=== PATIENT | female | born 1950 | race Caucasian/White ===

== ENCOUNTER 2021-08-17 09:38 | Outpatient (CLI) | payer MEDICARE, MEDICAID, SELFPAY ==
--- NOTE | 2021-08-17 09:45 | US_ITS ---
STUDY: RENAL ULTRASOUND - COMPLETE REASON FOR EXAM: Female, 70 years old. Neoplasm of unspecified behavior of other genitourinary organ TECHNIQUE: Ultrasound evaluation of the kidneys was performed with real-time and static schreiber-scale imaging. COMPARISON: None. FINDINGS: RIGHT KIDNEY: Normal location of the right kidney, which is normal in size. The right kidney measures 10.2 cm x 5.6 x 6.4 cm. There is a normal cortex of the right kidney. The renal cortex measures 1.1 cm. There is a 6.1 cm x 5.4 cm x 5.3 cm cyst in the lower pole of the right kidney. There are no right renal calculi. There is no right hydronephrosis. DISTAL RIGHT URETER: There is non-visualization of the distal right ureter. There is no demonstrated right ureterovesical junction calculus. There is a visualized right ureteral jet. LEFT KIDNEY: Normal location of the left kidney, which is normal in size. The left kidney measures 9.8 cm x 4.5 cm x 4.5 cm. There is a normal cortex of the left kidney. The renal cortex measures 1.2 cm. There is no left renal mass or cyst. There are no left renal calculi. There is no left hydronephrosis. DISTAL LEFT URETER: There is non-visualization of the distal left ureter. There is no demonstrated left ureterovesical junction calculus. There is a visualized left ureteral jet. BLADDER: The distended urinary bladder has a volume of 38 ml. There is a normal wall thickness of the distended urinary bladder. There is no demonstrated mass within the urinary bladder. There are no demonstrated bladder calculi. US/Kidney and Bladder IMPRESSION: There is a 6.1 cm x 5.4 cm x 5.3 cm cyst in the lower pole of the right kidney. Electronically Signed: Joshua Panchal MD at 12:51 EST ,
== END 2021-08-17 23:59 | disposition home or self-care (01) ==
PROVIDERS: PCP Internal Medicine; Referring Provider Urology; Visit Provider Urology
DX: D49.59 Neoplasm of unspecified behavior of other genitourinary organ (principal)
CPT/HCPCS: 76770

== ENCOUNTER 2021-09-23 09:58 | Outpatient (CLI) | payer MEDICARE, MEDICAID, SELFPAY ==
--- NOTE | 2021-09-23 10:08 | MRI_ITS ---
STUDY: MR PELVIS WITH T WITHOUT CONTRAST REASON FOR EXAM: Female, 70 years old. URETHRAL DIVERTICULUM, urgency TECHNIQUE: Standardized fat and water weighted pulse sequences were obtained in all 3 orthogonal planes, pre-and post contrast administration. IV 15ml Dotarem was administered for the contrast portion of the examination. COMPARISON: None. FINDINGS: The urinary bladder is not well-distended but there is relative wall thickening and trabecular thickening. No discrete bladder wall mass. There is urethra has a normal MRI appearance (evident on image 19-26 series 5) without associated mass or diverticulum. No periurethral mass or fluid collection. Visualized hollow viscus structures are unremarkable. There is significant thickening of the endometrial canal measuring up to 2.3 cm with small cystic foci. There is no pelvic fluid. There is no pelvic mass lesion or lymphadenopathy. Normal visualized pelvic arteries. Normal osseous structures. Normal abdominal wall. MRI/Pelvis W/WO Contrast IMPRESSION: 1. No urethral diverticulum or mass. 2. Diffuse, significant thickening of the endometrial canal with cystic transformation, considered abnormal for a postmenopausal female (differential considerations include cystic endometrial hyperplasia or neoplasm). Correlation with history of postmenopausal bleeding and endometrial sampling suggested, if not previously performed. 3. Small volume urinary bladder with trabecular/wall thickening suggesting muscular hyperplasia. Electronically Signed: Black Casey MD ([place]) at 8:37 EDT ,
[2021-09-23 10:31] LABS: CREATININE FINGERSTICK 0.6 mg/dL (0.55-1.02); EGFR FINGERSTICK > 60.0000 mL/min (>60)
== END 2021-09-23 23:59 | disposition home or self-care (01) ==
PROVIDERS: PCP Internal Medicine; Referring Provider Urology; Visit Provider Urology
DX: N36.1 Urethral diverticulum (principal)
CPT/HCPCS: 72197; A9575

== ENCOUNTER 2021-10-07 14:00 | Outpatient (CLI) | payer MEDICARE, MEDICAID, SELFPAY ==
--- NOTE | 2021-10-07 14:43 | RAD_ITS ---
STUDY: X-RAY CHEST REASON FOR EXAM: Female, 70 years old. chest wall pain, pre-op TECHNIQUE: Frontal and lateral views. COMPARISON: Previous chest radiographs of 07/02/2012. FINDINGS: Findings of remote granulomatous infection are again noted. No acute pulmonary infiltrates. No pleural effusion or pneumothorax. Heart size and pulmonary vasculature remain within normal limits. Thoracic aorta again noted to be calcific, and is not elongated. Osseous structures are demineralized. Old posterior left rib fracture. Degenerative spurring in the mid to lower thoracic spine. There is no demonstrated abnormality of the visualized soft tissue structures of the upper abdomen. RAD/Chest PA and Lateral IMPRESSION: No significant interval change or acute process. Electronically Signed: Deandre Garnica MD at 1:30 EDT ,
[2021-10-07 15:35] LABS: NATERA MAILED SPECIMEN
== END 2021-10-07 23:59 | disposition home or self-care (01) ==
LOC: PAVLAB 14:03 → RAD 14:40
PROVIDERS: PCP Internal Medicine; Referring Provider Obstetrics & Gynecology; Visit Provider Obstetrics & Gynecology
DX: R07.89 Other chest pain (principal)
CPT/HCPCS: 36415; 71046

== ENCOUNTER 2021-10-14 10:53 | Day surgery (SDC) | payer MEDICARE, MEDICAID, SELFPAY ==
--- NOTE | 2021-10-13 15:33 | PCM.HP.BLA ---
History and Physical Date of Admission: 10/14/21 History and Physical Exam for surgery 10/14/2021 Intake Vital Signs 10/07/21 13:11 Height 4 ft 9 in Weight: 159 lb 6 oz BMI 34.4 BP 136/80 H Intake Visit Reasons: derik referral possible cancer? MRI in chart Allergies No Known Allergies Allergy (Verified 10/07/21 13:01) Medications amlodipine 10 mg tablet 10 mg PO DAILY 10/07/21 [History Confirmed 10/07/21] paroxetine HCl 40 mg tablet 40 mg PO DAILY 10/07/21 [History Confirmed 10/07/21] PFS Surgical History (Updated 10/07/21 @ 13:07 by Elza Hoffman) History of Family History (Updated 10/07/21 @ 13:08 by Elza Hoffman) Mother Lung cancer Daughter Lung cancer Father Stomach cancer Social History (Updated 10/07/21 @ 13:09 by Elza Hoffman) Smoking Status: Never smoker alcohol intake: current details: occasionally substance use type: does not use caffeine: Yes what type of physical activity do you participate in: none seatbelt use: always do you feel safe at home: Yes additional social history: HPI derik referral possible cancer? MRI in chart Details: EDUARDO ARITA is a 70 year old who presents for consultation due to finding on pelvic MRI of a 2.3 cm thickened endometrium. She denies bleeding. initially the test was performed because the patient thought there may be a bladder issue. She was sent to our office via Dr. Pacheco. The patient states that she has a long family history of cancer (mostly lung and one uterine/ovarian).She states that she has asked in the past to have genetic testing done for the sake of her kids that are living. SHe has one daughter that has from lung cancer and a sister that from ovarian cancer. Pregancy History 3 Elective abortions Hx Para 3 Spontaneous abortions Hx # Term Pregnancies Ectopic pregnancies Hx # Pregnancies Multiple births # of living children ROS Const ROS Unobtainable: All systems reviewed & are unremarkable except as noted in H Resp Resp: Reports system reviewed and no additional complaints, except as documented; Denies cough GI GI: Reports as per HPI Psych Psych: Reports system reviewed and no additional complaints, except as documented Exam Const General: cooperative, healthy appearing, comfortable and no acute distress Resp Effort & Inspection: normal respiratory effort Skin General: no rashes or lesions noted Psych Appearance: grossly normal Speech and Movement: speech and movement normal Coding Level of Care Code Off vis,new,level 5 Diagnoses Urinary urgency R39.15 Anxiety F41.9 Hypertension I10 Hyperlipidemia E78.5 Endometrial thickening on ultrasound R93.89 Chest wall pain R07.89 Assessment and Plan Assessment and Plan (1) Urinary urgency: Status: Acute (2) Anxiety: Status: Acute (3) Hypertension: Status: Chronic (4) Hyperlipidemia: Status: Acute (5) Endometrial thickening on ultrasound: Status: Acute (6) Chest wall pain: Status: Acute Orders: Orders: Chest PA and Lateral Today R07.89 Plan - Dr. Kay Felton DO: plan for hysteroscopy D&C for full evaluation of the thickening of the lining cxr ordered and found to be negative. empower genetic testing ordered per patient request After discussing the patient's diagnosis and treatment plan options, patient wishes to proceed with surgical management. I have discussed with the patient the risks, benefits, and alternatives of the procedure which include but are not limited to risks of anesthesia, bleeding, infection, possible damage to bowel, bladder, or surrounding vasculature which could lead to additional surgery to evaluate any complications. Patient agrees to procedure and wishes to proceed. ACOG/uptodate references given for additional information regarding procedure. UPDATE- I have seen the patient and performed any clinically relevant updates to the history and physical exam. Kay Felton DO
[2021-10-14] VITALS (7 sets, daily range): BP systolic 124–147; BP diastolic 62–70; PULSE 68–89; RESP 16; TEMP 36.8–37.4; O2SAT 93–99; BMI 34.3
[2021-10-14] MEDS: Lactated Ringers 1,000 ML 30 ML IV (11:58)
[2021-10-14 12:05] LABS: Hematocrit 39.5 % (37-47); Hemoglobin 13.3 g/dL (12.0-15.0); Mean Corp Hgb Conc 33.7 g/dL (32-36); Mean Corpuscular Hgb 28.9 pg (27.0-32.0); Mean Corpuscular Volume 85.7 fL (81-99); Mean Platelet Vol. 9.3 fl (6.2-12.0); Platelet Count 286 K/mm3 (150-450); RBC Distribution Width CV 12.9 % (11.6-14.6); RBC Distribution Width SD 39.9 fl (35.1-43.9); Red Blood Count 4.61 M/mm3 (4.2-5.4); White Blood Count 9.1 K/mm3 (4.4-11.0)
--- NOTE | 2021-10-14 12:30 | EMB_PTH ---
PATIENT: EDUARDO ARITA [place]: [facility] [place][id number] AGE/SX: 70/F ROOM: RE10/14/[address]: Dr. Kay Felton DO : 1950 BED: DIS: 10/14/2021 SPEC #: [id number] RECD: 10/14/21 15:11 STATUS: CROW LOUIS #: [id number] OVIDIO: 10/14/21 12:[address]: Kay Felton DEPT: SURGICAL PATHOLOGY RECD BY: Hien Abmriz ENTERED: 10/15/21 08:58 SP TYPE: ENDOM BX/C KEVONHR DR: Dr. Hugo Ro MD Tissues: Endometrium, NOS Procedures: Surgery Specimen Level IV HEADER OPERATION: Hysterectomy, dilation and curettage PRE-OP DIAGNOSIS: Endometrial thickening on ultrasound TISSUE SUBMITTED: Endometrial curettings MICROSCOPIC DIAGNOSIS Endometrium, curettings: Polypoid fragments of simple cystic hyperplasia without atypia. AM:harpal 10/16/2021 MICROSCOPIC DESCRIPTION Slides are reviewed. GROSS DESCRIPTION Received in fixative is one container labeled with the patient's name and designated endometrial curettings. The specimen consists of multiple polypoid fragments of esparza-pink soft tissue that in aggregate measure 5 x 3 x 0.3 cm. The specimen is totally submitted in two cassettes. / SJ:harpal 10/15/2021 TC:5 CPT: 90385
--- NOTE | 2021-10-14 12:54 | PCM.DC ---
Discharge Instructions Diet Discharge Diet: No restrictions Activity Discharge Activity: Return to Normal Activity, May Shower and May Take a Tub Bath (after 1 week) May resume sexual activity in: 1-2 weeks Weight Bearing Status: Weight bearing as tolerated Lifting Restrictions: none Dressing / Incision Call your doctor if you observe: Fever of 101 or Higher, Using more than 1 pad per hour, Shortness of breath and Uncontrolled pain Follow Up Care Please Follow Up With: Kay Felton DO When: Call [phone] to schedule appointment. Test Results: Test results from this visit will be discussed in further detail at your follow-up appointment, if applicable. Discharge Plan Admission Primary Reason for Your Visit: dilation and curettage Attending Provider: Kay Felton Primary Care Provider: Hugo Ro Discharge Orders/Prescriptions Prescriptions: New oxycodone-acetaminophen [Percocet] 5-325 mg tablet 1 tab PO Q4H PRN (Reason: pain) 3 Days Qty: 5 RF: 0 ibuprofen 600 mg tablet 600 mg PO Q6H PRN (Reason: pain) 7 Days Qty: 28 RF: 0 Continued paroxetine HCl [Paxil] 40 mg tablet 40 mg PO DAILY RF: 0 amlodipine 10 mg tablet 10 mg PO DAILY RF: 0 omeprazole 40 mg capsule,delayed release(DR/EC) 40 mg PO DAILY RF: 0 Gemtesa 75 mg tablet 75 mg PO DAILY RF: 0 atorvastatin 10 mg tablet 10 mg PO QHS RF: 0 nortriptyline 10 mg capsule 20 mg PO QHS RF: 0 osteo biflex 1 tab PO DAILY RF: 0 multivitamin Tablet 1 tab PO DAILY RF: 0 vitamin E 200 unit capsule 200 unit PO DAILY RF: 0 cholecalciferol (vitamin D3) 50 mcg (2,000 unit) capsule 50 mcg PO DAILY RF: 0 Referrals / Follow Up: Hugo Ro MD [Primary Care Provider] - Disposition Disposition (needs filled in before D/C Order can be placed): Home, Self Care
--- NOTE | 2021-10-14 12:59 | PCM.OPRPT ---
Problems Associated Problem List Diagnoses (1) Endometrial thickening on ultrasound: Report of Operation Date of Procedure: 10/14/21 Pre-Operative Diagnosis: thickened endometrium, post bleeding Post-Operative Diagnosis: thickened endometrium, post bleeding Surgery/Procedure Performed:: Hysteroscopy Dilation and curettage Surgeon: Kay Felton Type of Anesthesia: Local MAC Anesthesiologist: Michael Whitten Specimen's removed: endometrial curetting's Estimated Blood Loss (mL): 5cc Description of Procedure: Patient was prepped and draped in a normal sterile fashion under MAC anesthesia. A weighted speculum was placed in the vagina and the anterior lip of the cervix was grasped with a single-tooth tenaculum. A paracervical block was placed with 1% lidocaine. Cervix was progressively dilated to allow passage of a 5 mm hysteroscope. The lining was fully visualized and noted to have a large uterine polyp . Uterine sounded to 9 cm. Curettage and polypectomy was performed and the specimen was sent to pathology. All instruments were removed from the vagina and excellent hemostasis was noted. Patient was awoken and taken to recovery in stable condition. Complications none Admit VTE Documentation VTE Present on Admission: Yes VTE Mechan Device Prophylaxis: SCD's VTE Pharm Prophylaxis ordered?: No Reason prophylaxis not ordered:: Treatment Not Indicated Multi Select Codes Urinary/Genital Urinary/Genital CPT Codes: 49122 Hysteroscopy,EMC, Polypectomy
[2021-10-14] MEDS: Lidocaine 1% (50 ml mdv) 50 ML Vial (13:11)
[2021-10-14] MEDS: HYDROcodone Bitartrate/Apap 5/325 Tablet PO (14:21)
== END 2021-10-14 23:59 | disposition home or self-care (01) ==
LOC: SDC 10:54 → AC 12:54
PROVIDERS: PCP Internal Medicine; Referring Provider Obstetrics & Gynecology; Visit Provider Obstetrics & Gynecology
PROC: 0UDB8ZZ Extraction of Endometrium, Via Natural or Artificial Opening Endoscopic (ICD-10-PCS; CPT 58558; principal; 2021-10-14 12:20)
DX: N85.00 Endometrial hyperplasia, unspecified (principal); F41.9 Anxiety disorder, unspecified; R39.15 Urgency of urination; I10 Essential (primary) hypertension; M19.90 Unspecified osteoarthritis, unspecified site; F32.A Depression, unspecified; K21.9 Gastro-esophageal reflux disease without esophagitis; E78.00 Pure hypercholesterolemia, unspecified; Z79.899 Other long term (current) drug therapy
CPT/HCPCS: 58558; 00952; 85027; 86850; 86900; 86901; 87426; 88305; J7120; J2405

== ENCOUNTER 2022-11-22 17:00 | Outpatient (RCR) | payer MEDICARE, MEDICAID, SELFPAY ==
--- NOTE | 2022-08-23 18:50 | HP.PTEVAL ---
Patient's Visit Information EDUARDO ARITA is a 71 year old F referred to Physical Therapy by Dr. Diane Pacheco MD with a diagnosis of URGE INCONTINENCE. Date of Evaluation: 08/23/22 Physical Therapist: Fatmata Mckinney PT, Cert MDT - Visit Plan Frequency: 1x/Week Duration: 8-10 WKS Plan: *CHECK AUTH*. Behavioral modifications for Urge Incontinences. Pelvic Floor strengthening. Instruction in healthy bladder habits. - Subjective Work/Leisure: RETIRED. Disability: NO. Present symptoms: PATIENT REPORTS SHE IS WETTING HERSELF A LOT. STATES SHE CAN'T MAKE IT TO THE BATHROOM IN TIME. SHE REPORTS SOMETIMES SHE CAN MAKE IT TO THE BATHROOM AND SOMETIMES SHE CAN'T. GETTING UP TO GO TO THE BATHROOM 3-4 TIMES AT NIGHT. Present since: ABOUT 1 YEAR. Pain Scale: NO. Is it getting better, worse or staying the same: GETTING WORSE. Commenced as a result of: NO APPARENT REASON. Worse: NO APPARENT REASON. Better: NOTHING. Disturbed sleep: YES. Previous history/Previous treatment: NONE. Treatment this episode: TRIED MEDICINE BUT DIDN'T SEEM TO HELP SO SHE REPORTS SHE IS NOT CURRENTLY ON MEDICINE FOR INCONTINENCE. Coughing/sneezing/straining: PATIENT DENIES URINE LEAKING IN THESE CASES. Gait: NORMAL. NO AD'S. Bowel Dysfunction: NO. Accidents: FELL DOWN ABOUT 5 STEPS A FEW YEARS AGO AND HURT HER RIGHT SIDE - INTERMITTENT R SIDE PAIN CURRENLTY. Unexplained weight loss: NO. PMH/Recent major surgery: HTN, HIGH CHOLESTEROL. CHRONIC LBP (BUT DENIES PELVIC PAIN). OTHER: NOT WEARING PADS. WETS CLOTHES AND HAS TO CHANGE THEM. PATIENT REPORTS SHE WOULD RATHER NOT HAVE A PELVIC EXAM IF POSSIBLE. - Objective Sitting/Standing Posture: POOR. FH. RSH'S. REDUCED LORDOSIS BUT NO RELEVANT LATERAL SHIFT. Active Correction of posture: NE. Other Observations: INDEP GAIT. INDEP TRANSFERS. INDEP SIT TO STAND WITHOUT UE ASSIST. Sensory deficit: LOUIS LE LIGHT TOUCH SENSATION GROSSLY INTACT AND SYMMETRICAL. ROM deficit: TIGHT LOUIS HIPS ALL PLANES. TIGHT LOUIS GASTROC SOLEUS COMPLEX'S. Motor deficit: LOUIS LE'S GROSSLY 5/5 WITH MMT'ING EXCEPT HIPS 4/5. Dural Signs: NEGATIVE LOUIS LE'S. Lumbar mvmt loss: flex - NIL. ext - MOD. R SG - MOD. L SG - MOD. Core strength: POOR. Palpation: PATIENT DEFERRED INTERNAL PELVIC EXAM. FUNCTIONAL SCREEN: Incontinence Impact Questionnaire Score: 11. Urogenital Distress Inventory Score: 7. TREATMENT: NEUROMUSCULAR REEDUCATION - RETRAINING OF MVMT AND POSTURE FOR SITTING, LYING AND STANDING ACTIVITIES. - Goals Goal 1:: DECREASE URINARY LEAKING EPISODES TO ONE OR LESS PER DAY Goal Time Frame: 8-12 Weeks Goal 2:: PATIENT WILL SUCCESSFULLY DELAY VOIDING FOR 10 MINUTES WHEN URGENCY OCCURS Goal Time Frame: 8-12 Weeks Goal 3:: DEVELOP HEALTHY FLUID INTAKE HABITS WITH FLUID INTAKE OF ? BODY WEIGHT IN OUNCES PER DAY AND 2/3 BEING WATER. Goal Time Frame: 8-12 Weeks Goal 4:: PATIENT WILL BE INDEP WITH A HEP/HOME INSTRUCTIONS FOR CONTINUED IMPROVEMENT ONCE FORMAL PHYSICAL THERAPY CONCLUDES. Goal Time Frame: 8-12 Weeks - Anticipated Interventions Patient/Client Instruction: Educate patient on: Condition, Plan of Care, Risk Factors For the Purpose of:: To improve self management Therapeutic Exercise to Include: Strength training, Neuromotor development Functional Training to Include: Functional home training For the Purpose of:: To foster healthy habits, To improve self management Thank you for the opportunity to evaluate your patient. For Medicare and Medicare HMO plans, please review the plan of care and approve it. It will need to be FAXED BACK to us at [phone] for Medicare purposes. For Medicare only, by signing this I certify the plan of care. Please let me know if there are questions or concerns regarding this plan of care. Physician Signature: Date:
--- NOTE | 2023-02-07 15:20 | HP.PT.NRP ---
Patient Information Patient Information: EDUARDO ARITA was seen in my office for initial evaluation on 08/23/22. The following Plan of Care was established for this patient: POC Established Initial Frequency: 1x/Week Initial Duration: 8-10 WKS Anticipated Interventions Patient/Client Instruction: Educate patient on: Condition, Plan of Care and Risk Factors For the Purpose of:: To improve self management Therapeutic Exercise to Include: Strength training and Neuromotor development Functional Training to Include: Functional home training For the Purpose of:: To foster healthy habits and To improve self management Last Seen Last Seen: This patient was last seen in our office 11/22/22. Pertinent comments regarding their Physical therapy will appear below: This patient has not returned to Physical Therapy and is appropriate to return to MD for further follow-up as needed. At this point I will be discontinuing this patient from physical therapy. I would be happy to see this patient again in the future if found appropriate by the physician. Thank you! Fatmata Mckinney, PT, Cert MDT
== END 2022-11-22 19:00 | disposition home or self-care (01) ==
LOC: PT 17:00
PROVIDERS: PCP Internal Medicine; Referring Provider Urology; Visit Provider Urology
DX: N39.41 Urge incontinence (principal)
CPT/HCPCS: 97162; 97164; 97530

== ENCOUNTER → 2022-12-15 | Outpatient (CLI) | payer MEDICARE, MEDICAID, SELFPAY ==
[2022-12-15 10:45] LABS: Anion Gap 4 (5-15); BUN 20 mg/dL (7-18); BUN/Creat Ratio 27.5 RATIO (10-20); Calcium,Total 9.6 mg/dL (8.5-10.1); Chloride 111 mmol/L (98-107); Creatinine, Serum 0.73 mg/dL (0.55-1.02); EST Glomerular Filtration Rate 83 mL/min (>60); Est Glom Filt Rate - Afr Amer 101 mL/min (>60); Glucose 99 mg/dL (74-106); Potassium 3.9 mmol/L (3.5-5.1); Sodium Level 140 mmol/L (136-145)
== END | disposition home or self-care (01) ==
LOC: MTLAB 08:50
PROVIDERS: PCP Internal Medicine; Referring Provider Urology; Visit Provider Urology
DX: R31.0 Gross hematuria (principal)
CPT/HCPCS: 36415; 80048

== ENCOUNTER → 2022-12-24 | Outpatient (CLI) | payer MEDICARE, MEDICAID, SELFPAY | END | disposition home or self-care (01) | LOC: SL 19:54 | PROVIDERS: PCP Internal Medicine; Referring Provider Nurse Practitioner; Visit Provider Nurse Practitioner | DX: G47.33 Obstructive sleep apnea (adult) (pediatric) (principal) | CPT/HCPCS: 95810 ==

== ENCOUNTER → 2022-12-31 | Outpatient (CLI) | payer MEDICARE, MEDICAID, SELFPAY ==
--- NOTE | 2022-12-31 17:36 | CT_ITS ---
STUDY: CT ABDOMEN AND PELVIS WITH AND WITHOUT CONTRAST REASON FOR EXAM: Female, 72 years old. GROSS HEMATURIA RADIATION DOSAGE (If Supplied By Facility): CTDIvol = ( 15.81 ) mGy, DLP = ( 2262.16 ) mGycm TECHNIQUE: Transaxial images were obtained from the dome of the diaphragm to the symphysis pubis without oral contrast. ISOVUE 300-100ml was administered. Sagittal and coronal images were reconstructed. Individualized dose optimization techniques were used for this CT. COMPARISON: None. FINDINGS: The visualized lung bases are unremarkable. The visualized portions of the heart are within normal limits. Normal liver. Normal gallbladder and extrahepatic biliary system. There are multiple benign calcified granulomata of the spleen. Normal pancreas. Normal bilateral adrenal glands. 6.2 cm simple right renal cyst. No further follow-up required as it appears simple/benign. Normal left kidney. Normal visualized stomach. Normal small intestine. Normal colon. Appendix not identified. Normal abdominal aorta. Normal inferior vena cava. Normal retroperitoneum. Bladder filled with contrast. Right inguinal hernia containing loop of small bowel without evidence of obstruction. Anterior subluxation L4-5. CT/CT Abd/Pelvis W/WO Contrast IMPRESSION: No acute disease. Incidental findings as above. Electronically Signed: Bc Blackwood MD at 23:55 EDT ,
== END | disposition home or self-care (01) ==
LOC: CT 17:33
PROVIDERS: PCP Internal Medicine; Referring Provider Urology; Visit Provider Urology
DX: R31.0 Gross hematuria (principal)
CPT/HCPCS: 74178; Q9967

== ENCOUNTER → 2023-01-04 | Outpatient (CLI) | payer MEDICARE, MEDICAID, SELFPAY ==
--- NOTE | 2023-01-04 08:40 | CYSPIN_PTH ---
PATIENT: EDUARDO ARITA LOC: [facility] U#:[id number] AGE/SX: 72/F ROOM: RE01/04/[address]: Dr. Diane Pacheco MD : 1950 BED: DIS: 01/04/2023 SPEC #: [id number] RECD: 01/05/23 08:39 STATUS: CROW MISSY #: [id number] OVIDIO: 01/04/23 08:[address]: Diane Pacheco DEPT: CYTOLOGY RECD BY: Hien Ambriz ENTERED: 01/05/23 08:39 SP TYPE: CYSPIN FL OTHR DR: Dr. Hugo Ro MD Tissues: Urine Procedures: Pap Stain (control) Special Stain Group II Cytospin Fluid HEADER OPERATION: Not noted PRE-OP DIAGNOSIS: Gross hematuria TISSUE SUBMITTED: Urine for cytology DIAGNOSIS CYTOLOGY Urine for cytology (cytospin): Negative for high-grade urothelial carcinoma (MDGUC), Klarissa System Category II. See comment. AM:harpal 01/05/2023 COMMENT The specimen primarily consists of squamous epithelial cells and abundant bacterial colonies. Clinical correlation is suggested. The Klarissa System for urine cytology diagnostic categorization was used in the evaluation of this case. CYTOLOGY STUDY Slides are reviewed. CYTOLOGY GROSS Received is 30 ml of cloudy yellow fluid labeled with the patient's name and and designated per the requisition as urine. Submitted for cytology preparation. / harpal 01/04/2023 TC:5 CPT: 42330
[2023-01-04 18:14] LABS: Cytology, Body Fluid / CSF SEE PATHOLOGY REPORT
== END | disposition home or self-care (01) ==
PROVIDERS: PCP Internal Medicine; Visit Provider Urology
DX: R31.0 Gross hematuria (principal)
CPT/HCPCS: 88108; 88313

== ENCOUNTER → 2023-01-14 | Outpatient (CLI) | payer MEDICARE, MEDICAID, SELFPAY | END | disposition home or self-care (01) | LOC: SL 20:16 | PROVIDERS: PCP Internal Medicine; Visit Provider Internal Medicine | DX: G47.33 Obstructive sleep apnea (adult) (pediatric) (principal) | CPT/HCPCS: 95811 ==

== ENCOUNTER → 2023-02-16 | Outpatient (CLI) | payer MEDICARE, MEDICAID, SELFPAY | END | disposition home or self-care (01) | LOC: SL 08:56 | PROVIDERS: PCP Internal Medicine; Visit Provider Internal Medicine | DX: R69 Illness, unspecified (principal) ==

== ENCOUNTER → 2024-01-11 | Outpatient (CLI) | payer MEDICARE, MEDICAID, SELFPAY ==
--- NOTE | 2024-01-11 09:11 | US_ITS ---
STUDY: ULTRASOUND OF THE FEMALE PELVIS - COMPLETE REASON FOR EXAM: Female, 73 years old. follow up after 2021 LMP: Menopause TECHNIQUE: Transabdominal and Transvaginal TECHNICAL QUALITY: Adequate. COMPARISON: None. FINDINGS: The uterus is anteverted and is in a midline position. The uterus measures 5.9 x 3.7 x 2.5 cm. Normal uterine cervix. The endometrium measures 6 mm in thickness, and is hyperechoic. There is no demonstrated endometrial mass. 2 cm oval slightly hypoechoic mass within the anterior aspect of the lower uterine segment consistent with an intramural fibroid. I.U.D. - The patient does not have an I.U.D. The ovaries are not visualized.. There is no fluid in the cul-de-sac. The pre void volume of the bladder was ml. The post void volume of the bladder was ml. Polycystic ovary disease: No. US/Pelvic w/ Transvaginal IMPRESSION: Small fibroid in the lower uterine segment. Electronically Signed: Won Burrows MD at 11:33 EDT ,
== END | disposition home or self-care (01) ==
LOC: OPUS 09:09
PROVIDERS: PCP Internal Medicine; Referring Provider Obstetrics & Gynecology; Visit Provider Obstetrics & Gynecology
DX: R93.89 Abnormal findings on diagnostic imaging of other specified body structures (principal); Z87.59 Personal history of other complications of pregnancy, childbirth and the puerperium
CPT/HCPCS: 76830; 76856

== ENCOUNTER → 2024-05-07 | Outpatient (CLI) | payer MEDICARE, MEDICAID, SELFPAY ==
--- NOTE | 2024-05-07 14:30 | EMB_PTH ---
PATHOLOGY RESULTS PATIENT: EDUARDO ARITA LOC: [facility] U#:[id number] AGE/SX: 73/F ROOM: RE05/07/[address]: Dr. Kay Felton DO : 1950 BED: DIS: 05/07/2024 SPEC #: [id number] RECD: 05/07/24 16:22 STATUS: CROW MISSY #: [id number] OVIDIO: 05/07/24 14:[address]: Kay Felton DEPT: SURGICAL PATHOLOGY RECD BY: Hien Ambriz ENTERED: 05/08/24 10:01 SP TYPE: ENDOM BX/C VETO DR: Dr. Hugo Ro MD Tissues: Endometrium, NOS Procedures: Surgery Specimen Level IV HEADER OPERATION: Endometrial biopsy PRE-OP DIAGNOSIS: Thickened endometrium TISSUE SUBMITTED: Endometrial lining MICROSCOPIC DIAGNOSIS Endometrial biopsy: Scant fragments of benign endometrial epithelium. See comment. ABIGAIL/ 05/09/2024 COMMENT Clinical correlation and appropriate follow up are necessary. MICROSCOPIC DESCRIPTION Slides are reviewed. GROSS DESCRIPTION Received is one container labeled with the patient's name and not further designated. The specimen consists of a scant amount of soft tissue. The specimen is totally submitted for cell block preparation. 05/08/2024 TC:4 CPT:21934
== END | disposition home or self-care (01) ==
LOC: LABSPEC 16:08
PROVIDERS: PCP Internal Medicine; Referring Provider Obstetrics & Gynecology; Visit Provider Obstetrics & Gynecology
DX: R93.89 Abnormal findings on diagnostic imaging of other specified body structures (principal)
CPT/HCPCS: 88305

== ENCOUNTER → 2024-06-08 | Outpatient (CLI) | payer MEDICARE, MEDICAID, SELFPAY ==
--- NOTE | 2024-06-08 07:01 | BI_ITS ---
MAMMOGRAPHY - BILATERAL SCREENING REASON FOR EXAM: Female, 73 years old. Routine annual screening examination. PERTINENT HISTORY: Non-contributory. TECHNIQUE: Digital bilateral breast jj (3D mammographic acquisition) in the CC and MLO projections. 2-D mediolateral oblique (MLO) and craniocaudad (CC) views of both breasts were obtained. CAD: Full Field Digital Mammography with Computer Added Detection was performed. COMPARISON: Comparison is made with prior outside examination dated July 18, 2023. FINDINGS: Breast Composition: There are scattered areas of fibroglandular density. There are no dominant masses or suspicious calcifications. No other significant abnormalities are identified. There has been no significant change since the prior study. BI/SCRN MAMM (CAD)W/JJ BILAT IMPRESSION: Stable bilateral screening mammogram. Yearly follow-up mammogram recommended. (A) ASSESSMENT CATEGORY: BIRADS Category 1: Negative. A letter regarding these results will be sent to the patient by the facility within 30 days. Approximately 10% of breast cancers are not detected by mammography. A normal mammogram should not delay biopsy of a clinically suspicious abnormality. [id number] Electronically Signed: Joshua Panchal MD at 8:45 EST ,
== END | disposition home or self-care (01) ==
PROVIDERS: PCP Internal Medicine; Referring Provider Obstetrics & Gynecology; Visit Provider Obstetrics & Gynecology
DX: Z12.31 Encounter for screening mammogram for malignant neoplasm of breast (principal)
CPT/HCPCS: 77063; 77067

== ENCOUNTER → 2024-08-08 | Outpatient (CLI) | payer MEDICARE, MEDICAID, SELFPAY ==
--- NOTE | 2024-08-08 16:05 | US_ITS ---
PROCEDURE: PELVIC W/ TRANSVAGINAL REASON FOR EXAM: Postmenopausal. Endometrial thickening. TECHNIQUE: Transabdominal and transvaginal pelvic ultrasound COMPARISON: None. FINDINGS: Measurements: Uterus: 6.3 cm x 4.2 cm x 2.6 cm. 2 small fibroids are seen in the lower uterine segment. The larger measures 1.4 cm x 2 cm x 1 cm. Endometrial Thickness: 6.3 mm. This is thickened. The endometrium is hyperechoic. There is evidence of nabothian cyst. Right Ovary: 2.7 cm x 2.9 cm x 2.3 cm. Left Ovary: 1.7 cm x 0.9 cm x 0.9 cm. TRANSABDOMINAL: Uterus: The uterus is anteverted. 2 small fibroids are seen. Nabothian cyst seen. Endometrium: Endometrium is thickened and measures 6.3 mm for the postmenopausal state. Right ovary: There is a 2.4 cm x 2.1 cm x 2 cm right ovarian cyst. Left ovary: Normal size and echotexture. No large pelvic mass identified. Transvaginal sonography was performed to better visualize the endometrium. TRANSVAGINAL: Uterus: Anteverted. Normal contour and myometrial echotexture. Endometrium: Homogeneously thickened. Right ovary: Normal size and echotexture. Left ovary: Normal size and echotexture. Other adnexal findings: None. Cul-de-sac: No free intraperitoneal fluid identified. No tenderness. US/Pelvic w/ Transvaginal IMPRESSION: Thickened endometrium for the patient's age. There are 2 small uterine fibroids. Reading Location: [place] [id number]
== END | disposition home or self-care (01) ==
LOC: US 16:03
PROVIDERS: PCP Internal Medicine; Referring Provider Obstetrics & Gynecology; Visit Provider Obstetrics & Gynecology
DX: R93.89 Abnormal findings on diagnostic imaging of other specified body structures (principal)
CPT/HCPCS: 76830; 76856

== ENCOUNTER 2024-08-13 18:08 | Emergency (ER) | payer MEDICARE, MEDICAID, SELFPAY ==
[2024-08-13 18:09] VITALS: BP 103/91; PULSE 95; RESP 16; TEMP 36.8; O2SAT 98
[2024-08-13 20:08] VITALS: BP 100/88; PULSE 74; RESP 16; O2SAT 98
--- NOTE | 2024-08-13 21:29 | EKG12_ITS ---
Test Reason : DYSRHYTHMIA Blood Pressure : */* mmHG Vent. Rate : 88 BPM Atrial Rate : 88 BPM P-R Int : 128 ms QRS Dur : 78 ms QT Int : 384 ms P-R-T Axes : 68 58 11 degrees QTcB Int : 464 ms Normal sinus rhythm Nonspecific T wave abnormality Abnormal ECG Confirmed by QUIQUE MOLINA, AMJOR ([id number]), marketing editor LENA RUBIO ([id number]) on 08/14/2024 8:55:04 AM Referred By: Confirmed By: MAJOR LEI MD
[2024-08-13 21:50] LABS: Absolute Lymphocyte Count 1.18 X10^3/uL (0.83-4.51); Absolute Neutrophil Count 6.8 X10^3/uL (2.0-7.7); Basophil# 0.01 X10^3/uL; Basophil% 0.1 % (0-1); Hematocrit 35.9 % (37-47); Hemoglobin 12.5 g/dL (12.0-15.0); Lymphocyte # 1.18 X10^3/ul (0.83-4.51); Lymphocyte % 13.9 % (19-41); Mean Corp Hgb Conc 34.8 g/dL (32-36); Mean Corpuscular Hgb 29.8 pg (27.0-32.0); Mean Corpuscular Volume 85.5 fL (81-99); Mean Platelet Vol. 9.6 fl (6.2-12.0); Monocyte# 0.45 X10^3/uL; Monocyte% 5.3 % (0-10); NRBC Flagged by Analyzer 0 % (0-5); Neutrophil # 6.81 X10^3/uL (2.7-7.7); Neutrophil % 80.5 % (47-70); Platelet Count 205 K/mm3 (150-450); RBC Distribution Width CV 12.5 % (11.6-14.6); RBC Distribution Width SD 38.3 fl (35.1-43.9); White Blood Count 8.5 K/mm3 (4.4-11.0)
[2024-08-13 22:00] VITALS: BP 120/55; PULSE 85; RESP 15; O2SAT 98
[2024-08-13] MEDS: 0.9% Normal Saline (1000mL) 1,000 ML 999 ML IV (22:00)
[2024-08-13] MEDS: Ondansetron 4 MG/2 ML Vial IV (22:01)
[2024-08-13 22:04] VITALS: BMI 32.2
[2024-08-13 22:07] LABS: AST(SGOT) 17 U/L (15-37); Alanine Aminotransfer ALT/SGPT 19 U/L (13-56); Albumin, Serum 3.4 g/dL (3.2-5.0); Alkaline Phosphatase 55 U/L (45-117); Anion Gap 9 (5-15); BUN 23 mg/dL (7-18); BUN/Creat Ratio 25.7 RATIO (10-20); Calcium,Total 9.2 mg/dL (8.5-10.1); Chloride 112 mmol/L (98-107); Creatinine, Serum 0.89 mg/dL (0.55-1.02); EST Glomerular Filtration Rate 65 mL/min (>60); Est Glom Filt Rate - Afr Amer 79 mL/min (>60); Estimated Creatinine Clearance 46.85 ml/min; Globulin 3.4 g/dL (2.2-4.2); Glucose 100 mg/dL (74-106); Lipase 156 U/L (13-75); Potassium 3.5 mmol/L (3.5-5.1); Protein, Total 6.8 g/dL (6.4-8.2); Sodium Level 140 mmol/L (136-145)
--- NOTE | 2024-08-13 22:18 | CT_ITS ---
PROCEDURE: CTA ABD/PELVIS W/WO CONTRAST REASON FOR EXAM: Left lower quadrant pain. Dark stool. Nausea, vomiting, diarrhea. TECHNIQUE: CTA imaging of the abdomen and pelvis with intravenous contrast. 3D reconstructions. COMPARISON: CT abdomen/pelvis from 12/31/2022. FINDINGS: Abdominal aorta demonstrates normal caliber without aneurysm or dissection. There are atherosclerotic calcifications of the abdominal aorta. There are calcifications at the origin of the celiac artery with mild stenosis. Otherwise the celiac artery is patent. There are calcifications at the origin of the superior mesenteric artery with no significant stenosis. Bilateral renal arteries are patent. Inferior mesenteric artery is patent. Bilateral common iliac, internal iliac, and external iliac arteries are patent. No definite active hemorrhage is identified. Lung bases are clear. There are bilateral posterior medial diaphragmatic hernias. Liver and spleen are limited due to the phase of contrast. Multiple splenic calcifications likely relates to prior granulomatous disease. Gallbladder, biliary system, pancreas, and adrenal glands are unremarkable. There is wall thickening of the stomach. There is a duodenal diverticulum. Bilateral kidneys enhance homogeneously without hydronephrosis or hydroureter. There is an inferior pole right renal cyst measuring 6.6 cm. Urinary bladder is underdistended. Uterus is present. Colonic diverticulosis is identified without diverticulitis. There is a right inguinal hernia which contains a short segment of small bowel without obstruction. No free air or free fluid is identified. Evaluation of the osseous structures demonstrates degenerative changes. There is chronic grade 1 anterolisthesis of L4-L5. There is associated uncovering of the disc/disc bulge at L4-L5 as well as advanced facet arthropathy with resultant severe central canal stenosis. Additionally, there is a disc bulge with facet/flavum hypertrophy at L3-L4 with severe central canal stenosis. CT/CTA Abd/Pelvis W/WO Contrast IMPRESSION: 1. No evidence of abdominal aortic aneurysm or dissection. Atherosclerotic urbano cifications are present. No definite active hemorrhage is seen. 2. Wall thickening of the stomach which may relate to underdistention or gastri tis. 3. Colonic diverticulosis without diverticulitis. 4. Right inguinal hernia which contains a short segment of small bowel without obstruction. 5. Grade 1 anterolisthesis of L4-L5 with uncovering of the disc/disc bulge as w ell as advanced facet arthropathy with resultant severe central canal stenosis. Additionally at L3-L4, there is a disc bulge wi th facet/flavum hypertrophy with severe central canal stenosis. Findings can be better assessed with MRI of the lumbar spine o n an outpatient basis. 6. Additional findings as above. One or more dose reduction techniques were used (e.g., Automated exposure contr ol, adjustment of the mA and/or kV according to patient size, use of iterative reconstruction technique). Reading Location: [place]
[2024-08-13 22:20] LABS: Color, Urine Yellow (Yellow); Glucose, Dipstick Normal (Normal); Ketone-Dipstick Negative (Negative); Leukocyte Esterase-Dipstick 500 /ul (Negative); Nitrite-Dipstick Negative (Negative); Occult Blood-Urine 10 /ul (Negative); Protein-Dipstick 30 mg/dl (Negative); Specific Gravity, Urine 1.015 (1.002-1.030); Urine Clarity Clear (Clear); Urine Urobilinogen Normal (Normal)
[2024-08-13 22:21] LABS: Urine Bilirubin Dipstick 1 mg/dL (Negative)
[2024-08-13 22:27] LABS: Bacteria RARE /hpf (None Seen); Fine Granular Cast- Urine 0-5 SEEN /lpf (0-5); Mucous, Urine 1+ /hpf (<or=2+); Red Blood Cells-Urine 0-5 SEEN /hpf (0-5); Squamous Epithelial Cells - UA 0-5 SEEN /hpf (5-10); White Blood Cells 10-25 SEEN /hpf (0-5)
[2024-08-13 22:31] LABS: Lactic Acid 1.6 mmol/L (0.4-1.9)
--- NOTE | 2024-08-13 22:45 | EX.ED.DYSGE1 ---
HPI History of Present Illness Chief Complaint: Nausea/Vomiting/Diarrhea Narrative Narrative: Patient is a 73-year-old female past medical history of anxiety, GERD, hypercholesteremia, hypertension who presented to the emergency department with a chief complaint of nausea vomiting diarrhea. Patient states that her symptoms started around 1 AM denies any sick contacts. Patient states that her stools have been dark in nature but denies any heavy NSAID use denies any blood thinner medications. Patient states that she went to urgent care they were concerned that she was dehydrated and sent her here for further evaluation management. [facility] Medical History Genetic testing Status post hysteroscopy Wears glasses Depression Anxiety Arthritis Bladder disease High cholesterol Gastric reflux Shortness of breath on exertion Former smoker CPAP (continuous positive airway pressure) dependence Hypertension Home Medications ?Medication ?Instructions ?Recorded ?Last Taken ?Type amlodipine 10 mg tablet 10 mg PO DAILY 10/07/21 Unknown History paroxetine HCl 40 mg tablet (Paxil) 40 mg PO DAILY 10/07/21 Unknown History atorvastatin 10 mg tablet 10 mg PO QHS 10/08/21 Unknown History cholecalciferol (vitamin D3) 50 50 mcg PO DAILY 10/08/21 Unknown History mcg (2,000 unit) capsule multivitamin 1 tab PO DAILY 10/08/21 Unknown History omeprazole 40 mg capsule,delayed 40 mg PO DAILY 10/08/21 Unknown History release osteo biflex 1 tab PO DAILY 10/08/21 Unknown History vibegron 75 mg tablet (Gemtesa) 75 mg PO DAILY 10/08/21 Unknown History vitamin E 200 unit capsule 200 unit PO DAILY 10/08/21 Unknown History dicyclomine 20 mg tablet 20 mg PO TID #20 tabs 08/13/24 Unknown Rx ondansetron 4 mg disintegrating 4 mg PO Q6H PRN nausea and 08/13/24 Unknown Rx tablet vomiting #20 tabs Allergy/AdvReac Type Severity Reaction Status Date / Time No Known Allergies Allergy Verified 08/03/24 15:49 Family History Mother Lung cancer Daughter Lung cancer Father Stomach cancer Surgical History S/P dilation and curettage (~10/14/21) History of Social History Smoking Status: Former smoker alcohol intake: current details: occasionally substance use type: does not use caffeine: Yes what type of physical activity do you participate in: none seatbelt use: always do you feel safe at home: Yes additional social history: ROS ROS ED ROS Narrative Constitutional: Denies fevers, chills, headaches Eyes: Denies change in vision double vision blurry vision Cardiovascular: Denies chest pain Respiratory: Denies shortness of breath Abdomen: Complains of abdominal pain vomiting diarrhea as noted above : Denies any urinary symptoms Neurological: Denies numbness, weakness, tingling Musculoskeletal: Denies back pain Skin: Denies rashes or lesions EXAM Physical Exam Narrative Exam Narrative: General: Patient is lying in bed rest comfortably did not appear to be in acute distress Head: Atraumatic, normocephalic Eyes: PERRL bilaterally, EOMI bilaterally, no conjunctival injection noted Neck: Soft, supple, trach midline Cardiovascular: Regular rate and rhythm no murmurs gallops rubs noted Respiratory: Clear to auscultation bilaterally no rales rhonchi or wheezes noted Abdomen: Soft, nondistended, tenderness palpation left lower quadrant no rebound or guarding on exam Extremities: +4/5 strength noted in the bilateral upper and lower extremities, radial pulses +2/4 in the bilateral extremities Neurological: Patient following commands knew that she was at [facility] year is 2024 Skin: Warm, dry, intact no rashes or lesions noted Const Vital Signs: 08/13/24 18:09 08/13/24 20:08 08/13/24 22:00 Temperature 98.2 F Temperature Source Temporal Pulse Rate 95 74 85 Respiratory Rate 16 16 15 Blood Pressure 103/91 H 100/88 H 120/55 L Blood Pressure Mean 95 92 76 Pulse Ox 98 98 98 Oxygen Delivery Method Room Air Room Air Room Air MDM MDM MDM Narrative Medical decision making narrative: Patient is a 73-year-old female who presented to the Emergency Department with a chief complaint of abdominal pain nausea vomiting diarrhea. On the differential diagnose includes but not limited to viral gastroenteritis, small bowel obstruction, pancreatitis, appendicitis, diverticulitis. Once workup is obtained reviewed she will be reevaluated. Patient CBC reviewed showed no evidence leukocytosis white blood count normal at 8.5, hemoglobin 12.5, platelet count was noted be normal at 205. Patient sodium normal 140, potassium normal 3.5, anion gap normal at 9. Patient's creatinine was normal at 0.89, lactic acid normal at 1.6. Patient's AST and ALT were 17 and 19 respectively. Patient lipase was elevated 156, urinalysis reviewed showed 500 leukocyte esterase negative nitrites 10-25 white cells with rare bacteria she does not have any urinary symptoms this was sent for culture. Patient CTA of the abdomen and pelvis was reviewed showed no evidence of abdominal aortic aneurysm or dissection. Atherosclerotic calcifications are present. No definitive acute hemorrhage is seen. Wall thickening of the stomach which may relate to underdistention or gastritis. Colonic diverticulosis without diverticulitis. Patient has a right inguinal hernia containing a short segment of small bowel without obstruction. Patient has grade 1 anterior thesis of L4-L5 with uncovering of the disc/disc bulge as well as advanced facet arthropathy with resultant severe canal central stenosis. Additionally at L3-L4 there is also disc bulge with central canal stenosis recommending outpatient MRI. Patient's rectal exam was performed and fecal occult was noted to be negative. On reevaluation the patient she is feeling better she would like to go home at this point time patient has no tenderness on repeat abdominal exam at 2342. Patient was advised to follow-up on the incidental findings which she was provided hardcopy of the CT results and was advised take them to her primary care physician. She is encouraged return with worsening symptoms or concerns. She is agreeable this plan as well as family at bedside all question concerns answered she was discharged home in stable condition. Lab Data Labs: Laboratory Results - last 24 hr 08/13/24 08/13/24 21:25 22:04 WBC 8.5 RBC 4.20 Hgb 12.5 Hct 35.9 L MCV 85.5 MCH 29.8 MCHC 34.8 RDW Std Deviation 38.3 RDW Coeff of Bernard 12.5 Plt Count 205 MPV 9.6 Immature Gran % (Auto) 0.200 Neut % (Auto) 80.5 H Lymph % (Auto) 13.9 L [place] % (Auto) 5.3 Eos % (Auto) 0.0 Baso % (Auto) 0.1 Absolute Neuts (auto) 6.8 Absolute Lymphs (auto) 1.18 Nucleated RBC % 0 Sodium 140 Potassium 3.5 Chloride 112 H Carbon Dioxide 20.0 L Anion Gap 9 BUN 23 H Creatinine 0.89 Estim Creat Clear Calc 46.85 Est GFR (MDRD) Af Amer 79 Est GFR (MDRD) Non-Af 65 BUN/Creatinine Ratio 25.7 H Glucose 100 Lactic Acid 1.6 Calcium 9.2 Total Bilirubin 0.40 AST 17 ALT 19 Alkaline Phosphatase 55 Total Protein 6.8 Albumin 3.4 Globulin 3.4 Albumin/Globulin Ratio 1.0 Lipase 156 H Urine Color Yellow Urine Clarity Clear Urine pH 6.0 Ur Specific [place] 1.015 Urine Protein 30 H Urine Glucose (UA) Normal Urine Ketones Negative Urine Occult Blood 10 H Urine Nitrite Negative Urine Bilirubin 1 H Urine Urobilinogen Normal Ur Leukocyte Esterase 500 H Urine RBC 0-5 SEEN Urine WBC 10-25 SEEN Ur Squamous Epith Cells 0-5 SEEN Urine Bacteria RARE Fine Granular Casts 0-5 SEEN Urine Mucus 1+ Radiography Diagnostic Testing: Clinical Impression(s) from Imaging Studies Abdomen/Pelvis CTA 08/13/24 22:18 IMPRESSION: 1. No evidence of abdominal aortic aneurysm or dissection. Atherosclerotic calcifications are present. No definite active hemorrhage is seen. 2. Wall thickening of the stomach which may relate to underdistention or gastritis. 3. Colonic diverticulosis without diverticulitis. 4. Right inguinal hernia which contains a short segment of small bowel without obstruction. 5. Grade 1 anterolisthesis of L4-L5 with uncovering of the disc/disc bulge as well as advanced facet arthropathy with resultant severe central canal stenosis. Additionally at L3-L4, there is a disc bulge with facet/flavum hypertrophy with severe central canal stenosis. Findings can be better assessed with MRI of the lumbar spine on an outpatient basis. 6. Additional findings as above. One or more dose reduction techniques were used (e.g., Automated exposure control, adjustment of the mA and/or kV according to patient size, use of iterative reconstruction technique). Reading Location: [place] Discharge Plan Triage Chief Complaint: Nausea/Vomiting/Diarrhea ED Provider: Seferino Rosa Dx/Rx/DC Orders Clinical Impression: Abdominal pain, Nausea & vomiting, Diarrhea, Hernia, inguinal, right Prescriptions: New ondansetron 4 mg tablet,disintegrating 4 mg PO Q6H PRN (Reason: nausea and vomiting) Qty: 20 0RF dicyclomine 20 mg tablet 20 mg PO TID Qty: 20 0RF No Action paroxetine HCl [Paxil] 40 mg tablet 40 mg PO DAILY amlodipine 10 mg tablet 10 mg PO DAILY omeprazole 40 mg capsule,delayed release(DR/EC) 40 mg PO DAILY Gemtesa 75 mg tablet 75 mg PO DAILY atorvastatin 10 mg tablet 10 mg PO QHS osteo biflex 1 tab PO DAILY multivitamin Tablet 1 tab PO DAILY vitamin E 200 unit capsule 200 unit PO DAILY cholecalciferol (vitamin D3) 50 mcg (2,000 unit) capsule 50 mcg PO DAILY Primary Care Provider: Hugo Ro Referrals: Hugo Ro MD [Primary Care Provider] - Activity Restrictions/Additional Instructions: Follow-up your primary care physician outpatient setting. Use prescriptions as prescribed. Return with worsening symptoms or any concerns. Print Language: Azeri Disposition Disposition: Home, Self Care
[2024-08-13 23:51] VITALS: BP 122/56; PULSE 81; RESP 16; TEMP 36.7; O2SAT 98
== END 2024-08-14 00:04 | disposition home or self-care (01) ==
PROVIDERS: Emergency Provider Emergency Medicine; PCP Internal Medicine; Visit Provider Emergency Medicine
DX: R10.9 Unspecified abdominal pain (principal); R11.2 Nausea with vomiting, unspecified; K40.90 Unilateral inguinal hernia, without obstruction or gangrene, not specified as recurrent; Z87.891 Personal history of nicotine dependence; M51.369 Other intervertebral disc degeneration, lumbar region without mention of lumbar back pain or lower extremity pain; R19.7 Diarrhea, unspecified; F41.9 Anxiety disorder, unspecified; E78.00 Pure hypercholesterolemia, unspecified; K57.30 Diverticulosis of large intestine without perforation or abscess without bleeding; K21.9 Gastro-esophageal reflux disease without esophagitis; I10 Essential (primary) hypertension; M48.061 Spinal stenosis, lumbar region without neurogenic claudication; R74.8 Abnormal levels of other serum enzymes; Z79.899 Other long term (current) drug therapy
CPT/HCPCS: 74174; 80053; 81001; 82274; 83605; 83690; 85025; 87086; 87088; 93005; 96361; 96374; 99284; Q9967; A4216; J2405

== ENCOUNTER → 2025-01-25 | Outpatient (CLI) | payer MEDICARE, MEDICAID, SELFPAY ==
--- NOTE | 2025-01-25 | EMB_PTH ---
PATIENT: EDUARDO ARITA LOC: [facility] U#:[id number] AGE/SX: 74/F ROOM: RE01/25/[address]: Dr. Kay Felton DO : 1950 BED: DIS: 01/25/2025 SPEC #: [id number] RECD: 01/25/25 12:28 STATUS: CROW MISSY #: [id number] OVIDIO: 01/25/25 00:[address]: Kay Felton DEPT: SURGICAL PATHOLOGY RECD BY: Hien Ambriz ENTERED: 01/25/25 14:52 SP TYPE: ENDOM BX/C VETO DR: Dr. Hugo Ro MD Tissues: Endometrium, NOS Procedures: Surgery Specimen Level IV HEADER OPERATION: Endometrial biopsy PRE-OP DIAGNOSIS: Postmenopausal bleeding, thickened endometrium TISSUE SUBMITTED: A- Endometrial tissue MICROSCOPIC DIAGNOSIS A. Endometrium, biopsy: - Scant superficial benign epithelium consistent with endometrial origin - see note. - Fragment of benign squamous cervical mucosa with mild acute inflammation. Note: Clinical correlation to assess the adequacy of this sampling is necessary. MICROSCOPIC DESCRIPTION Slides are reviewed. GROSS DESCRIPTION a. Received in fixative is one container labeled with the patient's name and designated Endometrial tissue. The specimen consists of scant mucoid-esparza fragments measuring 4 x 2 x 1cm. The entire specimen is submitted in one cassette. Wilfredo 01/25/2025 CPT:15951
== END | disposition home or self-care (01) ==
LOC: LABSPEC 11:27
PROVIDERS: PCP Internal Medicine; Referring Provider Obstetrics & Gynecology; Visit Provider Obstetrics & Gynecology
DX: N95.0 Postmenopausal bleeding (principal); R93.89 Abnormal findings on diagnostic imaging of other specified body structures
CPT/HCPCS: 88305

== ENCOUNTER 2025-02-20 06:42 | Day surgery (SDC) | payer MEDICARE, MEDICAID, SELFPAY ==
--- NOTE | 2025-02-15 14:54 | PAT.ANESEVAL ---
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 When Was Last Pacemaker Check QUESTION #4 FULL TEXT: You/Your Family Experience fever (hyperthermia) with Anesthesia Last Oral Intake Last Oral intake: Last Oral Intake NPO since Meds taken in AM with sips of water? 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 Female Yes 02/15/25 10:12 HX of Motion Sickness No 02/15/25 10:12 HX of N/V After Surgery No 02/15/25 10:12 Non-Smoker Yes 02/15/25 10:12 Duration of Surgery greater No 02/15/25 10:12 than 60 minutes Number of Risk Factors 2 02/15/25 10:12 PONV Score Moderate Risk 02/15/25 10:12 Height & Weight Height & Weight: Anesthesia: Height & Weight Height 4 ft 9 in 02/01/25 10:20 Respiratory Assessment Respiratory Assessment - draw bench operator: Respiratory Tract Infection Hx - draw bench operator Hx Respiratory Tract Infection No 02/15/25 10:12 STOP Sleep Apnea STOP Sleep Apnea - draw bench operator: STOP Sleep Apnea - draw bench operator Hx Hypertension Yes 02/15/25 10:12 Hx Sleep Apnea Yes 02/15/25 10:12 CPAP Yes: WAS NON COMPLIANT, 02/15/25 10:12 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 Has anyone observed you stop breathing during sleep? STOP Results Positive 02/15/25 10:12 QUESTION #5 FULL TEXT : Do you snore loudly (louder than talking or can be heard through closed doors)? 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 Specify any problems Hx of Preganancy in last 3 No 02/15/25 10:12 Months Nurse Filling Out Transfusion [facility] 02/15/25 10:12 & Questions: Date: 02/15/25 02/15/25 10:12 Time: 10:21 02/15/25 10:12 Patient unable to answer at this time (ie. confused, unrespo /Reproduction History /Reproductive History - draw bench operator: /Reproductive Hx- draw bench operator Hx Now No 02/15/25 10:12 Gestational Age (in weeks): EDC: Hx Hx Para Hx Section SAB No 02/15/25 10:12 [facility] Medical History Post-menopausal Marijuana use Back pain Generalized abdominal pain Genetic testing Status post hysteroscopy Wears glasses Depression Anxiety Arthritis Bladder disease High cholesterol Gastric reflux Shortness of breath on exertion Former smoker CPAP (continuous positive airway pressure) dependence Hypertension Home Medications ?Medication ?Instructions ?Recorded ?Last Taken ?Type amlodipine 10 mg tablet 10 mg PO DAILY 10/07/21 Unknown History paroxetine HCl 40 mg tablet (Paxil) 40 mg PO DAILY 10/07/21 Unknown History atorvastatin 10 mg tablet 10 mg PO QHS 10/08/21 Unknown History cholecalciferol (vitamin D3) 50 50 mcg PO DAILY 10/08/21 Unknown History mcg (2,000 unit) capsule multivitamin 1 tab PO DAILY 10/08/21 Unknown History omeprazole 40 mg capsule,delayed 40 mg PO DAILY 10/08/21 Unknown History release osteo biflex 1 tab PO DAILY 10/08/21 Unknown History vibegron 75 mg tablet (Gemtesa) 75 mg PO DAILY 10/08/21 Unknown History vitamin E 200 unit capsule 200 unit PO DAILY 10/08/21 Unknown History Allergy/AdvReac Type Severity Reaction Status Date / Time No Known Allergies Allergy Verified 02/15/25 10:10 Family History Mother Lung cancer Daughter Lung cancer Father Stomach cancer Surgical History S/P dilation and curettage (~10/14/21) History of Social History Smoking Status: Former smoker alcohol intake: current details: occasionally substance use type: does not use caffeine: Yes what type of physical activity do you participate in: none seatbelt use: always do you feel safe at home: Yes additional social history: Audit: Pertinent Findings Pertinent Findings EKG Perinent findings: August 13, 2024. Normal sinus rhythm. Nonspecific T wave abnormality. Recommendation Anesthesia Recommendation Anesthesia recommendation: OPTIMIZED for anesthesia
[2025-02-20] VITALS (8 sets, daily range): BP systolic 85–118; BP diastolic 61–106; PULSE 79–87; RESP 16–18; TEMP 36.2–36.5; O2SAT 98–100; BMI 31.4
--- OUTSIDE RECORDS SUMMARY | 2025-02-20 06:47 | XMS RPT_ITS | CCD ---
Author Organization [facility] Care Team Providers Care Oyster Washer Name Role Phone Dr. Hugo Ro Primary Care Provider Dr. Hugo Ro Referring Provider Dr. Kay Felton Attending Provider Bibiana Steele Attending Provider Unavailable Dr. Kay Felton Other Provider Dr. Kay Felton Referring Provider Jayjay MOLINA, Hugo Glover Primary Care Provider Jayjay MOLINA, Hugo Glover Primary Care Provider Jayjay MOLINA, Hugo Glover Primary Care Provider Jayjay MOLINA, Hugo Glover Primary Care Provider Yvonne REINFORCING METAL WORKER.Marivel RAMOS Unavailable HUGO RO Referring Unavailable HUGO RO Primary Care Unavailable THADDEUS SHAW Attending Unavailable MARIVEL DASH Referring Unavailable HUGO RO Primary Care Unavailable THADDEUS SHAW Attending Unavailable MARIVEL DASH Referring Unavailable HUGO RO Primary Care Unavailable HUGO RO Primary Care Unavailable MARIVEL DASH Attending Unavailable HUGO RO Primary Care Unavailable MARIVEL DASH Referring Unavailable JAYJAY, HUGO Glover Primary Care Unavailable HUGO RO Attending Unavailable HUGO RO Primary Care Unavailable HUGO RO Attending Unavailable HUGO RO Primary Care Unavailable FRANCINE CALLAWAY Referring Unavailable JAYJAY, HUGO Glover Primary Care Unavailable RO, ADALGISA Attending Unavailable RO, ADALGISA Primary Care Unavailable RO, ADALGISA Attending Unavailable RO, ADALGISA Primary Care Unavailable MARIVEL DASH Maria Referring Unavailable RO, ADALGISA Primary Care Unavailable RO, ADALGISA Primary Care Unavailable Jayjay MOLINA, Dr. Arias Primary Care Provider Jayjay MOLINA, Dr. Arias Referring Provider Shannon Cronin DO, Dr. Villanueva Attending Provider Jayjay MOLINA, Dr. Arias Primary Care Provider Tara MOLINA, Dr. Contreras Attending Provider Shannon Cronin DO, Dr. Villanueva Referring Provider Tara MOLINA, Dr. Contreras Attending Provider Rupali MOLINA, Dr. Spangler Attending Provider Jayjay, Hugo Primary Care Unavailable Robotham, Crys Attending Unavailable Robotham, Crys Referring Unavailable Vande Velde, Kay Attending Unavailabl e Ro, Hugo Primary Care Unavailable Vande Velde, Kay Referring Unavailabl e Ro, Hugo Primary Care Unavailable Vande Velde, Kay Referring Unavailabl e Vande Velde, Kay Attending Unavailabl e Ro, Hugo Primary Care Unavailable Vande Velde, Kay Attending Unavailabl e Vande Velde, Kay Referring Unavailabl e Vande Velde, Kay Attending Unavailabl e Ro, Hugo Primary Care Unavailable Vande Velde, Kay Referring Unavailabl e Ro, Hugo Primary Care Unavailable Seferino Rosa Attending Unavailable Ro, Hugo Primary Care Unavailable Robotham, Crys Attending Unavailable Vande Velde, Kay Attending Unavailabl e Ro, Hugo Primary Care Unavailable Ro, Hugo Referring Unavailable Ro, Hugo Primary Care Unavailable Robotham, Crys Attending Unavailable Vande Velde, Kay Referring Unavailabl e Ro, Hugo Primary Care Unavailable Ro, Hugo Referring Unavailable Vande Velde, Kay Attending Unavailabl e Ro, Hugo Primary Care Unavailable Kay Felton Attending Hugo Salinas Referring Unavailable Kay Felton Attending Hugo Salinas Primary Care Unavailable Hugo Ro Referring Unavailable Medications Current Medications Medication Drug Class(es) Dates Sig (Normalized) Sig (Original) amLODIPine 10 mg oral tablet (20 sources) Dihydropyridine Calcium Channel Roger Start: 10-07-2021 End: 01-18-2024 take 1 tablet by mouth once daily Amlodipine 10 mg tablet Active 10 mg PO DAILY October 07, 2021 12:00am Start: 04-29-2021 End: 12-27-2022 take 2 tablets by mouth once daily amLODIPine (NORVASC) 5 mg tablet Indications: Essential hypertension Take 2 tablets by mouth once daily. 180 tablet 3 01/08/2022 12/27/2022 Discontinued (Changing Therapy/Dosage Form) Start: 03-18-2020 End: 03-18-2021 take 1 tablet by mouth once daily amLODIPine (NORVASC) 2.5 mg tablet Indications: Essential hypertension Take 1 tablet by mouth once daily. 90 tablet 3 10/20/2020 03/18/2021 Discontinued Comment on above: Take 2 tablets by mo uth once daily. Take 1 tablet by luis th once daily. atorvastatin 10 mg oral tablet (20 sources) HMG-CoA Reductase Inhibitor Start: 11-16-19 End: 01-05-20 24 take 1 tablet by mouth at bedtime Atorvastatin 10 mg tablet Active 10 mg PO AT BEDTIME October 08, 2021 12:00am Comment on above: Take 1 tablet by luis th daily at bedtime. For cholesterol. calcium carbonate 1500 mg / cholecalciferol 200 unt oral tablet (20 sources) Vitamin D Start: 04-22-20 16 take 1 tablet by mouth twice daily calcium carbonate 600 mg-cholecalciferol 200 units (CALCIUM 600 + D,3,) 600 mg(1,500mg) -200 unit tab Indications: Osteoporosis Take 1 tablet by mouth twice daily. 0 04/22/2016 Active Comment on above: Take 1 tablet by luis th twice daily. cholecalciferol 0.05 mg oral capsule (20 sources) Vitamin D Start: 10-09-19 22 take 1 capsule by mouth once daily Cholecalciferol (Vitamin D3) 50 mcg (2,000 unit) capsule Active 50 ug PO DAILY October 08, 2021 12:00am Start: 08-15-2017 take 1 capsule by mo [facility] once daily Cholecalciferol, Vitamin D3, 1,000 unit cap Take 1 capsule by mouth once daily. 08/15/2017 Active Comment on above: Take 1 capsule by mo [facility] once daily. Chondroitin Sulfates / Glucosamine (9 sources) Start: 10-08-2021 take 1 tablet by mouth once daily osteo biflex Active 1 TABLET PO DAILY October 08, 2021 10:09am Start: 10-08-2021 osteo biflex A ctive 1 {tbl} PO DAILY 0 October 08, 2021 12:00am Start: 10-08-2021 take 1 tablet by mouth once da ayah osteo biflex Active 1 TABLET PO DAILY October 08, 2021 12:00am Multivitamin preparation (6 sources) Start: 10-08-2021 take 1 tablet by mouth once daily Multivitamin Active 1 TABLET PO DAILY October 08, 2021 10:10am Start: 10-08-2021 take 1 tablet by luis once daily Multivitamin Active 1 TABLET PO DAILY October 08, 2021 12:00am Multivitamin tablet (3 sources) Start: 10-08-2021 Multivitamin tablet Active 1 {tbl} PO DAILY October 08, 2021 12:00am omeprazole 40 mg delayed release oral capsule (20 sources) Proton Pump Inhibitor Start: 02-07-2020 End: 01-18-2024 take 1 capsule by mouth once daily Omeprazole 40 mg capsule,delayed release(DR/EC) Active 40 mg PO DAILY October 08, 2021 12:00am Comment on above: Take 1 capsule by [facility] once daily. PARoxetine hydrochloride 40 mg oral tablet (20 sources) Serotonin Reuptake Inhibitor Start: 04-08-2020 End: 01-18-2024 take 1 tablet by mouth once daily Paroxetine Hcl (Paxil) 40 mg tablet Active 40 mg PO DAILY October 07, 2021 12:00am Comment on above: Take 1 tablet by luis once daily. Vibegron (9 sources) Start: 10-08-2021 take 1 tablet by mouth once daily Vibegron (Gemtesa) 75 mg tablet Active 75 MG PO DAILY October 08, 2021 10:08am Start: 10-08-2021 take 1 tablet by luis th once daily Vibegron (Gemtesa) 75 mg tablet Active 75 mg PO DAILY October 08, 2021 12:00am Start: 10-08-2021 take 1 tablet by luis th once daily Vibegron (Gemtesa) 75 mg tablet Active 75 MG PO DAILY October 08, 2021 12:00am vibegron (GEMTESA) 75 mg tablet (20 sources) Start: 12-10-2021 take 1 tablet by mouth once daily vibegron (GEMTESA) 75 mg tablet Take 1 tablet by mouth once daily. 12/10/2021 Active Start: 12-10-2021 take 1 tablet by luis th once daily vibegron (GEMTESA) 75 mg tablet Take 1 tablet by mouth once daily. 0 12/10/2021 Active Comment on above: Take 1 tablet by luis th once daily. vitamin e 90 mg oral capsule (9 sources) Start: 10-08-2021 take 1 capsule by mouth once daily Vitamin E 200 unit capsule Active 200 U PO DAILY October 08, 2021 12:00am Completed/Discontinued Medications Medication Drug Class(es) Dates Sig (Normalized) Sig (Original) acetaminophen 325 mg / oxyCODONE hydrochloride 5 mg oral tablet (9 sources) Opioid Agonist Start: 10-14-2021 End: 12-04-2021 Oxycodone-Acetamino phen (Percocet) 5-325 mg tablet Discontinued 1 {tbl} PO Q4H as needed for pain 5 3 0 October 14, 2021 December 04, 2021 1:07pm Status post dilation and curettage Other specified postprocedural states alendronic acid 70 mg oral tablet (4 sources) Bisphosphonate Start: 03-18-2020 End: 12-10-2021 take 1 tablet by mouth every week alendronate (FOSAMAX) 70 mg tablet TAKE ONE TABLET BY MOUTH ONCE A WEEK, WITH A FULL GLASS OF WATER ON EMPTY STOMACH. DO NOT LIE DOWN FOR 30 MINUTES. 12 tablet 3 03/18/2020 12/10/2021 Discontinued Comment on above: TAKE ONE TABLET BY M OUTH ONCE A WEEK, WITH A FULL GLASS OF WATER ON EMPTY STOMACH. DO NOT LIE DOWN FOR 30 MINUTES. Blood Pressure Monitor kit (1 source) Start: 02-25-2019 End: 10-20-2020 Blood Pressure Monitor kit Indications: Elevated blood pressure reading , Essential hypertension Blood pressure monitor and regular size arm cuff. Use as directed to check blood pressure. Dx: R03.0, I.10 1 Kit 02/25/2019 10/20/2020 Discontinued diclofenac sodium 0.01 mg/mg topical gel (18 sources) Nonsteroidal Anti-inflammatory Drug Start: 03-18-2020 End: 11-24-2022 apply 2 g topically four times daily diclofenac sodium (VOLTAREN) 1 % topical gel Indications: Arthritis of midfoot Apply 2 g to affected area four times daily. Feet pain. 100 g 2 03/18/2020 11/24/2022 Discontinued (Course of therapy completed) Comment on above: Apply 2 g to affecte d area four times daily. Feet pain. dicyclomine hydrochloride 20 mg oral tablet (3 sources) Anticholinergic Start: 08-13-2024 End: 01-25-2025 take 1 tablet by mouth three times daily Dicyclomine 20 mg tablet Discontinued 20 mg PO THREE TIMES A DAY 20 0 August 13, 2024 1:00am January 25, 2025 9:03am ibuprofen 600 mg oral tablet (9 sources) Nonsteroidal Anti-inflammatory Drug Start: 10-14-2021 End: 12-04-2021 take 1 tablet by mouth every six hours as needed for pain Ibuprofen 600 mg tablet Discontinued 600 mg PO EVERY 6 HOURS as needed for pain 28 7 0 October 14, 2021 12:00am December 04, 2021 1:07pm one tab every 6 hrs as needed for mild to moderate pain Magnesium (18 sources) End: 11-24-2022 MAGNESIUM ORAL Take by mouth. 11/24/2022 Discontinued (Course of therapy completed) End: 11-24-2022 MAGNESIUM ORAL Take by mouth . 0 11/24/2022 Discontinued (Course of therapy completed) MAGNESIUM ORAL T dominick by mouth. 0 Active Comment on above: Take by mouth. medroxyPROGESTERone acetate 2.5 mg oral tablet (20 sources) Progestin Start: 01-02-2024 End: 08-16-2024 medroxyPROGESTERone (PROVERA ) 2.5 mg tablet Take 2.5 mg by mouth once daily. Take 1 tablet by mouth once daily for 21 days, take 7 days off 01/02/2024 08/16/2024 Discontinued Start: 05-24-2022 End: 12-27-2022 medroxyPROGESTERone (PROVERA , CYCRIN) 2.5 mg tablet Take 2.5 mg by mouth once daily. 21 days on, 7 days off, cyclical. Per gynecology. 05/24/2022 12/27/2022 Discontinued Start: 12-04-2021 End: 01-23-2024 Medroxyprogesterone (Provera ) 2.5 mg tablet Discontinued 2.5 mg PO DAILY January 02, 2024 3:16pm January 22, 2024 12:00am January 23, 2024 12:05am take 21 days on, 7 days off Comment on above: Take 1 tablet by luis th once daily. 21 days on, 7 days off, cyclical. Per gynecology. Take 2.5 mg by mouth once daily. 21 days on, 7 days off, cyclical. Per gynecology. meloxicam 15 mg oral tablet (1 source) Nonsteroidal Anti-inflammatory Drug Start: End: take 1 tablet by mouth once daily at mealtime for pain meloxicam (MOBIC) 15 mg tablet Indications: Chronic bilateral low back pain without sciatica , Primary osteoarthritis of right knee , Impingement syndrome of right shoulder Take 1 tablet by mouth once daily. With food for pain. 30 tablet 5 01/08/2019 10/20/2020 Discontinued naproxen 500 mg oral tablet (1 source) Nonsteroidal Anti-inflammatory Drug Start: End: take 1 tablet by mouth twice daily as needed for pain naproxen (NAPROSYN) 500 mg tablet Indications: Acute pain of left knee Take 1 tablet by mouth twice daily as needed for pain (pain/inflammation, take with food.). 30 tablet 02/03/2021 02/23/2021 Discontinued nortriptyline 10 mg oral capsule (20 sources) Tricyclic Antidepressant Start: take 20 mg by mouth at bedtime Nortriptyline Active 20 MG PO AT BEDTIME October 08, 2021 12:00am Start: 03-18-2020 End: 08-13-2024 take 1 capsule by mouth at bedtime Nortriptyline 10 mg capsule Discontinued 20 mg PO AT BEDTIME October 08, 2021 12:00am August 13, 2024 11:07pm Comment on above: Take 1-2 capsules by mouth daily at bedtime. ondansetron 4 mg disintegrating oral tablet (16 sources) Serotonin-3 Receptor Antagonist Start: 08-13-19 End: 01-26-20 take 1 tablet by mouth every six hours as needed for nausea and vomiting Ondansetron 4 mg tablet,disintegratin g Discontinued 4 mg PO EVERY 6 HOURS as needed for nausea and vomiting 20 0 August 13, 2024 1:00am January 25, 2025 9:04am Start: 04-19-2024 End: 08-16-2024 take 1 tablet by mouth every eight hours as needed for nausea ondansetron orally disintegrating (ZOFRAN ODT) 4 mg disintegrating tablet Indications: Nausea and vomiting, unspecified vomiting type Take 1 tablet by mouth every 8 hours as needed for nausea/vomiting. 20 tablet 08/16/2024 Active Problems Active Problems Problem Classification Problem Date Documented Da te Episodic/Chronic Abdominal hernia (10 sources) Right inguinal hernia ; Translations: [Unilateral inguinal hernia, without obstruction or gangrene, not specified as recurrent] Onset: 5 08-16-2024 Episodic Abdominal pain (5 sources) Epigastric pain; Translations: [Epigastric pain] Onset: 4 04-27-2024 Episodic Anxiety disorders (20 sources) Anxiety; Translations: [Anxiety disorder, unspecified] Onset: 5 Chronic Conditions associated with dizziness or vertigo (1 source) Dizziness; Translations: [Dizziness and giddiness] Episodic Disorders of lipid metabolism (20 sources) Hyperlipidemia; Translations: [Hyperlipidemia, unspecified] Onset: 9 Resolved: 6 Chronic Esophageal disorders (20 sources) Gastroesophageal reflux disease; Translations: [Gastro-esophageal reflux disease without esophagitis] Onset: 8 03-29-2018 Chronic Essential hypertension (20 sources) Hypertensive disorder; Translations: [Essential (primary) hypertension] Onset: 9 Chronic Gastroduodenal ulcer (except hemorrhage) (1 source) Gastric ulcer without hemorrhage AND without perforation; Translations: [Gastric ulcer, unspecified as acute or chronic, without hemorrhage or perforation] Chronic Genitourinary symptoms and ill-defined conditions (20 sources) Urge incontinence of urine; Translations: [Urge incontinence] Onset: 1 10-23-2020 Chronic Genitourinary symptoms and ill-defined conditions (14 sources) Urgent desire to urinate; Translations: [Urgency of urination] Episodic Immunizations and screening for infectious disease (1 source) Suspected disease caused by 2019-nCoV; Translations: [Suspected COVID-19 virus infection] Episodic Menopausal disorders (4 sources) Postmenopausal bleeding; Translations: [Postmenopausal bleeding] Onset: 5 08-03-2024 Chronic Mood disorders (20 sources) Depressive disorder; Translations: [Depression] Onset: 0 07-14-2009 Chronic Nonspecific chest pain (11 sources) Chest wall pain; Translations: [Other chest pain] Episodic Osteoporosis (15 sources) Osteoporosis; Translations: [Age-related osteoporosis without current pathological fracture] Onset: 6 04-22-2016 Chronic Other diseases of kidney and ureters (9 sources) Cyst of kidney; Translations: [Cyst of kidney, acquired] 10-13-2021 Episodic Comment on above: 6 cm cyst on right l ower pole of kidney Other female genital disorders (7 sources) Polyp of cervix; Translations: [Polyp of cervix uteri] 12-04-2021 Episodic Other gastrointestinal disorders (4 sources) Diarrhea; Translations: [Diarrhea, unspecified] 08-13-2024 Episodic Other injuries and conditions due to external causes (20 sources) Injury of left knee; Translations: [Unspecified injury of left lower leg, initial encounter] Onset: 0 Resolved: 1 10-21-2020 Episodic Other injuries and conditions due to external causes (1 source) Unspecified injury of left lower leg, initial encounter; Translations: [Injury of left knee, initial encounter] Onset: 5 Episodic Other lower respiratory disease (2 sources) Rib pain; Translations: [Pleurodynia] 10-10-2023 Episodic Other lower respiratory disease (1 source) Dyspnea; Translations: [Dyspnea, unspecified] 04-27-2024 Episodic Other non-traumatic joint disorders (9 sources) Pain in left knee; Translations: [Pain in joint, lower leg] Onset: 5 02-03-2021 Episodic Other nutritional; endocrine; and metabolic disorders (20 sources) Obese class I; Translations: [Obesity, unspecified] Onset: 2 Chronic Other screening for suspected conditions (not mental disorders or infectious disease) (17 sources) Endometrium thickened; Translations: [Abnormal findings on diagnostic imaging of other specified body structures] Onset: 5 Chronic Other screening for suspected conditions (not mental disorders or infectious disease) (20 sources) Patient encounter status; Translations: [Encounter for screening mammogram for malignant neoplasm of breast] Onset: 2 Resolved: 4 Episodic Comment on above: Empower negative Other upper respiratory infections (1 source) Acute upper respiratory infection; Translations: [Acute upper respiratory infection, unspecified] Episodic Residual codes; unclassified (20 sources) Obstructive sleep apnea syndrome; Translations: [Obstructive sleep apnea (adult) (pediatric)] Onset: 0 10-07-2016 Chronic Residual codes; unclassified (1 source) Insomnia; Translations: [Insomnia, unspecified] Episodic Unclassified (3 sources) Encounter for screening for malignant neoplasm of colon Unclassified (6 sources) Z12.11 - Encounter for screening for malignant neoplasm of colon Past or Other Problems Problem Classification Problem Date Documented Da te Episodic/Chronic Fluid and electrolyte disorders (2 sources) Dehydration; Translations: [Dehydration] Onset: 04-27-2024 04-27-2024 Episodic Nausea and vomiting (12 sources) Nausea; Translations: [Nausea] Onset: 04-19-2024 04-19-2024 Episodic Osteoarthritis (20 sources) Osteoarthritis of right knee joint; Translations: [Unilateral primary osteoarthritis, right knee] Onset: 07-28-2015 Resolved: 01-18-2024 07-28-2015 Chronic Other and unspecified benign neoplasm (20 sources) Tubular adenoma ; Translations: [Benign neoplasm, unspecified site] Onset: 02-25-2012 02-25-2012 Episodic Other bone disease and musculoskeletal deformities (20 sources) Osteopenia; Translations: [Other specified disorders of bone density and structure, unspecified site] Onset: 04-22-2016 11-24-2022 Episodic Other bone disease and musculoskeletal deformities (19 sources) Exostosis; Translations: [Other specified disorders of bone, unspecified site] Onset: 01-18-2008 Resolved: 04-28-2015 04-28-2015 Episodic Other circulatory disease (19 sources) Elevated blood-pressure reading without diagnosis of hypertension; Translations: [Elevated blood-pressure reading, without diagnosis of hypertension] Onset: 01-10-2008 Resolved: 04-09-2016 04-09-2016 Episodic Other connective tissue disease (20 sources) Impingement syndrome of right shoulder region; Translations: [Impingement syndrome of right shoulder] Onset: 08-10-2017 08-10-2017 Episodic Other connective tissue disease (20 sources) Impingement syndrome of left shoulder region; Translations: [Impingement syndrome of left shoulder] Onset: 2021 Episodic Other connective tissue disease (19 sources) Neuropathy; Translations: [Neuralgia, neuritis, and radiculitis, unspecified] Onset: 01-18-2008 Resolved: 04-28-2015 04-28-2015 Episodic Other connective tissue disease (19 sources) Enthesopathy; Translations: [Enthesopathy, unspecified] Onset: 06-29-2011 Resolved: 12-01-2015 12-01-2015 Episodic Other connective tissue disease (19 sources) Pain in limb; Translations: [Pain in unspecified limb] Onset: 07-16-2011 Resolved: 12-01-2015 12-01-2015 Episodic Other female genital disorders (1 source) Polyp of cervix uteri; Translations: [Polyp of cervix uteri] Onset: 05-07-2024 Episodic Other lower respiratory disease (1 source) Dyspnea, unspecified; Translations: [Dyspnea, unspecified type] Onset: 04-27-2024 Episodic Other non-traumatic joint disorders (19 sources) Pain in right knee; Translations: [Pain in joint, lower leg] Onset: 07-28-2015 Resolved: 08-10-2017 08-10-2017 Episodic Other nutritional; endocrine; and metabolic disorders (20 sources) Obese class II; Translations: [Obesity, unspecified] Onset: 03-29-2018 Resolved: 05-24-2022 03-29-2018 Chronic Residual codes; unclassified (19 sources) Sleep apnea; Translations: [Sleep apnea, unspecified] Onset: 01-14-2009 Resolved: 04-28-2015 04-28-2015 Chronic Residual codes; unclassified (1 source) Personal history of other complications of , childbirth and the puerperium; Translations: [Personal history of other complications of , childbirth and the puerperium] Onset: 05-07-2024 Episodic Spondylosis; intervertebral disc disorders; other back problems (20 sources) Low back pain; Translations: [Lumbago] Onset: 04-16-2011 Resolved: 01-18-2024 08-10-2017 Episodic Unclassified (2 sources) Acute pain of left knee 09-10-2024 Unclassified (2 sources) Injury of left knee 09-10-2024 Results Test Name Value Interpretation Reference Range Facility MR/PAT.[facility] 02-15-2025 MR/PAT.[facility] Medical Records Department [address] [place] [address] PAT - Anesthesia 02/15/25 1454 MR#: [id number] Acct: [id number] Name: NATALI MONDRAGON Rep #: [id number] : 1950 74 From: Michael Whitten MD PCP: Dr. Hugo Ro MD Status:PRE [facility] Y Race: C Location: [facility] Pre-Assessment Diagnosis/Proposed Procedure Planned Operative Procedure(s): COLONOSCOPY Anesthesia History Anesthesia History - regional clinical director: Anesthesia History - regional clinical director Hx Hospitalization No 02/15/25 10:12 Any Problems With Anesthesia No 02/15/25 10:12 Cholinesterase deficiency No 02/15/25 10:12 You/Your Family Experience No 02/15/25 10:12 fever (hyperthermia) with Relationship Recent Exposure to Contagious No 10/14/21 11:36 Disease Does patient have nerve No 02/15/25 10:12 stimulator Patient instructed to have device shut off --Does patient have Pacemaker or ICD? When Was Last Pacemaker Check QUESTION #4 FULL TEXT: You/Your Family Experience fever (hyperthermia) with Anesthesia Last Oral Intake Last Oral intake: Last Oral Intake NPO since Meds taken in AM with sips of water? Meds patient instructed to take am of surgery PONV PONV - regional clinical director: PONV - regional clinical director Female Yes 02/15/25 10:12 HX of Motion Sickness No 02/15/25 10:12 HX of N/V After Surgery No 02/15/25 10:12 Non-Smoker Yes 02/15/25 10:12 Duration of Surgery greater No 02/15/25 10:12 than 60 minutes Number of Risk Factors 2 02/15/25 10:12 PONV Score Moderate Risk 02/15/25 10:12 Height Weight Height Weight: Anesthesia: Height Weight Height 4 ft 9 in 02/01/25 10:20 Respiratory Assessment Respiratory Assessment - regional clinical director: Respiratory Tract Infection Hx - regional clinical director Hx Respiratory Tract Infection No 02/15/25 10:12 STOP Sleep Apnea STOP Sleep Apnea - regional clinical director: STOP Sleep Apnea - regional clinical director Hx Hypertension Yes 02/15/25 10:12 Hx Sleep Apnea Yes 02/15/25 10:12 CPAP Yes: WAS NON COMPLIANT, 02/15/25 10:12 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 Has anyone observed you stop breathing during sleep? STOP Results Positive 02/15/25 10:12 QUESTION #5 FULL TEXT : Do you snore loudly (louder than talking or can be heard through closed doors)? Tobacco Use History Tobacco Use History - regional clinical director: Tobacco Use History - regional clinical director Tobacco Use Smoking Status Former smoker 02/15/25 10:12 Hx Tobacco Use No 02/15/25 10:12 Years Smoking Packs Smoked per Day Smoking Cessation Date was No - quit smoking greater 02/15/25 10:12 within the last 15 years than 15 years ago Hx Smoking Cessation Date 07/11/99 02/15/25 10:12 Hx Smoking Cessation No 02/15/25 10:12 Counseling Hematologic Medial History Hematologic Hx - regional clinical director: Hematologic Medical Hx - document review attorney Hx of Blood Transfusion No 02/15/25 10:12 Hx of Transfusion in last 3 No 02/15/25 10:12 Months Date of Last Transfusion (if within last 3 months) Ever experience any problems No 02/15/25 10:12 with transfusion(s)? Specify any problems Hx of Preganancy in last 3 No 02/15/25 10:12 Months Nurse Filling Out Transfusion [facility] 02/15/25 10:12 Questions: Date: 02/15/25 02/15/25 10:12 Time: 10:21 02/15/25 10:12 Patient unable to answer at this time (ie. 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 clinical director: /Reproductive Hx- regional clinical director Hx Now No 02/15/25 10:12 Gestational Age (in weeks): EDC: Hx Hx Para Hx Section SAB No 02/15/25 10:12 PFS Medical History Post-menopausal Marijuana use Back pain Generalized abdominal pain Genetic testing Status post hysteroscopy Wears glasses Depression Anxiety Arthritis Bladder disease High cholesterol Gastric reflux Shortness of breath on exertion Former smoker CPAP (continuous positive airway pressure) dependence Hypertension Home Medications ???Medication ???Instructions ???Recorded ???Last Taken ???Type amlodipine 10 mg tablet 10 mg PO DAILY 10/07/21 Unknown Hi story paroxetine HCl 40 mg tablet (Paxil) 40 mg PO DAILY 10/07/21 Unknown History atorvastatin 10 mg tablet 10 mg PO QHS 10/08/21 Unknown Hist ory cholecalciferol (vitamin D3) 50 50 mcg PO DAILY 10/08/21 Unknown H istory mcg (2,000 unit) capsule multivitamin 1 tab PO DAILY (more content not included)... Normal [facility] Surgery Visit Reporton 02-01 Surgery Visit Report [facility] [address] [place] [address] [address] [place] [address] OFFICE VISIT Date of Service: 02/01/25 MR#: [id number] Acct: [id number] Name: NATALI MONDRAGON Rep #: [id number] : 1950 Provider: Dr. Crys foreman MD Age/Sex: 74/F Location: [facility] Status: Signed Intake Vital Signs 01/25/25 09:01 02/01/25 10:20 Height 4 ft 9 in 4 ft 9 in Weight: 148 lb 4 oz 149 lb BMI 32.1 32.2 BP 127/81 H 130/56 H Blood Pressure Location Rt brachial Position Sitting Respiration 16 Intake Visit Reasons: COLONOSCOPY Chief Complaint: c-scope Supervisor Ditching Required: No Is patient in pain?: Yes (generalized abd pain) Allergies No Known Allergies Allergy (Verified 02/01/25 10:21) Medications ???Medication ???Instructions ???Recorded ???Confirmed ???Type amlodipine 10 mg tablet 10 mg PO DAILY 10/07/21 02/01/25 H istory paroxetine HCl 40 mg tablet (Paxil) 40 mg PO DAILY 10/07/21 5 History atorvastatin 10 mg tablet 10 mg PO QHS 10/08/21 02/01/25 His tory cholecalciferol (vitamin D3) 50 50 mcg PO DAILY 10/08/21 02/01/25 History mcg (2,000 unit) capsule multivitamin 1 tab PO DAILY 10/08/21 02/01/25 H istory omeprazole 40 mg capsule,delayed 40 mg PO DAILY 10/08/21 02/01/25 H istory release osteo biflex 1 tab PO DAILY 10/08/21 02/01/25 H istory vibegron 75 mg tablet (Gemtesa) 75 mg PO DAILY 10/08/21 02/01/25 H istory vitamin E 200 unit capsule 200 unit PO DAILY 10/08/21 5 History Have you fallen in the past year?: No PFSH Medical History (Updated 02/02/25 @ 11:[address] Crys Zapien MD) Generalized abdominal pain Genetic testing Status post hysteroscopy Wears glasses Depression Anxiety Arthritis Bladder disease High cholesterol Gastric reflux Shortness of breath on exertion Former smoker CPAP (continuous positive airway pressure) dependence Hypertension Surgical History S/P dilation and curettage ( 10/14/21) History of Family History Mother Lung cancer Daughter Lung cancer Father Stomach cancer Social History Smoking Status: Former smoker alcohol intake: current details: occasionally substance use type: does not use caffeine: Yes what type of physical activity do you participate in: none seatbelt use: always do you feel safe at home: Yes additional social history: HPI HPI HPI: 74-year-old female presents for colonoscopy due to a positive fecal occult blood also abnormal CT scan which showed a right inguinal hernia. Patient had a previous x 2 and does complain o f pain in the lower aspect of the scar on occasion. Patient was unaware that there is hernia at that location. Patient's last colonoscopy was at [facility] had a polyp at that time patient is unsure exactly the timing of the colonoscopy. Patient states her stools are dark brown does occasionally have some constipation issues but has bowel movements daily does not see any blood. Patient denies any abdominal pain or nausea or vomiting. Patient had CT abdomen pelvis when she went to the ER showed a right renal hernia which has been there in previous CTs upon my read. Next about 3 cm in size. ROS General General: No weight change, appetite, fatigue, colon cancer or breast cancer HEENT HEENT: No difficulty swallowing, eye injury, eye surgery, swollen glands or hoarseness Endo Endocrine: No thyroid disease, diabetes mellitus, thyroid cancer, Hair loss, heat intolerance or cold intolerance Skin Skin: Yes changing moles; No rash Musc Musculoskeletal: Yes back problems and arthritis; No rheumatoid arthritis, gout or joint pain Cardio Cardiovascular: No murmur, pacemaker, heart disease, atrial fibrillation, high blood pressure, heart attack, heart stent, palpitations, shortness of breath with exertion or chest pain Psych Psychiatric: No depression, anxiety or hearing voices Resp Respiratory: No shortness of breath, Yes sleep apnea, No cough, No COPD, No asthma, No emphysema and No wheezing Gastro Gastrointestinal: No abdominal pain, No nausea or vomiting, No diarrhea, Yes constipation, No blood in stool, No acid reflux, No hemorrhoids, Yes ulcers, No gallbladder problem and No black,tarry stools Chay Hematologic: No blood thinners, No blood disorders, No bleeding, No anemia and No blood clots Neuro Neurologic: No numbness and No tingling Exam Const General: cooperative, healthy appearing, comfortable and no acute distress [facility] Head: normocephalic and atraumatic Neck Neck: supple Resp Effort Inspection: normal respiratory effort Cardio (more content not included)... Normal [facility] Teenage Babysitter Office Visit Reporton 01-25-2025 Teenage Babysitter Office Visit Report [facility] [address], [address] [place] [address] OFFICE VISIT Date of Service: 01/25/25 MR#: [id number] Acct: [id number] Name: NATALI MONDRAGON Rep #: [id number] : 1950 Provider: Dr. 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) Chief Complaint: Annual Supervisor Ditching Required: No Is patient in pain?: No Allergies No Known Allergies Allergy (Verified 01/25/25 09:02) Medications ???Medication ???Instructions ???Recorded ???Confirmed ???Type amlodipine 10 mg tablet 10 mg PO DAILY 10/07/21 01/25/25 H istory paroxetine HCl 40 mg tablet (Paxil) 40 mg PO DAILY 10/07/21 5 History atorvastatin 10 mg tablet 10 mg PO QHS 10/08/21 01/25/25 His tory cholecalciferol (vitamin D3) 50 50 mcg PO DAILY 10/08/21 01/25/25 History mcg (2,000 unit) capsule multivitamin 1 tab PO DAILY 10/08/21 01/25/25 H istory omeprazole 40 mg capsule,delayed 40 mg PO DAILY 10/08/21 01/25/25 H istory release osteo biflex 1 tab PO DAILY 10/08/21 01/25/25 H istory vibegron 75 mg tablet (Gemtesa) 75 mg PO DAILY 10/08/21 01/25/25 H istory vitamin E 200 unit capsule 200 unit PO DAILY 10/08/21 5 History Is last menstrual period known: No Post menopausal: Yes Patient : No : No PFSH Medical History Genetic testing Status post hysteroscopy Wears glasses Depression Anxiety Arthritis Bladder disease High cholesterol Gastric reflux Shortness of breath on exertion Former smoker CPAP (continuous positive airway pressure) dependence Hypertension Surgical History S/P dilation and curettage ( 10/14/21) History of Family History Mother Lung cancer Daughter Lung cancer Father Stomach cancer Social History Smoking Status: Former smoker alcohol intake: current details: occasionally substance use type: does not use caffeine: Yes what type of physical activity do you participate in: none seatbelt use: always do you feel safe at home: Yes additional social history: History 3 Elective abortions Hx Para 3 Spontaneous abortions Hx # Term Pregnancies Ectopic pregnancies Hx # Pregnancies Multiple births # of living children HPI Encounter for routine gynecological examination Details: NATALI MONDRAGON is a 74 year old who presents for annual exam and EMB for thickened endometrium. 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 Last PAP: No longer indicated History of abnormal PAP: [] Last mammogram: 06/08/2024 History of abnormal mammogram: No Colon cancer screening: Will place referral to General Surgery for colonoscopy Other preventative health care screenings: PCP Dr Yeung Female Reproductive History Questions: metorrhagia: No, sexually active: Yes, dyspareunia: No and PCB: No Menopausal Symptoms: No hot flashes, No night sweats, No weight change, No mood changes, No difficulty concentrating, No sleep problems and No change in libido ROS Const Constitutional: Reports as per HPI; Denies fatigue, increased appetite, poor appetite, night sweats, weight gain or weight loss Cardio Card: Denies chest pain Resp Resp: Denies cough or dyspnea GI GI: Reports as per HPI; Denies abdominal pain, bloating, constipation, nausea or vomiting : Reports as per HPI and other; Denies difficulty voiding, dysuria, hematuria, hot flashes, nipple discharge, pelvic pain, prolapse symptoms, urinary frequency, urinary incontinence, urinary urgency, vaginal discharge, vaginal dryness, vaginal odor or vaginal pruritus Skin Skin/Breast: Denies changing lesions, breast mass, breast pain, breast skin changes or nipple discharge Psych Psych: Denies anxiety, change in libido, depression or difficulty concentrating Exam Const General: cooperative, healthy appearing, comfortable, no acute distress, well developed and well groomed HENMT Head: normal to inspection and normocephalic Ears: hearing grossly normal bilaterally and external ears normal Nose: external nose normal Face and sinus: normal facial exam Neck Neck: normal visual inspection, full ROM and no lymphadenopathy Thyroid: thyroid normal Chest Chest palpation inspection: normal inspection of the chest Breast inspection: normal inspection of the breasts and normal inspection of the axillae (more content not included)... Normal [facility] Surgery Specimen Level [place] 01-25-2025 Surgery Specimen Level IV Patient Age/Sex Location Account Attending Physician [facility]AGON 74[facility] [id number] Jonna Ramos Specimen: [id number] Received: 01/25/25 Status: CROW Gonzalez Num: [id number] Spec Type: ENDOM BX/C Kallie Dr: Dr. Kay Felton DO HEADER OPERATION: Endometrial biopsy PRE-OP DIAGNOSIS: Postmenopausal bleeding, thickened endometrium TISSUE SUBMITTED: A- Endometrial tissue MICROSCOPIC DIAGNOSIS A. Endometrium, biopsy: - Scant superficial benign epithelium consistent with endometrial origin - see note. - Fragment of benign squamous cervical mucosa with mild acute inflammation. Note: Clinical correlation to assess the adequacy of this sampling is necessary. MICROSCOPIC DESCRIPTION Slides are reviewed. GROSS DESCRIPTION a. Received in fixative is one container labeled with the patient's name and designated Endometrial tissue. The specimen consists of scant mucoid-esparza fragments measuring 4 x 2 x 1cm. The entire specimen is submitted in one cassette. Wilfredo 01/25/2025 CPT:24815 Patient Age/Sex Location Account Attending Physician NATAL[facility]DRAGON 74[facility] [id number] Jonna Ramos Signed (signature on file) Dr. Jaqueline Veras MD 01/30/25 7937 Normal [facility] Comment on above: Performed By: #### P SUIV #### [facility] [address] [place], [address] CNTHERAPYon 10-26-2024 CNTHERAPY OT/PT/Speech Visit (PTWS) NATALI MONDRAGON ([id number]) 1950 F Date Time Provider Department 10/26/24 11:00 AM THADDEUS SHAW PTMARCO ANTONIO Date Time Provider Department [place] 10/26/2024 11:00 AM [id number], COREY PTMARCO ANTON[facility] Reason for Visit: PT Discharge [752] Primary Visit Diagnosis:Acute pain of left knee [M25.562] Allergies As of Date: 10/26/2024 (No Known Allergies) Date Reviewed: 09/10/2024 Reviewed by: Marivel Dash, REINFORCING METAL WORKER.YARN HAULER - Fully Assessed Prescriptions as of 10/26/2024 - ondansetron orally disintegrating (ZOFRAN ODT) 4 mg disintegrating tablet Take 1 tablet by mouth every 8 hours as needed for nausea/vomiting. - amLODIPine (NORVASC) 10 mg tablet Take 1 tablet by mouth once daily. - omeprazole (PRILOSEC) 40 mg capsule Take 1 capsule by mouth once daily. - PARoxetine (PAXIL) 40 mg tablet Take 1 tablet by mouth once daily. - atorvastatin (LIPITOR) 10 mg tablet Take 1 tablet by mouth daily at bedtime. For cholesterol. - vibegron (GEMTESA) 75 mg tablet Take 1 tablet by mouth once daily. - Cholecalciferol, Vitamin D3, 1,000 unit cap Take 1 capsule by mouth once daily. - calcium carbonate 600 mg-cholecalciferol 200 units (CALCIUM 600 + D,3,) 600 mg(1,500mg) -200 unit tab Take 1 tablet by mouth twice daily. Meds Comments as of 08/18/2011: Normal [facility] CNTHERAPYon 09-27-2024 CNTHERAPY OT/PT/Speech Visit (PTWS) NATALI MONDRAGON ([id number]) 1950 F Date Time Provider Department 09/27/24 2:00 PM THADDEUS SHAW PTWS Date Time Provider Department Center 09/27/2024 2:00 PM [id number], COREY PTWS Cecy Welsh Reason for Visit: PT Eval [747] Visit Diagnoses:Acute pain of left knee [M25.562] Injury of left knee, initial encounter [S89.92XA] Allergies As of Date: 09/27/2024 (No Known Allergies) Date Reviewed: 09/10/2024 Reviewed by: Marivel Dash, REINFORCING METAL WORKER.YARN HAULER - Fully Assessed Prescriptions as of 09/27/2024 - ondansetron orally disintegrating (ZOFRAN ODT) 4 mg disintegrating tablet Take 1 tablet by mouth every 8 hours as needed for nausea/vomiting. - amLODIPine (NORVASC) 10 mg tablet Take 1 tablet by mouth once daily. - omeprazole (PRILOSEC) 40 mg capsule Take 1 capsule by mouth once daily. - PARoxetine (PAXIL) 40 mg tablet Take 1 tablet by mouth once daily. - atorvastatin (LIPITOR) 10 mg tablet Take 1 tablet by mouth daily at bedtime. For cholesterol. - vibegron (GEMTESA) 75 mg tablet Take 1 tablet by mouth once daily. - Cholecalciferol, Vitamin D3, 1,000 unit cap Take 1 capsule by mouth once daily. - calcium carbonate 600 mg-cholecalciferol 200 units (CALCIUM 600 + D,3,) 600 mg(1,500mg) -200 unit tab Take 1 tablet by mouth twice daily. Meds Comments as of 08/18/2011: Normal [facility] Bacteria Ur Culton Bacteria identified Cx Nom (U) ORGANISM ID: 1 50,000-<100,000 CFU/ml Normal urogenital tyrell Normal [facility] Comment on above: Performed By: #### 6 30-4 ####[facility] LABCLIA [id number] [address] CNOVon 09-10-2024 CNOV Office Visit (INTMWS ) NATALI MONDRAGON ([id number]) 1950 F Date Time Provider Department 09/10/24 12:40 PM MARIVEL DASH INTMWS During your visit today, we recorded the following information about you: Pulse Respiration Blood pressure Weight 84/minute 12/minute 132/80 66.7 kg Height 1.43 m Marivel Dash, REINFORCING METAL WORKER.YARN HAULER 09/10/2024 1:13 PM Signed Natali Mondragon is a 73 year old female here for a Medicare wellness visit. Medicare Health Risk Assessment General Health Very good Exercise: Minutes/Day 10 min Exercise: Days/Week 5 days Alcohol: Daily Use Never Alcohol: Drinks/Day Patient does not drink Alcohol: 6 or more drinks Never Feel off balance No Concerns: Teeth/Dentures No Concerns: Sexual function Decline Troubled by feelings None of the above Frequency: Eating healthy diet More than half the days ADLs requiring help None of the above Safety precautions in home/vehicle Yes Smoke, vape, chews tobacco No Difficulty hearing No Difficulty seeing No Current Providers Specialists: I have reviewed specialist-related care of the patient in the medical record. Current care team: Patient Care Team: Hugo Ro MD as PCP - General (Internal Medicine) Marivel Dash APRN.RICHARD as Electronic Plotting System Operator (Internal Medicine) Diane Pacheco, gynecology urology. [facility]: Dr. Arriaga. [facility] Dermatology. Optometry in [place]. Medical/Family history review Reviewed and updated problem list, medical/surgical/family /social history, medications, and allergies. Opioid use review Opioid Medications (last 90 days) No data to display Anxiety/Depression screening Recommendation: no further intervention at this time Cognitive screening Mini Cog Score: 4 Cognitive screening reviewed and No further action needed (score 3-5). Functional Observation Was the patient's Timed Up AND Go test unsteady or >= 12 seconds? No Advance Care Planning Patient was not able to provide a surrogate decision maker or written advance directives Measurements BP 132/80 Pulse 84 Resp 12 Ht 143 cm (4' 8.3) Wt 66.7 kg (147 lb 0.8 oz) SpO2 96% BMI 32.62 kg/m? Vision Screening: Follows with optometry/ophthalmology Assessment/Plan Medicare annual wellness visit, subsequent (Z00.00) - Counseled on healthy diet and regular exercise - Fall avoidance information provided - Personalized prevention plan provided - Discussed need for and benefit of weight loss. BMI 32.62 kg/(m2) Additional Concerns The following concerns were also discussed with the patient: Possible UTI: Urinary frequency for weeks Denies: burning, hematuria, pressure, fever, chills, abdominal pain, and hesitancy Treatments: nothing She slipped on ice and landed on her left knee about one week ago. She did not seek medical attention. She was able to walk but very painful. Initially the knee was swollen but this has mostly resolved. No bruising or redness. Pain is located: over the kneecap. Described as: aching Aggravated by: walking, going up stairs, and going down stairs Treatment: ice Popping or clicking with movement: No Locking or feel like is giving-out: No Interfering with sleep:No Previous injury: No Previous surgery: No HTN-Medication changes:No Taking all medications as prescribed: Yes Side effects: No Home BP's: Yes 120's/70's on average Denies: headache, chest pain, palpitations, dyspnea, and peripheral edema. Last 3 Encounter BP Readings: Date: BP: 09/10/2024 132/80 08/16/2024 118/62 08/13/2024 120/76 Anxiety/depression: Patient is currently taking Paxil Feels medication is working well: yes Persistent/bothersome symptoms: none Side effects: None BP 132/80 Pulse 84 Resp 12 Ht 143 cm (4' 8.3) Wt 66.7 kg (147 lb 0.8 oz) SpO2 96% BMI 32.62 kg/m? Physical Exam Vitals reviewed. Constitutional: Appearance: Normal appearance. Cardiovascular: Rate and Rhythm: Normal rate and regular rhythm. Heart sounds: Normal heart sounds. No murmur heard. Pulmonary: Effort: Pulmonary effort is normal. Breath sounds: Normal breath sounds. No wheezing, rhonchi or rales. Abdominal: Palpations: Abdomen is soft. Tenderness: There is no abdominal tenderness. There is no right CVA tenderness or left CVA tenderness. Musculoskeletal: Right knee: Normal. Left knee: No swelling, deformity, erythema, ecchymosis or crepitus. Normal range of motion. Tenderness present over the medial joint line. Normal alignment, normal meniscus and normal patellar mobility. Neurological: Mental Status: She is alert. Psychiatric: Mood and Affect: Mood normal. ASSESSMENT/PLAN: 1. Medicare annual wellness visit, subsequent - ICD9: V70.0, ICD10: Z00.00 (primary diagnosis) See medicare wellness plan 2. Urinary frequency - ICD9: 788.41, ICD10: R35.0 Chronic, (more content not included)... Normal [facility] UA DIP, URINE (POC)on 2024 BILIRUBIN UA (POCT) Negative Negative [facility] CLARITY UA (POCT) Clear [facility] COLOR UA (POCT) Yellow [facility] GLUCOSE UA (POCT) Negative Negative mg/dL [facility] Hemoglobin Ql (U) Negative Negative [facility] Interpretation and review of laboratory results Abnormal [facility] KETONE UA (POCT) Negative Negative mg/dL [facility] LEUKOCYTES UA (POCT) Trace Abnormal Negative [facility] NITRITE UA (POCT) Negative Negative [facility] PH UA (POCT) 6 4.5 - 8.0 [facility] Protein Ql (U) Negative Negative mg/dL [facility] SPECIFIC GRAVITY UA (POCT) 1.025 1.005 - 1.030 [facility] UROBILINOGEN UA (POCT) 0.2 Nelly l E.U./dL [facility] Location:[facility], [address] [place] [address], [place], [place], [id number] [place] [address] POINT OF CARE [facility] XR KNEE 4V AP/PA BOTH+LAT/ME R LTon 09-10-2024 XR KNEE 4V AP/PA BOTH+LAT/ALYSA LT * * *Final Report* * * DATE OF EXAM: Sep 10 2024 1:29PM WOX 5202 - XR KNEE 4V AP/PA BOTH+LAT/ALYSA LT / PROCEDURE REASON: multiple diagnoses * * * * Physician Interpretation * * * * EXAMINATION: XR KNEE 4V AP/PA BOTH+LAT/ALYSA LT HISTORY: fell on ice Tuesday pain anterior left knee ,allot of swelling has gone down and gets sharp pains with certain movements Acute pain of left knee Injury of left knee, initial encounter . TECHNIQUE: XR KNEE 4V AP/PA BOTH+LAT/ALYSA LT Laterality: LEFT Number of different views (projections): 4 M: XB_1 COMPARISON: 02/03/2021 RESULT: Severe narrowing of the medial compartments bilaterally greater on the right. Advanced patellofemoral compartment osteoarthritis bilaterally. Mild lateral compartment degenerative changes. No significant left knee joint effusion. No acute fracture or dislocation. There are no bony erosions. IMPRESSION: Advanced left knee degenerative change. Rn Urology: PSCB Transcribe Date/Time: Sep 13 2024 6:14P Dictated by : JACOB GILMORE MD This examination was interpreted and the report reviewed and electronically signed by: JACOB GILMORE MD on Sep 13 2024 6:15PM EST [id number] Normal [facility] CNOVon 08-16-2024 CNOV Office Visit (INTMWS ) NATALI MONDRAGON ([id number]) 1950 F Date Time Provider Department 08/16/24 10:00 AM HUGO RO INTMWS During your visit today, we recorded the following information about you: Temperature Pulse Respiration Blood pressure 98 degrees 84/minute 20/minute 118/62 Weight 66.4 kg Hugo Ro MD 08/16/2024 11:52 AM Signed This note was created using [employer]. Subjective Natali Mondragon is a 73 year old female. She was referred from to the ER for acute nausea, vomiting, and diarrhea 08/13/24. Labs were notable for elevated lipase, and pyuria. Patient had no urinary symptoms. CT scan of the abdomen and pelvis showed no acute process, and a right inguinal hernia. She was discharged to outpatient follow up and symptoms resolved. She had no history of abdominal pain. Review of Systems Constitutional: Negative for appetite change, chills, fatigue and fever. Respiratory: Negative for cough and shortness of breath. Cardiovascular: Negative for chest pain, palpitations and leg swelling. Gastrointestinal: Negative for abdominal pain, blood in stool, diarrhea, nausea and vomiting. Genitourinary: Negative for difficulty urinating and dysuria. Neurological: Negative for dizziness and headaches. ACTIVE PROBLEM LIST Depression Desirae (Obstructive Sleep Apnea) Tubular Adenoma Hyperlipemia Anxiety Osteopenia Impingement Syndrome of Right Shoulder Gastroesophageal Reflux Disease Essential Hypertension Urge Incontinence Impingement Syndrome of Left Shoulder Obesity, Class I, Bmi 30-34.9 Right Inguinal Hernia Social History Tobacco Use Smoking status: Former Types: Cigarettes Smokeless tobacco: Never Tobacco comments: very rarely when I was a teenager Vaping Use Vaping status: Never Used Substance Use Topics Alcohol use: Yes Comment: occasional wine with dinner Drug use: Yes Frequency: 7.0 times per week Types: Marijuana Comment: daily smokes 1/2 joint am and pm Current Outpatient Medications Medication Sig amLODIPine (NORVASC) 10 mg tablet Take 1 tablet by mouth once daily. omeprazole (PRILOSEC) 40 mg capsule Take 1 capsule by mouth once daily. PARoxetine (PAXIL) 40 mg tablet Take 1 tablet by mouth once daily. atorvastatin (LIPITOR) 10 mg tablet Take 1 tablet by mouth daily at bedtime. For cholesterol. vibegron (GEMTESA) 75 mg tablet Take 1 tablet by mouth once daily. Cholecalciferol, Vitamin D3, 1,000 unit cap Take 1 capsule by mouth once daily. calcium carbonate 600 mg-cholecalciferol 200 units (CALCIUM 600 + D,3,) 600 mg(1,500mg) -200 unit tab Take 1 tablet by mouth twice daily. ondansetron orally disintegrating (ZOFRAN ODT) 4 mg disintegrating tablet Take 1 tablet by mouth every 8 hours as needed for nausea/vomiting. No current facility-administered medications for this visit. Objective BP 118/62 (BP Site: Left Arm, BP Position: Sitting, BP Cuff Size: Large Adult) Pulse 84 Temp 36.7 ?C (98 ?F) (Temporal) Resp 20 Wt 66.4 kg (146 lb 6.2 oz) BMI 32.82 kg/m? Physical Exam Constitutional: General: She is not in acute distress. Appearance: She is not ill-appearing. Cardiovascular: Heart sounds: Normal heart sounds. Pulmonary: Breath sounds: Normal breath sounds. Abdominal: Palpations: Abdomen is soft. There is no mass. Tenderness: There is no abdominal tenderness. Hernia: No hernia is present. Comments: No hernia appreciated. Musculoskeletal: Right lower leg: No edema. Left lower leg: No edema. Neurological: Mental Status: She is alert. Assessment and Plan 1. Right inguinal hernia - ICD9: 550.90, ICD10: K40.90 (primary diagnosis) Observe for symptoms, pain in the right lower abdomen. No intervention needed at this time. 2. Nausea and vomiting, unspecified vomiting type - ICD9: 787.01, ICD10: R11.2 Resolving. - ONDANSETRON 4 MG DISINTEGRATING TABLET 3. Essential hypertension - ICD9: 401.9, ICD10: I10 - Controlled Hugo Ro MD Allergies As of Date: 08/16/2024 (No Known Allergies) Date Reviewed: 08/16/2024 Reviewed by: Xiomara Early LPN - Fully Assessed Reason for Visit: ER F/U [41] Primary Visit Diagnosis:Right inguinal hernia [K40.90] Other Visit Diagnoses:Nausea and vomiting, unspecified vomiting type [R11.2] Essential hypertension [I10] Order(s):ondansetron orally disintegrating (ZOFRAN ODT) 4 mg disintegrating tabletTake 1 tablet by mouth every 8 hours as needed for nausea/vomiting.Disp: 20 tabletRfl: 0 Prescriptions as of 08/16/2024 - ondansetron orally disintegrating (ZOFRAN ODT) 4 mg disintegrating tablet Take 1 tablet by mouth every 8 hours as needed for nausea/vomiting. - amLODIPine (NORVASC) 10 mg tablet Take 1 tablet by mouth once daily. - omeprazole (PRILOSEC) 40 mg capsule Take 1 capsule by mouth once daily. - PARoxetine (PAXIL) 40 m (more content not included)... Normal [facility] Urine Cultureon 08-16-2024 URC Mixed Gram Positive Organisms [place] Count 25,000-50,000 MIXC Mixed contaminants. Submit a new specimen if indicated. Normal [facility] Comment on above: Performed By: #### M 100.2200 ####[facility] [id number] [facility] [place], [address] 12 Lead EKGon 08-13-2024 12 Lead EKG [facility] [address] [place] [address] 12 Lead EKG 08/13/24 2202 MR#: [id number] Acct: [id number] Name: NATALI MONDRAGON Rep #: [id number] : 1950 73 From: Wilfrido Steele MD Attending Dr: Status: DEP ER Ordering Dr: Seferino Rosa DO Date: 08/13/24 Location: ED Sex: F C Admitted: Test Reason : DYSRHYTHMIA Blood Pressure : */* mmHG Vent. Rate : 88 BPM Atrial Rate : 88 BPM P-R Int : 128 ms QRS Dur : 78 ms QT Int : 384 ms P-R-T Axes : 68 58 11 degrees QTcB Int : 464 ms Normal sinus rhythm Nonspecific T wave abnormality Abnormal ECG Confirmed by WILFRIDO STEELE MD ([id number]), clinical editor LENA RUBIO ([id number]) on 08/14/2024 8:55:04 AM Referred By: Confirmed By: WILFRIDO STEELE MD 08/14/24 0855 Date Wilfrido Steele MD CC: Dr. Seferino Rosa DO; Dr. Hugo Ro MD Signed Normal [facility] CBC W/Diff, Automatedon 02-0 3-2025 Absolute Lymph 1.18 X10 3/uL Normal 0.83-4.51 [facility] Comment on above: Performed By: #### L 100.0100, L503.6005, L501.2450, L500.4050 #### [facility] [address] [place], [address] Absolute Neut 6.8 X10 3/uL Normal 2.0-7.7 [facility] Comment on above: Performed By: #### L 100.0100, L503.6005, L501.2450, L500.4050 #### [facility] [address] [place], [address] Basophils/100 WBC (Bld) 0.1 % Normal 0-1 [facility] Comment on above: Performed By: #### L 100.0100, L503.6005, L501.2450, L500.4050 #### [facility] [address] [place], [address] Eosinophils/100 WBC (Bld) 0.0 % Normal 0-5 [facility] Comment on above: Performed By: #### L 100.0100, L503.6005, L501.2450, L500.4050 #### [facility] [address] [place], [address] Erythrocyte distribution width (RBC) [Ratio] 12.5 % Normal 11.6-14.6 [facility] Comment on above: Performed By: #### L 100.0100, L503.6005, L501.2450, L500.4050 #### [facility] [address] [place], [address] Hematocrit (Bld) [Volume fraction] 35.9 % Low 37-47 [facility] Comment on above: Performed By: #### L 100.0100, L503.6005, L501.2450, L500.4050 #### [facility] [address], [address] Hemoglobin (Bld) [Mass/Vol] 12.5 g/dL Normal 12.0-15.0 [facility] Comment on above: Performed By: #### L 100.0100, L503.6005, L501.2450, L500.4050 #### [facility] [address] [place], [address] IG% 0.200 Normal 0.0-0.9 [facility] Comment on above: Result Comment: IG% - Immature Granulocytes (promyelocytes, myelocytes and metamyelocytes) > 1% indicates that a LEFT SHIFT is Present. Performed By: #### L 100.0100, L503.6005, L501.2450, L500.4050 #### [facility] [address] [place], [address] Lymphocytes/100 WBC (Bld) 13.9 % Low 19-41 [facility] Comment on above: Performed By: #### L 100.0100, L503.6005, L501.2450, L500.4050 #### [facility] [address] [place] [place], [address] MCH (RBC) [Entitic mass] 29.8 pg Normal 27.0-32.0 [facility] Comment on above: Performed By: #### L 100.0100, L503.6005, L501.2450, L500.4050 #### [facility] [address] [place], [address] MCHC (RBC) [Mass/Vol] 34.8 g/dL Normal 32-36 [facility] Comment on above: Performed By: #### L 100.0100, L503.6005, L501.2450, L500.4050 #### [facility] [address] [place], [address] MCV (RBC) [Entitic vol] 85.5 fL Normal 81-99 [facility] Comment on above: Performed By: #### L 100.0100, L503.6005, L501.2450, L500.4050 #### [facility] [address] [place], [address] Monocytes/100 WBC (Bld) 5.3 % Normal 0-10 [facility] Comment on above: Performed By: #### L 100.0100, L503.6005, L501.2450, L500.4050 #### [facility] [address] [place], [address] Neutrophils/100 WBC (Bld) 80.5 % High 47-70 [facility] Comment on above: Performed By: #### L 100.0100, L503.6005, L501.2450, L500.4050 #### [facility] [address] [place], [address] Nucleated RBC (Bld) [#/Vol] 0 10*3/uL Normal 0-5 [facility] Comment on above: Performed By: #### L 100.0100, L503.6005, L501.2450, L500.4050 #### [facility] [address] [place], [address] Platelet mean volume (Bld) [Entitic vol] 9.6 fL Normal 6.2-12.0 [facility] Comment on above: Performed By: #### L 100.0100, L503.6005, L501.2450, L500.4050 #### [facility] [address] [place], [address] Platelets (Bld) [#/Vol] 205 10*3/uL Normal 150-450 [facility] Comment on above: Performed By: #### L 100.0100, L503.6005, L501.2450, L500.4050 #### [facility] [address] [place], [address] RBC (Bld) [#/Vol] 4.20 10*6/uL Normal 4.2-5.4 [facility] Comment on above: Performed By: #### L 100.0100, L503.6005, L501.2450, L500.4050 #### [facility] [address] [place], [address] RDW SD 38.3 fl Normal 35.1-43.9 [facility] Comment on above: Performed By: #### L 100.0100, L503.6005, L501.2450, L500.4050 #### [facility] [address] [place], [address] WBC (Bld) [#/Vol] 8.5 10*3/uL Normal 4.4-11.0 [facility] Comment on above: Performed By: #### L 100.0100, L503.6005, L501.2450, L500.4050 #### [facility] [address] [place], [address] CNOVon 08-13-2024 CNOV Office Visit (UCWSTR ) NATALI MONDRAGON ([id number]) 1950 F Date Time Provider Department 08/13/24 5:45 PM MAURICE KAUR UCWSTR During your visit today, we recorded the following information about you: Temperature Pulse Respiration Blood pressure 100.4 degrees 94/minute 20/minute 120/76 Weight 67.6 kg Maurice Kaur APRN.YARN [employer]ULER 08/13/2024 6:04 PM Signed Came in with complaints of vomiting and diarrhea that started at 1 AM this morning. Patient says she feels very tired and weak. Patient says she has been able to keep down a few sips but not much. Patient says she has been pretty much consistently sitting on the toilet and vomiting at the same time since 1 AM. At this time I am more concerned for a possible dehydration. Labs are close here so patient is being referred to the emergency room for more thorough evaluation and some fluids. Patient's caregiver was agreeable will take her now. Allergies As of Date: 08/13/2024 (No Known Allergies) Date Reviewed: 08/13/2024 Reviewed by: Madhuri Rhodes MA - Fully Assessed Reason for Visit: Nausea AND Vomiting [237] Cmt: diarrhea x 1 day Primary Visit Diagnosis:Nausea and vomiting, unspecified vomiting type [R11.2] Other Visit Diagnosis:Diarrhea, unspecified type [R19.7] Prescriptions as of 08/13/2024 - ondansetron orally disintegrating (ZOFRAN ODT) 4 mg disintegrating tablet Take 1 tablet by mouth every 8 hours as needed for nausea/vomiting. - medroxyPROGESTERone (PROVERA) 2.5 mg tablet Take 2.5 mg by mouth once daily. Take 1 tablet by mouth once daily for 21 days, take 7 days off - amLODIPine (NORVASC) 10 mg tablet Take 1 tablet by mouth once daily. - omeprazole (PRILOSEC) 40 mg capsule Take 1 capsule by mouth once daily. - PARoxetine (PAXIL) 40 mg tablet Take 1 tablet by mouth once daily. - atorvastatin (LIPITOR) 10 mg tablet Take 1 tablet by mouth daily at bedtime. For cholesterol. - vibegron (GEMTESA) 75 mg tablet Take 1 tablet by mouth once daily. - Cholecalciferol, Vitamin D3, 1,000 unit cap Take 1 capsule by mouth once daily. - calcium carbonate 600 mg-cholecalciferol 200 units (CALCIUM 600 + D,3,) 600 mg(1,500mg) -200 unit tab Take 1 tablet by mouth twice daily. Meds Comments as of 08/18/2011: Problem List As Of Date 08/13/2024 Noted Resolved HIGH BLOOD PRESSURE-NO HYPERTENSN [R03.0] 01/10/2008 04/09/2016 Exostosis of unspecified site [M89.8X9] 01/18/2008 04/28/2015 Neuralgia, neuritis, and radiculitis, unspecifi*01/18/2008 04/28/2015 Unspecified sleep apnea [G47.30] 01/14/2009 04/28/2015 HYPERLIPIDEMIA [E78.5] 01/14/2009 12/01/2015 Depression [F32.A] 07/14/2009 DESIRAE (obstructive sleep apnea) [G47.33] 11/11/2009 Lumbago [M54.50] 04/16/2011 01/18/2024 Enthesopathy of unspecified site [M77.9] 06/29/2011 12/01/2015 Pain in limb [M79.609] 07/16/2011 12/01/2015 Special screening for malignant neoplasms, colo*11/17/2011 01/18/2024 Tubular adenoma [D36.9] 02/25/2012 Hyperlipemia [E78.5] 10/03/2013 Breast screening, unspecified [Z12.39] 09/06/2014 12/01/2015 Anxiety [F41.9] 04/28/2015 Primary osteoarthritis of right knee [M17.11] 07/28/2015 05/24/2022 Pain in right knee [M25.561] 07/28/2015 08/10/2017 Obesity, Class II, BMI 35-39.9 [E66.812] 03/29/2018 05/24/2022 Osteopenia [M85.80] 04/22/2016 Impingement syndrome of right shoulder [M75.41] 08/10/2017 Arthritis of midfoot [M19.079] 08/10/2017 01/18/2024 Gastroesophageal reflux disease [K21.9] 03/29/2018 Essential hypertension [I10] 02/22/2019 Knee injuries, left, initial encounter [S89.92X*07/08/2020 10/21/2020 Urge incontinence [N39.41] 10/23/2020 Impingement syndrome of left shoulder [M75.42] 2021 Obesity, Class I, BMI 30-34.9 [E66.811] 05/24/2022 Encounter Status:Closed by MAURICE KAUR on 08/13/24 Normal [facility] CTA Abd/Pelvis W/WO Contrast on 08-13-2024 CTA Abd/Pelvis W/WO Contrast [facility] Imaging Services [address] [place] [address] CTA Abd/Pelvis W/WO Contrast MR#: [id number] Acct: [id number] Name: NATALI MONDRAGON Rep #: [id number] : 1950 F 73 From: Dustin Phillips DO PCP: Dr. Hugo Ro MD Status: REG ER Study: CTA Abd/Pelvis W/WO Contrast Date of Exam: 10/02 Exam# [id number] Ordering Dr: Seferino Rosa DO PROCEDURE: CTA ABD/PELVIS W/WO CONTRAST REASON FOR EXAM: Left lower quadrant pain. Dark stool. Nausea, vomiting, diarrhea. TECHNIQUE: CTA imaging of the abdomen and pelvis with intravenous contrast. 3D reconstructions. COMPARISON: CT abdomen/pelvis from 12/31/2022. FINDINGS: Abdominal aorta demonstrates normal caliber without aneurysm or dissection. There are atherosclerotic calcifications of the abdominal aorta. There are calcifications at the origin of the celiac artery with mild stenosis. Otherwise the celiac artery is patent. There are calcifications at the origin of the superior mesenteric artery with no significant stenosis. Bilateral renal arteries are patent. Inferior mesenteric artery is patent. Bilateral common iliac, internal iliac, and external iliac arteries are patent. No definite active hemorrhage is identified. Lung bases are clear. There are bilateral posterior medial diaphragmatic hernias. Liver and spleen are limited due to the phase of contrast. Multiple splenic calcifications likely relates to prior granulomatous disease. Gallbladder, biliary system, pancreas, and adrenal glands are unremarkable. There is wall thickening of the stomach. There is a duodenal diverticulum. Bilateral kidneys enhance homogeneously without hydronephrosis or hydroureter. There is an inferior pole right renal cyst measuring 6.6 cm. Urinary bladder is underdistended. Uterus is present. Colonic diverticulosis is identified without diverticulitis. There is a right inguinal hernia which contains a short segment of small bowel without obstruction. No free air or free fluid is identified. Evaluation of the osseous structures demonstrates degenerative changes. There is chronic grade 1 anterolisthesis of L4-L5. There is associated uncovering of the disc/disc bulge at L4-L5 as well as advanced facet arthropathy with resultant severe central canal stenosis. Additionally, there is a disc bulge with facet/flavum hypertrophy at L3-L4 with severe central canal stenosis. CT/CTA Abd/Pelvis W/WO Contrast IMPRESSION: 1. No evidence of abdominal aortic aneurysm or dissection. Atherosclerotic calcifications are present. No definite active hemorrhage is seen. 2. Wall thickening of the stomach which may relate to underdistention or gastritis. 3. Colonic diverticulosis without diverticulitis. 4. Right inguinal hernia which contains a short segment of small bowel without obstruction. 5. Grade 1 anterolisthesis of L4-L5 with uncovering of the disc/disc bulge as well as advanced facet arthropathy with resultant severe central canal stenosis. Additionally at L3-L4, there is a disc bulge with facet/flavum hypertrophy with severe central canal stenosis. Findings can be better assessed with MRI of the lumbar spine on an outpatient basis. 6. Additional findings as above. One or more dose reduction techniques were used (e.g., Automated exposure control, adjustment of the mA and/or kV according to patient size, use of iterative reconstruction technique). Reading Location: [facility] CC: Dr. Seferino Rosa DO; Dr. Hugo Ro MD Rn Urology: Signed Normal [facility] Comprehensive Metabolic Prof ilon 08-13-2024 Albumin [Mass/Vol] 3.4 g/dL Normal 3.2-5.0 [facility] Comment on above: Performed By: #### L 100.0100, L503.6005, L501.2450, L500.4050 #### [facility] [address] [place], [address] Albumin/Globulin [Mass ratio] 1.0 {ratio} Normal 0.9-2.4 [facility] Comment on above: Performed By: #### L 100.0100, L503.6005, L501.2450, L500.4050 #### [facility] [address] [place], [address] ALK P 55 U/L Normal 45-117 [facility] Comment on above: Performed By: #### L 100.0100, L503.6005, L501.2450, L500.4050 #### [facility] [address] [place], [address] ALT [Catalytic activity/Vol] 19 U/L Normal 13-56 [facility] Comment on above: Performed By: #### L 100.0100, L503.6005, L501.2450, L500.4050 #### [facility] [address] [place], [address] AST [Catalytic activity/Vol] 17 U/L Normal 15-37 [facility] Comment on above: Performed By: #### L 100.0100, L503.6005, L501.2450, L500.4050 #### [facility] [address] [place], [address] Bilirubin [Mass/Vol] 0.40 mg/dL Normal 0.20-1.00 [facility] Comment on above: Result Comment: For patients on eltrombopag therapy, use of Dimension [place] TBIL is not recommended. Performed By: #### L 100.0100, L503.6005, L501.2450, L500.4050 #### [facility] [address] [place], [address] BUN/CRE 25.7 RATIO High 10-20 [facility] Comment on above: Performed By: #### L 100.0100, L503.6005, L501.2450, L500.4050 #### [facility] [address] [place], [address] CA,Total 9.2 mg/dL Normal 8.5-10.1 [facility] Comment on above: Performed By: #### L 100.0100, L503.6005, L501.2450, L500.4050 #### [facility] [address] [place], [address] Chloride [Moles/Vol] 112 mmol/L High 98-107 [facility] Comment on above: Performed By: #### L 100.0100, L503.6005, L501.2450, L500.4050 #### [facility] [address] [place], [address] CO2 [Moles/Vol] 20.0 mmol/L Low 21.0-32.0 [facility] Comment on above: Performed By: #### L 100.0100, L503.6005, L501.2450, L500.4050 #### [facility] [address] [place], [address] Creatinine [Mass/Vol] 0.89 mg/dL Normal 0.55-1.02 [facility] Comment on above: Result Comment: The validity of the calculated GFR GFRAA in patients over 70 years has not been determined. Clinical correlation is essential. Performed By: #### L 100.0100, L503.6005, L501.2450, L500.4050 #### [facility] [address] [place], [address] ECRCL 46.85 ml/min Normal [facility] Comment on above: Performed By: #### L 100.0100, L503.6005, L501.2450, L500.4050 #### [facility] [address] [place], [address] EST GFR - AA 79 mL/min Normal >60 [facility] Comment on above: Result Comment: Afri can [place] GFR Calc Performed By: #### L 100.0100, L503.6005, L501.2450, L500.4050 #### [facility] [address] [place], [address] GAP 9 Normal 5-15 [facility] Comment on above: Performed By: #### L 100.0100, L503.6005, L501.2450, L500.4050 #### [facility] [address] [place], [address] GFR/1.73 sq M.predicted among non-blacks MDRD (S/P/Bld) [Vol rate/Area] 65 mL/min/{1.73_m2} Normal >60 [facility] Comment on above: Result Comment: Non- GFR Calc Performed By: #### L 100.0100, L503.6005, L501.2450, L500.4050 #### [facility] [address] [place], [address] Globulin (S) [Mass/Vol] 3.4 g/dL Normal 2.2-4.2 [facility] Comment on above: Performed By: #### L 100.0100, L503.6005, L501.2450, L500.4050 #### [facility] [address] [place], [address] Glucose [Mass/Vol] 100 mg/dL Normal 74-106 [facility] Comment on above: Result Comment: Fast ing Glucose result from 100 to 125 mg/dL suggests IMPAIRED HOMEOSTASIS per A.D.A. criteria. Performed By: #### L 100.0100, L503.6005, L501.2450, L500.4050 #### [facility] [address] [place], [address] Potassium [Moles/Vol] 3.5 mmol/L Normal 3.5-5.1 [facility] Comment on above: Performed By: #### L 100.0100, L503.6005, L501.2450, L500.4050 #### [facility] [address] [place], [address] Sodium [Moles/Vol] 140 mmol/L Normal 136-145 [facility] Comment on above: Performed By: #### L 100.0100, L503.6005, L501.2450, L500.4050 #### [facility] [address] [place], [address] T PROT 6.8 g/dL Normal 6.4-8.2 [facility] Comment on above: Performed By: #### L 100.0100, L503.6005, L501.2450, L500.4050 #### [facility] [address] [place], [address] Urea nitrogen [Mass/Vol] 23 mg/dL High 7-18 [facility] Comment on above: Performed By: #### L 100.0100, L503.6005, L501.2450, L500.4050 #### [facility] [address] [place], [address] Emergency Department Summary on 08-13-2024 Emergency Department Summary [facility] Medical Records Department [address] [place] [address] Emergency Department Summary 08/13/24 MR#: [id number] Acct: [id number] Name: NATALI MONDRAGON Rossana Rep #: [id number] : 1950 73 From: Seferino Rosa DO PCP: Dr. Hugo Ro MD Status:REG ER Location: ED ADDENDUM by Dr. Seferino Rosa DO on 08/13/24 at 2346 Patient is EKG reviewed and independently interpreted by myself showed sinus rhythm with a rate of 88 bpm. 08/13/24 2346 Cosigner Signature (if applicable): cc: Dr. Hugo Ro MD * Signed HPI History of Present Illness Chief Complaint: Nausea/Vomiting/Diarrhe a Narrative Narrative: Patient is a 73-year-old female past medical history of anxiety, GERD, hypercholesteremia, hypertension who presented to the emergency department with a chief complaint of nausea vomiting diarrhea. Patient states that her symptoms started around 1 AM denies any sick contacts. Patient states that her stools have been dark in nature but denies any heavy NSAID use denies any blood thinner medications. Patient states that she went to urgent care they were concerned that she was dehydrated and sent her here for further evaluation management. [facility] Medical History Genetic testing Status post hysteroscopy Wears glasses Depression Anxiety Arthritis Bladder disease High cholesterol Gastric reflux Shortness of breath on exertion Former smoker CPAP (continuous positive airway pressure) dependence Hypertension Home Medications ???Medication ???Instructions ???Recorded ???Last Taken ???Type amlodipine 10 mg tablet 10 mg PO DAILY 10/07/21 Unknown Hi story paroxetine HCl 40 mg tablet (Paxil) 40 mg PO DAILY 10/07/21 Unknown History atorvastatin 10 mg tablet 10 mg PO QHS 10/08/21 Unknown Hist ory cholecalciferol (vitamin D3) 50 50 mcg PO DAILY 10/08/21 Unknown H istory mcg (2,000 unit) capsule multivitamin 1 tab PO DAILY 10/08/21 Unknown Hi story omeprazole 40 mg capsule,delayed 40 mg PO DAILY 10/08/21 Unknown Hi story release osteo biflex 1 tab PO DAILY 10/08/21 Unknown Hi story vibegron 75 mg tablet (Gemtesa) 75 mg PO DAILY 10/08/21 Unknown Hi story vitamin E 200 unit capsule 200 unit PO DAILY 10/08/21 Unknown History dicyclomine 20 mg tablet 20 mg PO TID #20 tabs 08/13/24 Unk nown Rx ondansetron 4 mg disintegrating 4 mg PO Q6H PRN nausea and 5 Unknown Rx tablet vomiting #20 tabs Allergy/AdvReac Type Severity Reaction Status Date / Time No Known Allergies Allergy Verified 08/03/24 15:49 Family History Mother Lung cancer Daughter Lung cancer Father Stomach cancer Surgical History S/P dilation and curettage ( 10/14/21) History of Social History Smoking Status: Former smoker alcohol intake: current details: occasionally substance use type: does not use caffeine: Yes what type of physical activity do you participate in: none seatbelt use: always do you feel safe at home: Yes additional social history: ROS ROS ED ROS Narrative Constitutional: Denies fevers, chills, headaches Eyes: Denies change in vision double vision blurry vision Cardiovascular: Denies chest pain Respiratory: Denies shortness of breath Abdomen: Complains of abdominal pain vomiting diarrhea as noted above : Denies any urinary symptoms Neurological: Denies numbness, weakness, tingling Musculoskeletal: Denies back pain Skin: Denies rashes or lesions EXAM Physical Exam Narrative Exam Narrative: General: Patient is lying in bed rest comfortably did not appear to be in acute distress Head: Atraumatic, normocephalic Eyes: PERRL bilaterally, EOMI bilaterally, no conjunctival injection noted Neck: Soft, supple, trach midline Cardiovascular: Regular rate and rhythm no murmurs gallops rubs noted Respiratory: Clear to auscultation bilaterally no rales rhonchi or wheezes noted Abdomen: Soft, nondistended, tenderness palpation left lower quadrant no rebound or guarding on exam Extremities: +4/5 strength noted in the bilateral upper and lower extremities, radial pulses +2/4 in the bilateral extremities Neurological: Patient following commands knew that she was at [facility] year is 2024 Skin: Warm, dry, intact no rashes or lesions noted Const Vital Signs: 08/13/24 18:09 08/13/24 20:08 08/13/24 22:00 Temperature 98.2 F Temperature Source Temporal Pulse Rate 95 74 85 Respiratory Rate 16 16 15 Blood Pressure 103/91 H 100/88 H 120/55 L Blood Pressure Mean 95 92 76 Pulse Ox 98 98 98 Oxygen Deli (more content not included)... Normal [facility] Lactic Acidon 08-13-2024 Lactate [Moles/Vol] 1.6 mmol/L Normal 0.4-1.9 [facility] Comment on above: Order Comment: Y Performed By: #### L 100.0100, L503.6005, L501.2450, L500.4050 #### [facility] [address] [place], [address] Lipaseon 08-13-2024 Lipase [Catalytic activity/Vol] 156 U/L High 13-75 [facility] Comment on above: Result Comment: Nehemiah lamar note: LIPASE revised reference range effective 22. New Lipase methodology. Expected to produce lower values than the previous assay method. NEW Reference Range: 13 - 75 U/L Performed By: #### L 100.0100, L503.6005, L501.2450, L500.4050 #### [facility] [address] [place], [address] Stool Occult Blood iFOBon STOB Negative Normal [facility] Comment on above: Performed By: #### M 100.7900 ####[facility] [address] [place], [address] Urinalysis, Completeon 08-13 BACTERIA RARE Normal None Seen [facility] Comment on above: Order Comment: CLEAN CATCH Performed By: #### L 400.0001 #### [facility] [address] [place], [address] CAST,FINE GRAN 0-5 SEEN Normal 0-5 [facility] Comment on above: Order Comment: CLEAN CATCH Performed By: #### L 400.0001 #### [facility] [address] [place], [address] EPI,SQUAMOUS 0-5 SEEN Normal 5-10 [facility] Comment on above: Order Comment: CLEAN CATCH Performed By: #### L 400.0001 #### [facility] [address] [place], [address] Mucus Ql (Urine sed) 1+ /hpf Normal [facility] Comment on above: Order Comment: CLEAN CATCH Performed By: #### L 400.0001 #### [facility] [address] [place], [address] RBC 0-5 SEEN Normal 0-5 [facility] Comment on above: Order Comment: CLEAN CATCH Performed By: #### L 400.0001 #### [facility] [address] [place], [address] WBC 10-25 SEEN Normal 0-5 [facility] Comment on above: Order Comment: CLEAN CATCH Performed By: #### L 400.0001 #### [facility] [address] [place], [address] Pelvic w/ Transvaginalon Pelvic w/ Transvaginal [facility] [address] [place] [address] Pelvic w/ Transvaginal MR#: [id number] Acct: [id number] Name: NATALI MONDRAGON Rep #: [id number] : 1950 F 73 From: Joshua sheehan MD PCP: Dr. Hugo Ro MD Status: REG CLI Study: Pelvic w/ Transvaginal Date of Exam: 08/08/24 Exam# [id number] Ordering Dr: Kay Felton DO PROCEDURE: PELVIC W/ TRANSVAGINAL REASON FOR EXAM: Postmenopausal. Endometrial thickening. TECHNIQUE: Transabdominal and transvaginal pelvic ultrasound COMPARISON: None. FINDINGS: Measurements: Uterus: 6.3 cm x 4.2 cm x 2.6 cm. 2 small fibroids are seen in the lower uterine segment. The larger measures 1.4 cm x 2 cm x 1 cm. Endometrial Thickness: 6.3 mm. This is thickened. The endometrium is hyperechoic. There is evidence of nabothian cyst. Right Ovary: 2.7 cm x 2.9 cm x 2.3 cm. Left Ovary: 1.7 cm x 0.9 cm x 0.9 cm. TRANSABDOMINAL: Uterus: The uterus is anteverted. 2 small fibroids are seen. Nabothian cyst seen. Endometrium: Endometrium is thickened and measures 6.3 mm for the postmenopausal state. Right ovary: There is a 2.4 cm x 2.1 cm x 2 cm right ovarian cyst. Left ovary: Normal size and echotexture. No large pelvic mass identified. Transvaginal sonography was performed to better visualize the endometrium. TRANSVAGINAL: Uterus: Anteverted. Normal contour and myometrial echotexture. Endometrium: Homogeneously thickened. Right ovary: Normal size and echotexture. Left ovary: Normal size and echotexture. Other adnexal findings: None. Cul-de-sac: No free intraperitoneal fluid identified. No tenderness. US/Pelvic w/ Transvaginal IMPRESSION: Thickened endometrium for the patient's age. There are 2 small uterine fibroids. Reading Location: [place] [address] CC: Dr. Kay Felton DO; Dr. Hugo Ro MD Rn Urology: Signed Normal [facility] Teenage Babysitter Office Visit Reporton 08-03-2024 Teenage Babysitter Office Visit Report [facility]'s [address], [address] [place] [address] OFFICE VISIT Date of Service: 08/03/24 MR#: [id number] Acct: [id number] Name: NATALI MONDRAGON Rep #: [id number] : 1950 Provider: Dr. 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 Ditching Required: No Is patient in pain?: No Allergies No Known Allergies Allergy (Verified 08/03/24 15:49) Medications ???Medication ???Instructions ???Recorded ???Confirmed ???Type amlodipine 10 mg tablet 10 mg PO DAILY 10/07/21 08/03/24 History paroxetine HCl 40 mg tablet (Paxil) 40 mg PO DAILY 10/07/21 08/03/24 History atorvastatin 10 mg tablet 10 mg PO QHS 10/08/21 08/03/24 History cholecalciferol (vitamin D3) 50 50 mcg PO DAILY 10/08/21 08/03/24 History mcg (2,000 unit) capsule multivitamin 1 tab PO DAILY 10/08/21 08/03/24 History nortriptyline 10 mg capsule 20 mg PO QHS 10/08/21 08/03/24 History omeprazole 40 mg capsule,delayed 40 mg PO DAILY 10/08/21 08/03/24 History release osteo biflex 1 tab PO DAILY 10/08/21 08/03/24 History vibegron 75 mg tablet (Gemtesa) 75 mg PO DAILY 10/08/21 08/03/24 History vitamin E 200 unit capsule 200 unit PO DAILY 10/08/21 08/03/24 History Is last menstrual period known: No Post menopausal: Yes Patient : No : No PFSH Medical History Genetic testing Status post hysteroscopy Wears glasses Depression Anxiety Arthritis Bladder disease High cholesterol Gastric reflux Shortness of breath on exertion Former smoker CPAP (continuous positive airway pressure) dependence Hypertension Surgical History S/P dilation and curettage ( 10/14/21) History of Family History Mother Lung cancer Daughter Lung cancer Father Stomach cancer Social History Smoking Status: Former smoker alcohol intake: current details: occasionally substance use type: does not use caffeine: Yes what type of physical activity do you participate in: none seatbelt use: always do you feel safe at home: Yes additional social history: HPI 6 M F/U Details: NATALI MONDRAGON is a 73 year old who presents for 6 month check up on postmenopausal bleeding. She states that she is not bleeding since we saw her last and her last emb was benign. (april 2024) ultrasound in january showed a 6 mm endometrium. 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 History 3 Elective abortions Hx Para 3 Spontaneous abortions Hx # Term Pregnancies Ectopic pregnancies Hx # Pregnancies Multiple births # of living children ROS Const ROS Unobtainable: All systems reviewed are unremarkable except as noted in H Resp Resp: Reports system reviewed and no additional complaints, except as documented; Denies cough GI GI: Reports as per HPI Psych Psych: Reports system reviewed and no additional complaints, except as documented Exam Const General: cooperative, healthy appearing, comfortable and no acute distress Resp Effort Inspection: normal respiratory effort Skin General: no rashes or lesions noted Psych Appearance: grossly normal Speech and Movement: speech and movement normal Coding Level of Care Code Off vis,est,level 3 Diagnoses Thickened endometrium R93.89 Postmenopausal bleeding N95.0 Assessment and Plan Assessment and Plan (1) Thickened endometrium: Status: Acute (2) Postmenopausal bleeding: Status: Acute Plan: no further bleeding. plan to return in January for ultrasound and annual. if thickened will biopsy again. Orders: Orders Pelvic w/ Transvaginal Today R93.89 - Abnormal findings on diagnostic imaging of other specified body structures 08/03/24 1701 Date Kay Felton DO Cosign Signature: Date (if applicable) CC: Normal [facility] SCRN MAMM (CAD)W/JJ BILATo n 06-08-2024 SCRN MAMM (CAD)W/JJ BILAT [facility] [address] [place] [address] [id number] SCRN MAMM (CAD)W/JJ BILAT MR#: [id number] Acct: [id number] Name: NATALI MONDRAGON Rossana Rep #: [id number] : 1950 F 73 From: Joshua sheehan MD PCP: Dr. Hugo Ro MD Status: REG CLI Study: SCRN MAMM (CAD)W/JJ BILAT Date of Exam: 05/12 04/03 Exam# [id number] Ordering Dr: [place] [id number] MAMMOGRAPHY - BILATERAL SCREENING REASON FOR EXAM: Female, 73 years old. Routine annual screening examination. PERTINENT HISTORY: Non-contributory. TECHNIQUE: Digital bilateral breast jj (3D mammographic acquisition) in the CC and MLO projections. 2-D mediolateral oblique (MLO) and craniocaudad (CC) views of both breasts were obtained. CAD: Full Field Digital Mammography with Computer Added Detection was performed. COMPARISON: Comparison is made with prior outside examination dated July 18, 2023. FINDINGS: Breast Composition: There are scattered areas of fibroglandular density. There are no dominant masses or suspicious calcifications. No other significant abnormalities are identified. There has been no significant change since the prior study. BI/SCRN MAMM (CAD)W/JJ BILAT IMPRESSION: Stable bilateral screening mammogram. Yearly follow-up mammogram recommended. (A) ASSESSMENT CATEGORY: BIRADS Category 1: Negative. A letter regarding these results will be sent to the patient by the facility within 30 days. Approximately 10% of breast cancers are not detected by mammography. A normal mammogram should not delay biopsy of a clinically suspicious abnormality. [id number] Electronically Signed: Joshua Panchal MD at 8:45 EST , CC: Dr. Kay Felton DO; Dr. Hugo Ro MD Rn Urology: Signed [facility] Office Visit (INTMWS ) NATALI MONDRAGON ([id number]) 1950 F Date Time Provider Department 05/11/24 8:40 AM HUGO RO INTMWS During your visit today, we recorded the following information about you: Pulse Blood pressure Weight 83/minute 126/72 66.7 kg Hugo Ro MD 05/11/2024 8:53 AM Signed This note was created using Daz 3d. Subjective Patient presents with: Recheck: 2 week follow up-today woke up with headache Natali Mondragon is a 73 year old female. She was much better with residual cough and headache. Most other symptoms resolved. Review of Systems Constitutional: Negative for appetite change, chills and fever. Respiratory: Negative for shortness of breath. Gastrointestinal: Negative for abdominal pain, nausea and vomiting. Neurological: Negative for dizziness. ACTIVE PROBLEM LIST Depression Desirae (Obstructive Sleep Apnea) Tubular Adenoma Hyperlipemia Anxiety Osteopenia Impingement Syndrome of Right Shoulder Gastroesophageal Reflux Disease Essential Hypertension Urge Incontinence Impingement Syndrome of Left Shoulder Obesity, Class I, Bmi 30-34.9 Current Outpatient Medications Medication Sig ondansetron orally disintegrating (ZOFRAN ODT) 4 mg disintegrating tablet Take 1 tablet by mouth every 8 hours as needed for nausea/vomiting. amLODIPine (NORVASC) 10 mg tablet Take 1 tablet by mouth once daily. PARoxetine (PAXIL) 40 mg tablet Take 1 tablet by mouth once daily. atorvastatin (LIPITOR) 10 mg tablet Take 1 tablet by mouth daily at bedtime. For cholesterol. vibegron (GEMTESA) 75 mg tablet Take 1 tablet by mouth once daily. Cholecalciferol, Vitamin D3, 1,000 unit cap Take 1 capsule by mouth once daily. calcium carbonate 600 mg-cholecalciferol 200 units (CALCIUM 600 + D,3,) 600 mg(1,500mg) -200 unit tab Take 1 tablet by mouth twice daily. medroxyPROGESTERone (PROVERA) 2.5 mg tablet Take 2.5 mg by mouth once daily. Take 1 tablet by mouth once daily for 21 days, take 7 days off (Patient not taking: Reported on 05/11/2024) omeprazole (PRILOSEC) 40 mg capsule Take 1 capsule by mouth once daily. (Patient not taking: Reported on 05/11/2024) No current facility-administered medications for this visit. Objective BP 126/72 Pulse 83 Wt 66.7 kg (147 lb 0.8 oz) SpO2 97% BMI 32.97 kg/m? Physical Exam Constitutional: Appearance: Normal appearance. She is not ill-appearing. Cardiovascular: Heart sounds: Normal heart sounds. Pulmonary: Breath sounds: Normal breath sounds. Abdominal: Palpations: Abdomen is soft. Tenderness: There is no abdominal tenderness. Neurological: Mental Status: She is alert. Gait: Gait normal. Assessment and Plan 1. Nausea and vomiting, unspecified vomiting type - ICD9: 787.01, ICD10: R11.2 (primary diagnosis) Resolved. 2. Essential hypertension - ICD9: 401.9, ICD10: I10 - Controlled Hugo Ro MD Allergies As of Date: 05/11/2024 (No Known Allergies) Date Reviewed: 04/27/2024 Reviewed by: Shania Shaver LPN - Fully Assessed Reason for Visit: Recheck [92] Cmt: 2 week follow up-today woke up with headache Primary Visit Diagnosis:Nausea and vomiting, unspecified vomiting type [R11.2] Other Visit Diagnosis:Essential hypertension [I10] Prescriptions as of 05/11/2024 - ondansetron orally disintegrating (ZOFRAN ODT) 4 mg disintegrating tablet Take 1 tablet by mouth every 8 hours as needed for nausea/vomiting. - medroxyPROGESTERone (PROVERA) 2.5 mg tablet Take 2.5 mg by mouth once daily. Take 1 tablet by mouth once daily for 21 days, take 7 days off - amLODIPine (NORVASC) 10 mg tablet Take 1 tablet by mouth once daily. - omeprazole (PRILOSEC) 40 mg capsule Take 1 capsule by mouth once daily. - PARoxetine (PAXIL) 40 mg tablet Take 1 tablet by mouth once daily. - atorvastatin (LIPITOR) 10 mg tablet Take 1 tablet by mouth daily at bedtime. For cholesterol. - vibegron (GEMTESA) 75 mg tablet Take 1 tablet by mouth once daily. - Cholecalciferol, Vitamin D3, 1,000 unit cap Take 1 capsule by mouth once daily. - calcium carbonate 600 mg-cholecalciferol 200 units (CALCIUM 600 + D,3,) 600 mg(1,500mg) -200 unit tab Take 1 tablet by mouth twice daily. Meds Comments as of 08/18/2011: Problem List As Of Date 05/11/2024 Noted Resolved HIGH BLOOD PRESSURE-NO HYPERTENSN [R03.0] 01/10/2008 04/09/2016 Exostosis of unspecified site [M89.8X9] 01/18/2008 04/28/2015 Neuralgia, neuritis, and radiculitis, unspecifi*01/18/2008 04/28/2015 Unspecified sleep apnea [G47.30] 01/14/2009 04/28/2015 HYPERLIPIDEMIA [E78.5] 01/14/2009 12/01/2015 Depression [F32.A] 07/14/2009 DESIRAE (obstructive sleep apnea) [G47.33] 11/11/2009 Lumbago [M54.50] 04/16/2011 01/18/2024 Enthesopathy of unspecified site [M77.9] 06/29/2011 12/01/2015 Pain in limb [M79.609] 07/16/2011 12/01/2015 Special screening for malignant (more content not included)... Normal [facility] Teenage Babysitter Office Visit Reporton 05-07-2024 Teenage Babysitter Office Visit Report [facility]'s [address], [address] [place] [address] OFFICE VISIT Date of Service: 05/07/24 MR#: [id number] Acct: [id number] Name: NATALI MONDRAGON Rossana Rep #: [id number] : 1950 Provider: Dr. 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 Ditching Required: No Is patient in pain?: No Allergies No Known Allergies Allergy (Verified 05/07/24 14:08) Medications ???Medication ???Instructions ???Recorded ???Confirmed ???Type amlodipine 10 mg tablet 10 mg PO DAILY 10/07/21 05/07/24 History paroxetine HCl 40 mg tablet (Paxil) 40 mg PO DAILY 10/07/21 05/07/24 History atorvastatin 10 mg tablet 10 mg PO QHS 10/08/21 05/07/24 History cholecalciferol (vitamin D3) 50 50 mcg PO DAILY 10/08/21 05/07/24 History mcg (2,000 unit) capsule multivitamin 1 tab PO DAILY 10/08/21 05/07/24 History nortriptyline 10 mg capsule 20 mg PO QHS 10/08/21 05/07/24 History omeprazole 40 mg capsule,delayed 40 mg PO DAILY 10/08/21 05/07/24 History release osteo biflex 1 tab PO DAILY 10/08/21 05/07/24 History vibegron 75 mg tablet (Gemtesa) 75 mg PO DAILY 10/08/21 05/07/24 History vitamin E 200 unit capsule 200 unit PO DAILY 10/08/21 05/07/24 History Is last menstrual period known: No Post menopausal: Yes Patient : No : No PFSH PFSH Medical History Genetic testing Status post hysteroscopy Wears glasses Depression Anxiety Arthritis Bladder disease High cholesterol Gastric reflux Shortness of breath on exertion Former smoker CPAP (continuous positive airway pressure) dependence Hypertension Surgical History S/P dilation and curettage ( 10/14/21) History of Family History Mother Lung cancer Daughter Lung cancer Father Stomach cancer Social History Smoking Status: Former smoker alcohol intake: current details: occasionally substance use type: does not use caffeine: Yes what type of physical activity do you participate in: none seatbelt use: always do you feel safe at home: Yes additional social history: History 3 Elective abortions Hx Para 3 Spontaneous abortions Hx # Term Pregnancies Ectopic pregnancies Hx # Pregnancies Multiple births # of living children HPI EMB Details: NATALI MONDRAGON is a 73 year old who presents for emb for h/o simple hyperplasia without atypia 2 years ago. She has been on progesterone for the last 18 months. most recent ultrasound showed a 6 mm lining. ROS Const ROS Unobtainable: All systems reviewed are unremarkable except as noted in H Resp Resp: Reports system reviewed and no additional complaints, except as documented; Denies cough GI GI: Reports as per HPI Psych Psych: Reports system reviewed and no additional complaints, except as documented Exam Const General: cooperative, healthy appearing, comfortable and no acute distress Resp Effort Inspection: normal respiratory effort General: bimanual renal exam normal bilaterally External Female Exam: normal appearance of the urethra Urethra: normal appearance of the urethra Speculum Exam - Vagina: normal appearance of the vagina Speculum Exam - Cervix: normal appearance of the cervix Bimanual Exam- Adnexa, other: normal adnexae and normal Pelvic Support: normal Skin General: no rashes or lesions noted Psych Appearance: grossly normal Speech and Movement: speech and movement normal Office Procedures Endometrial Biopsy Endometrial Biopsy Test: Yes Not Applicable Consent Signed: Yes Time out checklist: patient tenaculum used: Yes dilator used: Yes Details: Cervix prepped with betadine and pipelle inserted into uterus without complication. Specimen obtained and sent to lab for analysis. All instruments removed from vagina without complications. Excellent hemostasis noted. Coding Level of Care Code Off vis,est,level 3 Diagnoses History of uterine bleeding Z87.59 Thickened endometrium R93.89 Polyp of cervix uteri N84.1 Endometrial thickening on ultrasound R93.89 CPT Codes Endometrial Biopsy (11873) Assessment and Plan Assessment and Plan (1) History of uterine bleeding: Status: Acute (2) Thickened endometrium: Status: Acute (3) Polyp of cervix uteri: Status: Acute (4) Endometrial thickening on ultrasound: Status: Acute Orders: Ord (more content not included)... Normal [facility] Surgery Specimen Level Alden 05-07-2024 Surgery Specimen Level IV Patient Age/Sex Location Account Attending Physician [facility]AGON 73[facility] [id number] Jonna Ramos Specimen: [id number] Received: 05/07/24 Status: CROW Gonzalez Num: [id number] Spec Type: MARIO COLLINS/C Kallie Dr: Dr. Kay Felton, HEAD OPERATION: Endometrial biopsy PRE-OP DIAGNOSIS: Thickened endometrium TISSUE SUBMITTED: Endometrial lining MICROSCOPIC DIAGNOSIS Endometrial biopsy: Scant fragments of benign endometrial epithelium. See comment. Sincere 05/09/2024 COMMENT Clinical correlation and appropriate follow up are necessary. MICROSCOPIC DESCRIPTION Slides are reviewed. GROSS DESCRIPTION Received is one container labeled with the patient's name and not further designated. The specimen consists of a scant amount of soft tissue. The specimen is totally submitted for cell block preparation. 05/08/2024 TC:4 CPT:34351 Patient Age/Sex Location Account Attending Physician NATALI MONDRAGON 73/F [facility] [id number] Jonna Ramos Signed (signature on file) Dr. Kian Driver MD 05/09/24 1239 Normal [facility] Comment on above: Performed By: #### P KYE #### [facility] [place], [address] CBC panel Auto (Bld)on 04-27 Erythrocyte distribution width (RBC) [Ratio] 11.9 % 11.5 - 15.0 % [facility] Hematocrit (Bld) [Volume fraction] 33.1 % Low 36.0 - 46.0 % [facility] Hemoglobin (Bld) [Mass/Vol] 12.0 g/dL 11.5 - 15.5 g/dL [facility] Interpretation and review of laboratory results Abnormal [facility] MCH (RBC) [Entitic mass] 32.4 pg 26.0 - 34.0 pg [facility] MCHC (RBC) [Mass/Vol] 36.3 g/dL High 30.5 - 36.0 g/dL [facility] MCV (RBC) [Entitic vol] 89.5 fL 80.0 - 100.0 fL [facility] Nucleated RBC (Bld) [#/Vol] NINF [facility] Platelet mean volume (Bld) [Entitic vol] 10.4 fL 9.0 - 12.7 fL [facility] Platelets (Bld) [#/Vol] 236 10*3/uL [facility] RBC (Bld) [#/Vol] 3.70 10*6/uL Low 3.90 - 5.2 0 m/uL [facility] WBC (Bld) [#/Vol] 8.91 10*3/uL [facility] Erythrocyte distribution width (RBC) [Ratio] 11.9 % Normal 11.5-15.0 [facility] Comment on above: Order Comment: Speci men Type: BLOOD SPECIMENOrdering Facility: [facility] Address: [address] [place] [address] Performed By: #### 5 8410-2 ####[facility] [id number] [address] [facility] Hematocrit (Bld) [Volume fraction] 33.1 % Low 36.0-46.0 [facility] Comment on above: Order Comment: Speci men Type: BLOOD SPECIMENOrdering Facility: [facility] Address: [address] [place] [address] Performed By: #### 5 8410-2 ####[facility] LABCLIA [id number] [place] [address] [place] Hemoglobin (Bld) [Mass/Vol] 12.0 g/dL Normal 11.5-15.5 [facility] Comment on above: Order Comment: Speci men Type: BLOOD SPECIMENOrdering Facility: [facility] Address: [address] [place] [address] Performed By: #### 5 8410-2 ####[facility] [id number] [place] [address] [place] MCH (RBC) [Entitic mass] 32.4 pg Normal 26.0-34.0 [facility] Comment on above: Order Comment: Speci men Type: BLOOD SPECIMENOrdering Facility: [facility] Address: [address] [place] [address] Performed By: #### 5 8410-2 ####[facility] [id number] [address] [place] MCHC (RBC) [Mass/Vol] 36.3 g/dL High 30.5-36.0 [facility] Comment on above: Order Comment: Speci men Type: BLOOD SPECIMENOrdering Facility: [facility] Address: [address] [place] [address] Performed By: #### 5 8410-2 ####[facility] [id number] [place] [address] [place] MCV (RBC) [Entitic vol] 89.5 fL Normal 80.0-100.0 [facility] Comment on above: Order Comment: Speci men Type: BLOOD SPECIMENOrdering Facility: [facility] Address: [address] [place] [address] Performed By: #### 5 8410-2 ####[facility] [id number] [place] [address] [place] Nucleated RBC (Bld) [#/Vol] 10*3/uL Normal <0.01 [facility] Comment on above: Order Comment: Speci men Type: BLOOD SPECIMENOrdering Facility: [facility] Address: [address] [place] [address] Performed By: #### 5 8410-2 ####[facility] [id number] [place] [address] [place] Platelet mean volume (Bld) [Entitic vol] 10.4 fL Normal 9.0-12.7 [facility] Comment on above: Order Comment: Speci men Type: BLOOD SPECIMENOrdering Facility: [facility] Address: [address] [place] [address] Performed By: #### 5 8410-2 ####[facility] [id number] [place] [address] [place] Platelets (Bld) [#/Vol] 236 10*3/uL Normal 150-400 [facility] Comment on above: Order Comment: Speci men Type: BLOOD SPECIMENOrdering Facility: [facility] Address: [address] [place] [address] Performed By: #### 5 8410-2 ####[facility] [id number] [place] [address] [place] RBC (Bld) [#/Vol] 3.70 10*6/uL Low 3.90-5.20 [facility] Comment on above: Order Comment: Speci men Type: BLOOD SPECIMENOrdering Facility: [facility] Address: [address] [place] [address] Performed By: #### 5 8410-2 ####[facility] [id number] [place] [address] [place] WBC (Bld) [#/Vol] 8.91 10*3/uL Normal 3.70-11.00 [facility] Comment on above: Order Comment: Speci men Type: BLOOD SPECIMENOrdering Facility: [facility] Address: [address] [place] [address] Performed By: #### 5 8410-2 ####[facility] [id number] [address] [id number] [id number] [place] CNOVon 04-27-2024 CNOV Office Visit (INTMWS ) NATALI MONDRAGON ([id number]) 1950 F Date Time Provider Department 04/27/24 1:40 PM HUGO RO INTMWS During your visit today, we recorded the following information about you: Temperature Pulse Respiration Blood pressure 98.8 degrees 88/minute 18/minute 132/62 Weight Height 64.5 kg 1.422 m Hugo Ro MD 04/27/2024 4:28 PM Signed This note was created using Daz 3d. Subjective Natlai Mondragon is a 73 year old female. She was baby sitting her granddaughter who came down with a viral illness. Her daughter was diagnosed with pneumonia. She then developed nausea with vomiting once, previously ingested food 1 week ago. Since then she has been having nausea, dry heaves, white phlegm, upper abdominal pain, weakness, and cough. She went to last week where chest X-ray was negative and Zofran prescribed. She was not better. Review of Systems Constitutional: Positive for appetite change and chills. Negative for diaphoresis, fatigue, fever and unexpected weight change. HENT: Negative for congestion, ear pain, hearing loss, sinus pain and sore throat. Respiratory: Positive for cough and shortness of breath. Negative for chest tightness and wheezing. Cardiovascular: Negative for chest pain, palpitations and leg swelling. Gastrointestinal: Positive for abdominal pain and nausea. Negative for blood in stool, constipation and diarrhea. Genitourinary: Negative for difficulty urinating and dysuria. Musculoskeletal: Negative for myalgias. Neurological: Positive for light-headedness. Negative for dizziness, tremors, weakness, numbness and headaches. ACTIVE PROBLEM LIST Depression Desirae (Obstructive Sleep Apnea) Tubular Adenoma Hyperlipemia Anxiety Osteopenia Impingement Syndrome of Right Shoulder Gastroesophageal Reflux Disease Essential Hypertension Urge Incontinence Impingement Syndrome of Left Shoulder Obesity, Class I, Bmi 30-34.9 Social History Tobacco Use Smoking status: Former Types: Cigarettes Smokeless tobacco: Never Tobacco comments: very rarely when I was a teenager Vaping Use Vaping status: Never Used Substance Use Topics Alcohol use: Yes Comment: occasional wine with dinner Drug use: Yes Frequency: 7.0 times per week Types: Marijuana Comment: daily smokes 1/2 joint am and pm Current Outpatient Medications Medication Sig ondansetron orally disintegrating (ZOFRAN ODT) 4 mg disintegrating tablet Take 1 tablet by mouth every 8 hours as needed for nausea/vomiting for up to 12 doses. medroxyPROGESTERone (PROVERA) 2.5 mg tablet Take 2.5 mg by mouth once daily. Take 1 tablet by mouth once daily for 21 days, take 7 days off amLODIPine (NORVASC) 10 mg tablet Take 1 tablet by mouth once daily. omeprazole (PRILOSEC) 40 mg capsule Take 1 capsule by mouth once daily. PARoxetine (PAXIL) 40 mg tablet Take 1 tablet by mouth once daily. atorvastatin (LIPITOR) 10 mg tablet Take 1 tablet by mouth daily at bedtime. For cholesterol. vibegron (GEMTESA) 75 mg tablet Take 1 tablet by mouth once daily. Cholecalciferol, Vitamin D3, 1,000 unit cap Take 1 capsule by mouth once daily. calcium carbonate 600 mg-cholecalciferol 200 units (CALCIUM 600 + D,3,) 600 mg(1,500mg) -200 unit tab Take 1 tablet by mouth twice daily. No current facility-administered medications for this visit. Objective BP 132/62 (BP Site: Left Arm, BP Position: Sitting, BP Cuff Size: Regular Adult) Pulse 88 Temp 37.1 ?C (98.8 ?F) Resp 18 Ht 142.2 cm (4' 8) Wt 64.5 kg (142 lb 3.2 oz) SpO2 94% BMI 31.88 kg/m? Physical Exam Constitutional: General: She is not in acute distress. Appearance: She is ill-appearing. She is not toxic-appearing or diaphoretic. HENT: Head: Normocephalic. Right Ear: Tympanic membrane normal. Left Ear: Tympanic membrane normal. Nose: No congestion or rhinorrhea. Mouth/Throat: Mouth: Mucous membranes are dry. Pharynx: No oropharyngeal exudate or posterior oropharyngeal erythema. Eyes: General: No scleral icterus. Conjunctiva/sclera: Conjunctivae normal. Cardiovascular: Rate and Rhythm: Normal rate and regular rhythm. Heart sounds: No murmur heard. No gallop. Pulmonary: Effort: Tachypnea present. No respiratory distress. Breath sounds: No wheezing or rales. Abdominal: General: Bowel sounds are normal. Palpations: Abdomen is soft. Tenderness: There is abdominal tenderness in the epigastric area. There is no right CVA tenderness, left CVA tenderness, guarding or rebound. Negative signs include Conner's sign. Musculoskeletal: Cervical back: Neck supple. Lymphadenopathy: Cervical: No cervical adenopathy. Skin: General: Skin is warm and dry. Findings: No rash. Neurological: General: No focal deficit present. Mental Status: She is alert. Gait: Gait normal. EKG RESULTS: (more content not included)... Normal [facility] Comprehensive metabolic 2000 panelon 04-27-2024 Albumin [Mass/Vol] 3.9 g/dL Normal 3.9-4.9 [facility] Comment on above: Order Comment: Speci men Type: BLOOD SPECIMENOrdering Facility: [facility] Address: [address] [place] [address] Performed By: #### 3 040-3, 45985-5 ####[facility] [id number] [place] [address] [place] ALP [Catalytic activity/Vol] 74 U/L Normal 34-123 [facility] Comment on above: Order Comment: Speci men Type: BLOOD SPECIMENOrdering Facility: [facility] Address: [address] [place] [address] Performed By: #### 3 040-3, 64701-8 ####[facility] [id number] [place] [address] [place] ALT [Catalytic activity/Vol] 12 U/L Normal 7-38 [facility] Comment on above: Order Comment: Speci men Type: BLOOD SPECIMENOrdering Facility: [facility] Address: [address] [place] [id number] Performed By: #### 3 040-3, ####[facility]CL[facility] [id number] [address] [address] [place] Anion gap [Moles/Vol] 13 mmol/L Normal 8-15 [facility] Comment on above: Order Comment: Speci men Type: BLOOD SPECIMENOrdering Facility: [facility] Address: [address] [place] [address] Performed By: #### 3 040-3, 72867-6 ####[facility] [id number] [place] [address] [place] AST [Catalytic activity/Vol] 13 U/L Normal 13-35 [facility] Comment on above: Order Comment: Speci men Type: BLOOD SPECIMENOrdering Facility: [facility] Address: [address] [place], [place] [id number] Performed By: #### 3 040-3, 15962-2 ####[facility] [id number] [place] [address] [place] Bilirubin [Mass/Vol] 0.2 mg/dL Normal 0.2-1.3 [facility] Comment on above: Order Comment: Speci men Type: BLOOD SPECIMENOrdering Facility: [facility] Address: [address] [place] [id number] Performed By: #### 3 040-3, 08500-6 ####[facility] [id number] [place] [id number] [place] Calcium [Mass/Vol] 9.3 mg/dL Normal 8.5-10.2 [facility] Comment on above: Order Comment: Speci men Type: BLOOD SPECIMENOrdering Facility: [facility] Address: [address] [place] [address] Performed By: #### 3 040-3, 38322-3 ####[facility] [id number] [place] [id number] [place] Chloride [Moles/Vol] 102 mmol/L Normal 98-107 [facility] Comment on above: Order Comment: Speci men Type: BLOOD SPECIMENOrdering Facility: [facility] Address: [address] [place] [address] Performed By: #### 3 040-3, ####[facility] [id number] [place] [address] [place] CO2 [Moles/Vol] 22 mmol/L Normal 22-30 [facility] Comment on above: Order Comment: Speci men Type: BLOOD SPECIMENOrdering Facility: [facility] Address: [address] [place] [address] Performed By: #### 3 040-3, 26643-7 ####[facility] [id number] [place] [address] [place] Creatinine [Mass/Vol] 0.97 mg/dL High 0.58-0.96 [facility] Comment on above: Order Comment: Speci men Type: BLOOD SPECIMENOrdering Facility: [facility] Address: [address] [place] [address] Performed By: #### 3 040-3, ####[facility] [id number] [place] [id number] [place] Creatinine and Glomerular filtration rate.predicted panel (S/P/Bld) 61 mL/min/1.73m??? Normal >=60 [facility] Comment on above: Order Comment: Speci men Type: BLOOD SPECIMENOrdering Facility: [facility] Address: [address] [place] [address] Result Comment: Tika mated Glomerular Filtration Rate (eGFR) is calculated using the 2020 CKD-EPI creatinine equation. This equation utilizes serum creatinine, sex, and age as parameters. The creatinine assay has traceable calibration to isotope dilution-mass spectrometry. Refer to KDIGO guidelines for clinical interpretation. In patients with unstable renal function, e.g. those with acute kidney injury, the eGFR may not accurately reflect actual GFR. Performed By: #### 3 040-3, ####[facility] [id number] [place] [address] [place] Glucose [Mass/Vol] 101 mg/dL High 74-99 [facility] Comment on above: Order Comment: Niranjan donaldson Type: BLOOD SPECIMENOrdering Facility: [facility] Address: [address] [place] [address] Result Comment: The [place] [employer] (ADA) provides guidance for cutoff values for fasting glucose and random glucose. The ADA defines fasting as no caloric intake for at least 8 hours. Fasting plasma glucose results between 100 to 125 mg/dL indicate increased risk for diabetes (prediabetes). Fasting plasma glucose results greater than or equal to 126 mg/dL meet the criteria for diagnosis of diabetes. In the absence of unequivocal hyperglycemia, results should be confirmed by repeat testing. In a patient with classic symptoms of hyperglycemia or hyperglycemic crisis, random plasma glucose results greater than or equal to 200 mg/dL meet the criteria for diagnosis of diabetes. Reference: Standards of Medical Care in Diabetes 2016, [place] [employer]. Diabetes Care. 2016.39(Suppl 1). Performed By: #### 3 040-3, 02494-0 ####[facility] [id number] [place] [id number] [place] Potassium [Moles/Vol] 3.8 mmol/L Normal 3.7-5.1 [facility] Comment on above: Order Comment: Niranjan donaldson Type: BLOOD SPECIMENOrdering Facility: [facility] Address: [address] [place] [address] Performed By: #### 3 040-3, 60397-0 ####[facility] [id number] [address] [address] [place] Protein [Mass/Vol] 7.1 g/dL Normal 6.3-8.0 [facility] Comment on above: Order Comment: Speci men Type: BLOOD SPECIMENOrdering Facility: [facility] Address: [address] [place] [address] Performed By: #### 3 040-3, 27405-6 ####[facility] [id number] [place] [id number] [place] Sodium [Moles/Vol] 137 mmol/L Normal 136-144 [facility] Comment on above: Order Comment: Speci men Type: BLOOD SPECIMENOrdering Facility: [facility] Address: [address] [place] [address] Performed By: #### 3 040-3, 12556-7 ####[facility] [id number] [address] [place] Urea nitrogen [Mass/Vol] 13 mg/dL Normal 7-21 [facility] Comment on above: Order Comment: Speci men Type: BLOOD SPECIMENOrdering Facility: [facility] Address: [address] [place] [address] Performed By: #### 3 040-3, 98963-1 ####[facility] [id number] [place] [id number] [place] HER35ex 04-27-2024 ECG01 Ventricular Rate : 8 4 BPM Atrial Rate : 84 BPM P-R Interval : 128 ms QRS Duration : 78 ms Q-T Interval : 382 ms QTC Calculation(Bazett) : 451 ms Calculated P [place] : 60 degrees Calculated R [place] : 66 degrees Calculated T [place] : 40 degrees NORMAL SINUS RHYTHM NORMAL ECG Confirmed by THEA CONNOLLY DO ([id number]) on 04/30/2024 2:48:42 PM NAME : NATALI MONDRAGON PID : [id number] : 1950 Gender : Female Race : ORD : Procedure Date : Apr 27 2024 14:28:25 Edit Date : Apr 30 2024 14:48:46 Diagnosis: NORMAL SINUS RHYTHM NORMAL ECG Confirmed by THEA CONNOLLY DO ([id number]) on 04/30/2024 2:48:42 PM Test Reason : Location : 185 : [facility] Overread By : THEA CONNOLLY DO Edited By : THEA CONNOLLY DO Referred By : Hugo Ro Acquired by : phil, Normal [facility] Lipase SerPl-cCncon 04-27-20 24 Lipase [Catalytic activity/Vol] 29 U/L Normal 16-61 [facility] Comment on above: Order Comment: Speci men Type: BLOOD SPECIMENOrdering Facility: [facility] Address: [address] [place] [address] Performed By: #### 3 040-3, 66328-8 ####[facility] [id number] [facility] [place] [address] [place] UA DIP, URINE (POC)on 2023 BILIRUBIN UA (POCT) Negative Negative [facility] CLARITY UA (POCT) [facility] COLOR UA (POCT) Yellow [facility] GLUCOSE UA (POCT) Negative Negative mg/dL [facility] Hemoglobin Ql (U) Negative Negative [facility] KETONE UA (POCT) Negative Negative mg/dL [facility] LEUKOCYTES UA (POCT) Negative Negative [facility] NITRITE UA (POCT) Negative [facility] PH UA (POCT) 6.5 4.5 - 8.0 [facility] Protein Ql (U) Negative Negative mg/dL [facility] SPECIFIC GRAVITY UA (POCT) 1.010 1.005 - 1.030 [facility] UROBILINOGEN UA (POCT) 0.2 Nelly l E.U./dL [facility] Location:[facility], [address] [place] [address], [place], [address] [facility] POINT OF CARE [facility] CNOVon 04-19-2024 CNOV Office Visit (UCWSTR ) NATALI MONDRAGON ([id number]) 1950 F Date Time Provider Department 04/19/24 5:00 PM FRANCINE CALLAWAY During your visit today, we recorded the following information about you: Temperature Pulse Respiration Blood pressure 98.8 degrees 88/minute 22/minute 142/78 Weight 65 kg Francine Callaway APRN.CNP 04/19/2024 5:50 PM Signed This note was created using PeopleStringriter. Subjective Natali Mondragon is a 73 year old female. HPI Pt's daughter has pneumonia and her grand daughter has croup. Pt worried that she may have pneumonia. Pt has been nauseated for the last five days. Review of Systems Constitutional: Negative for fever. HENT: Negative for congestion, rhinorrhea and sore throat. Respiratory: Negative for cough. Gastrointestinal: Positive for nausea. Objective BP 142/78 Pulse 88 Temp 37.1 ?C (98.8 ?F) Resp 22 Wt 65 kg (143 lb 4.8 oz) SpO2 99% BMI 31.79 kg/m? Physical Exam Vitals and nursing note reviewed. Constitutional: General: She is not in acute distress. Appearance: Normal appearance. She is not ill-appearing. HENT: Head: Normocephalic. Mouth/Throat: Mouth: Mucous membranes are moist. Eyes: Conjunctiva/sclera: Conjunctivae normal. Cardiovascular: Rate and Rhythm: Normal rate and regular rhythm. Pulmonary: Effort: Pulmonary effort is normal. Breath sounds: Normal breath sounds. Musculoskeletal: General: Normal range of motion. Cervical back: Normal range of motion. Skin: General: Skin is warm and dry. Neurological: General: No focal deficit present. Mental Status: She is alert. Psychiatric: Mood and Affect: Mood normal. Behavior: Behavior normal. Assessment and Plan ASSESSMENT/PLAN: 1. Nausea - ICD9: 787.02, ICD10: R11.0 As patient was worried about possible pneumonia chest x-ray was ordered which was unremarkable. She was given a prescription for Zofran to use for her nausea. I do feel her symptoms are more consistent with a mild viral gastritis. - XR CHEST 2V FRONTAL/LAT - ONDANSETRON 4 MG DISINTEGRATING TABLET Francine Callaway APRN.YARN HAULER Allergies As of Date: 04/19/2024 (No Known Allergies) Date Reviewed: 04/19/2024 Reviewed by: Francine Callaway APRN.YARN HAULER - Fully Assessed Reason for Visit: Cough [28] Cmt: Nausea, SOB, cough, exposure x 6 days Primary Visit Diagnosis:Nausea [R11.0] Order(s):XR CHEST 2V FRONTAL/LAT [[id number]] Order #: [id number] FUTURE ondansetron orally disintegrating (ZOFRAN ODT) 4 mg disintegrating tabletTake 1 tablet by mouth every 8 hours as needed for nausea/vomiting for up to 12 doses.Disp: 12 tabletRfl: 0 Prescriptions as of 04/19/2024 - ondansetron orally disintegrating (ZOFRAN ODT) 4 mg disintegrating tablet Take 1 tablet by mouth every 8 hours as needed for nausea/vomiting for up to 12 doses. - medroxyPROGESTERone (PROVERA) 2.5 mg tablet Take 2.5 mg by mouth once daily. Take 1 tablet by mouth once daily for 21 days, take 7 days off - amLODIPine (NORVASC) 10 mg tablet Take 1 tablet by mouth once daily. - omeprazole (PRILOSEC) 40 mg capsule Take 1 capsule by mouth once daily. - PARoxetine (PAXIL) 40 mg tablet Take 1 tablet by mouth once daily. - atorvastatin (LIPITOR) 10 mg tablet Take 1 tablet by mouth daily at bedtime. For cholesterol. - vibegron (GEMTESA) 75 mg tablet Take 1 tablet by mouth once daily. - Cholecalciferol, Vitamin D3, 1,000 unit cap Take 1 capsule by mouth once daily. - calcium carbonate 600 mg-cholecalciferol 200 units (CALCIUM 600 + D,3,) 600 mg(1,500mg) -200 unit tab Take 1 tablet by mouth twice daily. Meds Comments as of 08/18/2011: Problem List As Of Date 04/19/2024 Noted Resolved HIGH BLOOD PRESSURE-NO HYPERTENSN [R03.0] 01/10/2008 04/09/2016 Exostosis of unspecified site [M89.8X9] 01/18/2008 04/28/2015 Neuralgia, neuritis, and radiculitis, unspecifi*01/18/2008 04/28/2015 Unspecified sleep apnea [G47.30] 01/14/2009 04/28/2015 HYPERLIPIDEMIA [E78.5] 01/14/2009 12/01/2015 Depression [F32.A] 07/14/2009 DESIRAE (obstructive sleep apnea) [G47.33] 11/11/2009 Lumbago [M54.50] 04/16/2011 01/18/2024 Enthesopathy of unspecified site [M77.9] 06/29/2011 12/01/2015 Pain in limb [M79.609] 07/16/2011 12/01/2015 Special screening for malignant neoplasms, colo*11/17/2011 01/18/2024 Tubular adenoma [D36.9] 02/25/2012 Hyperlipemia [E78.5] 10/03/2013 Breast screening, unspecified [Z12.39] 09/06/2014 12/01/2015 Anxiety [F41.9] 04/28/2015 Primary osteoarthritis of right knee [M17.11] 07/28/2015 05/24/2022 Pain in right knee [M25.561] 07/28/2015 08/10/2017 Obesity, Class II, BMI 35-39.9 [E66.812] 03/29/2018 05/24/2022 Osteopenia [M85.80] 04/22/2016 Impingement syndrome of right shoulder [M75.41] 08/10/2017 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 Normal [facility] XR CHEST 2V FRONTAL/LATon XR CHEST 2V FRONTAL/LAT * * *Final Report* * * DATE OF EXAM: Apr 19 2024 5:37PM WOX 5291 - XR CHEST 2V FRONTAL/LAT / PROCEDURE REASON: Nausea * * * * Physician Interpretation * * * * EXAMINATION: CHEST RADIOGRAPH (2 VIEW FRONTAL and LATERAL) CLINICAL HISTORY: Nausea MQ: XC2_6 EXAM DATE/TIME: 04/19/2024 5:37 PM COMPARISON: Chest x-ray on 10/10/2023 RESULT: Lines, tubes, and devices: None. Lungs and pleura: Stable calcified granuloma in the left lower lung. No consolidation. No lung mass. No pleural effusion. No pneumothorax. Cardiomediastinal silhouette: Stable cardiomediastinal silhouette. Bones and soft tissues: The spine shows exaggerated kyphosis and degenerative changes. IMPRESSION: No acute radiographic abnormality. Rn Urology: ERMIAS Transcribe Date/Time: Apr 19 2024 5:41P Dictated by : MURALI CARRILLO MD This examination was interpreted and the report reviewed and electronically signed by: MURALI CARRILLO MD on Apr 19 2024 5:42PM EST [id number] Normal [facility] XR Chest PA and Lateralon IMPRESSION: No acute radiographic abnormality. Rn Urology: PSC Transcribe Date/Time: Apr 19 2024 5:41P Dictated by : MURALI CARRILLO MD This examination was interpreted and the report reviewed and electronically signed by: MURALI CARRILLO MD on Apr 19 2024 5:42PM EST DIVISION OF RADIOLOGY * * *Final Report* * * DATE OF EXAM: Apr 19 2024 5:37PM WOX 5291 - XR CHEST 2V FRONTAL/LAT / PROCEDURE REASON: Nausea * * * * Physician Interpretation * * * * EXAMINATION: CHEST RADIOGRAPH (2 VIEW FRONTAL & LATERAL) CLINICAL HISTORY: Nausea MQ: XC2_6 EXAM DATE/TIME: 04/19/2024 5:37 PM COMPARISON: Chest x-ray on 10/10/2023 RESULT: Lines, tubes, and devices: None. Lungs and pleura: Stable calcified granuloma in the left lower lung. No consolidation. No lung mass. No pleural effusion. No pneumothorax. Cardiomediastinal silhouette: Stable cardiomediastinal silhouette. Bones and soft tissues: The spine shows exaggerated kyphosis and degenerative changes. DIVISION OF RADIOLOGY Provider, [facility] - 04/19/2024 * * *Final Report* * * DATE OF EXAM: Apr 19 2024 5:37PM WOX 5291 - XR CHEST 2V FRONTAL/LAT / PROCEDURE REASON: Nausea * * * * Physician Interpretation * * * * EXAMINATION: CHEST RADIOGRAPH (2 VIEW FRONTAL & LATERAL) CLINICAL HISTORY: Nausea MQ: XC2_6 EXAM DATE/TIME: 04/19/2024 5:37 PM COMPARISON: Chest x-ray on 10/10/2023 RESULT: Lines, tubes, and devices: None. Lungs and pleura: Stable calcified granuloma in the left lower lung. No consolidation. No lung mass. No pleural effusion. No pneumothorax. Cardiomediastinal silhouette: Stable cardiomediastinal silhouette. Bones and soft tissues: The spine shows exaggerated kyphosis and degenerative changes. IMPRESSION IMPRESSION: No acute radiographic abnormality. Rn Urology: PSCB Transcribe Date/Time: Apr 19 2024 5:41P Dictated by : MURALI CARRILLO MD This examination was interpreted and the report reviewed and electronically signed by: MURALI CARRILLO MD on Apr 19 2024 5:42PM EST [facility] Radiology Study observation (narrative) [facility] XR Chest PA and LateralOrder ed By: Ccf Provider on 04-19-2024 [facility] CNOVon 01-18-2024 CNOV Office Visit (INTMWS ) NATALI MONDRAGON ([id number]) 1950 F Date Time Provider Department 01/18/24 10:20 AM HUGO RO INTMWS During your visit today, we recorded the following information about you: Temperature Pulse Respiration Blood pressure 98 degrees 84/minute 18/minute 120/74 Weight 64.4 kg Hugo Ro MD 01/18/2024 11:17 AM Signed This note was created using PeopleStringriter. Subjective Natali Mondragon is a 73 year old female. She was doing well. Her hypertension, lipids, anxiety, and depression were controlled. We reviewed her colonoscopy. She declined vaccinations at this time. She had chronic shoulder pains, relieved by exercises and the left was more symptomatic at this time. Review of Systems Constitutional: Negative for fatigue and fever. Respiratory: Negative for chest tightness and shortness of breath. Cardiovascular: Positive for leg swelling. Negative for chest pain and palpitations. Gastrointestinal: Negative for abdominal pain, constipation and diarrhea. Musculoskeletal: Positive for arthralgias. Negative for back pain, myalgias and neck pain. Neurological: Negative for dizziness and headaches. Psychiatric/Behavioral: Negative for dysphoric mood. The patient is not nervous/anxious. ACTIVE PROBLEM LIST Depression Desirae (Obstructive Sleep Apnea) Tubular Adenoma Hyperlipemia Anxiety Osteopenia Impingement Syndrome of Right Shoulder Gastroesophageal Reflux Disease Essential Hypertension Urge Incontinence Impingement Syndrome of Left Shoulder Obesity, Class I, Bmi 30-34.9 Social History Tobacco Use Smoking status: Former Types: Cigarettes Smokeless tobacco: Never Tobacco comments: very rarely when I was a teenager Vaping Use Vaping Use: Never used Substance Use Topics Alcohol use: Yes Comment: occasional wine with dinner Drug use: Yes Frequency: 7.0 times per week Types: Marijuana Comment: daily smokes 1/2 joint am and pm Current Outpatient Medications Medication Sig medroxyPROGESTERone (PROVERA) 2.5 mg tablet Take 2.5 mg by mouth once daily. Take 1 tablet by mouth once daily for 21 days, take 7 days off atorvastatin (LIPITOR) 10 mg tablet Take 1 tablet by mouth daily at bedtime. For cholesterol. PARoxetine (PAXIL) 40 mg tablet Take 1 tablet by mouth once daily. omeprazole (PRILOSEC) 40 mg capsule Take 1 capsule by mouth once daily. amLODIPine (NORVASC) 10 mg tablet Take 1 tablet by mouth once daily. vibegron (GEMTESA) 75 mg tablet Take 1 tablet by mouth once daily. Cholecalciferol, Vitamin D3, 1,000 unit cap Take 1 capsule by mouth once daily. calcium carbonate 600 mg-cholecalciferol 200 units (CALCIUM 600 + D,3,) 600 mg(1,500mg) -200 unit tab Take 1 tablet by mouth twice daily. No current facility-administered medications for this visit. Objective BP 120/74 (BP Site: Left Arm, BP Position: Sitting, BP Cuff Size: Large Adult) Pulse 84 Temp 36.7 ?C (98 ?F) (Temporal) Resp 18 Wt 64.4 kg (142 lb) BMI 31.50 kg/m? Physical Exam Constitutional: Appearance: Normal appearance. HENT: Head: Normocephalic. Eyes: Conjunctiva/sclera: Conjunctivae normal. Cardiovascular: Rate and Rhythm: Normal rate and regular rhythm. Heart sounds: No murmur heard. No gallop. Pulmonary: Breath sounds: Normal breath sounds. Abdominal: Tenderness: There is no abdominal tenderness. Musculoskeletal: General: No tenderness. Normal range of motion. Right lower leg: No edema. Left lower leg: No edema. Neurological: Mental Status: She is alert. Gait: Gait normal. Psychiatric: Mood and Affect: Mood normal. Latest Ref Rng 12/27/2023 Protein, Total 6.3 - 8.0 g/dL 7.0 Albumin 3.9 - 4.9 g/dL 4.4 Calcium 8.5 - 10.2 mg/dL 10.3 (H) Bilirubin, Total 0.2 - 1.3 mg/dL 0.4 Alkaline Phosphatase 34 - 123 U/L 72 AST 13 - 35 U/L 18 ALT 7 - 38 U/L 14 Glucose 74 - 99 mg/dL 96 BUN 7 - 21 mg/dL 14 Creatinine 0.58 - 0.96 mg/dL 0.85 Sodium 136 - 144 mmol/L 142 Potassium 3.7 - 5.1 mmol/L 4.4 Chloride 98 - 107 mmol/L 108 (H) CO2 22 - 30 mmol/L 21 (L) Anion Gap 8 - 15 mmol/L 13 eGFR >=60 mL/min/1.73m? 72 WBC 3.70 - 11.00 k/uL 7.46 RBC 3.90 - 5.20 m/uL 4.46 Hemoglobin 11.5 - 15.5 g/dL 13.9 Hematocrit 36.0 - 46.0 % 39.9 MCV 80.0 - 100.0 fL 89.5 MCH 26.0 - 34.0 pg 31.2 MCHC 30.5 - 36.0 g/dL 34.8 RDW-CV 11.5 - 15.0 % 12.7 Platelet Count 150 - 400 k/uL 235 MPV 9.0 - 12.7 fL 11.0 Absolute nRBC <0.01 k/uL <0.01 Cholesterol, Total <200 mg/dL 162 Triglyceride <150 mg/dL 70 HDL Cholesterol >39 mg/dL 57 Non HDL Cholesterol <130 mg/dL 105 Fasting Time hrs 12 VLDL Cholesterol <30 mg/dL 14 TC:HDL Ratio <5.10 2.84 LDL Cholesterol <100 mg/dL 91 LDL:HDL Ratio <2.54 1.60 Legend: (H) High (L) Low Assessment and Plan 1. Essential hypertension - ICD9: 401.9, ICD10: I10 - Controlled - Continu (more content not included)... Normal [facility] CBC panel Auto (Bld)on 12-26 Erythrocyte distribution width (RBC) [Ratio] 12.7 % Normal 11.5-15.0 [facility] Comment on above: Order Comment: Speci men Type: BLOOD SPECIMENOrdering Facility: [facility] Address: [address] [place] [address] Performed By: #### 5 8410-2 ####[facility] LABCLIA [id number] [place] [address] [place] Hematocrit (Bld) [Volume fraction] 39.9 % Normal 36.0-46.0 [facility] Comment on above: Order Comment: Speci men Type: BLOOD SPECIMENOrdering Facility: [facility] Address: [address] [place] [address] Performed By: #### 5 8410-2 ####[facility]CL[facility] [id number] [place] [address] [place] Hemoglobin (Bld) [Mass/Vol] 13.9 g/dL Normal 11.5-15.5 [facility] Comment on above: Order Comment: Speci men Type: BLOOD SPECIMENOrdering Facility: [facility] Address: [address] [place] [address] Performed By: #### 5 8410-2 ####[facility]CL[facility] [id number] [place] [address] [place] MCH (RBC) [Entitic mass] 31.2 pg Normal 26.0-34.0 [facility] Comment on above: Order Comment: Speci men Type: BLOOD SPECIMENOrdering Facility: [facility] Address: [address] [place] [address] Performed By: #### 5 8410-2 ####[facility]CLIA [id number] [place] [address] [place] MCHC (RBC) [Mass/Vol] 34.8 g/dL Normal 30.5-36.0 [facility] Comment on above: Order Comment: Speci men Type: BLOOD SPECIMENOrdering Facility: [facility] Address: [address] [place] [address] Performed By: #### 5 8410-2 ####[facility]CL[facility] [id number] [place] [address] [place] MCV (RBC) [Entitic vol] 89.5 fL Normal 80.0-100.0 [facility] Comment on above: Order Comment: Speci men Type: BLOOD SPECIMENOrdering Facility: [facility] Address: [address] [place] [address] Performed By: #### 5 8410-2 ####[facility]CL[facility] [id number] [place] [address] [place] Nucleated RBC (Bld) [#/Vol] 10*3/uL Normal <0.01 [facility] Comment on above: Order Comment: Speci men Type: BLOOD SPECIMENOrdering Facility: [facility] Address: [address] [place] [address] Performed By: #### 5 8410-2 ####[facility]CL[facility] [id number] [place] [address] [place] Platelet mean volume (Bld) [Entitic vol] 11.0 fL Normal 9.0-12.7 [facility] Comment on above: Order Comment: Speci men Type: BLOOD SPECIMENOrdering Facility: [facility] Address: [address] [place] [address] Performed By: #### 5 8410-2 ####[facility]CL[facility] [id number] [place] [address] [place] Platelets (Bld) [#/Vol] 235 10*3/uL Normal 150-400 [facility] Comment on above: Order Comment: Speci men Type: BLOOD SPECIMENOrdering Facility: [facility] Address: [address] [place] [address] Performed By: #### 5 8410-2 ####[facility]CLIA [id number] [place] [id number] [place] RBC (Bld) [#/Vol] 4.46 10*6/uL Normal 3.90-5.20 [facility] Comment on above: Order Comment: Speci men Type: BLOOD SPECIMENOrdering Facility: [facility] Address: [address] [place] [address] Performed By: #### 5 8410-2 ####[facility]CL[facility] [id number] [place] [address] [place] WBC (Bld) [#/Vol] 7.46 10*3/uL Normal 3.70-11.00 [facility] Comment on above: Order Comment: Speci men Type: BLOOD SPECIMENOrdering Facility: [facility] Address: [address] [place] [address] Performed By: #### 5 8410-2 ####[facility] LABIA [id number] [place] [address] [place] Comprehensive metabolic 2000 panelon 12-27-2023 Albumin [Mass/Vol] 4.4 g/dL Normal 3.9-4.9 [facility] Comment on above: Order Comment: Speci men Type: BLOOD SPECIMENOrdering Facility: [facility] Address: [address] [place] [address] Performed By: #### 2 4323-8, 36441-9 ####[facility] LABIA [id number] [place] [address] [place] ALP [Catalytic activity/Vol] 72 U/L Normal 34-123 [facility] Comment on above: Order Comment: Speci men Type: BLOOD SPECIMENOrdering Facility: [facility] Address: [address] [place] [address] Performed By: #### 2 4323-8, 44700-5 ####[facility]CL[facility] [id number] [place] [address] [place] ALT [Catalytic activity/Vol] 14 U/L Normal 7-38 [facility] Comment on above: Order Comment: Speci men Type: BLOOD SPECIMENOrdering Facility: [facility] Address: [address] [place] [address] Performed By: #### 2 4323-8, 08691-4 ####[facility]CL[facility] [id number] [place] [address] [place] Anion gap [Moles/Vol] 13 mmol/L Normal 8-15 [facility] Comment on above: Order Comment: Speci men Type: BLOOD SPECIMENOrdering Facility: [facility] Address: [address] [place] [address] Performed By: #### 2 4323-8, 00689-4 ####[facility]CL[facility] [id number] [place] [address] [place] AST [Catalytic activity/Vol] 18 U/L Normal 13-35 [facility] Comment on above: Order Comment: Speci men Type: BLOOD SPECIMENOrdering Facility: [facility] Address: [address] [place] [address] Performed By: #### 2 4323-8, 12425-9 ####[facility]CL[facility] [id number] [place] [address] [place] Bilirubin [Mass/Vol] 0.4 mg/dL Normal 0.2-1.3 [facility] Comment on above: Order Comment: Speci men Type: BLOOD SPECIMENOrdering Facility: [facility] Address: [address] [place] [address] Performed By: #### 2 4323-8, 79589-2 ####[facility]CL[facility] [id number] [place] [address] [place] Calcium [Mass/Vol] 10.3 mg/dL High 8.5-10.2 [facility] Comment on above: Order Comment: Speci men Type: BLOOD SPECIMENOrdering Facility: [facility] Address: [address] [place] [address] Performed By: #### 2 4323-8, 54016-7 ####[facility]CLIA [id number] [facility] [place] [address] [place] Chloride [Moles/Vol] 108 mmol/L High 98-107 [facility] Comment on above: Order Comment: Speci men Type: BLOOD SPECIMENOrdering Facility: [facility] Address: [address] [place] [address] Performed By: #### 2 4323-8, 32467-9 ####[facility]CL[facility] [id number] [place] [address] [place] CO2 [Moles/Vol] 21 mmol/L Low 22-30 [facility] Comment on above: Order Comment: Speci men Type: BLOOD SPECIMENOrdering Facility: [facility] Address: [address] [place] [address] Performed By: #### 2 4323-8, 03482-0 ####[facility]CLIA [id number] [place] [address] [place] Creatinine [Mass/Vol] 0.85 mg/dL Normal 0.58-0.96 [facility] Comment on above: Order Comment: Speci men Type: BLOOD SPECIMENOrdering Facility: [facility] Address: [address] [place] [address] Performed By: #### 2 4323-8, 95827-2 ####[facility]CLIA [id number] [place] [address] [place] Creatinine and Glomerular filtration rate.predicted panel (S/P/Bld) 72 mL/min/1.73m??? Normal >=60 [facility] Comment on above: Order Comment: Niranjan donaldson Type: BLOOD SPECIMENOrdering Facility: [facility] Address: [address] [place] [address] Result Comment: Tika mated Glomerular Filtration Rate (eGFR) is calculated using the 2020 CKD-EPI creatinine equation. This equation utilizes serum creatinine, sex, and age as parameters. The creatinine assay has traceable calibration to isotope dilution-mass spectrometry. Refer to KDIGO guidelines for clinical interpretation. In patients with unstable renal function, e.g. those with acute kidney injury, the eGFR may not accurately reflect actual GFR. Performed By: #### 2 4323-8, 56250-0 ####[facility]CLIA [id number] [place] [address] [place] Glucose [Mass/Vol] 96 mg/dL Normal 74-99 [facility] Comment on above: Order Comment: Niranjan donaldson Type: BLOOD SPECIMENOrdering Facility: [facility] Address: [address] [place] [address] Result Comment: The [place] Diabetes [employer] (ADA) provides guidance for cutoff values for fasting glucose and random glucose. The ADA defines fasting as no caloric intake for at least 8 hours. Fasting plasma glucose results between 100 to 125 mg/dL indicate increased risk for diabetes (prediabetes). Fasting plasma glucose results greater than or equal to 126 mg/dL meet the criteria for diagnosis of diabetes. In the absence of unequivocal hyperglycemia, results should be confirmed by repeat testing. In a patient with classic symptoms of hyperglycemia or hyperglycemic crisis, random plasma glucose results greater than or equal to 200 mg/dL meet the criteria for diagnosis of diabetes. Reference: Standards of Medical Care in Diabetes 2016, [place] [employer]. Diabetes Care. 2016.39(Suppl 1). Performed By: #### 2 4323-8, 35724-3 ####[facility]CLIA [id number] [place] [address] [place] Potassium [Moles/Vol] 4.4 mmol/L Normal 3.7-5.1 [facility] Comment on above: Order Comment: Speci men Type: BLOOD SPECIMENOrdering Facility: [facility] Address: [address] [place] [id number] Performed By: #### 2 4323-8, 14946-3 ####[facility]CL[facility] [id number] [place] [address] [place] Protein [Mass/Vol] 7.0 g/dL Normal 6.3-8.0 [facility] Comment on above: Order Comment: Speci men Type: BLOOD SPECIMENOrdering Facility: [facility] Address: [address] [place] [address] Performed By: #### 2 4323-8, 05106-9 ####[facility]CLIA [id number] [place] [address] [place] Sodium [Moles/Vol] 142 mmol/L Normal 136-144 [facility] Comment on above: Order Comment: Speci men Type: BLOOD SPECIMENOrdering Facility: [facility] Address: [address] [place] [address] Performed By: #### 2 4323-8, 43221-4 ####[facility]CL[facility] [id number] [place] [address] [place] Urea nitrogen [Mass/Vol] 14 mg/dL Normal 7-21 [facility] Comment on above: Order Comment: Speci men Type: BLOOD SPECIMENOrdering Facility: [facility] Address: [address] [place] [address] Performed By: #### 2 4323-8, 61667-3 ####[facility]CLIA [id number] [place] [address] [place] Lipid 1996 panelon 4 Cholesterol [Mass/Vol] 162 mg/dL Normal <200 [facility] Comment on above: Order Comment: Speci men Type: BLOOD SPECIMENOrdering Facility: [facility] Address: [address] [place] [address] Result Comment: <200 mg/dL, Desirable 200-239 mg/dL, Borderline high >239 mg/dL, High Performed By: #### 2 4323-8, 06134-1 ####[facility]CL[facility] [id number] [address] [place] Cholesterol in HDL [Mass/Vol] 57 mg/dL Normal >39 [facility] Comment on above: Order Comment: Niranjan men Type: BLOOD SPECIMENOrdering Facility: [facility] Address: [address] [place] [address] Result Comment: 40-5 9 mg/dL, Acceptable >59 mg/dL, High: Negative risk factor for coronary heart disease <40 mg/dL, Low: Positive risk factor for coronary heart disease Performed By: #### 2 4323-8, 81901-6 ####[facility]CLIA [id number] [address] [place] [facility] Cholesterol in LDL [Mass/Vol] 91 mg/dL Normal <100 [facility] Comment on above: Order Comment: Niranjan donaldson Type: BLOOD SPECIMENOrdering Facility: [facility] Address: [address] [place] [address] Result Comment: <100 mg/dL, Optimal 100-129 mg/dL, Near optimal/above optimal 130-159 mg/dL, Borderline high 160-189 mg/dL, High >189 mg/dL, Very high Secondary prevention optimal LDL Cholesterol levels are recommended to be < 70 mg/dL Performed By: #### 2 4323-8, 75633-8 ####[facility]CL[facility] [id number] [address] [place] Cholesterol in LDL/Cholesterol in HDL [Mass ratio] 1.60 {ratio} Normal <2.54 [facility] Comment on above: Order Comment: Niranjan donaldson Type: BLOOD SPECIMENOrdering Facility: [facility] Address: [address] [place] [address] Result Comment: Refe rence: 1. National Cholesterol Education Program ATP III Guideline At-A-Glance Quick Desk Reference: National Heart, Lung, and Blood [place]. National Institutes of Health. 2001: NIH Publication No. 01-3305. 2. An International Atherosclerosis Society position paper: global recommendations for the management of dyslipidemia: executive summary, Atherosclerosis. 2014: 232(2):410-413. Performed By: #### 2 4323-8, 43199-0 ####[facility] LABCLIA [id number] [facility] [address] [place] Cholesterol in VLDL [Mass/Vol] 14 mg/dL Normal <30 [facility] Comment on above: Order Comment: Speci men Type: BLOOD SPECIMENOrdering Facility: [facility] Address: [address] [place] [address] Performed By: #### 2 4328, 76056-7 ####[facility]CLIA [id number] [place] [address] [place] Cholesterol non HDL [Mass/Vol] 105 mg/dL Normal <130 [facility] Comment on above: Order Comment: Speci men Type: BLOOD SPECIMENOrdering Facility: [facility] Address: [address] [place] [address] Result Comment: <130 mg/dL, Optimal 130-159 mg/dL, Near optimal/above optimal 160-189 mg/dL, Borderline high 190-219 mg/dL, High >219 mg/dL, Very high Secondary prevention optimal non HDL Cholesterol levels are recommended to be <100 mg/dL Performed By: #### 2 4323-02, 71662-2 ####[facility]CL[facility] [id number] [place] [address] [place] Cholesterol.total/Chol esterol in HDL [Mass ratio] 2.84 {ratio} Normal <5.10 [facility] Comment on above: Order Comment: Navneeti men Type: BLOOD SPECIMENOrdering Facility: [facility] Address: [address] [place] [address] Performed By: #### 2 4323-8, 79443-5 ####[facility]CL[facility] [id number] [address] [place] FASTING TIME 12 hrs Normal [facility] Comment on above: Order Comment: Speci men Type: BLOOD SPECIMENOrdering Facility: [facility] Address: [address] [place] [address] Performed By: #### 2 4323-8, 29976-6 ####[facility]CLIA [id number] [address] [place] Triglyceride [Mass/Vol] 70 mg/dL Normal <150 [facility] Comment on above: Order Comment: Speci men Type: BLOOD SPECIMENOrdering Facility: [facility] Address: [address] [place] [address] Result Comment: <150 mg/dL, Normal 150-199 mg/dL, Borderline high 200-499 mg/dL, High >499 mg/dL, Very high Performed By: #### 2 4323-8, 83829-6 ####[facility] LABCLIA [id number] [address] [place] XR Ribs - right Views and Ch est PAon 10-10-2023 IMPRESSION: No acute radiographic abnormality. Rn Urology: ERMIAS Transcribe Date/Time: Oct 10 2023 8:26A Dictated by : MARYLOU HWANG MD This examination was interpreted and the report reviewed and electronically signed by: MARYLOU HWANG MD on Oct 10 2023 8:29AM [facility] DIVISION OF RADIOLOGY * * *Final Report* * * DATE OF EXAM: Oct 10 2023 8:16AM WOX [id number] - XR RIB/CHST 3V AP RIB/OBL/CHST R / PROCEDURE REASON: Rib pain on right side * * * * Physician Interpretation * * * * EXAMINATION: X-ray chest and right ribs Clinical History: Rib pain on right side M: XC1_4 Comparison: Chest x-ray 08/29/2018 RESULT: Lines, tubes, and devices: None. Lungs and pleura: No consolidation. No lung mass. No pleural effusion. Cardiomediastinal silhouette: Normal cardiomediastinal silhouette. Musculoskeletal: No acute fracture DIVISION OF RADIOLOGY Provider, [facility] [place] - 10/10/2023 * * *Final Report* * * DATE OF EXAM: Oct 10 2023 8:16AM WOX [id number] - XR RIB/CHST 3V AP RIB/OBL/CHST R / PROCEDURE REASON: Rib pain on right side * * * * Physician Interpretation * * * * EXAMINATION: X-ray chest and right ribs Clinical History: Rib pain on right side M: XC1_4 Comparison: Chest x-ray 08/29/2018 RESULT: Lines, tubes, and devices: None. Lungs and pleura: No consolidation. No lung mass. No pleural effusion. Cardiomediastinal silhouette: Normal cardiomediastinal silhouette. Musculoskeletal: No acute fracture IMPRESSION IMPRESSION: No acute radiographic abnormality. Rn Urology: ERMIAS Transcribe Date/Time: Oct 10 2023 8:26A Dictated by : MARYLOU HWANG MD This examination was interpreted and the report reviewed and electronically signed by: MARYLOU HWANG MD on Oct 10 2023 8:29AM EST [facility] Radiology Study observation (narrative) [facility] XR Ribs - right Views and Ch est PAOrdered By: [facility] Provider on 10-10-2023 [facility] Cytology report of Body flui d Cyto stainOrdered By: Diane Pacheco on 01-04-2023 Cytology report Cyto stain Doc (Body fld) SEE PATHOLOGY REPORT [facility] Comment on above: Specimen submitted t o Anatomical Pathology Department for testing. Basophil percentageOrdered B y: Dr. Pacheco on 12-15-2022 Chloride [Moles/Vol] 111 mmol/L 98-107 [facility] Glucose [Mass/Vol] 99 mg/dL 74-106 [facility] Potassium [Moles/Vol] 3.9 mmol/L 3.5-5.1 [facility] Sodium [Moles/Vol] 140 mmol/L 136-145 [facility] Laboratory - Chemistry and C hemistry - challengeOrdered By: Dr. Pacheco on 12-15-2022 CO2 [Moles/Vol] 25.0 mmol/L 21.0-32.0 [facility] Urea nitrogen/Creatinine [Mass ratio] 27.5 mg/mg 10-20 [facility] No Panel InformationOrdered By: Dr. Pacheco on 12-15-2022 Estimated GFR (MDRD) Amer 101 mL/min >60 [facility] Comment on above: GFR Calc Estimated GFR (MDRD) Non-Af Amer 83 mL/min >60 [facility] Comment on above: Non- GFR Calc Serum or plasma calcium lucian urement (mass/volume)Ordered By: Dr. Pacheco on 12-15-2022 Calcium [Mass/Vol] 9.6 mg/dL 8.5-10.1 [facility] Serum or plasma creatinine m easurement (mass/volume)Ordered By: Dr. Pacheco on 12-15-2022 Creatinine [Mass/Vol] 0.73 mg/dL 0.55-1.02 [facility] Comment on above: The validity of the calculated GFR & GFRAA in patients over 70 years has not been determined. Clinical correlation is essential. Serum or plasma urea nitroge n measurement (mass/volume)Ordered By: Dr. Pacheco on 12-15-2022 Urea nitrogen [Mass/Vol] 20 mg/dL 7-18 [facility] Thin prep Papanicolaou smear with manual screeningOrdered By: Dr. Pacheco on 12-15-2022 Thin prep Papanicolaou smear with manual screening 4 5-15 [facility] UA DIP, URINE (POC)on 2022 BILIRUBIN UA (POCT) Negative Negative [facility] CLARITY UA (POCT) [facility] COLOR UA (POCT) Yellow [facility] GLUCOSE UA (POCT) Negative Negative mg/dL [facility] HEMOGLOBIN/BLOOD UA (POCT) Trace-lysed Abnormal Negative [facility] KETONE UA (POCT) Negative Negative mg/dL [facility] LEUKOCYTES UA (POCT) Negative Negative [facility] NITRITE UA (POCT) Negative Negative [facility] PH UA (POCT) 5.5 4.5 - 8.0 [facility] Protein Ql (U) Negative Negative mg/dL [facility] SPECIFIC GRAVITY UA (POCT) 1.020 1.005 - 1.030 [facility] UROBILINOGEN UA (POCT) 0.2 E.U./dL Nelly l E.U./dL [facility] XR LUMBAR GENERAL 3V AP/LAT/ L5-S1on 12-13-2022 [facility] XR Lumbar spine 3 Viewson IMPRESSION: No acute fracture. Degenerative disease of the lumbar spine. Rn Urology: ERMIAS Transcribe Date/Time: Dec 13 2022 10:24A Dictated by : MARYLOU HWANG MD This examination was interpreted and the report reviewed and electronically signed by: MARYLOU HWANG MD on Dec 13 2022 10:26AM [facility] DIVISION OF RADIOLOGY * * *Final Report* * * DATE OF EXAM: Dec 13 2022 10:14AM WOX 5228 - XR LUMBAR 3V AP/LAT/L5-S1 / PROCEDURE REASON: Acute bilateral low back pain without sciatica * * * * Physician Interpretation * * * * X-ray lumbosacral spine, AP, lateral and L5-S1 views Indication: Low back pain Comparison: None Counting reference: Lumbosacral junction. For the purposes of this report, L5S1 is considered the last lumbar type disc space and L4-5 is considered the level of the iliac crest. No acute fracture. Grade 1 anterolisthesis of L4 on L5. There is degenerative disc disease at multiple levels of the lumbar spine with endplate sclerosis, intervertebral disc space narrowing and osteophyte formation. There is facet joint degenerative disease from L3 through S1. Sacroiliac joints appear normal. DIVISION OF RADIOLOGY Provider, [facility] Stevie [facility] - 12/13/2022 * * *Final Report* * * DATE OF EXAM: Dec 13 2022 10:14AM WOX 5228 - XR LUMBAR 3V AP/LAT/L5-S1 / PROCEDURE REASON: Acute bilateral low back pain without sciatica * * * * Physician Interpretation * * * * X-ray lumbosacral spine, AP, lateral and L5-S1 views Indication: Low back pain Comparison: None Counting reference: Lumbosacral junction. For the purposes of this report, L5S1 is considered the last lumbar type disc space and L4-5 is considered the level of the iliac crest. No acute fracture. Grade 1 anterolisthesis of L4 on L5. There is degenerative disc disease at multiple levels of the lumbar spine with endplate sclerosis, intervertebral disc space narrowing and osteophyte formation. There is facet joint degenerative disease from L3 through S1. Sacroiliac joints appear normal. IMPRESSION IMPRESSION: No acute fracture. Degenerative disease of the lumbar spine. Rn Urology: ERMIAS Transcribe Date/Time: Dec 13 2022 10:24A Dictated by : MARYLOU HWANG MD This examination was interpreted and the report reviewed and electronically signed by: MARYLOU HWANG MD on Dec 13 2022 10:26AM EST [facility] Radiology Study observation (narrative) [facility] XR Lumbar spine 3 ViewsOrder ed By: Ccf Provider on 12-13-2022 [facility] HARSHIL SCREENINGon 06-23-2022 [facility] XR SHOULDER GENERAL 3V OR MO RE AP/TRUE AP/OTHER LEFTon 12-10-2021 [facility] XR Shoulder - left 3 Viewson 12-10-2021 IMPRESSION: Moderate glenohumeral osteoarthritis with joint bodies. Rn Urology: ERMIAS Transcribe Date/Time: Dec 10 2021 12:20P Dictated by : ELLIOTT GAMEZ DO This examination was interpreted and the report reviewed and electronically signed by: ELLIOTT GAMEZ DO on Dec 10 2021 12:25PM EST [id number] SE_DIVISION OF RADIOLOGY * * *Final Report* * * DATE OF EXAM: Dec 10 2021 10:02AM WOX 5252 - XR SHLDR >/=3V AP/GARRETT AP/OTHR LT / PROCEDURE REASON: Impingement syndrome of left shoulder * * * * Physician Interpretation * * * * EXAMINATION: XR SHLDR >/=3V AP/GARRETT AP/OTHR LT PATIENT/TECHNOLOGIST PROVIDED HISTORY: pain for a few months in ac joint and upper left arm no inj CLINICAL INFORMATION: 70 years old Female with Impingement syndrome of left shoulder TECHNIQUE: XR SHLDR >/=3V AP/GARRETT AP/OTHR LT Laterality: LEFT Number of different views (projections): 3 COMPARISON: Radiographs 07/31/2019 RESULT: Moderate glenohumeral osteoarthritis with prominent osteophytes and inferior glenohumeral joint space narrowing. Mild degenerative change acromioclavicular joint. 7 mm and adjacent 6 mm joint bodies in the infracoracoid region. Acromiohumeral interval is maintained. Chronic reactive changes at the greater tuberosity. No fracture. Degenerative changes in the cervicothoracic spine. Dense atherosclerotic calcification of the aortic arch. Calcified bilateral hilar nodes and calcified granuloma in the LEFT lower lung consistent with remote granulomatous disease. [id number] SE_DIVISION OF RADIOLOGY Provider, Daniel Hubbard [facility] - 12/10/2021 * * *Final Report* * * DATE OF EXAM: Dec 10 2021 10:02AM WOX 5252 - XR SHLDR >/=3V AP/GARRETT AP/OTHR LT / PROCEDURE REASON: Impingement syndrome of left shoulder * * * * Physician Interpretation * * * * EXAMINATION: XR SHLDR >/=3V AP/GARRETT AP/OTHR LT PATIENT/TECHNOLOGIST PROVIDED HISTORY: pain for a few months in ac joint and upper left arm no inj CLINICAL INFORMATION: 70 years old Female with Impingement syndrome of left shoulder TECHNIQUE: XR SHLDR >/=3V AP/GARRETT AP/OTHR LT Laterality: LEFT Number of different views (projections): 3 COMPARISON: Radiographs 07/31/2019 RESULT: Moderate glenohumeral osteoarthritis with prominent osteophytes and inferior glenohumeral joint space narrowing. Mild degenerative change acromioclavicular joint. 7 mm and adjacent 6 mm joint bodies in the infracoracoid region. Acromiohumeral interval is maintained. Chronic reactive changes at the greater tuberosity. No fracture. Degenerative changes in the cervicothoracic spine. Dense atherosclerotic calcification of the aortic arch. Calcified bilateral hilar nodes and calcified granuloma in the LEFT lower lung consistent with remote granulomatous disease. IMPRESSION IMPRESSION: Moderate glenohumeral osteoarthritis with joint bodies. Rn Urology: PSCB Transcribe Date/Time: Dec 10 2021 12:20P Dictated by : ELLIOTT GAMEZ DO This examination was interpreted and the report reviewed and electronically signed by: ELLIOTT GAMEZ DO on Dec 10 2021 12:25PM [facility] Radiology Study observation (narrative) [facility] XR Shoulder - left 3 ViewsOr dered By: Ccf Provider on 12-10-2021 [facility] Basophil percentageon 2021 WBC (Bld) [#/Vol] 9.1 10*3/uL 4.4-11.0 [facility] Work Phone: Blood erythrocytes count (nu mber/volume)on 10-14-2021 RBC (Bld) [#/Vol] 4.61 10*6/uL 4.2-5.4 [facility] Work Phone: Blood hemoglobin measurement (mass/volume)on 10-14-2021 Hemoglobin (Bld) [Mass/Vol] 13.3 g/dL 12.0-15.0 [facility] Work Phone: Blood platelet mean volumeon 10-14-2021 Platelet mean volume (Bld) [Entitic vol] 9.3 fL 6.2-12.0 [facility] Work Phone: Determination of erythrocyte mean corpuscular volume (MCV)on 10-14-2021 MCV (RBC) [Entitic vol] 85.7 fL 81-99 [facility] Work Phone: Hematocrit Auto (Bld) [Volum e fraction]on 10-14-2021 Hematocrit (Bld) [Volume fraction] 39.5 % 37-47 [facility] Work Phone: Laboratory - Hematology and Cell countson 10-14-2021 Erythrocyte distribution width (RBC) [Entitic vol] 39.9 fL 35.1-43.9 [facility] Work Phone: Erythrocyte distribution width (RBC) [Ratio] 12.9 % 11.6-14.6 [facility] Work Phone: [phone] MCH (RBC) [Entitic mass] 28.9 pg 27.0-32.0 [facility] Work Phone: MCHC Auto (RBC) [Mass/Vol]on 10-14-2021 MCHC (RBC) [Mass/Vol] 33.7 g/dL 32-36 [facility] Work Phone: Platelets bldon 10-14-2021 Platelets (Bld) [#/Vol] 286 10*3/uL 150-450 [facility] Work Phone: No Panel Informationon 10-07 Miscellaneous Test Comment MAILED SPECIMEN [facility] Work Phone: Basophil percentageon 2021 Creatinine [Mass/Vol] 0.6 mg/dL 0.55-1.02 [facility] Work Phone: No Panel Informationon 09-23 Bedside Estimated GFR (eGFR) > 60.0000 mL/min >60 [facility] Work Phone: XR Knee - left AP and Latera mariama 02-03-2021 IMPRESSION: Osteoarthrosis of the left knee. Knee joint effusion. Rn Urology: PSCChris Transcribe Date/Time: Feb 03 2021 3:18P Dictated by : SILVIO STINSON MD This examination was interpreted and the report reviewed and electronically signed by: SILVIO STINSON MD on Feb 03 2021 3:18PM [facility] DIVISION OF RADIOLOGY * * *Final Report* * * DATE OF EXAM: Feb 03 2021 9:49AM WOX 5206 - XR KNEE 2V AP/LAT LT / PROCEDURE REASON: Acute pain of left knee * * * * Physician Interpretation * * * * Left knee radiographs HISTORY: 70 years old Clinical information: Acute pain of left knee Anterior to lateral left knee pain x 5 days following a fall TECHNIQUE: Images: XR KNEE 2V AP/LAT LT Comparison: None. RESULT: Findings: Narrowing of medial compartment joint space. Marginal osteophyte extending off tibial plateaus, femoral condyles, and posterior aspect of the patella. No fracture or dislocation. Knee joint effusion. DIVISION OF RADIOLOGY Provider, [facility] - 02/03/2021 * * *Final Report* * * DATE OF EXAM: Feb 03 2021 9:49AM WOX 5206 - XR KNEE 2V AP/LAT LT / PROCEDURE REASON: Acute pain of left knee * * * * Physician Interpretation * * * * Left knee radiographs HISTORY: 70 years old Clinical information: Acute pain of left knee Anterior to lateral left knee pain x 5 days following a fall TECHNIQUE: Images: XR KNEE 2V AP/LAT LT Comparison: None. RESULT: Findings: Narrowing of medial compartment joint space. Marginal osteophyte extending off tibial plateaus, femoral condyles, and posterior aspect of the patella. No fracture or dislocation. Knee joint effusion. IMPRESSION IMPRESSION: Osteoarthrosis of the left knee. Knee joint effusion. Rn Urology: ERMIAS Transcribe Date/Time: Feb 03 2021 3:18P Dictated by : SILVIO STINSON MD This examination was interpreted and the report reviewed and electronically signed by: SILVIO STINSON MD on Feb 03 2021 3:18PM EST [facility] Radiology Study observation (narrative) [facility] XR Knee - left AP and Latera lOrdered By: Ccf Provider on 02-03-2021 [facility] XR Knee - left 4 Viewson IMPRESSION: No acute fracture, malalignment or joint effusion. Rn Urology: ERMIAS Transcribe Date/Time: Jun 18 2020 6:40P Dictated by : ALEKSANDR MCDONALD MD This examination was interpreted and the report reviewed and electronically signed by: ALEKSANDR MCDONALD MD on Jun 18 2020 6:42PM [facility] DIVISION OF RADIOLOGY * * *Final Report* * * DATE OF EXAM: Jun 18 2020 6:37PM WOX 5202 - XR KNEE 4V AP/PA BOTH+LAT/ALYSA LT / PROCEDURE REASON: Knee injuries, left, initial encounter * * * * Physician Interpretation * * * * LEFT KNEE X-RAY SERIES CLINICAL HISTORY: Knee injury, left TECHNIQUE: Bilateral AP and intercondylar and sunrise views. Left lateral view. COMPARISON: None available. RESULT: No acute fracture or significant malalignment. No joint fluid in the lateral projection. Tricompartmental degenerative changes of the left knee joint. Bilateral sunrise views show symmetric lateral subluxation of the patella relative to the intercondylar fossa. DIVISION OF RADIOLOGY [facility] * * *Final Report* * * DATE OF EXAM: Jun 18 2020 6:37PM WOX 5202 - XR KNEE 4V AP/PA BOTH+LAT/ALYSA LT / PROCEDURE REASON: Knee injuries, left, initial encounter * * * * Physician Interpretation * * * * LEFT KNEE X-RAY SERIES CLINICAL HISTORY: Knee injury, left TECHNIQUE: Bilateral AP and intercondylar and sunrise views. Left lateral view. COMPARISON: None available. RESULT: No acute fracture or significant malalignment. No joint fluid in the lateral projection. Tricompartmental degenerative changes of the left knee joint. Bilateral sunrise views show symmetric lateral subluxation of the patella relative to the intercondylar fossa. IMPRESSION IMPRESSION: No acute fracture, malalignment or joint effusion. Rn Urology: ERMIAS Transcribe Date/Time: Jun 18 2020 6:40P Dictated by : ALEKSANDR MCDONALD MD This examination was interpreted and the report reviewed and electronically signed by: ALEKSANDR MCDONALD MD on Jun 18 2020 6:42PM EST [facility] Radiology Study observation (narrative) [facility] XR Knee - left 4 ViewsOrdere d By: Ccf Provider on 06-18-2020 [facility] Vital Signs Date Time Vital Sign Value Performing Clinician Torin samuels 02-01-2025 10:20-0400 Body height 144.[address] Hugo Ro MD Work Phone: [facility] 02-01-2025 10:20-0400 Body mass index (BMI) [Ratio] 32.2 kg/m2 Dr. Hugo Ro MD Work Phone: [facility] 02-01-2025 10:20-0400 Body weight 67.[address] Hugo Ro MD Work Phone: [facility] 02-01-2025 10:20-0400 Diastolic blood pressure 56 mm[Hg] Dr. Hugo Ro MD Work Phone: [facility] 02-01-2025 10:20-0400 Respiratory rate 16 /min Dr. Hugo Ro MD Work Phone: [facility] 02-01-2025 10:20-0400 Systolic blood pressure 130 mm[Hg] Dr. Hugo Ro MD Work Phone: [facility] 01-25-2025 09:01-0400 Body height 144.[address] Hugo Ro MD Work Phone: [facility] 01-25-2025 09:01-0400 Body mass index (BMI) [Ratio] 32.1 kg/m2 Dr. Hugo Ro MD Work Phone: [facility] 01-25-2025 09:01-0400 Body weight 67.[address] Hugo Ro MD Work Phone: [facility] 01-25-2025 09:01-0400 Diastolic blood pressure 81 mm[Hg] Dr. Hugo Ro MD Work Phone: [facility] 01-25-2025 09:01-0400 Systolic blood pressure 127 mm[Hg] Dr. Hugo Ro MD Work Phone: [facility] 09-10-2024 12:36-0500 Body height 143 cm Marivel Yvonne [employer]ING [employer] Work Phone: [facility] 09-10-2024 12:36-0500 Body mass index (BMI) [Ratio] 32.62 kg/m2 Marivel Yvonne [employer]ING [employer] WORK[employer] Work Phone: [facility] 09-10-2024 12:36-0500 Body weight 66.7 kg Marivel Yvonne [employer]ING METAL WORKER.[employer] Work Phone: [facility] 09-10-2024 12:36-0500 Diastolic blood pressure 80 mm[Hg] Marivel Yvonne [employer]ING MET[employer] WORKER.[employer] Work Phone: [facility] 09-10-2024 12:36-0500 Heart rate 84 /min Marivel Yvonne [employer]ING MET[employer] WORKER.[employer] Work Phone: [facility] 09-10-2024 12:36-0500 Respiratory rate 12 /min Marivel Yvonne [employer]ING [employer] WORKER.[employer] Work Phone: [facility] 09-10-2024 12:36-0500 SaO2% (BldA) [Mass fraction] 96 % Marivel Yvonne [employer]ING [employer] WORKER.[employer] Work Phone: [facility] 09-10-2024 12:36-0500 Systolic blood pressure 132 mm[Hg] Marivel Yvonne [employer]ING [employer] WORKER.[employer] Work Phone: [facility] 08-16-2024 10:30-0500 Body mass index (BMI) [Ratio] 32.82 kg/m2 Hugo Ro MD Work Phone: [facility] 08-16-2024 10:30-0500 Body temperature 98.01 [degF] Hugo Ro MD Work Phone: [facility] 08-16-2024 10:30-0500 Body weight 66.4 kg Huog Ro MD Work Phone: [facility] 08-16-2024 10:30-0500 Diastolic blood pressure 62 mm[Hg] Hugo Ro MD Work Phone: [facility] 08-16-2024 10:30-0500 Heart rate 84 /min Hugo Ro MD Work Phone: [facility] 08-16-2024 10:30-0500 Respiratory rate 20 /min Hugo Ro MD Work Phone: [facility] 08-16-2024 10:30-0500 Systolic blood pressure 118 mm[Hg] Hugo oR MD Work Phone: [facility] 08-13-2024 17:55-0500 Body mass index (BMI) [Ratio] 33.41 kg/m2 Maurice Kaur APRN.[employer] Work Phone: [facility] 08-13-2024 17:55-0500 Body temperature 100.4 [degF] Maurice Kaur APRN.[employer] Work Phone: [facility] 08-13-2024 17:55-0500 Body weight 67.6 kg Maurice Kaur APRN.[employer] Work Phone: [facility] 08-13-2024 17:55-0500 Diastolic blood pressure 76 mm[Hg] Maurice Kaur APRN.[employer] Work Phone: [facility] 08-13-2024 17:55-0500 Heart rate 94 /min Maurice Kaur APRN.[employer] Work Phone: [facility] 08-13-2024 17:55-0500 Respiratory rate 20 /min Maurice Kaur APRN.[employer] Work Phone: [facility] 08-13-2024 17:55-0500 SaO2% (BldA) [Mass fraction] 96 % Maurice Kaur APRN.[employer] Work Phone: [facility] 08-13-2024 17:55-0500 Systolic blood pressure 120 mm[Hg] Maurice Kaur APRN.[employer] Work Phone: [facility] 05-11-2024 08:20-0400 Body mass index (BMI) [Ratio] 32.97 kg/m2 Hugo Ro MD Work Phone: [facility] 05-11-2024 08:20-0400 Body weight 66.7 kg Hugo Ro MD Work Phone: [facility] 05-11-2024 08:20-0400 Diastolic blood pressure 72 mm[Hg] Hugo Ro MD Work Phone: [facility] 05-11-2024 08:20-0400 Heart rate 83 /min Hugo Ro MD Work Phone: [facility] 05-11-2024 08:20-0400 SaO2% (BldA) [Mass fraction] 97 % Hugo Ro MD Work Phone: [facility] 05-11-2024 08:20-0400 Systolic blood pressure 126 mm[Hg] Hugo Ro MD Work Phone: [facility] 04-27-2024 13:48-0400 Body height 142.2 cm Hugo Ro MD Work Phone: [facility] 04-27-2024 13:48-0400 Body mass index (BMI) [Ratio] 31.88 kg/m2 Hugo Ro MD Work Phone: [facility] 04-27-2024 13:48-0400 Body temperature 98.8 [degF] Hugo Ro MD Work Phone: [facility] 04-27-2024 13:48-0400 Body weight 64.5 kg Hugo Ro MD Work Phone: [facility] 04-27-2024 13:48-0400 Diastolic blood pressure 62 mm[Hg] Hugo Ro MD Work Phone: [facility] 04-27-2024 13:48-0400 Heart rate 88 /min Hugo Ro MD Work Phone: [facility] 04-27-2024 13:48-0400 Respiratory rate 18 /min Hugo Ro MD Work Phone: [facility] 04-27-2024 13:48-0400 SaO2% (BldA) [Mass fraction] 94 % Hugo Ro MD Work Phone: [facility] 04-27-2024 13:48-0400 Systolic blood pressure 132 mm[Hg] Hugo Ro MD Work Phone: [facility] 04-19-2024 17:02-0400 Body mass index (BMI) [Ratio] 31.79 kg/m2 Francine Moomaw [employer]ING [employer] Work Phone: [facility] 04-19-2024 17:02-0400 Body temperature 98.8 [degF] Francine Moomaw [employer]IN[employer]ING METAL WORKER.[employer] Work Phone: [facility] 04-19-2024 17:02-0400 Body weight 65 kg Francine Moomaw [employer]ING METAL WORKER.[employer] Work Phone: [facility] 04-19-2024 17:02-0400 Diastolic blood pressure 78 mm[Hg] Francine Moomaw REIN[employer]ING METAL WORKER.[employer] Work Phone: [facility] 04-19-2024 17:02-0400 Heart rate 88 /min Francine Moomaw REIN[employer]ING METAL WORKER.[employer] Work Phone: [facility] 04-19-2024 17:02-0400 Respiratory rate 22 /min Francine Moomaw REIN[employer]ING METAL WORKER.[employer] Work Phone: [facility] 04-19-2024 17:02-0400 SaO2% (BldA) [Mass fraction] 99 % Francine Paulomaw REIN[employer]CING METAL WORKER.[employer] Work Phone: [facility] 04-19-2024 17:02-0400 Systolic blood pressure 142 mm[Hg] Francine Callaway [employer]ING METAL WORKER.[employer] Work Phone: [facility] 01-18-2024 10:39-0400 Body mass index (BMI) [Ratio] 31.5 kg/m2 Hugo Ro MD Work Phone: [facility] 01-18-2024 10:39-0400 Body temperature 98.01 [degF] Hugo Ro MD Work Phone: [facility] 01-18-2024 10:39-0400 Body weight 64.41 kg Hugo Ro MD Work Phone: [facility] 01-18-2024 10:39-0400 Diastolic blood pressure 74 mm[Hg] Hugo Ro MD Work Phone: [facility] 01-18-2024 10:39-0400 Heart rate 84 /min Hugo Ro MD Work Phone: [facility] 01-18-2024 10:39-0400 Respiratory rate 18 /min Hugo Ro MD Work Phone: [facility] 01-18-2024 10:39-0400 Systolic blood pressure 120 mm[Hg] Hugo Ro MD Work Phone: [facility] 10-10-2023 07:32-0400 Body temperature 97.81 [degF] Latisha Athy PA-C Work Phone: [facility] 10-10-2023 07:32-0400 Body weight 72.1 kg Latisha Athy PA-C Work Phone: [facility] 10-10-2023 07:32-0400 Diastolic blood pressure 72 mm[Hg] Latisha Athy PA-C Work Phone: [facility] 10-10-2023 07:32-0400 Heart rate 84 /min Latisha Athy PA-C Work Phone: [facility] 10-10-2023 07:32-0400 Respiratory rate 18 /min Latisha Athy PA-C Work Phone: [facility] 10-10-2023 07:32-0400 SaO2% (BldA) [Mass fraction] 97 % Latisha Athy PA-C Work Phone: [facility] 10-10-2023 07:32-0400 Systolic blood pressure 122 mm[Hg] Latisha Athy PA-C Work Phone: [facility] 12-27-2022 17:46-0400 Diastolic blood pressure 77 mm[Hg] Hugo Ro MD Work Phone: [facility] 12-27-2022 17:46-0400 Heart rate 81 /min Hugo Ro MD Work Phone: [facility] 12-27-2022 17:46-0400 Systolic blood pressure 121 mm[Hg] Hugo Ro MD Work Phone: [facility] 12-27-2022 17:42-0400 Body temperature 99.1 [degF] Hugo Ro MD Work Phone: [facility] 12-27-2022 17:42-0400 Body weight 69.85 kg Hugo Ro MD Work Phone: [facility] 12-13-2022 09:39-0400 Body temperature 98.6 [degF] Latisha Athy PA-C Work Phone: [facility] 12-13-2022 09:39-0400 Body weight 68.04 kg Latisha Athy PA-C Work Phone: [facility] 12-13-2022 09:39-0400 Diastolic blood pressure 80 mm[Hg] Latisha Athy PA-C Work Phone: [facility] 12-13-2022 09:39-0400 Heart rate 94 /min Latisha Athy PA-C Work Phone: [facility] 12-13-2022 09:39-0400 Respiratory rate 21 /min Latisha Jansen PA-C Work Phone: [facility] 12-13-2022 09:39-0400 SaO2% (BldA) [Mass fraction] 98 % Latisha Jansen PA-C Work Phone: [facility] 12-13-2022 09:39-0400 Systolic blood pressure 124 mm[Hg] Latisha Jansen PA-C Work Phone: [facility] 09-21-2022 12:32-0400 Body temperature 99.1 [degF] Maurice Kaur APRN.[employer] Work Phone: [facility] 09-21-2022 12:32-0400 Body weight 68.95 kg Maurice Kaur APRN.YARN HAULER Work Phone: [facility] 09-21-2022 12:32-0400 Diastolic blood pressure 82 mm[Hg] Maurice Kaur APRN.YARN HAULER Work Phone: [facility] 09-21-2022 12:32-0400 Heart rate 102 /min Maurice Kaur APRN.YARN HAULER Work Phone: [facility] 09-21-2022 12:32-0400 Respiratory rate 18 /min Maurice Kaur APRN.YARN HAULER Work Phone: [facility] 09-21-2022 12:32-0400 SaO2% (BldA) [Mass fraction] 96 % Maurice Kaur APRN.YARN HAULER Work Phone: [facility] 09-21-2022 12:32-0400 Systolic blood pressure 140 mm[Hg] Maurice Kaur APRN.YARN HAULER Work Phone: [facility] 06-29-2022 15:08-0500 Body temperature 99.5 [degF] Les Ramos APRN.YARN HAULER Work Phone: [facility] 06-29-2022 15:08-0500 Body weight 71.31 kg Les Ramos REINFORCING METAL WORKER.YARN [employer]ER Work Phone: [facility] 06-29-2022 15:08-0500 Diastolic blood pressure 80 mm[Hg] Les Pendlebury REINFORCING METAL WORKER.YARN HAULER Work Phone: [facility] 06-29-2022 15:08-0500 Heart rate 103 /[facility] REINFORCING METAL WORKER.YARN HAULER Work Phone: [facility] 06-29-2022 15:08-0500 Respiratory rate 16 /[facility]CING METAL WORKER.YARN HAULER Work Phone: [facility] 06-29-2022 15:08-0500 SaO2% (BldA) [Mass fraction] 97 % [facility] REINFORCING METAL WORKER.YARN HAULER Work Phone: [facility] 06-29-2022 15:08-0500 Systolic blood pressure 126 mm[Hg] [facility] REINFORCING METAL WORKER.YARN HAULER Work Phone: [facility] 05-24-2022 18:02-0500 Body height 142.2 cm Hugo Ro MD Work Phone: [facility] 05-24-2022 18:02-0500 Body temperature 97.3 [degF] Hugo Ro MD Work Phone: [facility] 05-24-2022 18:02-0500 Body weight 70.31 kg Hugo Ro MD Work Phone: [facility] 05-24-2022 18:02-0500 Diastolic blood pressure 74 mm[Hg] Hugo Ro MD Work Phone: [facility] 05-24-2022 18:02-0500 Heart rate 92 /min Hugo Ro MD Work Phone: [facility] 05-24-2022 18:02-0500 Respiratory rate 20 /min Hugo Ro MD Work Phone: [facility] 05-24-2022 18:02-0500 Systolic blood pressure 124 mm[Hg] Hugo Ro MD Work Phone: [facility] 2021 09:00-0400 Diastolic blood pressure 76 mm[Hg] Thaddeus Shaw PT [facility] 2021 09:00-0400 Systolic blood pressure 120 mm[Hg] Thaddeus Ronald PT [facility] 12-10-2021 08:50-0400 Body temperature 97.5 [degF] Hugo Ro MD Work Phone: [facility] 12-10-2021 08:50-0400 Body weight 72.03 kg Hugo Ro MD Work Phone: [facility] 12-10-2021 08:50-0400 Diastolic blood pressure 72 mm[Hg] Hugo Ro MD Work Phone: [facility] 12-10-2021 08:50-0400 Heart rate 92 /min Hugo Ro MD Work Phone: [facility] 12-10-2021 08:50-0400 Respiratory rate 18 /min Hugo Ro MD Work Phone: [facility] 12-10-2021 08:50-0400 Systolic blood pressure 110 mm[Hg] Hugo Ro MD Work Phone: [facility] 10-14-2021 14:49-0400 Body temperature 99.3 [degF] Dr. Hugo Ro Work Phone: [facility] Work Phone: 10-14-2021 14:49-0400 Diastolic blood pressure 68 mm[Hg] Dr. Hugo Ro Work Phone: [facility] Work Phone: 10-14-2021 14:49-0400 Heart rate 68 /min Dr. Hugo Ro Work Phone: [facility] Work Phone: 10-14-2021 14:49-0400 Respiratory rate 16 /min Dr. Hugo Ro Work Phone: [facility] Work Phone: 10-14-2021 14:49-0400 SaO2% (BldA) [Mass fraction] 93 % Dr. Hugo Ro Work Phone: [facility] Work Phone: 10-14-2021 14:49-0400 Systolic blood pressure 132 mm[Hg] Dr. Hugo Ro Work Phone: [facility] Work Phone: 10-14-2021 11:36-0400 Body height 144.[address] Hugo Ro Work Phone: [facility] Work Phone: 10-14-2021 11:36-0400 Body mass index (BMI) [Ratio] 34.3 kg/m2 Dr. Hugo Ro Work Phone: [facility] Work Phone: 10-14-2021 11:36-04[address] Body weight [address] Hugo Ro Work Phone: [facility] Work Phone: 10-07-2021 13:11-0400 Body mass index (BMI) [Ratio] 34.4 kg/m2 Dr. Hugo Ro Work Phone: [facility] Work Phone: 10-07-2021 13:11-0400 Body weight 72.[address] Hugo Ro Work Phone: [facility] Work Phone: 10-07-2021 13:11-0400 Diastolic blood pressure 80 mm[Hg] Dr. Hugo Ro Work Phone: [facility] Work Phone: 10-07-2021 13:11-0400 Systolic blood pressure 136 mm[Hg] Dr. Hugo Ro Work Phone: [facility] Work Phone: Encounters Encounter Date Encounter Type Care Provider Facility Start: 03-21-2025 ambulatory Hugo Robles ty:[facility] Start: 02-20-2025 ambulatory Hugo Ro Facili ty:[facility] Start: 02-01-2025 End: 02-01-[address] Crys Zapien MD -[facility] Work Phone: Start: 02-01-2025 End: 02-01-[address] Hugo Ro MD Work Phone: -[facility] Start: 01-25-2025 End: 01-25-[address] Hugo Ro MD Work Phone: -Laboratory Specimen Start: 01-25-2025 End: 01-25-[address] Kay Felton DO -Laboratory Specimen Work Phone: Start: 01-25-2025 Encounter for gynecological examination (general) (routine) without abnormal findings [facility] Start: 01-25-2025 End: 01-25-[address] [facility] Work Phone: Start: 01-25-2025 End: 01-25-[address] Kay Felton DO [facility] Start: 01-25-2025 End: 01-25-[address] Hugo Ro MD Work Phone: [facility] Start: 01-25-2025 End: 01-25-2025 ambulatory Hugo Ro Facility:[facility] Start: 01-08-2025 Non-patient / Non-visit Dr. Diane mcgowan MD -[facility] Work Phone: Start: 10-26-2024 End: 10-26-2024 ambulatory Thaddeus Shaw PT Work Phone: [facility] Comment on above: Acute pain of left k nee (Primary Dx) Start: 09-27-2024 End: 09-27-2024 ambulatory Thaddeus Shaw PT Work Phone: [facility] Comment on above: Acute pain of left k nee; Injury of left knee, initial encounter Start: 09-14-2024 End: 09-17-2024 Follow-up encounter Marivel Dash APRN.CNP Work Phone: [facility] [place] Comment on above: Acute pain of left k nee (Primary Dx); Injury of left knee, initial encounter Start: 09-10-2024 End: 09-10-2024 Subsequent hospital visit by physician Xr [facility] Work Phone: Radiology Comment on above: Acute pain of left k nee [M25.562] Start: 09-10-2024 End: 09-10-2024 ambulatory MARIVEL DASH Facility:[facility] Start: 09-10-2024 End: 09-10-2024 Patient encounter procedure Marivel Dash APRN.YARN HAULER Work Phone: [facility] [place] Comment on above: Medicare annual well ness visit, subsequent (Primary Dx); Urinary frequency; Acute pain of left knee; Injury of left knee, initial encounter; Essential hypertension; Anxiety; Depression, unspecified depression type Start: 08-16-2024 End: 08-16-2024 ambulatory HUGO RO Facility:[facility] Start: 08-16-2024 End: 08-16-2024 Office outpatient visit 15 minutes Hugo Ro MD Work Phone: [facility] [place] Comment on above: Right inguinal herni a (Primary Dx); Nausea and vomiting, unspecified vomiting type; Essential hypertension Start: 08-13-2024 End: 08-14-2024 Emergency department patient visit Hugo Ro Facility:[facility] Start: 08-13-2024 End: 08-13-2024 ambulatory HUGO RO Facility:[facility] Start: 08-13-2024 End: 08-13-2024 Patient encounter procedure Maurice Kaur APRN.YARN HAULER Work Phone: [facility] Comment on above: Nausea and vomiting, unspecified vomiting type (Primary Dx); Diarrhea, unspecified type Start: 08-08-2024 End: 08-08-2024 ambulatory Kaysammy Ortega Roseanne Facility:[facility] Start: 08-03-2024 End: 08-03-2024 ambulatory Kay Petersonzan Facility:[facility] Start: 07-23-2024 ambulatory Hugo Marquezi ty:[facility] Start: 06-08-2024 End: 06-08-2024 ambulatory Kay Felton Facility:[facility] Start: 05-11-2024 End: 05-11-2024 ambulatory HUGO Glover RO Facility:[facility] Start: 05-11-2024 End: 05-11-2024 Patient encounter procedure Hugo Ro MD Work Phone: [facility] [place] Comment on above: Nausea and vomiting, unspecified vomiting type (Primary Dx); Essential hypertension Start: 05-07-2024 End: 05-07-2024 ambulatory Hugo Ro Facility:[facility] Start: 05-07-2024 End: 05-07-2024 ambulatory Hugo Ro Facility:[facility] Start: 04-27-2024 End: 04-27-2024 ambulatory HUGO Glover RO Facility:[facility] Start: 04-27-2024 End: 04-27-2024 ambulatory ADALGISA RO Facility:[facility] Start: 04-27-2024 End: 04-27-2024 Office outpatient visit 25 minutes Hugo Ro MD Work Phone: [facility] [place] Comment on above: Nausea and vomiting, unspecified vomiting type (Primary Dx); Epigastric pain; Dyspnea, unspecified type; Dehydration Start: 04-19-2024 End: 04-19-2024 Subsequent hospital visit by physician Xr [facility] Work Phone: Radiology Comment on above: Nausea [R11.0] Start: 04-19-2024 End: 04-19-2024 ambulatory ADALGISABelen RO Facility:[facility] Start: 04-19-2024 End: 04-19-2024 Patient encounter procedure Francine Callaway APRN.CNP Work Phone: [facility] Comment on above: Nausea (Primary Dx) Start: 01-20-2024 ambulatory Gi Westbrook MA [facility] Start: 01-20-2024 Patient encounter procedure Gi Westbrook SVEN [facility] [place] Comment on above: Population Health Na vigation Outreach ([place] [facility]) Start: 01-18-2024 End: 01-18-2024 ambulatory HUGO RO Facility:[facility] Start: 01-18-2024 End: 01-18-2024 Patient encounter procedure Hugo Ro MD Work Phone: [facility] [place] Comment on above: Essential hypertensi on; Gastroesophageal reflux disease, unspecified whether esophagitis present; Anxiety; Depression, unspecified depression type Start: 01-05-2024 Refill Hugo short MD Work Phone: [facility] [place] Comment on above: Refill Request Start: 12-27-2023 End: 12-27-2023 ambulatory MARIVEL DASH Facility:[facility] Start: 10-10-2023 End: 10-10-2023 Subsequent hospital visit by physician Nghia [facility] Work Phone: Radiology Comment on above: Rib pain on right si de [R07.81] Start: 10-10-2023 End: 10-10-2023 Patient encounter procedure Latisha Jansen PA-C Work Phone: [place] [facility] Comment on above: Rib pain on right si de (Primary Dx) Start: 06-10-2023 ambulatory Katheryn Kaplan MA [facility] Comment on above: Population Health Na vigation Outreach (Medication adherence ) Start: 06-09-2023 ambulatory Katheryn Kaplan MA [facility] [place] Comment on above: Population Health Na vigation Outreach (Medication adherence ) Start: 04-05-2023 Refill Hugo short MD Work Phone: [facility] [place] Comment on above: Refill Request Start: 02-16-2023 End: 02-16-2023 ambulatory [facility] Work Phone: Start: 02-16-2023 End: 02-16-2023 Patient encounter procedure [facility] Work Phone: Start: 01-14-2023 End: 01-14-2023 ambulatory [facility] Work Phone: Start: 01-14-2023 End: 01-14-2023 Patient encounter procedure [facility] Work Phone: Start: 01-04-2023 End: 01-04-2023 Patient encounter procedure [facility]Labor[facility], Specimen Work Phone: Start: 12-31-2022 End: 12-31-2022 ambulatory [facility] Work Phone: Start: 12-31-2022 End: 12-31-2022 Patient encounter procedure [facility]Cat Scan, [facility] Start: 12-30-2022 Telephone encounter Hugo hammer MD Work Phone: [facility] [place] Comment on above: Orders Start: 12-27-2022 End: 12-27-2022 Patient encounter procedure Hugo Ro MD Work Phone: [facility] [place] Comment on above: Dizziness (Primary D x); Depression, unspecified depression type; Essential hypertension; Gastroesophageal reflux disease, unspecified whether esophagitis present; DESIRAE (obstructive sleep apnea) Start: 12-27-2022 ambulatory Pcp (Historical) [facility] Start: 12-24-2022 End: 12-24-2022 ambulatory [facility] Work Phone: Start: 12-24-2022 End: 12-24-2022 Patient encounter procedure [facility] Start: 12-22-2022 ambulatory Pcp (Historical) [facility] Start: 12-15-2022 End: 12-15-2022 Patient encounter procedure [facility], [place] Start: 12-14-2022 Telephone encounter Suzanne MEHTA Work Phone: [place] [facility] Comment on above: Results Start: 12-13-2022 Telephone encounter Latisha macdonald PA-C Work Phone: [place] [facility] Comment on above: Results Start: 12-13-2022 End: 12-13-2022 Subsequent hospital visit by physician Xr [facility] [place] Work Phone: Radiology Comment on above: Acute bilateral low back pain without sciatica [M54.50] Start: 12-13-2022 End: 12-13-2022 Patient encounter procedure Latisha Jansen PA-C Work Phone: [facility] Comment on above: Urinary frequency (P rimary Dx); Acute bilateral low back pain without sciatica; Microscopic hematuria Start: 11-22-2022 End: 11-22-2022 [facility] Start: 11-22-2022 [facility] Start: 09-22-2022 Telephone encounter Latisha macdonald PA-C Work Phone: [place] [facility] Comment on above: Results Start: 09-21-2022 End: 09-21-2022 Patient encounter procedure Maurice Kaur APRN.YARN HAULER Work Phone: [place] [facility] Comment on above: URI, acute (Primary Dx) Start: 06-30-2022 Telephone encounter Tayler naranjo REINFORCING METAL WORKER.YARN HAULER Work Phone: [place] [facility] Comment on above: Results Start: 06-29-2022 End: 06-29-2022 Office outpatient visit 15 minutes Les Ramos 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 METAL WORKER.YARN HAULER Work Phone: [place] [facility] Comment on above: Suspected COVID-19 v irus infection (Primary Dx) Start: 06-23-2022 End: 06-23-2022 Subsequent hospital visit by physician Screen Mammo [facility] Comment on above: Encounter for screen ing mammogram for malignant neoplasm of breast [Z12.31] Start: 05-24-2022 End: 05-24-2022 Patient encounter procedure Hugo Ro MD Work Phone: [facility] [place] Comment on above: Medicare annual well ness visit, subsequent (Primary Dx); Obesity, Class I, BMI 30-34.9; Encounter for screening mammogram for malignant neoplasm of breast; Hyperlipidemia, unspecified hyperlipidemia type; Essential hypertension; Osteoporosis, unspecified osteoporosis type, unspecified pathological fracture presence; Depression, unspecified depression type; Anxiety; DESIRAE (obstructive sleep apnea); Tubular adenoma Start: 04-05-2022 Refill Hugo short MD Work Phone: Internal [facility] Comment on above: Refill Request Start: 01-28-2022 End: 01-28-2022 ambulatory Thaddeus Shaw PT [facility] Comment on above: Impingement syndrome of left shoulder (Primary Dx) Start: 01-14-2022 End: 01-14-2022 ambulatory Thaddeus Ronald PT [facility] Comment on above: Impingement syndrome of left shoulder (Primary Dx) Start: 01-05-2022 Refill Hugo short MD Work Phone: Internal [facility] Comment on above: Refill Request Start: 12-31-2021 End: 12-31-2021 ambulatory Thaddeus Shaw PT [facility] Comment on above: Impingement syndrome of left shoulder (Primary Dx) Start: 2021 End: 2021 ambulatory Thaddeus Ronald PT [facility] Comment on above: Impingement syndrome of left shoulder Start: 12-11-2021 Telephone encounter Hugo hammer MD Work Phone: Internal [facility] Comment on above: Results Start: 12-10-2021 End: 12-10-2021 Subsequent hospital visit by physician [facility] Work Phone: Radiology Comment on above: Impingement syndrome of left shoulder [M75.42] Start: 12-10-2021 End: 12-10-2021 Patient encounter procedure Hugo Ro MD Work Phone: [facility] [place] Comment on above: Hyperlipidemia, unsp ecified hyperlipidemia type (Primary Dx); Insomnia, unspecified type; Essential hypertension; Impingement syndrome of left shoulder Start: 10-30-2021 Refill Hugo short MD Work Phone: [facility] [place] Comment on above: Refill Request Start: 10-14-2021 Non-patient / Non-visit Dr. Kiki Ro Work Phone: [facility] Start: 10-14-2021 End: 10-14-2021 Admission to same day surgery center Dr. Hugo [facility] Start: 10-13-2021 Non-patient / Non-visit Dr. Kiki Ro Work Phone: [facility] Start: 10-08-2021 Non-patient / Non-visit Dr. Kiki Ro Work Phone: [facility] Start: 10-07-2021 End: 10-07-[address] [facility] Start: 10-07-2021 End: 10-07-[address] Hugo Ro Work Phone: [facility] Start: 09-23-2021 End: 09-23-[address] [facility] Start: 08-17-2021 End: 08-17-[address] [facility] Start: 02-03-2021 End: 02-03-2021 Subsequent hospital visit by physician Xr [facility] Work Phone: Radiology Comment on above: Acute pain of left k nee [M25.562] Start: 06-18-2020 End: 06-18-2020 Subsequent hospital visit by physician Xr [facility] Work Phone: Radiology Comment on above: Knee injuries, left, initial encounter [S89.92XA] Procedures Date Procedure Procedure Detail Performing Clinician Start: 09-10-2024 Urnls dip stick/tabl et rgnt auto w/o microscopy Marivel Maria Dash REIN[employer]CING METAL WORKER.YARN [employer]ER Work Phone: Start: 04-27-2024 Ecg routine ecg w/le ast 12 lds i&r only [facility] Provider Start: 04-27-2024 Urnls dip stick/tabl et rgnt auto w/o microscopy Hugo Ro MD Work Phone: Start: 04-19-2024 Radiologic exam ches t 2 views Francine Moomaw REINFORCING METAL WORKER.YARN HAULER Work Phone: Start: 12-27-2023 Lipid 1996 panel - S axel or Plasma Hugo Ro MD Work Phone: Start: 10-10-2023 Radex ribs uni w/posteroant ch minimum 3 views Latisha Jansen PA-C Work Phone: Start: 08-05-2023 Colonoscopy Latisha Jansen PA-C Work Phone: Start: 12-31-2022 Computed tomography of abdomen and pelvis with contrast Start: 12-13-2022 Radex spine lumbosac ral 2/3 views Latisha Jansen PA-C Work Phone: Start: 12-13-2022 Urnls dip stick/tabl et rgnt auto w/o microscopy Tayler Beard REINFORCING METAL WORKER.YARN HAULER Work Phone: Start: 12-13-2022 Lipid 1996 panel - S axel or Plasma Hugo Ro MD Work Phone: Start: 06-23-2022 End: 06-23-2022 Mammography Hugo Coyle Work Phone: Start: 12-10-2021 Radex shoulder compl ete minimum 2 views Hugo Ro MD Work Phone: Start: 10-14-2021 End: 10-14-[address] Hugo Ro Work Phone: Start: 10-14-[address] Hugo Ro Work Phone: Start: 10-09-2021 H/O: surgery S/P dilation a nd curettage Start: 10-07-2021 Plain chest X-ray Dr. Malka Ro Work Phone: Start: 09-23-2021 MRI of pelvis with contrast Dr. Hugo Ro Work Phone: Start: 08-17-[address] Kiki Ro Work Phone: Start: 05-27-2021 Mammography Hugo Cheek MD Work Phone: Start: 02-03-2021 Radiologic examinati on knee 1/2 views Jasper Naranjo REINFORCING METAL WORKER.YARN HAULER, DNP Work Phone: Start: 06-18-2020 Radiologic exam knee complete 4/more views Fitz Francisco REINFORCING METAL WORKER.YARN HAULER Work Phone: Start: 06-09-2020 Colonoscopy Hugo Cheek MD Work Phone: H/O: surgery S/P dilation and curettage Dr. Hugo Ro Work Phone: Plan of Treatment Date Care Activity Detail Author Start: 12-26-2028 Lipid panel Lipid Screening [facility] Start: 08-05-2028 Screening for malign ant neoplasm of colon [facility] Start: 02-15-2028 Urine microalbumin profile [facility] Start: 12-14-2027 Lipid 1996 panel - Serum or Plasma Lipid Screening [facility] Start: 12-14-2027 Lipid panel Lipid Screening [facility] Start: 12-14-2027 LIPID SCREEN LIPID SCREEN [facility] Start: 04-27-2027 Diabetes Screening Diabetes Screenin g [facility] Start: 12-26-2026 Diabetes Screening Diabetes Screenin g [facility] Start: 12-15-2026 LIPID SCREEN LIPID SCREEN [facility] Start: 08-05-2026 Screening for malign ant neoplasm of colon [facility] Start: 06-18-2026 Screening for osteoporosis Bone Density Screening [facility] Start: 12-13-2025 DIABETES SCREEN DIABETES SCREEN [facility] Start: 12-13-2025 Diabetes Screening Diabetes Screenin g [facility] Start: 09-10-2025 Annual PCP Team Piece Dyer kari Disease Visit Annual PCP Team Chronic Disease Visit [facility] Start: 09-10-2025 BP Controlled (<130/80) BP Controlle d (<130/80) [facility] Start: 09-10-2025 Pneumococcal Vaccine : 50+ (1 of 1 - PCV) Pneumococcal Vaccine: 50+ (1 of 1 - PCV) [facility] Comment on above: Postponed from 12/17 (Declined at this time) Start: 09-10-2025 RSV Vaccine (1 - 1-d ose 75+ series) RSV Vaccine (1 - 1-dose 75+ series) [facility] Comment on above: Postponed from 12/17 (Declined at this time) Start: 09-10-2025 Shingrix Vaccine (1 of 2) Shingrix Vaccine (1 of 2) [facility] Comment on above: Postponed from 12/17 (Declined at this time) Start: 08-16-2025 Annual PCP Team Piece Dyer kari Disease Visit Annual PCP Team Chronic Disease Visit [facility] Start: 08-16-2025 BP Controlled (<130/80) BP Controlle d (<130/80) [facility] Start: 08-16-2025 Covid-19 Vaccine ( season) Covid-19 Vaccine () [facility] Comment on above: Postponed from 03/11 (Declined at this time) Start: 08-13-2025 BP Controlled (<130/80) BP Controlle d (<130/80) [facility] Start: 05-11-2025 Annual PCP Team Piece Dyer kari Disease Visit Annual PCP Team Chronic Disease Visit [facility] Start: 05-11-2025 BP Controlled (<130/80) BP Controlle d (<130/80) [facility] Start: 05-05-2025 LIPID SCREEN LIPID SCREEN [facility] Start: 04-27-2025 Annual PCP Team Piece Dyer kari Disease Visit Annual PCP Team Chronic Disease Visit [facility] Start: 02-22-2025 End: 02-22-2025 Patient encounter procedure 02/22/2025 9:00 AM EDT Office Visit [facility] [address] [place] [phone] Hugo Ro MD [address] [place] [id number] 6 month follow-up [facility] [place] Comment on above: 6 month follow-up Start: 01-17-2025 Annual PCP Team Piece Dyer kari Disease Visit Annual PCP Team Chronic Disease Visit [facility] Start: 01-17-2025 BP Controlled (<130/80) BP Controlle d (<130/80) [facility] Start: 01-17-2025 Shingrix Vaccine (1 of 2) Shingrix Vaccine (1 of 2) [facility] Comment on above: Postponed from 12/17 (Declined at this time) Start: 01-17-2025 End: 01-17-2025 Patient encounter procedure 01/17/2025 11:20 AM EDT Office Visit [facility] [address] [place] [address] Hugo Ro MD [address] [place] [address] 6 month follow-up [facility] [place] Comment on above: 6 month follow-up Start: 01-07-2025 Influenza vaccination Influenza Vacc ine (#1) [facility] Comment on above: Postponed from 03/11 (Declined at this time) Start: 12-15-2024 DIABETES SCREEN DIABETES SCREEN [facility] Start: 10-26-2024 End: 10-26-2024 ambulatory 10/26/2024 11:00 AM EDT OT/PT/Speech Visit [facility] [address] [place] [address] Thaddeus Shaw, PT [address] [place], [place] [id number] M25.562 (ICD-10-CM) - Acute pain of left knee [facility] Comment on above: M25.562 (ICD-10-CM) - Acute pain of left knee Start: 10-12-2024 End: 10-12-2024 ambulatory 10/12/2024 8:45 AM EDT OT/PT/Speech Visit [facility] [address] [place], [place] [id number] Thaddeus Shaw, PT [address] [place] [address] M25.562 (ICD-10-CM) - Acute pain of left knee [place] [facility] Comment on above: M25.562 (ICD-10-CM) - Acute pain of left knee Start: 10-09-2024 BP Controlled (<130/80) BP Controlle d (<130/80) [facility] Start: 09-10-2024 End: 09-10-2024 Patient encounter procedure 09/10/2024 12:40 PM EST Office Visit Internal Medicine [place] [address] [facility] [address] Marivel Dash, REINFORCING METAL WORKER.YARN HAULER [address] [place] [address] Annual Medicare Wellness [facility] [place] Comment on above: Annual Medicare Well ness Start: 07-23-2024 End: 07-23-2024 Patient encounter procedure 07/23/2024 9:50 AM EST Appointment Mammogram [address] [place] [address] Outside order Mammogram Comment on above: Outside order Start: 07-18-2024 Screening for malign ant neoplasm of breast Mammogram Screening [facility] Start: 07-16-2024 End: 07-16-2024 Patient encounter procedure 07/16/2024 1:00 PM EST Office Visit Internal Medicine [place] [address] [facility] [address] Marivel Dash, REINFORCING METAL WORKER.YARN HAULER [address] [place] [address] Annual Medicare Wellness Internal Medicine [place] Comment on above: Annual Medicare Well ness Start: 07-14-2024 Annual PCP Team Piece Dyer kari Disease Visit Annual PCP Team Chronic Disease Visit [facility] Start: 07-14-2024 Covid-19 Vaccine () Covid-19 Vaccine () [facility] Comment on above: Postponed from 03/11 (Declined at this time) Start: 07-14-2024 Pneumococcal Vaccine : 65+ (1 of 1 - PCV) Pneumococcal Vaccine: 65+ (1 of 1 - PCV) [facility] Comment on above: Postponed from 12/17 (Declined at this time) Start: 07-14-2024 RSV Vaccine (1 - 1-d ose 60+ series) RSV Vaccine (1 - 1-dose 60+ series) [facility] Comment on above: Postponed from 12/17 (Declined at this time) Start: 07-14-2024 RSV Vaccine (1 - 1-d ose 75+ series) RSV Vaccine (1 - 1-dose 75+ series) [facility] Comment on above: Postponed from 12/17 (Declined at this time) Start: 07-11-2024 Advance Directive Discussion Advance Directive Discussion [facility] Start: 05-11-2024 End: 05-11-2024 Patient encounter procedure 05/11/2024 8:40 AM EDT Office Visit Internal Medicine [place] [address] [place], [place] [address] Hugo Ro MD [address] [place] [address] 2 week follow up [facility] [place] Comment on above: 2 week follow up Start: 04-27-2024 End: 07-27-2024 Comprehensive metabolic 2000 panel - Serum or Plasma [facility] Comment on above: Expected: 04/27/2024 , Expires: 07/27/2024 Start: 04-27-2024 End: 07-27-2024 Lipase [Enzymatic activity/volume] in Serum or Plasma [facility] Comment on above: Expected: 04/27/2024 , Expires: 07/27/2024 Start: 03-11-2024 Covid-19 Vaccine ( season) Covid-19 Vaccine () [facility] Start: 03-11-2024 Covid-19 Vaccine () Covid-19 Vaccine () [facility] Start: 03-11-2024 Influenza vaccination [facility] Start: 01-10-2024 End: 01-10-2024 Patient encounter procedure 01/10/2024 9:40 AM EDT Office Visit Internal [facility] [place] [address] [place] [address] Hugo Ro MD [address] [place] [address] 6 Month follow up [facility] [place] Comment on above: 6 Month follow up Start: 12-28-2023 ANNUAL PCP TEAM RUBY ON RAILS CONSULTANT KARI DISEASE VISIT ANNUAL PCP TEAM CHRONIC DISEASE VISIT [facility] Start: 12-28-2023 BP CONTROLLED (<130/80) BP CONTROLLE D (<130/80) [facility] Start: 12-22-2023 ANNUAL PCP TEAM RUBY ON RAILS CONSULTANT KARI DISEASE VISIT ANNUAL PCP TEAM CHRONIC DISEASE VISIT [facility] Start: 12-18-2023 RSV Vaccine (1 - 1-d ose 75+ series) RSV Vaccine (1 - 1-dose 75+ series) [facility] Start: 11-25-2023 ANNUAL PCP TEAM RUBY ON RAILS CONSULTANT KARI DISEASE VISIT ANNUAL PCP TEAM CHRONIC DISEASE VISIT [facility] Start: 11-25-2023 SHINGRIX VACCINE (1 of 2) SHINGRIX VACCINE (1 of 2) [facility] Comment on above: Postponed from 12/17 (Declined at this time) Start: 06-23-2023 Mammography [facility] Start: 06-09-2023 Colonoscopy COLONOSCOPY [facility] Start: 06-09-2023 COLORECTAL CANCER SCREENING COLORECTAL CANCER SCREENING [facility] Start: 05-24-2023 ANNUAL PCP TEAM RUBY ON RAILS CONSULTANT KARI DISEASE VISIT ANNUAL PCP TEAM CHRONIC DISEASE VISIT [facility] Start: 05-24-2023 BP CONTROLLED (<130/80) BP CONTROLLE D (<130/80) [facility] Start: 05-24-2023 COVID-19 VACCINE (3 - Booster for Veronica series) COVID-19 VACCINE (3 - Booster for Veronica series) [facility] Comment on above: Postponed from 04/06 (Declined at this time) Start: 05-24-2023 Pneumococcal Vaccine : 65+ (1 - PCV) Pneumococcal Vaccine: 65+ (1 - PCV) [facility] Comment on above: Postponed from 12/17 (Declined at this time) Start: 05-24-2023 PNEUMOCOCCAL: 65+ (1 - PCV) PNEUMOCOCCAL: 65+ (1 - PCV) [facility] Comment on above: Postponed from 12/17 (Declined at this time) Start: 05-05-2023 DIABETES SCREEN DIABETES SCREEN [facility] Start: 03-11-2023 Covid-19 Vaccine ( season) Covid-19 Vaccine ( season) [facility] Start: 03-11-2023 Influenza vaccination [facility] Start: 01-07-2023 Influenza vaccination INFLUENZA (#1) [facility] Comment on above: Postponed from 03/11 (Declined at this time) Start: 2022 BP CONTROLLED (<130/80) BP CONTROLLE D (<130/80) [facility] Start: 12-10-2022 ANNUAL PCP TEAM RUBY ON RAILS CONSULTANT KARI DISEASE VISIT ANNUAL PCP TEAM CHRONIC DISEASE VISIT [facility] Start: 12-10-2022 BP CONTROLLED (<130/80) BP CONTROLLE D (<130/80) [facility] Start: 11-21-2022 End: 01-21-2023 CBC panel - Blood by Automated count CBC Lab Routine Essential hypertension Expected: 11/21/2022, Expires: 01/21/2023 [facility] Work Phone: Comment on above: Expected: 11/21/2022 , Expires: 01/21/2023 Start: 11-21-2022 End: 01-21-2023 Comprehensive metabolic 2000 panel - Serum or Plasma COMP METABOLIC PANEL Lab Routine Hyperlipidemia, unspecified hyperlipidemia type Expected: 11/21/2022, Expires: 01/21/2023 [facility] Work Phone: Comment on above: Expected: 11/21/2022 , Expires: 01/21/2023 Start: 11-21-2022 End: 01-21-2023 Lipid 1996 panel - Serum or Plasma LIPID PANEL BASIC Lab Routine Hyperlipidemia, unspecified hyperlipidemia type Expected: 11/21/2022, Expires: 01/21/2023 [facility] Work Phone: Comment on above: Expected: 11/21/2022 , Expires: 01/21/2023 Start: 09-21-2022 End: 10-05-2022 Influenza virus A and B RNA and SARS-CoV-2 (COVID-19) N gene panel - Respiratory specimen by GIGI with probe detection [facility] Work Phone: Comment on above: Expected: 09/21/2022 , Expires: 10/05/2022 Start: 07-11-2022 ADVANCE DIRECTIVE DISCUSSION ADVANCE DIRECTIVE DISCUSSION [facility] Start: 06-29-2022 End: 07-13-2022 Influenza virus A and B RNA and SARS-CoV-2 (COVID-19) N gene panel - Respiratory specimen by GIGI with probe detection [facility] Work Phone: Comment on above: Expected: 06/29/2022 , Expires: 07/13/2022 Start: 06-18-2022 FECAL OCCULT BLOOD FECAL OCCULT BLOO D [facility] Start: 06-18-2022 Screening for malign ant neoplasm of colon Fecal Occult Blood [facility] Start: 06-10-2022 ANNUAL PCP TEAM RUBY ON RAILS CONSULTANT KARI DISEASE VISIT ANNUAL PCP TEAM CHRONIC DISEASE VISIT [facility] Start: 05-27-2022 Mammography MAMMOGRAM [facility] Start: 04-29-2022 BP CONTROLLED (<130/80) BP CONTROLLE D (<130/80) [facility] Start: 03-18-2022 SHINGRIX VACCINE (1 of 2) SHINGRIX VACCINE (1 of 2) [facility] Comment on above: Postponed from 12/17 (Declined at this time) Start: 03-11-2022 Influenza vaccination [facility] Start: 01-09-2022 End: 03-11-2022 CBC panel - Blood by Automated count CBC Lab Routine Essential hypertension Expected: 01/09/2022, Expires: 03/11/2022 [facility] Work Phone: Comment on above: Expected: 01/09/2022 , Expires: 03/11/2022 Start: 01-09-2022 End: 03-11-2022 Comprehensive metabolic 2000 panel - Serum or Plasma COMP METABOLIC PANEL Lab Routine Hyperlipidemia, unspecified hyperlipidemia type Expected: 01/09/2022, Expires: 03/11/2022 [facility] Work Phone: Comment on above: Expected: 01/09/2022 , Expires: 03/11/2022 Start: 01-09-2022 End: 03-11-2022 LIPID PANEL BASIC LIPID PANEL BASIC Lab Routine Hyperlipidemia, unspecified hyperlipidemia type Expected: 01/09/2022, Expires: 03/11/2022 [facility] Work Phone: Comment on above: Expected: 01/09/2022 , Expires: 03/11/2022 Start: 07-11-2021 ADVANCE DIRECTIVE DISCUSSION ADVANCE DIRECTIVE DISCUSSION [facility] Start: 06-11-2021 COVID-19 VACCINE (3 - Booster for Veronica series) COVID-19 VACCINE (3 - Booster for Veronica series) [facility] Start: 04-06-2021 COVID-19 VACCINE (3 - Booster for Veronica series) COVID-19 VACCINE (3 - Booster for Veronica series) [facility] Start: 2013 Pneumococcal Vaccine : 65+ (1 - PCV) Pneumococcal Vaccine: 65+ (1 - PCV) [facility] Start: 2013 PNEUMOCOCCAL: 65+ (1 - PCV) PNEUMOCOCCAL: 65+ (1 - PCV) [facility] Start: 2008 RSV Vaccine (1 - 1-d ose 60+ series) RSV Vaccine (1 - 1-dose 60+ series) [facility] Start: 1998 Pneumococcal Vaccine : 50+ (1 of 1 - PCV) Pneumococcal Vaccine: 50+ (1 of 1 - PCV) [facility] Start: 1998 SHINGRIX VACCINE (1 of 2) SHINGRIX VACCINE (1 of 2) [facility] Start: 1993 COLOGUARD (FIT-DNA) COLOGUARD (FIT-D NA) [facility] Start: [address] COLONOGRAPHY [facility] Start: 1993 Screening for malign ant neoplasm of colon [facility] Start: 1993 SIGMOIDOSCOPY SIGMOIDOSCOPY [facility] Bacteria identified in Urine by Culture URINE CULTURE Microbiology Routine Urinary frequency 12/13/2022 9:58 AM EDT [facility] Work Phone: Bacteria identified in Urine by Culture BACTERIAL CULTURE, URINE Microbiology Routine Urinary frequency 09/10/2024 1:15 PM EST [facility] ECG COMPLETE [facility] Work Phone: Comment on above: Ordered: 04/27/2024 MG Breast - bilatera l Screening [facility] Patient referral [facility] Work Phone: PT PLAN OF CARE CERTIFICATION PT PLAN OF CARE CERTIFICATION Procedures Routine Impingement syndrome of left shoulder Ordered: 2021 [facility] Work Phone: Comment on above: Ordered: 2021 PT PLAN OF CARE CERTIFICATION PT PLAN OF CARE CERTIFICATION Procedures Routine Impingement syndrome of left shoulder Ordered: 01/14/2022 [facility] Work Phone: Comment on above: Ordered: 01/14/2022 End: 06-23-2023 Screening mammography bi 2-view breast inc cad HARSHIL SCREENING Radiology Routine Encounter for screening mammogram for malignant neoplasm of breast 1 Occurrences starting 05/24/2022 until 06/23/2023 [facility] Work Phone: Comment on above: 1 Occurrences starti ng 05/24/2022 until 06/23/2023 End: 10-10-2025 XR Knee - left 4 Views XR KNEE GENERAL 4V AP BOTH/PA BOTH/LAT/MERC LEFT Radiology Routine Acute pain of left knee Injury of left knee, initial encounter 1 Occurrences starting 09/10/2024 until 10/10/2025 [facility] Work Phone: Comment on above: 1 Occurrences starti ng 09/10/2024 until 10/10/2025 XR Knee - left 4 Views XR KNEE G ENERAL 4V AP BOTH/PA BOTH/LAT/MERC LEFT Radiology Routine Acute pain of left knee Injury of left knee, initial encounter 09/10/2024 1:29 PM EST [facility] Immunizations Immunization Date Immunization Notes Care Provider Adam claros 02-09-2021 COVID-19 vaccine (VERONICA) Hugo Ro MD Work Phone: [facility] Work Phone: 09-19-2018 influenza virus vaccine, unspecified formulation Hugo Ro MD Work Phone: [facility] Payers Date Payer Category Payer Self-pay [id number] 2023 Medicare (Managed Care) [facility]NY [facility] HMO [id number] 2023 Medicare [id number] 2021 Medicare HUMANA MEDICARE HUMANA GOLD PLUS [id number] 2021-Present [phone] [address] [address] [place] [address] [facility] [id number] 2021 Medicare [id number] 2019 Unknown [id number] 2019 Unknown [id number] 2016 Medicaid MEDICAID [facility] MEDICAID [id number] 2016-Present [phone] [address] [place] [address] Medicaid [id number] 2016 Medicaid [id number] 2016 Medicaid [id number] 2013 Medicare [id number] Medicare [id number] Unknown [id number] 462 Unknown [id number] [id number]. 462 Unknown [id number]. 462 Unknown [id number]. 462 Unknown [id number]. 462 Unknown [id number]. 462 Unknown [id number] [id number]. 462 Unknown [id number] [id number]. 462 Unknown [id number]. 462 Unknown [id number]. 462 Unknown [id number]. 462 Unknown [id number] 462 Social History Date Type Detail Facility [facility] Work Phone: Start: 10-12-2021 End: 12-04-2021 Tobacco smoking status VAIS Unknown if ever smoked [facility] Start: 1950 Sex Assigned At Female [facility] Start: 05-16-2017 End: 08-13-2024 Tobacco smoking status NHIS Ex-smoker [facility] History of tobacco use Cigarette Smoker [facility] Start: 05-16-2017 End: 06-29-2022 Tobacco use and exposure Smokeless tobacco non-user [facility] Start: 06-10-2021 End: 09-10-2024 Alcohol intake Current drinker of alcohol (finding) [facility] Start: 05-16-2017 History SDOH Alcohol Comment occasional wine with dinner [facility] Start: 05-16-2017 End: 06-29-2022 Tobacco Comment very rarely when I was a teenager [facility] Start: 1950 Sex Assigned At Not on file [facility] Start: 05-19-2020 End: 05-24-2022 Exposure to SARS-CoV-2 (event) Not sure [facility] Work Phone: History of tobacco use Current smoker [facility] Start: 11-24-2022 End: 12-21-2022 History of Social function [facility] Start: 11-24-2022 End: 12-21-2022 Tobacco use panel [facility] Adult Depression Screening Assessment 0 [facility] How often to you hav e a drink containing alcohol? Monthly or less [facility] Work Phone: How many standard drinks containing alcohol do you have on a typical day? 1 or 2 [facility] Work Phone: How often do you hav e 6 or more drinks on 1 occasion? Never [facility] Work Phone: Functional Status Date Assessment Result Facility 09-10-2024 Total score [AUDIT-C] 0 09/11/19 25 12:53 PM EST Marivel Dash, REINFORCING METAL WORKER.YARN HAULER [facility] 10-30-2014 Are you deaf, or do you have serious difficulty hearing No 10/30/2014 10:37 AM Mulu Newton MA No [facility] 10-30-2014 Are you blind, or do you have serious difficulty seeing, even when wearing glasses No 10/30/2014 10:37 AM Mulu Newton MA No [facility] 10-30-2014 Do you have serious difficulty walking or climbing stairs No 10/30/2014 10:37 AM Mulu Newton MA No [facility] 10-30-2014 Do you have difficul ty dressing or bathing No 10/30/2014 10:37 AM Mulu Newton MA No [facility] 10-30-2014 Because of a physica l, mental, or emotional condition, do you have difficulty doing errands alone such as visiting a physician's office or shopping No 10/30/2014 10:37 AM Mulu Newton MA No [facility] Mental Status Date Assessment Result Facility 10-14-2021 Cognitive function Voice/Name [facility] Work Phone: 10-30-2014 Because of a physica l, mental, or emotional condition, do you have serious difficulty concentrating, remembering, or making decisions No 10/30/2014 10:37 AM Mulu Newton MA [facility] Clinical Notes 06-18-2020 to 01-25-2025 Note Date & Type Note Facility 01-25-2025 Evaluation note Diagnosis Onset Date Resolution Encounter for routine gynecological examination noneactive January 25, 2025 8:54am [facility] Work Phone: 1(764) 124-613307-18-2025 [facility] [address], [address] [place] [address] OFFICE VISIT Date of Service: 01/25/25 MR#: [id number] Acct: [id number] Name: LYLANATALI Rossana Rep #: [id number] : 1950 Provider: Dr. 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 Ditching Required: No Is patient in pain?: No Allergies No Known Allergies Allergy (Verified 01/25/25 09:02) Medications ?Medication ?Instructions ?Recorded ?Confirmed ?Type amlodipine 10 mg tablet 10 mg PO DAILY 10/07/2101/08 History paroxetine HCl 40 mg tablet (Paxil) 40 mg PO DAILY 01/25/25 History atorvastatin 10 mg tablet 10 mg PO QHS 10/08/21 History cholecalciferol (vitamin D3) 50 50 mcg PO DAILY 01/25/25 History mcg (2,000 unit) capsule multivitamin 1 tab PO DAILY 10/08/2101/08 History omeprazole 40 mg capsule,delayed 40 mg PO DAILY 01/25/25 History release osteo biflex 1 tab PO DAILY 10/08/2101/08 History vibegron 75 mg tablet (Gemtesa) 75 mg PO DAILY 2 01/25/25 History vitamin E 200 unit capsule 200 unit PO DAILY 10/08/21 01/25/25 History Is last menstrual period known: No Post menopausal: Yes Patient : No : No PFSH Medical History Genetic testing Status post hysteroscopy Wears glasses Depression Anxiety Arthritis Bladder disease High cholesterol Gastric reflux Shortness of breath on exertion Former smoker CPAP (continuous positive airway pressure) dependence Hypertension Surgical History S/P dilation and curettage (~10/14/21) History of Family History Mother Lung cancer Daughter Lung cancer Father Stomach cancer Social History Smoking Status: Former smoker alcohol intake: current details: occasionally substance use type: does not use caffeine: Yes what type of physical activity do you participate in: none seatbelt use: always do you feel safe at home: Yes additional social history: History 3 Elective abortions Hx Para 3 Spontaneous abortions Hx # Term Pregnancies Ectopic pregnancies Hx # Pregnancies Multiple births # of living children HPI Encounter for routine gynecological examination Details: NATALI MONDRAGON is a 74 year old who presents for annual exam and EMB for thickened endometrium. 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 Last PAP: No longer indicated History of abnormal PAP: [] Last mammogram: 06/08/2024 History of abnormal mammogram: No Colon cancer screening: Will place referral to General Surgery for colonoscopy Other preventative health care screenings: PCP Dr Yeung Female Reproductive History Questions: metorrhagia: No, sexually active: Yes, dyspareunia: No and PCB: No Menopausal Symptoms: No hot flashes, No night sweats, No weight change, No mood changes, No difficulty concentrating, No sleep problems and No change in libido ROS Const Constitutional: Reports as per HPI; Denies fatigue, increased appetite, poor appetite, night sweats, weight gain or weight loss Cardio Card: Denies chest pain Resp Resp: Denies cough or dyspnea GI GI: Reports as per HPI; Denies abdominal pain, bloating, constipation, nausea or vomiting : Reports as per HPI and other; Denies difficulty voiding, dysuria, hematuria, hot flashes, nipple discharge, pelvic pain, prolapsesymptoms, urinary frequency, urinary incontinence, urinary urgency, vaginal discharge, vaginal dryness, vaginal odor or vaginal pruritus Skin Skin/Breast: Denies changing lesions, breast mass, breast pain, breast skin changes or nipple discharge Psych Psych: Denies anxiety, change in libido, depression or difficulty concentrating Exam Const General: cooperative, healthy appearing, comfortable, no acute distress, well developed and well groomed [facility] Head: normal to inspection and normocephalic Ears: hearing grossly normal bilaterally and external ears normal Nose: external nose normal Face and sinus: normal facial exam Neck Neck: normal visual inspection, full ROM and no lymphadenopathy Thyroid: thyroid normal Chest Chest palpation & inspection: normal inspection of the chest Breast inspection: normal inspection of the breasts and normal inspection of the axillae Breast palpation: normal palpation of the breasts, normal palpation of the axillae and no axillary lymphadenopathy Resp Effort & Inspection: normal respiratory effort GI Inspection: normal to inspection and non-distended Palpation: soft, no hepatosplenomegaly and no guarding General: bladder normal to palpation External Female Exam: normal external appearance, normal appearance of the urethra and no lesions Urethra: normal appearance of the urethra and normal palpation Speculum Exam - Vagina: normal appearance of the vagina and normal vaginal discharge Speculum Exam - Cervix: normal appearance of the cervix, no cervical discharge, no lesions and nontender Bimanual Exam- Vagina & Uterus: normal bimanual exam, uterine size normal, bladder normal to palpation, No tender, uterine mobility normal, consistency normal, non-tender and no cervical motion tenderness Bimanual Exam- Adnexa, other: normal adnexae, no masses and non-tender Skin General: no rashes or lesions noted Neuro General: patient alert, moves all extremities and no focal motor deficits Extrem General: normal to inspection and no pedal edema Psych Appearance: grossly normal Mental Status: mental status grossly normal Affect: normal affect Speech and Movement: speech and movement normal Attitude: cooperative Office Procedures Endometrial Biopsy Endometrial Biopsy Test: Yes Not Applicable Consent Signed: Yes Time out checklist: patient tenaculum used: Yes dilator used: Yes Details: Cervix prepped with betadine and pipelle inserted into uterus without complication. Specimen obtained and sent to lab for analysis. All instruments removed from vagina without complications. Excellent hemostasis noted. 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 Encouraged maintenance of a healthy weight and active lifestyle and handout given. Annual exam handout including recommendations for good health guidelines, Calcium/vitamin D recommendations, and basic screening information given. Problem list up to date, see problem list details for any additional plan information. Follow up in one year for annual health maintenance exam or sooner if needed. Orders: Orders SCRN MAMM (CAD)W/JJ BILAT Today Z12.31 - Encounter for screening mammogram for malignant neoplasmof breast Endometrial Biopsy Today N95.0 - Postmenopausal bleeding, R93.89 - Abnormal findings on diagnostic imaging of other specified body structures Referrals General Surgery Z12.11 - Encounter for screening for malignant neoplasm of colon 01/25/25 0932 e Velde DO> Date _ Kay Freedtamekamarty Signature: Date (if applicable) CC: ~ [facility]04-18-2025 NoteHNO ID: [id number] Author: THADDEUS SHAW PT Service: ? Author Type: Physical Therapist Type: Progress Notes Filed: 10/26/2024 11:39 Note Text: Episode Visit Count: 2 Therapist That Will Accept/Oversee The Plan Of Care: Thaddeus Shaw PT Start of Care Date: 09/27/24 Onset Date: 09/13/24 Plan of Care Certification Date: 09/27/24 Next Certification Due Date: 11/01/24 Patient Identified by Name and Date of : Yes REHABILITATION AND SPORTS THERAPY PHYSICAL THERAPY DISCONTINUANCE OF CARE PLAN OF CARE UPDATE: Assessment: Natali Rossana Mondragon is discontinued from Physical Therapy services due to goal achievement. and maximal benefit.. Patient was seen for 2 visits from Start of Care Date: 09/27/24 to 10/26/2024 and treatment included: Therapeutic exercise. Goals updated 10/26/2024 Goals for Episode of Care: established 09/27/24 [place] in home exercise program. - MET Perform stair negotiation without pain. - MET Increased strength of LLE 5/5 for ease of of navigating down the stairs for ease of entering public building and work duties - MET Patient Goals: Patient wants to be able to walk down the steps normally SUBJECTIVE: Pt states she is feeling fine. No issues. She can walk without issue. Patient Goals: Patient wants to be able to walk down the steps normally Functional Limitations: nothing Prior Level of Function: Independent without limitations Intake Information: Prescription present Previous Treatment: Heat , Ice Pain: Pain Pain Level: 0 Pain Location: Knee - Left PROMIS Scales 10/26/2024 09/27/2024 Higher is Better Phys Func - T Score 58 (within normal limits) 44 (mild dysfunction) Phys Func - Percentile 79 27 Self-Eff Symptom - T Score 48 (Average) 46 (Average) Self-Eff Symptom - Percentile 42 34 T-scores: mean of general population = 50. 5 points is clinically meaningfully difference Percentiles provide an indication of how the patient's score ranks in relation to the general population. Higher percentile rankings indicate better function/quality of life. 50th percentile is the average of the general population and indicates half of respondents had a worse score. OBJECTIVE MEASURES WITH LEVEL OF FUNCTION: Posture / Alignment Posture: Rounded shoulders LE AROM R LE AROM: WNL L LE AROM: WNL L Knee Extension: 0 Degrees L Knee Flexion: 140 Degrees LE Flexibility Flexibility: Hamstring Flexibility R Hamstring Flexibility: WNL L Hamstring Flexibility: WNL LE Strength R Knee Extension (L3): 5/5 L Hip Extension: 5/5 L Hip Flexion (L2): 5/5 L Knee Extension (L3): 5/5 L Knee Flexion: 5/5 Gait Gait: Independent Gait Observation: WNL Stairs: Independent Stairs: WNL TREATMENT: Therapeutic Exercise: 2: All objective measures taken 3: Discussed finalized HEP including SLR, Heel slides, Squats, step-downs, HS stretching. 4: Seated LAQ x 10 5: STS x 35 reps 6: Seated hip ADD iso 2 x 15 reps Skilled Intervention: Patient was educated in proper exercise technique and purpose for exercises. Provided written instruction for home exercise program to facilitate proper performance and compliance. Correct performance of therapeutic exercises was facilitated with verbal and visual cuing. Billing Therapeutic Exercise Treatment Minutes: 40 Skilled Treatment Time Minutes (timed and untimed codes): 40 Total Session Time (minutes): 40 Session Start Time : 1059 Session Stop Time : 1139 Thaddeus Shaw [facility]04-18-2025 History of Present illness Narrative* Thaddeus Shaw PT - 10/26/2024 10:59 AM EDT Images from the original note were not included. Episode Visit Count: 2 Therapist That Will Accept/Oversee The Plan Of Care: Thaddeus Shaw PT Start of Care Date: 09/27/24 Onset Date: 09/13/24 Plan of Care Certification Date: 09/27/24 Next Certification Due Date: 11/01/24 Patient Identified by Name and Date of : Yes REHABILITATION AND SPORTS THERAPY PHYSICAL THERAPY DISCONTINUANCE OF CARE PLAN OF CARE UPDATE: Assessment: Natali Mondragon is discontinued from Physical Therapy services due to goal achievement. and maximal benefit.. Patient was seen for 2 visits from Start of Care Date: 09/27/24 to 10/26/2024 and treatment included: Therapeutic exercise. Goals updated 10/26/2024 Goals for Episode of Care: established 09/27/24 [place] in home exercise program. - MET Perform stair negotiation without pain. - MET Increased strength of LLE 5/5 for ease of of navigating down the stairs for ease of entering public building and work duties - MET Patient Goals: Patient wants to be able to walk down the steps normally SUBJECTIVE: Pt states she is feeling fine. No issues. She can walk without issue. Patient Goals: Patient wants to be able to walk down the steps normally Functional Limitations: nothing Prior Level of Function: Independent without limitations Intake Information: Prescription present Previous Treatment: Heat , Ice Pain: Pain Pain Level: 0 Pain Location: Knee - Left PROMIS Scales 10/26/2024 09/27/2024 Higher is Better Phys Func - T Score 58 (within normal limits) 44 (mild dysfunction) Phys Func - Percentile 79 27 Self-Eff Symptom - T Score 48 (Average) 46 (Average) Self-Eff Symptom - Percentile 42 34 T-scores: mean of general population = 50. 5 points is clinically meaningfully difference Percentiles provide an indication of how the patient's score ranks in relation to the general population. Higher percentile rankings indicate better function/quality of life. 50th percentile is the average of the general population and indicates half of respondents had a worse score. OBJECTIVE MEASURES WITH LEVEL OF FUNCTION: Posture / Alignment Posture: Rounded shoulders LE AROM R LE AROM: WNL L LE AROM: WNL L Knee Extension: 0 Degrees L Knee Flexion: 140 Degrees LE Flexibility Flexibility: Hamstring Flexibility R Hamstring Flexibility: WNL L Hamstring Flexibility: WNL LE Strength R Knee Extension (L3): 5/5 L Hip Extension: 5/5 L Hip Flexion (L2): 5/5 L Knee Extension (L3): 5/5 L Knee Flexion: 5/5 Gait Gait: Independent Gait Observation: WNL Stairs: Independent Stairs: WNL TREATMENT: Therapeutic Exercise: 2: All objective measures taken 3: Discussed finalized HEP including SLR, Heel slides, Squats, step-downs, HS stretching. 4: Seated LAQ x 10 5: STS x 35 reps 6: Seated hip ADD iso 2 x 15 reps Skilled Intervention: Patient was educated in proper exercise technique and purpose for exercises. Provided written instruction for home exercise program to facilitate proper performance and compliance. Correct performance of therapeutic exercises was facilitated with verbal and visual cuing. Billing Therapeutic Exercise Treatment Minutes: 40 Skilled Treatment Time Minutes (timed and untimed codes): 40 Total Session Time (minutes): 40 Session Start Time : 1059 Session Stop Time : 1139 Thaddeus Shaw PT [facility] NoteHNO ID: [id number] Author: THADDEUS SHAW PT Service: ? Author Type: Physical Therapist Type: Progress Notes Filed: 09/27/2024 14:45 Note Text: Episode Visit Count: 1 Therapist That Will Accept/Oversee The Plan Of Care: Thaddeus Shaw PT Start of Care Date: 09/27/24 Onset Date: 09/13/24 Plan of Care Certification Date: 09/27/24 Next Certification Due Date: 11/01/24 Patient Identified by Name and Date of : Yes REHABILITATION AND SPORTS THERAPY PHYSICAL THERAPY EVALUATION PLAN OF CARE: Assessment: Natali Mondragon presents with chief complaint of L knee pain that interferes with stair negotiation . The patient presents with impairments in independence in exercise and overall function. PROMIS? (Patient-Reported Outcomes Measurement Information System) scores were reviewed and identified as a rehabilitation concern. Prognosis for therapy is Good due to: current objective clinical presentation . The patient will benefit from skilled therapy services to meet the goals established for this plan of care as noted below. Goals for Episode of Care: established 09/27/24 [place] in home exercise program. Perform stair negotiation without pain. Increased strength of LLE 5/5 for ease of of navigating down the stairs for ease of entering public building and work duties Patient Goals: Patient wants to be able to walk down the steps normally Time Frame for Goals and Treatment : 10/25/24 Planned Interventions, Frequency, and Duration: Current Frequency: 1x/week Duration: 4 weeks Total Number of Visits Planned: 4 Planned Treatment Interventions: Therapeutic exercise (23224), Neuromuscular re-education (60122), Manual therapy (22785), Therapeutic activities (35714), Self-fci management (65128), Gait Training (18897), Patient/Family/Caregiver Education PLAN FOR NEXT VISIT: Patient demonstrates good understanding of plan of care and treatment. The above goals and plan of care were discussed and agreed upon by patient/family. SUBJECTIVE: Pt fell on the driveway and hurt the L knee. She did have swelling and bruising. Use to have to sit after standing for awhile. Mostly has trouble walking down stairs but up is not much of a problem. Patient Goals: Patient wants to be able to walk down the steps normally Functional Limitations: stair negotiation Prior Level of Function: Independent without limitations Intake Information: Prescription present Previous Treatment: Heat , Ice Pain: Pain Pain Level: 5 (When going down stairs) Pain Location: Knee - Left PROMIS Scales 09/27/2024 Higher is Better Phys Func - T Score 44 (mild dysfunction) Phys Func - Percentile 27 Self-Eff Symptom - T Score 46 (Average) Self-Eff Symptom - Percentile 34 T-scores: mean of general population = 50. 5 points is clinically meaningfully difference Percentiles provide an indication of how the patient's score ranks in relation to the general population. Higher percentile rankings indicate better function/quality of life. 50th percentile is the average of the general population and indicates half of respondents had a worse score. OBJECTIVE MEASURES WITH LEVEL OF FUNCTION: Posture / Alignment Posture: Rounded shoulders Knee Observations L Knee Palpation Tenderness: Lateral joint line, Tibial condyles LE AROM R LE AROM: WNL L LE AROM: WNL L Knee Extension: 0 Degrees L Knee Flexion: 140 Degrees LE Flexibility Flexibility: Hamstring Flexibility R Hamstring Flexibility: WNL L Hamstring Flexibility: WNL LE Strength R Knee Extension (L3): 5/5 L Hip Extension: 4/5 L Hip Flexion (L2): 4/5 L Knee Extension (L3): 5/5 (Minor pain with this) Gait Gait Observation: WNL Stairs: Modified Independent Stairs: Using handrail x2 pt slowly descends steps with pain in BLEs Education: Education Learning Preferences: Demonstration, Explanation, Performance, Printed Materials Barriers: None Learning/educational needs: Home exercise program, Plan of Care, Changes in Plan of Care Education Provided: Yes, see treatment interventions for education provided Education Provided To: Patient Education Mode/Type: Demonstration, Explanation/Discussion, Literature/Printed Materials, Performance Response to Education/Teach Back: States/Identifies, Return Demonstration TREATMENT: PT Treatment Interventions: Therapeutic Exercise Evaluation Therapeutic Exercise: 2: Supine SLR x 10 3: Lateral step down 4 step, 2 x 10 4: Supine heel slides x 10 Skilled Intervention: Patient was educated in proper exercise technique and purpose for exercises. Provided written instruction for home exercise program to facilitate proper performance and compliance. Correct performance of therapeutic exercises was facilitated with verbal and visual cuing. Billing * Evaluation Low Complexity: 1 Unit Therapeutic Exercise Treatment Minutes: 14 Skilled Treatment Time Minutes (timed and u (more content not included)... [facility]03-20-2025 History of Present illness Narrative* Thaddeus Shaw, PT - 09/27/2024 1:57 PM EDT Images from the original note were not included. Episode Visit Count: 1 Therapist That Will Accept/Oversee The Plan Of Care: Thaddeus Shaw PT Start of Care Date: 09/27/24 Onset Date: 09/13/24 Plan of Care Certification Date: 09/27/24 Next Certification Due Date: 11/01/24 Patient Identified by Name and Date of : Yes REHABILITATION AND SPORTS THERAPY PHYSICAL THERAPY EVALUATION PLAN OF CARE: Assessment: Natali Mondragon presents with chief complaint of L knee pain that interferes with stair negotiation . The patient presents with impairments in independence in exercise and overall function. PROMIS (Patient-Reported Outcomes Measurement Information System) scores were reviewed and identified as a rehabilitation concern. Prognosis for therapy is Good due to: current objective clinicalpresentation . The patient will benefit from skilled therapy services to meet the goals establishedfor this plan of care as noted below. Goals for Episode of Care: established 09/27/24 [place] in home exercise program. Perform stair negotiation without pain. Increased strength of LLE 5/5 for ease of of navigating down the stairs for ease of entering publicbuilding and work duties Patient Goals: Patient wants to be able to walk down the steps normally Time Frame for Goals and Treatment : 10/25/24 Planned Interventions, Frequency, and Duration: Current Frequency: 1x/week Duration: 4 weeks Total Number of Visits Planned: 4 Planned Treatment Interventions: Therapeutic exercise (42021), Neuromuscular re- education (90385), Manual therapy (29681), Therapeutic activities (36720), Self- fci management (33285), Gait Training (47626), Patient/Family/Caregiver Education PLAN FOR NEXT VISIT: Patient demonstrates good understanding of plan of care and treatment. The above goals and plan of care were discussed and agreed upon by patient/family. SUBJECTIVE: Pt fell on the driveway and hurt the L knee. She did have swelling and bruising. Use to have to sitafter standing for awhile. Mostly has trouble walking down stairs but up is not much of a problem. Patient Goals: Patient wants to be able to walk down the steps normally Functional Limitations: stair negotiation Prior Level of Function: Independent without limitations Intake Information: Prescription present Previous Treatment: Heat , Ice Pain: Pain Pain Level: 5 (When going down stairs) Pain Location: Knee - Left PROMIS Scales 09/27/2024 Higher is Better Phys Func - T Score 44 (mild dysfunction) Phys Func - Percentile 27 Self-Eff Symptom - T Score 46 (Average) Self-Eff Symptom - Percentile 34 T-scores: mean of general population = 50. 5 points is clinically meaningfully difference Percentiles provide an indication of how the patient's score ranks in relation to the general population. Higher percentile rankings indicate better function/quality of life. 50th percentile is the average of the general population and indicates half of respondents had a worse score. OBJECTIVE MEASURES WITH LEVEL OF FUNCTION: Posture / Alignment Posture: Rounded shoulders Knee Observations L Knee Palpation Tenderness: Lateral joint line, Tibial condyles LE AROM R LE AROM: WNL L LE AROM: WNL L Knee Extension: 0 Degrees L Knee Flexion: 140 Degrees LE Flexibility Flexibility: Hamstring Flexibility R Hamstring Flexibility: WNL L Hamstring Flexibility: WNL LE Strength R Knee Extension (L3): 5/5 L Hip Extension: 4/5 L Hip Flexion (L2): 4/5 L Knee Extension (L3): 5/5 (Minor pain with this) Gait Gait Observation: WNL Stairs: Modified Independent Stairs: Using handrail x2 pt slowly descends steps with pain in BLEs Education: Education Learning Preferences: Demonstration, Explanation, Performance, Printed Materials Barriers: None Learning/educational needs: Home exercise program, Plan of Care, Changes in Plan of Care Education Provided: Yes, see treatment interventions for education provided Education Provided To: Patient Education Mode/Type: Demonstration, Explanation/Discussion, Literature/Printed Materials, Performance Response to Education/Teach Back: States/Identifies, Return Demonstration TREATMENT: PT Treatment Interventions: Therapeutic Exercise Evaluation Therapeutic Exercise: 2: Supine SLR x 10 3: Lateral step down 4 step, 2 x 10 4: Supine heel slides x 10 Skilled Intervention: Patient was educated in proper exercise technique and purpose for exercises. Provided written instruction for home exercise program to facilitate proper performance and compliance. Correct performance of therapeutic exercises was facilitated with verbal and visual cuing. Billing * Evaluation Low Complexity: 1 Unit Therapeutic Exercise Treatment Minutes: 14 Skilled Treatment Time Minutes (timed and untimed codes): 35 Total Session Time (minutes): 35 Session Start Time : 1357 Session Stop Time : 1432 Thaddeus Shaw PT [facility] History of Present illness Narrative* Howie Acuna RT(R) - 09/10/2024 1:20 PM EST Radiology Service Progress Note PATIENT NAME: Natali Mondragon DATE OF SERVICE: September 10, 2024 TIME: 1:17 PM PATIENT IDENTITY VERIFICATION COMPLETED USING TWO (2) IDENTIFIERS: Name and Date of confirmedby patient verbally. FALL SCREENING: Has the patient had 2 falls in the last year or 1 fall with injury or currently using an Ambulatory Assistive Device (Walker, Cane, Wheelchair, Crutches, etc.)? No PATIENT GENDER DATA: Assigned female at . status: : No status:NO. PATIENT RELEVANT IMPLANT DATA REVIEWED: Not Applicable PATIENT PRESENTS WITH AN IMPLANTABLE OR ATTACHED MANAGER PHOTO: No RADIOLOGY DEPARTMENT: General X-ray: Exam(s) Completed: Lower Extremity X- Ray(s): Knee, AP / Lat / Tunne / Merchant Left and Wt. Bearing PERIPHERAL IV DATA: Not applicable SIGNED BY: RT Cecilia(R) September 10, 2024 1:17 PM documented in this [facility]Mer[facility]25 NoteHNO ID: [id number] Author: HOWIE ACUNA RT(R) Service: Radiology Author Type: Technologist Type: Progress Notes Filed: 09/10/2024 13:30 Note Text: Radiology Service Progress Note PATIENT NAME: Natali Mondragon DATE OF SERVICE: September 10, 2024 TIME: 1:17 PM PATIENT IDENTITY VERIFICATION COMPLETED USING TWO (2) IDENTIFIERS: Name and Date of confirmed by patient verbally. FALL SCREENING: Has the patient had 2 falls in the last year or 1 fall with injury or currently using an Ambulatory Assistive Device (Walker, Cane, Wheelchair, Crutches, etc.)? No PATIENT GENDER DATA: Assigned female at . status: : No status: NO. PATIENT RELEVANT IMPLANT DATA REVIEWED: Not Applicable PATIENT PRESENTS WITH AN IMPLANTABLE OR ATTACHED MANAGER PHOTO: No RADIOLOGY DEPARTMENT: General X-ray: Exam(s) Completed: Lower Extremity X-Ray(s): Knee, AP / Lat / Tunne / Merchant Left and Wt. Bearing PERIPHERAL IV DATA: Not applicable SIGNED BY: RT Cecilia(R) September 10, 2024 1:17 [facility]03-03-2025 Instructions* Patient Instructions* Marivel Dash, REINFORCING METAL WORKER.YARN HAULER - 09/10/2024 12:55 PM EST Screening schedule The following prevention plan is recommended: Shingrix Vaccine(1 of 2) Never done Pneumococcal Vaccine: 50+(1 of 1 - PCV) Never done RSV Vaccine(1 - 1-dose 75+ series) Never done WHAT YOU CAN DO TO PREVENT FALLS Many falls can be prevented. By making some changes, you can lower your chances of falling. Four things YOU can do to prevent falls for you* and your caregiver 1. Begin a regular exercise program Exercise is one of the most important ways to lower your chances of falling. It makes you stronger and helps you feel better. Exercises that improve balance and coordination (like Fredis Chi) are the most helpful. Lack of exercise leads to weakness and increases your chances of falling. Ask your doctor or health care provider about the best type of exercise program for you. 2. Have your health care provider review your medicines Have your doctor or pharmacist review all the medicines you take, even [id number] medicines. As you get older, the way medicines work in your body can change. Some medicines, or combinations of medicines, can make you sleepy or dizzy andcan cause you to fall. 3. Have your vision checked Have your eyes checked by an eye doctor at least once a year. You may be wearing the wrong glasses or have a condition like glaucoma or cataracts that limits your vision. Poor vision can increase your chances of falling. 4. Make your home safer About half of all falls happen at home. To make your home safer: Remove things you can trip over (like papers, books, clothes, and shoes) from stairs and places where you walk. Remove small throw rugs or use double-sided tape to keep the rugs from slipping. Keep items you use often in cabinets you can reach easily without using a step stool. Have grab bars put in next to your toilet and in the tub or shower. Use non-slip mats in the bathtub and on shower floors. Improve the lighting in your home. As you get older, you need brighter lights to see well. Hang light-weight curtains or shades to reduce glare. Have handrails and lights put in on all staircases. Wear shoes both inside and outside the house. Avoid going barefoot or wearing slippers. For more information, contact: Centers for Disease Control and Prevention www.cdc.gov/injury * This information may not apply if you have certain medical conditions. documented in this encounterMer[facility]03-[facility]25 NoteHNO ID: [id number] Author: MARIVEL DASH APRN.CNP Service: ? Author Type: Nurse Practitioner Type: Progress Notes Filed: 09/10/2024 13:13 Note Text: Natali Mondragon is a 73 year old female here for a Medicare wellness visit. Medicare Health Risk Assessment General Health Very good Exercise: Minutes/Day 10 min Exercise: Days/Week 5 days Alcohol: Daily Use Never Alcohol: Drinks/Day Patient does not drink Alcohol: 6 or more drinks Never Feel off balance No Concerns: Teeth/Dentures No Concerns: Sexual function Decline Troubled by feelings None of the above Frequency: Eating healthy diet More than half the days ADLs requiring help None of the above Safety precautions in home/vehicle Yes Smoke, vape, chews tobacco No Difficulty hearing No Difficulty seeing No Current Providers Specialists: I have reviewed specialist-related care of the patient in the medical record. Current care team: Patient Care Team: Hugo Ro MD as PCP - General (Internal Medicine) Marivel Dash APRN.YARN HAULER as Electronic Plotting System Operator (Internal Medicine) Diane Pacheco, gynecology urology. [place] gynecology: Dr. Arriaga. [facility] D[facility]. Optometry in [place]. Medical/Family history review Reviewed and updated problem list, medical/surgical/family/social history, medications, and allergies. Opioid use review Opioid Medications (last 90 days) No data to display Anxiety/Depression screening Recommendation: no further intervention at this time Cognitive screening Mini Cog Score: 4 Cognitive screening reviewed and No further action needed (score 3-5). Functional Observation Was the patient's Timed Up AND Go test unsteady or >= 12 seconds? No Advance Care Planning Patient was not able to provide a surrogate decision maker or written advance directives Measurements BP 132/80 Pulse 84 Resp 12 Ht 143 cm (4' 8.3) Wt 66.7 kg (147 lb 0.8 oz) SpO2 96% BMI 32.62 kg/m? Vision Screening: Follows with optometry/ophthalmology Assessment/Plan Medicare annual wellness visit, subsequent (Z00.00) - Counseled on healthy diet and regular exercise - Fall avoidance information provided - Personalized prevention plan provided - Discussed need for and benefit of weight loss. BMI 32.62 kg/(m2) Additional Concerns The following concerns were also discussed with the patient: Possible UTI: Urinary frequency for weeks Denies: burning, hematuria, pressure, fever, chills, abdominal pain, and hesitancy Treatments: nothing She slipped on ice and landed on her left knee about one week ago. She did not seek medical attention. She was able to walk but very painful. Initially the knee was swollen but this has mostly resolved. No bruising or redness. Pain is located: over the kneecap. Described as: aching Aggravated by: walking, going up stairs, and going down stairs Treatment: ice Popping or clicking with movement: No Locking or feel like is giving-out: No Interfering with sleep:No Previous injury: No Previous surgery: No HTN-Medication changes:No Taking all medications as prescribed: Yes Side effects: No Home BP's: Yes 120's/70's on average Denies: headache, chest pain, palpitations, dyspnea, and peripheral edema. Last 3 Encounter BP Readings: Date: BP: 09/10/2024 132/80 08/16/2024 118/62 08/13/2024 120/76 Anxiety/depression: Patient is currently taking Paxil Feels medication is working well: yes Persistent/bothersome symptoms: none Side effects: None BP 132/80 Pulse 84 Resp 12 Ht 143 cm (4' 8.3) Wt 66.7 kg (147 lb 0.8 oz) SpO2 96% BMI 32.62 kg/m? Physical Exam Vitals reviewed. Constitutional: Appearance: Normal appearance. Cardiovascular: Rate and Rhythm: Normal rate and regular rhythm. Heart sounds: Normal heart sounds. No murmur heard. Pulmonary: Effort: Pulmonary effort is normal. Breath sounds: Normal breath sounds. No wheezing, rhonchi or rales. Abdominal: Palpations: Abdomen is soft. Tenderness: There is no abdominal tenderness. There is no right CVA tenderness or left CVA tenderness. Musculoskeletal: Right knee: Normal. Left knee: No swelling, deformity, erythema, ecchymosis or crepitus. Normal range of motion. Tenderness present over the medial joint line. Normal alignment, normal meniscus and normal patellar mobility. Neurological: Mental Status: She is alert. Psychiatric: Mood and Affect: Mood normal. ASSESSMENT/PLAN: 1. Medicare annual wellness visit, subsequent - ICD9: V70.0, ICD10: Z00.00 (primary diagnosis) See medicare wellness plan 2. Urinary frequency - ICD9: 788.41, ICD10: R35.0 Chronic, worsening - UA DIP, URINE (POC) showing only trace leuks - send BACTERIAL CULTURE, URINE - if culture negative consider scheduling follow-up with urogynecologist Dr. Pacheco 3. Acute pain of left knee - ICD9: 719.46, ICD10: M25.562 No acute findings on exam today. Pain is gr (more content not included)... [facility]03-03-2025 History of Present illness Narrative* Marivel Dash, REINFORCING METAL WORKER.YARN HAULER - 09/10/2024 12:52 PM EST Images from the original note were not included. Natali Mondragon is a 73 year old female here for a Medicare wellness visit. Medicare Health Risk Assessment General Health Very good Exercise: Minutes/Day 10 min Exercise: Days/Week 5 days Alcohol: Daily Use Never Alcohol: Drinks/Day Patient does not drink Alcohol: 6 or more drinks Never Feel off balance No Concerns: Teeth/Dentures No Concerns: Sexual function Decline Troubled by feelings None of the above Frequency: Eating healthy diet More than half the days ADLs requiring help None of the above Safety precautions in home/vehicle Yes Smoke, vape, chews tobacco No Difficulty hearing No Difficulty seeing No Current Providers Specialists: I have reviewed specialist-related care of the patient in the medical record. Current care team: Patient Care Team: Hugo Ro MD as PCP - General (Internal Medicine) Marivel Dash APRN.RICHARD as Electronic Plotting System Operator (Internal Medicine) Diane Pacheco, gynecology urology. [place] gynecology: Dr. Arriaga. [facility]. Optometry in [place]. Medical/Family history review Reviewed and updated problem list, medical/surgical/family/social history, medications, and allergies. Opioid use review Opioid Medications (last 90 days) No data to display Anxiety/Depression screening Recommendation: no further intervention at this time Cognitive screening Mini Cog Score: 4 Cognitive screening reviewed and No further action needed (score 3-5). Functional Observation Was the patient's Timed Up & Go test unsteady or >= 12 seconds? No Advance Care Planning Patient was not able to provide a surrogate decision maker or written advance directives Measurements BP 132/80 Pulse 84 Resp 12 Ht 143 cm (4' 8.3) Wt 66.7 kg (147 lb 0.8 oz) SpO2 96% BMI 32.62 kg/m Vision Screening: Follows with optometry/ophthalmology Assessment/Plan Medicare annual wellness visit, subsequent (Z00.00) - Counseled on healthy diet and regular exercise - Fall avoidance information provided - Personalized prevention plan provided - Discussed need for and benefit of weight loss. BMI 32.62 kg/(m^2) Additional Concerns The following concerns were also discussed with the patient: Possible UTI: Urinary frequency for weeks Denies: burning, hematuria, pressure, fever, chills, abdominal pain, and hesitancy Treatments: nothing She slipped on ice and landed on her left knee about one week ago. She did not seek medical attention. She was able to walk but very painful. Initially the knee was swollen but this has mostly resolved. No bruising or redness. Pain is located: over the kneecap. Described as: aching Aggravated by: walking, going up stairs, and going down stairs Treatment: ice \Popping or clicking with movement: No Locking or feel like is giving-out: No Interfering with sleep:No Previous injury: No Previous surgery: No HTN-Medication changes:No Taking all medications as prescribed: Yes Side effects: No Home BP's: Yes 120's/70's on average Denies: headache, chest pain, palpitations, dyspnea, and peripheral edema. Last 3 Encounter BP Readings: Date: BP: 09/10/2024 132/80 08/16/2024 118/62 08/13/2024 120/76 Anxiety/depression: Patient is currently taking Paxil Feels medication is working well: yes Persistent/bothersome symptoms: none Side effects: None BP 132/80 Pulse 84 Resp 12 Ht 143 cm (4' 8.3) Wt 66.7 kg (147 lb 0.8 oz) SpO2 96% BMI 32.62 kg/m Physical Exam Vitals reviewed. Constitutional: Appearance: Normal appearance. Cardiovascular: Rate and Rhythm: Normal rate and regular rhythm. Heart sounds: Normal heart sounds. No murmur heard. Pulmonary: Effort: Pulmonary effort is normal. Breath sounds: Normal breath sounds. No wheezing, rhonchi or rales. Abdominal: Palpations: Abdomen is soft. Tenderness: There is no abdominal tenderness. There is no right CVA tenderness or left CVA tenderness. Musculoskeletal: Right knee: Normal. Left knee: No swelling, deformity, erythema, ecchymosis or crepitus. Normal range of motion. Tenderness present over the medial joint line. Normal alignment, normal meniscus and normal patellar mobility. Neurological: Mental Status: She is alert. Psychiatric: Mood and Affect: Mood normal. ASSESSMENT/PLAN: 1. Medicare annual wellness visit, subsequent - ICD9: V70.0, ICD10: Z00.00 (primary diagnosis) See medicare wellness plan 2. Urinary frequency - ICD9: 788.41, ICD10: R35.0 Chronic, worsening - UA DIP, URINE (POC) showing only trace leuks - send BACTERIAL CULTURE, URINE - if culture negative consider scheduling follow-up with urogynecologist Dr. Pacheco 3. Acute pain of left knee - ICD9: 719.46, ICD10: M25.562 No acute findings on exam today. Pain is gradually improving - XR KNEE GENERAL 4V AP BOTH/PA BOTH/LAT/MERC LEFT 4. Injury of left knee, initial encounter - ICD9: 959.7, ICD10: S89.92XA As above - XR KNEE GENERAL 4V AP BOTH/PA BOTH/LAT/MERC LEFT 5. Essential hypertension - ICD9: 401.9, ICD10: I10 - Controlled - Continue current medications - Recommend home blood pressure monitoring, to bring results to next visit - Encouraged sodium restriction, DASH or Mediterranean diet 6. Anxiety - ICD9: 300.00, ICD10: F41.9 Stable 7. Depression, unspecified depression type - ICD9: 311, ICD10: F32.A Stable Marivel Dash APRN.RICHARD Medical Decision Making: Problems: Low: Acute, uncomplicated illness or injury Moderate: 2+ stable chronic illnesses Data: Unique test result(s) reviewed: 1 Unique test(s) ordered: 1 Risk: Low: Low risk from testing/treatment Moderate: Drug management Medical Decision Making Level: 4 - Moderate [facility] NoteHNO ID: [id number] Author: HUGO RO MD Service: ? Author Type: Physician Type: Progress Notes Filed: 08/16/2024 11:52 Note Text: This note was created using PeopleStringriter. Subjective Natali Mondragon is a 73 year old female. She was referred from to the ER for acute nausea, vomiting, and diarrhea 08/13/24. Labs were notable for elevated lipase, and pyuria. Patient had no urinary symptoms. CT scan of the abdomen and pelvis showed no acute process, and a right inguinal hernia. She was discharged to outpatient follow up and symptoms resolved. She had no history of abdominal pain. Review of Systems Constitutional: Negative for appetite change, chills, fatigue and fever. Respiratory: Negative for cough and shortness of breath. Cardiovascular: Negative for chest pain, palpitations and leg swelling. Gastrointestinal: Negative for abdominal pain, blood in stool, diarrhea, nausea and vomiting. Genitourinary: Negative for difficulty urinating and dysuria. Neurological: Negative for dizziness and headaches. ACTIVE PROBLEM LIST Depression Desirae (Obstructive Sleep Apnea) Tubular Adenoma Hyperlipemia Anxiety Osteopenia Impingement Syndrome of Right Shoulder Gastroesophageal Reflux Disease Essential Hypertension Urge Incontinence Impingement Syndrome of Left Shoulder Obesity, Class I, Bmi 30-34.9 Right Inguinal Hernia Social History Tobacco Use Smoking status: Former Types: Cigarettes Smokeless tobacco: Never Tobacco comments: very rarely when I was a teenager Vaping Use Vaping status: Never Used Substance Use Topics Alcohol use: Yes Comment: occasional wine with dinner Drug use: Yes Frequency: 7.0 times per week Types: Marijuana Comment: daily smokes 1/2 joint am and pm Current Outpatient Medications Medication Sig amLODIPine (NORVASC) 10 mg tablet Take 1 tablet by mouth once daily. omeprazole (PRILOSEC) 40 mg capsule Take 1 capsule by mouth once daily. PARoxetine (PAXIL) 40 mg tablet Take 1 tablet by mouth once daily. atorvastatin (LIPITOR) 10 mg tablet Take 1 tablet by mouth daily at bedtime. For cholesterol. vibegron (GEMTESA) 75 mg tablet Take 1 tablet by mouth once daily. Cholecalciferol, Vitamin D3, 1,000 unit cap Take 1 capsule by mouth once daily. calcium carbonate 600 mg-cholecalciferol 200 units (CALCIUM 600 + D,3,) 600 mg(1,500mg) -200 unit tab Take 1 tablet by mouth twice daily. ondansetron orally disintegrating (ZOFRAN ODT) 4 mg disintegrating tablet Take 1 tablet by mouth every 8 hours as needed for nausea/vomiting. No current facility-administered medications for this visit. Objective BP 118/62 (BP Site: Left Arm, BP Position: Sitting, BP Cuff Size: Large Adult) Pulse 84 Temp 36.7 ?C (98 ?F) (Temporal) Resp 20 Wt 66.4 kg (146 lb 6.2 oz) BMI 32.82 kg/m? Physical Exam Constitutional: General: She is not in acute distress. Appearance: She is not ill-appearing. Cardiovascular: Heart sounds: Normal heart sounds. Pulmonary: Breath sounds: Normal breath sounds. Abdominal: Palpations: Abdomen is soft. There is no mass. Tenderness: There is no abdominal tenderness. Hernia: No hernia is present. Comments: No hernia appreciated. Musculoskeletal: Right lower leg: No edema. Left lower leg: No edema. Neurological: Mental Status: She is alert. Assessment and Plan 1. Right inguinal hernia - ICD9: 550.90, ICD10: K40.90 (primary diagnosis) Observe for symptoms, pain in the right lower abdomen. No intervention needed at this time. 2. Nausea and vomiting, unspecified vomiting type - ICD9: 787.01, ICD10: R11.2 Resolving. - ONDANSETRON 4 MG DISINTEGRATING TABLET 3. Essential hypertension - ICD9: 401.9, ICD10: I10 - Controlled Hugo Ro [facility]02-06-2025 History of Present illness Narrative* Hugo Ro MD - 08/16/2024 11:40 AM EST This note was created using Daz 3d. Subjective Natali Mondragon is a 73 year old female. She was referred from to the ER for acute nausea, vomiting, and diarrhea 08/13/24. Labs were notable for elevated lipase, and pyuria. Patient had no urinary symptoms. CT scan of the abdomen and pelvis showed no acute process, and a right inguinal hernia. She was discharged to outpatient follow up and symptoms resolved. She had no history of abdominal pain. Review of Systems Constitutional: Negative for appetite change, chills, fatigue and fever. Respiratory: Negative for cough and shortness of breath. Cardiovascular: Negative for chest pain, palpitations and leg swelling. Gastrointestinal: Negative for abdominal pain, blood in stool, diarrhea, nausea and vomiting. Genitourinary: Negative for difficulty urinating and dysuria. Neurological: Negative for dizziness and headaches. ACTIVE PROBLEM LIST Depression Desirae (Obstructive Sleep Apnea) Tubular Adenoma Hyperlipemia Anxiety Osteopenia Impingement Syndrome of Right Shoulder Gastroesophageal Reflux Disease Essential Hypertension Urge Incontinence Impingement Syndrome of Left Shoulder Obesity, Class I, Bmi 30-34.9 Right Inguinal Hernia Social History Tobacco Use Smoking status: Former Types: Cigarettes Smokeless tobacco: Never Tobacco comments: very rarely when I was a teenager Vaping Use Vaping status: Never Used Substance Use Topics Alcohol use: Yes Comment: occasional wine with dinner Drug use: Yes Frequency: 7.0 times per week Types: Marijuana Comment: daily smokes 1/2 joint am and pm Current Outpatient Medications Medication Sig amLODIPine (NORVASC) 10 mg tablet Take 1 tablet by mouth once daily. omeprazole (PRILOSEC) 40 mg capsule Take 1 capsule by mouth once daily. PARoxetine (PAXIL) 40 mg tablet Take 1 tablet by mouth once daily. atorvastatin (LIPITOR) 10 mg tablet Take 1 tablet by mouth daily at bedtime. For cholesterol. vibegron (GEMTESA) 75 mg tablet Take 1 tablet by mouth once daily. Cholecalciferol, Vitamin D3, 1,000 unit cap Take 1 capsule by mouth once daily. calcium carbonate 600 mg-cholecalciferol 200 units (CALCIUM 600 + D,3,) 600 mg(1,500mg) -200 unit tab Take 1 tablet by mouth twice daily. ondansetron orally disintegrating (ZOFRAN ODT) 4 mg disintegrating tablet Take 1 tablet by mouth every 8 hours as needed for nausea/vomiting. No current facility-administered medications for this visit. Objective BP 118/62 (BP Site: Left Arm, BP Position: Sitting, BP Cuff Size: Large Adult) Pulse 84 Temp 36.7 C (98 F) (Temporal) Resp 20 Wt 66.4 kg (146 lb 6.2 oz) BMI 32.82 kg/m Physical Exam Constitutional: General: She is not in acute distress. Appearance: She is not ill-appearing. Cardiovascular: Heart sounds: Normal heart sounds. Pulmonary: Breath sounds: Normal breath sounds. Abdominal: Palpations: Abdomen is soft. There is no mass. Tenderness: There is no abdominal tenderness. Hernia: No hernia is present. Comments: No hernia appreciated. Musculoskeletal: Right lower leg: No edema. Left lower leg: No edema. Neurological: Mental Status: She is alert. Assessment and Plan 1. Right inguinal hernia - ICD9: 550.90, ICD10: K40.90 (primary diagnosis) Observe for symptoms, pain in the right lower abdomen. No intervention needed at this time. 2. Nausea and vomiting, unspecified vomiting type - ICD9: 787.01, ICD10: R11.2 Resolving. - ONDANSETRON 4 MG DISINTEGRATING TABLET 3. Essential hypertension - ICD9: 401.9, ICD10: I10 - Controlled Hugo Ro MD documented [facility] encounter[facility] NoteHNO ID: [id number] Author: MAURICE KAUR APRN.YARN HAULER Service: ? Author Type: Nurse Practitioner Type: Progress Notes Filed: 08/13/2024 18:04 Note Text: Came in with complaints of vomiting and diarrhea that started at 1 AM this morning. Patient says she feels very tired and weak. Patient says she has been able to keep down a few sips but not much. Patient says she has been pretty much consistently sitting on the toilet and vomiting at the same time since 1 AM. At this time I am more concerned for a possible dehydration. Labs are close here so patient is being referred to the emergency room for more thorough evaluation and some fluids. Patient's caregiver was agreeable will take her now.[facility]02[facility] History of Present illness Narrative* Maurice Kaur APRN.YARN HAULER - 08/13/2024 6:03 PM EST Came in with complaints of vomiting and diarrhea that started at 1 AM this morning. Patient says she feels very tired and weak. Patient says she has been able to keep down a few sips but not much. Patient says she has been pretty much consistently sitting on the toilet and vomiting at the same timesince 1 AM. At this time I am more concerned for a possible dehydration. Labs are close here so patient is being referred to the emergency room for more thorough evaluation and some fluids. Patient'scaregiver was agreeable will take her now. documented in this encounterMer[facility]11-[facility]24 NoteHNO ID: [id number] Author: HUGO RO MD Service: ? Author Type: Physician Type: Progress Notes Filed: 05/11/2024 08:53 Note Text: This note was created using PeopleStringriter. Subjective Patient presents with: Recheck: 2 week follow up-today woke up with headache Natali Mondragon is a 73 year old female. She was much better with residual cough and headache. Most other symptoms resolved. Review of Systems Constitutional: Negative for appetite change, chills and fever. Respiratory: Negative for shortness of breath. Gastrointestinal: Negative for abdominal pain, nausea and vomiting. Neurological: Negative for dizziness. ACTIVE PROBLEM LIST Depression Desirae (Obstructive Sleep Apnea) Tubular Adenoma Hyperlipemia Anxiety Osteopenia Impingement Syndrome of Right Shoulder Gastroesophageal Reflux Disease Essential Hypertension Urge Incontinence Impingement Syndrome of Left Shoulder Obesity, Class I, Bmi 30-34.9 Current Outpatient Medications Medication Sig ondansetron orally disintegrating (ZOFRAN ODT) 4 mg disintegrating tablet Take 1 tablet by mouth every 8 hours as needed for nausea/vomiting. amLODIPine (NORVASC) 10 mg tablet Take 1 tablet by mouth once daily. PARoxetine (PAXIL) 40 mg tablet Take 1 tablet by mouth once daily. atorvastatin (LIPITOR) 10 mg tablet Take 1 tablet by mouth daily at bedtime. For cholesterol. vibegron (GEMTESA) 75 mg tablet Take 1 tablet by mouth once daily. Cholecalciferol, Vitamin D3, 1,000 unit cap Take 1 capsule by mouth once daily. calcium carbonate 600 mg-cholecalciferol 200 units (CALCIUM 600 + D,3,) 600 mg(1,500mg) -200 unit tab Take 1 tablet by mouth twice daily. medroxyPROGESTERone (PROVERA) 2.5 mg tablet Take 2.5 mg by mouth once daily. Take 1 tablet by mouth once daily for 21 days, take 7 days off (Patient not taking: Reported on 05/11/2024) omeprazole (PRILOSEC) 40 mg capsule Take 1 capsule by mouth once daily. (Patient not taking: Reported on 05/11/2024) No current facility-administered medications for this visit. Objective BP 126/72 Pulse 83 Wt 66.7 kg (147 lb 0.8 oz) SpO2 97% BMI 32.97 kg/m? Physical Exam Constitutional: Appearance: Normal appearance. She is not ill-appearing. Cardiovascular: Heart sounds: Normal heart sounds. Pulmonary: Breath sounds: Normal breath sounds. Abdominal: Palpations: Abdomen is soft. Tenderness: There is no abdominal tenderness. Neurological: Mental Status: She is alert. Gait: Gait normal. Assessment and Plan 1. Nausea and vomiting, unspecified vomiting type - ICD9: 787.01, ICD10: R11.2 (primary diagnosis) Resolved. 2. Essential hypertension - ICD9: 401.9, ICD10: I10 - Controlled Hugo Ro [facility]11-01-2024 History of Present illness Narrative* Hugo Ro MD - 05/11/2024 8:42 AM EDT This note was created using PeopleStringriter. Subjective Patient presents with: Recheck: 2 week follow up-today woke up with headache Natali Mondragon is a 73 year old female. She was much better with residual cough and headache. Most other symptoms resolved. Review of Systems Constitutional: Negative for appetite change, chills and fever. Respiratory: Negative for shortness of breath. Gastrointestinal: Negative for abdominal pain, nausea and vomiting. Neurological: Negative for dizziness. ACTIVE PROBLEM LIST Depression Desirae (Obstructive Sleep Apnea) Tubular Adenoma Hyperlipemia Anxiety Osteopenia Impingement Syndrome of Right Shoulder Gastroesophageal Reflux Disease Essential Hypertension Urge Incontinence Impingement Syndrome of Left Shoulder Obesity, Class I, Bmi 30-34.9 Current Outpatient Medications Medication Sig ondansetron orally disintegrating (ZOFRAN ODT) 4 mg disintegrating tablet Take 1 tablet by mouth every 8 hours as needed for nausea/vomiting. amLODIPine (NORVASC) 10 mg tablet Take 1 tablet by mouth once daily. PARoxetine (PAXIL) 40 mg tablet Take 1 tablet by mouth once daily. atorvastatin (LIPITOR) 10 mg tablet Take 1 tablet by mouth daily at bedtime. For cholesterol. vibegron (GEMTESA) 75 mg tablet Take 1 tablet by mouth once daily. Cholecalciferol, Vitamin D3, 1,000 unit cap Take 1 capsule by mouth once daily. calcium carbonate 600 mg-cholecalciferol 200 units (CALCIUM 600 + D,3,) 600 mg(1,500mg) -200 unit tab Take 1 tablet by mouth twice daily. medroxyPROGESTERone (PROVERA) 2.5 mg tablet Take 2.5 mg by mouth once daily. Take 1 tablet by mouthonce daily for 21 days, take 7 days off (Patient not taking: Reported on 05/11/2024) omeprazole (PRILOSEC) 40 mg capsule Take 1 capsule by mouth once daily. (Patient not taking: Reported on 05/11/2024) No current facility-administered medications for this visit. Objective BP 126/72 Pulse 83 Wt 66.7 kg (147 lb 0.8 oz) SpO2 97% BMI 32.97 kg/m Physical Exam Constitutional: Appearance: Normal appearance. She is not ill-appearing. Cardiovascular: Heart sounds: Normal heart sounds. Pulmonary: Breath sounds: Normal breath sounds. Abdominal: Palpations: Abdomen is soft. Tenderness: There is no abdominal tenderness. Neurological: Mental Status: She is alert. Gait: Gait normal. Assessment and Plan 1. Nausea and vomiting, unspecified vomiting type - ICD9: 787.01, ICD10: R11.2 (primary diagnosis) Resolved. 2. Essential hypertension - ICD9: 401.9, ICD10: I10 - Controlled Hugo Ro MD documented in this encounterMer[facility]10-18-[facility]24 Instructions* Patient Instructions* Hugo Ro MD - 04/27/2024 2:19 PM EDT Labs today. Hydrate well. Go to ER if worse. documented in this encounterMer[facility]10-18-2024 NoteHNO ID: [id number] Author: HUGO RO MD Service: ? Author Type: Physician Type: Progress Notes Filed: 04/27/2024 16:28 Note Text: This note was created using Daz 3d. Subjective Natali Mondragon is a 73 year old female. She was baby sitting her granddaughter who came down with a viral illness. Her daughter was diagnosed with pneumonia. She then developed nausea with vomiting once, previously ingested food 1 week ago. Since then she has been having nausea, dry heaves, white phlegm, upper abdominal pain, weakness, and cough. She went to last week where chest X-ray was negative and Zofran prescribed. She was not better. Review of Systems Constitutional: Positive for appetite change and chills. Negative for diaphoresis, fatigue, fever and unexpected weight change. HENT: Negative for congestion, ear pain, hearing loss, sinus pain and sore throat. Respiratory: Positive for cough and shortness of breath. Negative for chest tightness and wheezing. Cardiovascular: Negative for chest pain, palpitations and leg swelling. Gastrointestinal: Positive for abdominal pain and nausea. Negative for blood in stool, constipation and diarrhea. Genitourinary: Negative for difficulty urinating and dysuria. Musculoskeletal: Negative for myalgias. Neurological: Positive for light-headedness. Negative for dizziness, tremors, weakness, numbness and headaches. ACTIVE PROBLEM LIST Depression Desirae (Obstructive Sleep Apnea) Tubular Adenoma Hyperlipemia Anxiety Osteopenia Impingement Syndrome of Right Shoulder Gastroesophageal Reflux Disease Essential Hypertension Urge Incontinence Impingement Syndrome of Left Shoulder Obesity, Class I, Bmi 30-34.9 Social History Tobacco Use Smoking status: Former Types: Cigarettes Smokeless tobacco: Never Tobacco comments: very rarely when I was a teenager Vaping Use Vaping status: Never Used Substance Use Topics Alcohol use: Yes Comment: occasional wine with dinner Drug use: Yes Frequency: 7.0 times per week Types: Marijuana Comment: daily smokes 1/2 joint am and pm Current Outpatient Medications Medication Sig ondansetron orally disintegrating (ZOFRAN ODT) 4 mg disintegrating tablet Take 1 tablet by mouth every 8 hours as needed for nausea/vomiting for up to 12 doses. medroxyPROGESTERone (PROVERA) 2.5 mg tablet Take 2.5 mg by mouth once daily. Take 1 tablet by mouth once daily for 21 days, take 7 days off amLODIPine (NORVASC) 10 mg tablet Take 1 tablet by mouth once daily. omeprazole (PRILOSEC) 40 mg capsule Take 1 capsule by mouth once daily. PARoxetine (PAXIL) 40 mg tablet Take 1 tablet by mouth once daily. atorvastatin (LIPITOR) 10 mg tablet Take 1 tablet by mouth daily at bedtime. For cholesterol. vibegron (GEMTESA) 75 mg tablet Take 1 tablet by mouth once daily. Cholecalciferol, Vitamin D3, 1,000 unit cap Take 1 capsule by mouth once daily. calcium carbonate 600 mg-cholecalciferol 200 units (CALCIUM 600 + D,3,) 600 mg(1,500mg) -200 unit tab Take 1 tablet by mouth twice daily. No current facility-administered medications for this visit. Objective BP 132/62 (BP Site: Left Arm, BP Position: Sitting, BP Cuff Size: Regular Adult) Pulse 88 Temp 37.1 ?C (98.8 ?F) Resp 18 Ht 142.2 cm (4' 8) Wt 64.5 kg (142 lb 3.2 oz) SpO2 94% BMI 31.88 kg/m? Physical Exam Constitutional: General: She is not in acute distress. Appearance: She is ill-appearing. She is not toxic-appearing or diaphoretic. HENT: Head: Normocephalic. Right Ear: Tympanic membrane normal. Left Ear: Tympanic membrane normal. Nose: No congestion or rhinorrhea. Mouth/Throat: Mouth: Mucous membranes are dry. Pharynx: No oropharyngeal exudate or posterior oropharyngeal erythema. Eyes: General: No scleral icterus. Conjunctiva/sclera: Conjunctivae normal. Cardiovascular: Rate and Rhythm: Normal rate and regular rhythm. Heart sounds: No murmur heard. No gallop. Pulmonary: Effort: Tachypnea present. No respiratory distress. Breath sounds: No wheezing or rales. Abdominal: General: Bowel sounds are normal. Palpations: Abdomen is soft. Tenderness: There is abdominal tenderness in the epigastric area. There is no right CVA tenderness, left CVA tenderness, guarding or rebound. Negative signs include Conner's sign. Musculoskeletal: Cervical back: Neck supple. Lymphadenopathy: Cervical: No cervical adenopathy. Skin: General: Skin is warm and dry. Findings: No rash. Neurological: General: No focal deficit present. Mental Status: She is alert. Gait: Gait normal. EKG RESULTS: normal EKG, normal sinus rhythm Latest Ref Rng 04/27/2024 GLUCOSE UA (POCT) Negative mg/dL Negative BILIRUBIN UA (POCT) Negative Negative KETONE UA (POCT) Negative mg/dL Negative SPECIFIC GRAVITY UA (POCT) 1.005 - 1.030 1.010 HEMOGLOBIN/BLOOD UA (POCT) Negative Negative PH UA (POCT) 4.5 - 8.0 6.5 PROTEIN UA (PO (more content not included)...[facility] 04-27-2024 History of Present illness Narrative* Hugo Ro MD - 04/27/2024 2:00 PM EDT This note was created using NoteWriter. Subjective Natali Mondragon is a 73 year old female. She was baby sitting her granddaughter who came down with a viral illness. Her daughter was diagnosed with pneumonia. She then developed nausea with vomiting once, previously ingested food 1 week ago. Since then she has been having nausea, dry heaves, white phlegm, upper abdominal pain, weakness, and cough. She went to last week where chest X-ray was negative and Zofran prescribed. She was not better. Review of Systems Constitutional: Positive for appetite change and chills. Negative for diaphoresis, fatigue, fever and unexpected weight change. HENT: Negative for congestion, ear pain, hearing loss, sinus pain and sore throat. Respiratory: Positive for cough and shortness of breath. Negative for chest tightness and wheezing. Cardiovascular: Negative for chest pain, palpitations and leg swelling. Gastrointestinal: Positive for abdominal pain and nausea. Negative for blood in stool, constipationand diarrhea. Genitourinary: Negative for difficulty urinating and dysuria. Musculoskeletal: Negative for myalgias. Neurological: Positive for light-headedness. Negative for dizziness, tremors, weakness, numbness and headaches. ACTIVE PROBLEM LIST Depression Desirae (Obstructive Sleep Apnea) Tubular Adenoma Hyperlipemia Anxiety Osteopenia Impingement Syndrome of Right Shoulder Gastroesophageal Reflux Disease Essential Hypertension Urge Incontinence Impingement Syndrome of Left Shoulder Obesity, Class I, Bmi 30-34.9 Social History Tobacco Use Smoking status: Former Types: Cigarettes Smokeless tobacco: Never Tobacco comments: very rarely when I was a teenager Vaping Use Vaping status: Never Used Substance Use Topics Alcohol use: Yes Comment: occasional wine with dinner Drug use: Yes Frequency: 7.0 times per week Types: Marijuana Comment: daily smokes 1/2 joint am and pm Current Outpatient Medications Medication Sig ondansetron orally disintegrating (ZOFRAN ODT) 4 mg disintegrating tablet Take 1 tablet by mouth every 8 hours as needed for nausea/vomiting for up to 12 doses. medroxyPROGESTERone (PROVERA) 2.5 mg tablet Take 2.5 mg by mouth once daily. Take 1 tablet by mouthonce daily for 21 days, take 7 days off amLODIPine (NORVASC) 10 mg tablet Take 1 tablet by mouth once daily. omeprazole (PRILOSEC) 40 mg capsule Take 1 capsule by mouth once daily. PARoxetine (PAXIL) 40 mg tablet Take 1 tablet by mouth once daily. atorvastatin (LIPITOR) 10 mg tablet Take 1 tablet by mouth daily at bedtime. For cholesterol. vibegron (GEMTESA) 75 mg tablet Take 1 tablet by mouth once daily. Cholecalciferol, Vitamin D3, 1,000 unit cap Take 1 capsule by mouth once daily. calcium carbonate 600 mg-cholecalciferol 200 units (CALCIUM 600 + D,3,) 600 mg(1,500mg) -200 unit tab Take 1 tablet by mouth twice daily. No current facility-administered medications for this visit. Objective BP 132/62 (BP Site: Left Arm, BP Position: Sitting, BP Cuff Size: Regular Adult) Pulse 88 Temp 37.1 C (98.8 F) Resp 18 Ht 142.2 cm (4' 8) Wt 64.5 kg (142 lb 3.2 oz) SpO2 94% BMI 31.88 kg/m Physical Exam Constitutional: General: She is not in acute distress. Appearance: She is ill-appearing. She is not toxic-appearing or diaphoretic. HENT: Head: Normocephalic. Right Ear: Tympanic membrane normal. Left Ear: Tympanic membrane normal. Nose: No congestion or rhinorrhea. Mouth/Throat: Mouth: Mucous membranes are dry. Pharynx: No oropharyngeal exudate or posterior oropharyngeal erythema. Eyes: General: No scleral icterus. Conjunctiva/sclera: Conjunctivae normal. Cardiovascular: Rate and Rhythm: Normal rate and regular rhythm. Heart sounds: No murmur heard. No gallop. Pulmonary: Effort: Tachypnea present. No respiratory distress. Breath sounds: No wheezing or rales. Abdominal: General: Bowel sounds are normal. Palpations: Abdomen is soft. Tenderness: There is abdominal tenderness in the epigastric area. There is no right CVA tenderness,left CVA tenderness, guarding or rebound. Negative signs include Conner's sign. Musculoskeletal: Cervical back: Neck supple. Lymphadenopathy: Cervical: No cervical adenopathy. Skin: General: Skin is warm and dry. Findings: No rash. Neurological: General: No focal deficit present. Mental Status: She is alert. Gait: Gait normal. EKG RESULTS: normal EKG, normal sinus rhythm Latest Ref Rng 04/27/2024 GLUCOSE UA (POCT) Negative mg/dL Negative BILIRUBIN UA (POCT) Negative Negative KETONE UA (POCT) Negative mg/dL Negative SPECIFIC GRAVITY UA (POCT) 1.005 - 1.030 1.010 HEMOGLOBIN/BLOOD UA (POCT) Negative Negative PH UA (POCT) 4.5 - 8.0 6.5 PROTEIN UA (POCT) Negative mg/dL Negative UROBILINOGEN UA (POCT) Normal E.U./dL 0.2 NITRITE UA (POCT) Negative Negative LEUKOCYTES UA (POCT) Negative Negative COLOR UA (POCT) Yellow CLARITY UA (POCT) Clear Assessment and Plan 1. Nausea and vomiting, unspecified vomiting type - ICD9: 787.01, ICD10: R11.2 (primary diagnosis) Etiology not clear. - COMPLETE BLOOD COUNT - COMPREHENSIVE METABOLIC PANEL - LIPASE - ONDANSETRON 4 MG DISINTEGRATING TABLET 2. Epigastric pain - ICD9: 789.06, ICD10: R10.13 Etiology unclear - ECG COMPLETE - UA DIP, URINE (POC) - COMPLETE BLOOD COUNT - COMPREHENSIVE METABOLIC PANEL - LIPASE 3. Dyspnea, unspecified type - ICD9: 786.09, ICD10: R06.00 - Due to illness. 4. Dehydration - ICD9: 276.51, ICD10: E86.0 - Advised ER if worse. She may need IV fluids. Labs today. Hugo Ro MD documented [facility] History of Present illness Narrative* Hardik Parker, RT(R) - 04/19/2024 5:20 PM EDT Radiology Service Progress Note PATIENT NAME: Natali Mondragon DATE OF SERVICE: April 19, 2024 TIME: 5:29 PM PATIENT IDENTITY VERIFICATION COMPLETED USING TWO (2) IDENTIFIERS: Name and Date of confirmedby patient verbally. FALL SCREENING: Has the patient had 2 falls in the last year or 1 fall with injury or currently using an Ambulatory Assistive Device (Walker, Cane, Wheelchair, Crutches, etc.)? No PATIENT GENDER DATA: Female. status: : No status: NO. PATIENT RELEVANT IMPLANT DATA REVIEWED: Yes PATIENT PRESENTS WITH AN IMPLANTABLE OR ATTACHED MANAGER PHOTO: No RADIOLOGY DEPARTMENT: General X-ray: Exam(s) Completed: Chest X-Ray PERIPHERAL IV DATA: Not applicable SIGNED BY: RT Rocky(Rossana) April 19, 2024 5:29 PM documented in this encounterMer[facility]10-10-2024 NoteHNO ID: [id number] Author: HARDIK PARKER RT(R) Service: ? Author Type: Printing Equipment Mechanic Apprentice Type: Progress Notes Filed: 04/19/2024 17:36 Note Text: Radiology Service Progress Note PATIENT NAME: Natali Mondragon DATE OF SERVICE: April 19, 2024 TIME: 5:29 PM PATIENT IDENTITY VERIFICATION COMPLETED USING TWO (2) IDENTIFIERS: Name and Date of confirmed by patient verbally. FALL SCREENING: Has the patient had 2 falls in the last year or 1 fall with injury or currently using an Ambulatory Assistive Device (Walker, Cane, Wheelchair, Crutches, etc.)? No PATIENT GENDER DATA: Female. status: : No status: NO. PATIENT RELEVANT IMPLANT DATA REVIEWED: Yes PATIENT PRESENTS WITH AN IMPLANTABLE OR ATTACHED MANAGER PHOTO: No RADIOLOGY DEPARTMENT: General X-ray: Exam(s) Completed: Chest X-Ray PERIPHERAL IV DATA: Not applicable SIGNED BY: ANNELISE Hidalgo) April 19, 2024 5:29 [facility]10-10-2024 NoteHNO ID: [id number] Author: FRANCINE CALLAWAY APRN.[facility] [facility] Service: ? Author Type: Nurse Practitioner Type: Progress Notes Filed: 04/19/2024 17:50 Note Text: This note was created using PeopleStringriter. Subjective Natali Mondragon is a 73 year old female. HPI Pt's daughter has pneumonia and her grand daughter has croup. Pt worried that she may have pneumonia. Pt has been nauseated for the last five days. Review of Systems Constitutional: Negative for fever. HENT: Negative for congestion, rhinorrhea and sore throat. Respiratory: Negative for cough. Gastrointestinal: Positive for nausea. Objective BP 142/78 Pulse 88 Temp 37.1 ?C (98.8 ?F) Resp 22 Wt 65 kg (143 lb 4.8 oz) SpO2 99% BMI 31.79 kg/m? Physical Exam Vitals and nursing note reviewed. Constitutional: General: She is not in acute distress. Appearance: Normal appearance. She is not ill-appearing. HENT: Head: Normocephalic. Mouth/Throat: Mouth: Mucous membranes are moist. Eyes: Conjunctiva/sclera: Conjunctivae normal. Cardiovascular: Rate and Rhythm: Normal rate and regular rhythm. Pulmonary: Effort: Pulmonary effort is normal. Breath sounds: Normal breath sounds. Musculoskeletal: General: Normal range of motion. Cervical back: Normal range of motion. Skin: General: Skin is warm and dry. Neurological: General: No focal deficit present. Mental Status: She is alert. Psychiatric: Mood and Affect: Mood normal. Behavior: Behavior normal. Assessment and Plan ASSESSMENT/PLAN: 1. Nausea - ICD9: 787.02, ICD10: R11.0 As patient was worried about possible pneumonia chest x-ray was ordered which was unremarkable. She was given a prescription for Zofran to use for her nausea. I do feel her symptoms are more consistent with a mild viral gastritis. - XR CHEST 2V FRONTAL/LAT - ONDANSETRON 4 MG DISINTEGRATING TABLET Francine Callaway APRN.[facility]10-10-2024 History of Present illness Narrative* Francine Callaway APRN.YARN HAULER - 04/19/2024 5:07 PM EDT This note was created using Gati Infrastructureter. Subjective Natali Mondragon is a 73 year old female. HPI Pt's daughter has pneumonia and her grand daughter has croup. Pt worried that she may have pneumonia. Pt has been nauseated for the last five days. Review of Systems Constitutional: Negative for fever. HENT: Negative for congestion, rhinorrhea and sore throat. Respiratory: Negative for cough. Gastrointestinal: Positive for nausea. Objective BP 142/78 Pulse 88 Temp 37.1 C (98.8 F) Resp 22 Wt 65 kg (143 lb 4.8 oz) SpO2 99% BMI 31.79 kg/m Physical Exam Vitals and nursing note reviewed. Constitutional: General: She is not in acute distress. Appearance: Normal appearance. She is not ill-appearing. HENT: Head: Normocephalic. Mouth/Throat: Mouth: Mucous membranes are moist. Eyes: Conjunctiva/sclera: Conjunctivae normal. Cardiovascular: Rate and Rhythm: Normal rate and regular rhythm. Pulmonary: Effort: Pulmonary effort is normal. Breath sounds: Normal breath sounds. Musculoskeletal: General: Normal range of motion. Cervical back: Normal range of motion. Skin: General: Skin is warm and dry. Neurological: General: No focal deficit present. Mental Status: She is alert. Psychiatric: Mood and Affect: Mood normal. Behavior: Behavior normal. Assessment and Plan ASSESSMENT/PLAN: 1. Nausea - ICD9: 787.02, ICD10: R11.0 As patient was worried about possible pneumonia chest x-ray was ordered which was unremarkable. Shewas given a prescription for Zofran to use for her nausea. I do feel her symptoms are more consistent with a mild viral gastritis. - XR CHEST 2V FRONTAL/LAT - ONDANSETRON 4 MG DISINTEGRATING TABLET Francine Callaway APRN.[facility]ARN HAULER documented in this encounterMer[facility]07-12-2024 NoteHNO ID: [id number] Author: GI WESTBROOK MA Service: ? Author Type: Gas Cutter Type: Progress Notes Filed: 01/20/2024 12:19 Note Text: POPULATION HEALTH NAVIGATION OUTREACH Action/FYI Patient outreach for [place] Medication Adherence Medication(s) Reviewed: ATORVASTATIN 10 MG TABLET Next fill date: 01/04/2024 Outcome: Per Medication Dispense History patient has filled the above prescription(s) on 01/06/2024. No patient outreach needed. Reason for Outreach Med Adherence Patient Contacted: No outreach needed: RX filled per reconcile dispense Navigation Signature: Gi Westbrook MA January 20, 2024 12:10 [facility]07-12-2024 History of Present illness Narrative* Gi Westbrook MA - 01/20/2024 12:10 PM EDT POPULATION HEALTH NAVIGATION OUTREACH Action/FYI Patient outreach for [place] Medication Adherence Medication(s) Reviewed: ATORVASTATIN 10 MG TABLET Next fill date: 01/04/2024 Outcome: Per Medication Dispense History patient has filled the above prescription(s) on 01/06/2024. No patient outreach needed. Reason for Outreach Med Adherence Patient Contacted: No outreach needed: RX filled per reconcile dispense Navigation Signature: Gi Westbrook MA January 20, 2024 12:10 PM documented in this encounterMer[facility]07-12-2024 NotePatient Outreach (NETNAV) NATALI MONDRAGON ([id number]) 1950 F Date Time Provider Department 01/20/24 [facility] During your visit today, we recorded the following information about you: Gi Westbrook MA 01/20/2024 12:19 PM Signed POPULATION HEALTH NAVIGATION OUTREACH Action/FYI Patient outreach for [place] Medication Adherence Medication(s) Reviewed: ATORVASTATIN 10 MG TABLET Next fill date: 01/04/2024 Outcome: Per Medication Dispense History patient has filled the above prescription(s) on 01/06/2024. No patient outreach needed. Reason for Outreach Med Adherence Patient Contacted: No outreach needed: RX filled per reconcile dispense Navigation Signature: Gi Westbrook MA January 20, 2024 12:10 PM Allergies As of Date: 01/20/2024 (No Known Allergies) Date Reviewed: 01/18/2024 Reviewed by: Xiomara Early LPN - Fully Assessed Reason for Visit: Population Health Navigation Outreach [[id number]] Cmt: [place] Med Adherence Prescriptions as of 01/20/2024 - medroxyPROGESTERone (PROVERA) 2.5 mg tablet Take 2.5 mg by mouth once daily. Take 1 tablet by mouth once daily for 21 days, take 7 days off - amLODIPine (NORVASC) 10 mg tablet Take 1 tablet by mouth once daily. - omeprazole (PRILOSEC) 40 mg capsule Take 1 capsule by mouth once daily. - PARoxetine (PAXIL) 40 mg tablet Take 1 tablet by mouth once daily. - atorvastatin (LIPITOR) 10 mg tablet Take 1 tablet by mouth daily at bedtime. For cholesterol. - vibegron (GEMTESA) 75 mg tablet Take 1 tablet by mouth once daily. - Cholecalciferol, Vitamin D3, 1,000 unit cap Take 1 capsule by mouth once daily. - calcium carbonate 600 mg-cholecalciferol 200 units (CALCIUM 600 + D,3,) 600 mg(1,500mg) -200 unit tab Take 1 tablet by mouth twice daily. Meds Comments as of 08/18/2011: Problem List As Of Date 01/20/2024 Noted Resolved HIGH BLOOD PRESSURE-NO HYPERTENSN [R03.0] 01/10/2008 04/09/2016 Exostosis of unspecified site [M89.8X9] 01/18/2008 04/28/2015 Neuralgia, neuritis, and radiculitis, unspecifi*01/18/2008 04/28/2015 Unspecified sleep apnea [G47.30] 01/14/2009 04/28/2015 HYPERLIPIDEMIA [E78.5] 01/14/2009 12/01/2015 Depression [F32.A] 07/14/2009 DESIRAE (obstructive sleep apnea) [G47.33] 11/11/2009 Lumbago [M54.50] 04/16/2011 01/18/2024 Enthesopathy of unspecified site [M77.9] 06/29/2011 12/01/2015 Pain in limb [M79.609] 07/16/2011 12/01/2015 Special screening for malignant neoplasms, colo*11/17/2011 01/18/2024 Tubular adenoma [D36.9] 02/25/2012 Hyperlipemia [E78.5] 10/03/2013 Breast screening, unspecified [Z12.39] 09/06/2014 12/01/2015 Anxiety [F41.9] 04/28/2015 Primary osteoarthritis of right knee [M17.11] 07/28/2015 05/24/2022 Pain in right knee [M25.561] 07/28/2015 08/10/2017 Obesity, Class II, BMI 35-39.9 [E66.9] 03/29/2018 05/24/2022 Osteopenia [M85.80] 04/22/2016 Impingement syndrome of right shoulder [M75.41] 08/10/2017 Arthritis of midfoot [M19.079] 08/10/2017 01/18/2024 Gastroesophageal reflux disease [K21.9] 03/29/2018 Essential hypertension [I10] 02/22/2019 Knee injuries, left, initial encounter [S89.92X*07/08/2020 10/21/2020 Urge incontinence [N39.41] 10/23/2020 Impingement syndrome of left shoulder [M75.42] 2021 Obesity, Class I, BMI 30-34.9 [E66.9] 05/24/2022 Encounter Status:Closed by GI WESTBROOK on 01/20/24[facility] 01-18-2024 Instructions* Patient Instructions* Hugo Ro MD - 01/18/2024 11:04 AM EDT Recombinant shingles vaccine (Shingrix) is recommended; 2 doses 2-6 months apart. Please read information, check with your insurance, and schedule vaccination at your local pharmacy. A prescription is not required. If you are certain you have coverage to receive this vaccine in the office, we can schedule this for you. documented in this encounterMer[facility]07-10-2024 NoteHNO ID: [id number] Author: HUGO RO MD Service: ? Author Type: Physician Type: Progress Notes Filed: 01/18/2024 11:17 Note Text: This note was created using Daz 3d. Subjective Natali Mondragon is a 73 year old female. She was doing well. Her hypertension, lipids, anxiety, and depression were controlled. We reviewed her colonoscopy. She declined vaccinations at this time. She had chronic shoulder pains, relieved by exercises and the left was more symptomatic at this time. Review of Systems Constitutional: Negative for fatigue and fever. Respiratory: Negative for chest tightness and shortness of breath. Cardiovascular: Positive for leg swelling. Negative for chest pain and palpitations. Gastrointestinal: Negative for abdominal pain, constipation and diarrhea. Musculoskeletal: Positive for arthralgias. Negative for back pain, myalgias and neck pain. Neurological: Negative for dizziness and headaches. Psychiatric/Behavioral: Negative for dysphoric mood. The patient is not nervous/anxious. ACTIVE PROBLEM LIST Depression Desirae (Obstructive Sleep Apnea) Tubular Adenoma Hyperlipemia Anxiety Osteopenia Impingement Syndrome of Right Shoulder Gastroesophageal Reflux Disease Essential Hypertension Urge Incontinence Impingement Syndrome of Left Shoulder Obesity, Class I, Bmi 30-34.9 Social History Tobacco Use Smoking status: Former Types: Cigarettes Smokeless tobacco: Never Tobacco comments: very rarely when I was a teenager Vaping Use Vaping Use: Never used Substance Use Topics Alcohol use: Yes Comment: occasional wine with dinner Drug use: Yes Frequency: 7.0 times per week Types: Marijuana Comment: daily smokes 1/2 joint am and pm Current Outpatient Medications Medication Sig medroxyPROGESTERone (PROVERA) 2.5 mg tablet Take 2.5 mg by mouth once daily. Take 1 tablet by mouth once daily for 21 days, take 7 days off atorvastatin (LIPITOR) 10 mg tablet Take 1 tablet by mouth daily at bedtime. For cholesterol. PARoxetine (PAXIL) 40 mg tablet Take 1 tablet by mouth once daily. omeprazole (PRILOSEC) 40 mg capsule Take 1 capsule by mouth once daily. amLODIPine (NORVASC) 10 mg tablet Take 1 tablet by mouth once daily. vibegron (GEMTESA) 75 mg tablet Take 1 tablet by mouth once daily. Cholecalciferol, Vitamin D3, 1,000 unit cap Take 1 capsule by mouth once daily. calcium carbonate 600 mg-cholecalciferol 200 units (CALCIUM 600 + D,3,) 600 mg(1,500mg) -200 unit tab Take 1 tablet by mouth twice daily. No current facility-administered medications for this visit. Objective BP 120/74 (BP Site: Left Arm, BP Position: Sitting, BP Cuff Size: Large Adult) Pulse 84 Temp 36.7 ?C (98 ?F) (Temporal) Resp 18 Wt 64.4 kg (142 lb) BMI 31.50 kg/m? Physical Exam Constitutional: Appearance: Normal appearance. HENT: Head: Normocephalic. Eyes: Conjunctiva/sclera: Conjunctivae normal. Cardiovascular: Rate and Rhythm: Normal rate and regular rhythm. Heart sounds: No murmur heard. No gallop. Pulmonary: Breath sounds: Normal breath sounds. Abdominal: Tenderness: There is no abdominal tenderness. Musculoskeletal: General: No tenderness. Normal range of motion. Right lower leg: No edema. Left lower leg: No edema. Neurological: Mental Status: She is alert. Gait: Gait normal. Psychiatric: Mood and Affect: Mood normal. Latest Ref Rng 12/27/2023 Protein, Total 6.3 - 8.0 g/dL 7.0 Albumin 3.9 - 4.9 g/dL 4.4 Calcium 8.5 - 10.2 mg/dL 10.3 (H) Bilirubin, Total 0.2 - 1.3 mg/dL 0.4 Alkaline Phosphatase 34 - 123 U/L 72 AST 13 - 35 U/L 18 ALT 7 - 38 U/L 14 Glucose 74 - 99 mg/dL 96 BUN 7 - 21 mg/dL 14 Creatinine 0.58 - 0.96 mg/dL 0.85 Sodium 136 - 144 mmol/L 142 Potassium 3.7 - 5.1 mmol/L 4.4 Chloride 98 - 107 mmol/L 108 (H) CO2 22 - 30 mmol/L 21 (L) Anion Gap 8 - 15 mmol/L 13 eGFR >=60 mL/min/1.73m? 72 WBC 3.70 - 11.00 k/uL 7.46 RBC 3.90 - 5.20 m/uL 4.46 Hemoglobin 11.5 - 15.5 g/dL 13.9 Hematocrit 36.0 - 46.0 % 39.9 MCV 80.0 - 100.0 fL 89.5 MCH 26.0 - 34.0 pg 31.2 MCHC 30.5 - 36.0 g/dL 34.8 RDW-CV 11.5 - 15.0 % 12.7 Platelet Count 150 - 400 k/uL 235 MPV 9.0 - 12.7 fL 11.0 Absolute nRBC <0.01 k/uL <0.01 Cholesterol, Total <200 mg/dL 162 Triglyceride <150 mg/dL 70 HDL Cholesterol >39 mg/dL 57 Non HDL Cholesterol <130 mg/dL 105 Fasting Time hrs 12 VLDL Cholesterol <30 mg/dL 14 TC:HDL Ratio <5.10 2.84 LDL Cholesterol <100 mg/dL 91 LDL:HDL Ratio <2.54 1.60 Legend: (H) High (L) Low Assessment and Plan 1. Essential hypertension - ICD9: 401.9, ICD10: I10 - Controlled - Continue current medications - Encouraged sodium restriction, DASH or Mediterranean diet - Recommend regular aerobic exercise - AMLODIPINE 10 MG TABLET 2. Gastroesophageal reflux disease, unspecified whether esophagitis present - ICD9: 530.81, ICD10: K21.9 - Continue treatment OMEPRAZOLE 40 MG CAPSULE,DEL (more content not included)... [facility]07-10-2024 History of Present illness Narrative* Hugo Ro MD - 01/18/2024 10:51 AM EDT This note was created using Daz 3d. Subjective Natali Mondragon is a 73 year old female. She was doing well. Her hypertension, lipids, anxiety, and depression were controlled. We reviewed her colonoscopy. She declined vaccinations at this time. She had chronic shoulder pains, relieved by exercises and the left was more symptomatic at this time. Review of Systems Constitutional: Negative for fatigue and fever. Respiratory: Negative for chest tightness and shortness of breath. Cardiovascular: Positive for leg swelling. Negative for chest pain and palpitations. Gastrointestinal: Negative for abdominal pain, constipation and diarrhea. Musculoskeletal: Positive for arthralgias. Negative for back pain, myalgias and neck pain. Neurological: Negative for dizziness and headaches. Psychiatric/Behavioral: Negative for dysphoric mood. The patient is not nervous/anxious. ACTIVE PROBLEM LIST Depression Desirae (Obstructive Sleep Apnea) Tubular Adenoma Hyperlipemia Anxiety Osteopenia Impingement Syndrome of Right Shoulder Gastroesophageal Reflux Disease Essential Hypertension Urge Incontinence Impingement Syndrome of Left Shoulder Obesity, Class I, Bmi 30-34.9 Social History Tobacco Use Smoking status: Former Types: Cigarettes Smokeless tobacco: Never Tobacco comments: very rarely when I was a teenager Vaping Use Vaping Use: Never used Substance Use Topics Alcohol use: Yes Comment: occasional wine with dinner Drug use: Yes Frequency: 7.0 times per week Types: Marijuana Comment: daily smokes 1/2 joint am and pm Current Outpatient Medications Medication Sig medroxyPROGESTERone (PROVERA) 2.5 mg tablet Take 2.5 mg by mouth once daily. Take 1 tablet by mouthonce daily for 21 days, take 7 days off atorvastatin (LIPITOR) 10 mg tablet Take 1 tablet by mouth daily at bedtime. For cholesterol. PARoxetine (PAXIL) 40 mg tablet Take 1 tablet by mouth once daily. omeprazole (PRILOSEC) 40 mg capsule Take 1 capsule by mouth once daily. amLODIPine (NORVASC) 10 mg tablet Take 1 tablet by mouth once daily. vibegron (GEMTESA) 75 mg tablet Take 1 tablet by mouth once daily. Cholecalciferol, Vitamin D3, 1,000 unit cap Take 1 capsule by mouth once daily. calcium carbonate 600 mg-cholecalciferol 200 units (CALCIUM 600 + D,3,) 600 mg(1,500mg) -200 unit tab Take 1 tablet by mouth twice daily. No current facility-administered medications for this visit. Objective BP 120/74 (BP Site: Left Arm, BP Position: Sitting, BP Cuff Size: Large Adult) Pulse 84 Temp 36.7 C (98 F) (Temporal) Resp 18 Wt 64.4 kg (142 lb) BMI 31.50 kg/m Physical Exam Constitutional: Appearance: Normal appearance. HENT: Head: Normocephalic. Eyes: Conjunctiva/sclera: Conjunctivae normal. Cardiovascular: Rate and Rhythm: Normal rate and regular rhythm. Heart sounds: No murmur heard. No gallop. Pulmonary: Breath sounds: Normal breath sounds. Abdominal: Tenderness: There is no abdominal tenderness. Musculoskeletal: General: No tenderness. Normal range of motion. Right lower leg: No edema. Left lower leg: No edema. Neurological: Mental Status: She is alert. Gait: Gait normal. Psychiatric: Mood and Affect: Mood normal. Latest Ref Rn 12/27/2023 Protein, Total 6.3 - 8.0 g/dL 7.0 Albumin 3.9 - 4.9 g/dL 4.4 Calcium 8.5 - 10.2 mg/dL 10.3 (H) Bilirubin, Total 0.2 - 1.3 mg/dL 0.4 Alkaline Phosphatase 34 - 123 U/L 72 AST 13 - 35 U/L 18 ALT 7 - 38 U/L 14 Glucose 74 - 99 mg/dL 96 BUN 7 - 21 mg/dL 14 Creatinine 0.58 - 0.96 mg/dL 0.85 Sodium 136 - 144 mmol/L 142 Potassium 3.7 - 5.1 mmol/L 4.4 Chloride 98 - 107 mmol/L 108 (H) CO2 22 - 30 mmol/L 21 (L) Anion Gap 8 - 15 mmol/L 13 eGFR >=60 mL/min/1.73m 72 WBC 3.70 - 11.00 k/uL 7.46 RBC 3.90 - 5.20 m/uL 4.46 Hemoglobin 11.5 - 15.5 g/dL 13.9 Hematocrit 36.0 - 46.0 % 39.9 MCV 80.0 - 100.0 fL 89.5 MCH 26.0 - 34.0 pg 31.2 MCHC 30.5 - 36.0 g/dL 34.8 RDW-CV 11.5 - 15.0 % 12.7 Platelet Count 150 - 400 k/uL 235 MPV 9.0 - 12.7 fL 11.0 Absolute nRBC <0.01 k/uL <0.01 Cholesterol, Total <200 mg/dL 162 Triglyceride <150 mg/dL 70 HDL Cholesterol >39 mg/dL 57 Non HDL Cholesterol <130 mg/dL 105 Fasting Time hrs 12 VLDL Cholesterol <30 mg/dL 14 TC:HDL Ratio <5.10 2.84 LDL Cholesterol <100 mg/dL 91 LDL:HDL Ratio <2.54 1.60 Legend: (H) High (L) Low Assessment and Plan 1. Essential hypertension - ICD9: 401.9, ICD10: I10 - Controlled - Continue current medications - Encouraged sodium restriction, DASH or Mediterranean diet - Recommend regular aerobic exercise - AMLODIPINE 10 MG TABLET 2. Gastroesophageal reflux disease, unspecified whether esophagitis present - ICD9: 530.81, ICD10: K21.9 - Continue treatment OMEPRAZOLE 40 MG CAPSULE,DELAYED RELEASE 3. Anxiety - ICD9: 300.00, ICD10: F41.9 - Controlled. Continue medication. - PAROXETINE 40 MG TABLET 4. Depression, unspecified depression type - ICD9: 311, ICD10: F32.A - Controlled. Continue medication. - PAROXETINE 40 MG TABLET Hugo Ro MD documented [facility] Telephone encounter Note * Telephone Encounter - Ricarda Alvarenga - 01/05/2024 10:01 AM EDT Prescription Refill Information The patient has been identified by name and date of : Yes Caregiver verified no other encounters exist for this prescription request: Yes Caregiver confirmed with patient/requestor that no other refills are due, in the near future, with this provider at this time: Yes The last office visit in the department: 07/14/23 Does the patient have a future office visit with this provider/department: Yes Requested Prescriptions Pending Prescriptions Disp Refills atorvastatin (LIPITOR) 10 mg tablet 90 tablet 3 Sig: Take 1 tablet by mouth daily at bedtime. For cholesterol. Ricarda Back January 05, 2024 10:01 AM [facility]-27[facility] Miscellaneous Notes* Telephone Encounter - Ricarda Alvarenga - 01/05/2024 10:01 AM EDT Prescription Refill Information The patient has been identified by name and date of : Yes Caregiver verified no other encounters exist for this prescription request: Yes Caregiver confirmed with patient/requestor that no other refills are due, in the near future, with this provider at this time: Yes The last office visit in the department: 07/14/23 Does the patient have a future office visit with this provider/department: Yes Requested Prescriptions Pending Prescriptions Disp Refills atorvastatin (LIPITOR) 10 mg tablet 90 tablet 3 Sig: Take 1 tablet by mouth daily at bedtime. For cholesterol. Ricarda Back January 05, 2024 10:01 AM documented in this encounterMer[facility]04-01-2024 History of Present illness Narrative* Shahnaz Medina RT(R) - 10/10/2023 8:00 AM EDT Radiology Service Progress Note PATIENT NAME: Natali Mondragon DATE OF SERVICE: October 10, 2023 TIME: 8:08 AM PATIENT IDENTITY VERIFICATION COMPLETED USING TWO (2) IDENTIFIERS: Name and Date of confirmedby patient verbally. FALL SCREENING: Has the patient had 2 falls in the last year or 1 fall with injury or currently using an Ambulatory Assistive Device (Walker, Cane, Wheelchair, Crutches, etc.)? No PATIENT GENDER DATA: Female. status: : No status: NO. PATIENT RELEVANT IMPLANT DATA REVIEWED: Yes PATIENT PRESENTS WITH AN IMPLANTABLE OR ATTACHED MANAGER PHOTO: No RADIOLOGY DEPARTMENT: General X-ray: Exam(s) Completed: Rib X-Ray: Right PERIPHERAL IV DATA: Not applicable SIGNED BY: RT Elda(R) October 10, 2023 8:08 AM documented in this encounterMer[facility]04-01-2024 History of Present illness Narrative* Latisha Jansen PA-C - 10/10/2023 7:57 AM EDT This note was created using PeopleStringriter. Subjective Natali Mondragon is a 72 year old female. HPI Patient presents with a chief complaint of right rib pain. She states she was bending over a large cardboard box when she felt a pull in her ribs. She states it was radiating up to her shoulder yesterday but that seems to improve today. She does have pain with movement and breathing. No shortness of breath. No cough or fever. She does have osteopenia. She did take 3 ibuprofen yesterday which did help some. Review of Systems Constitutional: Negative. HENT: Negative. Respiratory: Negative. Cardiovascular: Right rib pain Gastrointestinal: Negative. Genitourinary: Negative. All other systems reviewed and are negative. PAST MEDICAL HISTORY Diagnosis Date Anxiety 04/28/2015 Arthritis Benign neoplasm of colon Coronary artery disease Depression 07/14/2009 Diffuse cystic mastopathy fibrocystic breast disease Esophageal reflux Essential hypertension 02/22/2019 Headache(784.0) Insomnia, unspecified 01/10/2008 Obesity, Class II, BMI 35-39.9 03/29/2018 DESIRAE (obstructive sleep apnea) 11/11/2009 CPAP since 2007 Osteopenia 11/15/2012 Other bursitis disorders bilateral hips Other specified gastritis Primary osteoarthritis of right knee 07/28/2015 Snoring Synovitis and tenosynovitis, unspecified right knee Tubular adenoma 02/25/2012 Current Outpatient Medications Medication Sig Dispense Refill PARoxetine (PAXIL) 40 mg tablet Take 1 tablet by mouth once daily. 90 tablet 3 omeprazole (PRILOSEC) 40 mg capsule Take 1 capsule by mouth once daily. 90 capsule 3 amLODIPine (NORVASC) 10 mg tablet Take 1 tablet by mouth once daily. 90 tablet 3 atorvastatin (LIPITOR) 10 mg tablet Take 1 tablet by mouth daily at bedtime. For cholesterol. 90 tablet 3 vibegron (GEMTESA) 75 mg tablet Take 1 tablet by mouth once daily. Cholecalciferol, Vitamin D3, 1,000 unit cap Take 1 capsule by mouth once daily. calcium carbonate 600 mg-cholecalciferol 200 units (CALCIUM 600 + D,3,) 600 mg(1,500mg) -200 unit tab Take 1 tablet by mouth twice daily. 0 No current facility-administered medications for this visit. PAST SURGICAL HISTORY Procedure Laterality Date APPENDECTOMY DELIVERY ATTEMPTED x 3 COLONOSCOPY FLX DX W/COLLJ SPEC WHEN PFRMD 11/17/2011 Colonoscopy repeat 18 months COLONOSCOPY FLX DX W/COLLJ SPEC WHEN PFRMD 06/12/2013 Colonoscopy repeat 2 years COLONOSCOPY FLX DX W/COLLJ SPEC WHEN PFRMD 05/12/2015 Colonoscopy COLONOSCOPY FLX DX W/COLLJ SPEC WHEN PFRMD 05/16/2017 3 yr repeat COLONOSCOPY FLX DX W/COLLJ SPEC WHEN PFRMD 06/09/2020 Colonoscopy repeat in 3 years DILATION & CURETTAGE DX&/THER NONOBSTETRIC ESOPHAGOGASTRODUODENOSCOPY TRANSORAL DIAGNOSTIC 01/01/2019 EGD HYSTEROSCOPY, DIAGNOSTIC (SEPARATE 10/14/2021 PAST SURGICAL HISTORY OF 06/19/2008 left midfoot exostectomy FAMILY HISTORY Problem Relation Age of Onset Cancer Mother lung Cancer Father Cancer Sister ovarian GI Sister Crohn's Cancer Sister lung, smoker Social History Tobacco Use Smoking status: Former Types: Cigarettes Smokeless tobacco: Never Tobacco comments: very rarely when I was a teenager Vaping Use Vaping Use: Never used Substance Use Topics Alcohol use: Yes Comment: occasional wine with dinner Drug use: Yes Frequency: 7.0 times per week Types: Marijuana Comment: daily smokes 1/2 joint am and pm Objective BP 122/72 Pulse 84 Temp 36.6 C (97.8 F) Resp 18 Wt 72.1 kg (158 lb 15.2 oz) SpO2 97% BMI 35.26 kg/m Physical Exam Vitals reviewed. Constitutional: Appearance: Normal appearance. HENT: Head: Normocephalic and atraumatic. Cardiovascular: Rate and Rhythm: Normal rate and regular rhythm. Heart sounds: Normal heart sounds. Pulmonary: Effort: Pulmonary effort is normal. Breath sounds: Normal breath sounds. Comments: Patient has tenderness palpation to the right lateral lower ribs. No bruising or erythema. No swelling. Pain with twisting and taking of breath. Musculoskeletal: Cervical back: Neck supple. Skin: General: Skin is warm and dry. Neurological: Mental Status: She is alert. Assessment and Plan ASSESSMENT/PLAN: 1. Rib pain on right side - ICD9: 786.50, ICD10: R07.81 X-rays are negative for displaced rib fracture. I feel she does have a strain. Discussed using OTC meds for pain relief. Rest, ice. If not improving over the next 1 to 2 weeks follow-up with primary care. Patient agreeable with plan. - XR RIBS/CHEST 3V AP RIB/OBLS/CXR RIGHT Latisha Jansen PA-C documented in this encounterMer[facility]12-01-[facility]23 History of Present illness Narrative* Katheryn Kaplan MA - 06/10/2023 9:35 AM EST POPULATION HEALTH NAVIGATION OUTREACH Action/FYI 2nd attempt from May medication adherence outreach June 10, 2023 9:36 AM Attempted to call- no answer- unable to LM-vm full patient does not have mychart Patient Identified by Name and : NO Outreach Outcome/Action Unable to reach patient: Phone number not valid / voicemail full Did you use a PCP flex slot to schedule this appointment? N/A Reason for Outreach Med Adherence Payer: Payor: KENNY [employer] [facility] / Plan: KENNY [employer] HMO / Product Type: HMO / Care Gap Reviewed:: N/A Reminder: Reminder note to check Health Maintenance for items below Health Maintenance items due: RSV Vaccine(1 - 1-dose 60+ series) Never done Pneumococcal Vaccine: 65+(1 - PCV) Never done Advance Directive Discussion due on 07/11/2022 Influenza Vaccine(1) due on 03/11/2023 Covid-19 Vaccine(3 - 2022-24 season) due on 03/11/2023 Colorectal Cancer Screening due on 06/09/2023 Mammogram Screening due on 06/23/2023 Navigation Signature: Katheryn Kaplan MA June 10, 2023 9:35 AM documented in this encounterMer[facility]11-30-2023 History of Present illness Narrative* Katheryn Kaplan MA - 06/09/2023 1:53 PM EST POPULATION HEALTH NAVIGATION OUTREACH Action/FYI Pt is on medication adherence list and is due for a refill of below medication ATORVASTATIN 10 MG TABLET- 90 day supply filled on 02.09.23- refills remain Outcome: Attempted to call- no answer- unable to LM-vm full patient does not have mychart Will make 2nd attempt within 3 days Patient Identified by Name and : NO Outreach Outcome/Action Unable to reach patient: Phone number not valid / voicemail full Did you use a PCP flex slot to schedule this appointment? N/A Reason for Outreach Med Adherence Payer: Payor: KENNY [employer] / Plan: KENNY [employer] HMO / Product Type: HMO / Care Gap Reviewed:: N/A Reminder: Reminder note to check Health Maintenance for items below Health Maintenance items due: RSV Vaccine(1 - 1-dose 60+ series) Never done Pneumococcal Vaccine: 65+(1 - PCV) Never done Advance Directive Discussion due on 07/11/2022 Influenza Vaccine(1) due on 03/11/2023 Covid-19 Vaccine(3 - 2022-24 season) due on 03/11/2023 Colorectal Cancer Screening due on 06/09/2023 Mammogram Screening due on 06/23/2023 Navigation Signature: Katheryn Kaplan MA June 09, 2023 1:53 PM documented in this encounterMercy [facility]09-26-2023 Miscellaneous Notes* Telephone Encounter - Maritza Panchal LPN - 04/05/2023 1:52 PM EDT Last OV:12/27/22 Patient has been identified by name and date of : Yes Requested Prescriptions Pending Prescriptions Disp Refills PARoxetine (PAXIL) 40 mg tablet 90 tablet 3 Sig: Take 1 tablet by mouth once daily. RX INSTRUCTIONS: Patient aware RX will be sent to pharmacy. No need to notify patient. Maritza Panchal LPN documented in this encounterMer[facility]06-22-2023 Miscellaneous Notes* Telephone Encounter - Demetria Avila LPN - 12/30/2022 1:47 PM EDT Pcp review sleep study from [facility] and PAP titration study recommended. Pcp signed order this was faxed back to [facility] and they will contact pt to arrange. Dx is DESIRAE. Called pt and all reviewed. documented in this encounterMercy [facility]06-19-2023 Instructions* Patient Instructions* Hugo Ro MD - 12/27/2022 6:27 PM EDT We will wait for sleep study report. See medication list for changes. We stopped nortriptyline. documented in this encounterMercy [facility]06-19-2023 History of Present illness Narrative* Hugo Ro MD - 12/27/2022 6:07 PM EDT This note was created using PeopleStringriter. Subjective Patient presents with: Follow-up - Sleep study Natali Mondragon is a 72 year old female. She just had sleep study 3 days ago, and report was not yet available in the local hospital EMR. Her hypertension was controlled. She complained of acute dizziness, weakness, and nausea since this morning. She was bent over caring for her feet when this happened. She was improving. She denied any illness or contact with any leary. On medication refill, she indicated she had not been taking nortriptyline lately as her sleep was good. Depression and anxiety were controlled. Review of Systems Constitutional: Negative for chills, diaphoresis and fever. HENT: Negative for congestion, ear pain and sore throat. Eyes: Negative for visual disturbance. Respiratory: Negative for shortness of breath. Cardiovascular: Negative for chest pain and palpitations. Gastrointestinal: Negative for abdominal pain, diarrhea and vomiting. Neurological: Negative for tremors, facial asymmetry, speech difficulty and numbness. ACTIVE PROBLEM LIST Depression Desirae (Obstructive Sleep Apnea) Lumbago Tubular Adenoma Hyperlipemia Anxiety Osteopenia Impingement Syndrome of Right Shoulder Arthritis of Midfoot Gastroesophageal Reflux Disease Essential Hypertension Urge Incontinence Impingement Syndrome of Left Shoulder Obesity, Class I, Bmi 30-34.9 Social History Tobacco Use Smoking status: Former Types: Cigarettes Smokeless tobacco: Never Tobacco comments: very rarely when I was a teenager Vaping Use Vaping Use: Never used Substance Use Topics Alcohol use: Yes Comment: occasional wine with dinner Drug use: No Current Outpatient Medications Medication Sig atorvastatin (LIPITOR) 10 mg tablet Take 1 tablet by mouth daily at bedtime. For cholesterol. nortriptyline (PAMELOR) 10 mg capsule Take 1-2 capsules by mouth daily at bedtime. PARoxetine (PAXIL) 40 mg tablet Take 1 tablet by mouth once daily. amLODIPine (NORVASC) 5 mg tablet Take 2 tablets by mouth once daily. omeprazole (PRILOSEC) 40 mg capsule Take 1 capsule by mouth once daily. vibegron (GEMTESA) 75 mg tablet Take 1 tablet by mouth once daily. Cholecalciferol, Vitamin D3, 1,000 unit cap Take 1 capsule by mouth once daily. calcium carbonate 600 mg-cholecalciferol 200 units (CALCIUM 600 + D,3,) 600 mg(1,500mg) -200 unit tab Take 1 tablet by mouth twice daily. medroxyPROGESTERone (PROVERA, CYCRIN) 2.5 mg tablet Take 2.5 mg by mouth once daily. 21 days on, 7 days off, cyclical. Per gynecology. (Patient not taking: Reported on 12/27/2022) No current facility-administered medications for this visit. Objective BP 121/77 (BP Site: Left Arm, BP Position: Supine, BP Cuff Size: Large Adult) Pulse 81 Temp 37.3 C (99.1 F) Wt 69.9 kg (154 lb) BMI 34.53 kg/m Physical Exam Constitutional: General: She is not in acute distress. HENT: Head: Atraumatic. Eyes: Extraocular Movements: Extraocular movements intact. Cardiovascular: Rate and Rhythm: Normal rate and regular rhythm. Heart sounds: No murmur heard. No gallop. Pulmonary: Breath sounds: Normal breath sounds. Musculoskeletal: Cervical back: Neck supple. Right lower leg: No edema. Left lower leg: No edema. Neurological: General: No focal deficit present. Mental Status: She is alert and oriented to person, place, and time. Cranial Nerves: No cranial nerve deficit. Sensory: No sensory deficit. Motor: No weakness. Coordination: Coordination normal. Gait: Gait normal. Psychiatric: Mood and Affect: Mood normal. Assessment and Plan 1. Dizziness - ICD9: 780.4, ICD10: R42 (primary diagnosis) Vertigo? Observe. Return if worse. Hydration stressed. Orthostatics BP negative. 2. Depression, unspecified depression type - ICD9: 311, ICD10: F32.A Controlled. Discontinue NORTRIPTYLINE for lack of use. This can cause dizziness. 3. Essential hypertension - ICD9: 401.9, ICD10: I10 - Controlled - AMLODIPINE 10 MG TABLET. Changed tablet from 5 mg to 10 mg, dose unchanged. 4. Gastroesophageal reflux disease, unspecified whether esophagitis present - ICD9: 530.81, ICD10: K21.9 - OMEPRAZOLE 40 MG CAPSULE,DELAYED RELEASE 5. DESIRAE (obstructive sleep apnea) - ICD9: 327.23, ICD10: G47.33 Await sleep study report. Hugo Ro MD documented in this encounterMer[facility]06-19-2023 History of Present illness Narrative* Katheryn Saab - 12/27/2022 4:01 PM EDT POPULATION HEALTH NAVIGATION OUTREACH Action/FYI 2nd attempt, vm full Patient Identified by Name and : NO Outreach Outcome/Action Unable to reach patient: Phone number not valid / voicemail full Did you use a PCP flex slot to schedule this appointment? No Reason for Outreach Care Gap or Scheduling/Wellness visits Payer: Payor: [employer] MEDICARE / Plan: [employer] / Product Type: HMO / Care Gap Reviewed:: Specialty Scheduling Reminder: Reminder note to check Health Maintenance for items below Health Maintenance items due: BP CONTROLLED (<130/80) due on 04/29/2022 ADVANCE DIRECTIVE DISCUSSION due on 07/11/2022 Navigation Signature: Katheryn Saab December 27, 2022 4:01 PM documented in this encounterMercy [facility]06-14-2023 History of Present illness Narrative* Katheryn Saab - 12/22/2022 3:48 PM EDT POPULATION HEALTH NAVIGATION OUTREACH Action/FYI 1st call, unable to leave vm Patient Identified by Name and : NO Outreach Outcome/Action Unable to reach patient: Phone number not valid / voicemail full Did you use a PCP flex slot to schedule this appointment? No Reason for Outreach Care Gap or Scheduling/Wellness visits Payer: Payor: [employer]NA MEDICARE / Plan: [employer] / Product Type: HMO / Care Gap Reviewed:: Specialty Scheduling Reminder: Reminder note to check Health Maintenance for items below Health Maintenance items due: BP CONTROLLED (<130/80) due on 04/29/2022 ADVANCE DIRECTIVE DISCUSSION due on 07/11/2022 Navigation Signature: Katheryn Saab December 22, 2022 3:48 PM documented in this encounterMercy [facility]06-08-2023 Miscellaneous Notes* Telephone Encounter - Debbie Bob MA - 12/16/2022 8:54 AM EDT Letter sent to patient's listed address notifying of call attempts and to return call to receive results. Debbie Bob MA * Telephone Encounter - Madhuri Rhodes - 12/15/2022 2:37 PM EDT Unable to reach patient. Mailbox full/Mailbox not set up/ Number incorrect. Please try again later. Madhuri Rhodes * Telephone Encounter - Madhuri Rhodes - 12/14/2022 3:47 PM EDT Unable to reach patient. Mailbox full/Mailbox not set up/ Number incorrect. Please try again later. Madhuri Rhodes * Telephone Encounter - TYSON Ames - 12/14/2022 3:19 PM EDT Urine culture revealed mixed bacterial growth. This can be a sign of contamination. If you are still having symptoms, follow-up with PCP for repeat UA. documented in this encounterMercy Health [facility]06-05-2023 Miscellaneous Notes* Telephone Encounter - Madhuri Rhodes - 12/13/2022 11:08 AM EDT Patient given results and verbalized understanding of instructions given. Madhuri Rhodes * Telephone Encounter - Latisha Jansen PA-C - 12/13/2022 10:46 AM EDT Please call and let patient know her xrays show she does have arthritic changes as well as degenerative disc disease in her lower back. Would recommend Tylenol, ice pack, stretching. May use Aleve sparingly. Follow-up with PCP. documented in this encounterMercy Health [facility] Hospital06-05-2023 History of Present illness Narrative* Raman Shahid RT(R) - 12/13/2022 10:20 AM EDT Radiology Service Progress Note PATIENT NAME: Natali Mondragon DATE OF SERVICE: December 13, 2022 TIME: 10:07 AM PATIENT IDENTITY VERIFICATION COMPLETED USING TWO (2) IDENTIFIERS: Name and Date of confirmedby patient verbally. FALL SCREENING: Has the patient had 2 falls in the last year or 1 fall with injury or currently using an Ambulatory Assistive Device (Walker, Cane, Wheelchair, Crutches, etc.)? No PATIENT GENDER DATA: Female. status: : No status: NO. PATIENT RELEVANT IMPLANT DATA REVIEWED: Not Applicable RADIOLOGY DEPARTMENT: General X-ray: Exam(s) Completed: Spine X-Ray(s): Lumbar AP / LAT / L5-S1 PERIPHERAL IV DATA: Not applicable SIGNED BY: RT Tessie(R) December 13, 2022 10:07 AM documented in this encounterMer[facility] History of Present illness Narrative* Latisha Jansen PA-C - 12/13/2022 10:09 AM EDT This note was created using People[employer]. Subjective Natali Mondragon is a 71 year old female. HPI Presents with low back pain and urinary frequency. She went to make sure she did not have a UTI. She does have chronic frequency and chronic low back pain. She thinks maybe over the past 4 days that has worsened some. Denies any dysuria. She has had some pelvic cramping. No vaginal itching or discharge. No recent antibiotics. She did stop into the lab today for some blood work ordered by her primary care she thought she did stop in here to make sure she does not have a UTI. No fever or vomiting. No blood in urine. Denies history of kidney stones. Review of Systems Constitutional: Negative. HENT: Negative. Respiratory: Negative. Cardiovascular: Negative. Genitourinary: Positive for frequency. Negative for dysuria and flank pain. Musculoskeletal: Positive for back pain. All other systems reviewed and are negative. PAST MEDICAL HISTORY Diagnosis Date Anxiety 04/28/2015 Arthritis Benign neoplasm of colon Coronary artery disease Depression 07/14/2009 Diffuse cystic mastopathy fibrocystic breast disease Esophageal reflux Essential hypertension 02/22/2019 Headache(784.0) Insomnia, unspecified 01/10/2008 Obesity, Class II, BMI 35-39.9 03/29/2018 DESIRAE (obstructive sleep apnea) 11/11/2009 CPAP since 2007 Osteopenia 11/15/2012 Other bursitis disorders bilateral hips Other specified gastritis Primary osteoarthritis of right knee 07/28/2015 Snoring Synovitis and tenosynovitis, unspecified right knee Tubular adenoma 02/25/2012 Current Outpatient Medications Medication Sig Dispense Refill atorvastatin (LIPITOR) 10 mg tablet Take 1 tablet by mouth daily at bedtime. For cholesterol. 90 tablet 3 nortriptyline (PAMELOR) 10 mg capsule Take 1-2 capsules by mouth daily at bedtime. 60 capsule 5 medroxyPROGESTERone (PROVERA, CYCRIN) 2.5 mg tablet Take 2.5 mg by mouth once daily. 21 days on, 7 days off, cyclical. Per gynecology. PARoxetine (PAXIL) 40 mg tablet Take 1 tablet by mouth once daily. 90 tablet 3 amLODIPine (NORVASC) 5 mg tablet Take 2 tablets by mouth once daily. 180 tablet 3 omeprazole (PRILOSEC) 40 mg capsule Take 1 capsule by mouth once daily. 90 capsule 3 vibegron (GEMTESA) 75 mg tablet Take 1 tablet by mouth once daily. Cholecalciferol, Vitamin D3, 1,000 unit cap Take 1 capsule by mouth once daily. calcium carbonate 600 mg-cholecalciferol 200 units (CALCIUM 600 + D,3,) 600 mg(1,500mg) -200 unit tab Take 1 tablet by mouth twice daily. 0 No current facility-administered medications for this visit. PAST SURGICAL HISTORY Procedure Laterality Date APPENDECTOMY DELIVERY ATTEMPTED x 3 COLONOSCOPY FLX DX W/COLLJ SPEC WHEN PFRMD 11/17/2011 Colonoscopy repeat 18 months COLONOSCOPY FLX DX W/COLLJ SPEC WHEN PFRMD 06/12/2013 Colonoscopy repeat 2 years COLONOSCOPY FLX DX W/COLLJ SPEC WHEN PFRMD 05/12/2015 Colonoscopy COLONOSCOPY FLX DX W/COLLJ SPEC WHEN PFRMD 05/16/2017 3 yr repeat COLONOSCOPY FLX DX W/COLLJ SPEC WHEN PFRMD 06/09/2020 Colonoscopy repeat in 3 years DILATION & CURETTAGE DX&/THER NONOBSTETRIC ESOPHAGOGASTRODUODENOSCOPY TRANSORAL DIAGNOSTIC 01/01/2019 EGD HYSTEROSCOPY, DIAGNOSTIC (SEPARATE 10/14/2021 PAST SURGICAL HISTORY OF 06/19/2008 left midfoot exostectomy FAMILY HISTORY Problem Relation Age of Onset Cancer Mother lung Cancer Father Cancer Sister ovarian GI Sister Crohn's Cancer Sister lung, smoker Social History Tobacco Use Smoking status: Former Types: Cigarettes Smokeless tobacco: Never Tobacco comments: very rarely when I was a teenager Vaping Use Vaping Use: Never used Substance Use Topics Alcohol use: Yes Comment: occasional wine with dinner Drug use: No Objective BP 124/80 Pulse 94 Temp 37 C (98.6 F) Resp 21 Wt 68 kg (150 lb) SpO2 98% BMI 33.63 kg/m Physical Exam Vitals reviewed. Constitutional: Appearance: Normal appearance. HENT: Head: Normocephalic and atraumatic. Cardiovascular: Rate and Rhythm: Normal rate and regular rhythm. Heart sounds: Normal heart sounds. Pulmonary: Effort: Pulmonary effort is normal. Breath sounds: Normal breath sounds. Abdominal: General: Abdomen is flat. Palpations: Abdomen is soft. Tenderness: There is no abdominal tenderness. There is no right CVA tenderness, left CVA tendernessor guarding. Musculoskeletal: Comments: Patient has mild tenderness in the right paraspinal musculature of the lumbar back. No midline tenderness. Increased pain with bending and twisting. Able to ambulate normally. Normal strength and sensation in lower extremities. No CVA tenderness. Skin: General: Skin is warm and dry. Findings: No rash. Neurological: Mental Status: She is alert. Assessment and Plan ASSESSMENT/PLAN: 1. Urinary frequency - ICD9: 788.41, ICD10: R35.0 (primary diagnosis) chronic Patient had trace blood, otherwise negative. Will send for culture. Discussed follow-up with PCP ifurine culture negative to have the urine rechecked due to the blood. Patient agreeable. - UA DIP, URINE (POC) - URINE CULTURE 2. Acute bilateral low back pain without sciatica - ICD9: 724.2, 338.19, ICD10: M54.50 Acute on Chronic for the patient, she was requesting some x-rays of low back. These are pending reading. Will call on results. Discussed Tylenol, heating pad or ice. Stretches. Follow-up with PCP. - XR LUMBAR GENERAL 3V AP/LAT/L5-S1 3. Microscopic hematuria - ICD9: 599.72, ICD10: R31.29 Latisha Jansen PA-C documented in this encounterMer[facility]23 Miscellaneous Notes* Telephone Encounter - Madhuri Rhodes - 09/22/2022 7:58 AM EDT Patient given results and verbalized understanding of instructions given. Madhuri Rhodes * Telephone Encounter - Latisha Jansen PA-C - 09/22/2022 7:54 AM EDT Let patient know their covid19/influenza test was negative. documented in this encounterMer[facility]03-14-2023 History of Present illness Narrative* Maurice Kaur APRN.YARN HAULER - 09/21/2022 12:40 PM EDT CC: Patient presents with: Head Congestion: cough x 4 days HPI: Natali Mondragon is a 71 year old female who presents to the office with complaint of head congestion and cough, nonproductive 2-4 days. Symptoms are staying the same. Associated symptoms includes cough. Denies fever, nausea, vomiting , and diarrhea. Treatments tried include nothing so far. with no relief of symptoms. Sick contacts: unknown. History of asthma, frequent episodes of bronchitis, chronic bronchitis, bronchiectasis or COPD: No Smoker: No Seasonal/environmental allergies: No The ROS is otherwise negative. The patient's pmh, medications, allergies, and past visits are reviewed. PHYSICAL EXAM: BP 140/82 Pulse 102 Temp 37.3 C (99.1 F) Resp 18 Wt 68.9 kg (152 lb) SpO2 96% BMI 34.08kg/m General appearance: alert, cooperative, pleasant, in no acute distress Head: Normocephalic Eyes: EOM's intact, conjunctiva pink and moist, no icterus, sclera white, non-injected Ears: Right ear: External ear/canal- Normal, TM - clear with good landmarks. Left ear: External ear/canal- Normal, TM - clear with good landmarks Oropharynx:moist without lesions, No erythema, exudates or tonsillar hypertrophy. Heart: Negative. RRR without obvious murmur, gallop, or rubs. No ectopy. Lungs: clear to auscultation, without rales or wheeze, good air exchange PAST MEDICAL HISTORY Diagnosis Date Anxiety 04/28/2015 Arthritis Benign neoplasm of colon Coronary artery disease Depression 07/14/2009 Diffuse cystic mastopathy fibrocystic breast disease Esophageal reflux Essential hypertension 02/22/2019 Headache(784.0) Insomnia, unspecified 01/10/2008 Obesity, Class II, BMI 35-39.9 03/29/2018 DESIRAE (obstructive sleep apnea) 11/11/2009 CPAP since 2007 Osteopenia 11/15/2012 Other bursitis disorders bilateral hips Other specified gastritis Primary osteoarthritis of right knee 07/28/2015 Snoring Synovitis and tenosynovitis, unspecified right knee Tubular adenoma 02/25/2012 PAST SURGICAL HISTORY Procedure Laterality Date APPENDECTOMY DELIVERY ATTEMPTED x 3 COLONOSCOPY FLX DX W/COLLJ SPEC WHEN PFRMD 11/17/2011 Colonoscopy repeat 18 months COLONOSCOPY FLX DX W/COLLJ SPEC WHEN PFRMD 06/12/2013 Colonoscopy repeat 2 years COLONOSCOPY FLX DX W/COLLJ SPEC WHEN PFRMD 05/12/2015 Colonoscopy COLONOSCOPY FLX DX W/COLLJ SPEC WHEN PFRMD 05/16/2017 3 yr repeat COLONOSCOPY FLX DX W/COLLJ SPEC WHEN PFRMD 06/09/2020 Colonoscopy repeat in 3 years DILATION & CURETTAGE DX&/THER NONOBSTETRIC ESOPHAGOGASTRODUODENOSCOPY TRANSORAL DIAGNOSTIC 01/01/2019 EGD HYSTEROSCOPY, DIAGNOSTIC (SEPARATE 10/14/2021 PAST SURGICAL HISTORY OF 06/19/2008 left midfoot exostectomy ALLERGIES Patient has no known allergies. MEDICATIONS nortriptyline (PAMELOR) 10 mg capsule Take 1-2 capsules by mouth daily at bedtime. medroxyPROGESTERone (PROVERA, CYCRIN) 2.5 mg tablet Take 1 tablet by mouth once daily. 21 days on, 7 days off, cyclical. Per gynecology. PARoxetine (PAXIL) 40 mg tablet Take 1 tablet by mouth once daily. amLODIPine (NORVASC) 5 mg tablet Take 2 tablets by mouth once daily. omeprazole (PRILOSEC) 40 mg capsule Take 1 capsule by mouth once daily. vibegron (GEMTESA) 75 mg tablet Take 1 tablet by mouth once daily. atorvastatin (LIPITOR) 10 mg tablet Take 1 tablet by mouth daily at bedtime. For cholesterol. MAGNESIUM ORAL Take by mouth. diclofenac sodium (VOLTAREN) 1 % topical gel Apply 2 g to affected area four times daily. Feet pain. Cholecalciferol, Vitamin D3, 1,000 unit cap Take 1 capsule by mouth once daily. calcium carbonate 600 mg-cholecalciferol 200 units (CALCIUM 600 + D,3,) 600 mg(1,500mg) -200 unit tab Take 1 tablet by mouth twice daily. FAMILY HISTORY Problem Relation Age of Onset Cancer Mother lung Cancer Father Cancer Sister ovarian GI Sister Crohn's Cancer Sister lung, smoker Social History Tobacco Use Smoking status: Former Types: Cigarettes Smokeless tobacco: Never Tobacco comments: very rarely when I was a teenager Vaping Use Vaping Use: Never used Substance Use Topics Alcohol use: Yes Comment: occasional wine with dinner Drug use: No ASSESSMENT/PLAN: 1. URI, acute - ICD9: 465.9, ICD10: J06.9 - COVID WITH FLUA+B, ROUTINE Potential red flag symptoms discussed with the patient. Reviewed appropriate action plan to take ifred flag symptoms occur. Patient agreeable to treatment plan. Maurice Kaur APRN.CNP documented in this encounterMer[facility]12-21-2022 Miscellaneous Notes* Telephone Encounter - Madhuri Rhodes - 06/30/2022 7:28 AM EST Patient given results and verbalized understanding of instructions given. Madhuri Rhodes * Telephone Encounter - Tayler Beard APRN.CNP - 06/30/2022 7:21 AM EST COVID, Influenza, and RSV are negative. Continue treatment plan discussed at time of exam. Follow up with primary care doctor as needed. documented in this encounterMer[facility]12-20-2022 Instructions* Patient Instructions* Les Ramos APRN.CNP - 06/29/2022 3:14 PM EST How to Manage Common Symptoms Associated with COVID for Adults Fever- Fever is a temperature over 100.4 F and can occur when the body is fighting an infection. Tohelp treat a fever: Drink plenty of fluids and stay well hydrated. Eat small amounts of easy to digest food. Rest. Your body needs rest to recover, but getting up and moving around the house frequently is a good idea. You should try to continue doing your normal daily activities (bathing, toileting, grooming, cooking), though you will probably feel tired, and need to rest often. Avoid any heavy activity or exercise, as this will increase your body temperature. Dress in light clothing and stay covered in a light sheet. Keep the room temperature cool. Take a slightly warm (not cold or cool) bath, or apply damp washcloths to the forehead and wrists. Cough- Cough is a common symptom associated with COVID and can be bothersome. To help treat a cough: Stay well hydrated. Try warm water or tea with lemon and/or honey to help soothe the cough. Use a humidifier to add moisture to the air. Try a product with menthol, like a cough drop or a rub for your chest such as Vicks, which can helpreduce cough. Try cough drops. Avoid smoking and other strong odors or perfumes. Try breathing exercises to keep your lungs open and clear. Take a big deep breath through your noseand hold for 5 seconds before slowly releasing. Repeat frequently, while you are awake. Congestion- Runny nose or nasal congestion can occur with COVID. Treatment can help relieve symptoms: Try OTC nasal saline spray, or nasal saline rinse to relieve mucus congestion. Nasal strips can help keep nasal passages open, to increase airflow. Elevating your head with an extra pillow in bed can help reduce congestion. Using a humidifier can increase moisture in the air, and make breathing easier. Sore Throat- Another common symptom with COVID, can be managed at home by: Stay well hydrated. Gargle with salt water - mix teaspoon salt with 1 cup of warm water and gargle. This helps to loosen mucus in the back of the throat and may reduce discomfort. Try ice chips, popsicles or lozenges to soothe the throat. Nausea/Vomiting/Diarrhea- These are common symptoms, and staying hydrated is most important. If you are nauseous or vomiting, start with small sips of water every 10-15 minutes and increase astolerated. You can try sucking an ice cube too. If tolerating, you can try pedialyte or Gatorade, or flat sprite or arya-jenelle. Start slowly and increase as you are able to. Instead of meals, try smaller, more frequent snacks. Try eating bland foods like crackers, toast, rice, and applesauce. Avoid spicy, greasy or fried foods and dairy containing foods. Even if you aren't feeling hungry due to lack of smell or taste, it is important to try to take in some food when you are able. After drinking and eating, rest in an upright position for up to two hours as needed to help decrease nauseous feelings. Try closing your eyes, avoid moving and watching TV. Avoid strong odors that can make you feel more nauseated. When to seek emergency medical attention Look for emergency warning signs for COVID-19. If having any of these symptoms, seek emergency medical care immediately: Trouble breathing Persistent pain or pressure in the chest New confusion Inability to wake or stay awake Bluish lips or face *This list is not all possible symptoms. Please call your medical provider for any other symptoms that are severe or concerning to you. documented in this encounterMer[facility]12-20-2022 History of Present illness Narrative* Les Ramos APRN.CNP - 06/29/2022 3:13 PM EST Subjective HPI Nontoxic-appearing female presents urgent care chief complaint fatigue. Duration of symptoms 2 days. Associated symptoms headache fatigue chills body aches night sweats. States she was around her grandchildren and daughter who had similar signs and symptoms. Presents today for evaluation. Did use Tylenol and this morning for headache management this did help. Denies any OTC medication use recently. Denies any significant pain. Most bothersome symptom today is body aches chills and fatigue. Denies history of COVID-19 recently. Did receive 1 vaccine. Denies any fever productive cough chest painshortness of breath pleuritic pain hemoptysis nausea vomiting abdominal pain or change in bowel or b ladder habits. Past medical history prescription medication use allergies reviewed. .Patient presents with: Headache: Pt reported fatigue x2 days. PAST MEDICAL HISTORY Diagnosis Date Anxiety 04/28/2015 Arthritis Benign neoplasm of colon Coronary artery disease Depression 07/14/2009 Diffuse cystic mastopathy fibrocystic breast disease Esophageal reflux Essential hypertension 02/22/2019 Headache(784.0) Insomnia, unspecified 01/10/2008 Obesity, Class II, BMI 35-39.9 03/29/2018 DESIRAE (obstructive sleep apnea) 11/11/2009 CPAP since 2007 Osteopenia 11/15/2012 Other bursitis disorders bilateral hips Other specified gastritis Primary osteoarthritis of right knee 07/28/2015 Snoring Synovitis and tenosynovitis, unspecified right knee Tubular adenoma 02/25/2012 PAST SURGICAL HISTORY Procedure Laterality Date APPENDECTOMY DELIVERY ATTEMPTED x 3 COLONOSCOPY FLX DX W/COLLJ SPEC WHEN PFRMD 11/17/2011 Colonoscopy repeat 18 months COLONOSCOPY FLX DX W/COLLJ SPEC WHEN PFRMD 06/12/2013 Colonoscopy repeat 2 years COLONOSCOPY FLX DX W/COLLJ SPEC WHEN PFRMD 05/12/2015 Colonoscopy COLONOSCOPY FLX DX W/COLLJ SPEC WHEN PFRMD 05/16/2017 3 yr repeat COLONOSCOPY FLX DX W/COLLJ SPEC WHEN PFRMD 06/09/2020 Colonoscopy repeat in 3 years DILATION & CURETTAGE DX&/THER NONOBSTETRIC ESOPHAGOGASTRODUODENOSCOPY TRANSORAL DIAGNOSTIC 01/01/2019 EGD HYSTEROSCOPY, DIAGNOSTIC (SEPARATE 10/14/2021 PAST SURGICAL HISTORY OF 06/19/2008 left midfoot exostectomy ALLERGIES Patient has no known allergies. MEDICATIONS nortriptyline (PAMELOR) 10 mg capsule Take 1-2 capsules by mouth daily at bedtime. medroxyPROGESTERone (PROVERA, CYCRIN) 2.5 mg tablet Take 1 tablet by mouth once daily. 21 days on, 7 days off, cyclical. Per gynecology. PARoxetine (PAXIL) 40 mg tablet Take 1 tablet by mouth once daily. amLODIPine (NORVASC) 5 mg tablet Take 2 tablets by mouth once daily. omeprazole (PRILOSEC) 40 mg capsule Take 1 capsule by mouth once daily. vibegron (GEMTESA) 75 mg tablet Take 1 tablet by mouth once daily. atorvastatin (LIPITOR) 10 mg tablet Take 1 tablet by mouth daily at bedtime. For cholesterol. MAGNESIUM ORAL Take by mouth. diclofenac sodium (VOLTAREN) 1 % topical gel Apply 2 g to affected area four times daily. Feet pain. Cholecalciferol, Vitamin D3, 1,000 unit cap Take 1 capsule by mouth once daily. calcium carbonate 600 mg-cholecalciferol 200 units (CALCIUM 600 + D,3,) 600 mg(1,500mg) -200 unit tab Take 1 tablet by mouth twice daily. FAMILY HISTORY Problem Relation Age of Onset Cancer Mother lung Cancer Father Cancer Sister ovarian GI Sister Crohn's Cancer Sister lung, smoker Social History Tobacco Use Smoking status: Former Types: Cigarettes Smokeless tobacco: Never Tobacco comments: very rarely when I was a teenager Vaping Use Vaping Use: Never used Substance Use Topics Alcohol use: Yes Comment: occasional wine with dinner Drug use: No BP 126/80 Pulse 103 Temp 37.5 C (99.5 F) (Tympanic) Resp 16 Wt 71.3 kg (157 lb 3.2 oz) SpO2 97% BMI 35.24 kg/m Hr 86 Review of Systems Constitutional: Positive for chills and malaise/fatigue. Negative for fever. HENT: Negative for congestion, ear discharge, ear pain, sinus pain and sore throat. Eyes: Negative for blurred vision, pain, discharge and redness. Respiratory: Negative for cough, hemoptysis, sputum production, shortness of breath, wheezing and stridor. Cardiovascular: Negative for chest pain. Gastrointestinal: Negative for abdominal pain, diarrhea, nausea and vomiting. Musculoskeletal: Positive for myalgias. Skin: Negative for itching and rash. Neurological: Positive for headaches. Negative for dizziness. Objective Physical Exam Constitutional: General: She is not in acute distress. Appearance: She is not diaphoretic. HENT: Head: Normocephalic. Nose: Nose normal. Mouth/Throat: Mouth: Mucous membranes are moist. Pharynx: Oropharynx is clear. No oropharyngeal exudate or posterior oropharyngeal erythema. Eyes: Conjunctiva/sclera: Conjunctivae normal. Pupils: Pupils are equal, round, and reactive to light. Cardiovascular: Rate and Rhythm: Normal rate and regular rhythm. Heart sounds: Normal heart sounds. Pulmonary: Effort: Pulmonary effort is normal. No tachypnea, accessory muscle usage or respiratory distress. Breath sounds: Normal breath sounds. No stridor. No wheezing, rhonchi or rales. Abdominal: Palpations: Abdomen is soft. Tenderness: There is no abdominal tenderness. Musculoskeletal: Cervical back: Normal range of motion and neck supple. No rigidity or tenderness. Lymphadenopathy: Cervical: No cervical adenopathy. Skin: General: Skin is warm and dry. Neurological: Mental Status: She is alert and oriented to person, place, and time. ASSESSMENT/PLAN: 1. Suspected COVID-19 virus infection - ICD9: V01.79, ICD10: Z20.822 - COVID WITH FLUA+B, ROUTINE Day 3 of symptoms. Positive sick contacts similar signs symptoms. Suspicious of viral etiology. We will treat conservatively at this time. Patient was educated on supportive therapies. Patient will follow up with primary care provider as needed. Patient was instructed to immediately proceed to emergency room for any new, worsening, or symptoms lasting longer than anticipated. The patient's clinical presentation is otherwise unremarkable at this time. Based on exam and clinical finding, the patient is stable for discharge. Plan of care was discussed with patient. Patient verbalizes understanding and agrees to plan of care. This note was generated using [employer] software. It may contain errors in wording, punctuation, or spelling. Les Ramos APRN.CNP \ documented in this encounterMercy [facility]12-14-2022 History of Present illness Narrative* Nayeli De La Cruz RT(Rossana) - 06/23/2022 7:10 AM EST Radiology Service Progress Note PATIENT NAME: Natali Mondragon DATE OF SERVICE: June 23, 2022 TIME: 7:13 AM PATIENT IDENTITY VERIFICATION COMPLETED USING TWO (2) IDENTIFIERS: Name and Date of confirmedby patient verbally. FALL SCREENING: Has the patient had 2 falls in the last year or 1 fall with injury or currently using an Ambulatory Assistive Device (Walker, Cane, Wheelchair, Crutches, etc.)? No PATIENT GENDER DATA: Female. status: : No status: NO. PATIENT RELEVANT IMPLANT DATA REVIEWED: Not Applicable RADIOLOGY DEPARTMENT: Mammography PERIPHERAL IV DATA: Not applicable SIGNED BY: RT Laura(Rossana) June 23, 2022 7:13 AM documented in this encounterMercy [facility]11-14-2022 History of Present illness Narrative* Hugo Ro MD - 05/24/2022 6:46 PM EST This note was created using [employer]. Subjective Natali Mondragon is a 71 year old female. Depression and anxiety were controlled. Lipids and hypertension were controlled. She had not used a CPAP for more than one year, and her machine was dismantled. Review of Systems Constitutional: Negative. Respiratory: Negative. Cardiovascular: Negative. Gastrointestinal: Negative. Musculoskeletal: Positive for arthralgias. Neurological: Negative. ACTIVE PROBLEM LIST Depression Desirae (Obstructive Sleep Apnea) Lumbago Tubular Adenoma Hyperlipemia Anxiety Primary Osteoarthritis of Right Knee Obesity, Class II, BMI 35-39.9 Osteoporosis Impingement Syndrome of Right Shoulder Arthritis of Midfoot Gastroesophageal Reflux Disease Essential Hypertension Urge Incontinence Impingement Syndrome of Left Shoulder Obesity, Class I, Bmi 30-34.9 Current Outpatient Medications Medication Sig PARoxetine (PAXIL) 40 mg tablet Take 1 tablet by mouth once daily. amLODIPine (NORVASC) 5 mg tablet Take 2 tablets by mouth once daily. omeprazole (PRILOSEC) 40 mg capsule Take 1 capsule by mouth once daily. vibegron (GEMTESA) 75 mg tablet Take 1 tablet by mouth once daily. atorvastatin (LIPITOR) 10 mg tablet Take 1 tablet by mouth daily at bedtime. For cholesterol. MAGNESIUM ORAL Take by mouth. diclofenac sodium (VOLTAREN) 1 % topical gel Apply 2 g to affected area four times daily. Feet pain. Cholecalciferol, Vitamin D3, 1,000 unit cap Take 1 capsule by mouth once daily. calcium carbonate 600 mg-cholecalciferol 200 units (CALCIUM 600 + D,3,) 600 mg(1,500mg) -200 unit tab Take 1 tablet by mouth twice daily. nortriptyline (PAMELOR) 10 mg capsule Take 1-2 capsules by mouth daily at bedtime. medroxyPROGESTERone (PROVERA, CYCRIN) 2.5 mg tablet Take 1 tablet by mouth once daily. 21 days on, 7 days off, cyclical. Per gynecology. No current facility-administered medications for this visit. Objective BP 124/74 (BP Site: Left Arm, BP Position: Sitting, BP Cuff Size: Large Adult) Pulse 92 Temp 36.3 C (97.3 F) (Temporal) Resp 20 Ht 142.2 cm (4' 8) Wt 70.3 kg (155 lb) BMI 34.75 kg/m Physical Exam Constitutional: General: She is not in acute distress. HENT: Head: Normocephalic. Cardiovascular: Rate and Rhythm: Normal rate and regular rhythm. Heart sounds: No murmur heard. No gallop. Pulmonary: Effort: Pulmonary effort is normal. Breath sounds: Normal breath sounds. Abdominal: Palpations: Abdomen is soft. Tenderness: There is no abdominal tenderness. Musculoskeletal: General: No tenderness. Right lower leg: No edema. Left lower leg: No edema. Neurological: General: No focal deficit present. Mental Status: She is alert. Psychiatric: Mood and Affect: Mood normal. Behavior: Behavior normal. Assessment and Plan 1. Medicare annual wellness visit, subsequent - ICD9: V70.0, ICD10: Z00.00 (primary diagnosis) See wellness note. - ADVANCE CARE PLAN DISCUSSION 2. Obesity, Class I, BMI 30-34.9 - ICD9: 278.00, ICD10: E66.9 Weight decreasing - Behavioral intervention 3. Encounter for screening mammogram for malignant neoplasm of breast - ICD9: V76.12, ICD10: Z12.31 - HARSHIL SCREENING 4. Hyperlipidemia, unspecified hyperlipidemia type - ICD9: 272.4, ICD10: E78.5 - good control - Continue current medication. - COMP METABOLIC PANEL - LIPID PANEL BASIC 5. Essential hypertension - ICD9: 401.9, ICD10: I10 - good control - Continue current medication(s) - Goal of BP <130/80 - CBC 6. Osteoporosis, unspecified osteoporosis type, unspecified pathological fracture presence - ICD9: 733.00, ICD10: M81.0 - Reviewed the need for Calcium and Vitamin D supplements and weight bearing exercise as tolerated - Set up for BMD next year. 7. Depression, unspecified depression type - ICD9: 311, ICD10: F32.A Controlled. - NORTRIPTYLINE 10 MG CAPSULE 8. Anxiety - ICD9: 300.00, ICD10: F41.9 Controlled. 9. DESIRAE (obstructive sleep apnea) - ICD9: 327.23, ICD10: G47.33 Not using CPAP. She will check with a supplier to reassemble her machine. 10. Tubular adenoma - ICD9: 229.9, ICD10: D36.9 Due for scope next year. Hugo Ro MD * Hugo Ro MD - 05/24/2022 6:33 PM EST Natali Mondragon is a 71 year old female here for a Medicare Subsequent Annual Wellness Visit Health Risk Assessment In general, health is: Good Concerns with tiredness, difficulties with sexual function, balance, teeth/dentures: Not at all [place] anxious, stressed, angry, irritable, lonely, isolated, or had thoughts of hurting themself: Not at all Has little interest or pleasure in doing things: Not at all Bothered by feeling down, depressed, or hopeless: Not at all Needs help with grocery shopping, cooking, housework, bathing, grooming, dressing, eating, sitting or standing, walking, using the toilet, handling finances, taking medications, using the telephone, or driving: No Following safety precautions in the home environment and vehicle: removed throw rugs from floors, installed grab bars in the bathroom, handrails in stairwells, having adequate lighting, wearing seatbelt at all times?: Yes Smokes cigarettes, vapes, or chew tobacco: No Eats healthy foods including fruits, vegetables, whole grains, and fiber-rich foods: More than halfthe days Number of days per week engages in exercise: 7 days Average alcohol consumption: Never Current Providers Specialists: I have reviewed specialist-related care of the patient in the medical record. Current care team: Patient Care Team: Hugo Ro MD as PCP - General (Internal Medicine) Outside specialists seen: Diane Pacheco, gynecology urology. [place] gynecology: Dr. Arriaga. [facility]. Optometry in [place]. Medical/Family history review Reviewed and updated problem list, medical/surgical/family/social history, medications, and allergies. Opioid use review Patient is not currently using opioids. Depression screening Depression Screening PHQ-2 Score 02/14/2018 0 Depression screening tool completed and reviewed. Based on score and interview, patient is not at risk for depression. Screening tool discussed with patient, and I recommended no further interventionat this time. Cognitive screening Mini Cog Score: 1 Cognitive screening reviewed and no further action needed (score 3-5) Functional Observation Was the patient's timed Up & Go test unsteady or longer than 30 seconds? No Advance Care Planning End of Life planning discussed, including patient's advanced directive wishes: Yes Measurements BP 124/74 Pulse 92 Temp (Src) 97.3 (Temporal) Resp 20 Ht 4' 8 (1.42m) Wt 155 lb (70.3kg) BMI 34.77 kg/(m^2). Visual acuity: follows with optometry/ophthalmology Hearing Evaluation: within normal limits Assessment/Plan - Counseled on healthy diet and regular exercise - Discussed need for and benefit of weight loss. BMI 34.75 kg/(m^2) - Fall avoidance - Vaccines recommended declined Pneumonia vaccine, Covid booster. - Mammogram recommended and ordered - Depression screening documented in [facility] encounter[facility] Miscellaneous Notes* Telephone Encounter - Xiomara Early LPN - 04/06/2022 10:36 AM EDT Patient has been identified by name and date of : Yes Patient phones for refill(s): Requested Prescriptions Pending Prescriptions Disp Refills PARoxetine (PAXIL) 40 mg tablet 90 tablet 3 Sig: Take 1 tablet by mouth once daily. Date of last office visit in primary care: 12/10/2021 Medicare Wellness: 05/24/2022 Last 2 Encounter Wt Readings: Date: Wt: 12/10/2021 72 kg (158 lb 12.8 oz) 06/10/2021 73.5 kg (162 lb) Previous labs/tests for medication: Not applicable Please advise. Thank you. Xiomara Early LPN * Telephone Encounter - Ashley Back - 04/05/2022 11:42 AM EDT Patient is OUT of medication if you can please send NILSA. Patient has been identified by name and date of : Yes Requested Prescriptions Pending Prescriptions Disp Refills PARoxetine (PAXIL) 40 mg tablet 90 tablet 3 Sig: Take 1 tablet by mouth once daily. RX INSTRUCTIONS: Patient requesting a call when RX is approved and sent to the pharmacy. Please call patient at: [phone]. Ashley Junior Pss documented in this encounterMer[facility]07-21-2022 History of Present illness Narrative* Thaddeus Ronald, PT - 01/28/2022 7:30 AM EDT Episode Visit Count: 6 Therapist That Will Oversee The Plan Of Care: Thaddeus Shaw Start of Care Date: 12/17/21 Onset Date: 09/16/21 Plan of Care Certification Date: 01/14/22 Next Certification Due Date: 02/18/22 Patient Identified by Name and Date of : Yes REHABILITATION AND SPORTS THERAPY PHYSICAL THERAPY TREATMENT NOTE ASSESSMENT: Natali Mondragon tolerated the session with no issues. She demonstrated improvements in increased tolerance to higher load with therapeutic exercises. The patient will continue to benefit from ongoing skilled physical therapy to progress toward set goals and for reassessment by supervising therapist. PLAN FOR NEXT VISIT: POC update SUBJECTIVE: Patient Reason for Visit: Pt states the shoulder feels ok. gave the shoulder a good workout yesterday. Pt states she feels she has come pretty far with the shoulder. Therapy is helping the shoulder. Pain: Pain Pain Level: 1 Pain Location: Shoulder - Left Post Treatment Pain Post Treatment Pain Location: Shoulder - Left OBJECTIVE MEASURES WITH LEVEL OF FUNCTION: Slight pain with Romeo when moving the arm more quickly into end range flexion Discussed proper form with shoulder flexion exercise as pt's elbow was excessively flexing TREATMENT: Therapeutic Exercise: 1: Shoulder pulleys x 30 2: Shoulder flexion with wand 2 x 10 3: Shoulder abd wand x 12 4: Standing shoulder flex resisted 2# 2 x 10 5: Standing shoulder flexion 3# x 9 reps 6: S/L shoulder ER 2# 3 x 12 7: L shoulder stretch behind back x 20 sec Skilled Intervention: Patient was educated in proper exercise technique and purpose for exercises. Correct performance of therapeutic exercises was facilitated with verbal and visual cuing. Billing Therapeutic Exercise Treatment Minutes: 53 Total Treatment Time Minutes (timed/untimed): 53 Thaddeus Shaw PT documented in this encounterMer[facility]07-07-2022 History of Present illness Narrative* Thaddeus Shaw PT - 01/14/2022 7:27 AM EDT Episode Visit Count: 5 Therapist That Will Oversee The Plan Of Care: Thaddeus Shaw Start of Care Date: 12/17/21 Onset Date: 09/16/21 Plan of Care Certification Date: 01/14/22 Next Certification Due Date: 02/18/22 Patient Identified by Name and Date of : Yes REHABILITATION AND SPORTS THERAPY PHYSICAL THERAPY PROGRESS REPORT PLAN OF CARE UPDATE: Assessment: Natali Mondragon demonstrates difficulty with end range AROM, strength, and lifting and improvements in pain intensity and frequency and level of independence of the HEP. She hasprogressed toward goals. Patient continues to present with impairments in overall function, range of motion and strength that interfere with nothing . Current prognosis is Good due to: current objective clinical presentation . She will benefit from continued skilled therapy services to meet the updated goals for this plan of care as noted below. Goals updated 01/14/2022 Goals for Episode of Care: created on 12/17/21 through 02/11/22 [place] in home exercise program. - Met Increase ROM of L shoulder by 10 degrees or more for improved joint mechanics and decreased pain - Progressing, will continue Pt will report overall improvement in symptoms by 50% or better in 8 weeks for improved QOL - MET Patient Goals: To get exercises to help the shoulder Planned Interventions, Frequency, and Duration: 1x every other week, 4 weeks Total Number of Visits Planned: 2 Patient to be seen for Therapeutic exercise (62892);Neuromuscular re-education (61521);Manual therapy (37029);Self-fci management ([id number]);Patient/Family/Caregiver Education PLAN FOR NEXT VISIT: Progress exercises as tolerated focuing on strengthening the RTC's SUBJECTIVE: Patient Reason for Visit: Pt states things are getting better. Did have some pain yesterday. Pt feels the shoulder is 70-80% improved. Pt feels she knows eveything that can be done. Functional Limitations: nothing Pain: Pain Pain Level: 0 Pain Location: Shoulder - Left Post Treatment Pain Post Treatment Pain Level: No Change Post Treatment Pain Location: Shoulder - Left PROMIS Scales Higher is Better 12/29/2015 GH Physical - Percentile 31 % GH Mental - Percentile 26 % T-scores: mean of general population = 50. 5 points is clinically meaningfully difference Percentiles provide an indication of how the patient's score ranks in relation to the general population. Higher percentile rankings indicate better function/quality of life. 50th percentile is the average of the general population and indicates half of respondents had a worse score. T-scores: mean of general population = 50. 5 points is clinically meaningfully difference Percentiles provide an indication of how the patient's score ranks in relation to the general population. Higher percentile rankings indicate better function/quality of life. 50th percentile is the average of the general population and indicates half of respondents had a worse score. OBJECTIVE MEASURES WITH LEVEL OF FUNCTION: UE AROM L Shoulder Flex: 155 Degrees (Only pain at end range) L Shoulder Internal Rotation (Functional): L1 (Thumb to) UE PROM L Shoulder Flex: 150 Degrees L Shoulder ABduction: 100 Degrees (then comes forward) L Shoulder Internal Rotation: (Pain at 30 degrees of IR at 90 deg abd) L Shoulder External Rotation: 60 Degrees (arm abd to 90) UE and Cervical Strength R UE Strength: Grossly 5/5 L Shoulder Flexion: 4/5 L Shoulder Internal Rotation: 4+/5 L Shoulder External Rotation: 4/5 TREATMENT: Therapeutic Exercise: 1: All objective measures taken this session 2: Shoulder flexion romeo x 30 3: Standing shoulder flexion 2# 3 x 10 reps 4: S/L shoulder ER 2# 3 x 12 reps Skilled Intervention: Patient was educated in proper exercise technique and purpose for exercises. Provided written instruction for home exercise program to facilitate proper performance and compliance. Correct performance of therapeutic exercises was facilitated with verbal and visual cuing. Billing Therapeutic Exercise Treatment Minutes: 42 Total Treatment Time Minutes (timed/untimed): 42 Thaddeus Shaw PT documented in this encounterMer[facility]06-28-2022 Miscellaneous Notes* Telephone Encounter - Doug Houstonas Ma - 01/05/2022 4:12 PM EDT VAL: 12/10/2021 Last refill: 03/18/2021 QTY: 90 Refills: 3 * Telephone Encounter - Roseann Da Silva Pss - 01/05/2022 3:03 PM EDT Patient has been identified by name and date of : Yes Pending Prescriptions Disp Refills OMEPRAZOLE 40 MG CAPSULE,DELAYED RELEASE 90 capsule 3 Sig: Take 1 capsule by mouth once daily. KAYLYN: No RX INSTRUCTIONS: Patient took last pill this morning, would like to berry picker today if possible. Patient aware RX will be sent to pharmacy. No need to notify patient. Roseann Da Silva Pss documented in this encounterMer[facility]06-23-2022 History of Present illness Narrative* Thaddeus Shaw, PT - 12/31/2021 8:21 AM EDT Episode Visit Count: 3 Therapist That Will Oversee The Plan Of Care: Thaddeus Shaw Start of Care Date: 12/17/21 Onset Date: 09/16/21 Plan of Care Certification Date: 12/17/21 Next Certification Due Date: 01/21/22 Patient Identified by Name and Date of : Yes REHABILITATION AND SPORTS THERAPY PHYSICAL THERAPY TREATMENT NOTE ASSESSMENT: Natali Mondragon tolerated the session with no issues. She demonstrated some difficulty with 2# scaption with keeping the elbow straight due to weakness but overall this is an appropriate challenge. The patient will continue to benefit from ongoing skilled physical therapy to progress toward set goals. PLAN FOR NEXT VISIT: Progress strengthenong of the RTC and deltoid as tolerated SUBJECTIVE: Patient Reason for Visit: Pt states she is doing the exercises everyday. She uses her arm because she needs to. Pt feels 90% improved so far. Pain: Pain Pain Level: 2 Pain Location: Shoulder - Left Post Treatment Pain Post Treatment Pain Level: Better Post Treatment Pain Location: Shoulder - Left OBJECTIVE MEASURES WITH LEVEL OF FUNCTION: TREATMENT: Therapeutic Exercise: 1: Shoulder wand flexion x 20 2: Shoulder wand raises behind back x 20 reps 3: Functional IR stretch x 20 using strap 4: Pulleys into flexion x 30 5: Standing shoulder scaption x 10 6: Standing shoulder scaption 1# x 10 reps 7: Standing scaption 2# 3 x 10 reps Skilled Intervention: Patient was educated in proper exercise technique and purpose for exercises. Skilled judgment was provided in selection of appropriate interventions. Correct performance of therapeutic exercises was facilitated with verbal and visual cuing. Billing Therapeutic Exercise Treatment Minutes: 40 Total Treatment Time Minutes (timed/untimed): 40 Thaddeus Shaw PT documented in this encounterMer[facility]06-09-2022 History of Present illness Narrative* Thaddeus Shaw PT - 2021 9:03 AM EDT Episode Visit Count: 1 Therapist That Will Oversee The Plan Of Care: Thaddeus Shaw Start of Care Date: 12/17/21 Onset Date: 09/16/21 Plan of Care Certification Date: 12/17/21 Next Certification Due Date: 01/21/22 Patient Identified by Name and Date of : Yes REHABILITATION AND SPORTS THERAPY PHYSICAL THERAPY EVALUATION PLAN OF CARE: Assessment: Natali Mondragon presents with chief complaint of L shoulder pain that interferes withcleaning;grooming;reaching overhead;reaching behind back . She presents with impairments in ADL's, joint mobility, overall function, range of motion and strength. Prognosis for therapy is Good due to: current objective clinical presentation . Pt demonstrates decreased shoulder flexion, ER, and IR with pain at end range and may benefit from a shoulder mobilization program. She will benefit from skilled therapy services to meet the goals established for this plan of care as noted below. Goals for Episode of Care: created on 12/17/21 through 02/11/22 [place] in home exercise program. Increase ROM of L shoulder by 10 degrees or more for improved joint mechanics and decreased pain Pt will report overall improvement in symptoms by 50% or better in 8 weeks for improved QOL Patient Goals: To get exercises to help the shoulder Planned Interventions, Frequency, and Duration: Current Frequency: 1x/week Duration: 4 weeks Total Number of Visits Planned: 4 Planned Treatment Interventions: Therapeutic exercise ([id number]);Neuromuscular re- education (35286);Manual therapy (29959);Self-fci management (33217);Patient/Family/Caregiver Education PLAN FOR NEXT VISIT: L GH distraction mobs to tolerance Patient demonstrates good understanding of plan of care and treatment. The above goals and plan of care were discussed and agreed upon by patient/family. SUBJECTIVE: Natali Mondragon is a 71 year old female seen today for L shoulder pain. Certain ways the pt moves it gets pain at the top of the shoulder. Rain seems to make the shoulder hurt worse. The strength feels about the same between the UE's. No popping, clicking, or grinding. Better with movement and no N/T. Patient Goals: To get exercises to help the shoulder Functional Limitations: cleaning;grooming;reaching overhead;reaching behind back Prior Level of Function: Independent without limitations Relevant History Preferred Language: Syriac Right or Left Handed: Right Intake Information: Prescription present Previous Treatment: Self prescribed exercises;Heat ;Ice Pain: Pain Pain Level: 2 (sitting; worse with overhead activity) Pain Location: Shoulder - Left Description: Sharp PROMIS Scales Higher is Better 12/29/2015 GH Physical - Percentile 31 % GH Mental - Percentile 26 % T-scores: mean of general population = 50. 5 points is clinically meaningfully difference Percentiles provide an indication of how the patient's score ranks in relation to the general population. Higher percentile rankings indicate better function/quality of life. 50th percentile is the average of the general population and indicates half of respondents had a worse score. T-scores: mean of general population = 50. 5 points is clinically meaningfully difference Percentiles provide an indication of how the patient's score ranks in relation to the general population. Higher percentile rankings indicate better function/quality of life. 50th percentile is the average of the general population and indicates half of respondents had a worse score. OBJECTIVE MEASURES WITH LEVEL OF FUNCTION: Posture / Alignment Posture: Rounded shoulders Cervical Spine ROM Cervical ROM : Limitation AROM Cervical Flexion AROM: Normal Cervical Extension AROM: Normal Cervical Side-Bend Right AROM: Normal Cervical Side-Bend Left AROM: Normal Cervical Rotation Right AROM: Normal Cervical Rotation Left AROM: Normal UE AROM R UE AROM: WNL L Shoulder Flex: 150 Degrees (Pain around 100) L Shoulder Internal Rotation (Functional): thumb to L3 UE PROM R Shoulder Internal Rotation: 90 Degrees (90 abd) R Shoulder External Rotation: 90 Degrees (90 abd) L Shoulder Internal Rotation: 50 Degrees L Shoulder External Rotation: 55 Degrees (firm end-feel) UE and Cervical Strength Strength Tested: Shoulder Functional Strength R UE Strength: Grossly 5/5 L UE Strength: Grossly 5/5 L Shoulder External Rotation: 4+/5 (Some pain with this) Education: Education Learning Preferences: Demonstration;Explanation;Performance;Printed Materials Barriers: None Learning/educational needs: Health promotion;Safety Education Provided: Yes, see treatment interventions for education provided Education Provided To: Patient Education Mode/Type: Demonstration;Explanation/Discussion;Literature/Printed Materials;Performance Response to Education/Teach Back: States/Identifies;Return Demonstration TREATMENT: PT Treatment Interventions: Therapeutic Exercise Evaluation Therapeutic Exercise: 1: Discussed therapy goals, exam findings, and purpose of the HEP. Discussed the need to avoid self-prescribed exercises that increase L shoulder pain. 2: Supine cane flexion to point of pain and back to starting position x 10 3: Seated shoulder ER wand x 5 reps Skilled Intervention: Patient was educated in proper exercise technique and purpose for exercises. Skilled judgment was provided in selection of appropriate interventions. Provided written instruction for home exercise program to facilitate proper performance and compliance. Correct performance of therapeutic exercises was facilitated with verbal and visual cuing. Billing * Evaluation Low Complexity: 1 Unit Therapeutic Exercise Treatment Minutes: 23 Total Treatment Time Minutes (timed/untimed): 45 Thaddeus Shaw PT documented in this encounterMer[facility]06-03-2022 Miscellaneous Notes* Telephone Encounter - Doug Anderson Ma - 12/11/2021 10:11 AM EDT Please see both phone encounters. * Telephone Encounter - Doug Anderson Ma - 12/11/2021 9:32 AM EDT Left message to call office. 12/11/2021 9:32 AM Doug Anderson Ma * Telephone Encounter - Doug Anderson Ma - 12/11/2021 9:32 AM EDT ----- Message from Hugo Ro MD sent at 12/10/2021 6:58 PM EDT ----- Moderate degenerative joint disease. Consider orthopedics if not better with PT. documented in this encounterMercy [facility]06-02-2022 History of Present illness Narrative* Howie Acuna RT(R) - 12/10/2021 9:50 AM EDT Radiology Service Progress Note PATIENT NAME: Natali Mondragon DATE OF SERVICE: December 10, 2021 TIME: 9:44 AM PATIENT IDENTITY VERIFICATION COMPLETED USING TWO (2) IDENTIFIERS: Name and Date of confirmedby patient verbally. FALL SCREENING: Has the patient had 2 falls in the last year or 1 fall with injury or currently using an Ambulatory Assistive Device (Walker, Cane, Wheelchair, Crutches, etc.)? No PATIENT GENDER DATA: Female. status: : No status: NO. PATIENT RELEVANT IMPLANT DATA REVIEWED: Not Applicable RADIOLOGY DEPARTMENT: General X-ray: Exam(s) Completed: Upper Extremity X- Ray(s): Shoulder, AP / TRUE AP / AXILLARY left PERIPHERAL IV DATA: Not applicable SIGNED BY: RT Cecilia(R) December 10, 2021 9:44 AM documented in this encounterMercy Health [facility]06-02-2022 History of Present illness Narrative* Hugo Ro MD - 12/10/2021 9:11 AM EDT This note was created using [employer]. Subjective Natali Mondragon is a 70 year old female. Her hypertension was controlled. Lipids needed rechecked. She had hysteroscopy in October. She had paroxysmal pain of the left upper arm that was sharp and severe at times for 4 months. She had no injury, and pain occurs possibly when she lifted something heavy like a bag of groceries. Pain lasts a few minutes, occurs sporadically 2 times a week. Review of Systems Constitutional: Negative. Respiratory: Negative. Cardiovascular: Negative. Gastrointestinal: Negative. Musculoskeletal: See HPI. Neurological: Negative for dizziness and headaches. Psychiatric/Behavioral: Negative. ACTIVE PROBLEM LIST Depression Desirae (Obstructive Sleep Apnea) Lumbago Tubular Adenoma Hyperlipemia Anxiety Primary Osteoarthritis of Right Knee Obesity, Class II, BMI 35-39.9 Osteoporosis Impingement Syndrome of Right Shoulder Arthritis of Midfoot Gastroesophageal Reflux Disease Essential Hypertension Urge Incontinence Current Outpatient Medications Medication Sig nortriptyline (PAMELOR) 10 mg capsule Take 1-2 capsules by mouth daily at bedtime. atorvastatin (LIPITOR) 10 mg tablet Take 1 tablet by mouth daily at bedtime. For cholesterol. amLODIPine (NORVASC) 5 mg tablet Take 2 tablets by mouth once daily. omeprazole (PRILOSEC) 40 mg capsule Take 1 capsule by mouth once daily. PARoxetine (PAXIL) 40 mg tablet Take 1 tablet by mouth once daily. MAGNESIUM ORAL Take by mouth. diclofenac sodium (VOLTAREN) 1 % topical gel Apply 2 g to affected area four times daily. Feet pain. Cholecalciferol, Vitamin D3, 1,000 unit cap Take 1 capsule by mouth once daily. calcium carbonate 600 mg-cholecalciferol 200 units (CALCIUM 600 + D,3,) 600 mg(1,500mg) -200 unit tab Take 1 tablet by mouth twice daily. vibegron (GEMTESA) 75 mg tablet Take 1 tablet by mouth once daily. No current facility-administered medications for this visit. Objective BP 110/72 (BP Site: Left Arm, BP Position: Sitting, BP Cuff Size: Large Adult) Pulse 92 Temp 36.4 C (97.5 F) (Temporal Artery) Resp 18 Wt 72 kg (158 lb 12.8 oz) BMI 32.07 kg/m Physical Exam Constitutional: General: She is not in acute distress. Appearance: She is not ill-appearing. Cardiovascular: Rate and Rhythm: Normal rate and regular rhythm. Heart sounds: No murmur heard. No gallop. Pulmonary: Breath sounds: Normal breath sounds. Abdominal: Palpations: Abdomen is soft. Tenderness: There is no abdominal tenderness. Musculoskeletal: Left shoulder: Tenderness present. No deformity, effusion or crepitus. Decreased range of motion. Normal strength. Right lower leg: No edema. Left lower leg: No edema. Comments: +impingement, left Neurological: Mental Status: She is alert. Assessment and Plan 1. Hyperlipidemia, unspecified hyperlipidemia type - ICD9: 272.4, ICD10: E78.5 (primary diagnosis) - to be determined upon return of lab results - COMP METABOLIC PANEL - LIPID PANEL BASIC 2. Insomnia, unspecified type - ICD9: 780.52, ICD10: G47.00 Controlled. - NORTRIPTYLINE 10 MG CAPSULE 3. Essential hypertension - ICD9: 401.9, ICD10: I10 - good control - CBC 4. Impingement syndrome of left shoulder - ICD9: 726.2, ICD10: M75.42 New concern. - XR SHOULDER GENERAL 3V OR MORE AP/TRUE AP/OTHER LEFT - CONSULT TO PHYSICAL THERAPY I discussed faxed requests for orthotics of various joints from [facility]. She did not need any orthotics. These were from telemarketers. Hugo Ro MD [facility] Miscellaneous Notes* Telephone Encounter - Malia La RN - 10/30/2021 8:47 AM EDT Patient has been identified by name and date of : Yes Patient phones for refill(s): Pending Prescriptions Disp Refills ATORVASTATIN 10 MG TABLET 90 tablet 3 Sig: Take 1 tablet by mouth daily at bedtime. For cholesterol. KAYLYN: No Date of last office visit in primary care: 06/10/2021 ; Future Appt. 12/10/2021 Last 2 Encounter Wt Readings: Date: Wt: 06/10/2021 73.5 kg (162 lb) 04/29/2021 73 kg (161 lb) Previous labs/tests for medication: Cholesterol: HDL Cholesterol (mg/dL) Date Value 05/05/2020 53 LDL Cholesterol (mg/dL) Date Value 05/05/2020 66 ALT (U/L) Date Value 05/05/2020 10 Non HDL Cholesterol (mg/dL) Date Value 05/05/2020 77 Please advise. Thank you. Malia La RN documented [facility] Chief complaint+Reason for visit Narrative* Chief Complaint Neoplasm of unspecif ied behavior of other genitour URETHRAL DIVERTICULUM tara referral possible cancer? MRI in chart CHEST WALL PAIN/EORDER FOR RAD 10/07/21 Amb Documentation HYSTER D&C HYSTER D&C HYSTER D&C Reason for Visit Anxiety Chest wall pain Endometrial thickening on ultrasound Hyperlipidemia Urinary urgency Hypertension Endometrial thickening on ultrasound [facility] Work Phone: [phone]) 439-767407-27-2021 History of Present illness Narrative* Shahnaz Medina RT(R) - 02/03/2021 9:50 AM EDT Radiology Service Progress Note PATIENT NAME: Natali Mondragon DATE OF SERVICE: February 03, 2021 TIME: 9:41 AM PATIENT IDENTITY VERIFICATION COMPLETED USING TWO (2) IDENTIFIERS: Name and Date of confirmedby patient verbally. FALL SCREENING: Has the patient had 2 falls in the last year or 1 fall with injury or currently using an Ambulatory Assistive Device (Walker, Cane, Wheelchair, Crutches, etc.)? Yes, Patient High Riskfor Falls What interventions were put in place to prevent falls during this visit? Instructed Patient to Callfor Help if Needed, Offered Assistance with Transfers/Clothing and Increased Observations by Caregivers PATIENT GENDER DATA: Female. status: : No status: NO. PATIENT RELEVANT IMPLANT DATA REVIEWED: Yes RADIOLOGY DEPARTMENT: General X-ray: Exam(s) Completed: Lower Extremity X- Ray(s): Knee, AP / LAT Left and Wt. Bearing PERIPHERAL IV DATA: Not applicable SIGNED BY: RT Elda(R) February 03, 2021 9:41 AM documented in this encounter[facility]12[facility] History of Past illness Narrative* Problem Noted Date Resolved Date Knee injuries, left, initial encounter 0 10/21/2020 Pain in right knee 07/28/2015 08/10/2017 Breast screening, unspecified 09/06/2014 Special screening for malignant neoplasms, colon 11/17/2011 12/01/2015 Pain in limb 07/16/2011 12/01/2015 Enthesopathy of unspecified site 06/29/2011 12/01/2015 Unspecified sleep apnea 01/14/2009 04/28/20 15 HYPERLIPIDEMIA 01/14/2009 12/01/2015 Exostosis of unspecified site 01/18/2008 Neuralgia, neuritis, and radiculitis, unspecifie d 01/18/2008 04/28/2015 HIGH BLOOD PRESSURE-NO HYPERTENSN 01/10/2008 04/09/2016 documented as of this encounter (statuses as of 10/30/2021) [facility] Narrative* Problem Noted Date Resolved Date Knee injuries, left, initial encounter 0 10/21/2020 Pain in right knee 07/28/2015 08/10/2017 Breast screening, unspecified 09/06/2014 Special screening for malignant neoplasms, colon 11/17/2011 12/01/2015 Pain in limb 07/16/2011 12/01/2015 Enthesopathy of unspecified site 06/29/2011 12/01/2015 Unspecified sleep apnea 01/14/2009 04/28/20 15 HYPERLIPIDEMIA 01/14/2009 12/01/2015 Exostosis of unspecified site 01/18/2008 Neuralgia, neuritis, and radiculitis, unspecifie d 01/18/2008 04/28/2015 HIGH BLOOD PRESSURE-NO HYPERTENSN 01/10/2008 04/09/2016 documented as of this encounter (statuses as of 12/10/2021) [facility] Narrative* Problem Noted Date Resolved Date Knee injuries, left, initial encounter 0 10/21/2020 Pain in right knee 07/28/2015 08/10/2017 Breast screening, unspecified 09/06/2014 Special screening for malignant neoplasms, colon 11/17/2011 12/01/2015 Pain in limb 07/16/2011 12/01/2015 Enthesopathy of unspecified site 06/29/2011 12/01/2015 Unspecified sleep apnea 01/14/2009 04/28/20 15 HYPERLIPIDEMIA 01/14/2009 12/01/2015 Exostosis of unspecified site 01/18/2008 Neuralgia, neuritis, and radiculitis, unspecifie d 01/18/2008 04/28/2015 HIGH BLOOD PRESSURE-NO HYPERTENSN 01/10/2008 04/09/2016 documented as of this encounter (statuses as of 12/14/2021) [facility] Narrative* Problem Noted Date Resolved Date Knee injuries, left, initial encounter 0 10/21/2020 Pain in right knee 07/28/2015 08/10/2017 Breast screening, unspecified 09/06/2014 Special screening for malignant neoplasms, colon 11/17/2011 12/01/2015 Pain in limb 07/16/2011 12/01/2015 Enthesopathy of unspecified site 06/29/2011 12/01/2015 Unspecified sleep apnea 01/14/2009 04/28/20 15 HYPERLIPIDEMIA 01/14/2009 12/01/2015 Exostosis of unspecified site 01/18/2008 Neuralgia, neuritis, and radiculitis, unspecifie d 01/18/2008 04/28/2015 HIGH BLOOD PRESSURE-NO HYPERTENSN 01/10/2008 04/09/2016 documented as of this encounter (statuses as of 2021) [facility] Narrative* Problem Noted Date Resolved Date Knee injuries, left, initial encounter 0 10/21/2020 Pain in right knee 07/28/2015 08/10/2017 Breast screening, unspecified 09/06/2014 Special screening for malignant neoplasms, colon 11/17/2011 12/01/2015 Pain in limb 07/16/2011 12/01/2015 Enthesopathy of unspecified site 06/29/2011 12/01/2015 Unspecified sleep apnea 01/14/2009 04/28/20 15 HYPERLIPIDEMIA 01/14/2009 12/01/2015 Exostosis of unspecified site 01/18/2008 Neuralgia, neuritis, and radiculitis, unspecifie d 01/18/2008 04/28/2015 HIGH BLOOD PRESSURE-NO HYPERTENSN 01/10/2008 04/09/2016 documented as of this encounter (statuses as of 12/31/2021) [facility] Narrative* Problem Noted Date Resolved Date Knee injuries, left, initial encounter 0 10/21/2020 Pain in right knee 07/28/2015 08/10/2017 Breast screening, unspecified 09/06/2014 Special screening for malignant neoplasms, colon 11/17/2011 12/01/2015 Pain in limb 07/16/2011 12/01/2015 Enthesopathy of unspecified site 06/29/2011 12/01/2015 Unspecified sleep apnea 01/14/2009 04/28/20 15 HYPERLIPIDEMIA 01/14/2009 12/01/2015 Exostosis of unspecified site 01/18/2008 Neuralgia, neuritis, and radiculitis, unspecifie d 01/18/2008 04/28/2015 HIGH BLOOD PRESSURE-NO HYPERTENSN 01/10/2008 04/09/2016 documented as of this encounter (statuses as of 01/06/2022) [facility] Narrative* Problem Noted Date Resolved Date Knee injuries, left, initial encounter 0 10/21/2020 Pain in right knee 07/28/2015 08/10/2017 Breast screening, unspecified 09/06/2014 Special screening for malignant neoplasms, colon 11/17/2011 12/01/2015 Pain in limb 07/16/2011 12/01/2015 Enthesopathy of unspecified site 06/29/2011 12/01/2015 Unspecified sleep apnea 01/14/2009 04/28/20 15 HYPERLIPIDEMIA 01/14/2009 12/01/2015 Exostosis of unspecified site 01/18/2008 Neuralgia, neuritis, and radiculitis, unspecifie d 01/18/2008 04/28/2015 HIGH BLOOD PRESSURE-NO HYPERTENSN 01/10/2008 04/09/2016 documented as of this encounter (statuses as of 01/14/2022) [facility]ative* Problem Noted Date Resolved Date Knee injuries, left, initial encounter 0 10/21/2020 Pain in right knee 07/28/2015 08/10/2017 Breast screening, unspecified 09/06/2014 Special screening for malignant neoplasms, colon 11/17/2011 12/01/2015 Pain in limb 07/16/2011 12/01/2015 Enthesopathy of unspecified site 06/29/2011 12/01/2015 Unspecified sleep apnea 01/14/2009 04/28/20 15 HYPERLIPIDEMIA 01/14/2009 12/01/2015 Exostosis of unspecified site 01/18/2008 Neuralgia, neuritis, and radiculitis, unspecifie d 01/18/2008 04/28/2015 HIGH BLOOD PRESSURE-NO HYPERTENSN 01/10/2008 04/09/2016 documented as of this encounter (statuses as of 01/28/2022) [facility]ative* Problem Noted Date Resolved Date Knee injuries, left, initial encounter 0 10/21/2020 Pain in right knee 07/28/2015 08/10/2017 Breast screening, unspecified 09/06/2014 Special screening for malignant neoplasms, colon 11/17/2011 12/01/2015 Pain in limb 07/16/2011 12/01/2015 Enthesopathy of unspecified site 06/29/2011 12/01/2015 Unspecified sleep apnea 01/14/2009 04/28/20 15 HYPERLIPIDEMIA 01/14/2009 12/01/2015 Exostosis of unspecified site 01/18/2008 Neuralgia, neuritis, and radiculitis, unspecifie d 01/18/2008 04/28/2015 HIGH BLOOD PRESSURE-NO HYPERTENSN 01/10/2008 04/09/2016 documented as of this encounter (statuses as of 04/06/2022) [facility] Narrative* Problem Noted Date Resolved Date Knee injuries, left, initial encounter 0 10/21/2020 Obesity, Class II, BMI 35-39.9 03/29/2018 1 07/24/2021 Primary osteoarthritis of right knee 07/28/2015 05/24/2022 Pain in right knee 07/28/2015 08/10/2017 Breast screening, unspecified 09/06/2014 Special screening for malignant neoplasms, colon 11/17/2011 12/01/2015 Pain in limb 07/16/2011 12/01/2015 Enthesopathy of unspecified site 06/29/2011 12/01/2015 Unspecified sleep apnea 01/14/2009 04/28/20 15 HYPERLIPIDEMIA 01/14/2009 12/01/2015 Exostosis of unspecified site 01/18/2008 Neuralgia, neuritis, and radiculitis, unspecifie d 01/18/2008 04/28/2015 HIGH BLOOD PRESSURE-NO HYPERTENSN 01/10/2008 04/09/2016 documented as of this encounter (statuses as of 05/25/2022) [facility]ative* Problem Noted Date Resolved Date Knee injuries, left, initial encounter 0 10/21/2020 Obesity, Class II, BMI 35-39.9 03/29/2018 1 07/24/2021 Primary osteoarthritis of right knee 07/28/2015 05/24/2022 Pain in right knee 07/28/2015 08/10/2017 Breast screening, unspecified 09/06/2014 Special screening for malignant neoplasms, colon 11/17/2011 12/01/2015 Pain in limb 07/16/2011 12/01/2015 Enthesopathy of unspecified site 06/29/2011 12/01/2015 Unspecified sleep apnea 01/14/2009 04/28/20 15 HYPERLIPIDEMIA 01/14/2009 12/01/2015 Exostosis of unspecified site 01/18/2008 Neuralgia, neuritis, and radiculitis, unspecifie d 01/18/2008 04/28/2015 HIGH BLOOD PRESSURE-NO HYPERTENSN 01/10/2008 04/09/2016 documented as of this encounter (statuses as of 06/29/2022) [facility]ative* Problem Noted Date Resolved Date Knee injuries, left, initial encounter 0 10/21/2020 Obesity, Class II, BMI 35-39.9 03/29/2018 1 07/24/2021 Primary osteoarthritis of right knee 07/28/2015 05/24/2022 Pain in right knee 07/28/2015 08/10/2017 Breast screening, unspecified 09/06/2014 Special screening for malignant neoplasms, colon 11/17/2011 12/01/2015 Pain in limb 07/16/2011 12/01/2015 Enthesopathy of unspecified site 06/29/2011 12/01/2015 Unspecified sleep apnea 01/14/2009 04/28/20 15 HYPERLIPIDEMIA 01/14/2009 12/01/2015 Exostosis of unspecified site 01/18/2008 Neuralgia, neuritis, and radiculitis, unspecifie d 01/18/2008 04/28/2015 HIGH BLOOD PRESSURE-NO HYPERTENSN 01/10/2008 04/09/2016 documented as of this encounter (statuses as of 06/30/2022) [facility]* Problem Noted Date Resolved Date Knee injuries, left, initial encounter 0 10/21/2020 Obesity, Class II, BMI 35-39.9 03/29/2018 1 07/24/2021 Primary osteoarthritis of right knee 07/28/2015 05/24/2022 Pain in right knee 07/28/2015 08/10/2017 Breast screening, unspecified 09/06/2014 Special screening for malignant neoplasms, colon 11/17/2011 12/01/2015 Pain in limb 07/16/2011 12/01/2015 Enthesopathy of unspecified site 06/29/2011 12/01/2015 Unspecified sleep apnea 01/14/2009 04/28/20 15 HYPERLIPIDEMIA 01/14/2009 12/01/2015 Exostosis of unspecified site 01/18/2008 Neuralgia, neuritis, and radiculitis, unspecifie d 01/18/2008 04/28/2015 HIGH BLOOD PRESSURE-NO HYPERTENSN 01/10/2008 04/09/2016 documented as of this encounter (statuses as of 09/21/2022) [facility]* Problem Noted Date Resolved Date Knee injuries, left, initial encounter 0 10/21/2020 Obesity, Class II, BMI 35-39.9 03/29/2018 1 07/24/2021 Primary osteoarthritis of right knee 07/28/2015 05/24/2022 Pain in right knee 07/28/2015 08/10/2017 Breast screening, unspecified 09/06/2014 Special screening for malignant neoplasms, colon 11/17/2011 12/01/2015 Pain in limb 07/16/2011 12/01/2015 Enthesopathy of unspecified site 06/29/2011 12/01/2015 Unspecified sleep apnea 01/14/2009 04/28/20 15 HYPERLIPIDEMIA 01/14/2009 12/01/2015 Exostosis of unspecified site 01/18/2008 Neuralgia, neuritis, and radiculitis, unspecifie d 01/18/2008 04/28/2015 HIGH BLOOD PRESSURE-NO HYPERTENSN 01/10/2008 04/09/2016 documented as of this encounter (statuses as of 09/22/2022) [facility]* Problem Noted Date Resolved Date Knee injuries, left, initial encounter 0 10/21/2020 Obesity, Class II, BMI 35-39.9 03/29/2018 1 07/24/2021 Primary osteoarthritis of right knee 07/28/2015 05/24/2022 Pain in right knee 07/28/2015 08/10/2017 Breast screening, unspecified 09/06/2014 Special screening for malignant neoplasms, colon 11/17/2011 12/01/2015 Pain in limb 07/16/2011 12/01/2015 Enthesopathy of unspecified site 06/29/2011 12/01/2015 Unspecified sleep apnea 01/14/2009 04/28/20 15 HYPERLIPIDEMIA 01/14/2009 12/01/2015 Exostosis of unspecified site 01/18/2008 Neuralgia, neuritis, and radiculitis, unspecifie d 01/18/2008 04/28/2015 HIGH BLOOD PRESSURE-NO HYPERTENSN 01/10/2008 04/09/2016 documented as of this encounter (statuses as of 12/13/2022) [facility]* Problem Noted Date Resolved Date Knee injuries, left, initial encounter 0 10/21/2020 Obesity, Class II, BMI 35-39.9 03/29/2018 1 07/24/2021 Primary osteoarthritis of right knee 07/28/2015 05/24/2022 Pain in right knee 07/28/2015 08/10/2017 Breast screening, unspecified 09/06/2014 Special screening for malignant neoplasms, colon 11/17/2011 12/01/2015 Pain in limb 07/16/2011 12/01/2015 Enthesopathy of unspecified site 06/29/2011 12/01/2015 Unspecified sleep apnea 01/14/2009 04/28/20 15 HYPERLIPIDEMIA 01/14/2009 12/01/2015 Exostosis of unspecified site 01/18/2008 Neuralgia, neuritis, and radiculitis, unspecifie d 01/18/2008 04/28/2015 HIGH BLOOD PRESSURE-NO HYPERTENSN 01/10/2008 04/09/2016 documented as of this encounter (statuses as of 12/13/2022) [facility]* Problem Noted Date Resolved Date Knee injuries, left, initial encounter 10/21/2020 Obesity, Class II, BMI 35-39.9 03/29/2018 1 07/24/2021 Primary osteoarthritis of right knee 07/28/2015 05/24/2022 Pain in right knee 07/28/2015 08/10/2017 Breast screening, unspecified 09/06/2014 Special screening for malignant neoplasms, colon 11/17/2011 12/01/2015 Pain in limb 07/16/2011 12/01/2015 Enthesopathy of unspecified site 06/29/2011 12/01/2015 Unspecified sleep apnea 01/14/2009 04/28/20 15 HYPERLIPIDEMIA 01/14/2009 12/01/2015 Exostosis of unspecified site 01/18/2008 Neuralgia, neuritis, and radiculitis, unspecifie d 01/18/2008 04/28/2015 HIGH BLOOD PRESSURE-NO HYPERTENSN 01/10/2008 04/09/2016 documented as of this encounter (statuses as of 12/16/2022) [facility]* Problem Noted Date Resolved Date Knee injuries, left, initial encounter 0 10/21/2020 Obesity, Class II, BMI 35-39.9 03/29/2018 1 07/24/2021 Primary osteoarthritis of right knee 07/28/2015 05/24/2022 Pain in right knee 07/28/2015 08/10/2017 Breast screening, unspecified 09/06/2014 Special screening for malignant neoplasms, colon 11/17/2011 12/01/2015 Pain in limb 07/16/2011 12/01/2015 Enthesopathy of unspecified site 06/29/2011 12/01/2015 Unspecified sleep apnea 01/14/2009 04/28/20 15 HYPERLIPIDEMIA 01/14/2009 12/01/2015 Exostosis of unspecified site 01/18/2008 Neuralgia, neuritis, and radiculitis, unspecifie d 01/18/2008 04/28/2015 HIGH BLOOD PRESSURE-NO HYPERTENSN 01/10/2008 04/09/2016 documented as of this encounter (statuses as of 12/23/2022) [facility]* Problem Noted Date Resolved Date Knee injuries, left, initial encounter 0 10/21/2020 Obesity, Class II, BMI 35-39.9 03/29/2018 1 07/24/2021 Primary osteoarthritis of right knee 07/28/2015 05/24/2022 Pain in right knee 07/28/2015 08/10/2017 Breast screening, unspecified 09/06/2014 Special screening for malignant neoplasms, colon 11/17/2011 12/01/2015 Pain in limb 07/16/2011 12/01/2015 Enthesopathy of unspecified site 06/29/2011 12/01/2015 Unspecified sleep apnea 01/14/2009 04/28/20 15 HYPERLIPIDEMIA 01/14/2009 12/01/2015 Exostosis of unspecified site 01/18/2008 Neuralgia, neuritis, and radiculitis, unspecifie d 01/18/2008 04/28/2015 HIGH BLOOD PRESSURE-NO HYPERTENSN 01/10/2008 04/09/2016 documented as of this encounter (statuses as of 12/28/2022) [facility]* Problem Noted Date Resolved Date Knee injuries, left, initial encounter 0 10/21/2020 Obesity, Class II, BMI 35-39.9 03/29/2018 1 07/24/2021 Primary osteoarthritis of right knee 07/28/2015 05/24/2022 Pain in right knee 07/28/2015 08/10/2017 Breast screening, unspecified 09/06/2014 Special screening for malignant neoplasms, colon 11/17/2011 12/01/2015 Pain in limb 07/16/2011 12/01/2015 Enthesopathy of unspecified site 06/29/2011 12/01/2015 Unspecified sleep apnea 01/14/2009 04/28/20 15 HYPERLIPIDEMIA 01/14/2009 12/01/2015 Exostosis of unspecified site 01/18/2008 Neuralgia, neuritis, and radiculitis, unspecifie d 01/18/2008 04/28/2015 HIGH BLOOD PRESSURE-NO HYPERTENSN 01/10/2008 04/09/2016 documented as of this encounter (statuses as of 12/28/2022) [facility]* Problem Noted Date Resolved Date Knee injuries, left, initial encounter 10/21/2020 Obesity, Class II, BMI 35-39.9 03/29/2018 1 07/24/2021 Primary osteoarthritis of right knee 07/28/2015 05/24/2022 Pain in right knee 07/28/2015 08/10/2017 Breast screening, unspecified 09/06/2014 Special screening for malignant neoplasms, colon 11/17/2011 12/01/2015 Pain in limb 07/16/2011 12/01/2015 Enthesopathy of unspecified site 06/29/2011 12/01/2015 Unspecified sleep apnea 01/14/2009 04/28/20 15 HYPERLIPIDEMIA 01/14/2009 12/01/2015 Exostosis of unspecified site 01/18/2008 Neuralgia, neuritis, and radiculitis, unspecifie d 01/18/2008 04/28/2015 HIGH BLOOD PRESSURE-NO HYPERTENSN 01/10/2008 04/09/2016 documented as of this encounter (statuses as of 12/30/2022) [facility]* Problem Noted Date Diagnosed Date Resolved Date Knee injuries, left, initial encounter 07/08/2020 10/21/2020 Obesity, Class II, BMI 35-39.9 03/29/2018 05/24/2022 Primary osteoarthritis of right knee 07/28/2015 05/24/2022 Pain in right knee 07/28/2015 8 Breast screening, unspecified 09/06/2014 12/01/2015 Special screening for malign ant neoplasms, colon 11/17/2011 12/01/2015 Pain in limb 07/16/2011 12/01/2015 Enthesopathy of unspecified site 06/29/2011 12/01/2015 Unspecified sleep apnea 01/14/200904/10 HYPERLIPIDEMIA 01/14/2009 12/01/2015 Exostosis of unspecified site 01/18/2008 04/28/2015 Neuralgia, neuritis, and rad iculitis, unspecified 01/18/2008 04/28/2015 HIGH BLOOD PRESSURE-NO HYPERTENSN 01/10/2008 04/09/2016 documented as of this encounter (statuses as of 04/09/2023) [facility]* Problem Noted Date Diagnosed Date Resolved Date Knee injuries, left, initial encounter 07/08/2020 10/21/2020 Obesity, Class II, BMI 35-39.9 03/29/2018 05/24/2022 Primary osteoarthritis of right knee 07/28/2015 05/24/2022 Pain in right knee 07/28/2015 8 Breast screening, unspecified 09/06/2014 12/01/2015 Special screening for malign ant neoplasms, colon 11/17/2011 12/01/2015 Pain in limb 07/16/2011 12/01/2015 Enthesopathy of unspecified site 06/29/2011 12/01/2015 Unspecified sleep apnea 01/14/200904/10 HYPERLIPIDEMIA 01/14/2009 12/01/2015 Exostosis of unspecified site 01/18/2008 04/28/2015 Neuralgia, neuritis, and rad iculitis, unspecified 01/18/2008 04/28/2015 HIGH BLOOD PRESSURE-NO HYPERTENSN 01/10/2008 04/09/2016 documented as of this encounter (statuses as of 05/15/2023) [facility]* Problem Noted Date Diagnosed Date Resolved Date Knee injuries, left, initial encounter 07/08/2020 10/21/2020 Obesity, Class II, BMI 35-39.9 03/29/2018 05/24/2022 Primary osteoarthritis of right knee 07/28/2015 05/24/2022 Pain in right knee 07/28/2015 8 Breast screening, unspecified 09/06/2014 12/01/2015 Special screening for malign ant neoplasms, colon 11/17/2011 12/01/2015 Pain in limb 07/16/2011 12/01/2015 Enthesopathy of unspecified site 06/29/2011 12/01/2015 Unspecified sleep apnea 01/14/200904/10 HYPERLIPIDEMIA 01/14/2009 12/01/2015 Exostosis of unspecified site 01/18/2008 04/28/2015 Neuralgia, neuritis, and rad iculitis, unspecified 01/18/2008 04/28/2015 HIGH BLOOD PRESSURE-NO HYPERTENSN 01/10/2008 04/09/2016 documented as of this encounter (statuses as of 06/09/2023) [facility]* Problem Noted Date Diagnosed Date Resolved Date Knee injuries, left, initial encounter 07/08/2020 10/21/2020 Obesity, Class II, BMI 35-39.9 03/29/2018 05/24/2022 Primary osteoarthritis of right knee 07/28/2015 05/24/2022 Pain in right knee 07/28/2015 8 Breast screening, unspecified 09/06/2014 12/01/2015 Special screening for malign ant neoplasms, colon 11/17/2011 12/01/2015 Pain in limb 07/16/2011 12/01/2015 Enthesopathy of unspecified site 06/29/2011 12/01/2015 Unspecified sleep apnea 01/14/200904/10 HYPERLIPIDEMIA 01/14/2009 12/01/2015 Exostosis of unspecified site 01/18/2008 04/28/2015 Neuralgia, neuritis, and rad iculitis, unspecified 01/18/2008 04/28/2015 HIGH BLOOD PRESSURE-NO HYPERTENSN 01/10/2008 04/09/2016 documented as of this encounter (statuses as of 06/10/2023) [facility]* Problem Noted Date Diagnosed Date Resolved Date Knee injuries, left, initial encounter 07/08/2020 10/21/2020 Obesity, Class II, BMI 35-39.9 03/29/2018 05/24/2022 Primary osteoarthritis of right knee 07/28/2015 05/24/2022 Pain in right knee 07/28/2015 8 Breast screening, unspecified 09/06/2014 12/01/2015 Pain in limb 07/16/2011 12/01/2015 Enthesopathy of unspecified site 06/29/2011 12/01/2015 Unspecified sleep apnea 01/14/200904/10 HYPERLIPIDEMIA 01/14/2009 12/01/2015 Exostosis of unspecified site 01/18/2008 04/28/2015 Neuralgia, neuritis, and rad iculitis, unspecified 01/18/2008 04/28/2015 HIGH BLOOD PRESSURE-NO HYPERTENSN 01/10/2008 04/09/2016 documented as of this encounter (statuses as of 10/10/2023) [facility]12-09-2020 History of Present illness Narrative* Howie Acuna (Rt), Ba - 06/18/2020 5:50 PM EST Radiology Service Progress Note PATIENT NAME: Natali Mondragon DATE OF SERVICE: June 18, 2020 TIME: 6:36 PM PATIENT IDENTITY VERIFICATION COMPLETED USING TWO (2) IDENTIFIERS: Name and Date of confirmedby patient verbally. FALL SCREENING: Has the patient had 2 falls in the last year or 1 fall with injury or currently using an Ambulatory Assistive Device (Walker, Cane, Wheelchair, Crutches, etc.)? Yes, Patient High Riskfor Falls What interventions were put in place to prevent falls during this visit? Instructed Patient to Callfor Help if Needed, Offered Assistance with Transfers/Clothing and Instructed Patient to Remain Seated (Not on Exam Table) Until Exam PATIENT GENDER DATA: Female. status: : No status: NO. PATIENT RELEVANT IMPLANT DATA REVIEWED: Not Applicable RADIOLOGY DEPARTMENT: General X-ray: Exam(s) Completed: Lower Extremity X- Ray(s): Knee, AP / Lat / Tunne / Merchant Left: PERIPHERAL IV DATA: Not applicable SIGNED BY: RT Cecilia June 18, 2020 6:36 PM [facility] Diagnosis Onset Date Resolution Status Anxiety acute Chest wall pain acute Endometrial thickening on ultrasound acute Hyperlipidemia acute Urinary urgency acute Hypertension chronic Endometrial thickening on ultrasound acute [facility] Work Phone: Evaluation note* Diagnosis Hyperlipidemia, unspecified hyperlipidemia type [facility] Diagnosis Hyperlipidemia, unspecified hyperlipidemia type- Primary Insomnia, unspecified type Essential hypertension Unspecified essential hypertension Impingement syndrome of left shoulder Other affections of shoulder region, not elsewhere classified [facility] Diagnosis Impingement syndrome of left shoulder Other affections of shoulder region, not elsewhere classified [facility] Diagnosis Impingement syndrome of left shoulder- Primary Other affections of shoulder region, not elsewhere classified [facility]* Diagnosis Gastric ulcer without hemorrhage or perforation, unspecified chronicity [facility] Diagnosis Impingement syndrome of left shoulder- Primary Other affections of shoulder region, not elsewhere classified [facility] Diagnosis Impingement syndrome of left shoulder- Primary Other affections of shoulder region, not elsewhere classified [facility]* Diagnosis Anxiety Anxiety state, unspecified Depression, unspecified depression type [facility]* Diagnosis Medicare annual wellness visit, subsequent- Primary Routine general medical examination at a health care facility Obesity, Class I, BMI 30-34.9 Obesity, unspecified Encounter for screening mammogram for malignant neoplasm of breast Other screening mammogram Hyperlipidemia, unspecified hyperlipidemia type Essential hypertension Unspecified essential hypertension Osteoporosis, unspecified osteoporosis type, unspecified pathological fracture presence Depression, unspecified depression type Anxiety Anxiety state, unspecified DESIRAE (obstructive sleep apnea) Obstructive sleep apnea (adult) (pediatric) Tubular adenoma Benign neoplasm of unspecified site [facility] Diagnosis Suspected COVID-19 virus infection- Primary [facility]* Diagnosis URI, acute- Primary Acute upper respiratory infections of unspecified site [facility]* Diagnosis Urinary frequency- Primary Acute bilateral low back pain without sciatica Microscopic hematuria [facility] Diagnosis Dizziness- Primary Dizziness and giddiness Depression, unspecified depression type Essential hypertension Unspecified essential hypertension Gastroesophageal reflux disease, unspecified whether esophagitis present DESIRAE (obstructive sleep apnea) Obstructive sleep apnea (adult) (pediatric) documented in this encounter [facility] noteNo assessment information [facility]WMart[facility] Work Phone: Evaluation note* Diagnosis Anxiety Anxiety state, unspecified Depression, unspecified depression type documented in this encounter [facility] note* Diagnosis Encounter for screening mammogram for malignant neoplasm of breast Other screening mammogram documented in this encounter [facility] note* Diagnosis Rib pain on right side- Primary Chest pain, unspecified documented in this encounter [facility] note* Diagnosis Hyperlipidemia, unspecified hyperlipidemia type documented in this encounter [facility] note* Diagnosis Essential hypertension Unspecified essential hypertension Gastroesophageal reflux disease, unspecified whether esophagitis present Anxiety Anxiety state, unspecified Depression, unspecified depression type documented in this encounter [facility] note* Diagnosis Rib pain on right side Chest pain, unspecified documented in this encounter [facility] note* Diagnosis Acute bilateral low back pain without sciatica documented in this encounter [facility] note* Diagnosis Impingement syndrome of left shoulder Other affections of shoulder region, not elsewhere classified documented in this encounter [facility] note* Diagnosis Acute pain of left knee documented in this encounter [facility] note* Diagnosis Nausea- Primary Nausea alone Nausea Nausea alone documented in this encounter [facility] note* Diagnosis Nausea Nausea alone documented in this encounter [facility] note* Diagnosis Nausea and vomiting, unspecified vomiting type- Primary Epigastric pain Abdominal pain, epigastric Dyspnea, unspecified type Dehydration documented in this encounter [facility] note* Diagnosis Nausea and vomiting, unspecified vomiting type- Primary Essential hypertension Unspecified essential hypertension documented in this encounter [facility] note* Diagnosis Nausea and vomiting, unspecified vomiting type- Primary Diarrhea, unspecified type documented in this encounter [facility] note* Diagnosis Right inguinal hernia- Primary Inguinal hernia without mention of obstruction or gangrene, unilateral or unspecified, (not specified as recurrent) Nausea and vomiting, unspecified vomiting type Essential hypertension Unspecified essential hypertension documented in this encounter [facility] note* Diagnosis Medicare annual wellness visit, subsequent- Primary Routine general medical examination at a health care facility Urinary frequency Acute pain of left knee Injury of left knee, initial encounter Essential hypertension Unspecified essential hypertension Anxiety Anxiety state, unspecified Depression, unspecified depression type [facility]* Diagnosis Acute pain of left knee Injury of left knee, initial encounter [facility]* Diagnosis Acute pain of left knee- Primary Injury of left knee, initial encounter [facility]* Diagnosis Acute pain of left knee Injury of left knee, initial encounter [facility]* Diagnosis Acute pain of left knee- Primary [facility]* Diagnosis Onset Date Resolution Status Admit Date Encounter for routine gynecological examination noneactive January 082024 8:54am [facility] Work Phone: Hospital Discharge instructionsAmbulatory Orders* General Surgery Location: None Selected [facility] Work Phone: Progress note Author Kay Cronin [facility] Note Date/Time January 25, 2025 9:32 am [facility] [address] [place] [address], [address] [place] [address] OFFICE VISIT Date of Service: 01/25/25 MR#: [id number] Acct: [id number] Name: NATALI MONDRAGON Rep #: [id number] : 1950 Provider: Dr. 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 Ditching Required: No Is patient in pain?: No Allergies No Known Allergies Allergy (Verified 01/25/25 09:02) Medications ?Medication ?Instructions ?Recorded ?Confirmed ?Type amlodipine 10 mg tablet 10 mg PO DAILY 10/07/2101/08 History paroxetine HCl 40 mg tablet (Paxil) 40 mg PO DAILY 01/25/25 History atorvastatin 10 mg tablet 10 mg PO QHS 10/08/21 History cholecalciferol (vitamin D3) 50 50 mcg PO DAILY 01/25/25 History mcg (2,000 unit) capsule multivitamin 1 tab PO DAILY 10/08/2101/08 History omeprazole 40 mg capsule,delayed 40 mg PO DAILY 01/25/25 History release osteo biflex 1 tab PO DAILY 10/08/2101/08 History vibegron 75 mg tablet (Gemtesa) 75 mg PO DAILY 2 01/25/25 History vitamin E 200 unit capsule 200 unit PO DAILY 10/08/21 01/25/25 History Is last menstrual period known: No Post menopausal: Yes Patient : No : No PFSH Medical History Genetic testing Status post hysteroscopy Wears glasses Depression Anxiety Arthritis Bladder disease High cholesterol Gastric reflux Shortness of breath on exertion Former smoker CPAP (continuous positive airway pressure) dependence Hypertension Surgical History S/P dilation and curettage (~10/14/21) History of Family History Mother Lung cancer Daughter Lung cancer Father Stomach cancer Social History Smoking Status: Former smoker alcohol intake: current details: occasionally substance use type: does not use caffeine: Yes what type of physical activity do you participate in: none seatbelt use: always do you feel safe at home: Yes additional social history: History 3 Elective abortions Hx Para 3 Spontaneous abortions Hx # Term Pregnancies Ectopic pregnancies Hx # Pregnancies Multiple births # of living children HPI Encounter for routine gynecological examination Details: NATALI MONDRAGON is a 74 year old who presents for annual exam and EMB for thickened endometrium. 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 Last PAP: No longer indicated History of abnormal PAP: [] Last mammogram: 06/08/2024 History of abnormal mammogram: No Colon cancer screening: Will place referral to General Surgery for colonoscopy Other preventative health care screenings: PCP Dr Yeung Female Reproductive History Questions: metorrhagia: No, sexually active: Yes, dyspareunia: No and PCB: No Menopausal Symptoms: No hot flashes, No night sweats, No weight change, No mood changes, No difficulty concentrating, No sleep problems and No change in libido ROS Const Constitutional: Reports as per HPI; Denies fatigue, increased appetite, poor appetite, night sweats, weight gain or weight loss Cardio Card: Denies chest pain Resp Resp: Denies cough or dyspnea GI GI: Reports as per HPI; Denies abdominal pain, bloating, constipation, nausea or vomiting : Reports as per HPI and other; Denies difficulty voiding, dysuria, hematuria, hot flashes, nipple discharge, pelvic pain, prolapse symptoms, urinary frequency, urinary incontinence, urinary urgency, vaginal discharge, vaginal dryness, vaginal odor or vaginal pruritus Skin Skin/Breast: Denies changing lesions, breast mass, breast pain, breast skin changes or nipple discharge Psych Psych: Denies anxiety, change in libido, depression or difficulty concentrating Exam Const General: cooperative, healthy appearing, comfortable, no acute distress, well developed and well groomed [facility] Head: normal to inspection and normocephalic Ears: hearing grossly normal bilaterally and external ears normal Nose: external nose normal Face and sinus: normal facial exam Neck Neck: normal visual inspection, full ROM and no lymphadenopathy Thyroid: thyroid normal Chest Chest palpation & inspection: normal inspection of the chest Breast inspection: normal inspection of the breasts and normal inspection of the axillae Breast palpation: normal palpation of the breasts, normal palpation of the axillae and no axillary lymphadenopathy Resp Effort & Inspection: normal respiratory effort GI Inspection: normal to inspection and non-distended Palpation: soft, no hepatosplenomegaly and no guarding General: bladder normal to palpation External Female Exam: normal external appearance, normal appearance of the urethra and no lesions Urethra: normal appearance of the urethra and normal palpation Speculum Exam - Vagina: normal appearance of the vagina and normal vaginal discharge Speculum Exam - Cervix: normal appearance of the cervix, no cervical discharge, no lesions and nontender Bimanual Exam- Vagina & Uterus: normal bimanual exam, uterine size normal, bladder normal to palpation, No tender, uterine mobility normal, consistency normal, non-tender and no cervical motion tenderness Bimanual Exam- Adnexa, other: normal adnexae, no masses and non-tender Skin General: no rashes or lesions noted Neuro General: patient alert, moves all extremities and no focal motor deficits Extrem General: normal to inspection and no pedal edema Psych Appearance: grossly normal Mental Status: mental status grossly normal Affect: normal affect Speech and Movement: speech and movement normal Attitude: cooperative Office Procedures Endometrial Biopsy Endometrial Biopsy Test: Yes Not Applicable Consent Signed: Yes Time out checklist: patient tenaculum used: Yes dilator used: Yes Details: Cervix prepped with betadine and pipelle inserted into uterus without complication. Specimen obtained and sent to lab for analysis. All instruments removed from vagina without complications. Excellent hemostasis noted. Coding Level of Care Code Attention Bhanu Diagnoses Encounter for routine gynecological examination Z01.419 CPT Codes Endometrial Biopsy (28474) Assessment and Plan Assessment and Plan (1) Encounter for routine gynecological examination: Plan: Cervical cancer screening: no longer indicated EMB done today Breast cancer screening: mammogram ordered colonoscopy ordered other health maintenance examination reviewed and orders placed if needed. Encouraged maintenance of a healthy weight and active lifestyle and handout given. Annual exam handout including recommendations for good health guidelines, Calcium/vitamin D recommendations, and basic screening information given. Problem list up to date, see problem list details for any additional plan information. Follow up in one year for annual health maintenance exam or sooner if needed. Orders: Orders SCRN MAMM (CAD)W/JJ BILAT Today Z12.31 - Encounter for screening mammogram for malignant neoplasm of breast Endometrial Biopsy Today N95.0 - Postmenopausal bleeding, R93.89 - Abnormal findings on diagnostic imaging of other specified body structures Referrals General Surgery Z12.11 - Encounter for screening for malignant neoplasm of colon 01/25/25 0932 <Electronically signed by Kay Estes DO> Date _ Kay Felton DO Cosigner Signature: Date (if applicable) CC: ~ [facility] Work Phone: [facility] for referral (narrative)* Diagnostic Procedure Only (Routine) - Pending Review Specialty Diagnoses / Procedures Referred By Ti perez Referred To Contact BR IMAG[facility] Diagnoses Encounter for screening mammogram for malignant neoplasm of breast Procedures HARSHIL SCREENING SCREENING MAMMOGRAPHY BI 2-VIEW BREAST INC Hugo Mccormack MD [address] [place] [address] [facility] [address] [place] [address] Referral ID Status Reason Start Date Expiration Date Visits Requested Visits Authorized [id number] Pending Review Auto-Generat ed Referral 06/23/2023 1 1 [facility] for referral (narrative)* Diagnostic Procedure Only (Urgent) - Closed Specialty Diagnoses / Procedures Referred By Ti perez Referred To Contact XR IMAGING Diagnoses Acute bilateral low back pain without sciatica Procedures XR LUMBAR GENERAL 3V AP/LAT/L5-S1 RADEX SPINE LUMBOSACRAL 2/3 VIEWS Latisha Jansen PA-C [address] [place] [address] Xr Imaging Referral ID Status Reason Start Date Expiration Date V isits Requested Visits Authorized [id number] Closed Auto-Generate d Referral 12/13/2022 01/12/2024 1 1 [facility] for referral (narrative)* Diagnostic Procedure Only (Routine) - Closed Specialty Diagnoses / Procedures Referred By Ti t Referred To Contact BR IMAGING Diagnoses Encounter for screening mammogram for malignant neoplasm of breast Procedures HARSHIL SCREENING SCREENING MAMMOGRAPHY BI 2-VIEW BREAST INC Hugo Mccormack MD [address] [place] [address] [facility] [address] [place] [address] Referral ID Status Reason Start Date Expiration Date V isits Requested Visits Authorized [id number] Closed Auto-Generate d Referral 05/24/2022 06/23/2023 1 1 [facility] for referral (narrative)* Diagnostic Procedure Only (Urgent) - Closed Specialty Diagnoses / Procedures Referred By Contac t Referred To Contact XR IMAGING Diagnoses Rib pain on right side Procedures XR RIBS/CHEST 3V AP RIB/OBLS/CXR RIGHT RADEX RIBS UNI W/POSTEROANT CH MINIMUM 3 VIEWS Latisha Jansen PA-C [address] [place] [address] [place] [address] Referral ID Status Reason Start Date Expiration Date V isits Requested Visits Authorized [id number] Closed Auto-Generate d Referral 10/10/2023 11/08/2024 1 1 [facility] for referral (narrative)* Diagnostic Procedure Only (Urgent) - Closed Specialty Diagnoses / Procedures Referred By Contac t Referred To Contact XR IMAGING Diagnoses Rib pain on right side Procedures XR RIBS/CHEST 3V AP RIB/OBLS/CXR RIGHT RADEX RIBS UNI W/POSTEROANT CH MINIMUM 3 VIEWS Latisha Jansen PA-C [address] [place] [address] [place] [address] Referral ID Status Reason Start Date Expiration Date V isits Requested Visits Authorized [id number] Closed Auto-Generate d Referral 10/10/2023 11/08/2024 1 1 T [facility] for referral (narrative)* Diagnostic Procedure Only (Urgent) - Closed Specialty Diagnoses / Procedures Referred By Contac t Referred To Contact XR IMAGING Diagnoses Acute bilateral low back pain without sciatica Procedures XR LUMBAR GENERAL 3V AP/LAT/L5-S1 RADEX SPINE LUMBOSACRAL 2/3 VIEWS Latisha Jansen PA-C [address] [place] [address] [place] [address] Referral ID Status Reason Start Date Expiration Date V isits Requested Visits Authorized [id number] Closed Auto-Generate d Referral 12/13/2022 01/12/2024 1 1 [facility] for referral (narrative)* Diagnostic Procedure Only (Routine) - Closed Specialty Diagnoses / Procedures Referred By Ti t Referred To Contact XR IMAGING Diagnoses Impingement syndrome of left shoulder Procedures XR SHOULDER GENERAL 3V OR MORE AP/TRUE AP/OTHER LEFT RADEX SHOULDER COMPLETE MINIMUM 2 VIEWS Hugo Ro MD [address] [place] [address] [place] [address] Referral ID Status Reason Start Date Expiration Date V isits Requested Visits Authorized [id number] Closed Auto-Generate d Referral 12/10/2021 01/09/2023 1 1 [facility] for referral (narrative)* Outpatient Procedure (Routine) - New Request Specialty Diagnoses / Procedures Referred By Ti perez Referred To Contact [facility] Diagnoses Epigastric pain Procedures ECG COMPLETE ECG ROUTINE ECG W/LEAST 12 LDS W/I&R Hugo Ro MD [facility] [place] [address] [facility] [place] [address] [place] [address] Referral ID Status Reason Start Date Expiration Date Visits Requested Visits Authorized [id number] New Request Auto-Generat ed Referral 04/27/2025 1 1 T [facility] for visit Narrative* Diagnostic Procedure Only (Routine) - Closed Specialty Diagnoses / Procedures Referred By Ti perez Referred To Contact BR IMAGING Diagnoses Encounter for screening mammogram for malignant neoplasm of breast Procedures HARSHIL SCREENING SCREENING MAMMOGRAPHY BI 2-VIEW BREAST INC CAD Hugo Ro MD [address] [place] [address] [facility] [address] [place] [address] Referral ID Status Reason Start Date Expiration Date V isits Requested Visits Authorized [id number] Closed Auto-Generate d Referral 05/24/2022 06/23/2023 1 1 [facility] for visit Narrative* Diagnostic Procedure Only (Urgent) - Closed Specialty Diagnoses / Procedures Referred By Contac t Referred To Contact XR IMAGING Diagnoses Rib pain on right side Procedures XR RIBS/CHEST 3V AP RIB/OBLS/CXR RIGHT RADEX RIBS UNI W/POSTEROANT CH MINIMUM 3 VIEWS Latisha Jansen, PA-C [address] [place] [address] [place] [address] Referral ID Status Reason Start Date Expiration Date V isits Requested Visits Authorized [id number] Closed Auto-Generate d Referral 10/10/2023 11/08/2024 1 1 [facility] for visit Narrative* Diagnostic Procedure Only (Urgent) - Closed Specialty Diagnoses / Procedures Referred By Contac t Referred To Contact XR IMAGING Diagnoses Acute bilateral low back pain without sciatica Procedures XR LUMBAR GENERAL 3V AP/LAT/L5-S1 RADEX SPINE LUMBOSACRAL 2/3 VIEWS Latisha Jansen, PA-C [address] [place] [address] [place] [address] Referral ID Status Reason Start Date Expiration Date V isits Requested Visits Authorized [id number] Closed Auto-Generate d Referral 12/13/2022 01/12/2024 1 1 [facility] for visit Narrative* Diagnostic Procedure Only (Routine) - Closed Specialty Diagnoses / Procedures Referred By Contac t Referred To Contact XR IMAGING Diagnoses Impingement syndrome of left shoulder Procedures XR SHOULDER GENERAL 3V OR MORE AP/TRUE AP/OTHER LEFT RADEX SHOULDER COMPLETE MINIMUM 2 VIEWS Hugo Ro MD [address] [place] [address] [place] [address] Referral ID Status Reason Start Date Expiration Date V isits Requested Visits Authorized [id number] Closed Auto-Generate d Referral 12/10/2021 01/09/2023 1 1 [facility] for visit Narrative* Diagnostic Procedure Only (Routine) - Closed Specialty Diagnoses / Procedures Referred By Ti perez Referred To Contact XR IMAGING Diagnoses Acute pain of left knee Injury of left knee, initial encounter Procedures XR KNEE GENERAL 4V AP BOTH/PA BOTH/LAT/MERC LEFT RADIOLOGIC EXAM KNEE COMPLETE 4/MORE VIEWS Marivel Dash, REINFORCING METAL WORKER.YARN HAULER [address] [place] [address] Phone: tel: fax: [place] [phone] Referral ID Status Reason Start Date Expiration Date V isits Requested Visits Authorized [id number] Closed Auto-Generate d Referral 09/10/2024 10/10/2025 1 1 [facility] Family History No Family History Records Found Relationship Condition Age at Onset Recorded Date/T cori mother Malignant neoplasm of lung Unknown daughter Malignant neoplasm of lung Unknown father Malignant neoplasm of stomach Unknown Advance Directives No Advanced Directives Records Found Advance Directive Response Recorded Date/ Time Living Will No October 12, 2021 1:50pm Power of Pressure Tank Operator No October 12 1:50pm Documents on File Type Date Recorded 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 Advance Directive(s) Advance Directive(s) 06/09/2020 10:27 AM Advance Directive(s) 01/01/2019 10:28 AM Advance Directive(s) 12/08/2018 1:55 PM Advance Directive(s) 05/16/2017 6:47 AM Documents on File Type Date Recorded 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 Advance Directive(s) Advance Directive(s) 06/09/2020 10:27 AM Advance Directive(s) 01/01/2019 10:28 AM Advance Directive(s) 12/08/2018 1:55 PM Advance Directive(s) 05/16/2017 6:47 AM Reason for Referral Specialty Diagnoses / Procedures Referred By Ti perez Referred To Contact [facility] Diagnoses Impingement syndrome of left shoulder Procedures CONSULT TO PHYSICAL THERAPY PHYSICAL THERAPY EVALUATION HIGH COMPLEX 45 MINS Hugo Ro MD [address] [place] [address] [facility] [address] [place] [address] Referral ID Status Reason Start Date Expiration Date Visits Requested Visits Authorized [id number] Authorized Auto-Generat ed Referral 07/11/2021 07/10/2022 30 30 Specialty Diagnoses / Procedures Referred By Contac t Referred To Contact [facility]AGING Diagnoses Impingement syndrome of left shoulder Procedures XR SHOULDER GENERAL 3V OR MORE AP/TRUE AP/OTHER LEFT RADEX SHOULDER COMPLETE MINIMUM 2 VIEWS Hugo Ro MD [address] [place] [address] Xr Imaging Referral ID Status Reason Start Date Expiration Date V isits Requested Visits Authorized [id number] Closed Auto-Generate d Referral 12/10/2021 01/09/2023 1 1 Specialty Diagnoses / Procedures Referred By Contac t Referred To Contact [facility] Diagnoses Impingement syndrome of left shoulder Procedures PT REHAB FOLLOW UP ORDER THERAPEUTIC EXERCISES RE, EA 15 MIN. Thaddeus Shaw, PT [facility] [address] [place] [address] Referral ID Status Reason Start Date Expiration Date Visits Requested Visits Authorized [id number] Pending Review PCP Requested Referral Auto-Generate d Referral 2021 03/17/2022 1 1 Referral ID Status Reason Start Date Expiration Date Visits Requested Visits Authorized [id number] Pending Review PCP Requested Referral Auto-Generate d Referral 01/14/2022 04/14/2022 1 1 Health Concerns Infection Onset Date Last Indicated Resolved Time COVID-19 Rule-Out 06/29/2022 06/29/2022 Infection Onset Date Last Indicated Resolved Time COVID-19 Rule-Out 06/29/2022 06/29/2022 06/30/2022 2:30 AM EST Infection Onset Date Last Indicated Resolved Time COVID-19 Rule-Out 09/21/2022 09/21/2022 Infection Onset Date Last Indicated Resolved Time COVID-19 Rule-Out 09/21/2022 09/21/2022 09/22/2022 1:07 AM EDT Chief Complaint and Reason for Visit Chief Complaint Admit Date Annual (ACID LOADER) January 25, 2025 8:54 am COLONOSCOPY February 01, 2025 9:43 am Reason for Visit Admit Date Encounter for routine gynecological exam ination January 25, 2025 8:54am Chief Complaint UI/PT HAS RX DESIRAE Chief Complaint UI/PT HAS RX DESIRAE GROSS HEMATURIA Chief Complaint UI/PT HAS RX DESIRAE GROSS HEMATURIA PAP TITRATION Chief Complaint UI/PT HAS RX DESIRAE GROSS HEMATURIA PAP TITRATION DESIRAE, AUTO CPAP REPAP *DEVICE TAGGED Chief Complaint Admit Date Annual (ACID LOADER) January 25, 2025 8:54 am Summary Purpose Additional Source Comments Goals (unrecognized section and content) Goals may be documented in a n alternate sectionGoals may be documented in an alternate sectionGoals may be documented in an alternate sectionGoals may be documented in an alternate sectionGoals may be documented in an alternate sectionGoals may be documented in an alternate sectionGoals may be documented in an alternate sectionGoals may be documented in an alternate section Source Comments (unrecognize d section and content) In the event this informatio n is protected by the Federal Confidentiality of Alcohol and Drug Abuse Patient Records regulations: The Federal rules restrict any use of the information to criminally investigate or prosecute any alcohol or drug abuse patient.[facility] the event this information is protected by the Federal Confidentiality of Alcohol and Drug Abuse Patient Records regulations: The Federal rules restrict any use of the information to criminally investigate or prosecute any alcohol or drug abuse patient.[facility] HospitalIn the event this information is protected by the Federal Confidentiality of Alcohol and Drug Abuse Patient Records regulations: The Federal rules restrict any use of the information to criminally investigate or prosecute any alcohol or drug abuse patient.[facility] HospitalIn the event this information is protected by the Federal Confidentiality of Alcohol and Drug Abuse Patient Records regulations: The Federal rules restrict any use of the information to criminally investigate or prosecute any alcohol or drug abuse patient.[facility] HospitalIn the event this information is protected by the Federal Confidentiality of Alcohol and Drug Abuse Patient Records regulations: The Federal rules restrict any use of the information to criminally investigate or prosecute any alcohol or drug abuse patient.[facility] HospitalIn the event this information is protected by the Federal Confidentiality of Alcohol and Drug Abuse Patient Records regulations: The Federal rules restrict any use of the information to criminally investigate or prosecute any alcohol or drug abuse patient.[facility] HospitalIn the event this information is protected by the Federal Confidentiality of Alcohol and Drug Abuse Patient Records regulations: The Federal rules restrict any use of the information to criminally investigate or prosecute any alcohol or drug abuse patient.[facility] HospitalIn the event this information is protected by the Federal Confidentiality of Alcohol and Drug Abuse Patient Records regulations: The Federal rules restrict any use of the information to criminally investigate or prosecute any alcohol or drug abuse patient.[facility] HospitalIn the event this information is protected by the Federal Confidentiality of Alcohol and Drug Abuse Patient Records regulations: The Federal rules restrict any use of the information to criminally investigate or prosecute any alcohol or drug abuse patient.[facility] HospitalIn the event this information is protected by the Federal Confidentiality of Alcohol and Drug Abuse Patient Records regulations: The Federal rules restrict any use of the information to criminally investigate or prosecute any alcohol or drug abuse patient.[facility] HospitalIn the event this information is protected by the Federal Confidentiality of Alcohol and Drug Abuse Patient Records regulations: The Federal rules restrict any use of the information to criminally investigate or prosecute any alcohol or drug abuse patient.[facility] HospitalIn the event this information is protected by the Federal Confidentiality of Alcohol and Drug Abuse Patient Records regulations: The Federal rules restrict any use of the information to criminally investigate or prosecute any alcohol or drug abuse patient.[facility] HospitalIn the event this information is protected by the Federal Confidentiality of Alcohol and Drug Abuse Patient Records regulations: The Federal rules restrict any use of the information to criminally investigate or prosecute any alcohol or drug abuse patient.[facility] HospitalIn the event this information is protected by the Federal Confidentiality of Alcohol and Drug Abuse Patient Records regulations: The Federal rules restrict any use of the information to criminally investigate or prosecute any alcohol or drug abuse patient.[facility] HospitalIn the event this information is protected by the Federal Confidentiality of Alcohol and Drug Abuse Patient Records regulations: The Federal rules restrict any use of the information to criminally investigate or prosecute any alcohol or drug abuse patient.[facility] HospitalIn the event this information is protected by the Federal Confidentiality of Alcohol and Drug Abuse Patient Records regulations: The Federal rules restrict any use of the information to criminally investigate or prosecute any alcohol or drug abuse patient.[facility] HospitalIn the event this information is protected by the Federal Confidentiality of Alcohol and Drug Abuse Patient Records regulations: The Federal rules restrict any use of the information to criminally investigate or prosecute any alcohol or drug abuse patient.[facility] HospitalIn the event this information is protected by the Federal Confidentiality of Alcohol and Drug Abuse Patient Records regulations: The Federal rules restrict any use of the information to criminally investigate or prosecute any alcohol or drug abuse patient.[facility] HospitalIn the event this information is protected by the Federal Confidentiality of Alcohol and Drug Abuse Patient Records regulations: The Federal rules restrict any use of the information to criminally investigate or prosecute any alcohol or drug abuse patient.[facility] HospitalIn the event this information is protected by the Federal Confidentiality of Alcohol and Drug Abuse Patient Records regulations: The Federal rules restrict any use of the information to criminally investigate or prosecute any alcohol or drug abuse patient.[facility] HospitalIn the event this information is protected by the Federal Confidentiality of Alcohol and Drug Abuse Patient Records regulations: The Federal rules restrict any use of the information to criminally investigate or prosecute any alcohol or drug abuse patient.[facility] HospitalIn the event this information is protected by the Federal Confidentiality of Alcohol and Drug Abuse Patient Records regulations: The Federal rules restrict any use of the information to criminally investigate or prosecute any alcohol or drug abuse patient.[facility] HospitalIn the event this information is protected by the Federal Confidentiality of Alcohol and Drug Abuse Patient Records regulations: The Federal rules restrict any use of the information to criminally investigate or prosecute any alcohol or drug abuse patient.[facility] HospitalIn the event this information is protected by the Federal Confidentiality of Alcohol and Drug Abuse Patient Records regulations: The Federal rules restrict any use of the information to criminally investigate or prosecute any alcohol or drug abuse patient.[facility] HospitalIn the event this information is protected by the Federal Confidentiality of Alcohol and Drug Abuse Patient Records regulations: The Federal rules restrict any use of the information to criminally investigate or prosecute any alcohol or drug abuse patient.[facility] HospitalIn the event this information is protected by the Federal Confidentiality of Alcohol and Drug Abuse Patient Records regulations: The Federal rules restrict any use of the information to criminally investigate or prosecute any alcohol or drug abuse patient.[facility] HospitalIn the event this information is protected by the Federal Confidentiality of Alcohol and Drug Abuse Patient Records regulations: The Federal rules restrict any use of the information to criminally investigate or prosecute any alcohol or drug abuse patient.[facility] HospitalIn the event this information is protected by the Federal Confidentiality of Alcohol and Drug Abuse Patient Records regulations: The Federal rules restrict any use of the information to criminally investigate or prosecute any alcohol or drug abuse patient.[facility] HospitalIn the event this information is protected by the Federal Confidentiality of Alcohol and Drug Abuse Patient Records regulations: The Federal rules restrict any use of the information to criminally investigate or prosecute any alcohol or drug abuse patient.[facility] HospitalIn the event this information is protected by the Federal Confidentiality of Alcohol and Drug Abuse Patient Records regulations: The Federal rules restrict any use of the information to criminally investigate or prosecute any alcohol or drug abuse patient.[facility] HospitalIn the event this information is protected by the Federal Confidentiality of Alcohol and Drug Abuse Patient Records regulations: The Federal rules restrict any use of the information to criminally investigate or prosecute any alcohol or drug abuse patient.[facility] HospitalIn the event this information is protected by the Federal Confidentiality of Alcohol and Drug Abuse Patient Records regulations: The Federal rules restrict any use of the information to criminally investigate or prosecute any alcohol or drug abuse patient.[facility] HospitalIn the event this information is protected by the Federal Confidentiality of Alcohol and Drug Abuse Patient Records regulations: The Federal rules restrict any use of the information to criminally investigate or prosecute any alcohol or drug abuse patient.[facility] HospitalIn the event this information is protected by the Federal Confidentiality of Alcohol and Drug Abuse Patient Records regulations: The Federal rules restrict any use of the information to criminally investigate or prosecute any alcohol or drug abuse patient.[facility] HospitalIn the event this information is protected by the Federal Confidentiality of Alcohol and Drug Abuse Patient Records regulations: The Federal rules restrict any use of the information to criminally investigate or prosecute any alcohol or drug abuse patient.[facility] HospitalIn the event this information is protected by the Federal Confidentiality of Alcohol and Drug Abuse Patient Records regulations: The Federal rules restrict any use of the information to criminally investigate or prosecute any alcohol or drug abuse patient.[facility] HospitalIn the event this information is protected by the Federal Confidentiality of Alcohol and Drug Abuse Patient Records regulations: The Federal rules restrict any use of the information to criminally investigate or prosecute any alcohol or drug abuse patient.[facility] HospitalIn the event this information is protected by the Federal Confidentiality of Alcohol and Drug Abuse Patient Records regulations: The Federal rules restrict any use of the information to criminally investigate or prosecute any alcohol or drug abuse patient.[facility] HospitalIn the event this information is protected by the Federal Confidentiality of Alcohol and Drug Abuse Patient Records regulations: The Federal rules restrict any use of the information to criminally investigate or prosecute any alcohol or drug abuse patient.[facility] HospitalIn the event this information is protected by the Federal Confidentiality of Alcohol and Drug Abuse Patient Records regulations: The Federal rules restrict any use of the information to criminally investigate or prosecute any alcohol or drug abuse patient.[facility] HospitalIn the event this information is protected by the Federal Confidentiality of Alcohol and Drug Abuse Patient Records regulations: The Federal rules restrict any use of the information to criminally investigate or prosecute any alcohol or drug abuse patient.[facility] HospitalIn the event this information is protected by the Federal Confidentiality of Alcohol and Drug Abuse Patient Records regulations: The Federal rules restrict any use of the information to criminally investigate or prosecute any alcohol or drug abuse patient.[facility] HospitalIn the event this information is protected by the Federal Confidentiality of Alcohol and Drug Abuse Patient Records regulations: The Federal rules restrict any use of the information to criminally investigate or prosecute any alcohol or drug abuse patient.[facility] HospitalIn the event this information is protected by the Federal Confidentiality of Alcohol and Drug Abuse Patient Records regulations: The Federal rules restrict any use of the information to criminally investigate or prosecute any alcohol or drug abuse patient.[facility] HospitalIn the event this information is protected by the Federal Confidentiality of Alcohol and Drug Abuse Patient Records regulations: The Federal rules restrict any use of the information to criminally investigate or prosecute any alcohol or drug abuse patient.[facility] Reason for Visit (unrecogniz ed section and content) Reason Comments PT Discharge Specialty Diagnoses / Procedures Referred By Contac t Referred To Contact [facility] Diagnoses Acute pain of left knee Injury of left knee, initial encounter Procedures CONSULT TO PHYSICAL THERAPY PHYSICAL THERAPY EVALUATION HIGH COMPLEX 45 MINS Marivel Dash, 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 WORKER.YARN HAULER [address] [place] [address] Phone: tel: fax: [facility] [address] [place] [phone] Referral ID Status Reason Start Date Expiration Date Visits Requested Visits Authorized [id number] Authorized Auto-Generat ed Referral 07/11/2024 07/10/2025 20 20 Reason Comments PT Progress Note Specialty Diagnoses / Procedures Referred By Contac t Referred To Contact [facility] Diagnoses Impingement syndrome of left shoulder Procedures CONSULT TO PHYSICAL THERAPY PHYSICAL THERAPY EVALUATION HIGH COMPLEX 45 MINS Hugo Ro MD [address] [place] [address] [facility] [address] [address] Referral ID Status Reason Start Date Expiration Date Visits Requested Visits Authorized [id number] Authorized Auto-Generat ed Referral 07/11/2021 07/10/2022 30 30 Reason Onset Date Comments Refill Request 10/30/2021 Reason Comments F/U 6 months Reason Comments Results Reason Comments PT Eval Reason Comments Physical Therapy Specialty Diagnoses / Procedures Referred By Contac t Referred To Contact [facility] Diagnoses Impingement syndrome of left shoulder Procedures CONSULT TO PHYSICAL THERAPY PHYSICAL THERAPY EVALUATION HIGH COMPLEX 45 MINS Hugo Ro MD [address] [place] [address] [facility] [address] [address] Reason Onset Date Comments Refill Request 01/05/2022 Reason Comments Refill Request Reason Comments Medicare Wellness Exam Reason Comments Headache Pt reported fatigue x2 days. Reason Comments Head Congestion cough x 4 days Reason Comments UTI Lower back pain, malu nful urination x 4 days Reason Comments Follow-up - Sleep study Reason Comments Orders Reason Onset Date Comments Refill Request 04/05/2023 Reason Onset Date Comments Population Health Navigation Outreach 06/09/2023 Medication adherence Reason Onset Date Comments Population Health Navigation Outreach 06/10/2023 Medication adherence Reason Comments Rib Injury right x 4 days, exte nded reaching into box Reason Onset Date Comments Refill Request 01/05/2024 Reason Comments Follow Up Reason Onset Date Comments Population Health Navigation Outreach 01/20/2024 [place] [facility] Adherence Reason Comments Cough Nausea, SOB, cough, exposure x 6 days Reason Comments Follow Up seen in the [facility] care for nausea, c/o nausea, cough ,drng, chills,weak,h/a and sob sicne April Reason Comments Recheck 2 week follow up-tod ay woke up with headache Reason Comments Nausea & Vomiting diarrhea x 1 day Reason Comments ER F/U Reason Comments Medicare Wellness Exam Knee Pain LT x 1 week UTI Urinary frequency/pe lvic pressure x 1 month Reason Comments PT Eval Care Teams (unrecognized sec tion and content) Oyster Washer Relationship Specialty Start Date End Date Hugo Ro MD [address] [place] [address] PCP - General Internal Medicine 04/22/16 Oyster Washer Relationship Specialty Start Date End Date Hugo Ro MD [address] [place] [address] PCP - General Internal Medicine 04/22/16 Oyster Washer Relationship Specialty Start Date End Date Hugo Ro MD [address] [place] [address] PCP - General Internal Medicine 04/22/16 Oyster Washer Relationship Specialty Start Date End Date Hguo Ro MD [address] [place] [address] PCP - General Internal Medicine 04/22/16 Oyster Washer Relationship Specialty Start Date End Date Hugo Ro MD [address] [place] [address] PCP - General Internal Medicine 04/22/16 Oyster Washer Relationship Specialty Start Date End Date Hugo Ro MD [address] [place] [address] PCP - General Internal Medicine 04/22/16 Oyster Washer Relationship Specialty Start Date End Date Hugo Ro MD [address] [facility] [place] [address] PCP - General Internal Medicine 04/22/16 Oyster Washer Relationship Specialty Start Date End Date Hugo Ro MD [address] [facility] [place] [address] PCP - General Internal Medicine 04/22/16 Oyster Washer Relationship Specialty Start Date End Date Hugo Ro MD [address] [place] [address] PCP - General Internal Medicine 04/22/16 Oyster Washer Relationship Specialty Start Date End Date Hugo Ro MD [address] [facility] [place] [address] PCP - General Internal Medicine 04/22/16 Oyster Washer Relationship Specialty Start Date End Date Hugo Ro MD [address] [place] [address] PCP - General Internal Medicine 04/22/16 Oyster Washer Relationship Specialty Start Date End Date Hugo Ro MD [address] [place] [address] PCP - General Internal Medicine 04/22/16 Oyster Washer Relationship Specialty Start Date End Date Hugo Ro MD [address] [place] [address] PCP - General Internal Medicine 04/22/16 Team Status: Active Member Role Status Dates uLz Abdi HOSE TENDER, HOSE TENDER-C Family Provider Active Dr. Hugo Ro MD Primary Care Provider Active Team Status: Active Member Role Status Dates Dr. Hugo Ro MD Primary Care Provider Active Dr. Diane Pacheco MD Attending Provider, Referring P rovider Active Team Status: Inactive Member Role Status Dates Dr. Hugo Ro MD Primary Care Provider Active Marivel Older HOSE TENDER, HOSE TENDER-C Attending Provider, Referring Provi tea Active Team Status: Inactive Member Role Status Dates Dr. Hugo Ro MD Primary Care Provider Active Dr. Diane Pacheco MD Attending Provider, Referring P rovider Active Oyster Washer Relationship Specialty Start Date End Date Hugo Ro MD [address] [place] [address] PCP - General Internal Medicine 04/22/16 Team Status: Inactive Member Role Status Dates Dr. Hugo Ro MD Primary Care Provider, Atten ding Provider Active Team Status: Inactive Member Role Status Dates Dr. Hugo Ro MD Primary Care Provider Active Dr. Diane Pacheco MD Attending Provider Active Oyster Washer Relationship Specialty Start Date End Date Hugo Ro MD [address] [place] [address] PCP - General Internal Medicine 04/22/16 Oyster Washer Relationship Specialty Start Date End Date Hugo Ro MD [address] [place] [address] PCP - General Internal Medicine 04/22/16 Oyster Washer Relationship Specialty Start Date End Date Hugo Ro MD [address] [place] [address] PCP - General Internal Medicine 04/22/16 Oyster Washer Relationship Specialty Start Date End Date Hugo Ro MD [address] [place] [address] PCP - General Internal Medicine 04/22/16 Oyster Washer Relationship Specialty Start Date End Date Hugo Ro MD [address] [place] [address] PCP - General Internal Medicine 04/22/16 Oyster Washer Relationship Specialty Start Date End Date Hugo Ro MD [address] [place] [address] PCP - General Internal Medicine 04/22/16 Oyster Washer Relationship Specialty Start Date End Date Hugo Ro MD [address] [facility] [place] [address] PCP - General Internal Medicine 04/22/16 Oyster Washer Relationship Specialty Start Date End Date Hugo Ro MD [address] [facility] [place] [address] PCP - General Internal Medicine 04/22/16 Oyster Washer Relationship Specialty Start Date End Date Hugo Ro MD [address] [facility] [place] [address] PCP - General Internal Medicine 04/22/16 Oyster Washer Relationship Specialty Start Date End Date Hugo Ro MD [address] [facility] [place] [address] PCP - General Internal Medicine 04/22/16 Oyster Washer Relationship Specialty Start Date End Date Hugo Ro MD [address] [facility] [place] [address] PCP - General Internal Medicine 04/22/16 Oyster Washer Relationship Specialty Start Date End Date Hugo Ro MD [address] [facility] [place] [address] PCP - General Internal Medicine 04/22/16 Oyster Washer Relationship Specialty Start Date End Date Hugo Ro MD [address] [place] [address] PCP - General Internal Medicine 04/22/16 Oyster Washer Relationship Specialty Start Date End Date Hugo Ro MD [address] [place] [address] PCP - General Internal Medicine 04/22/16 Oyster Washer Relationship Specialty Start Date End Date Hugo Ro MD [address] [facility] [place] [address] PCP - General Internal Medicine 04/22/16 Marivel Dash, REINFORCING METAL WORKER.YARN HAULER [address] [facility] [place] [address] Electronic Plotting System Operator Internal Medicine 06/18/24 Oyster Washer Relationship Specialty Start Date End Date Hugo Ro MD [address] [facility] [place] [address] PCP - General Internal Medicine 04/22/16 Marivel Dash, REINFORCING METAL WORKER.YARN HAULER [address] [facility] [place] [address] Electronic Plotting System Operator Internal Medicine 06/18/24 Oyster Washer Relationship Specialty Start Date End Date Hugo Ro MD [address] [place] [address] PCP - General Internal Medicine 04/22/16 Marivel Dash, REINFORCING METAL WORKER.YARN HAULER [address] [facility] [place] [address] Electronic Plotting System Operator Internal Medicine 06/18/24 Oyster Washer Relationship Specialty Start Date End Date Hugo Ro MD [address] [place], [place] [id number] PCP - General Internal Medicine 04/22/16 Marivel Dash, REINFORCING METAL WORKER.YARN HAULER [address] [place] [address] [facility] Internal Medicine 06/18/24 Oyster Washer Relationship Specialty Start Date End Date Hugo Ro MD [address] [place], [place] [id number] PCP - General Internal Medicine 04/22/16 Marivel Dash, REINFORCING METAL WORKER.YARN HAULER [address] [place] [address] [facility] Internal Medicine 06/18/24 Oyster Washer Relationship Specialty Start Date End Date Hugo Ro MD [address] [place] [address] PCP - General Internal Medicine 04/22/16 Marivel Dash, REINFORCING METAL WORKER.YARN HAULER [address] [place] [address] [facility] Internal Medicine 06/18/24 Oyster Washer Relationship Specialty Start Date End Date Hugo Ro MD [address] [place], [place] [id number] PCP - General Internal Medicine 04/22/16 Marivel Dash, REINFORCING METAL WORKER.YARN HAULER [address] [place] [address] [facility] Internal Medicine 06/18/24 Team Status: Active Member Role/Relationship Status Dates Dr. Hugo Ro MD Primary Care Provider Active Team Status: Inactive Member Role/Relationship Status Dates Dr. Hugo Ro MD Primary Care Provider Active Start: January 25, 2025 End: January 25, 2025 Dr. Hugo Ro MD Referring Provider Active Start: January 25, 2025 End: January 25, 2025 Dr. Kay Felton DO Attending Provider Activ e Start: January 25, 2025 End: January 25, 2025 Team Status: Inactive Member Role/Relationship Status Dates Dr. Hugo Ro MD Primary Care Provider Active Start: January 08, 2025 Dr. Diane Pacheco MD Attending Provider Active Start: January 08, 2025 Team Status: Inactive Member Role/Relationship Status Dates Dr. Hugo oR MD Primary Care Provider Active Start: January 25, 2025 End: January 25, 2025 Dr. Hugo Ro MD Referring Provider Active Start: January 25, 2025 End: January 25, 2025 Dr. Kay Felton DO Attending Provider Activ e Start: January 25, 2025 End: January 25, 2025 Team Status: Inactive Member Role/Relationship Status Dates Dr. Hugo Ro MD Primary Care Provider Active Start: January 25, 2025 End: January 25, 2025 Dr. Kay Felton DO Attending Provider Activ e Start: January 25, 2025 End: January 25, 2025 Dr. Kay Felton DO Referring Provider Activ e Start: January 25, 2025 End: January 25, 2025 Team Status: Inactive Member Role/Relationship Status Dates Dr. Hugo Ro MD Primary Care Provider Active Start: February 01, 2025 End: February 01, 2025 Dr. Crys Zapien MD Attending Provider Active Start: February 01, 2025 End: February 01, 2025 Dr. Kay Felton DO Referring Provider Activ e Start: February 01, 2025 End: February 01, 2025 INFORMATION SOURCE (unrecogn ized section and content) DATE CREATED AUTHOR 11/14/2024 [facility] DATE CREATED AUTHOR AUTHOR'S ORGANIZ ATION 02/19/2025 [facility] FOR RECORDS PERTAINING TO PATIENTS WHO ARE OR HAVE BEEN ENROLLED IN A CHEMICAL DEPENDENCY/SUBSTANCEABUSE PROGRAM, SOME INFORMATION MAY BE OMITTED. This clinical summary was aggregated from multiple sources. Caution should be exercised in using it in the provision of clinical care. This summary normalizes information from multiple sources, and as a consequence, information in this document may materially change the coding, format and clinical context of patient data. In addition, data may be omitted in some cases. CLINICAL DECISIONS SHOULD BE BASED ON THE PRIMARY CLINICAL RECORDS. [employer] [facility]. provides no warranty or guarantee of the accuracy or completeness of information in this document.
[2025-02-20] MEDS: Lactated Ringers 1,000 ML 15 ML IV (07:06)
--- NOTE | 2025-02-20 07:17 | HP.PCM_ITS ---
History and Physical Date of Admission: 02/20/25 Date of Service: 02/01/25 MR#: [id number] Acct: [id number] Name: EDUARDO ARITA Rep #: [id number] : 1950 Provider: Dr. Crys Zapien MD Age/Sex: 74/F Location: [facility] Status: Signed Intake Vital Signs 01/25/2509:01 02/01/2510:20 Height 4 ft 9 in 4 ft 9 in Weight: 148 lb 4 oz 149 lb BMI 32.1 32.2 BP 127/81 H 130/56 H Blood Pressure Location Rt brachial Position Sitting Respiration 16 Intake Visit Reasons: COLONOSCOPY Chief Complaint: c-scope Extraction Supervisor Required: No Is patient in pain?: Yes (generalized abd pain) Allergies No Known Allergies Allergy (Verified 02/01/25 10:21) Medications ?Medication ?Instructions ?Recorded ?Confirmed ?Type amlodipine 10 mg tablet 10 mg PO DAILY 10/07/21 02/01/25 History paroxetine HCl 40 mg tablet (Paxil) 40 mg PO DAILY 10/07/21 02/01/25 History atorvastatin 10 mg tablet 10 mg PO QHS 10/08/21 02/01/25 History cholecalciferol (vitamin D3) 50 50 mcg PO DAILY 10/08/21 02/01/25 Histor y mcg (2,000 unit) capsule multivitamin 1 tab PO DAILY 10/08/21 02/01/25 History omeprazole 40 mg capsule,delayed 40 mg PO DAILY 10/08/21 02/01/25 History release osteo biflex 1 tab PO DAILY 10/08/21 02/01/25 History vibegron 75 mg tablet (Gemtesa) 75 mg PO DAILY 10/08/21 02/01/25 History vitamin E 200 unit capsule 200 unit PO DAILY 10/08/21 02/01/25 Hist ory Have you fallen in the past year?: No PFSH Medical History (Updated 02/02/25 @ 11:[address] Crys Zapien MD) Generalized abdominal pain Genetic testing Status post hysteroscopy Wears glasses Depression Anxiety Arthritis Bladder disease High cholesterol Gastric reflux Shortness of breath on exertion Former smoker CPAP (continuous positive airway pressure) dependence Hypertension Surgical History S/P dilation and curettage (~10/14/21) History of Family History Mother Lung cancerDaughter Lung cancerFather Stomach cancer Social History Smoking Status: Former smoker alcohol intake: current details: occasionally substance use type: does not use caffeine: Yes what type of physical activity do you participate in: none seatbelt use: always do you feel safe at home: Yes additional social history: HPI HPI HPI: 74-year-old female presents for colonoscopy due to a positive fecal occult blood also abnormal CT scan which showed a right inguinal hernia. Patient had a previous x 2 and does complain of pain in the lower aspect of the C- section scar on occasion. Patient was unaware that there is hernia at that location. Patient's last colonoscopy was at [facility] [place] had a polyp at that time patient is unsure exactly the timing of the colonoscopy. Patient states her stools are dark brown does occasionally have some constipation issues but has bowel movements daily does not see any blood. Patient denies any abdominal pain or nausea or vomiting. Patient had CT abdomen pelvis when she went to the ER showed a right renal hernia which has been there in previous CTs upon my read. Next about 3 cm in size. ROS General General: No weight change, appetite, fatigue, colon cancer or breast cancer HEENT HEENT: No difficulty swallowing, eye injury, eye surgery, swollen glands or hoarseness Endo Endocrine: No thyroid disease, diabetes mellitus, thyroid cancer, Hair loss, heat intolerance or cold intolerance Skin Skin: Yes changing moles; No rash Musc Musculoskeletal: Yes back problems and arthritis; No rheumatoid arthritis, gout or joint pain Cardio Cardiovascular: No murmur, pacemaker, heart disease, atrial fibrillation, high blood pressure, heart attack, heart stent, palpitations, shortness of breath with exertion or chest pain Psych Psychiatric: No depression, anxiety or hearing voices Resp Respiratory: No shortness of breath, Yes sleep apnea, No cough, No COPD, No asthma, No emphysema and No wheezing Gastro Gastrointestinal: No abdominal pain, No nausea or vomiting, No diarrhea, Yes constipation, No blood in stool, No acid reflux, No hemorrhoids, Yes ulcers, No gallbladder problem and No black,tarry stools Chay Hematologic: No blood thinners, No blood disorders, No bleeding, No anemia and No blood clots Neuro Neurologic: No numbness and No tingling Exam Const General: cooperative, healthy appearing, comfortable and no acute distress [facility] Head: normocephalic and atraumatic Neck Neck: supple Resp Effort & Inspection: normal respiratory effort Cardio Rate: regular rate GI Inspection: non-distended Palpation: soft, hernia other (Inguinal hernia seen on CT with about 3 cm neck.) and tender (At area of right inguinal hernia, mild) Other: Right inguinal hernia difficult to discretely appreciate on exam, tender in that area Skin General: no rashes or lesions noted Neuro General: CN's II-XI intact bilaterally Extrem General: normal to inspection Psych Mental Status: mental status grossly normal Attitude: cooperative Assessment and Plan Assessment and Plan (1) Fecal occult blood test positive: Status: Acute (2) Hx of colonic polyp: Status: Acute (3) Hernia, inguinal, right: Status: Inactive Plan Will plan to do a colonoscopy due to the fecal occult blood diagnosis will either be screening due to history depending on her last colonoscopy was once we obtain the records or diagnostic due to the positive fecal occult. Discussed with patient that the pain that she feels at the bottom of her incision is likely due to her inguinal hernia. This is easily reducible as it does have a larger neck. Discussed with patient that if starts to have more issues with that would recommend repair at that time. Patient will let us know if she would like to schedule. I have discussed the above with the patient. I have offered the patient colonoscopy for evaluation. I have explained the risks/benefits of the procedure and described the procedure. I have discussed the risks with the patient, including but not limited to: infection, bleeding, perforation of the GI tract requiring emergency surgery, inability to complete the procedure, injury to any internal organs, complications of anesthesia, etc. - the patient understands and agrees to proceed. I have answered all the patient's questions to the patient's satisfaction and the patient has no further questions. The patient has been given instructions for the colon cleansing preparation. 1 day clears MiraLAX Dulcolax Crys Zapien M.D. Pager: [phone] [facility] [address] [place] [address], [facility], [address] [place] [address] Office: [phone] Coding Level of Care Code Off vis,new,level 3 Diagnoses Fecal occult blood test positive R19.5 Hx of colonic polyp Z86.0100 Hernia, inguinal, right K40.90 Clinical Quality Measures Falls Risk Screening/Assistive Devices Have you fallen in the past year?: No 02/02/25 1109 <Electronically signed by Crys Zapien MD> Date Crys Zapien MD
--- NOTE | 2025-02-20 07:26 | PRE.ANES_ITS ---
ASA Classification* ASA Classification ASA Classification: 2 Assessment & Plan Anesthesia* Anesthesia Assessment Anesthesia Assessment: Discussed sedation and/or anesthesia options, risks, benefits, and alternatives with patient/parents/legal guardian/POA. Questions invited. The patient/parents/legal guardian/POA seems to understand and agrees to proceed with anesthesia plan. Reviewed the physical assessment, medical history, allergy history and patient home medications list prior to surgery/procedure/anesthetic and documented any changes. Performed airway and anesthesia risk assessments. Anesthesia Type Anesthesia Type: MAC History Source History Obtained from:: Patient and Chart Anesthesia Focused Assessment* Temperature: 97.3 F Pulse Rate: 83 Blood Pressure: 104/61 Respiratory Rate: 18 Pulse Ox: 99 Oxygen Delivery Method: Room Air Airway Assessment Mouth opens: >3 cm Mallampati Score: II Teeth Condition: Intact and Missing Neck Range of motion (ROM): Limited ROM Labs Anesthesia Preop lab: CBC WBC 8.5 K/mm3 (4.4-11.0) 08/13/24 21:08/13/24 RBC 4.20 M/mm3 (4.2-5.4) 08/13/24 21:08/13/24 Hgb 12.5 g/dL (12.0-15.0) 08/13/24:08/13/24 Hct 35.9 % (37-47) L 08/13/24 21:25 08/13/24 Plt Count 205 K/mm3 (150-450) 08/13/24 21:25 08/13/24 CHEMISTRY Potassium 3.5 mmol/L (3.5-5.1) 08/13/24:25 08/13/24 Sodium 140 mmol/L (136-145) 08/13/24 21:25 08/13/24 BUN 23 mg/dL (7-18) H 08/13/24:25 08/13/24 Creatinine 0.89 mg/dL (0.55-1.02) 08/13/24:25 08/13/24 Glucose 100 mg/dL (74-106) 08/13/24 21:25 08/13/24 COAG Pre-Assessment Diagnosis/Proposed Procedure Planned Operative Procedure(s): COLONOSCOPY Anesthesia History 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 When Was Last Pacemaker Check QUESTION #4 FULL TEXT: You/Your Family Experience fever (hyperthermia) with Anesthesia Last Oral Intake Last Oral intake: Last Oral Intake NPO since 22:00 02/20/25 06:59 Meds taken in AM with sips of Yes 02/20/25 06:59 water? Meds patient instructed to take am of surgery PONV PONV - certified shorthand reporter: PONV - certified shorthand reporter Female Yes 02/15/25 10:12 HX of Motion Sickness No 02/15/25 10:12 HX of N/V After Surgery No 02/15/25 10:12 Non-Smoker Yes 02/15/25 10:12 Duration of Surgery greater No 02/15/25 10:12 than 60 minutes Number of Risk Factors 2 02/15/25 10:12 PONV Score Moderate Risk 02/15/25 10:12 Height & Weight Height & Weight: Anesthesia: Height & Weight Height 4 ft 9 in 02/20/25 06:59 Weight: 66 kg 02/20/25 06:59 Body Mass Index (BMI) 31.4 02/20/25 06:59 Respiratory Assessment Respiratory Assessment - certified shorthand reporter: Respiratory Tract Infection Hx - certified shorthand reporter Hx Respiratory Tract Infection No 02/15/25 10:12 STOP Sleep Apnea STOP Sleep Apnea - certified shorthand reporter: STOP Sleep Apnea - certified shorthand reporter Hx Hypertension Yes 02/15/25 10:12 Hx Sleep Apnea Yes 02/15/25 10:12 CPAP Yes: WAS NON COMPLIANT, 02/15/25 10:12 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 Has anyone observed you stop breathing during sleep? STOP Results Positive 02/15/25 10:12 QUESTION #5 FULL TEXT : Do you snore loudly (louder than talking or can be heard through closed doors)? 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 Specify any problems Hx of Preganancy in last 3 No 02/15/25 10:12 Months Nurse Filling Out Transfusion [facility] 02/15/25 10:12 & Questions: Date: 02/15/25 02/15/25 10:12 Time: 10:21 02/15/25 10:12 Patient unable to answer at this time (ie. confused, unrespo /Reproduction History /Reproductive History - certified shorthand reporter: /Reproductive Hx- certified shorthand reporter Hx Now No 02/15/25 10:12 Gestational Age (in weeks): EDC: Hx Hx Para Hx Section SAB No 02/15/25 10:12 Active Medications Active Medications: Current Medications Generic Name Dose Route Start Last Admin Trade Name Freq PRN Reason Stop Dose Admin Lactated Ringer's 1,000 mls @ 15 mls/hr 02/20/25 07:00 02/20/25 07:06 IV 15 mls/hr .Q48H RENETTA Administration PFSH Medical History Post-menopausal Marijuana use Back pain Generalized abdominal pain Genetic testing Status post hysteroscopy Wears glasses Depression Anxiety Arthritis Bladder disease High cholesterol Gastric reflux Shortness of breath on exertion Former smoker CPAP (continuous positive airway pressure) dependence Hypertension Home Medications ?Medication ?Instructions ?Recorded ?Last Taken ?Type amlodipine 10 mg tablet 10 mg PO DAILY 10/07/2102/08 History paroxetine HCl 40 mg tablet (Paxil) 40 mg PO DAILY 02/19/25 History atorvastatin 10 mg tablet 10 mg PO QHS 10/08/21 History cholecalciferol (vitamin D3) 50 50 mcg PO DAILY 02/19/25 History mcg (2,000 unit) capsule multivitamin 1 tab PO DAILY 10/08/2102/08 History omeprazole 40 mg capsule,delayed 40 mg PO DAILY 02/20/25 History release osteo biflex 1 tab PO DAILY 10/08/2102/08 History vibegron 75 mg tablet (Gemtesa) 75 mg PO DAILY 2 02/19/25 History vitamin E 200 unit capsule 200 unit PO DAILY 10/08/21 02/19/25 History Allergy/AdvReac Type Severity Reaction Status Date / Time No Known Allergies Allergy Verified 02/20/25 06:58 Family History Mother Lung cancer Daughter Lung cancer Father Stomach cancer Surgical History S/P dilation and curettage (~10/14/21) History of Social History Smoking Status: Former smoker alcohol intake: current details: occasionally substance use type: does not use caffeine: Yes what type of physical activity do you participate in: none seatbelt use: always do you feel safe at home: Yes additional social history: Review of Systems (Anesthesia) ROS Narrative System reviewed and no additional complaints, except as documented.
--- NOTE | 2025-02-20 08:00 | COLBX_PTH ---
PATIENT: EDUARDO ARITA LOC: EN U#:[id number] AGE/SX: 74/F ROOM: RE02/20/[address]: Dr. Crys Zapien MD : 1950 BED: DIS: 02/20/2025 SPEC #: [id number] RECD: 02/20/25 10:36 STATUS: CROW MISSY #: [id number] OVIDIO: 02/20/25 08:[address]: Crys Zapien DEPT: SURGICAL PATHOLOGY RECD BY: Philipp Yarbrough ENTERED: 02/20/25 10:37 SP TYPE: COLON BX OTHR DR: Dr. Hugo Ro MD Tissues: A - Transverse colon B - Descending colon C - Rectum, NOS Procedures: Surgery Specimen Level IV HEADER OPERATION: Colonoscopy with polypectomy and biopsy PRE-OP DIAGNOSIS: Fecal occult blood test positive, history of colonic polyp, hernia, inguinal, right TISSUE SUBMITTED: A- Transverse colon polyp biopsy x2, B- Descending colon polyp biopsy,C- Rectum polyps, polypectomy and biopsy MICROSCOPIC DIAGNOSIS A. Transverse colon, polyp x2, biopsy: - Tubular adenoma (two fragments). B. Descending colon, polyp, biopsy: - Sessile serrated lesion. C. Rectum, polyps, biopsy: - Hyperplastic polyp (multiple fragments). MICROSCOPIC DESCRIPTION Slides are reviewed. GROSS DESCRIPTION A. Received in fixative is one container labeled with the patient's name and designated Transverse colon polyp biopsy. The specimen consists of two irregular fragments of light esparza soft tissue that measure 0.3 and 0.5 cm. The specimen is totally submitted in one cassette. B. Received in fixative is one container labeled with the patient's name and designated Descending colon polyp biopsy. The specimen consists of multiple irregular fragments of light esparza soft tissue that in aggregate measure 1.1 x 0.7 x 0.1 cm. The specimen is totally submitted in one cassette. C. Received in fixative is one container labeled with the patient's name and designated Rectum polyp biopsy. The specimen consists of multiple irregular fragments of light esparza soft tissue that in aggregate measure 1.5 x 0.4 x 0.1 cm. The specimen is totally submitted in one cassette. [place] 02/20/2025 CPT:46605o2
--- NOTE | 2025-02-20 08:27 | OP.COLON_ITS ---
Patient Name: Natali Mondragon Procedure Date: 02/20/2025 7:30 AM Date of : 1950 Age: 74 Procedure: Colonoscopy Indications: High risk colon cancer surveillance: Personal history of sessile serrated colon polyp (less than 10 mm in size) with no dysplasia, Family history of colon cancer in a first-degree relative before age 60 years Providers: Crys Zapien MD Referring MD: Hugo Ro Medicines: Monitored Anesthesia Care Patient Profile: This is a 74 year old female. Last Colonoscopy: 2023. Complications: No immediate complications. Procedure: Pre-Anesthesia Assessment: - Prior to the procedure, a History and Physical was performed, and patient medications and allergies were reviewed. The patient's tolerance of previous anesthesia was also reviewed. The risks and benefits of the procedure and the sedation options and risks were discussed with the patient. All questions were answered, and informed consent was obtained. Prior Anticoagulants: The patient has taken no anticoagulant or antiplatelet agents. ASA Grade Assessment: Per anesthesia. After reviewing the risks and benefits, the patient was deemed in satisfactory condition to undergo the procedure. After I obtained informed consent, the scope was passed under direct vision. Throughout the procedure, the patient's blood pressure, pulse, and oxygen saturations were monitored continuously. The Colonoscope was introduced through the anus and advanced to the cecum, identified by appendiceal orifice and ileocecal valve. The colonoscopy was performed without difficulty. The patient tolerated the procedure well. The quality of the bowel preparation was good. Scope In: 7:37:39 AM Scope Withdrawal Time 0 hours 30 minutes 27 seconds Scope Out: 8:16:23 AM Total Procedure Duration Time 0 hours 38 minutes 44 seconds Findings: The perianal and digital rectal examinations were normal. Multiple semi-sessile polyps were found in the rectum and descending colon. The polyps were 3 to 5 mm in size. These polyps were removed with a hot snare. Resection and retrieval were complete. Two sessile polyps were found in the transverse colon. The polyps were 3 to 5 mm in size. These polyps were removed with a cold biopsy forceps. Resection and retrieval were complete. Impression: - Multiple 3 to 5 mm polyps in the rectum and in the descending colon, removed with a hot snare. Resected and retrieved. - Two 3 to 5 mm polyps in the transverse colon, removed with a cold biopsy forceps. Resected and retrieved. Recommendation: - Await pathology results. - Repeat colonoscopy 2-3 years for surveillance based on pathology results. - Continue present medications. Procedure Code(s): --- Professional --- 50311, PT, Colonoscopy, flexible; with removal of tumor(s), polyp(s), or other lesion(s) by snare technique 00773, 59, Colonoscopy, flexible; with biopsy, single or multiple Diagnosis Code(s): --- Professional --- Z86.010, Personal history of colonic polyps D12.8, Benign neoplasm of rectum D12.4, Benign neoplasm of descending colon D12.3, Benign neoplasm of transverse colon (hepatic flexure or splenic flexure) Z80.0, Family history of malignant neoplasm of digestive organs CPT copyright 2021 [employer]. All rights reserved. The codes documented in this report are preliminary and upon urban gardening specialist review may be revised to meet current compliance requirements. MD Crys Bolanos MD 02/20/2025 8:27:22 AM This report has been signed electronically. Number of Addenda: 0 Note Initiated On: 02/20/2025 7:30 AM
--- NOTE | 2025-02-20 08:28 | OP.PROVAT_ITS ---
02/20/2025 Hugo Ro [id number] [place] [address] Re : Colonoscopy procedure for Natali Mondragon Dear Dr. Ro This procedure was performed on Thursday, February 20, 2025. My impressions and recommendations are as follows: Impressions : - Multiple 3 to 5 mm polyps in the rectum and in the descending colon, removed with a hot snare. Resected and retrieved. - Two 3 to 5 mm polyps in the transverse colon, removed with a cold biopsy forceps. Resected and retrieved. Recommendations : - Await pathology results. - Repeat colonoscopy 2-3 years for surveillance based on pathology results. - Continue present medications. My findings are described in the full procedure note, which is enclosed. If I can be of further assistance, please feel free to contact me at Doctor phone number(s): , Work: . Sincerely, MD Crys Bolanos MD 02/20/2025 8:27:22 AM This report has been signed electronically.
--- NOTE | 2025-02-20 08:30 | PCM.POST.ANE ---
Anesthesia: Postop Eval I Current Vital Signs Temperature: 97.7 F Pulse Rate: 80 Blood Pressure: 99/61 Respiratory Rate: 16 Pulse Ox: 100 Oxygen Delivery Method: Room Air Assessment Airway patent: Yes Spontaneous unlabored respirations: Yes Mental status: Awake and Calm nausea: No Vomiting: No Anesthesia Complication: No Fluid Hydration Crystalloid volume administer (ml): 600 Total IV fluid infused: 600 Progress Note Anesthesia document: Postop Eval 1 completed: Yes
--- NOTE | 2025-02-20 15:41 | PCM.POSTANE2 ---
Anesthesia Postop Eval I Sum Postop Eval Completion status Anesthesia document: Postop Eval 1 completed: Yes Anesthesia Postop Eval I Summary Anesthesia Postop Eval I Summary: Anesthesia Postop Eval I: Assessment Summary Airway patent Yes 02/20/25 08:31 [email or web address] Spontaneous unlabored Yes 02/20/25 08:31 [email or web address] respirations Mental status Awake,Calm 02/20/25 08:31 [email or web address] nausea No 02/20/25 08:31 [email or web address] Vomiting No 02/20/25 08:31 [email or web address] Anesthesia Postop Eval I: Fluid Summary Crystalloid volume administer 600 02/20/25 08:31 [email or web address] (ml) Colloids volume administered ( ml) Blood Product volume administered (ml) Total IV fluid infused 600 02/20/25 08:31 [email or web address] Anesthesia Postop Eval I: Summary Notes Anesthesia Complication No 02/20/25 08:31 [email or web address] Anesthesia Complication Comment: Post-operative progress note Anesthesia: Postop Eval II Evaluation Mental status: Awake Pain Level: 0 nausea: No Vomiting: No
== END 2025-02-20 09:03 | disposition home or self-care (01) ==
LOC: EN 06:43 → AC 06:44
PROVIDERS: PCP Internal Medicine; Referring Provider Internal Medicine; Visit Provider Surgery
PROC: 0DJD8ZZ Inspection of Lower Intestinal Tract, Via Natural or Artificial Opening Endoscopic (ICD-10-PCS; CPT 45378; principal; 2025-02-20 07:55)
DX: Z12.11 Encounter for screening for malignant neoplasm of colon (principal); K21.9 Gastro-esophageal reflux disease without esophagitis; K40.90 Unilateral inguinal hernia, without obstruction or gangrene, not specified as recurrent; I10 Essential (primary) hypertension; R19.5 Other fecal abnormalities; Z86.0100 Personal history of colon polyps, unspecified; E78.00 Pure hypercholesterolemia, unspecified; D12.4 Benign neoplasm of descending colon; Z87.891 Personal history of nicotine dependence; D12.3 Benign neoplasm of transverse colon; K62.1 Rectal polyp; Z79.899 Other long term (current) drug therapy
CPT/HCPCS: 45380; 45385; 88305; J2405

== ENCOUNTER 2025-03-21 05:44 | Day surgery (SDC) | payer MEDICARE, MEDICAID, SELFPAY ==
--- NOTE | 2025-03-07 19:47 | PAT.ANE_ITS ---
Pre-Assessment Diagnosis/Proposed Procedure Planned Operative Procedure(s): LAP ROBOTIC INGUINAL HERNIA REPAIR WITH MESH POSS BILAT Anesthesia History Anesthesia History - medicare insurance specialist: Anesthesia History - medicare insurance specialist Hx Hospitalization No 03/07/25 09:44 Any Problems With Anesthesia No 03/07/25 09:44 Cholinesterase deficiency No 03/07/25 09:44 You/Your Family Experience No 03/07/25 09:44 fever (hyperthermia) with Relationship Recent Exposure to Contagious No 10/14/21 11:36 Disease Does patient have nerve No 03/07/25 09:44 stimulator Patient instructed to have device shut off --Does patient have Pacemaker or ICD? When Was Last Pacemaker Check QUESTION #4 FULL TEXT: You/Your Family Experience fever (hyperthermia) with Anesthesia Last Oral Intake Last Oral intake: Last Oral Intake NPO since Meds taken in AM with sips of water? Meds patient instructed to take am of surgery PONV PONV - medicare insurance specialist: PONV - medicare insurance specialist Female Yes 03/07/25 09:44 HX of Motion Sickness No 03/07/25 09:44 HX of N/V After Surgery No 03/07/25 09:44 Non-Smoker Yes 03/07/25 09:44 Duration of Surgery greater Yes 03/07/25 09:44 than 60 minutes Number of Risk Factors 3 03/07/25 09:44 PONV Score Moderate Risk 03/07/25 09:44 Height & Weight Height & Weight: Anesthesia: Height & Weight Height 4 ft 9 in 02/01/25 10:20 Respiratory Assessment Respiratory Assessment - medicare insurance specialist: Respiratory Tract Infection Hx - medicare insurance specialist Hx Respiratory Tract Infection No 03/07/25 09:44 STOP Sleep Apnea STOP Sleep Apnea - medicare insurance specialist: STOP Sleep Apnea - medicare insurance specialist Hx Hypertension Yes: CONTROLLED WITH MED 03/07/25 09:44 Hx Sleep Apnea Yes 03/07/25 09:44 CPAP Yes: WAS NON COMPLIANT, 03/07/25 09:44 INSURANCE TOOK MACHINE AWAY BIPAP No 03/07/25 09:44 Do you snore loudly (louder than talking or can be heard Do you often feel tired/ fatigued/ sleepy during daytime? Has anyone observed you stop breathing during sleep? STOP Results Positive 03/07/25 09:44 QUESTION #5 FULL TEXT : Do you snore loudly (louder than talking or can be heard through closed doors)? 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 Specify any problems Hx of Preganancy in last 3 No 03/07/25 09:44 Months Nurse Filling Out Transfusion DSCHRIBER 03/07/25 09:44 & Questions: Date: 03/07/25 03/07/25 09:44 Time: 09:45 03/07/25 09:44 Patient unable to answer at this time (ie. confused, unrespo /Reproduction History /Reproductive History - medicare insurance specialist: /Reproductive Hx- medicare insurance specialist Hx Now No 03/07/25 09:44 Gestational Age (in weeks): EDC: Hx Hx Para Hx Section SAB No 03/07/25 09:44 PFSH Medical History (Updated 03/07/25 @ 09:50 by Ivory Quiroga) Post-menopausal Marijuana use Back pain Generalized abdominal pain Genetic testing Wears glasses Depression Anxiety Arthritis Bladder disease High cholesterol Gastric reflux Shortness of breath on exertion Former smoker CPAP (continuous positive airway pressure) dependence Hypertension Home Medications ?Medication ?Instructions ?Recorded ?Last Taken ?Type amlodipine 10 mg tablet 10 mg PO DAILY 10/07/2102/08 History paroxetine HCl 40 mg tablet (Paxil) 40 mg PO DAILY 02/19/25 History atorvastatin 10 mg tablet 10 mg PO QHS 10/08/21 History cholecalciferol (vitamin D3) 50 50 mcg PO DAILY 02/19/25 History mcg (2,000 unit) capsule multivitamin 1 tab PO DAILY 10/08/2102/08 History omeprazole 40 mg capsule,delayed 40 mg PO DAILY 02/20/25 History release osteo biflex 1 tab PO DAILY 10/08/2102/08 History vibegron 75 mg tablet (Gemtesa) 75 mg PO DAILY 2 02/19/25 History vitamin E 200 unit capsule 200 unit PO DAILY 10/08/21 02/19/25 History Allergy/AdvReac Type Severity Reaction Status Date / Time No Known Allergies Allergy Verified 03/07/25 09:40 Family History Mother Lung cancer Daughter Lung cancer Father Stomach cancer Surgical History (Updated 03/07/25 @ 09:50 by Ivory Quiroga) Hx of colonoscopy with polypectomy S/P dilation and curettage (~10/14/21) History of Social History Smoking Status: Former smoker alcohol intake: current details: occasionally substance use type: does not use caffeine: Yes what type of physical activity do you participate in: none seatbelt use: always do you feel safe at home: Yes additional social history: Audit: Pertinent Findings Pertinent Findings EKG Perinent findings: August 13, 2024. Normal sinus rhythm. Nonspecific T wave abnormality. Recommendation Anesthesia Recommendation Anesthesia recommendation: OPTIMIZED for anesthesia
[2025-03-21] VITALS (10 sets, daily range): BP systolic 103–129; BP diastolic 56–67; PULSE 72–90; RESP 16–18; TEMP 36.1–36.8; O2SAT 94–100; BMI 32.0
--- OUTSIDE RECORDS SUMMARY | 2025-03-21 05:48 | XMS RPT_ITS | CCD ---
Author Organization [facility] CliniSyoh Care Team Providers Care Cloth Shrinking Machine Operator Name Role Phone Dr. Hugo Ro Primary Care Provider Dr. Hugo Ro Referring Provider Dr. Kay Felton Attending Provider Bibiana Steele Attending Provider Unavailable Dr. Kay Felton Other Provider Dr. Kay Felton Referring Provider Jayjay MOLINA, Hugo Glover Primary Care Provider Jayjay MOLINA, Hugo Glover Primary Care Provider Jayjay MOLINA, Hugo Glover Primary Care Provider Jayjay MOLINA, Hugo Glover Primary Care Provider Yvonne HOUSE SERVANT.ART SALES CONSULTANT, Marivel M Unavailable Dr. Hugo Ro MD Primary Care Provider Dr. Hugo Ro MD Referring Provider Dr. Kay Felton DO Attending Provider Jayjay MOLINA, Dr. Arias Primary Care Provider Dr. Diane Pacheco MD Attending Provider Dr. Kay Felton DO Referring Provider Dr. Diane Pacheco MD Attending Provider Dr. Crys Zapien MD Attending Provider Dr. Diane Pacheco MD Attending Provider Rupali MOLINA Dr. Spangler Other Provider RO, ADALGISA Primary Care Unavailable RO, ADALGISA Attending Unavailable RO, ADALGISA Primary Care Unavailable RO, ADALGISA Primary Care Unavailable RO, ADALGISA Attending Unavailable RO, ADALGISA Referring Unavailable RO, ADALGISA Primary Care Unavailable MARIVEL DASH Referring Unavailable RO, ADALGISA Primary Care Unavailable THADDEUS SHAW Attending Unavailable MARIVEL DASH Referring Unavailable RO, ADALGISA Primary Care Unavailable THADDEUS SHAW Attending Unavailable RO, ADALGISA Attending Unavailable RO, ADALGISA Primary Care Unavailable RO, ADALGISA Primary Care Unavailable MOOMAFRANCINE Lizarraga Referring Unavailable RO, ADALGISA Primary Care Unavailable RO, ADALGISA Primary Care Unavailable RO, ADALGISA Attending Unavailable MARIVEL DASH Referring Unavailable RO, ADALGISA Primary Care Unavailable MARIVEL DASH Attending Unavailable RO, ADALGISA Primary Care Unavailable Ro, Hugo Primary Care Unavailable Brittneye AndrewsdeKay Referring Unavailabl e Vande Velde, Kay Attending Unavailabl e Ro, Hugo Primary Care Unavailable Robotham, Crys Attending Unavailable Robotham, Crys Referring Unavailable Seferino Rosa Attending Unavailable Ro, Hugo Primary Care Unavailable Ro, Hugo Referring Unavailable Ro, Hugo Primary Care Unavailable Robotham, Crys Attending Unavailable Or, Hugo Primary Care Unavailable Brittneye AndrewsdeKay Referring Unavailabl e Vande Velde, Kay Attending Unavailabl e Ro, Hugo Primary Care Unavailable Robotham, Crys Attending Unavailable Vande Velde, Kay Referring Unavailabl e Ro, Hugo Primary Care Unavailable Ro, Hugo Referring Unavailable Vande Velde, Kay Attending Unavailabl e Vande Velde, Kay Attending Unavailabl e Ro, Hugo Primary Care Unavailable Ro, Hugo Referring Unavailable Ro, Hugo Referring Unavailable Ro, Hugo Primary Care Unavailable Vande Velde, Kay Attending Unavailabl e Ro, Hugo Referring Unavailable Ro, Hugo Primary Care Unavailable Crys Zapien Consulting Unavailable Crys Zapien Attending Unavailable Kay Felton Attending Lisa e Hugo Ro Primary Care Unavailable Hugo Ro Referring Unavailable Hugo Ro Primary Care Unavailable Kay Felton Attending Lisa e Kay Felton Referring Nikabl e Kay Felton Attending Nikabl e Hugo Ro Primary Care Unavailable Kay Felton Referring Unavailabl e Medications Current Medications Medication Drug Class(es) Dates Sig (Normalized) Sig (Original) amLODIPine 10 mg oral tablet (20 sources) Dihydropyridine Calcium Channel Roger Start: 10-07-2021 End: 02-22-2025 take 1 tablet by mouth once daily amLODIPine (NORVASC) 10 mg tablet Indications: Essential hypertension Take 1 tablet by mouth once daily. 90 tablet 3 02/22/2025 Active Start: 04-29-2021 End: 12-27-2022 take 2 tablets [...] tablet (20 sources) HMG-CoA Reductase Inhibitor Start: 2019 End: 2024 take 1 tablet by mouth once daily at bedtime for hyperlipidemia atorvastatin (LIPITOR) 10 mg tablet Indications: Hyperlipidemia, unspecified hyperlipidemia type Take 1 tablet by mouth daily at bedtime. For cholesterol. 90 tablet 3 02/22/2025 Active Comment on above: Take 1 tablet by luis th daily at bedtime. For cholesterol. calcium carbonate 1500 mg / cholecalciferol 200 unt oral tablet (20 sources) Vitamin D Start: 2015 take 1 tablet by mouth twice daily calcium carbonate 600 mg-cholecalciferol 200 units (CALCIUM 600 + D,3,) 600 mg(1,500mg) -200 unit tab Indications: Osteoporosis Take 1 tablet by mouth twice daily. 0 04/22/2016 Active Comment on above: Take 1 tablet by [facility] twice daily. cholecalciferol 0.05 mg oral capsule (20 sources) Vitamin D Start: 2021 take 1 capsule by mouth once daily Cholecalciferol (Vitamin D3) 50 mcg (2,000 unit) capsule Active 50 ug PO DAILY October 08, 2021 12:00am Start: 08-15-2017 take 1 capsule by [facility] once daily Cholecalciferol, Vitamin D3, 1,000 unit cap Take 1 capsule by mouth once daily. 08/15/2017 Active Comment on above: Take 1 capsule by [facility] once daily. Chondroitin Sulfates / Glucosamine (10 sources) Start: 10-08-2021 take 1 tablet by [...] 10:10am Start: 10-08-2021 take 1 tablet by [facility] once daily Multivitamin Active 1 TABLET PO DAILY October 08, 2021 12:00am Multivitamin tablet (4 sources) Start: 10-08-2021 Multivitamin tablet Active 1 {tbl} PO DAILY October 08, 2021 12:00am omeprazole 40 mg delayed release oral capsule (20 sources) Proton Pump Inhibitor Start: 02-07-2020 End: 02-22-2025 take 1 capsule by mouth once daily omeprazole (PRILOSEC) 40 mg capsule Indications: Gastroesophageal reflux disease, unspecified whether esophagitis present Take 1 capsule by mouth once daily. 90 capsule 3 02/22/2025 Active Comment on above: Take 1 capsule by [facility] once daily. PARoxetine hydrochloride 40 mg oral tablet (20 sources) Serotonin Reuptake Inhibitor Start: 04-08-2020 End: 02-22-2025 take 1 tablet by mouth once daily PARoxetine (PAXIL) 40 mg tablet Indications: Anxiety , Depression, unspecified depression type Take 1 tablet by mouth once daily. 90 tablet 3 02/22/2025 Active Comment on above: Take 1 tablet by luis [facility] once daily. Vibegron (10 sources) Start: 10-08-2021 take 1 tablet by [...] daily. vitamin e 90 mg oral capsule (10 sources) Start: 10-08-2021 take 1 capsule by mouth once daily Vitamin E 200 unit capsule Active 200 U PO DAILY October 08, 2021 12:00am Completed/Discontinued Medications Medication Drug Class(es) Dates Sig (Normalized) Sig (Original) acetaminophen 325 mg / oxyCODONE hydrochloride 5 mg oral tablet (10 sources) Opioid Agonist Start: 10-14-2021 End: 12-04-2021 [...] pain. dicyclomine hydrochloride 20 mg oral tablet (4 sources) Anticholinergic Start: 08-13-2024 End: 01-25-2025 take 1 tablet by mouth three times daily Dicyclomine 20 mg tablet Discontinued 20 mg PO THREE TIMES A DAY 20 0 August 13, 2024 1:00am January 25, 2025 9:03am ibuprofen 600 mg oral tablet (10 sources) Nonsteroidal Anti-inflammatory Drug Start: 10-14-2021 End: [...] mg tablet Discontinued 2.5 mg PO DAILY 21 21 0 January 02, 2024 3:16pm January 22, 2024 [...] bedtime. ondansetron 4 mg disintegrating oral tablet (18 sources) Serotonin-3 Receptor Antagonist Start: 08-13-19 End: 01-26-20 take 1 tablet by mouth every six hours as needed for nausea and vomiting Ondansetron 4 mg tablet,disintegratin g Discontinued 4 mg PO EVERY 6 HOURS as needed for nausea and vomiting 20 0 August 13, 2024 1:00am January 25, 2025 9:04am Start: 04-19-2024 End: 02-22-2025 take 1 tablet by mouth every eight hours as needed for nausea ondansetron orally disintegrating (ZOFRAN ODT) 4 mg disintegrating tablet Indications: Nausea and vomiting, unspecified vomiting type Take 1 tablet by mouth every 8 hours as needed for nausea/vomiting. 20 tablet 08/16/2024 02/22/2025 Discontinued Problems Active Problems Problem Classification Problem Date Documented Da te Episodic/Chronic Anxiety disorders (20 sources) Anxiety; Translations: [Anxiety [...] 10-23-2020 Chronic Genitourinary symptoms and ill-defined conditions (15 sources) Urgent desire to urinate; Translations: [Urgency of urination] Episodic Immunizations and screening for infectious disease (1 source) Suspected disease caused by 2019-nCoV; Translations: [Suspected COVID-19 virus infection] Episodic Menopausal disorders (5 sources) Postmenopausal bleeding; Translations: [Postmenopausal bleeding] Onset: 5 08-03-2024 Chronic Mood disorders (20 sources) Depressive disorder; Translations: [Depression] Onset: 0 07-14-2009 Chronic Mood disorders (1 source) Mood disorders; Translations: [Depression, unspecified depression type] Onset: 0 Nonspecific chest pain (12 sources) Chest wall pain; Translations: [Other chest pain] Episodic Osteoporosis (15 sources) Osteoporosis; Translations: [Age-related osteoporosis without current pathological fracture] Onset: 6 04-22-2016 Chronic Other and unspecified benign neoplasm (20 sources) Tubular adenoma ; Translations: [Benign neoplasm, unspecified site] Onset: 2 02-25-2012 Episodic Other and unspecified benign neoplasm (2 sources) History of polyp of colon; Translations: [History of colonic polyps] 02-02-2025 Episodic Other diseases of kidney and ureters (10 sources) Cyst of kidney; Translations: [Cyst of kidney, acquired] 10-13-2021 Episodic Comment on above: 6 cm cyst on right l ower pole of kidney Other female genital disorders (8 sources) Polyp of cervix; Translations: [Polyp of cervix uteri] 12-04-2021 Episodic Other gastrointestinal disorders (5 sources) Diarrhea; Translations: [Diarrhea, unspecified] 08-13-2024 Episodic Other gastrointestinal disorders (2 sources) Occult blood in stools; Translations: [Other fecal abnormalities] 02-02-2025 Episodic Other lower respiratory disease (2 sources) Rib pain; Translations: [Pleurodynia] 10-10-2023 Episodic Other lower respiratory disease (1 source) Dyspnea; Translations: [Dyspnea, unspecified] 04-27-2024 Episodic Other nutritional; endocrine; and metabolic disorders (20 sources) Obese class I; Translations: [Obesity, unspecified] Onset: 2 Chronic Other screening for suspected conditions (not mental disorders or infectious disease) (19 sources) Endometrium thickened; Translations: [Abnormal findings on [...] (1 source) Insomnia; Translations: [Insomnia, unspecified] Episodic Substance-related disorders (3 sources) Cannabis dependence; Translations: [Cannabis dependence, uncomplicated] Onset: 5 02-22-2025 Chronic Unclassified (4 sources) Encounter for screening for malignant neoplasm of colon Unclassified (8 sources) Z12.11 - Encounter for screening for malignant neoplasm of colon Unclassified (1 source) Personal history of colon polyps, unspecified; Translations: [Personal history of colon polyps, unspecified] Onset: 5 Past or Other Problems Problem Classification Problem Date Documented Da te Episodic/Chronic Abdominal hernia (15 sources) Right inguinal hernia ; Translations: [Unilateral inguinal hernia, without obstruction or gangrene, not specified as recurrent] Onset: 08-16-2024 08-16-2024 Episodic Abdominal pain (7 sources) Epigastric pain; Translations: [Epigastric pain] Onset: 04-27-2024 04-27-2024 Episodic Fluid and electrolyte disorders (2 sources) Dehydration; Translations: [Dehydration] Onset: 04-27-2024 04-27-2024 Episodic Nausea and vomiting (13 sources) Nausea; Translations: [Nausea] Onset: 04-19-2024 04-19-2024 Episodic Osteoarthritis (20 sources) Osteoarthritis of right knee joint; Translations: [Unilateral primary osteoarthritis, right knee] Onset: 07-28-2015 Resolved: 01-18-2024 07-28-2015 Chronic Other and unspecified benign neoplasm (1 source) Benign neoplasm, unspecified site; Translations: [Tubular adenoma] Onset: 02-25-2012 Episodic Other bone disease and musculoskeletal deformities (20 sources) Osteopenia; Translations: [Other specified disorders of bone density and structure, unspecified site] Onset: 04-22-2016 11-24-2022 Episodic Other bone disease and musculoskeletal deformities (20 sources) Exostosis; Translations: [Other specified disorders of bone, unspecified site] Onset: 01-18-2008 Resolved: 04-28-2015 04-28-2015 Episodic Other circulatory disease (20 sources) Elevated blood-pressure reading without diagnosis of [...] Onset: 2021 Episodic Other connective tissue disease (20 sources) Neuropathy; Translations: [Neuralgia, neuritis, and radiculitis, unspecified] Onset: 01-18-2008 Resolved: 04-28-2015 04-28-2015 Episodic Other connective tissue disease (20 sources) Enthesopathy; Translations: [Enthesopathy, unspecified] Onset: 06-29-2011 Resolved: 12-01-2015 12-01-2015 Episodic Other connective tissue disease (20 sources) Pain in limb; Translations: [Pain in unspecified limb] Onset: 07-16-2011 Resolved: 12-01-2015 12-01-2015 Episodic Other female genital disorders (1 source) Polyp of cervix uteri; Translations: [Polyp of cervix uteri] Onset: 05-07-2024 Episodic Other injuries and conditions due to external causes (20 sources) Injury of left knee; Translations: [Unspecified injury of left lower leg, initial encounter] Onset: 07-08-2020 Resolved: 02-22-2025 10-21-2020 Episodic Other injuries and conditions due to external causes (1 source) Unspecified injury of left lower leg, initial encounter; Translations: [Injury of left knee, initial encounter] Onset: 09-27-2024 Episodic Other lower respiratory disease (1 source) Dyspnea, unspecified; Translations: [Dyspnea, unspecified type] Onset: 04-27-2024 Episodic Other non-traumatic joint disorders (20 sources) Pain in right knee; Translations: [Pain in joint, lower leg] Onset: 07-28-2015 Resolved: 08-10-2017 08-10-2017 Episodic Other non-traumatic joint disorders (10 sources) Pain in left knee; Translations: [Pain in joint, lower leg] Onset: 09-27-2024 Resolved: 02-22-2025 02-03-2021 Episodic Other nutritional; endocrine; and metabolic disorders (20 sources) Obese class II; Translations: [Obesity, unspecified] Onset: 03-29-2018 Resolved: 05-24-2022 03-29-2018 Chronic Residual codes; unclassified (20 sources) Sleep apnea; Translations: [Sleep apnea, unspecified] [...] Test Name Value Interpretation Reference Range Facility /Rodrigo 03-07-2025 /[facility] Medical Records Department [address] [place] [id number] PAT - Anesthesia 03/07/251946 MR#: [id number] Acct: [id number] Name: NATALI MONDRAGON Rep #: [id number] : 1950 74 From: Michael Wihtten MD PCP: Dr. 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 When Was Last Pacemaker Check QUESTION #4 FULL TEXT: You/Your Family Experience fever (hyperthermia) with Anesthesia Last Oral Intake Last Oral intake: Last Oral Intake NPO since Meds taken in AM with sips of water? Meds patient instructed to take am of surgery PONV PONV - exceptional needs teacher: PONV - exceptional needs teacher Female Yes 03/07/25 09:44 HX of Motion Sickness No 03/07/25 09:44 HX of N/V After Surgery No 03/07/25 09:44 Non-Smoker Yes 03/07/25 09:44 Duration of Surgery greater Yes 03/07/25 09:44 than 60 minutes Number of Risk Factors 3 03/07/25 09:44 PONV Score Moderate Risk 03/07/25 09:44 Height Weight Height Weight: Anesthesia: Height Weight Height 4 ft 9 in 02/01/25 10:20 Respiratory Assessment Respiratory Assessment - exceptional needs teacher: Respiratory Tract Infection Hx - exceptional needs teacher Hx Respiratory Tract Infection No 03/07/25 09:44 STOP Sleep Apnea STOP Sleep Apnea - exceptional needs teacher: STOP Sleep Apnea - exceptional needs teacher Hx Hypertension Yes: CONTROLLED WITH MED 03/07/25 09:44 Hx Sleep Apnea Yes 03/07/25 09:44 CPAP Yes: WAS NON COMPLIANT, 03/07/25 09:44 INSURANCE TOOK MACHINE AWAY BIPAP No 03/07/25 09:44 Do you snore loudly (louder than talking or can be heard Do you often feel tired/ fatigued/ sleepy during daytime? Has anyone observed you stop breathing during sleep? STOP Results Positive 03/07/25 09:44 QUESTION #5 FULL TEXT : Do you snore loudly (louder than talking or can be heard through closed doors)? 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 Specify any problems Hx of Preganancy in last 3 No 03/07/25 09:44 Months Nurse Filling Out Transfusion DSCHRIBER 03/07/25 09:44 Questions: Date: 03/07/25 03/07/25 09:44 Time: 09:45 03/07/25 09:44 Patient unable to answer at this time (ie. confused, unrespo /Reproduction History /Reproductive History - exceptional needs teacher: /Reproductive Hx- exceptional needs teacher Hx Now No 03/07/25 09:44 Gestational Age (in weeks): EDC: Hx Hx Para Hx Section SAB No 03/07/25 09:44 PFSH Medical History (Updated 03/07/25 @ 09:50 by Ivory Quiroga) Post-menopausal Marijuana use Back pain Generalized abdominal pain Genetic testing Wears glasses Depression Anxiety Arthritis Bladder disease High cholesterol Gastric reflux Shortness of breath on exertion Former smoker CPAP (continuous positive airway pressure) dependence Hypertension Home Medications ???Medication ???Instructions ???Recorded ???Last Taken ???Type amlodipine 10 mg tablet 10 mg PO DAILY 10/07/21 02/20/25 H istory paroxetine HCl 40 mg tablet (Paxil) 40 mg PO DAILY 10/07/21 5 History atorvastatin 10 mg tablet 10 mg PO QHS 10/08/21 02/19/25 His tory cholecalciferol (vitamin D3) 50 50 mcg PO DAILY 10/08/21 02/19/25 History mcg (2,000 unit) c (more content not included)... Normal [facility] CNOVon 02-22-2025 CNOV Office Visit (INTMWS ) GIANCARLONATALI Tracy ([id number]) 1950 F Date Time Provider Department 02/22/25 9:00 AM HUGO RO INTMWS During your visit today, we recorded the following information about you: Pulse Respiration Blood pressure Weight 92/minute 16/minute 134/76 68.2 kg Hugo Ro MD 02/22/2025 10:06 AM Signed Subjective Natali Rossana Mondragon is a 74 year old female. She just had a colonoscopy and polypectomies. Repeat was recommended in 2-[address] Zapien was also planning to fix her right inguinal hernia later this month. Her hypertension was above goal. She had not taken her medication. Hyperlipidemia has not been checked lately. ACTIVE PROBLEM LIST Depression Desirae (Obstructive Sleep Apnea) Tubular Adenoma Hyperlipemia Anxiety Osteopenia Impingement Syndrome of Right Shoulder Gastroesophageal Reflux Disease Essential Hypertension Urge Incontinence Impingement Syndrome of Left Shoulder Obesity, Class I, Bmi 30-34.9 Right Inguinal Hernia Marijuana Dependence (Hcc) PAST SURGICAL HISTORY Procedure Laterality Date APPENDECTOMY DELIVERY ATTEMPTED x 3 COLONOSCOPY AND POLYPECTOMY 02/20/2025 Dr. Zapien. Repeat in 2 years. COLONOSCOPY FLX DX W/COLLJ SPEC WHEN PFRMD 11/17/2011 Colonoscopy repeat 18 months COLONOSCOPY FLX DX W/COLLJ SPEC WHEN PFRMD 06/12/2013 Colonoscopy repeat 2 years COLONOSCOPY FLX DX W/COLLJ SPEC WHEN PFRMD 05/12/2015 Colonoscopy COLONOSCOPY FLX DX W/COLLJ SPEC WHEN PFRMD 05/16/2017 3 yr repeat COLONOSCOPY FLX DX W/COLLJ SPEC WHEN PFRMD 06/09/2020 Colonoscopy repeat in 3 years DILATION AND CURETTAGE DXAND/THER NONOBSTETRIC ESOPHAGOGASTRODUODENOSC OPY TRANSORAL DIAGNOSTIC 01/01/2019 EGD HYSTEROSCOPY, DIAGNOSTIC (SEPARATE 10/14/2021 PAST SURGICAL HISTORY OF 06/19/2008 left midfoot exostectomy Social History Tobacco Use Smoking status: Former Types: Cigarettes Smokeless tobacco: Never Tobacco comments: very rarely when I was a teenager Vaping Use Vaping status: Never Used Substance Use Topics Alcohol use: Yes Comment: occasional wine with dinner Drug use: Yes Frequency: 7.0 times per week Types: Marijuana Comment: daily smokes 1/2 joint am and pm Current Outpatient Medications Medication Sig vibegron (GEMTESA) 75 mg tablet Take 1 tablet by mouth once daily. Cholecalciferol, Vitamin D3, 1,000 unit cap Take 1 capsule by mouth once daily. calcium carbonate 600 mg-cholecalciferol 200 units (CALCIUM 600 + D,3,) 600 mg(1,500mg) -200 unit tab Take 1 tablet by mouth twice daily. amLODIPine (NORVASC) 10 mg tablet Take 1 tablet by mouth once daily. atorvastatin (LIPITOR) 10 mg tablet Take 1 tablet by mouth daily at bedtime. For cholesterol. omeprazole (PRILOSEC) 40 mg capsule Take 1 capsule by mouth once daily. PARoxetine (PAXIL) 40 mg tablet Take 1 tablet by mouth once daily. No current facility-administered medications for this visit. Review of Systems Constitutional: Negative for fatigue. Respiratory: Negative for cough and shortness of breath. Cardiovascular: Negative for chest pain, palpitations and leg swelling. Gastrointestinal: Negative for abdominal pain, constipation and diarrhea. Musculoskeletal: Negative for arthralgias. Objective BP 134/76 (BP Site: Right Arm, BP Position: Sitting) Pulse 92 Resp 16 Wt 68.2 kg (150 lb 5.7 oz) BMI 33.35 kg/m? Physical Exam Constitutional: General: She is not in acute distress. Appearance: She is not ill-appearing. Cardiovascular: Rate and Rhythm: Normal rate and regular rhythm. Heart sounds: S1 normal and S2 normal. No murmur heard. No gallop. Pulmonary: Breath sounds: Normal breath sounds. Abdominal: Palpations: Abdomen is soft. Tenderness: There is no abdominal tenderness. Musculoskeletal: Right lower leg: No edema. Left lower leg: No edema. Neurological: Mental Status: She is alert. Gait: Gait normal. Psychiatric: Mood and Affect: Mood normal. Behavior: Behavior normal. ASSESSMENT/PLAN: 1. Marijuana dependence (HCC) - ICD9: 304.30, ICD10: F12.20 (primary diagnosis) - She was counseled on the risks. 2. Essential hypertension - ICD9: 401.9, ICD10: I10 - Worsening control - Continue current medications - Follow up [facility] visit - AMLODIPINE 10 MG TABLET - COMPLETE BLOOD COUNT 3. Hyperlipidemia, unspecified hyperlipidemia type - ICD9: 272.4, ICD10: E78.5 - Control undetermined, due for labs - Continue current medications - Counseled on healthy diet and regular exercise - ATORVASTATIN 10 MG TABLET - COMPREHENSIVE METABOLIC PANEL - LIPID PANEL, FASTING 4. Gastroesophageal reflux disease, unspecified whether esophagitis present - ICD9: 530.81, ICD10: K21.9 - Controlled. - OMEPRAZOLE 40 MG CAPSULE,DELAYED RELEASE 5. Anxiety - ICD9: 300.00, ICD10: F41.9 - (more content not included)... Normal [facility] Colonoscopy Reporton 025 Colonoscopy Report [facility] Medical Records Department [address] [place] [address] Colonoscopy Report MR#: [id number] Acct: [id number] Name: NATALI MONDRAGON Rep #: [id number] : 1950 74 From: Crys Zapien MD PCP: Dr. Hugo Ro MD Status:[facility] Patient Name: Natali Mondragon Procedure Date: 02/20/2025 7:30 AM Date of : 1950 Age: 74 Procedure: Colonoscopy Indications: High risk colon cancer surveillance: Personal history of sessile serrated colon polyp (less than 10 mm in size) with no dysplasia, Family history of colon cancer in a first-degree relative before age 60 years Providers: Crys Zapien MD Referring MD: Hugo Ro Medicines: Monitored Anesthesia Care Patient Profile: This is a 74 year old female. Last Colonoscopy: 2023. Complications: No immediate complications. Procedure: Pre-Anesthesia Assessment: - Prior to the procedure, a History and Physical was performed, and patient medications and allergies were reviewed. The patient's tolerance of previous anesthesia was also reviewed. The risks and benefits of the procedure and the sedation options and risks were discussed with the patient. All questions were answered, and informed consent was obtained. Prior Anticoagulants: The patient has taken no anticoagulant or antiplatelet agents. ASA Grade Assessment: Per anesthesia. After reviewing the risks and benefits, the patient was deemed in satisfactory condition to undergo the procedure. After I obtained informed consent, the scope was passed under direct vision. Throughout the procedure, the patient's blood pressure, pulse, and oxygen saturations were monitored continuously. The Colonoscope was introduced through the anus and advanced to the cecum, identified by appendiceal orifice and ileocecal valve. The colonoscopy was performed without difficulty. The patient tolerated the procedure well. The quality of the bowel preparation was good. Scope In: 7:37:39 AM Scope Withdrawal Time 0 hours 30 minutes 27 seconds Scope Out: 8:16:23 AM Total Procedure Duration Time 0 hours 38 minutes 44 seconds Findings: The perianal and digital rectal examinations were normal. Multiple semi-sessile polyps were found in the rectum and descending colon. The polyps were 3 to 5 mm in size. These polyps were removed with a hot snare. Resection and retrieval were complete. Two sessile polyps were found in the transverse colon. The polyps were 3 to 5 mm in size. These polyps were removed with a cold biopsy forceps. Resection and retrieval were complete. Impression: - Multiple 3 to 5 mm polyps in the rectum and in the descending colon, removed with a hot snare. Resected and retrieved. - Two 3 to 5 mm polyps in the transverse colon, removed with a cold biopsy forceps. Resected and retrieved. Recommendation: - Await pathology results. - Repeat colonoscopy 2-3 years for surveillance based on pathology results. - Continue present medications. Procedure Code(s): --- Professional --- 43656, PT, Colonoscopy, flexible; with removal of tumor(s), polyp(s), or other lesion(s) by snare technique 40735, 59, Colonoscopy, flexible; with biopsy, single or multiple Diagnosis Code(s): --- Professional --- Z86.010, Personal history of colonic polyps D12.8, Benign neoplasm of rectum D12.4, Benign neoplasm of descending colon D12.3, Benign neoplasm of transverse colon (hepatic flexure or splenic flexure) Z80.0, Family history of malignant neoplasm of digestive organs CPT copyright 2021 [employer] [employer]. All rights reserved. The codes documented in this report are preliminary and upon commercial escrow officer review may be revised to meet current compliance requirements. MD Crys Bolanos MD 02/20/2025 8:27:22 AM This report has been signed electronically. Number of Addenda: 0 Note Initiated On: 02/20/2025 7:30 AM 02/20/25826 Date Crys Zapien MD Cosigner Signature: Date (if indicated) CC: Dr. Crys Zapien MD; Dr. Hugo Ro MD Date Dictated: 02/20/25729 Date Transcribed: Procurement Inspector: CRUZITO Shah [facility] MR/OP.Mary 02-20-2025 MR/OP.[facility] Medical Records Department [address] [place] [address] [facility] MR#: [id number] Acct: [id number] Name: NATALI MONDRAGON Rossana Rep #: [id number] : 1950 74 From: Crys Zapien MD PCP: Dr. Hugo Ro MD Status:REG [facility] 02/20/2025 Hugo Ro [address] [place] [address] Re : Colonoscopy procedure for Natali Giancarlo Dear Dr. Ro This procedure was performed on Tuesday, February 20, 2025. My impressions and recommendations are as follows: Impressions : - Multiple 3 to 5 mm polyps in the rectum and in the descending colon, removed with a hot snare. Resected and retrieved. - Two 3 to 5 mm polyps in the transverse colon, removed with a cold biopsy forceps. Resected and retrieved. Recommendations : - Await pathology results. - Repeat colonoscopy 2-3 years for surveillance based on pathology results. - Continue present medications. My findings are described in the full procedure note, which is enclosed. If I can be of further assistance, please feel free to contact me at Doctor phone number(s): , Work: . Sincerely, MD Crys Bolanos MD 02/20/2025 8:27:22 AM This report has been signed electronically. 02/20/25826 Date Crys Zapien MD Cosigner Signature: Date (if indicated) CC: Dr. Crys Zapien MD; Dr. Hugo Ro MD Date Dictated: 02/20/25729 Date Transcribed: Procurement Inspector: CRUZITO Shah [facility] MR/POSTOP.[facility] 02-20-2025 MR/POSTOP.[facility] Medical Records Department [address] [place] [address] Anesthesia Postop Eval I 02/20/25829 MR#: [id number] Acct: [id number] Name: NATALI MONDRAGON Rep #: [id number] : 1950 74 From: Ronald Rosa PCP: Dr. Hugo Ro MD Status:REG SDC Y Race: C Location: [place] [address] Anesthesia: Postop Eval I Current Vital Signs Temperature: 97.7 F Pulse Rate: 80 Blood Pressure: 99/61 Respiratory Rate: 16 Pulse Ox: 100 Oxygen Delivery Method: Room Air Assessment Airway patent: Yes Spontaneous unlabored respirations: Yes Mental status: Awake and Calm nausea: No Vomiting: No Anesthesia Complication: No Fluid Hydration Crystalloid volume administer (ml): 600 Total IV fluid infused: 600 Progress Note Anesthesia document: Postop Eval 1 completed: Yes 02/20/25 0831 Date Ronald Ramseytamekamarty Signature: Date CC: Signed Normal [facility] MR/[id number] 02-20-2025 [facility] Medical Records Department [address] [place] [address] Anesthesia Postop Eval II 02/20/25 1541 MR#: [id number] Acct: [id number] Name: NATALI MONDRAGON Rep #: [id number] : 1950 74 From: Jenifer Adams CRNA PCP: Dr. Hugo Ro MD Status:[facility] Y Race: C Location: [place] Anesthesia Postop Eval I Sum Postop Eval Completion status Anesthesia document: Postop Eval 1 completed: Yes Anesthesia Postop Eval I Summary Anesthesia Postop Eval I Summary: Anesthesia Postop Eval I: Assessment Summary Airway patent Yes 02/20/25 08:31 [email or web address] Spontaneous unlabored Yes 02/20/25 08:31 [email or web address] respirations Mental status Awake,Calm 02/20/25 08:31 [email or web address] nausea No 02/20/25 08:31 [email or web address] Vomiting No 02/20/25 08:31 [email or web address] Anesthesia Postop Eval I: Fluid Summary Crystalloid volume administer 600 02/20/25 08:31 [email or web address] (ml) Colloids volume administered ( ml) Blood Product volume administered (ml) Total IV fluid infused 600 02/20/25 08:31 [email or web address] Anesthesia Postop Eval I: Summary Notes Anesthesia Complication No 02/20/25 08:31 [email or web address] Anesthesia Complication Comment: Post-operative progress note Anesthesia: Postop Eval II Evaluation Mental status: Awake Pain Level: 0 nausea: No Vomiting: No 02/20/25 1628 Date Jenifer Adams BRANDON Ramseyigner Signature: Date CC: Signed Normal [facility] Surgery Specimen Level [place] 02-20-2025 Surgery Specimen Level IV Patient Age/Sex Location Account Attending Physician NATALI MONDRAGON 74/F EN [id number] Dr. Crys Zapien MD Specimen: [id number] Received: 02/20/25-1035 Status: CROW Gonzalez Num: [id number] Spec Type: COLON BX Subm Dr: Dr. Crys Zapien MD HEADER OPERATION: Colonoscopy with polypectomy and biopsy PRE-OP DIAGNOSIS: Fecal occult blood test positive, history of colonic polyp, hernia, inguinal, right TISSUE SUBMITTED: A- Transverse colon polyp biopsy x2, B- Descending colon polyp biopsy,C- Rectum polyps, polypectomy and biopsy MICROSCOPIC DIAGNOSIS A. Transverse colon, polyp x2, biopsy: - Tubular adenoma (two fragments). B. Descending colon, polyp, biopsy: - Sessile serrated lesion. C. Rectum, polyps, biopsy: - Hyperplastic polyp (multiple fragments). MICROSCOPIC DESCRIPTION Slides are reviewed. GROSS DESCRIPTION A. Received in fixative is one container labeled with the patient's name and designated Transverse colon polyp biopsy. The specimen consists of two irregular fragments of light esparza soft tissue that measure 0.3 and 0.5 cm. The specimen is totally submitted in one cassette. B. Received in fixative is one container labeled with the patient's name and designated Descending colon polyp biopsy. The specimen consists of multiple irregular fragments of light esparza soft tissue that in aggregate measure 1.1 x 0.7 x 0.1 cm. The specimen is totally submitted in one cassette. C. Received in fixative is one container labeled with the patient's name and designated Rectum polyp biopsy. The specimen consists of multiple irregular fragments of light esparza soft tissue that in aggregate measure 1.5 x 0.4 x 0.1 cm. The specimen is totally submitted in one cassette. [place] 02/20/2025 [facility]:[id number] Patient Age/Sex Location Account Attending Physician NATALI MONDRAGON 74/F EN [id number] Dr. Crys Zapien MD Signed (signature on file) Dr. Jaqueline Veras MD 02/24/25 1554 Normal [facility] Comment on above: Performed By: #### P SUIV #### [facility] Laboratory [address] [place], [place], [address] MR/PATEdi 02-15-2025 MR/PAT.CLIF [facility] Medical Records Department [address] [place] [address] PAT - Anesthesia 02/15/25 1454 MR#: [id number] Acct: [id number] Name: NATALI MONDRAGON Rep #: [id number] : 1950 74 From: Michael Whitten MD PCP: Dr. 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 Hx Hospitalization No 02/15/25 10:12 Any Problems [...] take am of surgery PONV PONV - exceptional needs teacher: PONV - exceptional needs teacher Female Yes 02/15/25 10:12 HX of Motion [...] 02/01/25 10:20 Respiratory Assessment Respiratory Assessment - exceptional needs teacher: Respiratory Tract Infection Hx - exceptional needs teacher Hx Respiratory Tract Infection No 02/15/25 10:12 STOP Sleep Apnea STOP Sleep Apnea - exceptional needs teacher: STOP Sleep Apnea - exceptional needs teacher Hx Hypertension Yes 02/15/25 10:12 Hx Sleep [...] Tobacco Use History Tobacco Use History - exceptional needs teacher: Tobacco Use History - exceptional needs teacher Tobacco Use Smoking Status Former smoker 02/15/25 10:12 Hx Tobacco Use No 02/15/25 10:12 Years Smoking Packs Smoked per Day Smoking Cessation Date was No - quit smoking greater 02/15/25 10:12 within the last 15 years than 15 years ago Hx Smoking Cessation Date 07/11/99 02/15/25 10:12 Hx Smoking Cessation No 02/15/25 10:12 Counseling Hematologic Medial History Hematologic Hx - exceptional needs teacher: 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 Specify any problems Hx of Preganancy in last 3 No 02/15/25 10:12 Months Nurse Filling Out Transfusion [facility] 02/15/25 10:12 Questions: Date: 02/15/25 02/15/25 10:12 Time: 10:21 02/15/25 10:12 Patient unable to answer at this time (ie. confused, unrespo /Reproduction History /Reproductive History - exceptional needs teacher: /Reproductive Hx- exceptional needs teacher Hx Now No 02/15/25 10:12 Gestational Age (in weeks): EDC: Hx Hx Para Hx Section SAB No 02/15/25 10:12 [facility] Medical History Post-menopausal Marijuana use Back pain [...] unit) capsule multivitamin 1 tab PO DAILY more content not included)... Normal [facility] Surgery Visit Reporton 02-01 Surgery Visit Report [facility] [address] [place] [address] OFFICE VISIT Date of Service: 02/01/25 MR#: [id number] Acct: [id number] Name: NATALI MONDRAGON Rep #: [id number] : 1950 Provider: Dr. Crys foreman MD Age/Sex: 74/F Location: [facility] Status: Signed Intake Vital Signs 01/25/25 09:01 02/01/25 10:20 Height 4 ft 9 in 4 ft 9 in Weight: 148 lb 4 oz 149 lb BMI 32.1 32.2 BP 127/81 H 130/56 H Blood Pressure Location Rt brachial Position Sitting Respiration 16 Intake Visit Reasons: COLONOSCOPY Chief Complaint: c-scope Metal Lather Required: No Is patient in pain?: Yes [...] you fallen in the past year?: No [facility] Medical History (Updated 02/02/25 @ 11:07 by [...] that location. Patient's last colonoscopy was at [facility] Cecy had a polyp at that time patient [...] healthy appearing, comfortable and no acute distress HENME Head: normocephalic and atraumatic Neck Neck: supple Resp Effort Inspection: normal respiratory effort Cardio (more content not included)... Normal [facility] Arch Cushion Skiving Machine Operator Office Visit Reporton 01-25-2025 Arch Cushion Skiving Machine Operator Office Visit Report [facility] [address] [place] [address] OFFICE VISIT Date of Service: 01/25/25 MR#: [id number] Acct: [id number] Name: NATALI MONDRAGON Rep #: [id number] : 1950 Provider: Dr. 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 Normal [facility] Surgery Specimen Level [place] 01-25-2025 Surgery Specimen Level IV Patient Age/Sex Location Account Attending Physician NATALI MONDRAGON Rossana 74[id number]. Kay Felton, Jonna Specimen: [id number] Received: 01/25/25 Status: CROW Gonzalez Num: [id number] Spec Type: ENDOM BX/C Subm Dr: Dr. Kay Felton, DO HEADER OPERATION: Endometrial biopsy PRE-OP DIAGNOSIS: [...] is submitted in one cassette. Wilfredo 01/25/2025 CPT:41816 Patient Age/Sex Location Account Attending Physician NATALI MONDRAGON 74/F [facility] [id number] Jonna Ramos Signed (signature on file) Dr. Jaqueline Veras MD 01/30/25 1647 Normal [facility] Comment on above: Performed By: #### P KYE ####[facility] [address] [place], [place], [id number] CNTHERAPYon 10-26-2024 CNTHERAPY OT/PT/Speech Visit (PTWS) NATALI MONDRAGON ([id number]) 1950 F Date Time Provider Department 10/26/24 11:00 AM THADDEUS SHAW PTWS Date Time Provider Department [place] 10/26/2024 11:00 AM [id number], COREY PTWS Cecy Welsh Reason for Visit: PT Discharge [752] Primary Visit Diagnosis:Acute pain of left knee [M25.562] Allergies As of Date: 10/26/2024 (No Known Allergies) Date Reviewed: 09/10/2024 Reviewed by: Marivel Dash, HOUSE SERVANT.ART SALES CONSULTANT - Fully Assessed Prescriptions as of 10/26/2024 [...] daily. Meds Comments as of 08/18/2011: Normal [facility] CNTHERAPYon 09-27-2024 CNTHERAPY OT/PT/Speech Visit (PTWS) NATALI MONDRAGON ([id number]) 1950 F Date Time Provider Department 09/27/24 2:00 PM THADDEUS SHAW PTWS Date Time Provider Department Center 09/27/2024 2:00 PM [id number], COREY PTWS Cecy Welsh Reason for Visit: PT Eval [747] Visit Diagnoses:Acute pain of left knee [M25.562] Injury of left knee, initial encounter [S89.92XA] Allergies As of Date: 09/27/2024 (No Known Allergies) Date Reviewed: 09/10/2024 Reviewed by: Marivel Dash APRN.ART SALES CONSULTANT - Fully Assessed Prescriptions as of 09/27/2024 [...] daily. Meds Comments as of 08/18/2011: Normal [facility] Bacteria Ur Culton 5 Bacteria identified Cx Nom (U) ORGANISM ID: 1 50,000-<100,000 CFU/ml Normal urogenital tyrell Normal [facility] Comment on above: Performed By: #### 6 30-4 ####[facility] LABCLIA [id number] [address] [place] CNOVon 09-10-2024 CNOV Office Visit (INTMWS ) NATALI MONDRAGON ([id number]) 1950 F Date Time Provider Department 09/10/24 12:40 PM MARIVEL DASH INTMWS During your visit today, we recorded the following information about you: Pulse Respiration Blood pressure Weight 84/minute 12/minute 132/80 66.7 kg Height 1.43 m Marivel Dash, COREEN.ART SALES CONSULTANT 09/10/2024 1:13 PM Signed Natali Mondragon is [...] General (Internal Medicine) Marivel Dash APRN.RICHARD as Day Camp Unit Leader (Internal Medicine) Diane Pacheco, gynecology urology. [facility] gynecology: Dr. Arriaga. [facility]. Optometry in [place]. Medical/Family history review Reviewed and updated problem [...] R35.0 Chronic, (more content not included)... Normal [facility] UA DIP, URINE (POC)on 2024 BILIRUBIN UA (POCT) Negative Negative [facility] CLARITY UA (POCT) [facility] COLOR UA (POCT) Yellow [facility] GLUCOSE UA (POCT) Negative Negative mg/dL [facility] Hemoglobin Ql (U) Negative Negative [facility] Interpretation and review of laboratory results Abnormal [facility] KETONE UA (POCT) Negative Negative mg/dL [facility] LEUKOCYTES UA (POCT) Trace Abnormal Negative [facility] NITRITE UA (POCT) Negative Negative [facility] PH UA (POCT) 6 4.5 - 8.0 [facility] Protein Ql (U) Negative Negative mg/dL [facility] SPECIFIC GRAVITY UA (POCT) 1.025 1.005 - 1.030 [facility] UROBILINOGEN UA (POCT) 0.2 Nelly l E.U./dL [facility] Location:[address], [place], [place], [address] [place] [address] POINT OF CARE [facility] XR KNEE 4V AP/PA BOTH+LAT/ME R LTon [...] erosions. IMPRESSION: Advanced left knee degenerative change. Procurement Inspector: PSCB Transcribe Date/Time: Sep 13 2024 6:14P Dictated by : JACOB GILMORE MD This examination was interpreted and the report reviewed and electronically signed by: JACOB GILMORE MD on Sep 13 2024 6:15PM EST [id number] Normal [facility] CNOVon 08-16-2024 CNOV Office Visit (INTMWS ) NATALI MONDRAOGN ([id number]) 1950 F Date Time Provider Department 08/16/24 10:00 AM HUGO RO INTMWS During your visit today, we recorded the following information about you: Temperature Pulse Respiration Blood pressure 98 degrees 84/minute 20/minute 118/62 Weight 66.4 kg Hugo Ro MD 08/16/2024 11:52 AM Signed This note was created using [employer] Epigenetics[employer]. Subjective Natali Mondragon is a 73 year [...] 40 m (more content not included)... Normal [facility] Urine Cultureon 08-16-2024 URC Mixed Gram Positive Organisms [place] Count 25,000-50,000 MIXC Mixed contaminants. Submit a new specimen if indicated. Normal [facility] Comment on above: Performed By: #### M 100.8880 ####[facility] [address] [place], [place], [id number] 12 Lead EKGon 08-13-2024 12 Lead EKG [facility] Cardiovascular Services [address] [place] [address] 12 Lead EKG 08/13/242201 MR#: [id number] Acct: [id number] Name: NATALI MONDRAGON Rep #: [id number] : 1950 73 From: Wilfrido Steele MD [...] T wave abnormality Abnormal ECG Confirmed by QUIQUE MOLINA, WILFRIDO ([id number]), production editor LENA RUBIO ([id number]) on 08/14/2024 8:55:04 AM Referred By: Confirmed By: WILFRIDO STEELE MD 08/14/24 0855 Date Wilfrido Steele MD CC: Dr. Seferino Rosa DO; Dr. Hugo Ro MD Signed Normal [facility] CBC W/Diff, Automatedon 02- Absolute Lymph 1.18 X10 3/uL Normal 0.83-4.51 [facility] Comment on above: Performed By: #### L 100.0100, L503.6005, L501.2450, L500.4050 #### [facility] Laboratory [address] [place], [place], [id number] Absolute Neut 6.8 X10 3/uL Normal 2.0-7.7 [facility] Comment on above: Performed By: #### L 100.0100, L503.6005, L501.2450, L500.4050 #### [facility] Laboratory [address] [place], [address] Basophils/100 WBC (Bld) 0.1 % Normal 0-1 [facility] Comment on above: Performed By: #### L 100.0100, L503.6005, L501.2450, L500.4050 #### [facility] Laboratory [address] [place], [address] Eosinophils/100 WBC (Bld) 0.0 % Normal 0-5 [facility] Comment on above: Performed By: #### L 100.0100, L503.6005, L501.2450, L500.4050 #### [facility] Laboratory [address] [place], [address] Erythrocyte distribution width (RBC) [Ratio] 12.5 % Normal 11.6-14.6 [facility] Comment on above: Performed By: #### L 100.0100, L503.6005, L501.2450, L500.4050 #### [facility] Laboratory [address] [place], [address] Hematocrit (Bld) [Volume fraction] 35.9 % Low 37-47 [facility] Comment on above: Performed By: #### L 100.0100, L503.6005, L501.2450, L500.4050 #### [facility] Laboratory [address] [place], [address] Hemoglobin (Bld) [Mass/Vol] 12.5 g/dL Normal 12.0-15.0 [facility] Comment on above: Performed By: #### L 100.0100, L503.6005, L501.2450, L500.4050 #### [facility] Laboratory [address] [place], [address] IG% 0.200 Normal 0.0-0.9 [facility] Comment on above: Result Comment: IG% - Immature Granulocytes (promyelocytes, myelocytes and metamyelocytes) > 1% indicates that a LEFT SHIFT is Present. Performed By: #### L 100.0100, L503.6005, L501.2450, L500.4050 #### [facility] Laboratory [address] [place], [address] Lymphocytes/100 WBC (Bld) 13.9 % Low 19-41 [facility] Comment on above: Performed By: #### L 100.0100, L503.6005, L501.2450, L500.4050 #### [facility] Laboratory [address] [place], [address] MCH (RBC) [Entitic mass] 29.8 pg Normal 27.0-32.0 [facility] Comment on above: Performed By: #### L 100.0100, L503.6005, L501.2450, L500.4050 #### [facility] Laboratory [address] [place], [address] MCHC (RBC) [Mass/Vol] 34.8 g/dL Normal 32-36 [facility] Comment on above: Performed By: #### L 100.0100, L503.6005, L501.2450, L500.4050 #### [facility] Laboratory [address] [place], [address] MCV (RBC) [Entitic vol] 85.5 fL Normal 81-99 [facility] Comment on above: Performed By: #### L 100.0100, L503.6005, L501.2450, L500.4050 #### [facility] Laboratory [address] [place], [address] Monocytes/100 WBC (Bld) 5.3 % Normal 0-10 [facility] Comment on above: Performed By: #### L 100.0100, L503.6005, L501.2450, L500.4050 #### [facility] Laboratory [address] [place], [address] Neutrophils/100 WBC (Bld) 80.5 % High 47-70 [facility] Comment on above: Performed By: #### L 100.0100, L503.6005, L501.2450, L500.4050 #### [facility] Laboratory [address] [place], [address] Nucleated RBC (Bld) [#/Vol] 0 10*3/uL Normal 0-5 [facility] Comment on above: Performed By: #### L 100.0100, L503.6005, L501.2450, L500.4050 #### [facility] Laboratory [address] [place], [place], [address] Platelet mean volume (Bld) [Entitic vol] 9.6 fL Normal 6.2-12.0 [facility] Comment on above: Performed By: #### L 100.0100, L503.6005, L501.2450, L500.4050 #### [facility] Laboratory [address] [place], [address] Platelets (Bld) [#/Vol] 205 10*3/uL Normal 150-450 [facility] Comment on above: Performed By: #### L 100.0100, L503.6005, L501.2450, L500.4050 #### [facility] Laboratory [address] [place], [address] RBC (Bld) [#/Vol] 4.20 10*6/uL Normal 4.2-5.4 [facility] Comment on above: Performed By: #### L 100.0100, L503.6005, L501.2450, L500.4050 #### [facility] Laboratory [address] [place], [address] RDW SD 38.3 fl Normal 35.1-43.9 [facility] Comment on above: Performed By: #### L 100.0100, L503.6005, L501.2450, L500.4050 #### [facility] Laboratory [address] [place], [address] WBC (Bld) [#/Vol] 8.5 10*3/uL Normal 4.4-11.0 [facility] Comment on above: Performed By: #### L 100.0100, L503.6005, L501.2450, L500.4050 #### [facility] Laboratory [address] [place], [address] CNOVon 08-13-2024 CNOV Office Visit (UCWSTR ) NATALI MONDRAGON ([id number]) 1950 F Date Time Provider Department 08/13/24 5:45 PM [address]AUR [facility] During your visit today, we recorded the following information about you: Temperature Pulse Respiration Blood pressure 100.4 degrees 94/minute 20/minute 120/76 Weight 67.6 kg Maurice Kaur APRN.[employer] SALES CONSULTANT 08/13/2024 6:04 PM Signed Came in with [...] Encounter Status:Closed by MAURICE KAUR on 08/13/24 [facility] CTA Abd/Pelvis W/WO Contrast on 08-13-2024 CTA Abd/Pelvis W/WO Contrast [facility] Imaging Services [address] [place] [address] CTA Abd/Pelvis W/WO Contrast MR#: [id number] Acct: [id number] Name: NATALI MONDRAGON Rossana Rep #: [id number] : 1950 F 73 From: Dustin Mahoney DO PCP: Dr. Hugo Ro MD Status: REG ER Study: CTA Abd/Pelvis W/WO Contrast Date of Exam: 10/02 Exam# [id number] Ordering Dr: Seferino Rosa DO PROCEDURE: CTA [...] use of iterative reconstruction technique). [facility] CC: Dr. Seferino Rosa DO; Dr. Hugo Ro MD Procurement Inspector: Signed Normal [facility] Comprehensive Metabolic Prof ilon 08-13-2024 Albumin [Mass/Vol] 3.4 g/dL Normal 3.2-5.0 [facility] Comment on above: Performed By: #### L 100.0100, L503.6005, L501.2450, L500.4050 #### [facility] Laboratory [address] [place], [address] Albumin/Globulin [Mass ratio] 1.0 {ratio} Normal 0.9-2.4 [facility] Comment on above: Performed By: #### L 100.0100, L503.6005, L501.2450, L500.4050 #### [facility] Laboratory [address] [place], [address] ALK P 55 U/L Normal 45-117 [facility] Comment on above: Performed By: #### L 100.0100, L503.6005, L501.2450, L500.4050 #### [facility] Laboratory [address] [place], [address] ALT [Catalytic activity/Vol] 19 U/L Normal 13-56 [facility] Comment on above: Performed By: #### L 100.0100, L503.6005, L501.2450, L500.4050 #### [facility] Laboratory [address] [place], [address] AST [Catalytic activity/Vol] 17 U/L Normal 15-37 [facility] Comment on above: Performed By: #### L 100.0100, L503.6005, L501.2450, L500.4050 #### [facility] Laboratory [address] [place], [address] Bilirubin [Mass/Vol] 0.40 mg/dL Normal 0.20-1.00 [facility] Comment on above: Result Comment: For patients on eltrombopag therapy, use of Dimension [place] TBIL is not recommended. Performed By: #### L 100.0100, L503.6005, L501.2450, L500.4050 #### [facility] Laboratory [address] [place], [address] BUN/CRE 25.7 RATIO High 10-20 [facility] Comment on above: Performed By: #### L 100.0100, L503.6005, L501.2450, L500.4050 #### [facility] Laboratory [address] [place], [address] CA,Total 9.2 mg/dL Normal 8.5-10.1 [facility] Comment on above: Performed By: #### L 100.0100, L503.6005, L501.2450, L500.4050 #### [facility] Laboratory [address] [place], [address] Chloride [Moles/Vol] 112 mmol/L High 98-107 [facility] Comment on above: Performed By: #### L 100.0100, L503.6005, L501.2450, L500.4050 #### [facility] Laboratory [address] [place], [address] CO2 [Moles/Vol] 20.0 mmol/L Low 21.0-32.0 [facility] Comment on above: Performed By: #### L 100.0100, L503.6005, L501.2450, L500.4050 #### [facility] Laboratory [address] [place], [address] Creatinine [Mass/Vol] 0.89 mg/dL Normal 0.55-1.02 [facility] Comment on above: Result Comment: The validity of the calculated GFR GFRAA in patients over 70 years has not been determined. Clinical correlation is essential. Performed By: #### L 100.0100, L503.6005, L501.2450, L500.4050 #### [facility] Laboratory [address] [place], [address] ECRCL 46.85 ml/min Normal [facility] Comment on above: Performed By: #### L 100.0100, L503.6005, L501.2450, L500.4050 #### [facility] Laboratory [address] [place], [address] EST GFR - AA 79 mL/min Normal >60 [facility] Comment on above: Result Comment: Afri can [place] Citizen GFR Calc Performed By: #### L 100.0100, L503.6005, L501.2450, L500.4050 #### [facility] Laboratory [address] [place], [address] GAP 9 Normal 5-15 [facility] Comment on above: Performed By: #### L 100.0100, L503.6005, L501.2450, L500.4050 #### [facility] Laboratory [address] [place], [address] GFR/1.73 sq M.predicted among non-blacks MDRD (S/P/Bld) [Vol rate/Area] 65 mL/min/{1.73_m2} Normal >60 [facility] Comment on above: Result Comment: Non- GFR Calc Performed By: #### L 100.0100, L503.6005, L501.2450, L500.4050 #### [facility] Laboratory [address] [place], [address] Globulin (S) [Mass/Vol] 3.4 g/dL Normal 2.2-4.2 [facility] Comment on above: Performed By: #### L 100.0100, L503.6005, L501.2450, L500.4050 #### [facility] Laboratory [address] [place], [address] Glucose [Mass/Vol] 100 mg/dL Normal 74-106 [facility] Comment on above: Result Comment: Fast ing Glucose result from 100 to 125 mg/dL suggests IMPAIRED HOMEOSTASIS per A.D.A. criteria. Performed By: #### L 100.0100, L503.6005, L501.2450, L500.4050 #### [facility] Laboratory [address] [place], [address] Potassium [Moles/Vol] 3.5 mmol/L Normal 3.5-5.1 [facility] Comment on above: Performed By: #### L 100.0100, L503.6005, L501.2450, L500.4050 #### [facility] Laboratory [address] [place], [address] Sodium [Moles/Vol] 140 mmol/L Normal 136-145 [facility] Comment on above: Performed By: #### L 100.0100, L503.6005, L501.2450, L500.4050 #### [facility] Laboratory [address] [place], [address] T PROT 6.8 g/dL Normal 6.4-8.2 [facility] Comment on above: Performed By: #### L 100.0100, L503.6005, L501.2450, L500.4050 #### [facility] Laboratory [address] [place], [address] Urea nitrogen [Mass/Vol] 23 mg/dL High 7-18 [facility] Comment on above: Performed By: #### L 100.0100, L503.6005, L501.2450, L500.4050 #### [facility] Laboratory [address] [place], [address] Emergency Department Summary on 08-13-2024 Emergency Department Summary [facility] Medical Records Department [address] [place] [address] Emergency Department Summary 08/13/24 MR#: [id number] Acct: [id number] Name: NATALI MONDRAGON Rep #: [id number] : 1950 73 From: Seferino Rosa DO [...] sent her here for further evaluation management. [facility] Medical History Genetic testing Status post hysteroscopy [...] following commands knew that she was at [facility] year is 2024 Skin: Warm, dry, intact no rashes or lesions noted Const Vital Signs: 08/13/24 18:09 08/13/24 20:08 08/13/24 22:00 Temperature 98.2 F Temperature Source Temporal Pulse Rate 95 74 85 Respiratory Rate 16 16 15 Blood Pressure 103/91 H 100/88 H 120/55 L Blood Pressure Mean 95 92 76 Pulse Ox 98 98 98 Oxygen Deli (more content not included)... Normal [facility] Lactic Acidon 08-13-2024 Lactate [Moles/Vol] 1.6 mmol/L Normal 0.4-1.9 [facility] Comment on above: Order Comment: Y Performed By: #### L 100.0100, L503.6005, L501.2450, L500.4050 ####[facility] [address] [place], [place], [address] Lipaseon 08-13-2024 Lipase [Catalytic activity/Vol] 156 U/L High 13-75 [facility] Comment on above: Result Comment: Nehemiah lamar note: LIPASE revised reference range effective 22. New Lipase methodology. Expected to produce lower values than the previous assay method. NEW Reference Range: 13 - 75 U/L Performed By: #### L 100.0100, L503.6005, L501.2450, L500.4050 ####[facility] [address] [place], [address] Stool Occult Blood iFOBon STOB Negative Normal [facility] Comment on above: Performed By: #### M 100.7900 #### [facility] Laboratory [address] [place], [address] Urinalysis, Completeon 08-13 BACTERIA RARE Normal None Seen [facility] Comment on above: Order Comment: CLEAN CATCH Performed By: #### L 400.0001 ####[facility] [address] [place], [address] CAST,FINE GRAN 0-5 SEEN Normal 0-5 [facility] Comment on above: Order Comment: CLEAN CATCH Performed By: #### L 400.0001 ####[facility] [address] [place], [address] EPI,SQUAMOUS 0-5 SEEN Normal 5-10 [facility] Comment on above: Order Comment: CLEAN CATCH Performed By: #### L 400.0001 ####[facility] [address] [place], [address] Mucus Ql (Urine sed) 1+ /hpf Normal [facility] Comment on above: Order Comment: CLEAN CATCH Performed By: #### L 400.0001 ####[facility] [address] [place], [address] RBC 0-5 SEEN Normal 0-5 [facility] Comment on above: Order Comment: CLEAN CATCH Performed By: #### L 400.0001 ####[facility] [address] [place], [address] WBC 10-25 SEEN Normal 0-5 [facility] Comment on above: Order Comment: CLEAN CATCH Performed By: #### L 400.0001 ####[facility] [address] [place], [address] Pelvic w/ Transvaginalon Pelvic w/ Transvaginal [facility] Imaging Services [address] [place] [address] Pelvic w/ Transvaginal MR#: [id number] Acct: [id number] Name: NATALI MONDRAGON Rep #: [id number] : 1950 F 73 From: Joshua sheehan MD PCP: Dr. Hugo Ro MD Status: REG CLI Study: Pelvic w/ Transvaginal Date of Exam: 08/08/24 Exam# [id number] Ordering Dr: Kay Felton DO PROCEDURE: PELVIC [...] are 2 small uterine fibroids. [facility] CC: Dr. Kay Felton DO; Dr. Hugo Ro MD Procurement Inspector: Signed Normal [facility] Arch C[employer]ion Skiving Machine Operator Office Visit Reporton 08-03-2024 Arch [employer]iving [employer] Operator Office Visit Report [facility] [address] [place] [address], [address] [place] [address] OFFICE VISIT Date of Service: 08/03/24 MR#: [id number] Acct: [id number] Name: NATALI MONDRAGON Rep #: [id number] : 1950 Provider: Dr. Kay Fishman DO Age/Sex: 73/F Location: [facility] Status: Signed Intake Vital Signs 05/07/24 14:10 08/03/24 15:49 08/03/24 15:49 Height 4 ft 9 in 4 ft 9 in 4 ft 9 in Weight: 143 lb 4 oz 147 lb 8 oz BMI 30.9 31.8 BP 149/79 H 148/74 H Intake Visit Reasons: 6 M F/U Metal Lather Required: No Is patient in pain?: No [...] structures 08/03/24 1701 Date Kay Felton DO [facility] Signature: Date (if applicable) CC: Normal [facility] SCRN MAMM (CAD)W/JJ BILATo n 06-08-2024 SCRN MAMM (CAD)W/JJ BILAT [facility] Imaging Services [address] [place] [address] SCRN MAMM (CAD)W/JJ BILAT MR#: [id number] Acct: [id number] Name: NATALI MONDRAGON Rep #: [id number] : 1950 F 73 From: Joshua sheehan MD PCP: Dr. Hugo Ro MD Status: [facility] Study: SCRN MAMM (CAD)W/JJ BILAT Date of Exam: 05/12 04/03 Exam# [id number] Ordering [place]: [place] [id number] MAMMOGRAPHY - BILATERAL SCREENING REASON FOR EXAM: [...] delay biopsy of a clinically suspicious abnormality. [id number] Electronically Signed: Joshua Panchal MD at 8:45 EST , CC: Dr. Kay Felton DO; Dr. Hugo Ro MD Procurement Inspector: Signed Normal [facility] [facility] Office Visit (INTMWS ) LEIA MONDRAGONLOTEWA Tracy ([id number]) 1950 F Date Time Provider Department 05/11/24 8:40 AM HUGO RO INTMWS During your visit today, we recorded the following information about you: Pulse Blood pressure Weight 83/minute 126/72 66.7 kg Hugo Ro MD 05/11/2024 8:53 AM Signed This note was created using Zenith Epigeneticsriter. Subjective Patient presents with: Recheck: 2 week [...] for malignant (more content not included)... Normal [facility] Arch Cushion Skiving Machine Operator Office Visit Reporton 05-07-2024 Arch Cushion Skiving Machine Operator Office Visit Report [facility]'s [address], [address] [place] [address] OFFICE VISIT Date of Service: 05/07/24 MR#: [id number] Acct: [id number] Name: NATALI MONDRAGON Rep #: [id number] : 1950 Provider: Dr. Kay Fishman DO Age/Sex: 73/F Location: [facility] Status: Signed Intake Vital Signs 12/04/21 13:06 05/07/24 14:10 Height 4 ft 9 in 4 ft 9 in Weight: 143 lb 4 oz BMI 30.9 BP 149/79 H Intake Visit Reasons: EMB Metal Lather Required: No Is patient in pain?: No [...] on ultrasound R93.89 CPT Codes Endometrial Biopsy (97709) Assessment and Plan Assessment and Plan (1) History of uterine bleeding: Status: Acute (2) Thickened endometrium: Status: Acute (3) Polyp of cervix uteri: Status: Acute (4) Endometrial thickening on ultrasound: Status: Acute Orders: Ord (more content not included)... Normal [facility] Surgery Specimen Level Alden 05-07-2024 Surgery Specimen Level IV Patient Age/Sex Location Account Attending Physician NATALI MONDRAGON 73/Lani LABSPEC [id number] Jonna Ramos Specimen: [id number] Received: 05/07/24 Status: CROW Gonzalez Num: [id number] Spec Type: ENDOM BX/C Kallie Dr: Dr. Kay Felton DO HEADER OPERATION: Endometrial biopsy PRE-OP DIAGNOSIS: Thickened endometrium TISSUE SUBMITTED: Endometrial lining MICROSCOPIC DIAGNOSIS Endometrial biopsy: Scant fragments of benign endometrial epithelium. See comment. / 05/09/2024 COMMENT Clinical correlation and appropriate follow up are necessary. MICROSCOPIC DESCRIPTION Slides are reviewed. GROSS DESCRIPTION Received is one container labeled with the patient's name and not further designated. The specimen consists of a scant amount of soft tissue. The specimen is totally submitted for cell block preparation. 05/08/2024 TC:4 CPT:64283 Patient Age/Sex Location Account Attending Physician [facility]AGON 73[id number]. Kay Felton, Jonna Signed (signature on file) Dr. Kina Driver MD 05/09/24 1239 Normal [facility] Comment on above: Performed By: #### P SUIV #### [facility] Laboratory [facility] [place], [address] CBC panel Auto (Bld)on 04-27 Erythrocyte distribution width (RBC) [Ratio] 11.9 % 11.5 - 15.0 % [facility] Hematocrit (Bld) [Volume fraction] 33.1 % Low 36.0 - 46.0 % [facility] Hemoglobin (Bld) [Mass/Vol] 12.0 g/dL 11.5 - 15.5 g/dL [facility] Interpretation and review of laboratory results Abnormal [facility] MCH (RBC) [Entitic mass] 32.4 pg 26.0 - 34.0 pg [facility] MCHC (RBC) [Mass/Vol] 36.3 g/dL High 30.5 - 36.0 g/dL [facility] MCV (RBC) [Entitic vol] 89.5 fL 80.0 - 100.0 fL [facility] Nucleated RBC (Bld) [#/Vol] NINF [facility] Platelet mean volume (Bld) [Entitic vol] 10.4 fL 9.0 - 12.7 fL [facility] Platelets (Bld) [#/Vol] 236 10*3/uL [facility] RBC (Bld) [#/Vol] 3.70 10*6/uL Low 3.90 - 5.2 0 m/uL [facility] WBC (Bld) [#/Vol] 8.91 10*3/uL [facility] Erythrocyte distribution width (RBC) [Ratio] 11.9 % Normal 11.5-15.0 [facility] Comment on above: Order Comment: Speci men Type: BLOOD SPECIMENOrdering Facility: [facility] Address: [address] [place] [address] Performed By: #### 5 8410-2 ####[facility] LABCLIA [id number] [place] [address] [place] Hematocrit (Bld) [Volume fraction] 33.1 % Low 36.0-46.0 [facility] Comment on above: Order Comment: Speci men Type: BLOOD SPECIMENOrdering Facility: [facility] Address: [address] [place] [address] Performed By: #### 5 8410-2 ####[facility] LABCLIA [id number] [place] [address] [place] Hemoglobin (Bld) [Mass/Vol] 12.0 g/dL Normal 11.5-15.5 [facility] Comment on above: Order Comment: Speci men Type: BLOOD SPECIMENOrdering Facility: [facility] Address: [address] [place] [address] Performed By: #### 5 8410-2 ####[facility] LABCLIA [id number] [place] [address] [place] MCH (RBC) [Entitic mass] 32.4 pg Normal 26.0-34.0 [facility] Comment on above: Order Comment: Speci men Type: BLOOD SPECIMENOrdering Facility: [facility] Address: [address] [place] [address] Performed By: #### 5 8410-2 ####[facility] LABCLIA [id number] [place] [address] [place] MCHC (RBC) [Mass/Vol] 36.3 g/dL High 30.5-36.0 [facility] Comment on above: Order Comment: Speci men Type: BLOOD SPECIMENOrdering Facility: [facility] Address: [address] [place] [address] Performed By: #### 5 8410-2 ####[facility] LABIA [id number] [place] [address] [place] MCV (RBC) [Entitic vol] 89.5 fL Normal 80.0-100.0 [facility] Comment on above: Order Comment: Speci men Type: BLOOD SPECIMENOrdering Facility: [facility] Address: [address] [place] [address] Performed By: #### 5 8410-2 ####[facility] LABIA [id number] [place] [address] [place] Nucleated RBC (Bld) [#/Vol] 10*3/uL Normal <0.01 [facility] Comment on above: Order Comment: Speci men Type: BLOOD SPECIMENOrdering Facility: [facility] Address: [address] [place] [address] Performed By: #### 5 8410-2 ####[facility] LABIA [id number] [place] [address] [place] Platelet mean volume (Bld) [Entitic vol] 10.4 fL Normal 9.0-12.7 [facility] Comment on above: Order Comment: Speci men Type: BLOOD SPECIMENOrdering Facility: [facility] Address: [address] [place] [address] Performed By: #### 5 8410-2 ####[facility] LABIA [id number] [place] [address] [place] Platelets (Bld) [#/Vol] 236 10*3/uL Normal 150-400 [facility] Comment on above: Order Comment: Speci men Type: BLOOD SPECIMENOrdering Facility: [facility] Address: [address] [place] [address] Performed By: #### 5 8410-2 ####[facility] LABCLIA [id number] [place] [address] [place] RBC (Bld) [#/Vol] 3.70 10*6/uL Low 3.90-5.20 [facility] Comment on above: Order Comment: Speci men Type: BLOOD SPECIMENOrdering Facility: [facility] Address: [address] [place] [address] Performed By: #### 5 8410-2 ####[facility] LABCLIA [id number] [place] [address] [place] WBC (Bld) [#/Vol] 8.91 10*3/uL Normal 3.70-11.00 [facility] Comment on above: Order Comment: Speci men Type: BLOOD SPECIMENOrdering Facility: [facility] Address: [address] [place] [address] Performed By: #### 5 8410-2 ####[facility] LABIA [id number] [place] [address] [place] CNOVon 04-27-2024 CNOV Office Visit (INTMWS ) NATALI MONDRAGON ([id number]) 1950 F Date Time Provider Department 04/27/24 1:40 PM HUGO RO INTMWS During your visit today, we recorded the following information about you: Temperature Pulse Respiration Blood pressure 98.8 degrees 88/minute 18/minute 132/62 Weight Height 64.5 kg 1.422 m Hugo Ro MD 04/27/2024 4:28 PM Signed This note was created using Zenith Epigeneticsriter. Subjective Natali Mondragon is a 73 year [...] EKG RESULTS: (more content not included)... Normal [facility] Comprehensive metabolic 2000 panelon 04-27-2024 Albumin [Mass/Vol] 3.9 g/dL Normal 3.9-4.9 [facility] Comment on above: Order Comment: Speci men Type: BLOOD SPECIMENOrdering Facility: [facility] Address: [address] [place] [address] Performed By: #### 3 040-3, 22764-7 ####[facility] LABCLIA [id number] [place] [address] [place] ALP [Catalytic activity/Vol] 74 U/L Normal 34-123 [facility] Comment on above: Order Comment: Speci men Type: BLOOD SPECIMENOrdering Facility: [facility] Address: [address] [place] [address] Performed By: #### 3 040-3, 26682-9 ####[facility] LABCLIA [id number] [place] [address] [place] ALT [Catalytic activity/Vol] 12 U/L Normal 7-38 [facility] Comment on above: Order Comment: Speci men Type: BLOOD SPECIMENOrdering Facility: [facility] Address: [address] [place] [address] Performed By: #### 3 040-3, 79324-4 ####[facility] LABCLIA [id number] [place] [address] [place] Anion gap [Moles/Vol] 13 mmol/L Normal 8-15 [facility] Comment on above: Order Comment: Speci men Type: BLOOD SPECIMENOrdering Facility: [facility] Address: [address] [place] [address] Performed By: #### 3 040-3, 76324-4 ####[facility] LABCLIA [id number] [place] [id number] [place] AST [Catalytic activity/Vol] 13 U/L Normal 13-35 [facility] Comment on above: Order Comment: Speci men Type: BLOOD SPECIMENOrdering Facility: [facility] Address: [address] [place] [address] Performed By: #### 3 040-3, ####[facility] LABCLIA [id number] [place] [id number] [place] Bilirubin [Mass/Vol] 0.2 mg/dL Normal 0.2-1.3 [facility] Comment on above: Order Comment: Speci men Type: BLOOD SPECIMENOrdering Facility: [facility] Address: [address] [place] [address] Performed By: #### 3 040-3, ####[facility] LABCLIA [id number] [place] [address] [place] Calcium [Mass/Vol] 9.3 mg/dL Normal 8.5-10.2 [facility] Comment on above: Order Comment: Speci men Type: BLOOD SPECIMENOrdering Facility: [facility] Address: [address] [place] [address] Performed By: #### 3 040-3, ####[facility] LABCLIA [id number] [place] [address] [place] Chloride [Moles/Vol] 102 mmol/L Normal 98-107 [facility] Comment on above: Order Comment: Speci men Type: BLOOD SPECIMENOrdering Facility: [facility] Address: [address] [place] [address] Performed By: #### 3 040-3, 67011-1 ####[facility] LABCLIA [id number] [place] [address] [place] CO2 [Moles/Vol] 22 mmol/L Normal 22-30 [facility] Comment on above: Order Comment: Speci men Type: BLOOD SPECIMENOrdering Facility: [facility] Address: [address] [place] [address] Performed By: #### 3 040-3, 59589-4 ####[facility] LABIA [id number] [place] [id number] [place] Creatinine [Mass/Vol] 0.97 mg/dL High 0.58-0.96 [facility] Comment on above: Order Comment: Speci men Type: BLOOD SPECIMENOrdering Facility: [facility] Address: [address] [place] [address] Performed By: #### 3 040-3, 18274-4 ####[facility] LABIA [id number] [place] [address] [place] Creatinine and Glomerular filtration rate.predicted panel (S/P/Bld) 61 mL/min/1.73m??? Normal >=60 [facility] Comment on above: Order Comment: Niranjan donaldson Type: BLOOD SPECIMENOrdering Facility: [facility] Address: [address] [place] [address] Result Comment: Tika mated Glomerular Filtration Rate [...] actual GFR. Performed By: #### 3 040-3, 26456-6 ####[facility] LABIA [id number] [place] [id number] [place] Glucose [Mass/Vol] 101 mg/dL High 74-99 [facility] Comment on above: Order Comment: Navneeti men Type: BLOOD SPECIMENOrdering Facility: [facility] Address: [address] [place] [address] Result Comment: The [place] Diabetes Association (ADA) provides guidance for cutoff [...] Standards of Medical Care in Diabetes 2016, [place] [employer]. Diabetes Care. 2016.39(Suppl 1). Performed By: #### 3 3, ####[facility] LABCLIA [id number] [address] [address] [place] Potassium [Moles/Vol] 3.8 mmol/L Normal 3.7-5.1 [facility] Comment on above: Order Comment: Speci men Type: BLOOD SPECIMENOrdering Facility: [facility] Address: [address] [place] [address] Performed By: #### 3 , ####[facility] LABCLIA [id number] [place] [address] [place] Protein [Mass/Vol] 7.1 g/dL Normal 6.3-8.0 [facility] Comment on above: Order Comment: Navneeti men Type: BLOOD SPECIMENOrdering Facility: [facility] Address: [address] [place] [address] Performed By: #### 3 , ####[facility] LABCLIA [id number] [address] [address] [place] Sodium [Moles/Vol] 137 mmol/L Normal 136-144 [facility] Comment on above: Order Comment: Speci men Type: BLOOD SPECIMENOrdering Facility: [facility] Address: [address] [place] [address] Performed By: #### 3 , ####[facility] LABCLIA [id number] [address] [address] [place] Urea nitrogen [Mass/Vol] 13 mg/dL Normal 7-21 [facility] Comment on above: Order Comment: Speci men Type: BLOOD SPECIMENOrdering Facility: [facility] Address: [address] [place], [place] [address] Performed By: #### 3 040-3, 96788-3 ####[facility] LABCLIA [id number] [place] [address] [place] [id number] 04-27-2024 ECG01 Ventricular Rate : 8 4 BPM Atrial Rate : 84 BPM P-R Interval : 128 ms QRS Duration : 78 ms Q-T Interval : 382 ms QTC Calculation(Bazett) : 451 ms Calculated P [place] : 60 degrees Calculated R [place] : 66 degrees Calculated T [place] : 40 degrees NORMAL SINUS RHYTHM NORMAL ECG Confirmed by THEA CONNOLLY DO ([id number]) on 04/30/2024 2:48:42 PM NAME : NATALI MONDRAGON PID : [id number] : 1950 Gender : Female Race : ORD : Procedure Date : Apr 27 2024 14:28:25 Edit Date : Apr 30 2024 14:48:46 Diagnosis: NORMAL SINUS RHYTHM NORMAL ECG Confirmed by THEA CONNOLLY DO ([id number]) on 04/30/2024 2:48:42 PM Test Reason : Location : 185 : [facility] Overread By : THEA CONNOLLY DO Edited By : THEA CONNOLLY DO Referred By : Hugo Ro Acquired by : phil, Normal [facility] Lipase SerPl-cCncon 04-27-20 24 Lipase [Catalytic activity/Vol] 29 U/L Normal 16-61 [facility] Comment on above: Order Comment: Speci men Type: BLOOD SPECIMENOrdering Facility: [facility] Address: [address] [place] [address] Performed By: #### 3 040-3, 98343-5 ####[facility] LABCLIA [id number] [place] [address] [place] UA DIP, URINE (POC)on 2023 BILIRUBIN UA (POCT) Negative Negative [facility] CLARITY UA (POCT) Clear [facility] COLOR UA (POCT) Yellow [facility] GLUCOSE UA (POCT) Negative Negative mg/dL [facility] Hemoglobin Ql (U) Negative Negative [facility] KETONE UA (POCT) Negative Negative mg/dL [facility] LEUKOCYTES UA (POCT) Negative Negative [facility] NITRITE UA (POCT) Negative Negative [facility] PH UA (POCT) 6.5 4.5 - 8.0 [facility] Protein Ql (U) Negative Negative mg/dL [facility] SPECIFIC GRAVITY UA (POCT) 1.010 1.005 - 1.030 [facility] UROBILINOGEN UA (POCT) 0.2 Nelly l E.U./dL [facility] Location:[facility], [address] [place] [address], [place], [place], [id number] [place] [address] POINT OF CARE [facility] CNOVon 04-19-2024 CNOV Office Visit (UCWSTR ) NATALI MONDRAGON [place] ([id number]) 1950 F Date Time Provider Department 04/19/24 5:00 PM FRANCINE CALLAWAY [facility] During your visit today, we recorded the following information about you: Temperature Pulse Respiration Blood pressure 98.8 degrees 88/minute 22/minute 142/78 Weight 65 kg Fracnine Callaway APRN.CNP 04/19/2024 5:50 PM Signed This note was created using [employer]. Subjective Natali Mondragon is a 73 year [...] ONDANSETRON 4 MG DISINTEGRATING TABLET Francine Callaway APRN.ART SALES CONSULTANT Allergies As of Date: 04/19/2024 (No Known Allergies) Date Reviewed: 04/19/2024 Reviewed by: Francine Callaway APRN.ART SALES CONSULTANT - Fully Assessed Reason for Visit: Cough [28] Cmt: Nausea, SOB, cough, exposure x 6 days Primary Visit Diagnosis:Nausea [R11.0] Order(s):XR CHEST 2V FRONTAL/LAT [[id number]] Order #: [id number] FUTURE ondansetron orally disintegrating (ZOFRAN ODT) 4 [...] 02/22/2019 Kn (more content not included)... Normal [facility] XR CHEST 2V FRONTAL/LATon XR CHEST [...] degenerative changes. IMPRESSION: No acute radiographic abnormality. Procurement Inspector: ERMIAS Transcribe Date/Time: Apr 19 2024 5:41P Dictated by : MURALI CARRILLO MD This examination was interpreted and the report reviewed and electronically signed by: MURALI CARRILLO MD on Apr 19 2024 5:42PM EST [id number] Normal [facility] XR Chest PA and Lateralon IMPRESSION: No acute radiographic abnormality. Procurement Inspector: ERMIAS Transcribe Date/Time: Apr 19 2024 5:41P [...] and degenerative changes. DIVISION OF RADIOLOGY Provider, [facility] - 04/19/2024 * * *Final Report* * [...] changes. IMPRESSION IMPRESSION: No acute radiographic abnormality. Procurement Inspector: ERMIAS Transcribe Date/Time: Apr 19 2024 5:41P Dictated by : MURALI CARRILLO MD This examination was interpreted and the report reviewed and electronically signed by: MURALI CARRILLO MD on Apr 19 2024 5:42PM EST [facility] Radiology Study observation (narrative) [facility] XR Chest PA and LateralOrder ed By: Ccf Provider on 04-19-2024 [facility] XR Ribs - right Views and Ch est PAon 10-10-2023 IMPRESSION: No acute radiographic abnormality. Procurement Inspector: PSCB Transcribe Date/Time: Oct 10 2023 8:26A Dictated by : MARYLOU HWANG MD This examination was interpreted and the report reviewed and electronically signed by: MARYLOU HWANG MD on Oct 10 2023 8:29AM EST DIVISION OF RADIOLOGY * * *Final [...] No acute fracture DIVISION OF RADIOLOGY Provider, [facility] - 10/10/2023 * * *Final Report* * [...] fracture IMPRESSION IMPRESSION: No acute radiographic abnormality. Procurement Inspector: [facility] Transcribe Date/Time: Oct 10 2023 8:26A Dictated by : MARYLOU HWANG MD This examination was interpreted and the report reviewed and electronically signed by: MARYLOU HWANG MD on Oct 10 2023 8:29AM EST [facility] Radiology Study observation (narrative) [facility] XR Ribs - right Views and Ch est PAOrdered By: Cc Provider on 10-10-2023 [facility] Cytology report of Body flui d Cyto stainOrdered By: Diane Pacheco on 01-04-2023 Cytology report Cyto stain Doc (Body fld) SEE PATHOLOGY REPORT [facility] Comment on above: Specimen submitted t o Anatomical Pathology Department for testing. Basophil percentageOrdered B y: Dr. Pacheco on 12-15-2022 Chloride [Moles/Vol] 111 mmol/L 98-107 [facility] Glucose [Mass/Vol] 99 mg/dL 74-106 [facility] Potassium [Moles/Vol] 3.9 mmol/L 3.5-5.1 [facility] Sodium [Moles/Vol] 140 mmol/L 136-145 [facility] Laboratory - Chemistry and C hemistry - challengeOrdered By: Dr. Pacheco on 12-15-2022 CO2 [Moles/Vol] 25.0 mmol/L 21.0-32.0 [facility] Urea nitrogen/Creatinine [Mass ratio] 27.5 mg/mg 10-20 [facility] No Panel InformationOrdered By: Dr. Pacheco on 12-15-2022 Estimated GFR (MDRD) Amer 101 mL/min >60 [facility] Comment on above: GFR Calc Estimated GFR (MDRD) Non-Af Amer 83 mL/min >60 [facility] Comment on above: Non- GFR Calc Serum or plasma calcium lucian urement (mass/volume)Ordered By: Dr. Pacheco on 12-15-2022 Calcium [Mass/Vol] 9.6 mg/dL 8.5-10.1 [facility] Serum or plasma creatinine m easurement (mass/volume)Ordered By: Dr. Pacheco on 12-15-2022 Creatinine [Mass/Vol] 0.73 mg/dL 0.55-1.02 [facility] Comment on above: The validity of the calculated GFR & GFRAA in patients over 70 years has not been determined. Clinical correlation is essential. Serum or plasma urea nitroge n measurement (mass/volume)Ordered By: Dr. Pacheco on 12-15-2022 Urea nitrogen [Mass/Vol] 20 mg/dL 7-18 [facility] Thin prep Papanicolaou smear with manual screeningOrdered By: Dr. Pacheco on 12-15-2022 Thin prep Papanicolaou smear with manual screening 4 -15 [facility] UA DIP, URINE (POC)on 2022 BILIRUBIN UA (POCT) Negative Negative [facility] CLARITY UA (POCT) Clear [facility] COLOR UA (POCT) Yellow [facility] GLUCOSE UA (POCT) Negative Negative mg/dL [facility] HEMOGLOBIN/BLOOD UA (POCT) Trace-lysed Abnormal Negative [facility] KETONE UA (POCT) Negative Negative mg/dL [facility] LEUKOCYTES UA (POCT) Negative Negative [facility] NITRITE UA (POCT) Negative Negative [facility] PH UA (POCT) 5.5 4.5 - 8.0 [facility] Protein Ql (U) Negative Negative mg/dL [facility] SPECIFIC GRAVITY UA (POCT) 1.020 1.005 - 1.030 [facility] UROBILINOGEN UA (POCT) 0.2 E.U./dL Nelly l E.U./dL [facility] XR LUMBAR GENERAL 3V AP/LAT/ L5-S1on 12-13-2022 [facility] XR Lumbar spine 3 Viewson IMPRESSION: No acute fracture. Degenerative disease of the lumbar spine. Procurement Inspector: PSCB Transcribe Date/Time: Dec 13 2022 10:24A Dictated by : MARYLOU HWANG MD This examination was interpreted and the report reviewed and electronically signed by: MARYLOU HWANG MD on Dec 13 2022 10:26AM [facility] DIVISION OF RADIOLOGY * * *Final Report* [...] joints appear normal. DIVISION OF RADIOLOGY Provider, Daniel stovall [facility] - 12/13/2022 * * *Final Report* * [...] fracture. Degenerative disease of the lumbar spine. Procurement Inspector: ERMIAS Transcribe Date/Time: Dec 13 2022 10:24A Dictated by : MARYLOU HWANG MD This examination was interpreted and the report reviewed and electronically signed by: MARYLOU HWANG MD on Dec 13 2022 10:26AM EST [facility] Radiology Study observation (narrative) [facility] XR Lumbar spine 3 ViewsOrder ed By: Ccf Provider on 12-13-2022 [facility] HARSHIL SCREENINGon 06-23-2022 [facility] XR SHOULDER GENERAL 3V OR MO RE AP/TRUE AP/OTHER LEFTon 12-10-2021 [facility] XR Shoulder - left 3 Viewson 12-10-2021 IMPRESSION: Moderate glenohumeral osteoarthritis with joint bodies. Procurement Inspector: PSCChris Transcribe Date/Time: Dec 10 2021 12:20P Dictated by : ELLIOTT GAMEZ DO This examination was interpreted and the report reviewed and electronically signed by: ELLIOTT GAMEZ DO on Dec 10 2021 12:25PM EST JanieZZ_DO_NOT_U SE_DIVISION OF RADIOLOGY * * *Final Report* [...] granulomatous disease. ZZZ_DO_NOT_U SE_DIVISION OF RADIOLOGY Provider, [facility] - 12/10/2021 * * *Final Report* * [...] IMPRESSION: Moderate glenohumeral osteoarthritis with joint bodies. Procurement Inspector: ERMIAS Transcribe Date/Time: Dec 10 2021 12:20P Dictated by : ELLIOTT GAMEZ DO This examination was interpreted and the report reviewed and electronically signed by: ELLIOTT GAMEZ DO on Dec 10 2021 12:25PM EST [facility] Radiology Study observation (narrative) [facility] XR Shoulder - left 3 ViewsOr dered By: Ccf Provider on 12-10-2021 [facility] Basophil percentageon 2021 WBC (Bld) [#/Vol] 9.1 10*3/uL 4.4-11.0 [facility]: Blood erythrocytes count (nu mber/volume)on 10-14-2021 RBC (Bld) [#/Vol] 4.61 10*6/uL 4.2-5.4 [facility]: Blood hemoglobin measurement (mass/volume)on 10-14-2021 Hemoglobin (Bld) [Mass/Vol] 13.3 g/dL 12.0-15.0 [facility] Work Phone: [phone] Blood platelet mean volumeon 10-14-2021 Platelet mean volume (Bld) [Entitic vol] 9.3 fL 6.2-12.0 [facility] Work Phone: Determination of erythrocyte mean corpuscular volume (MCV)on 10-14-2021 MCV (RBC) [Entitic vol] 85.7 fL 81-99 [facility] Work Phone: [phone] Hematocrit Auto (Bld) [Volum e fraction]on 10-14-2021 Hematocrit (Bld) [Volume fraction] 39.5 % 37-47 [facility] Work Phone: Laboratory - Hematology and Cell countson 10-14-2021 Erythrocyte distribution width (RBC) [Entitic vol] 39.9 fL 35.1-43.9 [facility] Work Phone: Erythrocyte distribution width (RBC) [Ratio] 12.9 % 11.6-14.6 [facility] Work Phone: MCH (RBC) [Entitic mass] 28.9 pg 27.0-32.0 [facility] Work Phone: MCHC Auto (RBC) [Mass/Vol]on 10-14-2021 MCHC (RBC) [Mass/Vol] 33.7 g/dL 32-36 [facility] Work Phone: Platelets bldon 10-14-2021 Platelets (Bld) [#/Vol] 286 10*3/uL 150-450 [facility] Work Phone: No Panel Informationon 10-07 Miscellaneous Test Comment MAILED SPECIMEN [facility] Work Phone: Basophil percentageon 2021 Creatinine [Mass/Vol] 0.6 mg/dL 0.55-1.02 [facility] Work Phone: No Panel Informationon 09-23 Bedside Estimated GFR (eGFR) > 60.0000 mL/min >60 [facility] Work Phone: XR Knee - left AP and Latera mariama 02-03-2021 IMPRESSION: Osteoarthrosis of the left knee. Knee joint effusion. Procurement Inspector: PSCB Transcribe Date/Time: Feb 03 2021 3:18P Dictated by : SILVIO STINSON MD This examination was interpreted and the report reviewed and electronically signed by: SILVIO STINSON MD on Feb 03 2021 3:18PM [facility] DIVISION OF RADIOLOGY * * *Final Report* [...] Knee joint effusion. DIVISION OF RADIOLOGY Provider, [facility] * * *Final Report* [...] of the left knee. Knee joint effusion. Procurement Inspector: ERMIAS Transcribe Date/Time: Feb 03 2021 3:18P Dictated by : SILVIO STINSON MD This examination was interpreted and the report reviewed and electronically signed by: SILVIO STINSON MD on Feb 03 2021 3:18PM EST [facility] Radiology Study observation (narrative) [facility] XR Knee - left AP and Latera lOrdered By: Ccf Provider on 02-03-2021 [facility] XR Knee - left 4 Viewson IMPRESSION: No acute fracture, malalignment or joint effusion. Procurement Inspector: [employer] Transcribe Date/Time: Jun 18 2020 6:40P Dictated by : ALEKSANDR MCDONALD MD This examination was interpreted and the report reviewed and electronically signed by: ALEKSANDR MCDONALD MD on Jun 18 2020 6:42PM [facility] DIVISION OF RADIOLOGY * * *Final Report* [...] the intercondylar fossa. DIVISION OF RADIOLOGY Provider, Daniel [facility] - 06/18/2020 * * *Final Report* * [...] No acute fracture, malalignment or joint effusion. [facility] Transcribe Date/Time: Jun 18 2020 6:40P Dictated by : ALEKSANDR MCDONALD MD This examination was interpreted and the report reviewed and electronically signed by: ALEKSANDR MCDONALD MD on Jun 18 2020 6:42PM EST [facility] Radiology Study observation (narrative) [facility] XR Knee - left 4 ViewsOrdere d By: [facility] Provider on 06-18-2020 [facility] Vital Signs Date Time Vital Sign Value Performing Clinician Amii arvind 02-22-2025 09:47-0400 Body mass index (BMI) [Ratio] 33.35 kg/m2 Hugo Ro MD Work Phone: [facility] 02-22-2025 09:47-0400 Body weight 68.2 kg Hugo Ro MD Work Phone: [facility] 02-22-2025 09:47-0400 Diastolic blood pressure 76 mm[Hg] Hugo Ro MD Work Phone: [facility] 02-22-2025 09:47-0400 Heart rate 92 /min Hugo Ro MD Work Phone: [facility] 02-22-2025 09:47-0400 Respiratory rate 16 /min Hugo Ro MD Work Phone: [facility] 02-22-2025 09:47-0400 Systolic blood pressure 134 mm[Hg] Hugo Ro MD Work Phone: [facility] 02-20-2025 08:36-0400 Body temperature 97.2 [degF] Dr. Hugo Ro MD Work Phone: [facility] 02-20-2025 08:36-0400 Diastolic blood pressure 84 mm[Hg] Dr. Hugo Ro MD Work Phone: [facility] 02-20-2025 08:36-0400 Heart rate 79 /min Dr. Hugo Ro MD Work Phone: [facility] 02-20-2025 08:36-0400 Respiratory rate 16 /min Dr. Hugo Ro MD Work Phone: [facility] 02-20-2025 08:36-0400 SaO2% (BldA) [Mass fraction] 98 % Dr. Hugo Ro MD Work Phone: [facility] 02-20-2025 08:36-0400 Systolic blood pressure 101 mm[Hg] Dr. Hugo Ro MD Work Phone: [facility] 02-20-2025 06:59-0400 Body height 144.[address] Hugo Ro MD Work Phone: [facility] 02-20-2025 06:59-0400 Body mass index (BMI) [Ratio] 31.4 kg/m2 Dr. Hugo Ro MD Work Phone: 6(786)637-764924 [place] [address] 02-20-2025 06:59-0400 Body weight [address] Hugo Ro MD Work Phone: 8(348)116-061779 [place] [address] 02-01-2025 10:20-0400 Body height 144.[address] Hugo Ro MD Work Phone: 0(079)108-966279 [place] [address] 02-01-2025 10:20-0400 Body mass index (BMI) [Ratio] 32.2 kg/m2 Dr. Hugo Ro MD Work Phone: 5(545)847-340279 [place] [address] 02-01-2025 10:20-0400 Body weight 67.[address] Hugo Ro MD Work Phone: 5(473)844-860579 [place] [address] 02-01-2025 10:20-0400 Diastolic blood pressure 56 mm[Hg] Dr. Hugo Ro MD Work Phone: 9(621)828-353279 [place] [address] 02-01-2025 10:20-0400 Respiratory rate 16 /min Dr. Hugo Ro MD Work Phone: 0(890)189-225079 [place] [address] 02-01-2025 10:20-0400 Systolic blood pressure 130 mm[Hg] Dr. Hugo Ro MD Work Phone: 0(416)105-098479 [place] [address] 01-25-2025 09:01-0400 Body height 144.[address] Hugo Ro MD Work Phone: 1(186)196-679979 [place] [address] 01-25-2025 09:01-0400 Body mass index (BMI) [Ratio] 32.1 kg/m2 Dr. Hugo Ro MD Work Phone: 4(129)452-714179 [place] [address] 01-25-2025 09:01-0400 Body weight 67.[address] Hugo Ro MD Work Phone: 5(879)477-298979 [place] [address] 01-25-2025 09:01-0400 Diastolic blood pressure 81 mm[Hg] Dr. Hugo Ro MD Work Phone: 1(126)179-545679 [place] [address] 01-25-2025 09:01-0400 Systolic blood pressure 127 mm[Hg] Dr. Hugo Ro MD Work Phone: 1(600)532-076479 [place] [address] 09-10-2024 12:36-0500 Body height 143 cm Marivel Yvonne HOUSE SERVANT.ART SALES CONSULTANT Work Phone: [facility] 09-10-2024 12:36-0500 Body mass index (BMI) [Ratio] 32.62 kg/m2 Marivel Yvonne HOUSE SERVANT.ART SALES CONSULTANT Work Phone: [facility] 09-10-2024 12:36-0500 Body weight 66.7 kg Marivel Yvonne HOUSE SERVANT.ART SALES CONSULTANT Work Phone: [facility] 09-10-2024 12:36-0500 Diastolic blood pressure 80 mm[Hg] Marivel Yvonne HOUSE SERVANT.ART SALES CONSULTANT Work Phone: [facility] 09-10-2024 12:36-0500 Heart rate 84 /min Marivel Yvonne HOUSE SERVANT.ART SALES CONSULTANT Work Phone: [facility] 09-10-2024 12:36-0500 Respiratory rate 12 /min Marivel Yvonne HOUSE SERVANT.ART SALES CONSULTANT Work Phone: [facility] 09-10-2024 12:36-0500 SaO2% (BldA) [Mass fraction] 96 % Marivel Yvonne HOUSE SERVANT.ART SALES CONSULTANT Work Phone: [facility] 09-10-2024 12:36-0500 Systolic blood pressure 132 mm[Hg] Marivel Yvonne HOUSE SERVANT.ART SALES CONSULTANT Work Phone: [facility] 08-16-2024 10:30-0500 Body mass index (BMI) [Ratio] 32.82 kg/m2 Hugo Ro MD Work Phone: [facility] 08-16-2024 10:30-0500 Body temperature 98.01 [degF] Hugo Ro MD Work Phone: [facility] 08-16-2024 10:30-0500 Body weight 66.4 kg Hugo Ro MD Work Phone: [facility] 08-16-2024 10:30-0500 Diastolic blood pressure 62 mm[Hg] Hugo Ro MD Work Phone: [facility] 08-16-2024 10:30-0500 Heart rate 84 /min Hugo Ro MD Work Phone: [facility] 08-16-2024 10:30-0500 Respiratory rate 20 /min Hugo Ro MD Work Phone: [facility] 08-16-2024 10:30-0500 Systolic blood pressure 118 mm[Hg] Hugo Ro MD Work Phone: [facility] 08-13-2024 17:55-0500 Body mass index (BMI) [Ratio] 33.41 kg/m2 Maurice Kaur APRN.ART SALES CONSULTANT Work Phone: [facility] 08-13-2024 17:55-0500 Body temperature 100.4 [degF] Maurice Kaur APRN.ART SALES CONSULTANT Work Phone: [facility] 08-13-2024 17:55-0500 Body weight 67.6 kg Maurice Kaur APRN.ART SALES CONSULTANT Work Phone: [facility] 08-13-2024 17:55-0500 Diastolic blood pressure 76 mm[Hg] Maurice Kaur APRN.ART SALES CONSULTANT Work Phone: [facility] 08-13-2024 17:55-0500 Heart rate 94 /min Maurice Kaur APRN.ART SALES CONSULTANT Work Phone: [facility] 08-13-2024 17:55-0500 Respiratory rate 20 /min Maurice Kaur APRN.ART SALES CONSULTANT Work Phone: [facility] 08-13-2024 17:55-0500 SaO2% (BldA) [Mass fraction] 96 % Maurice Kaur APRN.ART SALES CONSULTANT Work Phone: [facility] 08-13-2024 17:55-0500 Systolic blood pressure 120 mm[Hg] Maurice Kaur APRN.ART SALES CONSULTANT Work Phone: [facility] 05-11-2024 08:20-0400 Body mass index (BMI) [Ratio] 32.97 kg/m2 Hugo Ro MD Work Phone: [facility] 05-11-2024 08:20-0400 Body weight 66.7 kg Hugo Ro MD Work Phone: [facility] 05-11-2024 08:20-0400 Diastolic blood pressure 72 mm[Hg] Hugo Ro MD Work Phone: [facility] 05-11-2024 08:20-0400 Heart rate 83 /min Hugo Ro MD Work Phone: [facility] 05-11-2024 08:20-0400 SaO2% (BldA) [Mass fraction] 97 % Hugo Ro MD Work Phone: [facility] 05-11-2024 08:20-0400 Systolic blood pressure 126 mm[Hg] Hugo Ro MD Work Phone: [facility] 04-27-2024 13:48-0400 Body height 142.2 cm Hugo Ro MD Work Phone: [facility] 04-27-2024 13:48-0400 Body mass index (BMI) [Ratio] 31.88 kg/m2 Hugo Ro MD Work Phone: [facility] 04-27-2024 13:48-0400 Body temperature 98.8 [degF] Hugo Ro MD Work Phone: [facility] 04-27-2024 13:48-0400 Body weight 64.5 kg Hugo Ro MD Work Phone: [facility] 04-27-2024 13:48-0400 Diastolic blood pressure 62 mm[Hg] Hugo Ro MD Work Phone: [facility] 04-27-2024 13:48-0400 Heart rate 88 /min Hugo Ro MD Work Phone: [facility] 04-27-2024 13:48-0400 Respiratory rate 18 /min Hugo Ro MD Work Phone: [facility] 04-27-2024 13:48-0400 SaO2% (BldA) [Mass fraction] 94 % Hugo Ro MD Work Phone: [facility] 04-27-2024 13:48-0400 Systolic blood pressure 132 mm[Hg] Hugo Ro MD Work Phone: [facility] 04-19-2024 17:02-0400 Body mass index (BMI) [Ratio] 31.79 kg/m2 Francine Moomaw HOUSE SERVANT.ART SALES CONSULTANT Work Phone: [facility] 04-19-2024 17:02-0400 Body temperature 98.8 [degF] Francine Moomaw HOUSE SERVANT.ART SALES CONSULTANT Work Phone: [facility] 04-19-2024 17:02-0400 Body weight 65 kg Francine Moomaw HOUSE SERVANT.ART SALES CONSULTANT Work Phone: [facility] 04-19-2024 17:02-0400 Diastolic blood pressure 78 mm[Hg] Francine Moomaw HOUSE SERVANT.ART SALES CONSULTANT Work Phone: [facility] 04-19-2024 17:02-0400 Heart rate 88 /min Francine Moomaw HOUSE SERVANT.ART SALES CONSULTANT Work Phone: [facility] 04-19-2024 17:02-0400 Respiratory rate 22 /min Francine Moomaw HOUSE SERVANT.ART SALES CONSULTANT Work Phone: [facility] 04-19-2024 17:02-0400 SaO2% (BldA) [Mass fraction] 99 % Francine Moomaw HOUSE SERVANT.ART SALES CONSULTANT Work Phone: [facility] 04-19-2024 17:02-0400 Systolic blood pressure 142 mm[Hg] Francine Moomaw HOUSE SERVANT.ART SALES CONSULTANT Work Phone: [facility] 01-18-2024 10:39-0400 Body mass index (BMI) [Ratio] 31.5 kg/m2 Hugo Ro MD Work Phone: [facility] 01-18-2024 10:39-0400 Body temperature 98.01 [degF] Hugo Ro MD Work Phone: [facility] 01-18-2024 10:39-0400 Body weight 64.41 kg Hugo Ro MD Work Phone: [facility] 01-18-2024 10:39-0400 Diastolic blood pressure 74 mm[Hg] Hugo Ro MD Work Phone: [facility] 01-18-2024 10:39-0400 Heart rate 84 /min Hugo Ro MD Work Phone: [facility] 01-18-2024 10:39-0400 Respiratory rate 18 /min Hugo Ro MD Work Phone: [facility] 01-18-2024 10:39-0400 Systolic blood pressure 120 mm[Hg] Hugo Ro MD Work Phone: [facility] 10-10-2023 07:32-0400 Body temperature 97.81 [degF] Latisha Athy PA-C Work Phone: [facility] 10-10-2023 07:32-0400 Body weight 72.1 kg Latisha Athy PA-C Work Phone: [facility] 10-10-2023 07:32-0400 Diastolic blood pressure 72 mm[Hg] Latisha Athy PA-C Work Phone: [facility] 10-10-2023 07:32-0400 Heart rate 84 /min Latisha Athy PA-C Work Phone: [facility] 10-10-2023 07:32-0400 Respiratory rate 18 /min Latisha Athy PA-C Work Phone: [facility] 10-10-2023 07:32-0400 SaO2% (BldA) [Mass fraction] 97 % Latisha Athy PA-C Work Phone: [facility] 10-10-2023 07:32-0400 Systolic blood pressure 122 mm[Hg] Latisha Athy PA-C Work Phone: [facility] 12-27-2022 17:46-0400 Diastolic blood pressure 77 mm[Hg] Hugo Ro MD Work Phone: [facility] 12-27-2022 17:46-0400 Heart rate 81 /min Hugo Ro MD Work Phone: [facility] 12-27-2022 17:46-0400 Systolic blood pressure 121 mm[Hg] Hugo Ro MD Work Phone: [facility] 12-27-2022 17:42-0400 Body temperature 99.1 [degF] Hugo Ro MD Work Phone: [facility] 12-27-2022 17:42-0400 Body weight 69.85 kg Hugo Ro MD Work Phone: [facility] 12-13-2022 09:39-0400 Body temperature 98.6 [degF] Latisha Athy PA-C Work Phone: [facility] 12-13-2022 09:39-0400 Body weight 68.04 kg Latisha Athy PA-C Work Phone: [facility] 12-13-2022 09:39-0400 Diastolic blood pressure 80 mm[Hg] Latisha Athy PA-C Work Phone: [facility] 12-13-2022 09:39-0400 Heart rate 94 /min Latisha Athy PA-C Work Phone: [facility] 12-13-2022 09:39-0400 Respiratory rate 21 /min Latisha Athy PA-C Work Phone: [facility] 12-13-2022 09:39-0400 SaO2% (BldA) [Mass fraction] 98 % Latisha Athy PA-C Work Phone: [facility] 12-13-2022 09:39-0400 Systolic blood pressure 124 mm[Hg] Latisha Athy PA-C Work Phone: [facility] 09-21-2022 12:32-0400 Body temperature 99.1 [degF] Maurice Kaur APRN.CNP Work Phone: [facility] 09-21-2022 12:32-0400 Body weight 68.95 kg Maurice Kaur HOUSE SERVANT.ART SALES CONSULTANT Work Phone: [facility] 09-21-2022 12:32-0400 Diastolic blood pressure 82 mm[Hg] Maurice Kaur HOUSE SERVANT.ART SALES CONSULTANT Work Phone: [facility] 09-21-2022 12:32-0400 Heart rate 102 /min Maurice Kaur HOUSE SERVANT.ART SALES CONSULTANT Work Phone: [facility] 09-21-2022 12:32-0400 Respiratory rate 18 /min Maurice Kaur HOUSE SERVANT.ART SALES CONSULTANT Work Phone: [facility] 09-21-2022 12:32-0400 SaO2% (BldA) [Mass fraction] 96 % Maurice Kaur HOUSE SERVANT.ART SALES CONSULTANT Work Phone: [facility] 09-21-2022 12:32-0400 Systolic blood pressure 140 mm[Hg] Maurice Kaur HOUSE SERVANT.ART SALES CONSULTANT Work Phone: [facility] 06-29-2022 15:08-0500 Body temperature 99.5 [degF] Les Steinbergaman HOUSE SERVANT.ART SALES CONSULTANT Work Phone: [facility] 06-29-2022 15:08-0500 Body weight 71.31 kg Les Steinbergaman HOUSE SERVANT.ART SALES CONSULTANT Work Phone: [facility] 06-29-2022 15:08-0500 Diastolic blood pressure 80 mm[Hg] Les Richard HOUSE SERVANT.ART SALES CONSULTANT Work Phone: [facility] 06-29-2022 15:08-0500 Heart rate 103 /min Les Pendlebury HOUSE SERVANT.ART SALES CONSULTANT Work Phone: [facility] 06-29-2022 15:08-0500 Respiratory rate 16 /min Les Pendlebury HOUSE SERVANT.ART SALES CONSULTANT Work Phone: [facility] 06-29-2022 15:08-0500 SaO2% (BldA) [Mass fraction] 97 % Les Elliottleaman HOUSE SERVANT.ART SALES CONSULTANT Work Phone: [facility] 06-29-2022 15:08-0500 Systolic blood pressure 126 mm[Hg] Les Ramos APRN.CNP Work Phone: [facility] 05-24-2022 18:02-0500 Body height 142.2 cm Hugo Ro MD Work Phone: [facility] 05-24-2022 18:02-0500 Body temperature 97.3 [degF] Hugo Ro MD Work Phone: [facility] 05-24-2022 18:02-0500 Body weight 70.31 kg Hugo Ro MD Work Phone: [facility] 05-24-2022 18:02-0500 Diastolic blood pressure 74 mm[Hg] Hugo Ro MD Work Phone: [facility] 05-24-2022 18:02-0500 Heart rate 92 /min Hugo Ro MD Work Phone: [facility] 05-24-2022 18:02-0500 Respiratory rate 20 /min Hugo Ro MD Work Phone: [facility] 05-24-2022 18:02-0500 Systolic blood pressure 124 mm[Hg] Hugo Ro MD Work Phone: [facility] 2021 09:00-0400 Diastolic blood pressure 76 mm[Hg] Thaddeus Shaw PT [facility] 2021 09:00-0400 Systolic blood pressure 120 mm[Hg] Thaddeus Shaw PT [facility] 12-10-2021 08:50-0400 Body temperature 97.5 [degF] Hugo Ro MD Work Phone: [facility] 12-10-2021 08:50-0400 Body weight 72.03 kg Hugo Ro MD Work Phone: [facility] 12-10-2021 08:50-0400 Diastolic blood pressure 72 mm[Hg] Hugo Ro MD Work Phone: [facility] 12-10-2021 08:50-0400 Heart rate 92 /min Hugo Ro MD Work Phone: [facility] 12-10-2021 08:50-0400 Respiratory rate 18 /min Hugo Ro MD Work Phone: [facility] 12-10-2021 08:50-0400 Systolic blood pressure 110 mm[Hg] Hugo Ro MD Work Phone: [facility] 10-14-2021 14:49-0400 Body temperature 99.3 [degF] Dr. Hugo Ro Work Phone: [facility] Work Phone: 10-14-2021 14:49-0400 Diastolic blood pressure 68 mm[Hg] Dr. Hugo Ro Work Phone: [facility] Work Phone: 10-14-2021 14:49-0400 Heart rate 68 /min Dr. Hugo Ro Work Phone: [facility] Work Phone: 10-14-2021 14:49-0400 Respiratory rate 16 /min Dr. Hugo Ro Work Phone: [facility] Work Phone: 10-14-2021 14:49-0400 SaO2% (BldA) [Mass fraction] 93 % Dr. Hugo Ro Work Phone: [facility] Work Phone: 10-14-2021 14:49-0400 Systolic blood pressure 132 mm[Hg] Dr. Hugo Ro Work Phone: [facility] Work Phone: 10-14-2021 11:36-0400 Body height 144.[address] Hugo Ro Work Phone: [facility] Work Phone: 10-14-2021 11:36-0400 Body mass index (BMI) [Ratio] 34.3 kg/m2 Dr. Hugo Ro Work Phone: [facility] Work Phone: 10-14-2021 11:36-0400 Body weight [address] Hugo Ro Work Phone: [facility] Work Phone: 10-07-2021 13:11-0400 Body mass index (BMI) [Ratio] 34.4 kg/m2 Dr. Hugo Ro Work Phone: [facility] Work Phone: 10-07-2021 13:11-0400 Body weight 72.[address] Hugo Ro Work Phone: [facility] Work Phone: 10-07-2021 13:11-0400 Diastolic blood pressure 80 mm[Hg] Dr. Hugo Ro Work Phone: [facility] Work Phone: 10-07-2021 13:11-0400 Systolic blood pressure 136 mm[Hg] Dr. Hugo Ro Work Phone: [facility] Work Phone: Encounters Encounter Date Encounter Type Care Provider Facility Start: 03-21-2025 ambulatory Hugo Ro Facili ty:[facility] Start: 03-11-2025 Encounter for other preprocedural examination [facility] Start: 02-22-2025 End: 02-22-2025 Office outpatient visit 25 minutes Hugo Ro MD Work Phone: [facility] [place] Comment on above: Marijuana dependence (HCC) (Primary Dx); Essential hypertension; Hyperlipidemia, unspecified hyperlipidemia type; Gastroesophageal reflux disease, unspecified whether esophagitis present; Anxiety; Depression, unspecified depression type; Tubular adenoma; Right inguinal hernia Start: 02-22-2025 End: 02-22-2025 ambulatory HUGO RO Facility:[facility] Start: 02-20-2025 Non-patient / Non-visit Dr. Parag Zapien MD -[facility] Start: 02-20-2025 End: 02-20-2025 Admission to same day surgery center Dr. Crys Zapien MD -Endoscopy Work Phone: Start: 02-20-2025 End: 02-20-[address] Hugo Ro MD Work Phone: -Endoscopy Start: 02-01-2025 End: 02-01-[address] Crys Zapien MD -[facility] Work Phone: Start: 02-01-2025 End: 02-01-[address] Hugo Ro MD Work Phone: -[facility] Start: 01-25-2025 End: 01-25-[address] Hugo Ro MD Work Phone: -Laboratory Specimen Start: 01-25-2025 End: 01-25-[address] Kay Felton DO -Laboratory Specimen Work Phone: Start: 01-25-2025 Encounter for gynecological examination (general) (routine) without abnormal findings [facility] Start: 01-25-2025 End: 01-25-[address] Kay Felton DO -[facility] Work Phone: Start: 01-25-2025 End: 01-25-[address] Kay Felton DO [facility] Start: 01-25-2025 End: 01-25-[address] Hugo Ro MD Work Phone: -[facility] Start: 01-25-2025 End: 01-25-2025 ambulatory Hugo Ro Facility:[facility] Start: 01-08-2025 Non-patient / Non-visit Dr. Diane mcgowan MD -[facility] Work Phone: Start: 10-26-2024 End: 10-26-2024 ambulatory Thaddeus Shaw PT Work Phone: [facility] Comment on above: Acute pain of left k nee (Primary Dx) Start: 09-27-2024 End: 09-27-2024 ambulatory Thaddeus Shaw PT Work Phone: [facility] Comment on above: Acute pain of left k nee; Injury of left knee, initial encounter Start: 09-14-2024 End: 09-17-2024 Follow-up encounter Marivel Dash APRN.ART SALES CONSULTANT Work Phone: [facility] [place] Comment on above: Acute pain of left k nee (Primary Dx); Injury of left knee, initial encounter Start: 09-10-2024 End: 09-10-2024 Subsequent hospital visit by physician [facility] Work Phone: Radiology Comment on above: Acute pain of left k nee [M25.562] Start: 09-10-2024 End: 09-10-2024 ambulatory MARIVEL DASH Facility:[facility] Start: 09-10-2024 End: 09-10-2024 Patient encounter procedure Marivel Dash HOUSE SERVANT.ART SALES CONSULTANT Work Phone: [facility] [place] Comment on above: Medicare annual well ness visit, subsequent (Primary Dx); Urinary frequency; Acute pain of left knee; Injury of left knee, initial encounter; Essential hypertension; Anxiety; Depression, unspecified depression type Start: 08-16-2024 End: 08-16-2024 ambulatory HUGO RO Facility:[facility] Start: 08-16-2024 End: 08-16-2024 Office outpatient visit 15 minutes Hugo Ro MD Work Phone: [facility] [place] Comment on above: Right inguinal herni a (Primary Dx); Nausea and vomiting, unspecified vomiting type; Essential hypertension Start: 08-13-2024 End: 08-14-2024 Emergency department patient visit Seferino Rosa Facility:[facility] Start: 08-13-2024 End: 08-13-2024 ambulatory HUGO RO Facility:[facility] Start: 08-13-2024 End: 08-13-2024 Patient encounter procedure Maurice Kaur APRN.CNP Work Phone: [facility] Comment on above: Nausea and vomiting, unspecified vomiting type (Primary Dx); Diarrhea, unspecified type Start: 08-08-2024 End: 08-08-2024 ambulatory Hugo Ro Facility:[facility] Start: 08-03-2024 End: 08-03-2024 ambulatory Kay Shannon Cronin Facility:[facility] Start: 07-23-2024 ambulatory Kay Shannon Cronin Fa cility:[facility] Start: 06-08-2024 End: 06-08-2024 ambulatory Kay Felton Facility:[facility] Start: 05-11-2024 End: 05-11-2024 ambulatory HUGO RO Facility:[facility] Start: 05-11-2024 End: 05-11-2024 Patient encounter procedure Hugo Ro MD Work Phone: [facility] [place] Comment on above: Nausea and vomiting, unspecified vomiting type (Primary Dx); Essential hypertension Start: 05-07-2024 End: 05-07-2024 ambulatory Hugo Ro Facility:[facility] Start: 05-07-2024 End: 05-07-2024 ambulatory Hugo Ro Facility:[facility] Start: 04-27-2024 End: 04-27-2024 ambulatory HUGO RO Facility:[facility] Start: 04-27-2024 End: 04-27-2024 ambulatory HUGO RO Facility:[facility] Start: 04-27-2024 End: 04-27-2024 Office outpatient visit 25 minutes Hugo Ro MD Work Phone: [facility] [place] Comment on above: Nausea and vomiting, unspecified vomiting type (Primary Dx); Epigastric pain; Dyspnea, unspecified type; Dehydration Start: 04-19-2024 End: 04-19-2024 Subsequent hospital visit by physician [facility] Work Phone: Radiology Comment on above: Nausea [R11.0] Start: 04-19-2024 End: 04-19-2024 ambulatory HUGO RO Facility:[facility] Start: 04-19-2024 End: 04-19-2024 Patient encounter procedure Francine Callaway APRNLuART SALES CONSULTANT Work Phone: [facility] Comment on above: Nausea (Primary Dx) Start: 01-20-2024 ambulatory Sobia Sihrley [facility] Start: 01-20-2024 Patient encounter procedure Sobia Casper MACHUCA [facility] [place] [facility] Comment on above: Population Health Na vigation Outreach ([place]ober[facility] Med Adherence) Start: 01-18-2024 End: 01-18-2024 Patient encounter procedure Hugo Ro MD Work Phone: [facility] [place] Comment on above: Essential hypertensi on; Gastroesophageal reflux disease, unspecified whether esophagitis present; Anxiety; Depression, unspecified depression type Start: 01-05-2024 Refill Hugo short MD Work Phone: [facility] [place] Comment on above: Refill Request Start: 10-10-2023 End: 10-10-2023 Subsequent hospital visit by physician [facility] Work Phone: Radiology Comment on above: Rib pain on right si de [R07.81] Start: 10-10-2023 End: 10-10-2023 Patient encounter procedure Latisha Jansen PA-C Work Phone: [facility] Comment on above: Rib pain on right si de (Primary Dx) Start: 06-10-2023 ambulatory Katheryn Kaplan MA [facility] Comment on above: Population Health Na vigation Outreach (Medication adherence ) Start: 06-09-2023 ambulatory Katheryn Kaplan MA [facility] [place] Comment on above: Population Health Na vigation Outreach (Medication adherence ) Start: 04-05-2023 Refill Hugo short MD Work Phone: [facility] [place] Comment on above: Refill Request Start: 02-16-2023 End: 02-16-2023 ambulatory [facility] Work Phone: Start: 02-16-2023 End: 02-16-2023 Patient encounter procedure [facility]-Sleep Lab Work Phone: Start: 01-14-2023 End: 01-14-2023 ambulatory [facility] Work Phone: Start: 01-14-2023 End: 01-14-2023 Patient encounter procedure [facility]-Sleep Lab Work Phone: Start: 01-04-2023 End: 01-04-2023 Patient encounter procedure [facility]-Laboratory, Specimen Work Phone: Start: 12-31-2022 End: 12-31-2022 ambulatory [facility] Work Phone: Start: 12-31-2022 End: 12-31-2022 Patient encounter procedure [facility]-Cat Scan, [facility] Start: 12-30-2022 Telephone encounter Hugo hammer MD Work Phone: [facility] [place] Comment on above: Orders Start: 12-27-2022 End: 12-27-2022 Patient encounter procedure Hugo Ro MD Work Phone: [facility] [place] Comment on above: Dizziness (Primary D x); Depression, unspecified depression type; Essential hypertension; Gastroesophageal reflux disease, unspecified whether esophagitis present; DESIRAE (obstructive sleep apnea) Start: 12-27-2022 ambulatory Pcp (Historical) Appoin [facility] Start: 12-24-2022 End: 12-24-2022 ambulatory [facility] Work Phone: Start: 12-24-2022 End: 12-24-2022 Patient encounter procedure [facility]Sleep Lab Start: 12-22-2022 ambulatory Pcp (Historical) Appoin [facility] Start: 12-15-2022 End: 12-15-2022 Patient encounter procedure [facility]-Laboratory, [place] Start: 12-14-2022 Telephone encounter Suzanne MEHTA Work Phone: [facility] Comment on above: Results Start: 12-13-2022 Telephone encounter Latisha macdonald PA-C Work Phone: [facility] Comment on above: Results Start: 12-13-2022 End: 12-13-2022 Subsequent hospital visit by physician [facility] Work Phone: Radiology Comment on above: Acute bilateral low back pain without sciatica [M54.50] Start: 12-13-2022 End: 12-13-2022 Patient encounter procedure Latisha Jansen PA-C Work Phone: [facility] Comment on above: Urinary frequency (P rimary Dx); Acute bilateral low back pain without sciatica; Microscopic hematuria Start: 11-22-2022 End: 11-22-2022 [facility] Start: 11-22-2022 Registered [facility] Start: 09-22-2022 Telephone encounter Latisha AbelC Work Phone: [place] [email or web address] Comment on above: Results Start: 09-21-2022 End: 09-21-2022 Patient encounter procedure Maurice Kaur APRN.ART SALES CONSULTANT Work Phone: [facility] Comment on above: URI, acute (Primary Dx) Start: 06-30-2022 Telephone encounter Tayler naranjo HOUSE SERVANT.ART SALES CONSULTANT Work Phone: [facility] Comment on above: Results Start: 06-29-2022 End: 06-29-2022 Office outpatient visit 15 minutes Les Ramos HOUSE SERVANT.ART SALES CONSULTANT Work Phone: [facility] Comment on above: Suspected COVID-19 v irus infection (Primary Dx) Start: 06-23-2022 End: 06-23-2022 Subsequent hospital visit by physician [facility] Comment on above: Encounter for screen ing mammogram for malignant neoplasm of breast [Z12.31] Start: 05-24-2022 End: 05-24-2022 Patient encounter procedure Hugo Ro MD Work Phone: [facility] [place] Comment on above: Medicare annual well ness visit, subsequent (Primary Dx); Obesity, Class I, BMI 30-34.9; Encounter for screening mammogram for malignant neoplasm of breast; Hyperlipidemia, unspecified hyperlipidemia type; Essential hypertension; Osteoporosis, unspecified osteoporosis type, unspecified pathological fracture presence; Depression, unspecified depression type; Anxiety; DESIRAE (obstructive sleep apnea); Tubular adenoma Start: 04-05-2022 Refill Hugo short MD Work Phone: [facility] [place] Comment on above: Refill Request Start: 01-28-2022 End: 01-28-2022 ambulatory Thaddeus Shaw PT [facility] Comment on above: Impingement syndrome of left shoulder (Primary Dx) Start: 01-14-2022 End: 01-14-2022 ambulatory Thaddeustorres Shaw PT [facility] Comment on above: Impingement syndrome of left shoulder (Primary Dx) Start: 01-05-2022 Refill Hugo short MD Work Phone: Internal [facility] Comment on above: Refill Request Start: 12-31-2021 End: 12-31-2021 ambulatory Thaddeus Shaw PT [facility] Comment on above: Impingement syndrome of left shoulder (Primary Dx) Start: 2021 End: 2021 ambulatory Thaddeus Shaw PT [facility] Comment on above: Impingement syndrome of left shoulder Start: 12-11-2021 Telephone encounter Hugo hammer MD Work Phone: Internal [facility] Comment on above: Results Start: 12-10-2021 End: 12-10-2021 Subsequent hospital visit by physician Nghia [facility] Work Phone: Radiology Comment on above: Impingement syndrome of left shoulder [M75.42] Start: 12-10-2021 End: 12-10-2021 Patient encounter procedure Hugo Ro MD Work Phone: [facility] [place] Comment on above: Hyperlipidemia, unsp ecified hyperlipidemia type (Primary Dx); Insomnia, unspecified type; Essential hypertension; Impingement syndrome of left shoulder Start: 10-30-2021 Refill Hugo short MD Work Phone: [facility] [place] Comment on above: Refill Request Start: 10-14-2021 Non-patient / Non-visit Dr. Kiki Ro Work Phone: [facility] Start: 10-14-2021 End: 10-14-2021 Admission to same day surgery center [facility] Start: 10-13-2021 Non-patient / Non-visit Dr. Kiki Ro Work Phone: [facility] Start: 10-08-2021 Non-patient / Non-visit Dr. Kiki Ro Work Phone: [facility] Start: 10-07-2021 End: 10-07-[address] [facility] Start: 10-07-2021 End: 10-07-[address] Hugo Ro Work Phone: [facility] Start: 09-23-2021 End: 09-23-[address] [facility] Start: 08-17-2021 End: 08-17-[address] [facility] Start: 02-03-2021 End: 02-03-2021 Subsequent hospital visit by physician Xr [facility] Work Phone: Radiology Comment on above: Acute pain of left k nee [M25.562] Start: 06-18-2020 End: 06-18-2020 Subsequent hospital visit by physician Xr [facility] Work Phone: Radiology Comment on above: Knee injuries, left, initial encounter [S89.92XA] Procedures Date Procedure Procedure Detail Performing Clinician Start: 02-20-[address] Hugo Ro MD Work Phone: Start: 09-10-2024 Urnls dip stick/tabl et rgnt auto w/o microscopy Marivel HaqYvonne HOUSE SERVANT.ART SALES CONSULTANT Work Phone: Start: 04-27-2024 Ecg routine ecg w/le ast 12 lds i&r only [facility] Provider Start: 04-27-2024 Urnls dip stick/tabl et rgnt auto w/o microscopy Hugo Ro MD Work Phone: Start: 04-19-2024 Radiologic exam ches t 2 views Francine Moomaw HOUSE SERVANT.ART SALES CONSULTANT Work Phone: Start: 12-27-2023 Lipid 1996 panel - S axel or Plasma Hugo Ro MD Work Phone: Start: 10-10-2023 Radex ribs uni w/posteroant ch minimum 3 views Latisha Jansen PA-C Work Phone: Start: 08-05-2023 Colonoscopy Latisha Athtorres PA-C Work Phone: Start: 12-31-2022 Computed tomography of abdomen and pelvis with contrast Start: 12-13-2022 Radex spine lumbosac ral 2/3 views Latisha Tracy Athtorres PA-C Work Phone: Start: 12-13-2022 Urnls dip stick/tabl et rgnt auto w/o microscopy Tayler Beard HOUSE SERVANT.ART SALES CONSULTANT Work Phone: Start: 12-13-2022 Lipid 1996 panel [...] examinati on knee 1/2 views Jasper Naranjo APRN.ART SALES CONSULTANT, DNP Work Phone: Start: 06-18-2020 Radiologic exam knee complete 4/more views Fitz Francisco APRN.CNP Work Phone: Start: 06-09-2020 Colonoscopy Hugo Cheek MD Work Phone: H/O: surgery S/P dilation and curettage Dr. Hugo Ro Work Phone: Plan of Treatment Date Care Activity Detail Author Start: 12-26-2028 Lipid panel Lipid Screening [facility] Start: 08-05-2028 Screening for malign ant neoplasm of colon [facility] Start: 02-15-2028 Urine microalbumin profile [facility] Start: 12-14-2027 Lipid 1996 panel - Serum or Plasma Lipid Screening [facility] Start: 12-14-2027 Lipid panel Lipid Screening [facility] Start: 12-14-2027 LIPID SCREEN LIPID SCREEN [facility] Start: 04-27-2027 Diabetes Screening Diabetes Screenin g [facility] Start: 12-26-2026 Diabetes Screening Diabetes Screenin g [facility] Start: 12-15-2026 LIPID SCREEN LIPID SCREEN [facility] Start: 08-05-2026 Screening for malign ant neoplasm of colon [facility] Start: 06-18-2026 Screening for osteoporosis Bone Density Screening [facility] Start: 02-22-2026 Annual PCP Team Straight Tooth Gear Generator Operator kari Disease Visit Annual PCP Team Chronic Disease Visit [facility] Start: 12-13-2025 DIABET[facility]CRE[facility] Start: 12-13-2025 Diabetes Screening Diabetes Screenin g [facility] Start: 09-10-2025 Annual PCP Team Straight To[employer] Gear Generator Operator kari Disease Visit Annual PCP Team Chronic Disease Visit [facility] Start: 09-10-2025 BP Controlled (<130/80) BP Controlle d (<130/80) [facility] Start: 09-10-2025 Pneumococcal Vaccine : 50+ (1 of 1 - PCV) Pneumococcal Vaccine: 50+ (1 of 1 - PCV) [facility] Comment on above: Postponed from 12/17 (Declined at this time) Start: 09-10-2025 RSV Vaccine (1 - 1-d ose 75+ series) RSV Vaccine (1 - 1-dose 75+ series) [facility] Comment on above: Postponed from 12/17 (Declined at this time) Start: 09-10-2025 Shingrix Vaccine (1 of 2) Shingrix Vaccine (1 of 2) [facility] Comment on above: Postponed from 12/17 (Declined at this time) Start: 08-16-2025 Annual PCP Team Straight Tooth Gear Generator Operator kari Disease Visit Annual PCP Team Chronic Disease Visit [facility] Start: 08-16-2025 BP Controlled (<130/80) BP Controlle d (<130/80) [facility] Start: 08-16-2025 Covid-19 Vaccine ( season) Covid-19 Vaccine () [facility] Comment on above: Postponed from 03/11 (Declined at this time) Start: 08-13-2025 BP Controlled (<130/80) BP Controlle d (<130/80) [facility] Start: 05-11-2025 Annual PCP Team Straight Tooth Gear Generator Operator kari Disease Visit Annual PCP Team Chronic Disease Visit [facility] Start: 05-11-2025 BP Controlled (<130/80) BP Controlle d (<130/80) [facility] Start: 05-05-2025 LIPID SCREEN LIPID SCREEN [facility] Start: 04-27-2025 Annual PCP Team Straight Tooth Gear Generator Operator kari Disease Visit Annual PCP Team Chronic Disease Visit [facility] Start: 04-26-2025 End: 04-26-2025 Patient encounter procedure 04/26/2025 11:40 AM EDT Office Visit [facility] [place] [address] [place] [address] Hugo Ro MD [address] [facility] [place] [address] 2 month follow up [facility] [place] Comment on above: 2 month follow up Start: 04-08-2025 End: 07-08-2025 CBC panel - Blood by Automated count COMPLETE BLOOD COUNT Lab Routine Essential hypertension Expected: 04/08/2025, Expires: 07/08/2025 [facility] Comment on above: Expected: 04/08/2025 , Expires: 07/08/2025 Start: 04-08-2025 End: 07-08-2025 Comprehensive metabolic 2000 panel - Serum or Plasma COMPREHENSIVE METABOLIC PANEL Lab Routine Hyperlipidemia, unspecified hyperlipidemia type Expected: 04/08/2025, Expires: 07/08/2025 [facility] Work Phone: Comment on above: Expected: 04/08/2025 , Expires: 07/08/2025 Start: 04-08-2025 End: 07-08-2025 Lipid 1996 panel - Serum or Plasma LIPID PANEL, FASTING Lab Routine Hyperlipidemia, unspecified hyperlipidemia type Expected: 04/08/2025, Expires: 07/08/2025 [facility] Comment on above: Expected: 04/08/2025 , Expires: 07/08/2025 Start: 03-11-2025 Influenza vaccination Influenza Vacc ine (#1) [facility] Start: 02-22-2025 End: 02-22-2025 Patient encounter procedure 02/22/2025 9:00 AM EDT Office Visit [facility] [place] [address] [place] [address] Hugo Ro MD [address] [place] [address] 6 month follow-up [facility] [place] Comment on above: 6 month follow-up [facility]: [facility] Start: 01-17-[facility]25 Annual PCP Team Straight Tooth Gear Generator Operator kari Disease Visit Annual PCP Team Chronic Disease Visit [facility] Start: 01-17-2025 BP Controlled (<130/80) BP Controlle d (<130/80) [facility] Start: 01-17-2025 Shingrix Vaccine (1 of 2) Shingrix Vaccine (1 of 2) [facility] Comment on above: Postponed from 12/17 (Declined at this time) Start: 01-17-2025 End: 01-17-2025 Patient encounter procedure 01/17/2025 11:20 AM EDT Office Visit [facility] [place] [address] [place] [address] Hugo Ro MD [address] [place], [place] [id number] 6 month follow-up [facility] [place] Comment on above: 6 month follow-up Start: 01-07-2025 Influenza vaccination Influenza Vacc ine (#1) [facility] Comment on above: Postponed from 03/11 (Declined at this time) Start: 12-15-2024 DIABETES SCREEN DIABETES SCREEN [facility] Start: 10-26-2024 End: 10-26-2024 ambulatory 10/26/2024 11:00 AM EDT OT/PT/Speech Visit [facility] [address] [place] [address] Thaddeus Shaw, PT [address] [place], [place] [id number] M25.562 (ICD-10-CM) - Acute pain of left knee [facility] Comment on above: M25.562 (ICD-10-CM) - Acute pain of left knee Start: 10-12-2024 End: 10-12-2024 ambulatory 10/12/2024 8:45 AM EDT OT/PT/Speech Visit [facility] [address] [place] [address] Thaddeus Shaw, PT [address] [place], [place] [address] M25.562 (ICD-10-CM) - Acute pain of left knee [facility] Comment on above: M25.562 (ICD-10-CM) - Acute pain of left knee Start: 10-09-2024 BP Controlled (<130/80) BP Controlle d (<130/80) [facility] Start: 09-10-2024 End: 09-10-2024 Patient encounter procedure 09/10/2024 12:40 PM EST Office Visit [facility] [place] [address] [place] [address] Marivel Dash, HOUSE SERVANT.ART SALES CONSULTANT [address] [place] [address] Annual Medicare Wellness [facility] [place] Comment on above: Annual Medicare Well ness Start: 07-23-2024 End: 07-23-2024 Patient encounter procedure 07/23/2024 9:50 AM EST Appointment Mammogram [address] [place] [address] Outside order Mammogram Comment on above: Outside order Start: 07-18-2024 Screening for malign ant neoplasm of breast Mammogram Screening [facility] Start: 07-16-2024 End: 07-16-2024 Patient encounter procedure 07/16/2024 1:00 PM EST Office Visit [facility] [place] [address] [place] [address] Marivel Dash, HOUSE SERVANT.ART SALES CONSULTANT [address] [place] [address] Annual Medicare Wellness [facility] [place] Comment on above: Annual Medicare Well ness Start: 07-14-2024 Annual PCP Team Straight Tooth Gear Generator Operator kari Disease Visit Annual PCP Team Chronic Disease Visit [facility] Start: 07-14-2024 Covid-19 Vaccine ( season) Covid-19 Vaccine ( season) [facility] Comment on above: Postponed from 03/11 (Declined at this time) Start: 07-14-2024 Pneumococcal Vaccine : 65+ (1 of 1 - PCV) Pneumococcal Vaccine: 65+ (1 of 1 - PCV) [facility] Comment on above: Postponed from 12/17 (Declined at this time) Start: 07-14-2024 RSV Vaccine (1 - 1-d ose 60+ series) RSV Vaccine (1 - 1-dose 60+ series) [facility] Comment on above: Postponed from 12/17 (Declined at this time) Start: 07-14-2024 RSV Vaccine (1 - 1-d ose 75+ series) RSV Vaccine (1 - 1-dose 75+ series) [facility] Comment on above: Postponed from 12/17 (Declined at this time) Start: 07-11-2024 Advance Directive Discussion Advance Directive Discussion [facility] Start: 05-11-2024 End: 05-11-2024 Patient encounter procedure 05/11/2024 8:40 AM EDT Office Visit [facility] [place] [address] [facility] [place], [place] [address] Hugo Ro MD [address] [place], [place] [address] 2 week follow up [facility] [place] Comment on above: 2 week follow up Start: 04-27-2024 End: 07-27-2024 Comprehensive metabolic 2000 panel - Serum or Plasma [facility] Comment on above: Expected: 04/27/2024 , Expires: 07/27/2024 Start: 04-27-2024 End: 07-27-2024 Lipase [Enzymatic activity/volume] in Serum or Plasma [facility] Comment on above: Expected: 04/27/2024 , Expires: 07/27/2024 Start: 03-11-2024 Covid-19 Vaccine ( season) Covid-19 Vaccine ( season) [facility] Start: 03-11-2024 Covid-19 Vaccine ( season) Covid-19 Vaccine ( season) [facility] Start: 03-11-2024 Influenza vaccination [facility] Start: 01-10-2024 End: 01-10-2024 Patient encounter procedure 01/10/2024 9:40 AM EDT Office Visit [facility] [place] [address] [facility] [place], [place] [id number] Hugo Ro MD [address] [place] [address] 6 Month follow up [facility] [place] Comment on above: 6 Month follow up Start: 12-28-2023 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 KARI DISEASE VISIT ANNUAL PCP TEAM CHRONIC DISEASE VISIT [facility] Start: 12-28-2023 BP CONTROLLED (<130/80) BP CONTROLLE D (<130/80) [facility] Start: 12-22-2023 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 KARI DISEASE VISIT ANNUAL PCP TEAM CHRONIC DISEASE VISIT [facility] Start: 12-18-2023 RSV Vaccine (1 - 1-d ose 75+ series) RSV Vaccine (1 - 1-dose 75+ series) [facility] Start: 11-25-2023 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 KARI DISEASE VISIT ANNUAL PCP TEAM CHRONIC DISEASE VISIT [facility] Start: 11-25-2023 SHINGRIX VACCINE (1 of 2) SHINGRIX VACCINE (1 of 2) [facility] Comment on above: Postponed from 12/17 (Declined at this time) Start: 06-23-2023 Mammography [facility] Start: 06-09-2023 Colonoscopy COLONOSCOPY [facility] Start: 06-09-2023 COLORECTAL CANCER SCREENING COLORECTAL CANCER SCREENING [facility] Start: 05-24-2023 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 KARI DISEASE VISIT ANNUAL PCP TEAM CHRONIC DISEASE VISIT [facility] Start: 05-24-2023 BP CONTROLLED (<130/80) BP CONTROLLE D (<130/80) [facility] Start: 05-24-2023 COVID-19 VACCINE (3 - Booster for Veronica series) COVID-19 VACCINE (3 - Booster for Veronica series) [facility] Comment on above: Postponed from 04/06 (Declined at this time) Start: 05-24-2023 Pneumococcal Vaccine : 65+ (1 - PCV) Pneumococcal Vaccine: 65+ (1 - PCV) [facility] Comment on above: Postponed from 12/17 (Declined at this time) Start: 05-24-2023 PNEUMOCOCCAL: 65+ (1 - PCV) PNEUMOCOCCAL: 65+ (1 - PCV) [facility] Comment on above: Postponed from 12/17 (Declined at this time) Start: 05-05-2023 DIABETES SCREEN DIABETES SCREEN [facility] Start: 03-11-2023 Covid-19 Vaccine ( season) Covid-19 Vaccine ( season) [facility] Start: 03-11-2023 Influenza vaccination [facility] Start: 01-07-2023 Influenza vaccination INFLUENZA (#1) [facility] Comment on above: Postponed from 03/11 (Declined at this time) Start: 2022 BP CONTROLLED (<130/80) BP CONTROLLE D (<130/80) [facility] Start: 12-10-2022 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 KARI DISEASE VISIT ANNUAL PCP TEAM CHRONIC DISEASE VISIT [facility] Start: 12-10-2022 BP CONTROLLED (<130/80) BP CONTROLLE D (<130/80) [facility] Start: 11-21-2022 End: 01-21-2023 CBC panel - Blood by Automated count CBC Lab Routine Essential hypertension Expected: 11/21/2022, Expires: 01/21/2023 [facility] Work Phone: Comment on above: Expected: 11/21/2022 , Expires: 01/21/2023 Start: 11-21-2022 End: 01-21-2023 Comprehensive metabolic 2000 panel - Serum or Plasma COMP METABOLIC PANEL Lab Routine Hyperlipidemia, unspecified hyperlipidemia type Expected: 11/21/2022, Expires: 01/21/2023 [facility] Work Phone: Comment on above: Expected: 11/21/2022 , Expires: 01/21/2023 Start: 11-21-2022 End: 01-21-2023 Lipid 1996 panel - Serum or Plasma LIPID PANEL BASIC Lab Routine Hyperlipidemia, unspecified hyperlipidemia type Expected: 11/21/2022, Expires: 01/21/2023 [facility] Work Phone: Comment on above: Expected: 11/21/2022 , Expires: 01/21/2023 Start: 09-21-2022 End: 10-05-2022 Influenza virus A and B RNA and SARS-CoV-2 (COVID-19) N gene panel - Respiratory specimen by GIGI with probe detection [facility] Work Phone: Comment on above: Expected: 09/21/2022 , Expires: 10/05/2022 Start: 07-11-2022 ADVANCE DIRECTIVE DISCUSSION ADVANCE DIRECTIVE DISCUSSION [facility] Start: 06-29-2022 End: 07-13-2022 Influenza virus A and B RNA and SARS-CoV-2 (COVID-19) N gene panel - Respiratory specimen by GIGI with probe detection [facility] Work Phone: Comment on above: Expected: 06/29/2022 , Expires: 07/13/2022 Start: 06-18-2022 FECAL OCCULT BLOOD FECAL OCCULT BLOO D [facility] Start: 06-18-2022 Screening for malign ant neoplasm of colon Fecal Occult Blood [facility] Start: 06-10-2022 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 KARI DISEASE VISIT ANNUAL PCP TEAM CHRONIC DISEASE VISIT [facility] Start: 05-27-2022 Mammography MAMMOGRAM [facility] Start: 04-29-2022 BP CONTROLLED (<130/80) BP CONTROLLE D (<130/80) [facility] Start: 03-18-2022 SHINGRIX VACCINE (1 of 2) SHINGRIX VACCINE (1 of 2) [facility] Comment on above: Postponed from 12/17 (Declined at this time) Start: 03-11-2022 Influenza vaccination [facility] Start: 01-09-2022 End: 03-11-2022 CBC panel - Blood by Automated count CBC Lab Routine Essential hypertension Expected: 01/09/2022, Expires: 03/11/2022 [facility] Work Phone: Comment on above: Expected: 01/09/2022 , Expires: 03/11/2022 Start: 01-09-2022 End: 03-11-2022 Comprehensive metabolic 2000 panel - Serum or Plasma COMP METABOLIC PANEL Lab Routine Hyperlipidemia, unspecified hyperlipidemia type Expected: 01/09/2022, Expires: 03/11/2022 [facility] Work Phone: Comment on above: Expected: 01/09/2022 , Expires: 03/11/2022 Start: 01-09-2022 End: 03-11-2022 LIPID PANEL BASIC LIPID PANEL BASIC Lab Routine Hyperlipidemia, unspecified hyperlipidemia type Expected: 01/09/2022, Expires: 03/11/2022 [facility] Work Phone: Comment on above: Expected: 01/09/2022 , Expires: 03/11/2022 Start: 07-11-2021 ADVANCE DIRECTIVE DISCUSSION ADVANCE DIRECTIVE DISCUSSION [facility] Start: 06-11-2021 COVID-19 VACCINE (3 - Booster for Veronica series) COVID-19 VACCINE (3 - Booster for Veronica series) [facility] Start: 04-06-2021 COVID-19 VACCINE (3 - Booster for Veronica series) COVID-19 VACCINE (3 - Booster for Veronica series) [facility] Start: 2013 Pneumococcal Vaccine : 65+ (1 - PCV) Pneumococcal Vaccine: 65+ (1 - PCV) [facility] Start: 2013 PNEUMOCOCCAL: 65+ (1 - PCV) PNEUMOCOCCAL: 65+ (1 - PCV) [facility] Start: 2008 RSV Vaccine (1 - 1-d ose 60+ series) RSV Vaccine (1 - 1-dose 60+ series) [facility] Start: 1998 Pneumococcal Vaccine : 50+ (1 of 1 - PCV) Pneumococcal Vaccine: 50+ (1 of 1 - PCV) [facility] Start: 1998 SHINGRIX VACCINE (1 of 2) SHINGRIX VACCINE (1 of 2) [facility] Start: 1993 COLOGUARD (FIT-DNA) COLOGUARD (FIT-D NA) [facility] Start: [address] COLONOGRAPHY [facility] Start: 1993 Screening for malign ant neoplasm of colon [facility] Start: 1993 SIGMOIDOSCOPY SIGMOIDOSCOPY [facility] Bacteria identified in Urine by Culture URINE CULTURE Microbiology Routine Urinary frequency 12/13/2022 9:58 AM EDT [facility] Work Phone: Bacteria identified in Urine by Culture BACTERIAL CULTURE, URINE Microbiology Routine Urinary frequency 09/10/2024 1:15 PM EST [facility] Colonoscopy [facility] ECG COMPLETE [facility] Work Phone: Comment on above: Ordered: 04/27/2024 MG Breast - bilatera l Screening [facility] Patient referral [facility] Work Phone: PT PLAN OF CARE CERTIFICATION PT PLAN OF CARE CERTIFICATION Procedures Routine Impingement syndrome of left shoulder Ordered: 2021 [facility] Work Phone: Comment on above: Ordered: 2021 PT PLAN OF CARE CERTIFICATION PT PLAN OF CARE CERTIFICATION Procedures Routine Impingement syndrome of left shoulder Ordered: 01/14/2022 [facility] Work Phone: Comment on above: Ordered: 01/14/2022 End: 06-23-2023 Screening mammography bi 2-view breast inc cad HARSHIL SCREENING Radiology Routine Encounter for screening mammogram for malignant neoplasm of breast 1 Occurrences starting 05/24/2022 until 06/23/2023 [facility] Work Phone: Comment on above: 1 Occurrences starti ng 05/24/2022 until 06/23/2023 End: 10-10-2025 XR Knee - left 4 Views XR KNEE GENERAL 4V AP BOTH/PA BOTH/LAT/MERC LEFT Radiology Routine Acute pain of left knee Injury of left knee, initial encounter 1 Occurrences starting 09/10/2024 until 10/10/2025 [facility] Work Phone: Comment on above: 1 Occurrences starti ng 09/10/2024 until 10/10/2025 XR Knee - left 4 Views XR KNEE G ENERAL 4V AP BOTH/PA BOTH/LAT/MERC LEFT Radiology Routine Acute pain of left knee Injury of left knee, initial encounter 09/10/2024 1:29 PM EST [facility] Immunizations Immunization Date Immunization Notes Care Provider Fa cility 02-09-2021 COVID-19 vaccine (VERONICA) Hugo Ro MD Work Phone: [facility] Work Phone: 03-29-2018 influenza virus vaccine, unspecified formulation Hugo Ro MD Work Phone: [facility] Payers Date Payer Category Payer Self-pay [id number] 2023 Medicare (Managed Care) KENNY GARCIA HMO [id number] 2023 Medicare [id number] 2021 Medicare HUMANA MEDICARE HUMANA GOLD PLUS [id number] 2021-Present [phone] [address] [address] [place] [address] O [id number] 2021 Medicare [id number] [id number]. [id number] 2019 Unknown [id number]. [id number] 2019 Unknown [id number]. 1.13.159.2. [id number] 2016 Medicaid MEDICAID [facility] MEDICAID [id number] 2016-Present [phone] [address] [place] [address] Medicaid [id number]. [id number] 2016 Medicaid [id number]. 1.13.159.2. [id number] 2016 Medicaid [id number] 2013 Medicare [id number] Medicare [id number] Unknown [id number] 2.16.840.1.312082.3.579.2. 462 Unknown [id number] 2.16.840.1.751152.3.579.2. 462 Unknown [id number] 2.16.840.1.756138.3.579.2. 462 Unknown [id number] 2.16.840.1.986276.3.579.2. 462 Unknown [id number] 2.16.840.1.328197.3.579.2. 462 Unknown [id number] 2.16.840.1.913397.3.579.2. 462 Unknown [id number] 2.16.840.1.450100.3.579.2. 462 Unknown [id number] 2.16.840.1.262175.3.579.2. 462 Unknown [id number] 2.16.840.1.032892.3.579.2. 462 Unknown [id number] 2.16.840.1.362892.3.579.2. 462 Unknown [id number] 2.16.840.1.578310.3.579.2. 462 Unknown [id number] 2.16.840.1.902184.3.579.2. 462 Unknown [id number] 2.16.840.1.382309.3.579.2. 462 Social History Date Type Detail Facility [facility] Work Phone: Start: 10-12-2021 End: 12-04-2021 Tobacco smoking status NHIS Unknown if ever smoked [facility] Start: 1950 Sex Assigned At Female W [facility] Start: 05-16-2017 End: 06-29-2022 Tobacco smoking status NHIS Ex-smoker [facility] History of tobacco use Cigarette Smoker C [facility] Start: 05-16-2017 End: 06-29-2022 Tobacco use and exposure Smokeless tobacco non-user [facility] Start: 06-10-2021 End: 02-22-2025 Alcohol intake Current drinker of alcohol (finding) [facility] Start: 05-16-2017 History SDOH Alcohol Comment occasional wine with dinner [facility] Start: 05-16-2017 End: 06-29-2022 Tobacco Comment very rarely when I was a teenager [facility] Start: 1950 Sex Assigned At Not on file C [facility] Start: 05-19-2020 End: 05-24-2022 Exposure to SARS-CoV-2 (event) Not sure [facility] Work Phone: History of tobacco use Current smoker [facility] Start: 11-24-2022 End: 12-21-2022 History of Social function [facility] Start: 11-24-2022 End: 12-21-2022 Tobacco use panel [facility] Start: 06-11-2012 Adult Depression Screening Assessment 0 [facility] How often to you hav e a drink containing alcohol? Monthly or less [facility] Work Phone: How many standard drinks containing alcohol do you have on a typical day? 1 or 2 [facility] Work Phone: How often do you hav e 6 or more drinks on 1 occasion? 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 [facility] 10-30-2014 Are you deaf, or do you have serious difficulty hearing No 10/30/2014 10:37 AM Mulu Newton MA No [facility] 10-30-2014 Are you blind, or do you have serious difficulty seeing, even when wearing glasses No 10/30/2014 10:37 AM Mulu Newton MA No [facility] 10-30-2014 Do you have serious difficulty walking or climbing stairs No 10/30/2014 10:37 AM Mulu Newton MA No [facility] 10-30-2014 Do you have difficul ty dressing or bathing No 10/30/2014 10:37 AM Mulu Newton MA No [facility] 10-30-2014 Because of a physica l, mental, or emotional condition, do you have difficulty doing errands alone such as visiting a physician's office or shopping No 10/30/2014 10:37 AM Mulu Newton MA [facility] Mental Status Date Assessment Result Facility 02-20-2025 Cognitive function Level Of Cons ciousness Awake;Alert;Appropriate [facility] Work Phone: 02-20-2025 Cognitive function Voice/Name [facility] Work Phone: 10-14-2021 Cognitive function Voice/Name [facility] Work Phone: 10-30-2014 Because of a physica l, mental, or emotional condition, do you have serious difficulty concentrating, remembering, or making decisions No 10/30/2014 10:37 AM FABIÁNT Mulu Preston MA [facility] Clinical Notes 06-18-2020 to 02-22-2025 Hugo Ro MD - 02/22/2025 9:29 AM EDT Note Date & Type Note Facility 02-22-2025 Note HNO ID: [id number] Author: HUGO RO MD Service: ? Author Type: Physician Type: Progress Notes Filed: 02/22/2025 10:06 Note Text: Livia Mondragon is a 74 year old female. She just had a colonoscopy and polypectomies. Repeat was recommended in 2-[address] Zapien was also planning to fix her right inguinal hernia later this month. Her hypertension was above goal. She had not taken her medication. Hyperlipidemia has not been checked lately. ACTIVE PROBLEM LIST Depression Desirae (Obstructive Sleep Apnea) Tubular Adenoma Hyperlipemia Anxiety Osteopenia Impingement Syndrome of Right Shoulder Gastroesophageal Reflux Disease Essential Hypertension Urge Incontinence Impingement Syndrome of Left Shoulder Obesity, Class I, Bmi 30-34.9 Right Inguinal Hernia Marijuana Dependence (Hcc) PAST SURGICAL HISTORY Procedure Laterality Date APPENDECTOMY DELIVERY ATTEMPTED x 3 COLONOSCOPY AND POLYPECTOMY 02/20/2025 Dr. Zapien. Repeat in 2 years. COLONOSCOPY FLX DX W/COLLJ SPEC WHEN PFRMD 11/17/2011 Colonoscopy repeat 18 months COLONOSCOPY FLX DX W/COLLJ SPEC WHEN PFRMD 06/12/2013 Colonoscopy repeat 2 years COLONOSCOPY FLX DX W/COLLJ SPEC WHEN PFRMD 05/12/2015 Colonoscopy COLONOSCOPY FLX DX W/COLLJ SPEC WHEN PFRMD 05/16/2017 3 yr repeat COLONOSCOPY FLX DX W/COLLJ SPEC WHEN PFRMD 06/09/2020 Colonoscopy repeat in 3 years DILATION AND CURETTAGE DXAND/THER NONOBSTETRIC ESOPHAGOGASTRODUODENOSCOPY TRANSORAL DIAGNOSTIC 01/01/2019 EGD HYSTEROSCOPY, DIAGNOSTIC (SEPARATE 10/14/2021 PAST SURGICAL HISTORY OF 06/19/2008 left midfoot exostectomy Social History Tobacco Use Smoking status: Former Types: Cigarettes Smokeless tobacco: Never Tobacco comments: very rarely when I was a teenager Vaping Use Vaping status: Never Used Substance Use Topics Alcohol use: Yes Comment: occasional wine with dinner Drug use: Yes Frequency: 7.0 times per week Types: Marijuana Comment: daily smokes 1/2 joint am and pm Current Outpatient Medications Medication Sig vibegron (GEMTESA) 75 mg tablet Take 1 tablet by mouth once daily. Cholecalciferol, Vitamin D3, 1,000 unit cap Take 1 capsule by mouth once daily. calcium carbonate 600 mg-cholecalciferol 200 units (CALCIUM 600 + D,3,) 600 mg(1,500mg) -200 unit tab Take 1 tablet by mouth twice daily. amLODIPine (NORVASC) 10 mg tablet Take 1 tablet by mouth once daily. atorvastatin (LIPITOR) 10 mg tablet Take 1 tablet by mouth daily at bedtime. For cholesterol. omeprazole (PRILOSEC) 40 mg capsule Take 1 capsule by mouth once daily. PARoxetine (PAXIL) 40 mg tablet Take 1 tablet by mouth once daily. No current facility-administered medications for this visit. Review of Systems Constitutional: Negative for fatigue. Respiratory: Negative for cough and shortness of breath. Cardiovascular: Negative for chest pain, palpitations and leg swelling. Gastrointestinal: Negative for abdominal pain, constipation and diarrhea. Musculoskeletal: Negative for arthralgias. Objective BP 134/76 (BP Site: Right Arm, BP Position: Sitting) Pulse 92 Resp 16 Wt 68.2 kg (150 lb 5.7 oz) BMI 33.35 kg/m? Physical Exam Constitutional: General: She is not in acute distress. Appearance: She is not ill-appearing. Cardiovascular: Rate and Rhythm: Normal rate and regular rhythm. Heart sounds: S1 normal and S2 normal. No murmur heard. No gallop. Pulmonary: Breath sounds: Normal breath sounds. Abdominal: Palpations: Abdomen is soft. Tenderness: There is no abdominal tenderness. Musculoskeletal: Right lower leg: No edema. Left lower leg: No edema. Neurological: Mental Status: She is alert. Gait: Gait normal. Psychiatric: Mood and Affect: Mood normal. Behavior: Behavior normal. ASSESSMENT/PLAN: 1. Marijuana dependence (HCC) - ICD9: 304.30, ICD10: F12.20 (primary diagnosis) - She was counseled on the risks. 2. Essential hypertension - ICD9: 401.9, ICD10: I10 - Worsening control - Continue current medications - Follow up in 2 [facility] hypertension visit - AMLODIPINE 10 MG TABLET - COMPLETE BLOOD COUNT 3. Hyperlipidemia, unspecified hyperlipidemia type - ICD9: 272.4, ICD10: E78.5 - Control undetermined, due for labs - Continue current medications - Counseled on healthy diet and regular exercise - ATORVASTATIN 10 MG TABLET - COMPREHENSIVE METABOLIC PANEL - LIPID PANEL, FASTING 4. Gastroesophageal reflux disease, unspecified whether esophagitis present - ICD9: 530.81, ICD10: K21.9 - Controlled. - OMEPRAZOLE 40 MG CAPSULE,DELAYED RELEASE 5. Anxiety - ICD9: 300.00, ICD10: F41.9 - Controlled. - PAROXETINE 40 MG TABLET 6. Depression, unspecified depression type - ICD9: 311, ICD10: F32.A - Controlled. - PAROXETINE 40 MG TABLET 7. Tubular adenoma - ICD9: 229.9, ICD10: D36.9 - Noted. 8. Right inguinal hernia - ICD9: 550.90, ICD10: K40.90 - For eli (more content not included)... [facility] 02-22-2025 History of Present illness Narrative Subjective Natali Mondragon is a 74 year old female. She just had a colonoscopy and polypectomies. Repeat was recommended in 2-[address] Zapien was also planning to fix her right inguinal hernia later this month. Her hypertension was above goal. She had not taken her medication. Hyperlipidemia has not been checked lately. ACTIVE PROBLEM LIST Depression Desirae (Obstructive Sleep Apnea) Tubular Adenoma Hyperlipemia Anxiety Osteopenia Impingement Syndrome of Right Shoulder Gastroesophageal Reflux Disease Essential Hypertension Urge Incontinence Impingement Syndrome of Left Shoulder Obesity, Class I, Bmi 30-34.9 Right Inguinal Hernia Marijuana Dependence (Hcc) PAST SURGICAL HISTORY Procedure Laterality Date APPENDECTOMY DELIVERY ATTEMPTED x 3 COLONOSCOPY & POLYPECTOMY 02/20/2025 Dr. Zapien. Repeat in 2 years. COLONOSCOPY FLX DX W/COLLJ SPEC WHEN PFRMD [...] SURGICAL HISTORY OF 06/19/2008 left midfoot exostectomy Social History Tobacco Use Smoking status: Former Types: Cigarettes Smokeless tobacco: Never Tobacco comments: very rarely when I was a teenager Vaping Use Vaping status: Never Used Substance Use Topics Alcohol use: Yes Comment: occasional wine with dinner Drug use: Yes Frequency: 7.0 times per week Types: Marijuana Comment: daily smokes 1/2 joint am and pm Current Outpatient Medications Medication Sig vibegron (GEMTESA) 75 mg tablet Take 1 tablet by mouth once daily. Cholecalciferol, Vitamin D3, 1,000 unit cap Take 1 capsule by mouth once daily. calcium carbonate 600 mg-cholecalciferol 200 units (CALCIUM 600 + D,3,) 600 mg(1,500mg) -200 unit tab Take 1 tablet by mouth twice daily. amLODIPine (NORVASC) 10 mg tablet Take 1 tablet by mouth once daily. atorvastatin (LIPITOR) 10 mg tablet Take 1 tablet by mouth daily at bedtime. For cholesterol. omeprazole (PRILOSEC) 40 mg capsule Take 1 capsule by mouth once daily. PARoxetine (PAXIL) 40 mg tablet Take 1 tablet by mouth once daily. No current facility-administered medications for this visit. Review of Systems Constitutional: Negative for fatigue. Respiratory: Negative for cough and shortness of breath. Cardiovascular: Negative for chest pain, palpitations and leg swelling. Gastrointestinal: Negative for abdominal pain, constipation and diarrhea. Musculoskeletal: Negative for arthralgias. Objective BP 134/76 (BP Site: Right Arm, BP Position: Sitting) Pulse 92 Resp 16 Wt 68.2 kg (150 lb 5.7 oz) BMI 33.35 kg/m Physical Exam Constitutional: General: She is not in acute distress. Appearance: She is not ill-appearing. Cardiovascular: Rate and Rhythm: Normal rate and regular rhythm. Heart sounds: S1 normal and S2 normal. No murmur heard. No gallop. Pulmonary: Breath sounds: Normal breath sounds. Abdominal: Palpations: Abdomen is soft. Tenderness: There is no abdominal tenderness. Musculoskeletal: Right lower leg: No edema. Left lower leg: No edema. Neurological: Mental Status: She is alert. Gait: Gait normal. Psychiatric: Mood and Affect: Mood normal. Behavior: Behavior normal. ASSESSMENT/PLAN: 1. Marijuana dependence (HCC) - ICD9: 304.30, ICD10: F12.20 (primary diagnosis) - She was counseled on the risks. 2. Essential hypertension - ICD9: 401.9, ICD10: I10 - Worsening control - Continue current medications - Follow up in 2 [facility] for hypertension visit - AMLODIPINE 10 MG TABLET - COMPLETE BLOOD COUNT 3. Hyperlipidemia, unspecified hyperlipidemia type - ICD9: 272.4, ICD10: E78.5 - Control undetermined, due for labs - Continue current medications - Counseled on healthy diet and regular exercise - ATORVASTATIN 10 MG TABLET - COMPREHENSIVE METABOLIC PANEL - LIPID PANEL, FASTING 4. Gastroesophageal reflux disease, unspecified whether esophagitis present - ICD9: 530.81, ICD10: K21.9 - Controlled. - OMEPRAZOLE 40 MG CAPSULE,DELAYED RELEASE 5. Anxiety - ICD9: 300.00, ICD10: F41.9 - Controlled. - PAROXETINE 40 MG TABLET 6. Depression, unspecified depression type - ICD9: 311, ICD10: F32.A - Controlled. - PAROXETINE 40 MG TABLET 7. Tubular adenoma - ICD9: 229.9, ICD10: D36.9 - Noted. 8. Right inguinal hernia - ICD9: 550.90, ICD10: K40.90 - For surgery this month. Hugo Ro MD documented in this encounter [facility] 02-20-2025 Consult note [facility] 02-20-2025 Procedure note [facility] 02-20-2025 Procedure note [facility] 02-20-2025 Consult note [facility] 02-20-2025 History and physi urbano note [facility] 02-20-2025 Note [facility] Medical Records Department [address] [place] [address] History Physical Exam 02/20/25 0717 MR#: [id number] Acct: [id number] Name: NATALI MONDRAGON Rep #: [id number] : 1950 74 From: Crys Zapien MD PCP: Dr. Hugo Ro MD Status:[facility] Location: [place] [address] History and Physical Date of Admission: 02/20/25 Date of Service: 02/01/25 MR#: [id number] Acct: [id number] Name: NATALI MONDRAGON Rep #: [id number] : 1950 Provider: Dr. Crys Zapien MD Age/Sex: 74/F Location: [facility] Status: Signed Intake Vital Signs 01/25/2509:01 02/01/2510:20 Height 4 ft 9 in 4 ft 9 in Weight: 148 lb 4 oz 149 lb BMI 32.1 32.2 BP 127/81 H 130/56 H Blood Pressure Location Rt brachial Position Sitting Respiration 16 Intake Visit Reasons: COLONOSCOPY Chief Complaint: c-scope Metal Lather Required: No Is patient in pain?: Yes (generalized abd pain) Allergies No Known Allergies Allergy (Verified 02/01/25 10:21) Medications ???Medication ???Instructions ???Recorded ???Confirmed ???Type amlodipine 10 mg tablet 10 mg PO DAILY 10/07/21 02/01/25 History paroxetine HCl 40 mg tablet (Paxil) 40 mg PO DAILY 10/07/21 02/01/25 History atorvastatin 10 mg tablet 10 mg PO QHS 10/08/21 02/01/25 History cholecalciferol (vitamin D3) 50 50 mcg PO DAILY 10/08/21 02/01/25 History mcg (2,000 unit) capsule multivitamin 1 tab PO DAILY 10/08/21 02/01/25 History omeprazole 40 mg capsule,delayed 40 mg PO DAILY 10/08/21 02/01/25 History release osteo biflex 1 tab PO DAILY 10/08/21 02/01/25 History vibegron 75 mg tablet (Gemtesa) 75 mg PO DAILY 10/08/21 02/01/25 History vitamin E 200 unit capsule 200 unit PO DAILY 10/08/21 02/01/25 History Have you fallen in the past [...] 10/14/21) History of Family History Mother Lung cancerDaughter Lung cancerFather Stomach cancer Social History Smoking Status: Former [...] a previous x 2 and does complain of pain in the lower aspect of the scar on occasion. Patient was unaware that there is hernia at that location. Patient's last colonoscopy was at [facility] had a polyp at that time patient [...] ulcers, No gallbladder problem and No black,tarry (more content not included)... [facility] 01-25-2025 Evaluation note Diagnosis Onset Date Resolution Encounter for routine gynecological examination noneactive January 25, 2025 8:54am [facility] Work Phone: 1(951) 606-604007-18-2025 Evaluation note* Diagnosis Onset Date Resolution Status Admit Date Encounter for routine gynecological examination noneactive January 082024 8:54am Fecal occult blood test positive acute February 01, 2025 9:43am Hx of colonic polyp acute February 01, 2025 9:43am Hernia, inguinal, right inactive J martin 2024 9:43am [facility] Work Phone: 1(452) 177-224807-18-2025 Progress [facility] [address], [address] [place] [address] OFFICE VISIT Date of Service: 01/25/25 MR#: [id number] Acct: [id number] Name: NATALI MONDRAGON Rep #: [id number] : 1950 Provider: Dr. 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 Author Type: Physical [...] CARE PLAN OF CARE UPDATE: Assessment: Natali Tracy Giancarlo is discontinued from Physical Therapy services due to goal achievement. and maximal benefit.. Patient was seen for 2 visits from Start of Care Date: 09/27/24 to 10/26/2024 and treatment included: Therapeutic exercise. Goals updated 10/26/2024 Goals for Episode of Care: established 09/27/24 [employer] in home exercise program. - MET Perform [...] Session Stop Time : 1139 Thaddeus Shaw [facility]04-18-2025 History of Present illness Narrative* Thaddeus Shaw, PT - 10/26/2024 10:59 AM EDT Images [...] Goals for Episode of Care: established 09/27/24 [employer] in home exercise program. - MET Perform [...] 1139 Thaddeus Shaw PT documented in this encounter[facility]25 NoteHNO ID: [id number] Author: THADDEUS SHAW PT Service: ? Author [...] Goals for Episode of Care: established 09/27/24 [employer] in home exercise program. Perform stair negotiation [...] Planned: 4 Planned Treatment Interventions: Therapeutic exercise (08238), Neuromuscular re-education (52552), Manual therapy (38404), Therapeutic activities (51789), Self-mcfp management (43046), Gait Training (21613), Patient/Family/Caregiver Education PLAN FOR NEXT VISIT: Patient [...] (timed and u (more content not included)... [facility]03-20-2025 History of Present illness Narrative* Thaddeus [...] Goals for Episode of Care: established 09/27/24 [employer] in home exercise program. Perform stair negotiation [...] Planned: 4 Planned Treatment Interventions: Therapeutic exercise (06812), Neuromuscular re- education (11053), Manual therapy (21756), Therapeutic activities (20009), Self- mcfp management (26646), Gait Training (74800), Patient/Family/Caregiver Education PLAN FOR NEXT VISIT: Patient [...] 1432 Thaddeus Shaw PT documented in this encounterUniversity [facility]25 History of Present illness Narrative* Howie Acuna [...] PATIENT PRESENTS WITH AN IMPLANTABLE OR ATTACHED SENIOR SALES ADMINISTRATOR: No RADIOLOGY DEPARTMENT: General X-ray: Exam(s) Completed: Lower Extremity X- Ray(s): Knee, AP / Lat / Tunne / Merchant Left and Wt. Bearing PERIPHERAL IV DATA: Not applicable SIGNED BY: RT Cecilia(Rossana) September 10, 2024 1:17 PM documented in this encounterUniversity Hospitals [facility]03-03-2025 NoteHNO ID: [id number] Author: HOWIE ACUNA RT(R) Service: Radiology Author [...] PATIENT PRESENTS WITH AN IMPLANTABLE OR ATTACHED SENIOR SALES ADMINISTRATOR: No RADIOLOGY DEPARTMENT: General X-ray: Exam(s) Completed: Lower Extremity X-Ray(s): Knee, AP / Lat / Tunne / Merchant Left and Wt. Bearing PERIPHERAL IV DATA: Not applicable SIGNED BY: RT Cecilia(R) September 10, 2024 1:17 [facility]03-03-2025 Instructions* Patient Instructions* Marivel Dash, HOUSE SERVANT.ART SALES CONSULTANT - 09/10/2024 12:55 PM EST Screening schedule [...] review all the medicines you take, even lipf-vlb-nobpaat medicines. As you get older, the way [...] have certain medical conditions. [place] [address]-[place]-2025 NoteHNO ID: [id number] Author: MARIVEL DASH APRN.RICHARD Service: ? Author Type: Nurse Practitioner Type: [...] General (Internal Medicine) Marivel Dash APRN.RICHARD as Day Camp Unit Leader (Internal Medicine) Diane Pacheco, gynecology urology. Clifford gynecology: Dr. Arriaga. [facility]. Optometry in [place]. Medical/Family history review Reviewed and updated problem [...] Pain is gr (more content not included)... [facility]03-03-2025 History of Present illness Narrative* Marivel Dash APRN.RICHARD - 09/10/2024 12:52 PM EST Images from [...] PCP - General (Internal Medicine) Marivel Dash APRN.CNP as Day Camp Unit Leader (Internal Medicine) Diane Pacheco, gynecology urology. Clifford gynecology: Dr. Arriaga. [facility]. Optometry in [place]. Medical/Family history review Reviewed and updated problem [...] ICD9: 311, ICD10: F32.A Stable Marivel Dash APRN.CNP Medical Decision Making: Problems: Low: Acute, uncomplicated illness or injury Moderate: 2+ stable chronic illnesses Data: Unique test result(s) reviewed: 1 Unique test(s) ordered: 1 Risk: Low: Low risk from testing/treatment Moderate: Drug management Medical Decision Making Level: 4 - Moderate [place] [address]-[place]2025 NoteHNO ID: [id number] Author: HUGO RO MD Service: ? Author Type: Physician Type: Progress Notes Filed: 08/16/2024 11:52 Note Text: This note was created using [employer] Epigeneticsriter. Subjective Natali Mondragon is a 73 year [...] 401.9, ICD10: I10 - Controlled Hugo Ro [facility]02-06-2025 History of Present illness Narrative* Hugo Ro MD - 08/16/2024 11:40 AM EST This note was created using NoteWriter. Subjective [...] Controlled Hugo Ro MD documented in this encounterUniversity [facility]als [facility]02-03-2025 NoteHNO ID: [id number] Author: MAURICE KAUR APRN.ART SALES CONSULTANT Service: ? Author Type: Nurse Practitioner Type: [...] Patient's caregiver was agreeable will take her now.[facility]02-03-2025 History of Present illness Narrative* Maurice Kaur APRN.ART SALES CONSULTANT - 08/13/2024 6:03 PM EST Came in [...] will take her now. documented in this encounterUniversity Hospitals Parma [facility] Center11-01-2024 NoteHNO ID: [id number] Author: HUGO RO MD Service: ? Author Type: Physician Type: Progress Notes Filed: 05/11/2024 08:53 Note Text: This note was created using [employer]. Subjective Patient presents with: Recheck: 2 week [...] 401.9, ICD10: I10 - Controlled Hugo Ro [facility]11-01-2024 History of Present illness Narrative* Hugo Ro MD - 05/11/2024 8:42 AM EDT This note was created using [employer] Epigenetics[employer]. Subjective Patient presents with: Recheck: 2 week [...] Controlled Hugo Ro MD documented in this encounterUniversity Hospitals Parma [facility] Center10-18-2024 Instructions* Patient Instructions* Hugo Ro MD - 04/27/2024 2:19 PM EDT Labs today. Hydrate well. Go to ER if worse. documented in this encounterUniversity Hospitals Parma Medical Center10-18-2024 NoteHNO ID: [id number] Author: HUGO RO MD Service: ? Author Type: Physician Type: Progress Notes Filed: 04/27/2024 16:28 Note Text: This note was created using [employer] Epigenetics[employer]. Subjective Natali Mondragon is a 73 year [...] 6.5 PROTEIN UA (PO (more content not included)...[facility] 04-27-2024 History of Present illness Narrative* Hugo Ro MD - 04/27/2024 2:00 PM EDT This note was created using [employer]. Subjective Natali Mondragon is a 73 year [...] today. Hugo Ro MD documented in this encounterUniversity Hospitals Parma Medical Center10-10-2024 History of Present illness Narrative* Hardik Parker, [...] PATIENT PRESENTS WITH AN IMPLANTABLE OR ATTACHED SENIOR SALES ADMINISTRATOR: No RADIOLOGY DEPARTMENT: General X-ray: Exam(s) Completed: Chest X-Ray PERIPHERAL IV DATA: Not applicable SIGNED BY: RT Rocky(Rossana) April 19, 2024 5:29 PM documented in this encounterUniversity Hospitals Parma Medical Center10-10-2024 NoteHNO ID: [id number] Author: HARDIK PARKER RT(R) Service: ? Author Type: Traveling Sales Executive Type: Progress Notes Filed: 04/19/2024 17:36 Note [...] PATIENT PRESENTS WITH AN IMPLANTABLE OR ATTACHED SENIOR SALES ADMINISTRATOR: No RADIOLOGY DEPARTMENT: General X-ray: Exam(s) Completed: Chest X-Ray PERIPHERAL IV DATA: Not applicable SIGNED BY: ANNELISE Hidalgo) April 19, 2024 5:29 [facility]10-10-2024 NoteHNO ID: [id number] Author: FRANCINE CALLAWAY APRN.RICHARD Service: ? Author Type: Nurse Practitioner Type: Progress Notes Filed: 04/19/2024 17:50 Note Text: This note was created using [employer]. Subjective Naatli Mondragon is a 73 year old female. [...] ONDANSETRON 4 MG DISINTEGRATING TABLET Francine Callaway APRN.[facility]10[facility] History of Present illness Narrative* Francine Callaway APRN.RICHARD - 04/19/2024 5:07 PM EDT This note was created using [employer]. Subjective Natali Mondragon is a 73 year [...] ONDANSETRON 4 MG DISINTEGRATING TABLET Francine Callaway APRN.RICHARD documented in this encounterUniversity Hospitals Parma Medical Center07-12-2024 History of Present illness Narrative* Sobia Shirley MA - 01/20/2024 12:10 PM EDT POPULATION HEALTH NAVIGATION OUTREACH Action/ Patient outreach for [place] Medication Adherence Medication(s) Reviewed: ATORVASTATIN 10 MG TABLET Next fill date: 01/04/2024 Outcome: Per Medication Dispense History patient has filled the above prescription(s) on 01/06/2024. No patient outreach needed. Reason for Outreach Med Adherence Patient Contacted: No outreach needed: RX filled per reconcile dispense Navigation Signature: Sobia Shirley MA January 20, 2024 12:10 PM documented in this encounterUniversity Hospitals Parma Medical Center07-10-2024 Instructions* Patient Instructions* Hugo Ro MD - [...] schedule this for you. documented in this encounterUniversity Hospitals Parma Medical Center07-10-2024 History of Present illness Narrative* Hugo Ro MD - 01/18/2024 10:51 AM EDT This note was created using [employer]. Subjective Natali Mondragon is a 73 year [...] TABLET Hugo Ro MD documented in this encounterUniversity Hospitals Parma [facility] Center06-27-2024 Telephone encounter Note * Telephone Encounter - [...] Ricarda Back January 05, 2024 10:01 AM [facility]06-27-2024 Miscellaneous Notes* Telephone Encounter - Ricarda Alvarenga [...] 05, 2024 10:01 AM documented in this encounterUniversity Hospitals Parma Medical Center04-01-2024 History of Present illness Narrative* Shahnaz Medina, RT(R) - 10/10/2023 8:00 AM EDT Radiology [...] PATIENT PRESENTS WITH AN IMPLANTABLE OR ATTACHED SENIOR SALES ADMINISTRATOR: No RADIOLOGY DEPARTMENT: General X-ray: Exam(s) Completed: Rib X-Ray: Right PERIPHERAL IV DATA: Not applicable SIGNED BY: RT Elda(R) October 10, 2023 8:08 AM documented in this encounterUniversity Hospitals Parma Medical Center04-01-2024 History of Present illness Narrative* Latisha Jansen PA-C - 10/10/2023 7:57 AM EDT This note was created using [employer]. Subjective Natali Mondragon is a 72 year [...] RIGHT Latisha Jansen PA-C documented in this encounterUniversity Hospitals Parma Medical Center12-01-2023 History of Present illness Narrative* Katheryn Kaplan MA - 06/10/2023 9:35 AM EST POPULATION HEALTH NAVIGATION OUTREACH Action/ 2nd attempt from May medication adherence outreach [...] Reason for Outreach Med Adherence Payer: Payor: ANTHEM Wevod / Plan: ANTHEM clipsyncBLWho Works Around You HMO / Product Type: HMO / Care Gap Reviewed:: N/A Reminder: Reminder note to check Health Maintenance for items below Health Maintenance items due: RSV Vaccine(1 - 1-dose 60+ series) Never done Pneumococcal Vaccine: 65+(1 - PCV) Never done Advance Directive Discussion due on 07/11/2022 Influenza Vaccine(1) due on 03/11/2023 Covid-19 Vaccine( season) due on 03/11/2023 Colorectal Cancer Screening due on 06/09/2023 Mammogram Screening due on 06/23/2023 Navigation Signature: Katheryn Kaplan MA June 10, 2023 9:35 AM documented in this encounterUniversity Hospitals Parma Medical Center11-30-2023 History of Present illness Narrative* Katheryn Kapaln MA - 06/09/2023 1:53 PM EST POPULATION [...] for Outreach Med Adherence Payer: Payor: KENNY BENNETT [employer]oku BRANDY Corso12 / Plan: STARL[employer]worthy HMO / Product Type: HMO / Care Gap Reviewed:: N/A Reminder: Reminder note to check Health Maintenance for items below Health Maintenance items due: RSV Vaccine(1 - 1-dose 60+ series) Never done Pneumococcal Vaccine: 65+(1 - PCV) Never done Advance Directive Discussion due on 07/11/2022 Influenza Vaccine(1) due on 03/11/2023 Covid-19 Vaccine( season) due on 03/11/2023 Colorectal Cancer Screening due on 06/09/2023 Mammogram Screening due on 06/23/2023 Navigation Signature: Katheryn Kaplan MA June 09, 2023 1:53 PM documented in this encounterUniversity Hospitals Parma [facility] Center09-26-2023 Miscellaneous Notes* Telephone Encounter - Maritza Panchal [...] patient. Maritza Panchal LPN documented in this encounterUniversity Hospitals Parma Medical Center06-22-2023 Miscellaneous Notes* Telephone Encounter - Demetria Avila LPN - 12/30/2022 1:47 PM EDT Pcp review sleep study from [facility] and PAP titration study recommended. Pcp signed order this was faxed back to [facility] and they will contact pt to arrange. Dx is DESIRAE. Called pt and all reviewed. documented in this encounterUniversity Hospitals Parma Medical Center06-19-2023 Instructions* Patient Instructions* Hugo Ro MD - 12/27/2022 6:27 PM EDT We will wait for sleep study report. See medication list for changes. We stopped nortriptyline. documented in this encounterUniversity Hospitals Parma Medical Center06-19-2023 History of Present illness Narrative* Hugo Ro MD - 12/27/2022 6:07 PM EDT This note was created using [employer] Ep[employer]. Subjective Patient presents with: Follow-up - Sleep [...] report. Hugo Ro MD documented in this encounterUniversity Hospitals Parma Medical Center06-19-2023 History of Present illness Narrative* Katheryn Kiaser - 12/27/2022 4:01 PM EDT POPULATION HEALTH NAVIGATION OUTREACH Action/FYI 2nd attempt, vm full Patient Identified by Name and : NO Outreach Outcome/Action Unable to reach patient: Phone number not valid / voicemail full Did you use a PCP flex slot to schedule this appointment? No Reason for Outreach Care Gap or Scheduling/Wellness visits Payer: Payor: HUMANA MEDICARE / Plan: HUMANA GOLD PLUS / Product Type: HMO / Care Gap Reviewed:: Specialty Scheduling Reminder: Reminder note to check Health Maintenance for items below Health Maintenance items due: BP CONTROLLED (<130/80) due on 04/29/2022 ADVANCE DIRECTIVE DISCUSSION due on 07/11/2022 Navigation Signature: Katheryn Saab December 27, 2022 4:01 PM documented in this encounterUniversity Hospitals Parma [facility] Center06-14-2023 History of Present illness Narrative* Katheryn Saab [...] Payer: Payor: HUMANA MEDICARE / Plan: HUMANA GOLD PLUS / Product Type: HMO / Care Gap Reviewed:: Specialty Scheduling Reminder: Reminder note to check Health Maintenance for items below Health Maintenance items due: BP CONTROLLED (<130/80) due on 04/29/2022 ADVANCE DIRECTIVE DISCUSSION due on 07/11/2022 Navigation Signature: Katheryn Saab December 22, 2022 3:48 PM documented in this encounterUniversity Hospitals Parma Medical Center06-08-2023 Miscellaneous Notes* Telephone Encounter - Debbie Bob [...] PCP for repeat UA. documented in this encounterUniversity Hospitals Parma Medical Center06-05-2023 Miscellaneous Notes* Telephone Encounter - Madhuri Rhodes [...] sparingly. Follow-up with PCP. documented in this encounterUniversity Hospitals Parma Medical Center06-05-2023 History of Present illness Narrative* Raman Shahid [...] IV DATA: Not applicable SIGNED BY: RT Tessie(Rossana) December 13, 2022 10:07 AM documented in this encounterUniversity Hospitals Parma Medical Center06-05-2023 History of Present illness Narrative* Latisha Jansen PA-C - 12/13/2022 10:09 AM EDT This note was created using [employer]. Subjective Natali Mondragon is a 71 year [...] R31.29 Latisha Jansen PA-C documented in this encounterUniversity Hospitals Parma Medical Center03-15-2023 Miscellaneous Notes* Telephone Encounter - Madhuri Rhodes - 09/22/2022 7:58 AM EDT Patient given results and verbalized understanding of instructions given. Madhuri Rhodes * Telephone Encounter - Latisha Jansen PA-C - 09/22/2022 7:54 AM EDT Let patient know their covid19/influenza test was negative. documented in this encounterUniversity Hospitals Parma Medical Center03-14-2023 History of Present illness Narrative* Maurice Kaur APRN.[facility] - 09/21/2022 12:40 PM EDT CC: Patient [...] plan. Maurice Kaur APRN.CNP documented in this encounterUniversity Hospitals Parma Medical Center12-21-2022 Miscellaneous Notes* Telephone Encounter - Madhuri Rhodes - 06/30/2022 7:28 AM EST Patient given results and verbalized understanding of instructions given. Madhuri Rhodes * Telephone Encounter - Tayler Beard APRN.CNP - 06/30/2022 7:21 AM EST COVID, Influenza, and RSV are negative. Continue treatment plan discussed at time of exam. Follow up with primary care doctor as needed. documented in this encounterUniversity Hospitals Parma Medical Center12-20-2022 Instructions* Patient Instructions* Les Ramos APRN.RICHARD - 06/29/2022 3:14 PM EST How to [...] or concerning to you. documented in this encounterUniversity Hospitals Parma Medical Center12-20-2022 History of Present illness Narrative* Les Ramos [...] of care. This note was generated using Kanshu software. It may contain errors in wording, punctuation, or spelling. Les Ramos APRN.CNP \ documented in this encounterUniversity Hospitals Parma Medical Center12-14-2022 History of Present illness Narrative* Nayeli De La Cruz RT(R) - 06/23/2022 7:10 AM EST Radiology Service [...] IV DATA: Not applicable SIGNED BY: RT Laura(R) June 23, 2022 7:13 AM documented in this encounterUniversity Hospitals Parma Medical Center11-14-2022 History of Present illness Narrative* Hugo Ro MD - 05/24/2022 6:46 PM EST This note was created using [employer]. Subjective Natali Mondragon is a 71 year [...] sexual function, balance, teeth/dentures: Not at all [place] anxious, stressed, angry, irritable, lonely, isolated, or [...] Outside specialists seen: Diane Pacheco, gynecology urology. [place] gynecology: Dr. Arriaga. [facility]. Optometry in [place]. Medical/Family history review Reviewed and updated problem [...] ordered - Depression screening documented in this encounterUniversity Hospitals Parma Medical Center09-27-2022 Miscellaneous Notes* Telephone Encounter - Xiomara Early LUCI - 04/06/2022 10:36 AM EDT Patient has [...] Early LPN * Telephone Encounter - Ashley Junior Pss - 04/05/2022 11:42 AM EDT Patient is [...] to the pharmacy. Please call patient at: [phone]. Ashley Junior Pss documented in this encounterUniversity Hospitals Parma Medical Center07-21-2022 History of Present illness Narrative* Thaddeus Shaw, PT - 01/28/2022 7:30 AM EDT Episode [...] 51 Thaddeus Shaw PT documented in this encounterUniversity Hospitals Parma Medical Center07-07-2022 History of Present illness Narrative* Thaddeus Shaw [...] of Care: created on 12/17/21 through 02/11/22 [employer] in home exercise program. - Met Increase [...] Patient to be seen for Therapeutic exercise (45456);Neuromuscular re-education (57367);Manual therapy (28138);Self-mcfp management (74858);Patient/Family/Caregiver Education PLAN FOR NEXT VISIT: Progress exercises [...] 42 Thaddeus Shaw PT documented in this encounterUniversity Hospitals Parma Medical Center06-28-2022 Miscellaneous Notes* Telephone Encounter - Doug Anderson Ma - 01/05/2022 4:12 PM EDT VAL: 12/10/2021 Last refill: 03/18/2021 QTY: 90 Refills: 3 * Telephone Encounter - Roseann Back - 01/05/2022 3:03 PM EDT Patient has been identified by name and date of : Yes Pending Prescriptions Disp Refills OMEPRAZOLE 40 MG CAPSULE,DELAYED RELEASE 90 capsule 3 Sig: Take 1 capsule by mouth once daily. 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 Patient aware RX will be sent to pharmacy. No need to notify patient. Roseann Back documented in this encounterUniversity Hospitals Parma Medical Center06-23-2022 History of Present illness Narrative* Thaddeus Shaw PT - 12/31/2021 8:21 AM EDT Episode Visit Count: 3 Therapist That Will Oversee The Plan Of Care: Thaddeus Shaw Start of Care Date: 12/17/21 Onset Date: 09/16/21 Plan of Care Certification Date: 12/17/21 Next Certification Due Date: 01/21/22 Patient Identified by Name and Date of : Yes REHABILITATION AND SPORTS THERAPY PHYSICAL THERAPY TREATMENT NOTE ASSESSMENT: Natali Tracy Giancarlo tolerated the session with no issues. She [...] 38 Thaddeus Shaw PT documented in this encounterUniversity Hospitals Parma Medical Center06-09-2022 History of Present illness Narrative* Thaddeus Shaw [...] of Care: created on 12/17/21 through 02/11/22 [employer] in home exercise program. Increase ROM of [...] Planned: 4 Planned Treatment Interventions: Therapeutic exercise (57734);Neuromuscular re- education (02074);Manual therapy (98584);Self-mcfp management (33721);Patient/Family/Caregiver Education PLAN FOR NEXT VISIT: L GH [...] Independent without limitations Relevant History Preferred Language: Ethiopian Right or Left Handed: Right Intake Information: [...] 45 Thaddeus Shaw PT documented in this encounterUniversity Hospitals Parma Medical Center06-03-2022 Miscellaneous Notes* Telephone Encounter - Doug Anderson Ma - 12/11/2021 10:11 AM EDT Please see both phone encounters. * Telephone Encounter - Doug Anderson Ma - 12/11/2021 9:32 AM EDT Left message to call office. 12/11/2021 9:32 AM Doug Anderson Ma * Telephone Encounter - Doug Andreson Ma - 12/11/2021 9:32 AM EDT ----- Message from Hugo Ro MD sent at 12/10/2021 6:58 PM EDT ----- Moderate degenerative joint disease. Consider orthopedics if not better with PT. documented in this encounterUniversity Hospitals Parma Medical Center06-02-2022 History of Present illness Narrative* Howie Acuna [...] 10, 2021 9:44 AM documented in this encounterUniversity Hospitals Parma Medical Center06-02-2022 History of Present illness Narrative* Hugo Ro MD - 12/10/2021 9:11 AM EDT This note was created using [employer]. Subjective Natali Mondragon is a 70 year [...] requests for orthotics of various joints from [employer]. She did not need any orthotics. These were from telemarketers. Hugo Ro MD documented in this encounterUniversity Hospitals Parma Medical Center04-22-2022 Miscellaneous Notes* Telephone Encounter - Malia La [...] you. 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 MRI in chart CHEST WALL PAIN/EORDER FOR RAD 10/07/21 Amb Documentation HYSTER D&C HYSTER D&C HYSTER D&C Reason for Visit Anxiety Chest wall pain Endometrial thickening on ultrasound Hyperlipidemia Urinary urgency Hypertension Endometrial thickening on ultrasound [facility] Work Phone: 1(166) 138-543107-27-2021 History of Present illness Narrative* Shahnaz Medina [...] 03, 2021 9:41 AM documented in this encounterUniversity Hospitals Parma Medical Center12-29-2020 History of Past illness Narrative* Problem Noted [...] of this encounter (statuses as of 10/30/2021) [facility]12[facility] History of Past illness Narrative* Problem Noted [...] of this encounter (statuses as of 12/10/2021) [facility]12[facility] History of Past illness Narrative* Problem Noted [...] of this encounter (statuses as of 12/14/2021) [facility]12[facility] History of Past illness Narrative* Problem Noted [...] of this encounter (statuses as of 2021) [facility]12[facility] History of Past illness Narrative* Problem Noted [...] of this encounter (statuses as of 12/31/2021) [facility]12[facility] History of Past illness Narrative* Problem Noted [...] of this encounter (statuses as of 01/06/2022) [facility]12[facility] History of Past illness Narrative* Problem Noted [...] of this encounter (statuses as of 01/14/2022) [facility]12[facility] History of Past illness Narrative* Problem Noted [...] of this encounter (statuses as of 01/28/2022) [facility]12[facility] History of Past illness Narrative* Problem Noted [...] of this encounter (statuses as of 04/06/2022) [facility]12[facility] History of Past illness Narrative* Problem Noted [...] of this encounter (statuses as of 05/25/2022) [facility]12[facility] History of Past illness Narrative* Problem Noted [...] of this encounter (statuses as of 06/29/2022) [facility]12[facility] History of Past illness Narrative* Problem Noted [...] of this encounter (statuses as of 06/30/2022) [facility]12[facility] History of Past illness Narrative* Problem Noted [...] of this encounter (statuses as of 09/21/2022) [facility]12[facility] History of Past illness Narrative* Problem Noted [...] of this encounter (statuses as of 09/22/2022) [facility]12[facility] History of Past illness Narrative* Problem Noted [...] of this encounter (statuses as of 12/13/2022) [facility]12[facility] History of Past illness Narrative* Problem Noted [...] of this encounter (statuses as of 12/13/2022) [facility]12[facility] History of Past illness Narrative* Problem Noted [...] of this encounter (statuses as of 12/16/2022) [facility]12[facility] History of Past illness Narrative* Problem Noted [...] of this encounter (statuses as of 12/23/2022) [facility]12[facility] History of Past illness Narrative* Problem Noted [...] of this encounter (statuses as of 12/28/2022) [facility]12[facility] History of Past illness Narrative* Problem Noted [...] of this encounter (statuses as of 12/28/2022) [facility]12[facility] History of Past illness Narrative* Problem Noted [...] of this encounter (statuses as of 12/30/2022) [facility]12[facility] History of Past illness Narrative* Problem Noted [...] of this encounter (statuses as of 04/09/2023) [facility] of Past illness Narrative* Problem Noted [...] of this encounter (statuses as of 05/15/2023) [facility] of Past illness Narrative* Problem Noted [...] of this encounter (statuses as of 06/09/2023) [facility] of Past illness Narrative* Problem Noted [...] of this encounter (statuses as of 06/10/2023) [facility]12[facility] History of Past illness Narrative* Problem Noted [...] of this encounter (statuses as of 10/10/2023) [facility]12[facility] History of Present illness Narrative* Howie Acuna (Rt), Tech - 06/18/2020 5:50 PM EST Radiology Service [...] 18, 2020 6:36 PM documented in this encounterK[facility] Author Jarod Simms [facility] Note Date/Time February 20, 2025 7: 30am [facility] Medical Records Department [address] [place] [address] Pre-Anesthesia Evaluation 02/20/25 0726 MR#: [id number] Acct: [id number] Name: NATALI MONDRAGON Rep #:[id number] : 1950 74 From: Jarod Coyle PCP: Dr. Hugo Ro MD Status:R EG SDC Y Race: C Location: [place] [address] ASA Classification* ASA Classification ASA Classification: 2 Assessment & Plan Anesthesia* Anesthesia Assessment Anesthesia Assessment: Discussed sedation and/or anesthesia options, risks, benefits, and alternatives with patient/parents/legal guardian/POA. Questions invited. The patient/parents/legal guardian/POA seems to understand and agrees to proceedwith anesthesia plan. Reviewed the physical assessment, medical history, allergy history and patient home medications list prior to surgery/procedure/anesthetic and documented any changes. Performed airway and anesthesia risk assessments. Anesthesia Type Anesthesia Type: MAC History Source History Obtained from:: Patient and Chart Anesthesia Focused Assessment* Temperature: 97.3 F Pulse Rate: 83 Blood Pressure: 104/61 Respiratory Rate: 18 Pulse Ox: 99 Oxygen Delivery Method: Room Air Airway Assessment Mouth opens: >3 cm Mallampati Score: II Teeth Condition: Intact and Missing Neck Range of motion (ROM): Limited ROM Labs Anesthesia Preop lab: CBC WBC 8.5 K/mm3 (4.4-11.0) 02/03/25 21:08/13/24 RBC 4.20 M/mm3 (4.2-5.4) 08/13/24:08/13/24 Hgb 12.5 g/dL (12.0-15.0) 08/13/24 21:08/13/24 Hct 35.9 % (37-47) L 08/13/24:08/13/24 Plt Count 205 K/mm3 (150-450) 08/13/24 21:08/13/24 CHEMISTRY Potassium 3.5 mmol/L (3.5-5.1) 08/13/24:08/13/24 Sodium 140 mmol/L (136-145) 08/13/24:08/13/24 BUN 23 mg/dL (7-18) H 08/13/24:08/13/24 Creatinine 0.89 mg/dL (0.55-1.02) 08/13/24:08/13/24 Glucose 100 mg/dL (74-106) 08/13/24:08/13/24 COAG Pre-Assessment Diagnosis/Proposed Procedure Planned Operative Procedure(s): COLONOSCOPY Anesthesia History 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 When Was Last Pacemaker Check QUESTION #4 FULL TEXT: You/Your Family Experience fever (hyperthermia) with Anesthesia Last Oral Intake Last Oral intake: Last Oral Intake NPO since 22:00 02/20/25 06:59 Meds taken in AM with sips of Yes 02/20/25 06:59 water? Meds patient instructed to take am of surgery PONV PONV - exceptional needs teacher: PONV - exceptional needs teacher Female Yes 02/15/25 10:12 HX of Motion Sickness No 02/15/25 10:12 HX of N/V After Surgery No 02/15/25 10:12 Non-Smoker Yes 02/15/25 10:12 Duration of Surgery greater No 02/15/25 10:12 than 60 minutes Number of Risk Factors 2 02/15/25 10:12 PONV Score Moderate Risk 02/15/25 10:12 Height & Weight Height & Weight: Anesthesia: Height & Weight Height 4 ft 9 in 02/20/25 06:59 Weight: 66 kg 02/20/25 06:59 Body Mass Index (BMI) 31.4 02/20/25 06:59 Respiratory Assessment Respiratory Assessment - exceptional needs teacher: Respiratory Tract Infection Hx - exceptional needs teacher Hx Respiratory Tract Infection No 02/15/25 10:12 STOP Sleep Apnea STOP Sleep Apnea - exceptional needs teacher: STOP Sleep Apnea - exceptional needs teacher Hx Hypertension Yes 02/15/25 10:12 Hx Sleep [...] Tobacco Use History Tobacco Use History - exceptional needs teacher: Tobacco Use History - exceptional needs teacher Tobacco Use Smoking Status Former smoker 02/15/25 10:12 Hx Tobacco Use No 02/15/25 10:12 Years Smoking Packs Smoked per Day Smoking Cessation Date was No - quit smoking greater 02/15/25 10:12 within the last 15 years than 15 years ago Hx Smoking Cessation Date 07/11/99 02/15/25 10:12 Hx Smoking Cessation No 02/15/25 10:12 Counseling Hematologic Medial History Hematologic Hx - exceptional needs teacher: 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 Specify any problems Hx of Preganancy in last 3 No 02/15/25 10:12 Months Nurse Filling Out Transfusion [facility] 02/15/25 10:12 & Questions: Date: 02/15/25 02/15/25 10:12 Time: 10:21 02/15/25 10:12 Patient unable to answer at this time (ie. confused, unrespo /Reproduction History /Reproductive History - exceptional needs teacher: /Reproductive Hx- exceptional needs teacher Hx Now No 02/15/25 10:12 Gestational Age (in weeks): EDC: Hx Hx Para Hx Section SAB No 02/15/25 10:12 Active Medications Active Medications: Current Medications Generic Name Dose Route Start Last Admin Trade Name Freq PRN Reason Stop Dose Admin Lactated Ringer's 1,000 mls @ 15 mls/hr 02/20/25 07:00 02/20/25 07:06 IV 15 mls/hr .Q48H RENETTA Administration PFSH Medical History Post-menopausal Marijuana use Back pain Generalized abdominal pain Genetic testing Status post hysteroscopy Wears glasses Depression Anxiety Arthritis Bladder disease High cholesterol Gastric reflux Shortness of breath on exertion Former smoker CPAP (continuous positive airway pressure) dependence Hypertension Home Medications ?Medication ?Instructions ?Recorded ?Last Taken ?Type amlodipine 10 mg tablet 10 mg PO DAILY 10/07/2102/08 History paroxetine HCl 40 mg tablet (Paxil) 40 mg PO DAILY 02/19/25 History atorvastatin 10 mg tablet 10 mg PO QHS 10/08/21 History cholecalciferol (vitamin D3) 50 50 mcg PO DAILY 02/19/25 History mcg (2,000 unit) capsule multivitamin 1 tab PO DAILY 10/08/2102/08 History omeprazole 40 mg capsule,delayed 40 mg PO DAILY 02/20/25 History release osteo biflex 1 tab PO DAILY 10/08/2102/08 History vibegron 75 mg tablet (Gemtesa) 75 mg PO DAILY 2 02/19/25 History vitamin E 200 unit capsule 200 unit PO DAILY 10/08/21 02/19/25 History Allergy/AdvReac Type Severity Reaction Status Date / Time No Known Allergies Allergy Verified 02/20/25 06:58 Family History Mother Lung cancer Daughter Lung cancer Father Stomach cancer Surgical History S/P dilation and curettage (~10/14/21) History of Social History Smoking Status: Former smoker alcohol intake: current details: occasionally substance use type: does not use caffeine: Yes what type of physical activity do you participate in: none seatbelt use: always do you feel safe at home: Yes additional social history: Review of Systems (Anesthesia) ROS Narrative System reviewed and no additional complaints, except as documented. 02/20/25729 <Electronically signed by Jarod Simms MD> Date _ Jarod Simms MD [facility] Signature: Date CC: ~ Signed [facility] Work Phone: Consult note Author Ronald Rosa [facility] Note Date/Time February 20, 2025 8: 31am [facility] Medical Records Department [address] [place] [address] Anesthesia Postop Eval I 02/20/25 0830 MR#: [id number] Acct: [id number] Name: NATALI MONDRAGON Rossana Rep #:[id number] : 1950 74 From: Ronald Rosa PCP: Dr. Hugo Ro MD Status:R EG SDC Y Race: C Location: [place] [address] Anesthesia: Postop Eval I Current Vital Signs Temperature: 97.7 F Pulse Rate: 80 Blood Pressure: 99/61 Respiratory Rate: 16 Pulse Ox: 100 Oxygen Delivery Method: Room Air Assessment Airway patent: Yes Spontaneous unlabored respirations: Yes Mental status: Awake and Calm nausea: No Vomiting: No Anesthesia Complication: No Fluid Hydration Crystalloid volume administer (ml): 600 Total IV fluid infused: 600 Progress Note Anesthesia document: Postop Eval 1 completed: Yes 02/20/25 0831 <Electronically signed by Ronald Rosa > Date _ Ronald Ramseyignmarty Signature: Date CC: ~ Signed [facility] Work Phone: [employer] note* Diagnosis Onset Date Resolution Status Anxiety acute Chest wall pain acute Endometrial thickening on ultrasound acute Hyperlipidemia acute Urinary urgency acute Hypertension chronic Endometrial thickening on ultrasound acute [facility] Work Phone: [employer] note* Diagnosis Hyperlipidemia, unspecified hyperlipidemia type documented in this encounter [facility]* Diagnosis Hyperlipidemia, unspecified hyperlipidemia type- Primary Insomnia, unspecified type Essential hypertension Unspecified essential hypertension Impingement syndrome of left shoulder Other affections of shoulder region, not elsewhere classified documented in this encounter [facility]* Diagnosis Impingement syndrome of left shoulder Other affections of shoulder region, not elsewhere classified documented in this encounter [facility]* Diagnosis Impingement syndrome of left shoulder- Primary Other affections of shoulder region, not elsewhere classified documented in this encounter [facility]* Diagnosis Gastric ulcer without hemorrhage or perforation, unspecified chronicity [facility]* Diagnosis Impingement syndrome of left shoulder- Primary Other affections of shoulder region, not elsewhere classified documented in this encounter [facility] note* Diagnosis Impingement syndrome of left shoulder- Primary Other affections of shoulder region, not elsewhere classified documented in this encounter [facility] note* Diagnosis Anxiety Anxiety state, unspecified Depression, unspecified depression type [facility]* Diagnosis Medicare annual wellness visit, subsequent- [...] of unspecified site [facility]* Diagnosis Suspected COVID-19 virus infection- Primary [facility]* Diagnosis URI, acute- Primary Acute upper respiratory infections of unspecified site [facility]* Diagnosis Urinary frequency- Primary Acute bilateral low back pain without sciatica Microscopic hematuria documented in this encounter [facility]* Diagnosis Dizziness- Primary Dizziness and giddiness Depression, unspecified depression type Essential hypertension Unspecified essential hypertension Gastroesophageal reflux disease, unspecified whether esophagitis present DESIRAE (obstructive sleep apnea) Obstructive sleep apnea (adult) (pediatric) documented in this encounter [facility] noteNo assessment information [facility]WMer[facility] Work Phone: Evaluation note* Diagnosis Anxiety Anxiety state, unspecified Depression, unspecified depression type documented in this encounter [facility]* Diagnosis Encounter for screening mammogram for malignant neoplasm of breast Other screening mammogram documented [facility] this [facility]* Diagnosis Rib pain on right side- Primary Chest pain, unspecified documented [facility] this [facility]* Diagnosis Hyperlipidemia, unspecified hyperlipidemia type documented [facility] this [facility]* Diagnosis Essential hypertension Unspecified essential hypertension Gastroesophageal reflux disease, unspecified whether esophagitis present Anxiety Anxiety state, unspecified Depression, unspecified depression type documented in this encounter [facility]* Diagnosis Rib pain on right side Chest pain, unspecified documented in this encounter [facility]* Diagnosis Acute bilateral low back pain without sciatica documented [facility] this encounter [facility]* Diagnosis Impingement syndrome of left shoulder Other affections of shoulder region, not elsewhere classified documented in this encounter [facility]* Diagnosis Acute pain of left knee documented in this encounter [facility] note* Diagnosis Nausea- Primary Nausea alone Nausea Nausea alone documented in this encounter [facility] note* Diagnosis Nausea Nausea alone documented in this encounter [facility] note* Diagnosis Nausea and vomiting, unspecified vomiting type- Primary Epigastric pain Abdominal pain, epigastric Dyspnea, unspecified type Dehydration documented in this encounter [facility]* Diagnosis Nausea and vomiting, unspecified vomiting type- Primary Essential hypertension Unspecified essential hypertension documented in this encounter [facility] note* Diagnosis Nausea and vomiting, unspecified vomiting type- Primary Diarrhea, unspecified type documented in this encounter [facility]* Diagnosis Right inguinal hernia- Primary Inguinal hernia without mention of obstruction or gangrene, unilateral or unspecified, (not specified as recurrent) Nausea and vomiting, unspecified vomiting type Essential hypertension Unspecified essential hypertension documented in this encounter [facility]* Diagnosis Medicare annual wellness visit, subsequent- Primary Routine general medical examination at a health care facility Urinary frequency Acute pain of left knee Injury of left knee, initial encounter Essential hypertension Unspecified essential hypertension Anxiety Anxiety state, unspecified Depression, unspecified depression type documented in this encounter [facility] note* Diagnosis Acute pain of left knee Injury of left knee, initial encounter documented in this encounter [facility] note* Diagnosis Acute pain of left knee- Primary Injury of left knee, initial encounter documented in this encounter [facility]* Diagnosis Acute pain of left knee Injury of left knee, initial encounter documented in this encounter [facility] note* Diagnosis Acute pain of left knee- Primary documented in this encounter [facility] note* Diagnosis Onset Date Resolution Status Admit Date Encounter for routine gynecological examination noneactive January 082024 8:54am [facility] Work Phone: Evaluation note* Diagnosis Marijuana dependence (HCC)- Primary Cannabis dependence, unspecified Essential hypertension Unspecified essential hypertension Hyperlipidemia, unspecified hyperlipidemia type Gastroesophageal reflux disease, unspecified whether esophagitis present Anxiety Anxiety state, unspecified Depression, unspecified depression type Tubular adenoma Benign neoplasm of unspecified site Right inguinal hernia Inguinal hernia without mention of obstruction or gangrene, unilateral or unspecified, (not specified as recurrent) documented [facility] this encounter [facility] Author Crys Robotham [facility] Note Date/Time February 20, 2025 7: 30am [facility] Medical Records Department [address] [place] [address] History & Physical Exam 02/20/25716 MR#: [id number] Acct: [id number] Name: NATALI MONDRAGON R Rep #:[id number] : 1950 74 From: Crys Zapien MD PCP: Dr. Hugo Ro MD Status:R EG [facility] Location: [place] [address] History and Physical Date of Admission: 02/20/25 Date of Service: 02/01/25 MR#: [id number] Acct: [id number] Name: NATALI MONDRAGON R Rep #: [id number] : 1950 Provider: Dr. Crys Zapien MD Age/Sex: 74/F Location: [facility] Status: Signed Intake Vital Signs 01/25/2509:01 02/01/2510:20 Height 4 ft 9 in 4 ft 9 in Weight: 148 lb 4 oz 149 lb BMI 32.1 32.2 BP 127/81 H 130/56 H Blood Pressure Location Rt brachial Position Sitting Respiration 16 Intake Visit Reasons: COLONOSCOPY Chief Complaint: c-scope Metal Lather Required: No Is patient in pain?: Yes (generalized abd pain) Allergies No Known Allergies Allergy (Verified 02/01/25 10:21) Medications ?Medication ?Instructions ?Recorded ?Confirmed ?Type amlodipine 10 mg tablet 10 mg PO DAILY 10/07/21 02/01/25 History paroxetine HCl 40 mg tablet (Paxil) 40 mg PO DAILY 10/07/21 02/01/25 History atorvastatin 10 mg tablet 10 mg PO QHS 10/08/21 02/01/25 History cholecalciferol (vitamin D3) 50 50 mcg PO DAILY 10/08/21 02/01/25 Histor y mcg (2,000 unit) capsule multivitamin 1 tab PO DAILY 10/08/21 02/01/25 History omeprazole 40 mg capsule,delayed 40 mg PO DAILY 10/08/21 02/01/25 History release osteo biflex 1 tab PO DAILY 10/08/21 02/01/25 History vibegron 75 mg tablet (Gemtesa) 75 mg PO DAILY 10/08/21 02/01/25 History vitamin E 200 unit capsule 200 unit PO DAILY 10/08/21 02/01/25 Hist ory Have you fallen in the past year?: [...] (~10/14/21) History of Family History Mother Lung cancerDaughter Lung cancerFather Stomach cancer Social History Smoking Status: Former smoker alcohol intake: current details: occasionally substance use type: does not use caffeine: Yes what type of physical activity do you participate in: none seatbelt use: always do you feel safe at home: Yes additional social history: HPI HPI HPI: 74-year-old female presents for colonoscopy due to a positive fecal occult bloodalso abnormal CT scan which showed a right inguinal hernia. Patient had a previous x 2 and does complain of pain in the lower aspect of the scar on occasion. Patient was unaware that there is hernia at that location. Patient's last colonoscopy was at [facility] Cecy had a polyp at that time patient is unsure exactly the timing of the colonoscopy. Patient states her stools are dark brown does occasionally have some constipation issuesbut has bowel movements daily does not see [...] healthy appearing, comfortable and no acute distress HENMT Head: normocephalic and atraumatic Neck Neck: supple Resp Effort & Inspection: normal respiratory effort Cardio Rate: regular rate GI Inspection: non-distended Palpation: soft, hernia other (Inguinal hernia seen on CT with about 3 cm neck.)and tender (At area of right inguinal hernia, mild) Other: Right inguinal hernia difficult to discretely appreciate on exam, tender in thatarea Skin General: no rashes or lesions noted Neuro General: CN's II-XI intact bilaterally Extrem General: normal to inspection Psych Mental Status: mental status grossly normal Attitude: cooperative Assessment and Plan Assessment and Plan (1) Fecal occult blood test positive: Status: Acute (2) Hx of colonic polyp: Status: Acute (3) Hernia, inguinal, right: Status: Inactive Plan Will plan to do a colonoscopy due to the fecal occult blood diagnosis will either be screening due to history depending on her last colonoscopy was once weobtain the records or diagnostic due to the positive fecal occult. Discussed with patient that the pain that she feels at the bottom of her incision is likely due to her inguinal hernia. This is easily reducible as it does have a larger neck. Discussed with patient that if starts to have more issues with that would recommend repair at that time. Patient will let us know if she would like to schedule. I have discussed the above with the patient. I have offered the patient colonoscopy for evaluation. I have explained the risks/benefits of the procedure and described the procedure. I have discussed the risks with the patient, including but not limited to: infection, bleeding, perforation of the GI tract requiring emergency surgery, inability to complete the procedure, injury to any internal organs, complications of anesthesia, etc. - the patient understands and agrees to proceed. I have answered all the patient's questions to the patient's satisfaction and the patient has no further questions. The patient has been given instructions for the colon cleansing preparation. 1 day clears MiraLAX Dulcolax Crys Zapien M.D. Pager: [phone] [facility] [address] [place] [address], [facility], [address] [place] [address] Office: [phone] Coding Level of Care Code Off vis,new,level 3 Diagnoses Fecal occult blood test positive R19.5 Hx of colonic polyp Z86.0100 Hernia, inguinal, right K40.90 Clinical Quality Measures Falls Risk Screening/Assistive Devices Have you fallen in the past year?: No 02/02/25 1109 <Electronically signed by Crys Zapien MD> Date Crys Zapien MD 02/20/25 0717 <Electronically signed by Crys Zapien MD> Cosigner Signature (if applicable): CC: Dr. Crys Zapien MD; Dr. Hugo Ro MD~ Signed ADDENDUM by Dr. Crys Zapien MD on 02/20/25 at 0730 Addendum I have examined the patient and the H&P has been reviewed. There are no clinicalchanges since date of exam. Patient's last colonoscopy was in July 2023. Patient did have 5 polyps at that time. 1 was a tubular adenoma and another couple sessile serrated polyp another couple hyperplastic. 02/20/25 0730<Electronically signed by Crys Zapien MD> Cosigner Signature (if applicable): cc: Dr. Crys Zapien MD; Dr. Hugo Ro MD ~* Signed [facility] Work Phone: Hospital Discharge instructionsAmbulatory Orders* General Surgery Location: None Selected [facility] Work Phone: Progress note Author Kay Cronin [facility] Note Date/Time January 25, 2025 9:32 am [facility] [address] [place] [address], [address] [place] [id number] OFFICE VISIT Date of Service: 01/25/25 MR#: [id number] Acct: [id number] Name: NATALI MONDRAGON Rep #: [id number] : 1950 Provider: Dr. 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) Chief Complaint: Annual Metal Lather Required: No Is patient in pain?: No [...] menopausal: Yes Patient : No : No [facility] Medical History Genetic testing Status post hysteroscopy [...] acute distress, well developed and well groomed [facility] Head: normal to inspection and normocephalic Ears: [...] gynecological examination Z01.419 CPT Codes Endometrial Biopsy (72000) Assessment and Plan Assessment and Plan (1) [...] Cosigner Signature: Date (if applicable) CC: ~ [facility] Work Phone: Reason for referral (narrative)* Diagnostic Procedure Only (Routine) - Pending Review Specialty Diagnoses / Procedures Referred By Ti perez Referred To Contact [facility] Diagnoses Encounter for screening mammogram for malignant neoplasm of breast Procedures HARSHIL SCREENING SCREENING MAMMOGRAPHY BI 2-VIEW BREAST INC Hugo Mccormack MD [address] [place] [address] [facility] [address] [place] [address] Referral ID Status Reason Start Date Expiration Date Visits Requested Visits Authorized [id number] Pending Review Auto-Generat ed Referral 2 06/23/2023 1 1 [facility] for referral (narrative)* Diagnostic Procedure Only (Urgent) - Closed Specialty Diagnoses / Procedures Referred By Contac t Referred To Contact XR IMAGING Diagnoses Acute bilateral low back pain without sciatica Procedures XR LUMBAR GENERAL 3V AP/LAT/L5-S1 RADEX SPINE LUMBOSACRAL 2/3 VIEWS Latisha Jansen PA-C [address] [place] [address] X[facility] Imaging Referral ID Status Reason Start Date Expiration Date V isits Requested Visits Authorized [id number] Closed Auto-Generate d Referral 12/13/2022 01/12/2024 1 1 [facility] for referral (narrative)* Diagnostic Procedure Only (Routine) - Closed Specialty Diagnoses / Procedures Referred By Ti t Referred To Contact [facility] Diagnoses Encounter for screening mammogram for malignant neoplasm of breast Procedures HARSHIL SCREENING SCREENING MAMMOGRAPHY BI 2-VIEW BREAST INC CAD Hugo Ro MD [address] [place] [address] [facility] [address] [place] [address] Referral ID Status Reason Start Date Expiration Date V isits Requested Visits Authorized [id number] Closed Auto-Generate d Referral 05/24/2022 06/23/2023 1 1 [facility] for referral (narrative)* Diagnostic Procedure Only (Urgent) - Closed Specialty Diagnoses / Procedures [facility] Referred To Contact X[facility] Diagnoses Rib pain on right side Procedures XR RIBS/CHEST 3V AP RIB/OBLS/CXR RIGHT RADEX RIBS UNI W/POSTEROANT CH MINIMUM 3 VIEWS Latisha Jansen PA-C [address] [place] [address] [place] [address] Referral ID Status Reason Start Date Expiration Date V isits Requested Visits Authorized [id number] Closed Auto-Generate d Referral 10/10/2023 11/08/2024 1 1 [facility] for referral (narrative)* Diagnostic Procedure Only (Urgent) - Closed Specialty Diagnoses / Procedures Referred By Contac t Referred To Contact XR IMAGING Diagnoses Rib pain on right side Procedures XR RIBS/CHEST 3V AP RIB/OBLS/CXR RIGHT RADEX RIBS UNI W/POSTEROANT CH MINIMUM 3 VIEWS Latisha Jansen PA-C [address] [place] [address] [place] [address] Referral ID Status Reason Start Date Expiration Date V isits Requested Visits Authorized [id number] Closed Auto-Generate d Referral 10/10/2023 11/08/2024 1 1 [facility] for referral (narrative)* Diagnostic Procedure Only (Urgent) - Closed Specialty Diagnoses / Procedures [facility] Referred To Contact XR IMAGING Diagnoses Acute bilateral low back pain without sciatica Procedures XR LUMBAR GENERAL 3V AP/LAT/L5-S1 RADEX SPINE LUMBOSACRAL 2/3 VIEWS Latisha Jansen PA-C [address] [place] [address] [place] [address] Referral ID Status Reason Start Date Expiration Date V isits Requested Visits Authorized [id number] Closed Auto-Generate d Referral 12/13/2022 01/12/2024 1 1 [facility] for referral (narrative)* Diagnostic Procedure Only (Routine) - Closed Specialty Diagnoses / Procedures Referred By Contac t Referred To Contact XR IMAGING Diagnoses Impingement syndrome of left shoulder Procedures XR SHOULDER GENERAL 3V OR MORE AP/TRUE AP/OTHER LEFT RADEX SHOULDER COMPLETE MINIMUM 2 VIEWS Hugo Ro MD [address] [place] [address] [place] [address] Referral ID Status Reason Start Date Expiration Date V isits Requested Visits Authorized [id number] Closed Auto-Generate d Referral 12/10/2021 01/09/2023 1 1 [facility] for referral (narrative)* Outpatient Procedure (Routine) - New Request Specialty Diagnoses / Procedures Referred By Ti perez Referred To Contact [facility] Diagnoses Epigastric pain Procedures ECG COMPLETE ECG ROUTINE ECG W/LEAST 12 LDS W/I&R Hugo Ro MD [address] [place] [address] [facility] [address] [place] [address] Referral ID Status Reason Start Date Expiration Date Visits Requested Visits Authorized [id number] New Request Auto-Generat ed Referral 04/27/2025 1 1 [facility] for visit Narrative* Diagnostic Procedure Only (Routine) - Closed Specialty Diagnoses / Procedures Referred By Ti perez Referred To Contact BR IMAGING Diagnoses Encounter for screening mammogram for malignant neoplasm of breast Procedures HARSHIL SCREENING SCREENING MAMMOGRAPHY BI 2-VIEW BREAST INC CAD Hugo Ro MD [address] [place] [address] [facility] [address] [place] [address] Referral ID Status Reason Start Date Expiration Date V isits Requested Visits Authorized [id number] Closed Auto-Generate d Referral 05/24/2022 06/23/2023 1 1 [facility] for visit Narrative* Diagnostic Procedure Only (Urgent) - Closed Specialty Diagnoses / Procedures Referred By Ti perez Referred To Contact XR IMAGING Diagnoses Rib pain on right side Procedures XR RIBS/CHEST 3V AP RIB/OBLS/CXR RIGHT RADEX RIBS UNI W/POSTEROANT CH MINIMUM 3 VIEWS Latisha Jansen PA-C [address] [place] [address] [place] [address] Referral ID Status Reason Start Date Expiration Date V isits Requested Visits Authorized [id number] Closed Auto-Generate d Referral 10/10/2023 11/08/2024 1 1 [facility] for visit Narrative* Diagnostic Procedure Only (Urgent) - Closed Specialty Diagnoses / Procedures Referred By Contac t Referred To Contact XR IMAGING Diagnoses Acute bilateral low back pain without sciatica Procedures XR LUMBAR GENERAL 3V AP/LAT/L5-S1 RADEX SPINE LUMBOSACRAL 2/3 VIEWS Latisha Jansen, PA-C [address] [place] [address] [place] [address] Referral ID Status Reason Start Date Expiration Date V isits Requested Visits Authorized [id number] Closed Auto-Generate d Referral 12/13/2022 01/12/2024 1 1 [facility] for visit Narrative* Diagnostic Procedure Only (Routine) - Closed Specialty Diagnoses / Procedures Referred By Contac t Referred To Contact XR IMAGING Diagnoses Impingement syndrome of left shoulder Procedures XR SHOULDER GENERAL 3V OR MORE AP/TRUE AP/OTHER LEFT RADEX SHOULDER COMPLETE MINIMUM 2 VIEWS Hugo Ro MD [address] [place] [id number] [place] [address] Referral ID Status Reason Start Date Expiration Date V isits Requested Visits Authorized [id number] Closed Auto-Generate d Referral 12/10/2021 01/09/2023 1 1 [facility] for visit Narrative* Diagnostic Procedure Only (Routine) - Closed Specialty Diagnoses / Procedures Referred By Contac t Referred To Contact XR IMAGING Diagnoses Acute pain of left knee Injury of left knee, initial encounter Procedures XR KNEE GENERAL 4V AP BOTH/PA BOTH/LAT/MERC LEFT RADIOLOGIC EXAM KNEE COMPLETE 4/MORE VIEWS Marivel Dash, HOUSE SERVANT.ART SALES CONSULTANT [address] [place] [address] Phone: tel: fax: [place] [address] Referral ID Status Reason Start Date Expiration Date V isits Requested Visits Authorized [id number] Closed Auto-Generate d Referral 09/10/2024 10/10/2025 1 1 [facility] Family History No Family History Records Found Relationship Condition Age at Onset Recorded Date/T cori mother Malignant neoplasm of lung Unknown daughter Malignant neoplasm of lung Unknown father Malignant neoplasm of stomach Unknown Advance Directives No Advanced Directives Records Found Advance Directive Response Recorded Date/ Time Living Will No Serena 4th, 2022 1:50pm Power of Risk Analyst No October 12 1:50pm Documents on File Type Date Recorded 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 Yes February 15, 2025 10:12am Reason for Referral Specialty Diagnoses / Procedures Referred By Contac t Referred To Contact [facility] Diagnoses Impingement syndrome of left shoulder Procedures CONSULT TO PHYSICAL THERAPY PHYSICAL THERAPY EVALUATION HIGH COMPLEX 45 MINS Hugo Ro MD [address] [place] [id number] [facility] [address] [address] Referral ID Status Reason Start Date Expiration Date Visits Requested Visits Authorized [id number] Authorized Auto-Generat ed Referral 07/11/2021 07/10/2022 30 30 Specialty Diagnoses / Procedures Referred By Contac t Referred To Contact XR IMAGING Diagnoses Impingement syndrome of left shoulder Procedures XR SHOULDER GENERAL 3V OR MORE AP/TRUE AP/OTHER LEFT RADEX SHOULDER COMPLETE MINIMUM 2 VIEWS Hugo Ro MD [address] [place] [address] Xr Imaging Referral ID Status Reason Start Date Expiration Date V isits Requested Visits Authorized [id number] Closed Auto-Generate d Referral 12/10/2021 01/09/2023 1 1 Specialty Diagnoses / Procedures Referred By Contac t Referred To Contact [facility] Diagnoses Impingement syndrome of left shoulder Procedures PT REHAB FOLLOW UP ORDER THERAPEUTIC EXERCISES RE, EA 15 MIN. 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) January 25, 2025 8:54 am Reason for Visit Admit Date Encounter for routine gynecological exam ination January 25, 2025 8:54am Fecal occult blood test positive February 012024 9:43am Hx of colonic polyp February 01, 2025 9:43 am Hernia, inguinal, right February 01, 2025 9:43am Summary Purpose Additional Source Comments Goals (unrecognized [...] or prosecute any alcohol or drug abuse patient.[facility] the event this information is protected by the Federal Confidentiality of Alcohol and Drug Abuse Patient Records regulations: The Federal rules restrict any use of the information to criminally investigate or prosecute any alcohol or drug abuse patient.[facility] Center[facility] the event this information is protected by the Federal Confidentiality of Alcohol and Drug Abuse Patient Records regulations: The Federal rules restrict any use of the information to criminally investigate or prosecute any alcohol or drug abuse patient.[facility] Center[facility] the event this information is protected by the Federal Confidentiality of Alcohol and Drug Abuse Patient Records regulations: The Federal rules restrict any use of the information to criminally investigate or prosecute any alcohol or drug abuse patient.[facility] CenterIn the event this information is protected by the Federal Confidentiality of Alcohol and Drug Abuse Patient Records regulations: The Federal rules restrict any use of the information to criminally investigate or prosecute any alcohol or drug abuse patient.[facility] CenterIn the event this information is protected by the Federal Confidentiality of Alcohol and Drug Abuse Patient Records regulations: The Federal rules restrict any use of the information to criminally investigate or prosecute any alcohol or drug abuse patient.[facility] CenterIn the event this information is protected by the Federal Confidentiality of Alcohol and Drug Abuse Patient Records regulations: The Federal rules restrict any use of the information to criminally investigate or prosecute any alcohol or drug abuse patient.[facility] CenterIn the event this information is protected by the Federal Confidentiality of Alcohol and Drug Abuse Patient Records regulations: The Federal rules restrict any use of the information to criminally investigate or prosecute any alcohol or drug abuse patient.[facility] CenterIn the event this information is protected by the Federal Confidentiality of Alcohol and Drug Abuse Patient Records regulations: The Federal rules restrict any use of the information to criminally investigate or prosecute any alcohol or drug abuse patient.[facility] CenterIn the event this information is protected by the Federal Confidentiality of Alcohol and Drug Abuse Patient Records regulations: The Federal rules restrict any use of the information to criminally investigate or prosecute any alcohol or drug abuse patient.[facility] CenterIn the event this information is protected by the Federal Confidentiality of Alcohol and Drug Abuse Patient Records regulations: The Federal rules restrict any use of the information to criminally investigate or prosecute any alcohol or drug abuse patient.[facility] CenterIn the event this information is protected by the Federal Confidentiality of Alcohol and Drug Abuse Patient Records regulations: The Federal rules restrict any use of the information to criminally investigate or prosecute any alcohol or drug abuse patient.[facility] CenterIn the event this information is protected by the Federal Confidentiality of Alcohol and Drug Abuse Patient Records regulations: The Federal rules restrict any use of the information to criminally investigate or prosecute any alcohol or drug abuse patient.[facility] CenterIn the event this information is protected by the Federal Confidentiality of Alcohol and Drug Abuse Patient Records regulations: The Federal rules restrict any use of the information to criminally investigate or prosecute any alcohol or drug abuse patient.[facility] CenterIn the event this information is protected by the Federal Confidentiality of Alcohol and Drug Abuse Patient Records regulations: The Federal rules restrict any use of the information to criminally investigate or prosecute any alcohol or drug abuse patient.[facility] CenterIn the event this information is protected by the Federal Confidentiality of Alcohol and Drug Abuse Patient Records regulations: The Federal rules restrict any use of the information to criminally investigate or prosecute any alcohol or drug abuse patient.[facility] CenterIn the event this information is protected by the Federal Confidentiality of Alcohol and Drug Abuse Patient Records regulations: The Federal rules restrict any use of the information to criminally investigate or prosecute any alcohol or drug abuse patient.[facility] CenterIn the event this information is protected by the Federal Confidentiality of Alcohol and Drug Abuse Patient Records regulations: The Federal rules restrict any use of the information to criminally investigate or prosecute any alcohol or drug abuse patient.[facility] CenterIn the event this information is protected by the Federal Confidentiality of Alcohol and Drug Abuse Patient Records regulations: The Federal rules restrict any use of the information to criminally investigate or prosecute any alcohol or drug abuse patient.[facility] CenterIn the event this information is protected by the Federal Confidentiality of Alcohol and Drug Abuse Patient Records regulations: The Federal rules restrict any use of the information to criminally investigate or prosecute any alcohol or drug abuse patient.[facility] CenterIn the event this information is protected by the Federal Confidentiality of Alcohol and Drug Abuse Patient Records regulations: The Federal rules restrict any use of the information to criminally investigate or prosecute any alcohol or drug abuse patient.[facility] CenterIn the event this information is protected by the Federal Confidentiality of Alcohol and Drug Abuse Patient Records regulations: The Federal rules restrict any use of the information to criminally investigate or prosecute any alcohol or drug abuse patient.[facility] CenterIn the event this information is protected by the Federal Confidentiality of Alcohol and Drug Abuse Patient Records regulations: The Federal rules restrict any use of the information to criminally investigate or prosecute any alcohol or drug abuse patient.[facility] CenterIn the event this information is protected by the Federal Confidentiality of Alcohol and Drug Abuse Patient Records regulations: The Federal rules restrict any use of the information to criminally investigate or prosecute any alcohol or drug abuse patient.[facility] CenterIn the event this information is protected by the Federal Confidentiality of Alcohol and Drug Abuse Patient Records regulations: The Federal rules restrict any use of the information to criminally investigate or prosecute any alcohol or drug abuse patient.[facility] CenterIn the event this information is protected by the Federal Confidentiality of Alcohol and Drug Abuse Patient Records regulations: The Federal rules restrict any use of the information to criminally investigate or prosecute any alcohol or drug abuse patient.[facility] CenterIn the event this information is protected by the Federal Confidentiality of Alcohol and Drug Abuse Patient Records regulations: The Federal rules restrict any use of the information to criminally investigate or prosecute any alcohol or drug abuse patient.[facility] CenterIn the event this information is protected by the Federal Confidentiality of Alcohol and Drug Abuse Patient Records regulations: The Federal rules restrict any use of the information to criminally investigate or prosecute any alcohol or drug abuse patient.[facility] CenterIn the event this information is protected by the Federal Confidentiality of Alcohol and Drug Abuse Patient Records regulations: The Federal rules restrict any use of the information to criminally investigate or prosecute any alcohol or drug abuse patient.[facility] CenterIn the event this information is protected by the Federal Confidentiality of Alcohol and Drug Abuse Patient Records regulations: The Federal rules restrict any use of the information to criminally investigate or prosecute any alcohol or drug abuse patient.[facility] CenterIn the event this information is protected by the Federal Confidentiality of Alcohol and Drug Abuse Patient Records regulations: The Federal rules restrict any use of the information to criminally investigate or prosecute any alcohol or drug abuse patient.[facility] CenterIn the event this information is protected by the Federal Confidentiality of Alcohol and Drug Abuse Patient Records regulations: The Federal rules restrict any use of the information to criminally investigate or prosecute any alcohol or drug abuse patient.[facility] CenterIn the event this information is protected by the Federal Confidentiality of Alcohol and Drug Abuse Patient Records regulations: The Federal rules restrict any use of the information to criminally investigate or prosecute any alcohol or drug abuse patient.[facility] CenterIn the event this information is protected by the Federal Confidentiality of Alcohol and Drug Abuse Patient Records regulations: The Federal rules restrict any use of the information to criminally investigate or prosecute any alcohol or drug abuse patient.[facility] CenterIn the event this information is protected by the Federal Confidentiality of Alcohol and Drug Abuse Patient Records regulations: The Federal rules restrict any use of the information to criminally investigate or prosecute any alcohol or drug abuse patient.[facility] CenterIn the event this information is protected by the Federal Confidentiality of Alcohol and Drug Abuse Patient Records regulations: The Federal rules restrict any use of the information to criminally investigate or prosecute any alcohol or drug abuse patient.[facility] CenterIn the event this information is protected by the Federal Confidentiality of Alcohol and Drug Abuse Patient Records regulations: The Federal rules restrict any use of the information to criminally investigate or prosecute any alcohol or drug abuse patient.[facility] CenterIn the event this information is protected by the Federal Confidentiality of Alcohol and Drug Abuse Patient Records regulations: The Federal rules restrict any use of the information to criminally investigate or prosecute any alcohol or drug abuse patient.[facility] CenterIn the event this information is protected by the Federal Confidentiality of Alcohol and Drug Abuse Patient Records regulations: The Federal rules restrict any use of the information to criminally investigate or prosecute any alcohol or drug abuse patient.[facility] CenterIn the event this information is protected by the Federal Confidentiality of Alcohol and Drug Abuse Patient Records regulations: The Federal rules restrict any use of the information to criminally investigate or prosecute any alcohol or drug abuse patient.[facility] CenterIn the event this information is protected by the Federal Confidentiality of Alcohol and Drug Abuse Patient Records regulations: The Federal rules restrict any use of the information to criminally investigate or prosecute any alcohol or drug abuse patient.[facility] CenterIn the event this information is protected by the Federal Confidentiality of Alcohol and Drug Abuse Patient Records regulations: The Federal rules restrict any use of the information to criminally investigate or prosecute any alcohol or drug abuse patient.[facility] CenterIn the event this information is protected by the Federal Confidentiality of Alcohol and Drug Abuse Patient Records regulations: The Federal rules restrict any use of the information to criminally investigate or prosecute any alcohol or drug abuse patient.[facility] CenterIn the event this information is protected by the Federal Confidentiality of Alcohol and Drug Abuse Patient Records regulations: The Federal rules restrict any use of the information to criminally investigate or prosecute any alcohol or drug abuse patient.[facility] CenterIn the event this information is protected by the Federal Confidentiality of Alcohol and Drug Abuse Patient Records regulations: The Federal rules restrict any use of the information to criminally investigate or prosecute any alcohol or drug abuse patient.[facility] CenterIn the event this information is protected by the Federal Confidentiality of Alcohol and Drug Abuse Patient Records regulations: The Federal rules restrict any use of the information to criminally investigate or prosecute any alcohol or drug abuse patient.[facility] Reason for Visit (unrecogniz ed section and content) Reason Comments PT Discharge Specialty Diagnoses / Procedures Referred By Contac t Referred To Contact [facility] Diagnoses Acute pain of left knee Injury of left knee, initial encounter Procedures CONSULT TO PHYSICAL THERAPY PHYSICAL THERAPY EVALUATION HIGH COMPLEX 45 MINS Marivel Dash, HOUSE SERVANT.ART SALES CONSULTANT [address] [place] [address] Phone: tel: fax: [facility] [address] [place] [phone] Referral ID Status Reason Start Date Expiration Date Visits Requested Visits Authorized [id number] Authorized Auto-Generat ed Referral 07/11/2024 07/10/2025 20 20 Reason Comments PT Progress Note Specialty Diagnoses / Procedures Referred By Contac t Referred To Contact [facility] Diagnoses Impingement syndrome of left shoulder Procedures CONSULT TO PHYSICAL THERAPY PHYSICAL THERAPY EVALUATION HIGH COMPLEX 45 MINS Hugo Ro MD [address] [place] [address] [facility] [place] [address] [place] [id number] Referral ID Status Reason Start Date Expiration Date Visits Requested Visits Authorized [id number] Authorized Auto-Generat ed Referral 07/11/2021 07/10/2022 30 [...] HIGH COMPLEX 45 MINS Hugo Ro MD [facility] [place] [address] [facility] [address] [address] Reason Onset Date Comments Refill Request 01/05/2022 [...] Date Comments Population Health Navigation Outreach 01/20/2024 [facility] Adherence Reason Comments Cough Nausea, SOB, cough, exposure x 6 days Reason Comments Follow Up seen in [facility] care for nausea, c/o nausea, cough ,drng, chills,weak,h/a and sob sicne April Reason Comments Recheck 2 week follow up-tod ay woke up with headache Reason Comments Nausea & Vomiting diarrhea x 1 day Reason Comments ER F/U Reason Comments Medicare Wellness Exam Knee Pain LT x 1 week UTI Urinary frequency/pe lvic pressure x 1 month Reason Comments PT Eval Reason Comments F/U 6 months Care Teams (unrecognized sec tion and content) Cloth Shrinking Machine Operator Relationship Specialty Start Date End Date Hugo Ro MD [address] [place] [address] PCP - General Internal Medicine 04/22/16 Cloth Shrinking Machine Operator Relationship Specialty Start Date End Date Hugo Ro MD [address] [place] [address] PCP - General Internal Medicine 04/22/16 Cloth Shrinking Machine Operator Relationship Specialty Start Date End Date Hugo Ro MD [address] [place] [address] PCP - General Internal Medicine 04/22/16 Cloth Shrinking Machine Operator Relationship Specialty Start Date End Date Hugo Ro MD [address] [place] [address] PCP - General Internal Medicine 04/22/16 Cloth Shrinking Machine Operator Relationship Specialty Start Date End Date Hugo Ro MD [address] [place] [address] PCP - General Internal Medicine 04/22/16 Cloth Shrinking Machine Operator Relationship Specialty Start Date End Date Hugo Ro MD [address] [place] [address] PCP - General Internal Medicine 04/22/16 Cloth Shrinking Machine Operator Relationship Specialty Start Date End Date Hugo Ro MD [address] [place] [address] PCP - General Internal Medicine 04/22/16 Cloth Shrinking Machine Operator Relationship Specialty Start Date End Date Hugo Ro MD [address] [place] [address] PCP - General Internal Medicine 04/22/16 Cloth Shrinking Machine Operator Relationship Specialty Start Date End Date Hugo Ro MD [address] [place] [address] PCP - General Internal Medicine 04/22/16 Cloth Shrinking Machine Operator Relationship Specialty Start Date End Date Hugo Ro MD [address] [place] [address] PCP - General Internal Medicine 04/22/16 Cloth Shrinking Machine Operator Relationship Specialty Start Date End Date Hugo Ro MD [address] [place] [address] PCP - General Internal Medicine 04/22/16 Cloth Shrinking Machine Operator Relationship Specialty Start Date End Date Hugo Ro MD [address] [place] [address] PCP - General Internal Medicine 04/22/16 Cloth Shrinking Machine Operator Relationship Specialty Start Date End Date Hugo Ro MD [address] [place] [address] PCP - General Internal Medicine 04/22/16 Team Status: Active Member Role Status Dates Luz Abdi NP, TRACTOR OPERATOR-C Family Provider Active Dr. Hugo Ro MD Primary Care Provider Active Team Status: Active Member Role Status Dates Dr. Hugo Ro MD Primary Care Provider Active Dr. Diane Pacheco MD Attending Provider, Referring P rovider Active Team Status: Inactive Member Role Status Dates Dr. Hugo Ro MD Primary Care Provider Active Marivel Dickens TRACTOR OPERATOR, TRACTOR OPERATOR-C Attending Provider, Referring Provi tea Active Team Status: Inactive Member Role Status Dates Dr. Hugo Ro MD Primary Care Provider Active Dr. Diane Pacheco MD Attending Provider, Referring P rovider Active Cloth Shrinking Machine Operator Relationship Specialty Start Date End Date Hugo Ro MD [address] [place] [address] PCP - General Internal Medicine 04/22/16 Team Status: Inactive Member Role Status Dates Dr. Hugo Ro MD Primary Care Provider, Atten ding Provider Active Team Status: Inactive Member Role Status Dates Dr. Hugo Ro MD Primary Care Provider Active Dr. Diane Pacheco MD Attending Provider Active Cloth Shrinking Machine Operator Relationship Specialty Start Date End Date Hugo Ro MD [address] [place] [address] PCP - General Internal Medicine 04/22/16 Cloth Shrinking Machine Operator Relationship Specialty Start Date End Date Hugo Ro MD [address] [place] [address] PCP - General Internal Medicine 04/22/16 Cloth Shrinking Machine Operator Relationship Specialty Start Date End Date Hugo Ro MD [address] [place] [address] PCP - General Internal Medicine 04/22/16 Cloth Shrinking Machine Operator Relationship Specialty Start Date End Date Hugo Ro MD [address] [facility] [place] [address] PCP - General Internal Medicine 04/22/16 Cloth Shrinking Machine Operator Relationship Specialty Start Date End Date Hugo Ro MD [address] [place] [address] PCP - General Internal Medicine 04/22/16 Cloth Shrinking Machine Operator Relationship Specialty Start Date End Date Hugo Ro MD [address] [place] [address] PCP - General Internal Medicine 04/22/16 Cloth Shrinking Machine Operator Relationship Specialty Start Date End Date Hugo Ro MD [address] [place] [address] PCP - General Internal Medicine 04/22/16 Cloth Shrinking Machine Operator Relationship Specialty Start Date End Date Hugo Ro MD [address] [place] [address] PCP - General Internal Medicine 04/22/16 Cloth Shrinking Machine Operator Relationship Specialty Start Date End Date Hugo Ro MD [address] [place] [address] PCP - General Internal Medicine 04/22/16 Cloth Shrinking Machine Operator Relationship Specialty Start Date End Date Hugo Ro MD [address] [place] [address] PCP - General Internal Medicine 04/22/16 Cloth Shrinking Machine Operator Relationship Specialty Start Date End Date Hugo Ro MD [address] [place] [address] PCP - General Internal Medicine 04/22/16 Cloth Shrinking Machine Operator Relationship Specialty Start Date End Date Hugo Ro MD [address] [place] [address] PCP - General Internal Medicine 04/22/16 Cloth Shrinking Machine Operator Relationship Specialty Start Date End Date Hugo Ro MD [address] [place] [address] PCP - General Internal Medicine 04/22/16 Cloth Shrinking Machine Operator Relationship Specialty Start Date End Date Hugo Ro MD [address] [place] [address] PCP - General Internal Medicine 04/22/16 Cloth Shrinking Machine Operator Relationship Specialty Start Date End Date Hugo Ro MD [address] [place] [address] PCP - General Internal Medicine 04/22/16 Marivel Dash, HOUSE SERVANT.ART SALES CONSULTANT [address] [place] [address] [employer] Internal Medicine 06/18/24 Cloth Shrinking Machine Operator Relationship Specialty Start Date End Date Hugo Ro MD [address] [place] [address] PCP - General Internal Medicine 04/22/16 Marivel Dash, HOUSE SERVANT.ART SALES CONSULTANT [address] [place] [address] [employer] Internal Medicine 06/18/24 Cloth Shrinking Machine Operator Relationship Specialty Start Date End Date Hugo Ro MD [address] [place] [address] PCP - General Internal Medicine 04/22/16 Marivel Dash, HOUSE SERVANT.ART SALES CONSULTANT [address] [facility] [place] [address] [employer] Unit Leader Internal Medicine 06/18/24 Cloth Shrinking Machine Operator Relationship Specialty Start Date End Date Hugo Ro MD [address] [place] [address] PCP - General Internal Medicine 04/22/16 Marivel Dash, HOUSE SERVANT.ART SALES CONSULTANT [address] [place] [address] [employer] Unit Leader Internal Medicine 06/18/24 Cloth Shrinking Machine Operator Relationship Specialty Start Date End Date Hugo Ro MD [address] [place] [address] PCP - General Internal Medicine 04/22/16 Marivel Dash, HOUSE SERVANT.ART SALES CONSULTANT [address] [place] [address] [employer] Internal Medicine 06/18/24 Cloth Shrinking Machine Operator Relationship Specialty Start Date End Date Hugo Ro MD [address] [place] [address] PCP - General Internal Medicine 04/22/16 Marivel Dash, HOUSE SERVANT.ART SALES CONSULTANT [address] [place] [address] [employer] Unit Leader Internal Medicine 06/18/24 Cloth Shrinking Machine Operator Relationship Specialty Start Date End Date Hugo Ro MD [address] [place] [address] PCP - General Internal Medicine 04/22/16 Marivel Dash, HOUSE SERVANT.ART SALES CONSULTANT [address] [place] [address] [facility] Internal Medicine 06/18/24 Team Status: Active [...] February 01, 2025 End: February 01, 2025 Team Status: Inactive Member Role/Relationship Status Dates Dr. Hugo Ro MD Primary Care Provider Active Start: February 20, 2025 End: February 20, 2025 Dr. Hugo Ro MD Referring Provider Active Start: February 20, 2025 End: February 20, 2025 Dr. Crys Zapien MD Attending Provider Active Start: February 20, 2025 End: February 20, 2025 Team Status: Active Member Role/Relationship Status Dates Dr. Hugo Ro MD Primary Care Provider Active Start: February 20, 2025 Dr. Hugo Ro MD Referring Provider Active Start: February 20, 2025 Dr. Crys Zapien MD Attending Provider Active Start: February 20, 2025 Dr. Crys Zapien MD Other Provider Active S tart: February 20, 2025 Cloth Shrinking Machine Operator Relationship Specialty Start Date End Date Hugo Ro MD [address] [place], [place] [address] PCP - General Internal Medicine 04/22/16 Marivel Dash, HOUSE SERVANT.ART SALES CONSULTANT [address] [place], [place] [address] [employer] Unit Leader Internal Medicine 06/18/24 INFORMATION SOURCE (unrecogn ized section and content) DATE CREATED AUTHOR 02/24/2025 [facility] DATE CREATED AUTHOR AUTHOR'S ORGANIZ ATION 03/11/2025 [facility] FOR RECORDS PERTAINING TO PATIENTS WHO [...] BE BASED ON THE PRIMARY CLINICAL RECORDS. [facility] [employer] provides no warranty or guarantee of the accuracy or completeness of information in this document.
[2025-03-21] MEDS: Lactated Ringers 1,000 ML 15 ML IV (06:38)
[2025-03-21 06:45] LABS: Hematocrit 37.1 % (37-47); Hemoglobin 12.8 g/dL (12.0-15.0); Mean Corp Hgb Conc 34.5 g/dL (32-36); Mean Corpuscular Volume 86.1 fL (81-99); Mean Platelet Vol. 9.5 fl (6.2-12.0); Platelet Count 240 K/mm3 (150-450); RBC Distribution Width CV 12.3 % (11.6-14.6); RBC Distribution Width SD 38.9 fl (35.1-43.9); Red Blood Count 4.31 M/mm3 (4.2-5.4); White Blood Count 7.1 K/mm3 (4.4-11.0)
--- NOTE | 2025-03-21 06:51 | PCM.PRE.AN2 ---
ASA Classification* ASA Classification ASA Classification: 2 Assessment & Plan Anesthesia* Anesthesia Assessment Anesthesia Assessment: Discussed sedation and/or anesthesia options, risks, benefits, and alternatives with patient/parents/legal guardian/POA. Questions invited. The patient/parents/legal guardian/POA seems to understand and agrees to proceed with anesthesia plan. Reviewed the physical assessment, medical history, allergy history and patient home medications list prior to surgery/procedure/anesthetic and documented any changes. Performed airway and anesthesia risk assessments. Anesthesia Type Anesthesia Type: General History Source History Obtained from:: Patient and Chart Anesthesia Focused Assessment* Temperature: 97.7 F Pulse Rate: 77 Blood Pressure: 119/57 Respiratory Rate: 16 Pulse Ox: 98 Oxygen Delivery Method: Room Air Airway Assessment Mouth opens: >3 cm Mallampati Score: IV Teeth Condition: Chipped/Broken (1 chipped left upper molar.) and Missing (1 missing lower incisor. Missing some molars in the back. Rest of the teeth are tight.) Neck Range of motion (ROM): Limited ROM (Somewhat Decreased) Labs Anesthesia Preop lab: CBC WBC 7.1 K/mm3 (4.4-11.0) 03/21/25 06:20 03/21/25 RBC 4.31 M/mm3 (4.2-5.4) 03/21/25 06:20 03/21/25 Hgb 12.8 g/dL (12.0-15.0) 03/21/25 06:20 03/21/25 Hct 37.1 % (37-47) 03/21/25 06:20 03/21/25 Plt Count 240 K/mm3 (150-450) 03/21/25 06:20 03/21/25 CHEMISTRY Potassium 3.5 mmol/L (3.5-5.1) 08/13/24 21:25 08/13/24 Sodium 140 mmol/L (136-145) 08/13/24 21:08/13/24 BUN 23 mg/dL (7-18) H 08/13/24 21:25 08/13/24 Creatinine 0.89 mg/dL (0.55-1.02) 08/13/24 21:08/13/24 Glucose 100 mg/dL (74-106) 08/13/24 21:25 08/13/24 COAG Pre-Assessment Diagnosis/Proposed Procedure Planned Operative Procedure(s): LAP ROBOTIC INGUINAL HERNIA REPAIR WITH MESH POSS BILAT Anesthesia History Anesthesia History - engineering writer: Anesthesia History - engineering writer Hx Hospitalization No 03/07/25 09:44 Any Problems With Anesthesia No 03/07/25 09:44 Cholinesterase deficiency No 03/07/25 09:44 You/Your Family Experience No 03/07/25 09:44 fever (hyperthermia) with Relationship Recent Exposure to Contagious No 03/21/25 06:26 Disease Does patient have nerve No 03/07/25 09:44 stimulator Patient instructed to have device shut off --Does patient have Pacemaker No 03/21/25 06:26 or ICD? When Was Last Pacemaker Check QUESTION #4 FULL TEXT: You/Your Family Experience fever (hyperthermia) with Anesthesia Last Oral Intake Last Oral intake: Last Oral Intake NPO since 20:30 03/21/25 06:26 Meds taken in AM with sips of water? Meds patient instructed to take am of surgery PONV PONV - engineering writer: PONV - engineering writer Female Yes 03/07/25 09:44 HX of Motion Sickness No 03/07/25 09:44 HX of N/V After Surgery No 03/07/25 09:44 Non-Smoker Yes 03/07/25 09:44 Duration of Surgery greater Yes 03/07/25 09:44 than 60 minutes Number of Risk Factors 3 03/07/25 09:44 PONV Score Moderate Risk 03/07/25 09:44 Height & Weight Height & Weight: Anesthesia: Height & Weight Height 4 ft 9 in 03/21/25 06:26 Weight: 67.132 kg 03/21/25 06:26 Body Mass Index (BMI) 32.0 03/21/25 06:26 Respiratory Assessment Respiratory Assessment - engineering writer: Respiratory Tract Infection Hx - engineering writer Hx Respiratory Tract Infection No 03/07/25 09:44 STOP Sleep Apnea STOP Sleep Apnea - engineering writer: STOP Sleep Apnea - engineering writer Hx Hypertension Yes: CONTROLLED WITH MED 03/07/25 09:44 Hx Sleep Apnea Yes 03/07/25 09:44 CPAP Yes: WAS NON COMPLIANT, 03/07/25 09:44 INSURANCE TOOK MACHINE AWAY BIPAP No 03/07/25 09:44 Do you snore loudly (louder than talking or can be heard Do you often feel tired/ fatigued/ sleepy during daytime? Has anyone observed you stop breathing during sleep? STOP Results Positive 03/07/25 09:44 QUESTION #5 FULL TEXT : Do you snore loudly (louder than talking or can be heard through closed doors)? Tobacco Use History Tobacco Use History - engineering writer: Tobacco Use History - engineering writer Tobacco Use Smoking Status Former smoker 03/07/25 09:44 Hx Tobacco Use No 03/07/25 09:44 Years Smoking Packs Smoked per Day Smoking Cessation Date was No - quit smoking greater 03/07/25 09:44 within the last 15 years than 15 years ago Hx Smoking Cessation Date 07/11/99 03/07/25 09:44 Hx Smoking Cessation No 03/07/25 09:44 Counseling Hematologic Medial History Hematologic Hx - engineering writer: Hematologic Medical Hx - documentation engineer Hx of Blood Transfusion No 03/07/25 09:44 Hx of Transfusion in last 3 No 03/07/25 09:44 Months Date of Last Transfusion (if within last 3 months) Ever experience any problems No 03/07/25 09:44 with transfusion(s)? Specify any problems Hx of Preganancy in last 3 No 03/07/25 09:44 Months Nurse Filling Out Transfusion DSCHRIBER 03/07/25 09:44 & Questions: Date: 03/07/25 03/07/25 09:44 Time: 09:45 03/07/25 09:44 Patient unable to answer at this time (ie. confused, unrespo /Reproduction History /Reproductive History - engineering writer: /Reproductive Hx- engineering writer Hx Now No 03/07/25 09:44 Gestational Age (in weeks): EDC: Hx Hx Para Hx Section SAB No 03/07/25 09:44 Active Medications Active Medications: Current Medications Generic Name Dose Route Start Last Admin Trade Name Freq PRN Reason Stop Dose Admin Cefazolin Sodium 2 gm/ Sodium 110 mls @ 200 mls/hr 03/21/25 07:30 Chloride IV 03/21/25 08:02 INTRAOP ONE Lactated Ringer's 1,000 mls @ 15 mls/hr 03/21/25 06:00 03/21/25 06:38 IV 15 mls/hr .Q48H RENETTA Administration PFSH Medical History Post-menopausal Marijuana use Back pain Generalized abdominal pain Genetic testing Wears glasses Depression Anxiety Arthritis Bladder disease High cholesterol Gastric reflux Shortness of breath on exertion Former smoker CPAP (continuous positive airway pressure) dependence Hypertension Home Medications ?Medication ?Instructions ?Recorded ?Last Taken ?Type amlodipine 10 mg tablet 10 mg PO DAILY 10/07/21 03/20/25 History paroxetine HCl 40 mg tablet (Paxil) 40 mg PO DAILY 10/07/21 03/20/25 History atorvastatin 10 mg tablet 10 mg PO QHS 10/08/21 03/20/25 History cholecalciferol (vitamin D3) 50 50 mcg PO DAILY 10/08/21 02/19/25 History mcg (2,000 unit) capsule multivitamin 1 tab PO DAILY 10/08/21 03/20/25 History omeprazole 40 mg capsule,delayed 40 mg PO DAILY 10/08/21 03/20/25 History release osteo biflex 1 tab PO DAILY 10/08/21 02/19/25 History vibegron 75 mg tablet (Gemtesa) 75 mg PO DAILY 10/08/21 03/20/25 History vitamin E 200 unit capsule 200 unit PO DAILY 10/08/21 03/20/25 History Allergy/AdvReac Type Severity Reaction Status Date / Time No Known Allergies Allergy Verified 03/21/25 06:23 Family History Mother Lung cancer Daughter Lung cancer Father Stomach cancer Surgical History Hx of colonoscopy with polypectomy S/P dilation and curettage (~10/14/21) History of Social History Smoking Status: Former smoker alcohol intake: current details: occasionally substance use type: does not use caffeine: Yes what type of physical activity do you participate in: none seatbelt use: always do you feel safe at home: Yes additional social history: Review of Systems (Anesthesia) ROS Narrative System reviewed and no additional complaints, except as documented.
--- NOTE | 2025-03-21 07:11 | PCM.HP.STD ---
HPI - General General Date of Service: 03/21/25 HPI Narrative EDUARDO ARITA, is a 74 F who presents for robotic right inguinal hernia repair with mesh possible bilateral. Patient states she still been having pain in her right lower abdomen notices more with lifting as well. Patient did have multiple tubular adenomas as well as a sessile serrated polyp at colonoscopy 02/20/2025. Office visit 02/02/2025 HPI HPI: 74-year-old female presents for colonoscopy due to a positive fecal occult blood also abnormal CT scan which showed a right inguinal hernia. Patient had a previous x 2 and does complain of pain in the lower aspect of the scar on occasion. Patient was unaware that there is hernia at that location. Patient's last colonoscopy was at [facility] had a polyp at that time patient is unsure exactly the timing of the colonoscopy. Patient states her stools are dark brown does occasionally have some constipation issues but has bowel movements daily does not see any blood. Patient denies any abdominal pain or nausea or vomiting. Patient had CT abdomen pelvis when she went to the ER showed a right renal hernia which has been there in previous CTs upon my read [facility] Medical History Post-menopausal Marijuana use Back pain Generalized abdominal pain Genetic testing Wears glasses Depression Anxiety Arthritis Bladder disease High cholesterol Gastric reflux Shortness of breath on exertion Former smoker CPAP (continuous positive airway pressure) dependence Hypertension Home Medications ?Medication ?Instructions ?Recorded ?Last Taken ?Type amlodipine 10 mg tablet 10 mg PO DAILY 10/07/21 03/20/25 History paroxetine HCl 40 mg tablet (Paxil) 40 mg PO DAILY 10/07/21 03/20/25 History atorvastatin 10 mg tablet 10 mg PO QHS 10/08/21 03/20/25 History cholecalciferol (vitamin D3) 50 50 mcg PO DAILY 10/08/21 02/19/25 History mcg (2,000 unit) capsule multivitamin 1 tab PO DAILY 10/08/21 03/20/25 History omeprazole 40 mg capsule,delayed 40 mg PO DAILY 10/08/21 03/20/25 History release osteo biflex 1 tab PO DAILY 10/08/21 02/19/25 History vibegron 75 mg tablet (Gemtesa) 75 mg PO DAILY 10/08/21 03/20/25 History vitamin E 200 unit capsule 200 unit PO DAILY 10/08/21 03/20/25 History Allergy/AdvReac Type Severity Reaction Status Date / Time No Known Allergies Allergy Verified 03/21/25 06:23 Family History Mother Lung cancer Daughter Lung cancer Father Stomach cancer Surgical History Hx of colonoscopy with polypectomy S/P dilation and curettage (~10/14/21) History of Social History Smoking Status: Former smoker alcohol intake: current details: occasionally substance use type: does not use caffeine: Yes what type of physical activity do you participate in: none seatbelt use: always do you feel safe at home: Yes additional social history: Vital Signs Vital Signs Vital Signs: 03/21/25 06:26 03/21/25 06:26 03/21/25 06:59 Temperature 97.7 F L 97.7 F L Temperature Source Temporal Pulse Rate 77 77 Respiratory Rate 16 16 Respiratory Pattern Normal Blood Pressure 119/57 L 119/57 L Blood Pressure Mean 77 Blood Pressure Source Monitor Blood Pressure Position Semi-Fowlers Blood Pressure Location Left Arm Pulse Ox 98 98 Oxygen Delivery Method Room Air Room Air Weight Weight: 148 lb Body Mass Index (BMI) 32.0 Physical Exam Const alert, oriented x3 and no apparent distress HEENT normocephalic and head/scalp atraumatic Resp normal respiratory effort Cardio regular rate GI soft to palpation; Negative for non-distended Palpation: tender RLQ (Near right inguinal hernia); Negative for guarding Extremity no clubbing, cyanosis or edema Neuro CN's II-XII intact bilaterally Psych mental status grossly normal Results Lab / Micro Data 03/21/25 06:20 Labs: Laboratory Results - last 24 hr 03/21/25 06:20: WBC 7.1, RBC 4.31, Hgb 12.8, Hct 37.1, MCV 86.1, MCH 29.7, MCHC 34.5, RDW Std Deviation 38.9, RDW Coeff of Bernard 12.3, Plt Count 240, MPV 9.5 Assessment & Plan Assessment/Plan (1) Hernia, inguinal, right: PLAN: Plan Plan to do a robotic right renal hernia repair with mesh possible bilateral. Reviewed the procedure with the patient including the risks, including but not limited to infection, bleeding, paresthesia, chronic pain, injury to small bowel, ligation of the round ligament, and recurrence. All questions were answered. Crys Zapien M.D. Pager: [phone] [facility] [address] [place] [address], [address] [place] [id number] Office: [phone]
[2025-03-21] MEDS: Lactated Ringers 1,000 ML 1000 ML IV (07:30)
[2025-03-21] MEDS: Cefazolin 1 GM/5 ML Vial 2 GM IV (07:35)
[2025-03-21] MEDS: fentaNYL 100 MCG/2 ML Ampul 50 MCG IV (07:37)
[2025-03-21] MEDS: Lidocaine 1% (5 ml sdv) 5 ML Vial IV (07:37)
--- NOTE | 2025-03-21 08:37 | OP.PCM_ITS ---
Operative Report (Standard) Operative Information Date of Procedure: 03/21/25 Pre-Operative Diagnosis: Right inguinal hernia Post-Operative Diagnosis: Same Surgery/Procedure Performed: Robotic right inguinal hernia repair with mesh personal assistant: Yes Yard Jockey: Malena Yepez Tasks completed by residential assistant: Opening & closing Type of Anesthesia: General/Supplemental RN Documented Start/Stop Times: Operation Date: 03/21/25 07:30 Case Time Into Pre-Op 03/21/25 05:54 Out of Pre-Op 03/21/25 07:24 Anesthesia Start 03/21/25 07:30 Into Room 03/21/25 07:30 Procedure Start 03/21/25 07:55 Procedure End 03/21/25 08:48 Anesthesia End 03/21/25 08:53 Out of Room 03/21/25 08:53 Into Recovery 03/21/25 08:55 Procedure Start Time: 07:55 Procedure Stop Time: 08:48 Select all DRAINS/GRAFTS/IMPLANTS that apply: Prosthetic device Prosthetic device details: ProGrip mesh lot [id number] Special Medications: Ancef 2 g IV x 1 Estimated Blood Loss: <10 CC Specimen collected: No Description of surgery: Indications: 74-year-old Female presented with right inguinal hernia which was symptomatic. Robotic right inguinal hernia repair with mesh was elected patient was agreeable. Description of procedure: Patient was brought to operating room placed supine operative table. Timeout was completed verifying correct patient, procedure, site, positioning, special, prior to beginning procedure. General anesthesia was induced. Patient's arms were tucked and padded appropriately. Visiport was used to make the incision at Mosher's point in the left upper quadrant. Entry into the abdomen was confirmed visually. Laparoscope was placed. Verifying no injury during initial trocar placement. Patient was pl aced in Trendelenburg position. Two 8 mm trochars were placed along the horizontal line in the midline and in the right upper quadrant. The initial 5 mm trocar was upsized to an 8 mm well under direct visualization. Both the inguinal regions were inspected and right indirect, no hernia on the left. Robot was docked. The median umbilical ligament was divided sharply with electrocautery. Perit oneum was incised with the endoscopic scissors along a line 2 cm above the superior edge of the hernia defect extending from the median umbilical ligament to anterior superior iliac spine. Peritoneal flap was mobilized inferiorly using blunt and sharp dissection. The right indirect hernia sac was inverted and dissected. The round ligament was ligated with electrocautery. The inferior epigastric vessels were exposed and symphysis pubis and identified. A ProGrip mesh was used. The mesh was rolled longitudinally into a compact cylinder and passed through the trocar. The cylinder was placed along the inferior aspect of the working space and unrolled into place to completely cover the direct, indirect and femoral spaces. The peritoneal flap was closed over mesh and secured with 3-0 V-Loc suture. After ensuring adequate hemostasis, the trochars were removed and pneumoperitoneum allowed to escape. The skin was closed with 4-0 Monocryl interrupted sutures and Steri-Strips. Patient tolerated procedure well was taken to the postanesthesia care unit in stable condition. Surgical Findings: See operative report Complications Complications: No
--- NOTE | 2025-03-21 08:40 | EX.PCM.DISCH ---
Discharge Instructions Diet Discharge Diet: Light diet - advance as tolerated Activity Discharge Activity: May Not Drive (while taking narcotic pain medications.) May shower in (days): 1 Lifting Restrictions: no lifting >20 lbs x 2 wks, no strenuous exercise for 4 wks Dressing / Incision Call your doctor if your incision/area has: Continuous Slow Oozing, Sudden Increased Bleeding, Increased Pain/ Swelling, Increased Redness, Foul Smelling Discharge and Swelling at the incision site Call your doctor if you observe: Fever of 101 or Higher Remove Dressing in: 2 days Cleanse incision/area with: Soap & Water Additional Dressing/Incision Instructions:: Steri-Strips will fall off in 7 to 10 days, if they do not fall off okay to remove after 10 days. Follow Up Care Please Follow Up With: Crys Zapien MD When: Call the office for a follow-up appointment 2 weeks; after 5 PM and on the weekends call [phone] with any concerns. Test Results: Test results from this visit will be discussed in further detail at your follow-up appointment, if applicable. Discharge Plan Admission Attending Provider: Crys Zapien Primary Care Provider: Hugo Ro Instructions Additional Instructions / Restrictions: Okay to take ibuprofen 400-600 mg PO q6hr PRN pain and/or Tylenol 650mg PO Q6H PRN pain along with Tramadol. Take all pain meds with food. Tramadol can cause constipation recommend taking daily stool softener (i.e. Colace/docusate) while taking the pain meds. Recommend starting some MiraLAX in 1-2 days if no bowel movement. If still no bowel movement the next day recommend taking magnesium citrate half the bottle and waiting 4-6 hours if still no results take the other half the bottle. Print Language: Icelandic Discharge Orders/Prescriptions Prescriptions: New tramadol 50 mg tablet 50 mg PO Q6H PRN (Reason: pain) 2 Days Qty: 4 0RF Continued paroxetine HCl [Paxil] 40 mg tablet 40 mg PO DAILY amlodipine 10 mg tablet 10 mg PO DAILY omeprazole 40 mg capsule,delayed release(DR/EC) 40 mg PO DAILY Gemtesa 75 mg tablet 75 mg PO DAILY atorvastatin 10 mg tablet 10 mg PO QHS osteo biflex 1 tab PO DAILY multivitamin Tablet 1 tab PO DAILY vitamin E 200 unit capsule 200 unit PO DAILY cholecalciferol (vitamin D3) 50 mcg (2,000 unit) capsule 50 mcg PO DAILY Referrals / Follow Up: Hugo Ro MD [Primary Care Provider] - Disposition Disposition (needs filled in before D/C Order can be placed): Home, Self Care
--- NOTE | 2025-03-21 08:59 | PCM.POST.ANE ---
Anesthesia: Postop Eval I Current Vital Signs Temperature: 96.9 F Pulse Rate: 74 Blood Pressure: 112/61 Respiratory Rate: 16 Pulse Ox: 96 Oxygen Delivery Method: Room Air Assessment Airway patent: Yes Spontaneous unlabored respirations: Yes Mental status: Awake and Calm nausea: No Vomiting: No Anesthesia Complication: No Fluid Hydration Crystalloid volume administer (ml): 1,000 Total IV fluid infused: 1,000 Progress Note Anesthesia document: Postop Eval 1 completed: Yes
--- NOTE | 2025-03-21 14:37 | POSTOPAN2_ITS ---
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 Spontaneous unlabored Yes 03/21/25 09:00 SEAFOOD [email or web address].[email or web address] respirations Mental status Awake,Calm 03/21/25 09:00 SEAFOOD [email or web address].[email or web address] nausea No 03/21/25 09:00 SEAFOOD PROCESSOR.GDOTT Vomiting No 03/21/25 09:00 SEAFOOD PROCESSOR.GDOTT Anesthesia Postop Eval I: Fluid Summary Crystalloid volume administer 1,000 03/21/25 09:00 SEAFOOD [email or web address].GDOTT (ml) Colloids volume administered ( ml) Blood Product volume administered (ml) Total IV fluid infused 1,000 03/21/25 09:00 SEAFOOD PROCESSOR.GDOTT Anesthesia Postop Eval I: Summary Notes Anesthesia Complication No 03/21/25 09:00 SEAFOOD [email or web address].GDOTT Anesthesia Complication Comment: Post-operative progress note Anesthesia: Postop Eval II Evaluation Mental status: Awake and Calm Pain Level: 0 nausea: No Vomiting: No Complications Anesthesia Complication: No
--- NOTE | 2025-03-21 14:37 | PCM.POSTANE2 ---
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 Spontaneous unlabored Yes 03/21/25 09:00 MACHINE REPAIRER.[email or web address] respirations Mental status Awake,Calm 03/21/25 09:00 MACHINE REPAIRER.GDOTT nausea No 03/21/25 09:00 MACHINE REPAIRER.GDOTT Vomiting No 03/21/25 09:00 MACHINE REPAIRER.GDOTT Anesthesia Postop Eval I: Fluid Summary Crystalloid volume administer 1,000 03/21/25 09:00 MACHINE REPAIRER.GDOTT (ml) Colloids volume administered ( ml) Blood Product volume administered (ml) Total IV fluid infused 1,000 03/21/25 09:00 MACHINE REPAIRER.GDOTT Anesthesia Postop Eval I: Summary Notes Anesthesia Complication No 03/21/25 09:00 MACHINE REPAIRER.GDOTT Anesthesia Complication Comment: Post-operative progress note Anesthesia: Postop Eval II Evaluation Mental status: Awake and Calm Pain Level: 0 nausea: No Vomiting: No Complications Anesthesia Complication: No
== END 2025-03-21 12:01 | disposition home or self-care (01) ==
LOC: SDC 05:44 → AC 05:45
PROVIDERS: Anesthesiology; PCP Internal Medicine; Referring Provider Surgery; Visit Provider Surgery
PROC: (CPT 49505; principal; 2025-03-21 07:10)
DX: K40.90 Unilateral inguinal hernia, without obstruction or gangrene, not specified as recurrent (principal); E78.00 Pure hypercholesterolemia, unspecified; I10 Essential (primary) hypertension; Z87.891 Personal history of nicotine dependence; Z79.899 Other long term (current) drug therapy
CPT/HCPCS: 49505; S2900; 00830; 85027; C1781; J2405

== ENCOUNTER → 2025-06-10 | Outpatient (CLI) | payer MEDICARE, MEDICAID, SELFPAY ==
--- NOTE | 2025-06-10 14:45 | BI_ITS ---
EXAM: SCRN MAMM (CAD)W/JJ BILAT DATE: 06/10/2025 CLINICAL HISTORY: F, Age 74 y/o , BREAST CANCER SCREENING TECHNIQUE: Procedure Code: [id number] Modality: MG Procedure: SCRN MAMM (CAD)W/JJ BILAT COMPARISON: Prior exam(s) dated 06/08/2024. FINDINGS: TISSUE DENSITY: There are scattered areas of fibroglandular density. Bilateral Breast Mammographic Findings: There are benign-appearing vascular calcifications and round microcalcifications in both breasts. There are no suspicious masses, suspicious cluster of microcalcifications, architectural distortion or secondary signs of malignancy identified in either breast. BI/SCRN MAMM (CAD)W/JJ BILAT IMPRESSION: Benign screening mammogram OVERALL FINAL ASSESSMENT BI-RADS 2: BENIGN RECOMMENDATION: Routine annual follow-up in 1 Year Additional Recommendation none A letter with findings and recommendations will be mailed to the patient. Reading Location: [id number]
== END | disposition home or self-care (01) ==
LOC: OPBI 14:49
PROVIDERS: PCP Internal Medicine; Referring Provider Obstetrics & Gynecology; Visit Provider Obstetrics & Gynecology
DX: Z12.31 Encounter for screening mammogram for malignant neoplasm of breast (principal)
CPT/HCPCS: 77063; 77067